=== PATIENT | female | born 1945 | race Caucasian/White ===

== ENCOUNTER 2018-05-03 15:05 | Emergency (ER) | payer OTHER, MEDICARE ==
--- OUTSIDE RECORDS SUMMARY | 2018-05-03 15:10 | XMS REPORT | Continuity of Care Document ---
:1945 Author Organization Interface Problems Problem Status Onset Classification Date Comments Source Date Reported ACUTE STROKE Active [address] SARAH Active [facility] BILLING [address] [place] [address] ACUTE STROKE Active [address] CVA Active [address] DVT (<span Resolved Problem 07/10/2014 [facility] ID="[id number] Medical 97">Confirmed Center </span>) CVA Active [facility] Medications Medication Details Route Status Patient Ordering Order Source Instructions Provider Date Warfarin 7.5 mg, 1 tab, Inactive [facility] Route: PO, Drug 2013 Medical form: TAB, Q5PM, Center Dosing Weight 83, kg, Start date: 07/07/14 17:00:00, Duration: 1 doses or times, Stop date: 07/07/14 17:00:00Notes: Nurse to ensure documentation of patient education per anticoagulation policy. Avoid large intake of vitamin-K containing foods diet. (Same As: Coumadin) atorvastatin 20 20 mg=1 tab, PO, Active 07/07[facility] mg oral tablet Bedtime, # 30 2014 Medical tab, 3 Refill(s) Center aspirin 325 mg 325 mg=1 tab, PO, Active 07/07[facility] tablet Daily, # 100 tab, 2014 Medical 3 Refill(s) Center warfarin 7.5 mg 7.5 mg, PO, Q5PM, Active 07/07[facility] oral tablet # 5 tab, 0 2013 Medical Refill(s) Center OLANZapine 2.5 2.5 mg=1 tab, PO, Active 07/07[facility] mg oral tablet Q6H, Agitation, 0 2013 Medical Refill(s) Center 0.4 mg=1 tab, PO, Active 07/07[facility] Multivitamins Daily, 0 2013 Medical with Folic Acid Refill(s) Center 0.4 mg oral tablet Folic Acid 1 MG 1 mg=1 tab, PO, Active 07/07[facility] Oral Tablet Daily, 0 2013 Medical Refill(s) [place] Docusate Sodium 100 mg=1 cap, PO, Active [place] 100 MG Oral Q12H, 0 Refill(s) 2013 Medical Capsule Center benzonatate 100 100 mg=1 cap, PO, Active [facility] mg oral capsule TID, Cough, 0 2013 Medical Refill(s) [place] Acetaminophen 650 mg=2 tab, PO, Active [place] 325 MG Oral Q4H, Pain 2013 Medical Tablet 1-3/Temp > 99.5 Center F, 0 Refill(s) Warfarin 5 mg, 1 tab, Inactive [place] Route: PO, Drug 2013 Medical form: TAB, Q5PM, Center Dosing Weight 83, kg, Start date: 07/06/14 17:00:00, Duration: 1 doses or times, Stop date: 07/06/14 17:00:00Notes: Nurse to ensure documentation of patient education per anticoagulation policy. Avoid large intake of vitamin-K containing foods diet. (Same As: Coumadin) cefpodoxime 100 mg, Route: Inactive [place] PO, Drug form: 2013 Medical TAB, [id number], Center Dosing Weight 83, kg, Priority: NOW, Start date: 07/06/14 11:17:00, Duration: 7 day, Stop date: 07/12/14 23:17:00 benzonatate 100 mg, 1 cap, No Longer [place] Route: PO, Drug Active 2013 Medical form: CAP, TID, Center Dosing Weight 83, kg, PRN Cough, Start date: 07/06/14 2:28:00, Duration: 30 day, Stop date: 08/05/14 2:27:00Notes: (Same As: Simran Red) "Do Not Crush" Mag-Ox 400 800 mg, 2 tab, Inactive [place] Route: PO, Drug 2013 Medical form: TAB, ONCE, Center Dosing Weight 83, kg, Start date: 07/05/14 15:55:00, Stop date: 07/05/14 15:55:00Notes: (Same as: Mag-Ox 400) Magnesium oxide [id number] elemental magnesium Dose=____mg magnesium oxide (___mg elemental magnesium) Lactated Ringers 1,000 mL, Rate: Inactive [facility] IV 1000 mL 100 ml/hr, Infuse 2013 Medical over: 10 hr, Center Route: IV, Dosing Weight 83 kg, Total Volume: 1,000, Start date: 07/05/14 11:26:00, Duration: 30 day, Stop date: 08/04/14 11:25:00 Lactated Ringers 1,000 mL, Rate: No Longer [facility] IV 1,000 mL 100 ml/hr, Infuse Active 2013 Medical over: 10 hr, Center Route: IV, Dosing Weight 83 kg, Total Volume: 1,000, Priority: STAT, Start date: 07/05/14 10:06:00, Duration: 30 day, Stop date: 08/04/14 10:05:00 Magnesium 2 gm, 50 mL, Inactive [facility] Sulfate Route: IVPB, Drug 2013 Medical form: INJ, ONCE, Center Dosing Weight 83, kg, Total dose=2 gm, Start date: 07/05/14 10:05:00, Duration: 1 doses or times, Stop date: 07/05/14 10:05:00 normal saline 1,000 mL, Rate: Inactive [facility] 0.9% IV 1,000 mL 125 ml/hr, Infuse 2013 Medical over: 8 hr, Center Route: IV, Dosing Weight 83 kg, Total Volume: 1,000, Start date: 07/05/14 9:24:00, Duration: 1 day, Stop date: 07/06/14 9:23:00 Rocephin 1 gm, Route: No Longer [facility] IVPB, Drug form: Active 2013 Medical PDR/INJ, [id number], Center Dosing Weight 83, kg, Start date: 07/05/14 8:00:00, Duration: 30 day, Stop date: 08/03/14 8:00:00Notes: Use with 100ml NS mini-bag PLUS and infuse over 30 min ZyPREXA 2.5 mg, 1 tab, Inactive [facility] Route: PO, Drug 2013 Medical form: TAB, Center Bedtime, Start date: 07/04/14 21:00:00, Duration: 1 doses or times, Stop date: 07/04/14 21:00:00Notes: (Same as: ZyPREXA) Geodon 5 mg, Route: IM, Inactive [facility] Q4H, Dosing 2013 Medical Weight 83, kg, Center Start date: 07/04/14 21:00:00, Duration: 30 day, Stop date: 08/03/14 20:00:00 ZyPREXA 2.5 mg, 1 tab, No Longer [facility] Route: PO, Drug Active 2013 Medical form: TAB, Q6H, Center PRN Agitation, Start date: 07/04/14 17:08:00, Duration: 30 day, Stop date: 08/03/14 17:07:00Notes: (Same as: ZyPREXA) folic acid 1 mg 1 mg, 1 tab, No Longer [facility] oral tablet Route: PO, Drug Active 2013 Medical form: TAB, Daily, Center Start date: 07/04/14 17:00:00, Duration: 30 day, Stop date: 08/03/14 9:00:00Notes: (Same as: Folvite) Sodium Chloride 250 mL, Rate: 999 Inactive [facility] 0.9% IV 250 mL ml/hr, Infuse 2013 Medical over: 0.3 hr, Center Route: IV, Dosing Weight 83 kg, Total Volume: 250, Start date: 07/04/14 14:45:00, Duration: 1 doses or times, Stop date: 07/04/14 15:02:00 Sodium Chloride 500 mL, Rate: 999 Inactive [facility] 0.9% IV 500 mL ml/hr, Infuse 2013 Medical over: 0.5 hr, Center Route: IV, Dosing Weight 83 kg, Total Volume: 500, Start date: 07/04/14 14:44:00, Duration: 1 doses or times, Stop date: 07/04/14 15:13:00 Benadryl 25 mg, 1 cap, Inactive [facility] Route: PO, Drug 2013 Medical form: CAP, ONCE, Center Dosing Weight 83, kg, PRN Itching, Start date: 07/04/14 12:20:00, Stop date: 08/03/14 13:19:00Notes: (Same as: Benadryl) Ativan 1 mg, 0.5 mL, Inactive [place] Route: IV, Drug 2013 Medical form: INJ, Center ONCALL, Dosing Weight 83, kg, Start date: 07/04/14 4:00:00, Duration: 1 doses or times, Stop date: 07/05/14 0:00:00Notes: (Same as: Ativan) heparin, porcine 5,000 unit, 1 mL, No Longer [facility] Route: SUB-Q, Active 2013 Medical Drug form: INJ, Center Q8H, Dosing Weight 83, kg, Start date: 07/04/14 0:00:00, Duration: 30 day, Stop date: 08/02/14 16:00:00Notes: porcine heparin aspirin 325 mg 325 mg, 1 tab, No Longer [facility] tablet Route: PO, Drug Active 2013 Medical form: ECTAB, Center Daily, Dosing Weight 83, kg, Start date: 07/03/14 22:00:00, Duration: 30 day, Stop date: 08/01/14 22:00:00Notes: (Do Not Crush) Do not crush or chew. atorvastatin 20 mg, 1 tab, No Longer [facility] Route: PO, Drug Active 2013 Medical form: TAB, Center Bedtime, Dosing Weight 83, kg, Start date: 07/03/14 21:00:00, Stop date: 08/01/14 21:00:00Notes: (Same As: Lipitor) sennosides, HALF-WAY 8.6 mg, 1 tab, No Longer [facility] Route: PO, Drug Active 2013 Medical Form: TAB, Dosing Center Weight 83, kg, BID, Start date: 07/03/14 17:00:00, Duration: 30 day, Stop date: 08/02/14 9:00:00Notes: (Same as: Senokot) pantoprazole 40 mg, Route: Inactive [place] IVP, Drug form: 2013 Medical INJ, Before Center Dinner, Dosing Weight 79.545, kg, Start date: 07/03/14 16:30:00, Duration: 30 day, Stop date: 08/01/14 16:30:00Notes: For IV push reconstitute with 10 ml 0.9% sodium chloride and push over 2 minutes. (Same as: Protonix) Sodium Chloride 1,000 mL, Rate: No Longer [place] 0.154 MEQ/ML 75 ml/hr, Infuse Active 2013 Medical Injectable over: 13.3 hr, [place] Solution Route: IV, Dosing Weight 83 kg, Total Volume: 1,000, Start date: 07/03/14 16:25:00, Duration: 12 hr, Stop date: 07/04/14 4:24:00 Thiamine 100 mg, 1 tab, No Longer [facility] Route: PO, Drug Active 2013 Medical form: TAB, Daily, Center Dosing Weight 83, kg, Start date: 07/03/14 12:00:00, Duration: 30 day, Stop date: 08/02/14 9:00:00Notes: (Same As: Vitamin B1) 1 tab, Route: PO, No Longer [place] Multivitamins Drug Form: TAB, Active 2013 Medical with Folic Acid Dosing Weight 83, Center 0.8 mg oral kg, Daily, Start tablet date: 07/03/14 12:00:00, Duration: 30 day, Stop date: 08/02/14 9:00:00 Saline Flush 10 ml, Route: No Longer [place] 0.9% IVP, Drug Form: Active 2013 Medical INJ, Dosing Center Weight 79.545, kg, Q12H, Start date: 07/03/14 9:00:00, Duration: 30 day, Stop date: 08/01/14 21:00:00Notes: (Same as: BD Posiflush) pneumococcal 0.5 ml, Route: Inactive [facility] capsular IM, Drug Form: 2013 Medical polysaccharide INJ, Daily, Start Center type 1 vaccine / date: 07/03/14 pneumococcal 9:00:00, capsular Duration: 1 doses polysaccharide or times, Stop type 10A vaccine date: 07/03/14 / pneumococcal 9:00:00Notes: capsular (Same as: polysaccharide Pneumovax 23) type 11A vaccine Refrigerate / pneumococcal capsular polysaccharide type 12F vaccine / pneumococcal capsular polysacchar Influenza Virus 0.5 mL, Route: Inactive [facility] Vaccine, IM, Drug Form: 2013 Medical Inactivated SUSP, Daily, [place] [id number] Start date: 07 (H3N2)-like 07/03/14 9:00:00, virus Duration: 1 doses ([id number] or times, Stop 007 [facility] X-175C) date: 07/03/14 strain / 9:00:00Notes: Influenza Virus (Same as: Fluzone Vaccine, Quadrivalent) Inactivated [id number] 07, IVR-148 (H1N1) strain / Influenza Virus Vaccine, Inactivated, I-Bkhdcwt-4 -lik Docusate 100 mg, 1 cap, No Longer [place] Route: PO, Drug Active 2013 Medical form: CAP, Q12H, Center Dosing Weight 83, kg, Start date: 07/03/14 9:00:00, Duration: 30 day, Stop date: 08/01/14 21:00:00Notes: (Same as: Colace) (Do Not Crush) Diltiazem 20 mg, 4 mL, Inactive [place] Route: IVP, Drug 2013 Medical form: INJ, ONCE, Center Dosing Weight 83, kg, PRN Other -See Comment, Start date: 07/03/14 8:58:00Notes: (Same as: Cardizem) magnesium 2 gm, 50 mL, Inactive [facility] sulfate Route: IVPB, Drug 2013 Medical form: INJ, Q2H, Center Start date: 07/03/14 6:00:00, Duration: 2 doses or times, Stop date: 07/03/14 8:00:00 calcium 3,000 mg, 30 mL, Inactive [facility] gluconate + Route: IV, ONCE, 2013 Medical Sodium Chloride Start date: [place] 0.9% IV 100 mL 07/03/14 6:00:00, Stop date: 07/03/14 6:00:00 Sodium Chloride 500 mL, 500 Inactive [facility] 0.154 MEQ/ML ml/hr, Infuse 2013 Medical Injectable Over: 1 hr, [place] Solution Route: IV, 500, Drug form: INJ, ONCE, Priority: STAT, Dosing Weight 83 kg, Start date: 07/03/14 3:50:00, Duration: 1 doses or times, Stop date: 07/03/14 3:50:00 Omnipaque 300 50 ml, Route: Inactive 07/03[facility] [place] INTRAARTERIAL, 2013 Medical Dosing Weight Center 79.545, kg, ONCE, Start date: 07/03/14 0:20:00, Stop date: 07/03/14 0:20:00 Saline Flush 10 ml, Route: No Longer [place] 0.9% IVP, Drug Form: Active 2013 Medical INJ, Dosing Center Weight 79.545, kg, PRN, PRN [place] Flush, Start date: 07/02/14 22:10:00, Duration: 30 day, Stop date: 08/01/14 21:09:00Notes: (Same as: BD Posiflush) Acetaminophen 650 mg, 2 tab, No Longer [place] Route: PO, Drug Active 2013 Medical form: TAB, Q4H, Center Dosing Weight 79.545, kg, PRN Pain 1-3/Temp > 99.5 F, Start date: 07/02/14 22:10:00, Duration: 30 day, Stop date: 08/01/14 22:09:00Notes: Do not exceed 4 gm/day. (Same as: Tylenol) Bisacodyl 10 mg, 1 supp, No Longer [place] Route: [place], Drug Active 2013 Medical form: SUPP, Center Daily, Dosing Weight 79.545, kg, PRN Constipation, Start date: 07/02/14 22:10:00, Duration: 30 day, Stop date: 08/01/14 22:09:00Notes: (Same As: Dulcolax, Bisco-Lax) Nicardipine 40 mg, 200 mL, No Longer [place] Rate: Start at 5 Active 2013 Medical mg/hr., Dosing Center Weight 79.545, kg, Route: IV, Total Volume: 200, Titrate to maintain SBP 140-180mmHg., Start Date: 07/02/14 22:10:00, Duration: 30 day, Stop date: 08/01/14 22:09:00, Replace Every: 24 hrNotes: Same as: Cardene Concentration: (0.2 mg /1 ml ) Enalapril 0.625 mg, 0.5 mL, No Longer [place] Route: IVP, Drug Active 2013 Medical form: INJ, Q6H, Center Dosing Weight 79.545, kg, PRN Hypertension, Start date: 07/02/14 22:10:00, Duration: 30 day, Stop date: 08/01/14 22:09:00, For SBP > 180mmHg and/or DBP > 105mmHgNotes: (Same as: Vasotec-IV) Labetalol 10 mg, 2 mL, No Longer [place] Route: IVP, Drug Active 2013 Medical form: INJ, Center Q10Min, Dosing Weight 79.545, kg, PRN Hypertension, Start date: 07/02/14 22:10:00, Duration: 30 day, Stop date: 08/01/14 21:09:00, For SBP > 180mmHg and/or DBP > 105mmHg Sodium Chloride 1,000 mL, Rate: No Longer [place] 0.154 MEQ/ML 75 ml/hr, Infuse Active 2013 Medical Injectable over: 13.3 hr, Center Solution Route: IV, Dosing Weight 79.545 kg, Total Volume: 1,000, Start date: 07/02/14 22:10:00, Duration: 30 day, Stop date: 08/01/14 22:09:00 Alteplase 64.4 mg, Route: Inactive [place] IV, ONCE, Dosing 2013 Medical Weight 79.545, Center kg, For Stroke Infusion, Start date: 07/02/14 21:58:00, Stop date: 07/02/14 21:58:00 Zofran 4 mg, 2 mL, No Longer [place] Route: IVP, Drug Active 2013 Medical form: INJ, Q8H, Center Dosing Weight 79.545, kg, PRN as needed for nausea/vomiting, Priority: STAT, Start date: 07/02/14 21:57:00, Duration: 30 day, Stop date: 08/01/14 21:56:00Notes: (Same as: Zofran) Zofran 4 mg, Route: IVP, Inactive [place] Drug form: INJ, 2013 Medical ONCE, Dosing Center Weight 79.545, kg, Priority: STAT, Start date: 07/02/14 21:54:00, Stop date: 07/02/14 21:54:00 iodixanol 125 mL, Route: Inactive [facility] IVP, Drug Form: 2013 Medical SOLN, Dosing Center Weight 79.545, kg, ONCALL, STAT, Start date: 07/02/14 21:53:00, Duration: 1 doses or times, Dose=2.2ml/kg, Max [id number]=[id number] -- "To be infused by Radiology Staff ONLY"Special Instructions: Dose=2.2ml/kg, Max mqur=[id number] -- "To be infused by Radiology Staff ONLY" aspirin 0 Refill(s) No Longer [facility] Active 2013 [facility] Saline Flush 10 mL, Route: No Longer [facility] 0.9% IVP, Drug Form: Active 2013 [facility] INJ, kg, PRN, PRN [place] Flush, Start date: 07/02/14 21:34:00, Duration: 30 day, Stop date: 08/01/14 20:33:00Notes: (Same as: BD Posiflush) Allergies, Adverse Reactions, Alerts Substance Category Reaction Severity Reaction Status Date Comments Source type Reported sulfa drugs Assertion Drug Active [facility] Immunizations Immunization Date Given Site Status Last Comments Source Updated pneumococcal 07/04/2014 Left completed [facility] 23-valent vaccine [facility] influenza virus 07/04/2014 Right completed [facility] vaccine, [facility] Results Order Name Results Value Reference Date Interpretation Comments Source Range URINE AND Occult Bld Negative Negative 07/07 [facility] STOOL [facility] (07/07/14 3:42 PM) Center ELECTROLYTE AGAP 14.5 meq/L 10.0 - 07/07 [facility] S 20.0 [facility] ELECTROLYTE Potassium Lvl 4.5 meq/L 3.5 - 5.1 07/07 [facility] S [facility] ELECTROLYTE Sodium Lvl 142 meq/L 135 - 145 07/07 [facility] S [facility] ELECTROLYTE Calcium Lvl 8.6 mg/dL 8.5 - 10.5 07/07 [facility] S [facility] ELECTROLYTE CO2 22 meq/L 24 - 32 07/07 [facility] S [facility] ELECTROLYTE Chloride Lvl 110 meq/L 95 - 109 07/07 [facility] S [facility] ELECTROLYTE eGFR 58 07/07 1Result Comment: The eGFR is calculated using the CKD-EPI formula. In most young, healthy individuals the eGFR will be > 90 mL/min/1.73m2. The eGFR declines with age. An eGFR of 60-89 may be normal in [facility] mL/min/1. some populations, particularly the elderly, for whom the CKD-EPI formula has not been extensively validated. Use of the eGFR is not recommended in the following populations: [address] Individuals with unstable creatinine concentrations, including patients and those with serious co-morbid conditions. Patients with extremes in muscle mass or diet. The data above are obtained from the National Kidney Disease Education Program (NKDEP) which additionally recommends that when the eGFR is used in patients with extremes of body mass index for purposes of drug dosing, the eGFR should be multiplied by the estimated BMI. ELECTROLYTE Creatinine 1.0 mg/dL 0.5 - 1.4 07/07 [facility] Lvl [facility] ELECTROLYTE BUN 23 mg/dL 7 - 07/07 [facility] S [facility] ELECTROLYTE Glucose Lvl 97 mg/dL 70 - 99 07/07 4Interpretive Data: Adult reference range values reflect the clinical guidelines [facility] of the [employer]. [facility] HEMATOLOGY PT 12.7 s 12.0 - 07/07 [facility] . [facility] HEMATOLOGY INR 0.95 0.85 - 07/07 10Interpretive Data: RECOMMENDED RANGES FOR PROTIME INR: [facility] 1.17 2.0-3.0 for most medical and surgical thromboembolic states. Medical 2.5-3.5 for artificial heart valves and recurrent embolism. Center INR SHOULD BE USED ONLY FOR PATIENTS ON STABLE ANTICOAGULANT THERAPY. HEMATOLOGY RDW 13.8 % 11.5 - 07/07 [place] 14.5 [facility] HEMATOLOGY RBC 3.59 M/CMM 4.20 - 07/07 [place] 5.40 [facility] HEMATOLOGY WBC 12.1 K/CMM 3.7 - 10.4 07/07 [facility] HEMATOLOGY Hgb 11.5 g/dL 12.0 - 07/07 [place] 16.0 [facility] HEMATOLOGY Hct 36.0 % 36.0 - 07/07 [place] 48.0 [facility] HEMATOLOGY MCV 100.3 fL 80.0 - 07/07 [place] 98.0 /2013 [facility] HEMATOLOGY MCH 32.0 pg 27.0 - 07/07 [place] 31.0 [facility] HEMATOLOGY MCHC 31.9 g/dL 32.0 - 07/07 36.0 [facility] HEMATOLOGY MPV 11.4 fL 7.4 - 10.4 07/07 [facility] HEMATOLOGY Platelet 175 K/CMM 133 - 450 07/07 [facility] HEMATOLOGY Monocytes 14.9 % 2.0 - 12.0 07/07 [facility] HEMATOLOGY Eosinophils 3.5 % 0.0 - 4.0 07/07 [facility] HEMATOLOGY Basophils 0.4 % 0.0 - 1.0 07/07 [facility] HEMATOLOGY Lymphocytes # 3.9 K/CMM 1.0 - 5.5 07/07 [facility] HEMATOLOGY Monocytes # 1.8 K/CMM 0.0 - 0.8 07/07 [facility] HEMATOLOGY Segs-Bands # 5.9 K/CMM 1.5 - 8.1 07/07 [facility] HEMATOLOGY Eosinophils # 0.4 K/CMM 0.0 - 0.5 07/07 [facility] HEMATOLOGY Macrocyte 1+ None Seen 07/07 Medical *ABN* Center (07/07/14 1:00 AM) HEMATOLOGY Lymphocytes 32.6 % 20.0 - 07/07 [facility] 40.0 /2013 [facility] HEMATOLOGY Segs 48.6 % 45.0 - 07/07 [facility] 75.0 /2013 [facility] HEMATOLOGY PT 13.9 s 12.0 - 07/07 [facility] 14.7 [facility] HEMATOLOGY INR 1.07 0.85 - 07/07 11Interpretive Data: RECOMMENDED RANGES FOR PROTIME INR: [facility] 1. 2.0-3.0 for most medical and surgical thromboembolic states. Medical 2.5-3.5 for artificial heart valves and recurrent embolism. Center INR SHOULD BE USED ONLY FOR PATIENTS ON STABLE ANTICOAGULANT THERAPY. HEMATOLOGY PTT 35.0 s 22.9 - 07/07 13Interpretiv [facility] 35.8 e Data: [facility] Center Therapeutic Range: 57 - 92 Seconds ANEMIA Folate Lvl 14.3 ng/mL >=3.0 07/06 [facility] STUDY ng/mL [facility] ANEMIA Vitamin B12 908 pg/mL 254 - 1320 07/06 [facility] STUDY Lvl [facility] ANEMIA UIBC 245 ug/dl 110 - 370 07/06 [facility] ANEMIA % [place] 18 % 12 - 57 07/06 [facility] ANEMIA Iron 52 ug/dl 30 - 160 07/06 [facility] ANEMIA TIBC 297 ug/dl 228 - 428 07/06 [facility] ANEMIA Transferrin 227 mg/dL 212 - 360 07/06 [facility] HEMATOLOGY Monocytes 15.2 % 2.0 - 12.0 07/06 [facility] HEMATOLOGY Eosinophils # 0.3 K/CMM 0.0 - 0.5 07/06 [facility] HEMATOLOGY Monocytes # 1.6 K/CMM 0.0 - 0.8 07/06 [facility] HEMATOLOGY Basophils 0.4 % 0.0 - 1.0 07/06 [facility] HEMATOLOGY Eosinophils 3.2 % 0.0 - 4.0 07/06 [facility] HEMATOLOGY Lymphocytes # 3.4 K/CMM 1.0 - 5.5 07/06 [facility] HEMATOLOGY Segs-Bands # 5.3 K/CMM 1.5 - 8.1 07/06 [facility] HEMATOLOGY Segs 49.6 % 45.0 - 07/06 75.0 [facility] HEMATOLOGY Plt Morph Normal 07/06 [facility] (07/06/14 2:30 AM) [place] HEMATOLOGY Lymphocytes 31.6 % 20.0 - 07/06 40. [facility] HEMATOLOGY RBC Morph Normal 07/06 [facility] (07/06/14 2:30 AM) Center HEMATOLOGY WBC 10.6 K/CMM 3.7 - 10.4 07/06 [facility] HEMATOLOGY MCV 97.8 fL 80.0 - 07/06 98.0 [facility] HEMATOLOGY Hct 37.0 % 36.0 - 07/06 48. [facility] HEMATOLOGY Hgb 12.1 g/dL 12.0 - 07/06 16. [facility] HEMATOLOGY RBC 3.78 M/CMM 4.20 - 07/06 [place] 5. [facility] HEMATOLOGY MCHC 32.8 g/dL 32.0 - 07/06 [place] 36.0 [facility] HEMATOLOGY MCH 32.1 pg 27.0 - 07/06 [place] 31.0 [facility] HEMATOLOGY RDW 13.9 % 11.5 - 07/06 14. [facility] HEMATOLOGY MPV 12.2 fL 7.4 - 10.4 07/06 [facility] HEMATOLOGY Platelet 167 K/CMM 133 - 450 07/06 [facility] CARDIAC Troponin-T null 0.000 - 07/05 [place] ENZYMES 0.100 [facility] CARDIAC Total CK 123 unit/L 12 - 191 07/05 ENZYMES [facility] CARDIAC Troponin-I 0.02 ng/mL 0.00 - 07/05 [facility] ENZYMES 0.40 [facility] CARDIAC CK MB Index 1.0 0.0 - 2.5 07/05 ENZYMES [facility] CARDIAC CK MB 1.2 ng/mL 0.5 - 3.6 07/05 [facility] HEMATOLOGY Basophils 0.7 % 0.0 - 1.0 07/05 [facility] HEMATOLOGY Eosinophils 2.4 % 0.0 - 4.0 07/05 [facility] HEMATOLOGY Segs-Bands # 5.3 K/CMM 1.5 - 8.1 07/05 [facility] HEMATOLOGY Lymphocytes # 2.1 K/CMM 1.0 - 5.5 07/05 [facility] HEMATOLOGY Monocytes # 1.4 K/CMM 0.0 - 0.8 07/05 [facility] HEMATOLOGY Eosinophils # 0.2 K/CMM 0.0 - 0.5 07/05 [facility] HEMATOLOGY Basophils # 0.1 K/CMM 0.0 - 0.2 07/05 [facility] HEMATOLOGY Segs 58.2 % 45.0 - 07/05 [place] 75.0 [facility] HEMATOLOGY Monocytes 15.5 % 2.0 - 12.0 07/05 [facility] HEMATOLOGY Lymphocytes 23.2 % 20.0 - 07/05 [place] 40.0 [facility] HEMATOLOGY MCHC 33.0 g/dL 32.0 - 07/05 36.0 [facility] HEMATOLOGY RDW 14.0 % 11.5 - 07/05 [facility] [place] 14. [facility] HEMATOLOGY WBC 9.1 K/CMM 3.7 - 10.4 07/05 [facility] HEMATOLOGY RBC 3.13 M/CMM 4.20 - 07/05 5.40 [facility] HEMATOLOGY Hgb 10.1 g/dL 12.0 - 07/05 16.0 [facility] HEMATOLOGY Platelet 142 K/CMM 133 - 450 07/05 [facility] HEMATOLOGY MPV 12.1 fL 7.4 - 10.4 07/05 [facility] HEMATOLOGY Hct 30.7 % 36.0 - 07/05 48.0 [facility] HEMATOLOGY MCH 32.3 pg 27.0 - 07/05 31.0 [facility] HEMATOLOGY MCV 98.0 fL 80.0 - 07/05 [facility] 98.0 [facility] HEMATOLOGY Basophils # 0.1 K/CMM 0.0 - 0.2 07/05 [facility] CHEM PANEL Magnesium Lvl 1.6 mg/dL 1.8 - 2.4 07/05 [facility] CHEM PANEL Phosphorus 3.7 mg/dL 2.5 - 4.5 07/05 [facility] CHEM PANEL eGFR 76 07/05 2Result Comment: The eGFR is calculated using the CKD-EPI formula. In most young, healthy individuals the eGFR will be >90 mL/ min/1.73m2. The eGFR declines with age. An eGFR of 60-89 may be normal in [facility] mL/min/1.7 some populations, particularly the elderly, for whom the CKD-EPI formula has not been extensively validated. Use of the eGFR is not recommended in the following populations: [address] Individuals with unstable creatinine concentrations, including patients and those with serious co-morbid conditions. Patients with extremes in muscle mass or diet. The data above are obtained from the National Kidney Disease Education Program (NKDEP) which additionally recommends that when the eGFR is used in patients with extremes of body mass index for purposes of drug dosing, the eGFR should be multiplied by the estimated BMI. CHEM PANEL CO2 25 meq/L 24 - 32 07/05 [facility] CHEM PANEL Calcium Lvl 8.3 mg/dL 8.5 - 10.5 07/05 [facility] CHEM PANEL Sodium Lvl 145 meq/L 135 - 145 07/05 [facility] CHEM PANEL BUN 15 mg/dL 7 - 22 07/05 [facility] CHEM PANEL Creatinine 0.8 mg/dL 0.5 - 1.4 07/05 [facility] CHEM PANEL Chloride Lvl 112 meq/L 95 - 109 07/05 [facility] CHEM PANEL Potassium Lvl 4.5 meq/L 3.5 - 5.1 07/05 [facility] CHEM PANEL Glucose Lvl 89 mg/dL 70 - 99 07/05 5Interpretive Data: Adult reference range values reflect the clinical guidelines of the [employer]. [facility] CHEM PANEL AGAP 12.5 meq/L 10.0 - 07/05 . [facility] DRUG SCREEN U Phencyc Scr Negative Negative 07/05 Medical *NA* [place] (07/04/14 7:50 PM) DRUG SCREEN UDS Note See Note 8 07/05 8Interpretive Data: Drugs reported as positive have not been confirmed by a second method and should be used for medical purposes only. To order Medical (07/04/14 7:50 PM) confirmation, contact laboratory. Center note: Below are cut-off concentrations for all urine drugs of abuse performed in the laboratory. Some drugs listed in the table may not be included in this panel. Description Cut-off concentration Amphetamine 1000 ng/mL Barbiturates 200 ng/mL Benzodiazepines 300 ng/mL Cocaine metabolites 300 ng/mL Opiates 300 ng/mL Phencyclidine 25 ng/mL Propoxyphene 300 ng/mL Marijuana metabolites 50 ng/mL Methadone 300 ng/mL Urine alcohol 20 mg/dL DRUG SCREEN U Shauna Scr Negative Negative 07/05 Medical *NA* Center (07/04/14 7:50 PM) DRUG SCREEN U Benzodia Positive Negative 07/05 Medical *ABN* Center (07/04/14 7:50 PM) DRUG SCREEN U Cannab Scr Negative Negative 07/05 Medical *NA* Center (07/04/14 7:50 PM) DRUG SCREEN U Cocaine Scr Negative Negative 07/05 [facility] *NA* Center (07/04/14 7:50 PM) DRUG SCREEN U Opiate Scr Negative Negative 07/05 [facility] *NA* Center (07/04/14 7:50 PM) DRUG SCREEN U Amph Scr Negative Negative 07/05 [facility] *NA* Center (07/04/14 7:50 PM) URINE AND UA <=1.0 0.1 - 1.0 07/05 [facility] Urobilinogen mg/dL [facility] URINE AND UA RBC 1 /HPF 0 - 2 07/05 [facility] URINE AND UA Mucus Few /LPF None Seen 07/05 [place] STOOL /LPF [facility] URINE AND UA Hyal Cast 1 /LPF 0 - 2 07/05 [facility] URINE AND UA WBC 9 /HPF 0 - 5 07/05 [facility] URINE AND UA Glucose Negative Negative 07/05 [facility] mg/dL mg/dL [facility] URINE AND UA Ketones Negative Negative 07/05 [facility] mg/dL mg/dL [facility] URINE AND UA pH 5.0 5.0 - 8.0 07/05 [facility] URINE AND UA Protein Negative Negative 07/05 [facility] mg/dL mg/dL [facility] URINE AND UA Spec Grav 1.010 <=1.030 07/05 [facility] URINE AND UA Leuk Est Moderate Negative 07/05 [facility] *ABN* Center (07/04/14 7:50 PM) URINE AND UA Sq Epi Few /LPF Few /LPF 07/05 [facility] URINE AND UA Bili Negative Negative 07/05 [facility] Medical *NA* [place] (07/04/14 7:50 PM) URINE AND UA Blood Negative Negative 07/05 [facility] (07/04/14 7:50 PM) Center URINE AND UA Nitrite Negative Negative 07/05 [facility] (07/04/14 7:50 PM) Center URINE AND UA Color Yellow Yellow 07/05 [facility] Medical *NA* Center (07/04/14 7:50 PM) URINE AND UA Turbidity Clear Clear 07/05 [facility] (07/04/14 7:50 PM) [place] CHEM PANEL Lactic Acid 1.0 mMol/L 0.5 - 2.2 07/04 [facility] CHEM PANEL Globulin 2.5 g/dL 2.0 - 4.0 07/04 [facility] CHEM PANEL A/G Ratio 1.3 0.7 - 1.6 07/04 [facility] CHEM PANEL Bili Indirect 0.3 mg/dL 0.0 - 1.0 07/04 [facility] CHEM PANEL Total Protein 5.7 g/dL 6.4 - 8.4 07/04 [facility] CHEM PANEL Alk Phos 61 unit/L 39 - 136 07/04 [facility] CHEM PANEL Albumin Lvl 3.2 g/dL 3.5 - 5.0 07/04 [facility] CHEM PANEL ALT 21 unit/L 0 - 65 07/04 [facility] CHEM PANEL AST 16 unit/L 0 - 37 07/04 [facility] CHEM PANEL Bili Direct 0.1 mg/dL 0.0 - 0.3 07/04 [facility] CHEM PANEL Bili Total 0.4 mg/dL 0.2 - 1.3 07/04 [facility] CHEM PANEL Phosphorus 3.3 mg/dL 2.5 - 4.5 07/04 [facility] CHEM PANEL Magnesium Lvl 1.8 mg/dL 1.8 - 2.4 07/04 [facility] CHEM PANEL eGFR 66 07/04 3Result Comment: The eGFR is calculated using the CKD-EPI formula. In most young, healthy individuals the eGFR will be >90 mL/ min/1.73m2. The eGFR declines with age. An eGFR of 60-89 may be normal in [facility] mL/min/1. some populations, particularly the elderly, for whom the CKD-EPI formula has not been extensively validated. Use of the eGFR is not recommended in the following populations: [place] [address] [facility] Individuals with unstable creatinine concentrations, including patients and those with serious co-morbid conditions. Patients with extremes in muscle mass or diet. The data above are obtained from the National Kidney Disease Education Program (NKDEP) which additionally recommends that when the eGFR is used in patients with extremes of body mass index for purposes of drug dosing, the eGFR should be multiplied by the estimated BMI. CHEM PANEL AGAP 11.5 meq/L 10.0 - 07/04 20.0 [facility] CHEM PANEL Calcium Lvl 8.3 mg/dL 8.5 - 10.5 07/04 [facility] CHEM PANEL Sodium Lvl 144 meq/L 135 - 145 07/04 [facility] CHEM PANEL Potassium Lvl 4.5 meq/L 3.5 - 5.1 07/04 [facility] CHEM PANEL Chloride Lvl 113 meq/L 95 - 109 07/04 [facility] CHEM PANEL CO2 24 meq/L 24 - 32 07/04 [facility] CHEM PANEL Glucose Lvl 107 mg/dL 70 - 99 07/04 6Interpretive Data: Adult reference range values reflect the clinical guidelines of the [employer]. [facility] CHEM PANEL BUN 12 mg/dL 7 - 22 07/04 [facility] CHEM PANEL Creatinine 0.9 mg/dL 0.5 - 1.4 07/04 [facility] HEMATOLOGY INR 1.14 0.85 - 07/04 12Interpretive Data: RECOMMENDED RANGES FOR PROTIME INR: [facility] . 2.0-3.0 for most medical and surgical thromboembolic states. Medical 2.5-3.5 for artificial heart valves and recurrent embolism. Center INR SHOULD BE USED ONLY FOR PATIENTS ON STABLE ANTICOAGULANT THERAPY. HEMATOLOGY PTT 26.0 s 22.9 - 07/04 14Interpretiv [facility] 35.8 2014 e Data: [facility] Therapeutic Range: 57 - 92 Seconds HEMATOLOGY PT 14.7 s 12.0 - 07/04 [facility] 14.7 [facility] PARATHYROID Ca Norm WB 1.06 1.05 - 07/04 [facility] PROFILE mMol/L . [facility] PARATHYROID Ca Ion WB 1.06 1.05 - 07/04 [facility] PROFILE mMol/L . [facility] DRUG SCREEN UDS Note See Note 9 07/03 9Interpretive Data: Drugs reported as positive have not been confirmed by a second method and should be used for medical purposes only. To order Medical *NA* confirmation, contact laboratory. [place] (07/03/14 10:50 AM) note: Below are cut-off concentrations for all urine drugs of abuse performed in the laboratory. Some drugs listed in the table may not be included in this panel. Description Cut-off concentration Amphetamine 1000 ng/mL Barbiturates 200 ng/mL Benzodiazepines 300 ng/mL Cocaine metabolites 300 ng/mL Opiates 300 ng/mL Phencyclidine 25 ng/mL Propoxyphene 300 ng/mL Marijuana metabolites 50 ng/mL Methadone 300 ng/mL Urine alcohol 20 mg/dL DRUG SCREEN U Opiate Scr Negative Negative 07/03 [facility] [place] (07/03/14 10:50 AM) DRUG SCREEN U Phencyc Scr Negative Negative 07/03 [facility] *NA* [place] (07/03/14 10:50 AM) DRUG SCREEN U Cocaine Scr Negative Negative 07/03 [facility] [place] (07/03/14 10:50 AM) DRUG SCREEN U Benzodia Negative Negative 07/03 [facility] *NA* [place] (07/03/14 10:50 AM) DRUG SCREEN U Cannab Scr Negative Negative 07/03 [facility] [place] (07/03/14 10:50 AM) DRUG SCREEN U Amph Scr Negative Negative 07/03 [facility] *NA* [place] (07/03/14 10:50 AM) DRUG SCREEN U Shauna Scr Negative Negative 07/03 [facility] *NA* [place] (07/03/14 10:50 AM) LIPIDS CHD Risk 1.95 3.90 - 07/03 [place] 5.80 /2013 [facility] LIPIDS VLDL 8 07/03 [facility] LIPIDS LDL 72 mg/dL <=99 mg/dL 07/03 [place] (Calculated) [facility] LIPIDS Trig 42 mg/dL <=149 07/03 [place] mg/dL [facility] LIPIDS Chol 164 mg/dL <=199 07/03 [place] mg/dL [facility] LIPIDS HDL 84 mg/dL >=61 mg/dL 07/03 7Result Comment: Medical Specimen Center Slightly Hemolyzed. SPECIAL Hgb A1C 4.9 % <=5.6 % 07/03 [facility] CHEMISTRY [facility] URINE AND UA <=1.0 0.1 - 1.0 07/03 [facility] Urobilinogen mg/dL [facility] URINE AND UA Bacteria Occasional None Seen 07/03 [facility] STOOL /HPF /HPF /2013 [facility] URINE AND UA Mucus Few /LPF None Seen 07/03 [facility] STOOL /LPF [facility] URINE AND UA Amorph Occasional None Seen 07/03 [facility] STOOL Christin /HPF /HPF [facility] URINE AND UA Sq Epi Occasional Few /LPF 07/03 [facility] /LPF [facility] URINE AND UA WBC 4 /HPF 0 - 5 07/03 [facility] URINE AND UA Nitrite Negative Negative 07/03 [facility] (07/03/14 10:50 AM) [place] URINE AND UA Blood Negative Negative 07/03 [facility] (07/03/14 10:50 AM) [place] URINE AND UA Ketones Negative Negative 07/03 [facility] mg/dL mg/dL [facility] URINE AND UA RBC 2 /HPF 0 - 2 07/03 [facility] URINE AND UA Leuk Est Negative Negative 07/03 [facility] (07/03/14 10:50 AM) [place] URINE AND UA Color Light Yellow Yellow 07/03 [facility] *NA* [place] (07/03/14 10:50 AM) URINE AND UA pH 5.0 5.0 - 8.0 07/03 [facility] URINE AND UA Bili Negative Negative 07/03 [facility] Medical *NA* [place] (07/03/14 10:50 AM) URINE AND UA Glucose Negative Negative 07/03 [facility] mg/dL mg/dL [facility] URINE AND UA Turbidity Slight Clear 07/03 [facility] *ABN* [place] (07/03/14 10:50 AM) URINE AND UA Spec Grav 1.007 <=1.030 07/03 [facility] URINE AND UA Protein Negative Negative 07/03 [facility] mg/dL mg/dL [facility] BACTERIAL - MRSA by PCR Negative 16 07/03 16Interpretive Data: Interpretive Data: The [employer] Light[employer] MRSA assay is a qualitative test for the direct detection of nasal colonization with methicillin-resistant Staphylococcus aureus (MRSA) to aid [facility] in the prevention and control of MRSA infections in healthcare settings. A positive result does not indicate an infection or require treatment. A negative result does not exclude colonization or infection. [facility] (07/03/14 3:11 AM) Center The polymerase chain reaction (PCR) assay detects a proprietary sequence indicative of the integration of the SCCmec cassette into the Staphylococcus aureus chromosome, indicating the presence of MRSA D NA. The assay utilizes FDA cleared IVD reagents. Performance characteristics have been verified by the Molecular Diagnostic Laboratory within the [facility]. The Molecular Diagnostic Labor atory is authorized under the Clinical Laboratory Improvement Amendment of 1988 (CLIA-88) to perform high complexity testing. CARDIAC Troponin-I null 0.00 - 07/03 [facility] ENZYMES 0.40 [facility] CARDIAC Total CK 51 unit/L 12 - 191 07/03 [facility] CHEM PANEL Phosphorus 2.8 mg/dL 2.5 - 4.5 07/03 [facility] CHEM PANEL Magnesium Lvl 1.7 mg/dL 1.8 - 2.4 07/03 [facility] CHEM PANEL Total Protein 5.6 g/dL 6.4 - 8.4 07/03 [facility] CHEM PANEL Albumin Lvl 3.0 g/dL 3.5 - 5.0 07/03 [facility] CHEM PANEL Globulin 2.6 g/dL 2.0 - 4.0 07/03 [facility] CHEM PANEL A/G Ratio 1.2 0.7 - 1.6 07/03 [facility] CHEM PANEL ALT 26 unit/L 0 - 65 07/03 [facility] CHEM PANEL Alk Phos 66 unit/L 39 - 136 07/03 [facility] CHEM PANEL AST 18 unit/L 0 - 37 07/03 [facility] CHEM PANEL Bili Indirect 0.1 mg/dL 0.0 - 1.0 07/03 [facility] CHEM PANEL Bili Total 0.2 mg/dL 0.2 - 1.3 07/03 [facility] CHEM PANEL Bili Direct 0.1 mg/dL 0.0 - 0.3 07/03 [facility] HEMATOLOGY PTT 28.0 s 22.9 - 07/03 15Interpretiv [place] 35.8 e Data: [facility] Therapeutic Range: 57 - 92 Seconds PARATHYROID Ca Norm WB 1.01 1.05 - 07/03 [facility] PROFILE mMol/L 1. [facility] PARATHYROID Ca Ion WB 1.04 1.05 - 07/03 [facility] PROFILE mMol/L 1.25 [facility] CARDIAC Troponin-T 0.031 0.000 - 07/03 [facility] ENZYMES ng/mL 0.100 [facility] BLOOD BANK Antibody Scrn Negative 07/03 [facility] RESULTS [facility] (07/02/14 11:20 PM) [place] BLOOD BANK ABO/Rh O POS 07/03 [facility] RESULTS [facility] CARDIAC Troponin-I null 0.00 - 07/03 [facility] ENZYMES 0.40 [facility] CARDIAC Total CK 59 unit/L 12 - 191 07/03 [facility] ENZYMES [facility] CARDIAC CK MB 0.7 ng/mL 0.5 - 3.6 07/03 [facility] ENZYMES [facility] CARDIAC CK MB Index 1.2 0.0 - 2.5 07/03 [facility] ENZYMES [facility] HEMATOLOGY Basophils # 0.0 K/CMM 0.0 - 0.2 07/03 [facility] HEMATOLOGY RBC Morph Normal 07/03 [facility] (07/02/14 10:15 PM) [place] HEMATOLOGY Plt Morph Normal 07/03 [facility] (07/02/14 10:15 PM) [place] CHEM PANEL POC 1.2 mg/dL 0.5 - 1.4 07/03 [facility] Creatinine [facility] Vital Signs Vital Sign Value Date Comments Source Systolic (mm Hg) 147 07/08/2014 [facility] Respitory Rate 35 07/08/2014 [facility] Diastolic (mm Hg) 74 07/08/2014 [facility] Respitory Rate 22 07/07/2014 [facility] Diastolic (mm Hg) 68 07/07/2014 [facility] Respitory Rate 20 07/07/2014 [facility] Systolic (mm Hg) 126 07/07/2014 [facility] Diastolic (mm Hg) 75 07/07/2014 [facility] Systolic (mm Hg) 118 07/07/2014 [facility] Heart Rate 69 07/04/2014 [facility] Heart Rate 72 07/04/2014 [facility] Heart Rate 67 07/04/2014 [facility] Height 162.56 cm 07/03/2014 [facility] Weight 83 07/03/2014 [facility] BMI Calculated 31.41 07/03/2014 [facility] Height 162.56 cm 07/03/2014 [facility] Weight 83 07/03/2014 [facility] BMI Calculated 31.41 07/03/2014 [facility] Temperature Oral (F) 97.0 F 07/03/2014 [facility] Temperature Oral (F) 97.9 F 07/03/2014 [facility] BMI Calculated 30.1 07/03/2014 [facility] Weight 79.545 07/03/2014 [facility] Height 162.56 cm 07/03/2014 [facility] Encounters Location Location Encounter Encounter Reason Attending ADM DC Status Source Details Type Number For Provider Date Date Visit [facility] [id number] [place] 07/03 07/08 [facility] [place] /2013 [facility] Outpatient [id number] SONIA 12/15 Active [facility] [place] [facility] [id number] SONIA 03/16 Active [facility] [place] [facility] [id number] SONIA 07/20 Active [facility] [place] Procedures Procedure Code Date Perfomer Comments Source Splenectomy [id number] [facility]
--- OUTSIDE RECORDS SUMMARY | 2018-05-03 15:10 | XMS REPORT | Summary of Care ---
:1945 Author Encounter LUCILLE Holman(TATY) [id number] Date(s): 07/02/14 - 07/07/[address] Discharge Disposition: Home Physician Attending: Korin Rivero MD Physician Admitting: Korin Rivero MD Reason for Visit ACUTE STROKE Vital Signs Most recent to oldest 1 2 3 [Reference Range]: Height 162.56 cm 162.56 cm 162.56 cm (07/03/14 2:11 AM) (07/03/14 2:10 AM) (07/02/14 9:34 PM) Temperature Oral 97.0 DegF 97.9 DegF [96.4-99.1 DegF] (07/02/14 10:45 PM) (07/02/14 10:00 PM) Systolic Blood Pressure 147 mmHg 126 mmHg 118 mmHg [90-140 mmHg] *HI* (07/07/14 5:00 PM) (07/07/14 3:00 PM) (07/07/14 7:00 PM) Diastolic Blood Pressure 74 mmHg 68 mmHg 75 mmHg [60-90 mmHg] (07/07/14 7:00 PM) (07/07/14 5:00 PM) (07/07/14 3:00 PM) Respiratory Rate [14-20 35 BRMIN 22 BRMIN 20 BRMIN BRMIN] *HI* *HI* (07/07/14 5:00 PM) (07/07/14 7:00 PM) (07/07/14 6:00 PM) Peripheral Pulse Rate 69 bpm 72 bpm 67 bpm [60-100 bpm] (07/04/14 5:50 AM) (07/04/14 5:47 AM) (07/04/14 5:33 AM) Weight 83 kg 83 kg 79.545 kg (07/03/14 2:11 AM) (07/03/14 2:10 AM) (07/02/14 9:34 PM) Body Mass Index 31.41 m2 31.41 m2 30.1 m2 (07/03/14 2:11 AM) (07/03/14 2:10 AM) (07/02/14 9:34 PM) Problem List Condition Effective Dates Status Health Status Informant DVT (deep venous Resolved thrombosis)(Confirmed) Allergies, Adverse Reactions, Alerts Substance Reaction Severity Status sulfa drugs Active Medications acetaminophen 650 mg, 2 tab, Route: PO, Drug form: TAB, Q4H, Dosing Weight 79.545, kg, PRN Pain 1-3/Temp > 99.5 F, Start date: 07/02/14 22:10:00, Duration: 30 day, Stop date: 08/01/14 22:09:00 Notes: Do not exceed 4 gm/day. (Same as: Tylenol) Start Date: 07/02/14 Stop Date: 07/07/14 Status: Discontinuedacetaminophen 325 mg oral tablet 650 mg=2 tab, PO, Q4H, Pain 1-3/Temp > 99.5 F, 0 Refill(s) Start Date: 07/07/14 Status: Orderedalteplase 64.4 mg, Route: IV, ONCE, Dosing Weight 79.545, kg, For Stroke Infusion, Start date: 07/02/14 21:58:00, Stop date: 07/02/14 21:58:00 Start Date: 07/02/14 Stop Date: 07/02/14 Status: Completedalteplase 7.2 mg, Route: IV, ONCE, Dosing Weight 79.545, kg, For Stroke Bolus, Start date : 07/02/14 21:58:00, Stop date: 07/02/14 21:58:00 Start Date: 07/02/14 Stop Date: 07/02/14 Status: Completedaspirin 0 Refill(s) Start Date: 07/02/14 Stop Date: 07/07/14 Status: Discontinuedaspirin 325 mg tablet 325 mg=1 tab, PO, Daily, # 100 tab, 3 Refill(s) Start Date: 07/07/14 Status: Orderedaspirin 325 mg tablet 325 mg, 1 tab, Route: PO, Drug form: ECTAB, Daily, Dosing Weight 83, kg, Start date: 07/03/14 22:00:00, Duration: 30 day, Stop date: 08/01/14 22:00:00 Notes: (Do Not Crush) Do not crush or chew. Start Date: 07/03/14 Stop Date: 07/07/14 Status: DiscontinuedAtivan 1 mg, 0.5 mL, Route: IV, Drug form: INJ, ONCALL, Dosing Weight 83, kg, Start date: 07/04/14 4:00:00,Duration: 1 doses or times, Stop date: 07/05/14 0:00:00 Notes: (Same as: Ativan) Start Date: 07/04/14 Stop Date: 07/04/14 Status: Completedatorvastatin 20 mg, 1 tab, Route: PO, Drug form: TAB, Bedtime, Dosing Weight 83, kg, Start date: 07/03/14 21:00:00, Stop date: 08/01/14 21:00:00 Notes: (Same As: Lipitor) Start Date: 07/03/14 Stop Date: 07/07/14 Status: Discontinuedatorvastatin 20 mg oral tablet 20 mg=1 tab, PO, Bedtime, # 30 tab, 3 Refill(s) Start Date: 07/07/14 Status: OrderedBenadryl 25 mg, 1 cap, Route: PO, Drug form: CAP, ONCE, Dosing Weight 83, kg, PRN Itching , Start date: 07/04/14 12:20:00, Stop date: 08/03/14 13:19:00 Notes: (Same as: Benadryl) Start Date: 07/04/14 Stop Date: 07/04/14 Status: Completedbenzonatate 100 mg, 1 cap, Route: PO, Drug form: CAP, TID, Dosing Weight 83, kg, PRN Cough, Start date: 142:28:00, Duration: 30 day, Stop date: 08/05/14 2:27:00 Notes: (Same As: Simran Red)"Do Not Crush" Start Date: 07/06/14 Stop Date: 07/07/14 Status: Discontinuedbenzonatate 100 mg oral capsule 100 mg=1 cap, PO, TID, Cough, 0 Refill(s) Start Date: 07/07/14 Status: Orderedbisacodyl 10 mg, 1 supp, Route: IN, Drug form: SUPP, Daily, Dosing Weight 79.545, kg, PRN Constipation, Start date: 07/02/14 22:10:00, Duration: 30 day, Stop date: 22:09:00 Notes: (Same As: Dulcolax, Bisco-Lax) Start Date: 07/02/14 Stop Date: 07/07/14 Status: Discontinuedcalcium gluconate + Sodium Chloride 0.9% IV 100 mL 3,000 mg, 30 mL, Route: IV, ONCE, Start date: 07/03/14 6:00:00, Stop date: 07/03 6:00:00 Start Date: 07/03/14 Stop Date: 07/03/14 Status: Completedcefpodoxime 100 mg, Route: PO, Drug form: TAB, [id number], Dosing Weight 83, kg, Priority: NOW , Start date: 07/06/14 11:17:00, Duration: 7 day, Stop date: 07/12/14 23:17:00 Start Date: 07/06/14 Stop Date: 07/06/14 Status: Deleteddiltiazem 20 mg, 4 mL, Route: IVP, Drug form: INJ, ONCE, Dosing Weight 83, kg, PRN Other - See Comment, Start date: 07/03/14 8:58:00 Notes: (Same as: Cardizem) Start Date: 07/03/14 Stop Date: 07/03/14 Status: Completeddocusate 100 mg, 1 cap, Route: PO, Drug form: CAP, Q12H, Dosing Weight 83, kg, Start date : 07/03/14 9:00:00, Duration: 30 day, Stop date: 08/01/14 21:00:00 Notes: (Same as: Colace) (Do Not Crush) Start Date: 07/03/14 Stop Date: 07/07/14 Status: Discontinueddocusate sodium 100 mg oral capsule 100 mg=1 cap, PO, Q12H, 0 Refill(s) Start Date: 07/07/14 Status: Orderedenalapril 0.625 mg, 0.5 mL, Route: IVP, Drug form: INJ, Q6H, Dosing Weight 79.545, kg, PRN Hypertension, Startdate: 07/02/14 22:10:00, Duration: 30 day, Stop date: 22:09:00, For SBP > 180mmHg and/or DBP > 105mmHg Notes: (Same as: Vasotec-IV) Start Date: 07/02/14 Stop Date: 07/07/14 Status: Discontinuedfolic acid 1 mg oral tablet 1 mg, 1 tab, Route: PO, Drug form: TAB, Daily, Start date: 07/04/14 17:00:00, Duration: 30 day, Stopdate: 08/03/14 9:00:00 Notes: (Same as: Folvite) Start Date: 07/04/14 Stop Date: 07/07/14 Status: Discontinuedfolic acid 1 mg oral tablet 1 mg=1 tab, PO, Daily, 0 Refill(s) Start Date: 07/07/14 Status: OrderedGeodon 5 mg, Route: IM, Q4H, Dosing Weight 83, kg, Start date: 07/04/14 21:00:00, Duration: 30 day, Stop date: 08/03/14 20:00:00 Start Date: 07/04/14 Stop Date: 07/04/14 Status: Deletedheparin 5,000 unit, 1 mL, Route: SUB-Q, Drug form: INJ, Q8H, Dosing Weight 83, kg, Start date: 07/04/14 0:00:00, Duration: 30 day, Stop date: 08/02/14 16:00:00 Notes: porcine heparin Start Date: 07/04/14 Stop Date: 07/07/14 Status: Discontinuedinfluenza virus vaccine, inactivated 0.5 mL, Route: IM, Drug Form: SUSP, Daily, Start date: 07/03/14 9:00:00, Duration: 1 doses or times,Stop date: 07/03/14 9:00:00 Notes: (Same as: Fluzone Quadrivalent) Start Date: 07/03/14 Stop Date: 07/03/14 Status: Completedlabetalol 10 mg, 2 mL, Route: IVP, Drug form: INJ, Q10Min, Dosing Weight 79.545, kg, PRN Hypertension, Start date: 07/02/14 22:10:00, Duration: 30 day, Stop date: 21:09:00, For SBP > 180mmHg and/or DBP > 105mmHg Start Date: 07/02/14 Stop Date: 07/07/14 Status: DiscontinuedLactated Ringers IV 1,000 mL 1,000 mL, Rate: 100 ml/hr, Infuse over: 10 hr, Route: IV, Dosing Weight 83 kg, Total Volume: 1,000, Priority: STAT, Start date: 07/05/14 10:06:00, Duration: 30 day, Stop date: 08/04/14 10:05:00 Start Date: 07/05/14 Stop Date: 07/06/14 Status: DiscontinuedLactated Ringers IV 1000 mL 1,000 mL, Rate: 100 ml/hr, Infuse over: 10 hr, Route: IV, Dosing Weight 83 kg, Total Volume: 1,000, Start date: 07/05/14 11:26:00, Duration: 30 day, Stop date : 08/04/14 11:25:00 Start Date: 07/05/14 Stop Date: 07/05/14 Status: DeletedMag-Ox 400 800 mg, 2 tab, Route: PO, Drug form: TAB, ONCE, Dosing Weight 83, kg, Start date : 07/05/14 15:55:00,Stop date: 07/05/14 15:55:00 Notes: (Same as: Mag-Ox 400)Magnesium oxide [id number] elemental magnesiumDose= ____mg magnesium oxide (___mg elemental magnesium) Start Date: 07/05/14 Stop Date: 07/05/14 Status: Completedmagnesium sulfate 2 gm, 50 mL, Route: IVPB, Drug form: INJ, Q2H, Start date: 07/03/14 6:00:00, Duration: 2 doses or times, Stop date: 07/03/14 8:00:00 Start Date: 07/03/14 Stop Date: 07/03/14 Status: Completedmagnesium sulfate 2 gm, 50 mL, Route: IVPB, Drug form: INJ, ONCE, Dosing Weight 83, kg, Total dose =2 gm, Start date: 07/05/14 10:05:00, Duration: 1 doses or times, Stop date: 10:05:00 Start Date: 07/05/14 Stop Date: 07/05/14 Status: CompletedniCARdipine 40 mg in NS 200 ml IV 40 mg 40 mg, 200 mL, Rate: Start at 5 mg/hr., Dosing Weight 79.545, kg, Route: IV, Total Volume: 200, Titrate to maintain SBP 140-180mmHg., Start Date: 07/02/14 22 :10:00, Duration: 30 day, Stop date: 08/01/14 22:09:00, Replace Every: 24 hr Notes: Same as: CardeneConcentration: (0.2 mg /1 ml ) Start Date: 07/02/14 Stop Date: 07/03/14 Status: Discontinuednormal saline 0.9% IV 1,000 mL 1,000 mL, Rate: 125 ml/hr, Infuse over: 8 hr, Route: IV, Dosing Weight 83 kg, Total Volume: 1,000, Start date: 07/05/14 9:24:00, Duration: 1 day, Stop date: 07/06/14 9:23:00 Start Date: 07/05/14 Stop Date: 07/05/14 Status: DiscontinuedNS (Bolus) IV 500 mL, 500 ml/hr, Infuse Over: 1 hr, Route: IV, 500, Drug form: INJ, ONCE, Priority: STAT, Dosing Weight 83 kg, Start date: 07/03/14 3:50:00, Duration: 1 doses or times, Stop date: 07/03/14 3:50:00 Start Date: 07/03/14 Stop Date: 07/03/14 Status: CompletedOLANZapine 2.5 mg oral tablet 2.5 mg=1 tab, PO, Q6H, Agitation, 0 Refill(s) Start Date: 07/07/14 Status: OrderedOmnipaque 300 50 ml, Route: INTRAARTERIAL, Dosing Weight 79.545, kg, ONCE, Start date: 0:20:00, Stop date: 07/03/14 0:20:00 Start Date: 07/03/14 Stop Date: 07/03/14 Status: Completedpantoprazole 40 mg, Route: IVP, Drug form: INJ, Before Dinner, Dosing Weight 79.545, kg, Start date: 07/03/14 16:30:00, Duration: 30 day, Stop date: 08/01/14 16:30:00 Notes: For IV push reconstitute with 10 ml 0.9% sodium chloride and push over 2 minutes. (Same as: Protonix) Start Date: 07/03/14 Stop Date: 07/03/14 Status: Canceledpneumococcal 23-valent vaccine 0.5 ml, Route: IM, Drug Form: INJ, Daily, Start date: 07/03/14 9:00:00, Duration : 1 doses or times, Stop date: 07/03/14 9:00:00 Notes: (Same as: Pneumovax 23) Refrigerate Start Date: 07/03/14 Stop Date: 07/03/14 Status: CompletedPrenatal Multivitamins with Folic Acid 0.4 mg oral tablet 0.4 mg=1 tab, PO, Daily, 0 Refill(s) Start Date: 07/07/14 Status: OrderedPrenatal Multivitamins with Folic Acid 0.8 mg oral tablet 1 tab, Route: PO, Drug Form: TAB, Dosing Weight 83, kg, Daily, Start date: 07/03 12:00:00, Duration: 30 day, Stop date: 08/02/14 9:00:00 Start Date: 07/03/14 Stop Date: 07/07/14 Status: DiscontinuedRocephin 1 gm, Route: IVPB, Drug form: PDR/INJ, [id number], Dosing Weight 83, kg, Start date : 07/05/14 8:00:00, Duration: 30 day, Stop date: 08/03/14 8:00:00 Notes: Use with 100ml NS mini-bag PLUS and infuse over 30 min Start Date: 07/05/14 Stop Date: 07/06/14 Status: DiscontinuedSaline Flush 0.9% 10 mL, Route: IVP, Drug Form: INJ, kg, PRN, PRN Line Flush, Start date: 21:34:00, Duration:30 day, Stop date: 08/01/14 20:33:00 Notes: (Same as: BD Posiflush) Start Date: 07/02/14 Stop Date: 07/03/14 Status: DiscontinuedSaline Flush 0.9% 10 ml, Route: IVP, Drug Form: INJ, Dosing Weight 79.545, kg, Q12H, Start date: 07/03/14 9:00:00, Duration: 30 day, Stop date: 08/01/14 21:00:00 Notes: (Same as: BD Posiflush) Start Date: 07/03/14 Stop Date: 07/07/14 Status: DiscontinuedSaline Flush 0.9% 10 ml, Route: IVP, Drug Form: INJ, Dosing Weight 79.545, kg, PRN, PRN Line Flush , Start date: 07/02/14 22:10:00, Duration: 30 day, Stop date: 08/01/14 21:09:00 Notes: (Same as: BD Posiflush) Start Date: 07/02/14 Stop Date: 07/07/14 Status: Discontinuedsenna 8.6 mg, 1 tab, Route: PO, Drug Form: TAB, Dosing Weight 83, kg, BID, Start date : 07/03/14 17:00:00, Duration: 30 day, Stop date: 08/02/14 9:00:00 Notes: (Same as: Senokot) Start Date: 07/03/14 Stop Date: 07/07/14 Status: DiscontinuedSodium Chloride 0.9% IV 1,000 mL 1,000 mL, Rate: 75 ml/hr, Infuse over: 13.3 hr, Route: IV, Dosing Weight 79.545 kg, Total Volume: 1,000, Start date: 07/02/14 22:10:00, Duration: 30 day, Stop date: 08/01/14 22:09:00 Start Date: 07/02/14 Stop Date: 07/03/14 Status: DiscontinuedSodium Chloride 0.9% IV 1,000 mL 1,000 mL, Rate: 75 ml/hr, Infuse over: 13.3 hr, Route: IV, Dosing Weight 83 kg, Total Volume: 1,000,Start date: 07/03/14 16:25:00, Duration: 12 hr, Stop date: 07/04/14 4:24:00 Start Date: 07/03/14 Stop Date: 07/04/14 Status: CompletedSodium Chloride 0.9% IV 250 mL 250 mL, Rate: 999 ml/hr, Infuse over: 0.3 hr, Route: IV, Dosing Weight 83 kg, Total Volume: 250, Start date: 07/04/14 14:45:00, Duration: 1 doses or times, Stop date: 07/04/14 15:02:00 Start Date: 07/04/14 Stop Date: 07/04/14 Status: CompletedSodium Chloride 0.9% IV 500 mL 500 mL, Rate: 999 ml/hr, Infuse over: 0.5 hr, Route: IV, Dosing Weight 83 kg, Total Volume: 500, Start date: 07/04/14 14:44:00, Duration: 1 doses or times, Stop date: 07/04/14 15:13:00 Start Date: 07/04/14 Stop Date: 07/04/14 Status: Completedthiamine 100 mg, 1 tab, Route: PO, Drug form: TAB, Daily, Dosing Weight 83, kg, Start date: 07/03/14 12:00:00, Duration: 30 day, Stop date: 08/02/14 9:00:00 Notes: (Same As: Vitamin B1) Start Date: 07/03/14 Stop Date: 07/07/14 Status: DiscontinuedVisipaque 320mg/ml 125 mL, Route: IVP, Drug Form: SOLN, Dosing Weight 79.545, kg, ONCALL, STAT, Start date: 07/02/14 21:53:00, Duration: 1 doses or times, Dose=2.2ml/kg, Max [id number] -- "To be infused by Radiology Staff ONLY" Special Instructions: Dose=2.2ml/kg, Max jisw=[id number] -- "To be infused by Radiology Staff ONLY" Start Date: 07/02/14 Stop Date: 07/02/14 Status: Completedwarfarin 5 mg, 1 tab, Route: PO, Drug form: TAB, Q5PM, Dosing Weight 83, kg, Start date: 07/06/14 17:00:00, Duration: 1 doses or times, Stop date: 07/06/14 17:00:00 Notes: Nurse to ensure documentation of patient education per anticoagulation policy.Avoid large intake of vitamin-K containing foods diet.(Same As: Coumadin) Start Date: 07/06/14 Stop Date: 07/06/14 Status: Completedwarfarin 7.5 mg, 1 tab, Route: PO, Drug form: TAB, Q5PM, Dosing Weight 83, kg, Start date : 07/07/14 17:00:00,Duration: 1 doses or times, Stop date: 07/07/14 17:00:00 Notes: Nurse to ensure documentation of patient education per anticoagulation policy.Avoid large intake of vitamin-K containing foods diet.(Same As: Coumadin) Start Date: 07/07/14 Stop Date: 07/07/14 Status: Completedwarfarin 7.5 mg oral tablet 7.5 mg, PO, Q5PM, # 5 tab, 0 Refill(s) Start Date: 07/07/14 Status: OrderedZofran 4 mg, Route: IVP, Drug form: INJ, ONCE, Dosing Weight 79.545, kg, Priority: STAT , Start date: 07/02/14 21:54:00, Stop date: 07/02/14 21:54:00 Start Date: 07/02/14 Stop Date: 07/02/14 Status: CompletedZofran 4 mg, 2 mL, Route: IVP, Drug form: INJ, Q8H, Dosing Weight 79.545, kg, PRN as needed for nausea/vomiting, Priority: STAT, Start date: 07/02/14 21:57:00, Duration: 30 day, Stop date: 08/01/14 21:56:00 Notes: (Same as: Zofran) Start Date: 07/02/14 Stop Date: 07/07/14 Status: DiscontinuedZyPREXA 2.5 mg, 1 tab, Route: PO, Drug form: TAB, Bedtime, Start date: 07/04/14 21:00:00 , Duration: 1 doses or times, Stop date: 07/04/14 21:00:00 Notes: (Same as: ZyPREXA) Start Date: 07/04/14 Stop Date: 07/04/14 Status: CompletedZyPREXA 2.5 mg, 1 tab, Route: PO, Drug form: TAB, Q6H, PRN Agitation, Start date: 17:08:00, Duration: 30 day, Stop date: 08/03/14 17:07:00 Notes: (Same as: ZyPREXA) Start Date: 07/04/14 Stop Date: 07/07/14 Status: Discontinued Results BLOOD BANK RESULTS Most recent to oldest [Reference Range]: 1 2 3 ABO/Rh O POS *Unknown* (07/02/14 11:20 PM) Antibody Scrn Negative (07/02/14 11:20 PM) ELECTROLYTES Most recent to oldest 1 2 3 [Reference Range]: Sodium Lvl [135-145 mEq/L] 142 mEq/L 145 mEq/L 144 mEq/L (07/07/14 1:00 AM) (07/05/14 1:00 AM) (07/04/14 2:45 AM) Potassium Lvl [3.5-5.1 4.5 mEq/L 4.5 mEq/L 4.5 mEq/L mEq/L] (07/07/14 1:00 AM) (07/05/14 1:00 AM) (07/04/14 2:45 AM) Chloride Lvl [95-109 mEq/L] 110 mEq/L 112 mEq/L 113 mEq/L *HI* *HI* *HI* (07/07/14 1:00 AM) (07/05/14 1:00 AM) (07/04/14 2:45 AM) CO2 [24-32 mEq/L] 22 mEq/L 25 mEq/L 24 mEq/L *LOW* (07/05/14 1:00 AM) (07/04/14 2:45 AM) (07/07/14 1:00 AM) AGAP [10.0-20.0 mEq/L] 14.5 mEq/L 12.5 mEq/L 11.5 mEq/L (07/07/14 1:00 AM) (07/05/14 1:00 AM) (07/04/14 2:45 AM) CHEM PANEL Most recent to oldest 1 2 3 [Reference Range]: Creatinine Lvl [0.5-1.4 1.0 mg/dL 0.8 mg/dL 0.9 mg/dL mg/dL] (07/07/14 1:00 AM) (07/05/14 1:00 AM) (07/04/14 2:45 AM) eGFR 58 mL/min/1.73m2 1 76 mL/min/1.73m2 2 66 mL/min/1.73m2 3 *NA* *NA* *NA* (07/07/14 1:00 AM) (07/05/14 1:00 AM) (07/04/14 2:45 AM) BUN [7-22 mg/dL] 23 mg/dL 15 mg/dL 12 mg/dL *HI* (07/05/14 1:00 AM) (07/04/14 2:45 AM) (07/07/14 1:00 AM) Glucose Lvl [70-99 mg/dL] 97 mg/dL 4 89 mg/dL 5 107 mg/dL 6 (07/07/14 1:00 AM) (07/05/14 1:00 AM) *HI* (07/04/14 2:45 AM) POC Creatinine [0.5-1.4 1.2 mg/dL mg/dL] (07/02/14 9:34 PM) Total Protein [6.4-8.4 5.7 g/dL 5.6 g/dL g/dL] *LOW* *LOW* (07/04/14 5:40 PM) (07/03/14 3:11 AM) Albumin Lvl [3.5-5.0 g/dL] 3.2 g/dL 3.0 g/dL *LOW* *LOW* (07/04/14 5:40 PM) (07/03/14 3:11 AM) Globulin [2.0-4.0 g/dL] 2.5 g/dL 2.6 g/dL (07/04/14 5:40 PM) (07/03/14 3:11 AM) A/G Ratio [0.7-1.6] 1.3 1.2 (07/04/14 5:40 PM) (07/03/14 3:11 AM) Calcium Lvl [8.5-10.5 8.6 mg/dL 8.3 mg/dL 8.3 mg/dL mg/dL] (07/07/14 1:00 AM) *LOW* *LOW* (07/05/14 1:00 AM) (07/04/14 2:45 AM) Phosphorus [2.5-4.5 mg/dL] 3.7 mg/dL 3.3 mg/dL 2.8 mg/dL (07/05/14 1:00 AM) (07/04/14 2:45 AM) (07/03/14 3:11 AM) Magnesium Lvl [1.8-2.4 1.6 mg/dL 1.8 mg/dL 1.7 mg/dL mg/dL] *LOW* (07/04/14 2:45 AM) *LOW* (07/05/14 1:00 AM) (07/03/14 3:11 AM) ALT [0-65 unit/L] 21 unit/L 26 unit/L (07/04/14 5:40 PM) (07/03/14 3:11 AM) AST [0-37 unit/L] 16 unit/L 18 unit/L (07/04/14 5:40 PM) (07/03/14 3:11 AM) Alk Phos [39-136 unit/L] 61 unit/L 66 unit/L (07/04/14 5:40 PM) (07/03/14 3:11 AM) Bili Total [0.2-1.3 mg/dL] 0.4 mg/dL 0.2 mg/dL (07/04/14 5:40 PM) (07/03/14 3:11 AM) Bili Direct [0.0-0.3 mg/dL] 0.1 mg/dL 0.1 mg/dL (07/04/14 5:40 PM) (07/03/14 3:11 AM) Bili Indirect [0.0-1.0 0.3 mg/dL 0.1 mg/dL mg/dL] (07/04/14 5:40 PM) (07/03/14 3:11 AM) Lactic Acid Lvl [0.5-2.2 1.0 mMol/L mMol/L] (07/04/14 5:40 PM) 1Result Comment: The eGFR is calculated using the CKD-EPI formula. In most young , healthy individualsthe eGFR will be >90 mL/min/1.73m2. The eGFR declines with age. An eGFR of 60-89 may be normal in some populations, particularly the elderly, for whom the CKD-EPI formula has not been extensively validated. Use of the eGFR is not recommended in the following populations: Individuals with unstable creatinine concentrations, including patients and those with serious co-morbid conditions. Patients with extremes in muscle mass or diet. The data above are obtained from the National Kid[employer] Disease Education Program ( [employer]) which additionally recommends that when the eGFR is used in patients with extremes of body mass index for purposesof drug dosing, the eGFR should be multiplied by the estimated BMI.2Result Comment: The eGFR is calculated using the CKD-EPI formula. In most young, healthy individualsthe eGFR will be >90 mL/ min/1.73m2. The eGFR declines with age. An eGFR of 60-89 may be normal in some populations, particularly the elderly, for whom the CKD-EPI formula has not been extensively validated. Use of the eGFR is not recommended in the following populations: Individuals with unstable creatinine concentrations, including patients and those with serious co-morbid conditions. Patients with extremes in muscle mass or diet. The data above are obtained from the National Kid[employer] Education Program ( [employer]) which additionally recommends that when the eGFR is used in patients with extremes of body mass index for purposesof drug dosing, the eGFR should be multiplied by the estimated BMI.3Result Comment: The eGFR is calculated using the CKD-EPI formula. In most young, healthy individualsthe eGFR will be >90 mL/ min/1.73m2. The eGFR declines with age. An eGFR of 60-89 may be normal in some populations, particularly the elderly, for whom the CKD-EPI formula has not been extensively validated. Use of the eGFR is not recommended in the following populations: Individuals with unstable creatinine concentrations, including patients and those with serious co-morbid conditions. Patients with extremes in muscle mass or diet. The data above are obtained from the National Kid[employer] Disease Education Program ( [employer]) which additionally recommends that when the eGFR is used in patients with extremes of body mass index for purposesof drug dosing, the eGFR should be multiplied by the estimated BMI.4Interpretive Data: Adult reference range values reflect the clinical guidelines of the [place] [employer].5Interpretive Data: Adult reference range values reflect the clinical guidelines of the [place] [employer].6Interpretive Data: Adult reference range values reflect the clinical guidelines of the [place] [employer].CARDIAC ENZYMES Most recent to oldest 1 2 3 [Reference Range]: Total CK [12-191 unit/L] 123 unit/L 51 unit/L 59 unit/L (07/05/14 4:20 PM) (07/03/14 3:11 AM) (07/02/14 10:15 PM) CK MB [0.5-3.6 ng/mL] 1.2 ng/mL 0.7 ng/mL (07/05/14 4:20 PM) (07/02/14 10:15 PM) CK MB Index [0.0-2.5] 1.0 1.2 (07/05/14 4:20 PM) (07/02/14 10:15 PM) Troponin-T [0.000-0.100 <0.010 ng/mL 0.031 ng/mL ng/mL] (07/05/14 4:20 PM) (07/03/14 1:10 AM) Troponin-I [0.00-0.40 0.02 ng/mL <0.02 ng/mL <0.02 ng/mL ng/mL] (07/05/14 4:20 PM) (07/03/14 3:11 AM) (07/02/14 10:15 PM) LIPIDS Most recent to oldest [Reference Range]: 1 2 3 CHD Risk [3.90-5.80] 1.95 *LOW* (07/03/14 10:50 AM) Chol [<=199 mg/dL] 164 mg/dL (07/03/14 10:50 AM) Trig [<=149 mg/dL] 42 mg/dL (07/03/14 10:50 AM) HDL [>=61 mg/dL] 84 mg/dL 7 (07/03/14 10:50 AM) LDL (Calculated) [<=99 mg/dL] 72 mg/dL (07/03/14 10:50 AM) VLDL 8 *NA* (07/03/14 10:50 AM) 7Result Comment: Specimen Slightly Hemolyzed.SPECIAL CHEMISTRY Most recent to oldest [Reference Range]: 1 2 3 Hgb A1C [<=5.6 %] 4.9 % (07/03/14 10:50 AM) ANEMIA STUDY Most recent to oldest [Reference Range]: 1 2 3 Iron [30-160 ug/dl] 52 ug/dl (07/06/14 2:30 AM) % Satur Fe [12-57 %] 18 % (07/06/14 2:30 AM) UIBC [110-370 ug/dl] 245 ug/dl (07/06/14 2:30 AM) Vitamin B12 Lvl [254-1320 pg/mL] 908 pg/mL (07/06/14 2:30 AM) Folate Lvl [>=3.0 ng/mL] 14.3 ng/mL (07/06/14 2:30 AM) TIBC [228-428 ug/dl] 297 ug/dl (07/06/14 2:30 AM) Transferrin [212-360 mg/dL] 227 mg/dL (07/06/14 2:30 AM) PARATHYROID PROFILE Most recent to oldest [Reference Range]: 1 2 3 Ca Ion WB [1.05-1.25 mMol/L] 1.06 mMol/L 1.04 mMol/L (07/04/14 2:45 AM) *LOW* (07/03/14 3:11 AM) Ca Norm WB [1.05-1.25 mMol/L] 1.06 mMol/L 1.01 mMol/L (07/04/14 2:45 AM) *LOW* (07/03/14 3:11 AM) DRUG SCREEN Most recent to oldest [Reference Range]: 1 2 3 U Amph Scr [Negative] Negative Negative *NA* *NA* (07/04/14 7:50 PM) (07/03/14 10:50 AM) U Shauna Scr [Negative] Negative Negative *NA* *NA* (07/04/14 7:50 PM) (07/03/14 10:50 AM) U Benzodia Scr [Negative] Positive Negative *ABN* *NA* (07/04/14 7:50 PM) (07/03/14 10:50 AM) U Cocaine Scr [Negative] Negative Negative *NA* *NA* (07/04/14 7:50 PM) (07/03/14 10:50 AM) U Opiate Scr [Negative] Negative Negative *NA* *NA* (07/04/14 7:50 PM) (07/03/14 10:50 AM) U Phencyc Scr [Negative] Negative Negative *NA* *NA* (07/04/14 7:50 PM) (07/03/14 10:50 AM) U Cannab Scr [Negative] Negative Negative *NA* *NA* (07/04/14 7:50 PM) (07/03/14 10:50 AM) UDS Note See Note 8 See Note 9 (07/04/14 7:50 PM) *NA* (07/03/14 10:50 AM) 8Interpretive Data: Drugs reported as positive have not been confirmed by a second method and should be used for medical purposes only. To order confirmation, contact laboratory. note: Below are cut-off concentrations for all urine drugs of abuse performed in the laboratory. Some drugs listed in the table may not be included in this panel. Description Cut-off concentration Amphetamine 1000 ng/mL Barbiturates 200 ng/mL Benzodiazepines 300 ng/mL Cocaine metabolites 300 ng/mL Opiates 300 ng/mL Phencyclidine 25 ng/mL Propoxyphene 300 ng/mL Marijuana metabolites 50 ng/mL Methadone 300 ng/mL Urine alcohol 20 mg/[id number] Data: Drugs reported as positive have not been confirmed by a second method and should be used for medical purposes only. To order confirmation, contact laboratory. note: Below are cut-off concentrations for all urine drugs of abuse performed in the laboratory. Some drugs listed in the table may not be included in this panel. Description Cut-off concentration Amphetamine 1000 ng/mL Barbiturates 200 ng/mL Benzodiazepines 300 ng/mL Cocaine metabolites 300 ng/mL Opiates 300 ng/mL Phencyclidine 25 ng/mL Propoxyphene 300 ng/mL Marijuana metabolites 50 ng/mL Methadone 300 ng/mL Urine alcohol 20 mg/dLURINE AND STOOL Most recent to oldest [Reference Range]: 1 2 3 UA Turbidity [Clear] Clear Slight (07/04/14 7:50 PM) *ABN* (07/03/14 10:50 AM) UA Color [Yellow] Yellow Light Yellow *NA* *NA* (07/04/14 7:50 PM) (07/03/14 10:50 AM) UA pH [5.0-8.0] 5.0 5.0 (07/04/14 7:50 PM) (07/03/14 10:50 AM) UA Spec Grav [<=1.030] 1.010 1.007 (07/04/14 7:50 PM) (07/03/14 10:50 AM) UA Glucose [Negative mg/dL] Negative mg/dL Negative mg/dL *NA* *NA* (07/04/14 7:50 PM) (07/03/14 10:50 AM) UA Blood [Negative] Negative Negative (07/04/14 7:50 PM) (07/03/14 10:50 AM) UA Ketones [Negative mg/dL] Negative mg/dL Negative mg/dL *NA* *NA* (07/04/14 7:50 PM) (07/03/14 10:50 AM) UA Protein [Negative mg/dL] Negative mg/dL Negative mg/dL (07/04/14 7:50 PM) (07/03/14 10:50 AM) UA Urobilinogen [0.1-1.0 mg/dL] <=1.0 mg/dL <=1.0 mg/dL *NA* *NA* (07/04/14 7:50 PM) (07/03/14 10:50 AM) UA Bili [Negative] Negative Negative *NA* *NA* (07/04/14 7:50 PM) (07/03/14 10:50 AM) UA Leuk Est [Negative] Moderate Negative *ABN* (07/03/14 10:50 AM) (07/04/14 7:50 PM) UA Nitrite [Negative] Negative Negative (07/04/14 7:50 PM) (07/03/14 10:50 AM) UA WBC [0-5 /HPF] 9 /HPF 4 /HPF *HI* (07/03/14 10:50 AM) (07/04/14 7:50 PM) UA RBC [0-2 /HPF] 1 /HPF 2 /HPF (07/04/14 7:50 PM) (07/03/14 10:50 AM) UA Bacteria [None Seen /HPF] Occasional /HPF *NA* (07/03/14 10:50 AM) UA Sq Epi [Few /LPF] Few /LPF Occasional /LPF *NA* *NA* (07/04/14 7:50 PM) (07/03/14 10:50 AM) UA Hyal Cast [0-2 /LPF] 1 /LPF (07/04/14 7:50 PM) UA Amorph Christin [None Seen /HPF] Occasional /HPF *NA* (07/03/14 10:50 AM) UA Mucus [None Seen /LPF] Few /LPF Few /LPF *NA* *NA* (07/04/14 7:50 PM) (07/03/14 10:50 AM) Occult Bld Stl [Negative] Negative (07/07/14 3:42 PM) HEMATOLOGY Most recent to oldest 1 2 3 [Reference Range]: WBC [3.7-10.4 K/CMM] 12.1 K/CMM 10.6 K/CMM 9.1 K/CMM *HI* *HI* (07/05/14 4:20 PM) (07/07/14 1:00 AM) (07/06/14 2:30 AM) RBC [4.20-5.40 M/CMM] 3.59 M/CMM 3.78 M/CMM 3.13 M/CMM *LOW* *LOW* *LOW* (07/07/14 1:00 AM) (07/06/14 2:30 AM) (07/05/14 4:20 PM) Hgb [12.0-16.0 g/dL] 11.5 g/dL 12.1 g/dL 10.1 g/dL *LOW* (07/06/14 2:30 AM) *LOW* (07/07/14 1:00 AM) (07/05/14 4:20 PM) Hct [36.0-48.0 %] 36.0 % 37.0 % 30.7 % (07/07/14 1:00 AM) (07/06/14 2:30 AM) *LOW* (07/05/14 4:20 PM) MCV [80.0-98.0 fL] 100.3 fL 97.8 fL 98.0 fL *HI* (07/06/14 2:30 AM) (07/05/14 4:20 PM) (07/07/14 1:00 AM) MCH [27.0-31.0 pg] 32.0 pg 32.1 pg 32.3 pg *HI* *HI* *HI* (07/07/14 1:00 AM) (07/06/14 2:30 AM) (07/05/14 4:20 PM) MCHC [32.0-36.0 g/dL] 31.9 g/dL 32.8 g/dL 33.0 g/dL *LOW* (07/06/14 2:30 AM) (07/05/14 4:20 PM) (07/07/14 1:00 AM) RDW [11.5-14.5 %] 13.8 % 13.9 % 14.0 % (07/07/14 1:00 AM) (07/06/14 2:30 AM) (07/05/14 4:20 PM) Platelet [133-450 K/CMM] 175 K/CMM 167 K/CMM 142 K/CMM (07/07/14 1:00 AM) (07/06/14 2:30 AM) (07/05/14 4:20 PM) MPV [7.4-10.4 fL] 11.4 fL 12.2 fL 12.1 fL *HI* *HI* *HI* (07/07/14 1:00 AM) (07/06/14 2:30 AM) (07/05/14 4:20 PM) Segs [45.0-75.0 %] 48.6 % 49.6 % 58.2 % (07/07/14 1:00 AM) (07/06/14 2:30 AM) (07/05/14 4:20 PM) Lymphocytes [20.0-40.0 %] 32.6 % 31.6 % 23.2 % (07/07/14 1:00 AM) (07/06/14 2:30 AM) (07/05/14 4:20 PM) Monocytes [2.0-12.0 %] 14.9 % 15.2 % 15.5 % *HI* *HI* *HI* (07/07/14 1:00 AM) (07/06/14 2:30 AM) (07/05/14 4:20 PM) Eosinophils [0.0-4.0 %] 3.5 % 3.2 % 2.4 % (07/07/14 1:00 AM) (07/06/14 2:30 AM) (07/05/14 4:20 PM) Basophils [0.0-1.0 %] 0.4 % 0.4 % 0.7 % (07/07/14 1:00 AM) (07/06/14 2:30 AM) (07/05/14 4:20 PM) Segs-Bands # [1.5-8.1 5.9 K/CMM 5.3 K/CMM 5.3 K/CMM K/CMM] (07/07/14 1:00 AM) (07/06/14 2:30 AM) (07/05/14 4:20 PM) Lymphocytes # [1.0-5.5 3.9 K/CMM 3.4 K/CMM 2.1 K/CMM K/CMM] (07/07/14 1:00 AM) (07/06/14 2:30 AM) (07/05/14 4:20 PM) Monocytes # [0.0-0.8 1.8 K/CMM 1.6 K/CMM 1.4 K/CMM K/CMM] *HI* *HI* *HI* (07/07/14 1:00 AM) (07/06/14 2:30 AM) (07/05/14 4:20 PM) Eosinophils # [0.0-0.5 0.4 K/CMM 0.3 K/CMM 0.2 K/CMM K/CMM] (07/07/14 1:00 AM) (07/06/14 2:30 AM) (07/05/14 4:20 PM) Basophils # [0.0-0.2 0.1 K/CMM 0.1 K/CMM 0.0 K/CMM K/CMM] (07/05/14 4:20 PM) (07/05/14 10:35 AM) (07/02/14 10:15 PM) RBC Morph Normal Normal (07/06/14 2:30 AM) (07/02/14 10:15 PM) Macrocyte [None Seen] 1+ *ABN* (07/07/14 1:00 AM) Plt Morph Normal Normal (07/06/14 2:30 AM) (07/02/14 10:15 PM) PT [12.0-14.7 seconds] 12.7 seconds 13.9 seconds 14.7 seconds (07/07/14 1:00 AM) (07/06/14 7:14 PM) (07/04/14 2:45 AM) INR [0.85-1.17] 0.95 10 1.07 11 1.14 12 (07/07/14 1:00 AM) (07/06/14 7:14 PM) (07/04/14 2:45 AM) PTT [22.9-35.8 seconds] 35.0 seconds 13 26.0 seconds 14 28.0 seconds 15 (07/06/14 7:14 PM) (07/04/14 2:45 AM) (07/03/14 3:11 AM) 10Interpretive Data: RECOMMENDED RANGES FOR PROTIME INR: 2.0-3.0 for most medical and surgical thromboembolic states. 2.5-3.5 for artificial heart valves and recurrent embolism. INR SHOULD BE USED ONLY FOR PATIENTS ON STABLE ANTICOAGULANT THERAPY.11Interpretive Data: RECOMMENDED RANGES FOR PROTIME INR: 2.0-3.0 for most medical and surgical thromboembolic states. 2.5-3.5 for artificial heart valves and recurrent embolism. INR SHOULD BE USED ONLY FOR PATIENTS ON STABLE ANTICOAGULANT THERAPY.12Interpretive Data: RECOMMENDED RANGES FOR PROTIME INR: 2.0-3.0 for most medical and surgical thromboembolic states. 2.5-3.5 for artificial heart valves and recurrent embolism. INR SHOULD BE USED ONLY FOR PATIENTS ON STABLE ANTICOAGULANT THERAPY.13Interpretive Data: Heparin Therapeutic Range: 57 - 92 [id number] Data: Heparin Therapeutic Range: 57 - 92 [id number] Data: Heparin Therapeutic Range: 57 - 92 SecondsBACTERIAL - SEROLOGY Most recent to oldest [Reference Range]: 1 2 3 MRSA by PCR Negative 16 (07/03/14 3:11 AM) 16Interpretive Data: Interpretive Data: The Kerri LightCycler MRSA assay is a qualitative test for thedirect detection of nasal colonization with methicillin- resistant Staphylococcus aureus (MRSA) to aid in the prevention and control of MRSA infections in healthcare settings. A positive result does notindicate an infection or require treatment. A negative result does not exclude colonization or infection. The polymerase chain reaction (PCR) assay detects a proprietary sequence indicative of the integration of the SCCmec cassette into the Staphylococcus aureus chromosome, indicating the presence of MRSA DNA. The assay utilizes FDA cleared IVD reagents. Performance characteristics have been verified by the [facility] within the [facility] [place]. The [facility] Laboratory is authorized under the Clinical Laboratory Improvement Amendment of 1988 (CLIA-88) to performhigh complexity testing. Medications Administered During Your Visit No data available for this section Immunizations Vaccine Date Refusal Reason influenza virus vaccine, inactivated 07/04/14 pneumococcal 23-valent vaccine 07/04/14 Procedures Procedure Type Body Site Date of Procedure Related Diagnosis Splenectomy Social History Social History Type Response Substance Abuse Use: None Alcohol Use: Current, Type: Wine, Frequency: Daily Smoking Status Former smoker, Type: Cigarettes, Exposure to Tobacco Smoke None , Cigarette Smoking Last 365 Days No, Reg Smoking Cessation Counseling No Assessment and Plan Extracted from: Title: Progress Note * Author: Yousif Arrieta MD Date: 07/07/14 Impression and Plan Hypotension: - resolved UTI: - Cultures growing enterococcus, but not in signifcant range - pt does not have any symptoms, no fever, WBC slightly elevated but no left shift and hence no antibiotics for now Acute stroke: - on ASA to coumadin bridge & statin multifocal bruising: - s/p fall and tPA - stable Anemia: - acute, frm bruising - Hb stable Alcohol abuse: - counselled - on thiamine Atrial fibrillation: - paroxysmal - Rate controlled without meds - ASA to coumadin bridge DVT prophylaxis, on heparin sub q. DISPO: [place] in patient rehab [facility] hospitalist is consult. Pager [phone] Extracted from: Title: Clinical Document Author: Nidhi Muñiz DO Date: 07/05/14 Neurorehabilitation Consult Requesting Physician: Dr. Guzmán Consulting Physician: Dr. Muñiz Reason: Evaluate for acute inpatient rehab program Chief Complaint: fall, headache, word salad 68 yo LH F grocery shopping, fell backwards, caught by bystanders, did not hit head or lose consciousness, brought her home. Developed migraine headache, l visual disturbance, and near fall again, called 911, admit [facility] 07/02/14 L humerus/forearm x-rays negative for fracture, EKG A -fib, diagnosed R MCA/cement [address] /cerebellar infarct s/p iv tpa, cta showed R M1 occlusion and R distal [address] occlusion s/p thrombectomy with recanalization o f RM1. Course c/b change in mental status -?UTI, ucx, negative, treated with ceftriaxone and hypotension for which medicine service is evaluating patient. Pt reports improving left sided strength. Pt is nervous, but not agitated. evaluated by psychiatry, recommended for zyprexa prn ROS: denies fever/chills/suggs/cp/sob/n/v/d/new numbness or new weakness. states her vision in left eye is not as clear as right eye - started during headache prior to admit PMHX: migraine PSHX: splenectomy ALLERGIES: sulfa CURRENT MEDS: Scheduled Meds (10): 07/03/14 aspirin (aspirin 325 mg tablet) 325 mg PO Daily 07/03/14 atorvastatin 20 mg PO Bedtime 07/05/14 cefTRIAXone (Rocephin) 1 gm IVPB [id number] 07/03/14 docusate 100 mg PO Q12H 07/04/14 folic acid (folic acid 1 mg oral tablet) 1 mg PO Daily 07/04/14 heparin 5,000 unit SUB-Q Q8H 07/03/14 multivitamin, ( Multivitamins with Folic Acid 0.8 mg oral tablet) 1 tab PO Daily 07/03/14 senna 8.6 mg PO BID 07/03/14 sodium chloride (Saline Flush 0.9%) 10 ml IVP Q12H 07/03/14 thiamine 100 mg PO Daily Unscheduled Meds: None PRN Meds (7): 07/04/14 OLANZapine (ZyPREXA) 2.5 mg PO Q6H 07/02/14 acetaminophen 650 mg PO Q4H 07/02/14 bisacodyl 10 mg IN Daily 07/02/14 enalapril 0.625 mg IVP Q6H 07/02/14 labetalol 10 mg IVP Q10Min 07/02/14 ondansetron (Zofran) 4 mg IVP Q8H 07/02/14 sodium chloride (Saline Flush 0.9%) 10 ml IVP PRN One Time Meds (1): 07/05/14 (Completed) magnesium sulfate 2 gm IVPB ONCE 25 ml/hr Continuous Infusions (1): 07/05/14 Lactated Ringers Injection IV 1,000 mL (Lactated Ringers IV 1,000 mL) 1,000 mL 100 ml/hr FAMILY HX: no history of stroke SOCIAL HX: lives with , 1st floor set up, + 24 hour supervision. no tob /etoh/ivda FUNCTIONAL HX: independent with adls/ambulation, no AD VS Vitals Tmp(F) Tmp(C) Ttype BP MAP Pulse RR SpO2 FIO2 ETCO2 07/05 13:00 ---- ---- ---- 115/64 87 74 25 --- --- --- 07/05 12:57 ---- ---- ---- ----- --- 72 16 --- --- --- 07/05 12:28 98.7 37.06 axil ----- --- --- -- --- --- --- 07/05 12:00 ---- ---- ---- 155/70 100 --- -- 98 --- --- 07/05 11:00 ---- ---- ---- 146/80 103 80 -- 84 --- --- GEN: awake, alert, nad HEENT: ncat, no carotid bruits, no lymphadenopathy LUNGS: cta b/l, no rales, no ronchi CV: rrr +S1 +s2, no murmurs ABD: +bs, nt/nd, no organomegaly EXT: no edema,negative qamar's sign : no ahuja NEURO: eomi, visual field intact, no facial weakness Right: 5/5 delt/biceps/triceps/we/ff/hf/ke/f/pf Left: 4+/5 delt/biceps/triceps/we/ff 3/5 hf/ke/df/pf L>R dysmetria sensation intact bilaterally 07/03 LAMAR:normal LVEF, LA mildly dilated, no thrombus, no shunt 07/03 CTA: 1. Segmental occlusion of the right middle cerebral artery, M1 segment with collateralization to the right M2 and M3 segments distally. 2. Occlusion of the distal right posterior cerebral artery, P3 branches. 3. Acute ischemia of the right middle cerebral artery territory, and right occipital lobe, posterior cerebral artery territory. 4. 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 07/02 HCT: 2. Acute right middle cerebral artery territory infarct involving the anterior insula. 3. Acute right SEARCH MARKETING SPECIALIST territory infarct. 4. Infarct of the inferior right cerebellar hemisphere possibly acute as well. MR with diffusion weighting may be helpful for determination of the age of all the infarcts. 07/05 wbc 9 hgb 11 hct 34 platelet 168 07/05 na 145 k 4.5 bun 15 creat 0.8 glucose 89 ca 8 mag 1.6 phos 3.7 07/04 UA: mod le (-) nitrite, few squamous 07/04 ast 16 alt 21 bili T 0.4 ap 61 ASSESSMENT:68 yo LH F admit [facility] 07/02/14 diagnosed R MCA/ce[address]/cerebellar infarct with functional deficits of subjectively decreased vision L eye, L leg> L arm weakness, L>R dysmetria. RECOMMEND: Neurorehabilitation PT/OT/ST. cleared for regular diet with thin liquids. Medical R MCA/SEARCH MARKETING SPECIALIST/R cerebellar hemisphere infarct s/p iv tpa and thrombectomy: etiology likely cardioembolic per stroke team, asa/statin for secondary stroke prevention for now A fib: rate controlled ? UTI: ucx negative, consider dc ceftriaxone s/p fall: no pain, x-rays forearm/humerus negative for fracture agitation: zyprexa prn : check pvrs every 4 hours, straight cath if >250cc Prophylaxis DVT Proph: SQH GI Proph: docusate Skin: frequent position changes every 4-6 hours to prevent ulcers Disposition Based on current functional status, pt will benefit from acute inpatient rehabilitation program when medically ready - prefers rehab near home. Appreciate Consult. Extracted from: Title: Clinical Document Author: Klaus Holly MD Date: 07/02/14 STROKE TEAM / NEUROLOGY - HISTORY AND PHYSICAL Attending of Record: Dr. 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 Per EMS, BP 130/76, HR 76 irregular and EKG showed new atrial fibrillation (no history). POC glucose was 74 en route. She has a history of recent aspirin use (which she takes PRN) but no blood thinners. No recent surgeries, bleeding, or trauma. She received IV TPA at 21:48, 7.2mg bolus followed by 64.4mg infusion over 1 hour. She was taken to [place] for Solitaire thrombectomy, recanalized solitaire x1 at 12:15am. REVIEW OF SYSTEMS: GEN: no fever, chills, weight loss, fatigue EYES: no blurred vision, double vision CARDIO: no chest pain, palpitations PULM: no shortness of breath, cough GI: no nausea, vomiting, diarrhea, no abd pain : no frequency, dysuria, hematuria NEURO: see HPI SKIN: no rash or lesion MSK: no pain, swelling, redness, heat in muscles, no limited ROM, weakness, or atrophy, no cramps LYMPH/IMMUNO: No lymph node enlargement/tenderness, no heat/cold intolerance PAST MEDICAL HISTORY: as above PAST SURGICAL HISTORY: splenectomy FAMILY MEDICAL HISTORY: noncontributory SOCIAL HISTORY: Lives with MEDICATIONS: occasionally takes aspirin ALLERGIES: sulfa drugs PHYSICAL EXAM: Physical Exam: HEAD - Normocephalic and atraumatic LUNGS - Clear to auscultation, no rales or rhonchi CVS - Rate rhythm regular, no murmur, no carotid bruit, equal pulses bilaterally ABDOMEN - Soft, non tender, with normal bowel sounds. No hepatosplenomegaly NEUROLOGY: AAO*3, neglects left side Speech: dysarthric, comprehension intact, repetition and naming intact certified medical dosimetrist: pupils 3mm equal and briskly reactive, left field cut, mild left facial droop, grossly intact hearing bilaterally, equal palatal elevation, full SCM strength bilaterally, tongue midline Motor: RUE and RLE 5/5 2/5 on LUE, 2/5 on LLE Sensory: grossly intact to pain Cerebellar signs: Intact FNT, heel to hernadez on right side Gait: deferred NIH Stroke Scale (NIHSS) 0 1a. Level of Consciousness; 0-alert 1-drowsy 2-stupor 3-comatose 0 1b. LOC Questions month and age; 0-both 1-one 2-neither 0 1c. LOC Commands open/close eyes, cook fruit/release non-paretic hand; 0-both 1- one 2-neither 1 2. Best Gaze; 0-nl 1-partial 2-forced gaze 1 3. Visual Emery; 0-No visual loss. 1-Partial hemianopia 2-Complete 3- Bilateral 2 4. Facial Palsy; 0-none 1-minor 2-partial 3-complete 0 5. Motor - R arm; 0-No drift 1-Drift 2-Some antigravity 3-No antigravity 4-No movement 0 6. Motor - R leg; 0-No drift 1-Drift 2-Some antigravity 3-No antigravity 4-No movement 3 7. Motor - L arm; 0-No drift 1-Drift 2-Some antigravity 3-No antigravity 4-No movement 3 8. Motor - L leg; 0-No drift 1-Drift 2-Some antigravity 3-No antigravity 4-No movement 0 9. Limb Ataxia; 0 absent 1 - 1limb 2 - 2 limbs 0 10. Sensory; 0-nl 1-partial loss 2-dense loss 0 11. Best Language; 0-nl 1-mild/mod 2-severe 3-mute 1 12. Dysarthria; 0-nl 1-mild/mod 2-severe x-untestable 2 13. Extinction and Inattention (formerly Neglect); 0-none 1-partial 2- complete TOTAL SCORE 13 SIGNIFICANT LABS: 24hr Labs 07/020 ABO/Rh O POS Antibody Scrn Negative 07/02 2215 Total CK 59 Troponin-I <0.02 CK MB 0.7 CK MB Index 1.2 WBC 9.7 RBC 4.30 Hgb 13.2 Hct 40.7 MCV 94.6 MCH 30.8 MCHC 32.5 RDW 13.4 Platelet 211 MPV 10.8 H PT 12.8 INR 0.96 Segs 49.4 Monocytes 16.1 H Lymphocytes 31.9 Eosinophils 2.3 Basophils 0.3 Segs-Bands # 4.8 Lymphocytes # 3.1 Monocytes # 1.6 H Eosinophils # 0.2 Basophils # 0.0 RBC Morph Normal Plt Morph Normal PTT 20.0 L 07/02 2134 POC Creatinine 1.2 eGFR 47 07/02 2130 Temp Tr 37.0 pH Tr 7.40 pCO2 Tr 39 pO2 Tr 37 HCO3 Tr 24 BE Tr 0 O2 Sat Tr 70.6 H 07/02 2130 Glucose Lvl 95 BUN 18 Creatinine Lvl 1.0 Sodium Lvl 144 Potassium Lvl 4.5 Chloride Lvl 107 CO2 26 AGAP 15.5 Calcium Lvl 9.0 eGFR 42 DIAGNOSTIC TESTS: CT Head (prelim read): no acute hemorrhage CTA (prelim read): left M1 occlusion ASSESSMENT: 48F with a history of DVT in the right leg 4 years ago, presenting with dysarthria, left sided weakness, left facial droop, last seen normal at 8:15pm, concerning for an acute stroke. CTH showed no hemo rrhage and CTA showed a left M1 occlusion. She received IV TPA at 21:48, 7.2mg bolus followed by 64.4mg infusion over 1 hour. She was taken to [place] for Solitaire thrombectomy, recanalized solitaire x1 at 12:15am. PLAN Admit to ICU. Post IV t-PA care per protocol. Goal BP post-tPA < 180/105. IV NS 75 cc/h Telemetry CXR EKG HOB flat No aspirin or heparin products for 24 hours post-t-PA, per protocol. Atorvastatin 80mg daily has been ordered. MRI brain to evaluate for infarct. TTE to evaluate for cardiac source of embolus. Check fasting lipid panel and HbA1c. Treat fevers and blood sugars aggressively. PT/OT/SAUSAGE MEAT TRIMMER consults - rehab assessments have been ordered. NPO prior to bedside swallow assessment; and escalation of care as determined by nurse DVT prophylaxis with SCDs. THE FOLLOWING WERE PRESENT ON ADMISSION: SILK WEAVER -Hemiparesis or Hemiplegia ACUTE STROKE BENCHMARKS: TIME PATIENT LAST SEEN NORMAL 20:15 CODE STROKE ACTIVATION (CARE4 COMPUTER TIME) approximately 21:25 NEUROLOGY RESIDENT ARRIVAL AT THE BEDSIDE (CARE4 COMPUTER TIME) 21:30 IV TPA BOLUS (TIME AND DOSE) 21:48 7.2mg IV TPA INFUSION (TIME AND DOSE) 21:49 64.4mg DELAYS IN THE CODE STROKE PROCESS none The patient was discussed with Dr. Dominguez, the fellow semiconductor assembler. Klaus Holly MD PGY2 Neurology Resident MSO [phone] Pager [phone] Addendum by Brissa Dominguez MD on 07/03/2014 02:05 Stroke Fellow Addendum Please refer to the resident physician's note above for full details. I have discussed the case with the semiconductor assembler resident and agree with their assessment with the following additions/exceptions: She is a 68yo left handed woman with h/o splenectomy and possible DVT 4 years ago, who presents today with acute onset of a R MCA syndrome, onset 20: 15pm, witnessed by . She had dysarthria, and l eft sided weakness, en route she was noted to be in afib (new dx). On arrival , she was slightly drowsy but oriented and communicative, signifcant left sided spatial, visual, sensory neglect, R gaze pref erence, L facial droop, dysarthria, and a left hemiparesis, NIHSS=14. She was complaining of a headache that started a week ago but now worse. She described it as a "sinus" headache. Head CT showed old R SEARCH MARKETING SPECIALIST territory and R cerebellar infarcts though she denies a h/o strokes. She was oriented, not aphasic, and denied any recent major trauma, though she had some cuts/abrasions from a fall, denied being on any blood thinners but has been taking aspirin for "sinus" headache for the past week. I reviewed the other absolute tPA exclusions with her and explained to her the risks of tPA, specifically hemor rhage which can include intracranial hemorrhage. Given severity of stroke, we would recommend treating and she provided verbal consent. tPA was given at 21 :48. Her CTA showed a right M1 cut off with lar ge perfusional mismatch. Thus, the neuroIR team was also consulted to evaluate for IAT and we were in agreement that she would be a good IAT candidate. tPA infusion was interrupted for worsened/severe h eadache with new nausea but head CT was negative for hemorrhage. During this , her arrived and I was able to consent him for the procedure at around 22:35. She was taken to IR, procedure started 23:38 and angio demonstarted R M1 occlusion and also incidental Acomn aneurysm; recanalization acheived at 00:15 with solitare x 1. She had a transient hypotension with anesthesia induction, and requir ed intermittent pressors during the procedure. Shortely after the procedure, she was awake, talking, following commands, resolved gaze preference, improving neglect. She was also able to lift her left a rm antigravity across her chest. Her leg was not antigravity but she began to have more movement in her toes and now had some withdraw there. I spoke to her and her more to gather a more detaile d history and she has a h/o migraines with visual auras which began only 1 year ago where she sees flashing lights followed by an intense headache. Upon asking specifically about her vision, she describ es a left sided visual field defect since around 4 days ago. This was followed by a headache. Around that time, she also sustained a fall from dizziness at a grocery store, fallng into a shelf with glas s, thus sustaining some of the cuts in her forearm but no fractures. STROKE TEAM / NEUROLOGY - NIHSS NIH Stroke Scale (NIHSS) 1a. Level of Consciousness; ___0-alert __X_1-drowsy ___2-stupor ___3-comatose 1b. LOC Questions month and age; __X_0-both ___1-one ___2-neither 1c. LOC Commands open/close eyes, cook fruit/release non-paretic hand; __X_0-both _ __1-one ___2-neither 2. Best Gaze; ___0-nl __X_1-partial ___2-forced gaze 3. Visual Emery; ___0-No visual loss. ___1-Partial hemianopia __X_2- Complete ___3-Bilateral 4. Facial Palsy; ___0-none ___1-minor _X__2-partial ___3-complete 5. Motor - R arm; _X__0-No drift ___1-Drift ___2-Some antigravity ___3-No antigravity ___4-No movement 6. Motor - R leg; _X__0-No drift ___1-Drift ___2-Some antigravity ___3-No antigravity ___4-No movement 7. Motor - L arm; ___0-No drift ___1-Drift ___2-Some antigravity __X_3-No antigravity ___4-No movement 8. Motor - L leg; ___0-No drift ___1-Drift ___2-Some antigravity _X__3-No antigravity ___4-No movement 9. Limb Ataxia; __X_0 absent ___1 - 1limb ___2 - 2 limbs 10. Sensory; __X_0-nl ___1-partial loss ___2-dense loss 11. Best Language; _X__0-nl ___1-mild/mod ___2-severe ___3-mute 12. Dysarthria; ___0-nl _X__1-mild/mod ___2-severe ____x-untestable 13. Extinction and Inattention (formerly Neglect); ___0-none ___1-partial _X_ _2-complete TOTAL SCORE=14 A/P: 68yo woman w/ dx of ocular migraines, new onset afib, with R MCA stroke , R M1 occlusion s/p tPA and IAT. Etiology is likely cardioemoblic. She has a prior R SEARCH MARKETING SPECIALIST and R cerebellar infarct however the y radiographically appear older than just 4 days ago but if this event 4 days ago does represent a recent stroke, she would be at increased risk for hemorragic conversion. [] repeat head CT @ 6am to look monitor for hemorrhagic conversion - Post tPA vital signs and neurochecks per protocol - Goal [id number] - HOB flat, NS 125cc/hr, aggressive blood glucose control, normothermia - MRI Brain - TTE - A1c, lipid panel - No sqh/aspirin x 24 hours - monitor RLE pulses post IAT - Dysphagia screen - Lipitor 80mg - PT/OT/Speech eval - GI ppx -Follow up with [facility] () as outpt for aneurysm ACUTE STROKE BENCHMARKS: TIME PT LAST SEEN NORMAL :20:15 EMS PRE-NOTIFICATION: 21:04 CODE STROKE ACTIVATION: 21:09 ARRIVAL TIME: 21: 22 TIME OF STROKE TEAM EVALUATION: Pt evaluated by ER first CT HEAD READ TIME: 21:40 IV tPA bolus (time and dose): 7.2mg, 21:48 IV tPA infusion (time and dose): 64.4mg, 21:51 If not a candidate for IV tPA, why? Delays in this process: (None)
--- NOTE | 2018-05-03 15:47 | ER ---
Nurse's Notes [facility] Name: Ning Coffey Age: 72 yrs Sex: Female : 1945 Arrival Date: 05/03/2018 Time: 15:09 Bed 12 Private MD: Reddy Francois Diagnosis: Chronic pharyngitis Presentation: 05/03 15:18 Presenting complaint: Patient states: "I've had a sore throat for about a month and Dr. carola Francois has given me a Z-angelica twice already but it came back last week". Pt denies cough. Transition of care: patient was not received from another setting of care. Onset of symptoms was April 2018. Risk Assessment: Do you want to hurt yourself or someone else? Patient reports no desire to harm self or others. Initial Sepsis Screen: Does the patient meet any 2 criteria? No. Patient's initial sepsis screen is negative. Does the patient have a suspected source of infection? No. Patient's initial sepsis screen is negative. Care prior to arrival: None. 15:18 Method Of Arrival: Ambulatory aa5 15:18 Acuity: DANIELLE 4 aa5 Historical: - Allergies: 15:20 Sulfa (Sulfonamide Antibiotics); aa5 - Home Meds: 15:20 Xarelto 15 mg Oral tab daily [Active]; Carbidopa-Levodopa Oral [Active]; aa5 - PMHx: 15:20 CVA; Parkinsons; aa5 - PSHx: 15:20 Hysterectomy; aa5 - Immunization history:: Adult Immunizations up to date. - Social history:: Smoking status: Patient/guardian denies using tobacco. - Ebola Screening: : No symptoms or risks identified at this time. Screenin:50 Abuse screen: Denies threats or abuse. Denies injuries from another. Nutritional sg screening: No deficits noted. Tuberculosis screening: No symptoms or risk factors identified. Never had TB. Fall Risk None identified. Assessment: 15:40 General: Appears in no apparent distress. comfortable, well groomed, well developed, sg well nourished, Behavior is calm, cooperative, appropriate for age. Pain: Denies pain. Neuro: No deficits noted. Cardiovascular: Heart tones S1 S2 present Capillary refill is brisk in bilateral fingers Patient's skin is warm and dry. Chest pain is denied. Respiratory: Airway is patent Respiratory effort is even, unlabored, Respiratory pattern is regular, symmetrical, Breath sounds are clear. GI: No signs and/or symptoms were reported involving the gastrointestinal system. : No signs and/or symptoms were reported regarding the genitourinary system. EENT: Oral mucosa is moist. Throat is reddened. Derm: Skin is pink, warm \\T\\ dry. Musculoskeletal: No signs and/or symptoms reported regarding the musculoskeletal system. Vital Signs: 15:20 BP 149 / 69; Pulse 57; Resp 16 S; Temp 98.6(TE); Pulse Ox 99% on R/A; Weight 68.04 kg aa5 (R); Height 5 ft. 4 in. (162.56 cm) (R); Pain 10/10; 15:20 Body Mass Index 25.75 (68.04 kg, 162.56 cm) aa5 ED Course: 15:09 Patient arrived in ED. mr 15:09 Alessandro Reddy is Private Physician. mr 15:19 Triage completed. aa5 15:19 Arm band placed on. aa5 15:29 Ej Chambers PA is PHCP. jr8 15:29 Raz Freire MD is Attending Physician. jr8 15:40 Patient has correct armband on for positive identification. Call light in reach. Pulse sg ox on. NIBP on. 15:45 No provider procedures requiring assistance completed. Patient did not have IV access sg during this emergency room visit. 15:46 Lyla Martin MD is Referral Physician. [facility] Administered Medications: No medications were administered Outcome: 15:47 Discharge ordered by . jr 15:50 Discharged to home ambulatory, with family. sg 15:50 Condition: good 15:50 Discharge instructions given to patient, Instructed on discharge instructions, follow up and referral plans. medication usage, safety practices, Demonstrated understanding of instructions, follow-up care, medications, Prescriptions given X 1. 15:59 Patient left the ED. 3 Signatures: Edy Mckeon RN RN Mimi Toribio Audri, RN RN [facility] Ej Chambers PA PA [facility] Yareli Martin [facility]
--- NOTE | 2018-05-03 15:47 | EDPHYS ---
Physician Documentation [facility] Name: Ning Coffey Age: 72 yrs Sex: Female : 1945 Arrival Date: 05/03/2018 Time: 15:09 Bed 12 Private MD: Reddy Francois ED Physician Raz Freire HPI: 05/03 15:54 This 72 yrs old Female presents to ER via Ambulatory with complaints of Sore jr8 Throat. 15:54 The patient presents with sore throat, raw feeling. Onset: The symptoms/episode jr8 began/occurred gradually, 4 week(s) ago. Severity of symptoms: At their worst the symptoms were mild, in the emergency department the symptoms are unchanged. Modifying factors: The symptoms are alleviated by nothing, the symptoms are aggravated by nothing. Associated signs and symptoms: The patient has no apparent associated signs or symptoms. The patient has not experienced similar symptoms in the past. The patient has been recently seen by a physician:. Patient stated that she has had raw feeling in throat, tongue, and bottom of mouth for four weeks now. Has been on antibiotics and two rounds of steroids with mild relief but then would come back. Has appointment with Dr. Martin in two weeks but wanted to know if there is anything else we can do for her . Historical: - Allergies: 15:20 Sulfa (Sulfonamide Antibiotics); aa5 - Home Meds: 15:20 Xarelto 15 mg Oral tab daily [Active]; Carbidopa-Levodopa Oral [Active]; aa5 - PMHx: 15:20 CVA; Parkinsons; aa5 - PSHx: 15:20 Hysterectomy; aa5 - Immunization history:: Adult Immunizations up to date. - Social history:: Smoking status: Patient/guardian denies using tobacco. - Ebola Screening: : No symptoms or risks identified at this time. ROS: 15:54 Constitutional: Negative for fever, chills, and weight loss, Eyes: Negative for injury, jr8 pain, redness, and discharge, Neck: Negative for injury, pain, and swelling, Cardiovascular: Negative for chest pain, palpitations, and edema, Respiratory: Negative for shortness of breath, cough, wheezing, and pleuritic chest pain, Abdomen/GI: Negative for abdominal pain, nausea, vomiting, diarrhea, and constipation, Back: Negative for injury and pain, MS/Extremity: Negative for injury and deformity, Skin: Negative for injury, rash, and discoloration, Neuro: Negative for headache, weakness, numbness, tingling, and seizure. 15:54 ENT: Positive for sore throat, Negative for drainage from ear(s), ear pain, nasal discharge, rhinorrhea, sinus congestion, difficulty swallowing, difficulty handling secretions, hoarseness. Exam: 15:54 Head/Face: Normocephalic, atraumatic. Eyes: Pupils equal round and reactive to light, jr8 extra-ocular motions intact. Lids and lashes normal. Conjunctiva and sclera are non-icteric and not injected. Cornea within normal limits. Periorbital areas with no swelling, redness, or edema. ENT: Nares patent. No nasal discharge, no septal abnormalities noted. Tympanic membranes are normal and external auditory canals are clear. Oropharynx with no redness, swelling, or masses, exudates, or evidence of obstruction, uvula midline. Mucous membranes moist. Neck: Trachea midline, no thyromegaly or masses palpated, and no cervical lymphadenopathy. Supple, full range of motion without nuchal rigidity, or vertebral point tenderness. No Meningismus. Cardiovascular: Regular rate and rhythm with a normal S1 and S2. No gallops, murmurs, or rubs. Normal PMI, no JVD. No pulse deficits. Respiratory: Lungs have equal breath sounds bilaterally, clear to auscultation and percussion. No rales, rhonchi or wheezes noted. No increased work of breathing, no retractions or nasal flaring. Abdomen/GI: Soft, non-tender, with normal bowel sounds. No distension or tympany. No guarding or rebound. No evidence of tenderness throughout. Back: No spinal tenderness. No costovertebral tenderness. Full range of motion. Skin: Warm, dry with normal turgor. Normal color with no rashes, no lesions, and no evidence of cellulitis. MS/ Extremity: Pulses equal, no cyanosis. Neurovascular intact. Full, normal range of motion. Neuro: Awake and alert, GCS 15, oriented to person, place, time, and situation. Cranial nerves II-XII grossly intact. Motor strength 5/5 in all extremities. Sensory grossly intact. Cerebellar exam normal. Normal gait. Vital Signs: 15:20 BP 149 / 69; Pulse 57; Resp 16 S; Temp 98.6(TE); Pulse Ox 99% on R/A; Weight 68.04 kg aa5 (R); Height 5 ft. 4 in. (162.56 cm) (R); Pain 10/10; 15:20 Body Mass Index 25.75 (68.04 kg, 162.56 cm) aa5 MDM: 15:29 Patient medically screened. jr8 15:54 Differential diagnosis: Allergic rhinitis, apthous stomatitis, gastroesophageal reflux jr8 disease, gingivostomatitis, group A strep tonsillitis, human immuneo deficiency virus, herpes simplex virus, jens's angina, lymphoma, pharyngitis, retropharyngeal abcess tonsillitis, uvulitis, viral syndrome leukoplakia, oral thrush. Data reviewed: vital signs, nurses notes, and as a result, I will discharge patient. Data interpreted: Pulse oximetry: on room air is 99 %. Interpretation: normal. Counseling: I had a detailed discussion with the patient and/or guardian regarding: the historical points, exam findings, and any diagnostic results supporting the discharge/admit diagnosis, the need for outpatient follow up, an ENT specialist, to return to the emergency department if symptoms worsen or persist or if there are any questions or concerns that arise at home. ED course: Discussed with patient that on physical exam there are no acute findings. How she is describing the pain is as if she has oral thrush. No antibiotics or steroids indicated at this time. Will try nystatin and see if that may help. Otherwise needs to see Dr. Martin. Patient is good with this plan and will follow up . Administered Medications: No medications were administered Disposition: 05/04 12:09 Co-signature as Attending Physician, aRz Freire MD I agree with the assessment and dyan plan of care. Disposition: 05/03/18 15:47 Discharged to Home. Impression: Chronic pharyngitis. - Condition is Stable. - Discharge Instructions: Sore Throat. - Prescriptions for Nystatin 100,000 unit/mL Oral Suspension - take 5 milliliter by ORAL route every 6 hours; 120 milliliter. - Medication Reconciliation Form, Thank You Letter, Antibiotic Education, Prescription Opioid Use form. - Follow up: Lyla Martin MD; When: 7 - 10 days; Reason: Recheck today's complaints, Continuance of care, Re-evaluation by your physician. - Problem is new. - Symptoms have improved. Signatures: Raz Freire MD MD cha Calderon, Audri RN RN aa5 Ej Chambers PA PA jr8 Yareli Martin 3 Corrections: (The following items were deleted from the chart) 05/03 15:59 15:47 05/03/2018 15:47 Discharged to Home. Impression: Chronic pharyngitis. Condition dh3 is Stable. Forms are Medication Reconciliation Form, Thank You Letter, Antibiotic Education, Prescription Opioid Use. Follow up: Lyla Martin; When: 7 - 10 days; Reason: Recheck today's complaints, Continuance of care, Re-evaluation by your physician. Problem is new. Symptoms have improved. jr8
[2018-05-03 16:03] VITALS: BP 149/69; TEMP 98.6; O2SAT 99
== END 2018-05-03 15:59 | disposition home or self-care (01) ==
LOC: ER 15:05
DX: J31.2 Chronic pharyngitis (principal); G20 Parkinson's disease; Z86.73 Personal history of transient ischemic attack (TIA), and cerebral infarction without residual deficits; Z79.01 Long term (current) use of anticoagulants; Z88.2 Allergy status to sulfonamides
CPT/HCPCS: 99283

== ENCOUNTER 2018-05-16 10:18 | Emergency (ER) | payer OTHER, MEDICARE ==
--- OUTSIDE RECORDS SUMMARY | 2018-05-16 10:21 | XMS REPORT | Continuity of Care Document ---
:1945 Author Organization Interface Problems Problem Status Onset Classification Date Comments Source Date Reported ACUTE STROKE Active [address] SARAH Active [facility] BILLING [address] [place] [address] ACUTE STROKE Active [address] CVA Active [address] DVT (<span Resolved Problem 07/10/2014 [facility] ID="[id number] Medical 97">Confirmed Center </span>) CVA Active [facility] Medications Medication Details Route Status Patient Ordering Order Source Instructions Provider Date Warfarin 7.5 mg, 1 tab, Inactive [facility] Route: PO, Drug 2013 Medical form: TAB, Q5PM, Center Dosing Weight 83, kg, Start date: 07/07/14 17:00:00, Duration: 1 doses or times, Stop date: 07/07/14 17:00:00Notes: Nurse to ensure documentation of patient education per anticoagulation policy. Avoid large intake of vitamin-K containing foods diet. (Same As: Coumadin) atorvastatin 20 20 mg=1 tab, PO, Active 07/07[facility] mg oral tablet Bedtime, # 30 2014 Medical tab, 3 Refill(s) Center aspirin 325 mg 325 mg=1 tab, PO, Active 07/07[facility] tablet Daily, # 100 tab, 2014 Medical 3 Refill(s) Center warfarin 7.5 mg 7.5 mg, PO, Q5PM, Active 07/07[facility] oral tablet # 5 tab, 0 2013 Medical Refill(s) Center OLANZapine 2.5 2.5 mg=1 tab, PO, Active 07/07[facility] mg oral tablet Q6H, Agitation, 0 2013 Medical Refill(s) Center 0.4 mg=1 tab, PO, Active 07/07[facility] Multivitamins Daily, 0 2013 Medical with Folic Acid Refill(s) Center 0.4 mg oral tablet Folic Acid 1 MG 1 mg=1 tab, PO, Active 07/07[facility] Oral Tablet Daily, 0 2013 Medical Refill(s) [place] Docusate Sodium 100 mg=1 cap, PO, Active [place] 100 MG Oral Q12H, 0 Refill(s) 2013 Medical Capsule Center benzonatate 100 100 mg=1 cap, PO, Active [facility] mg oral capsule TID, Cough, 0 2013 Medical Refill(s) [place] Acetaminophen 650 mg=2 tab, PO, Active [place] 325 MG Oral Q4H, Pain 2013 Medical Tablet 1-3/Temp > 99.5 Center F, 0 Refill(s) Warfarin 5 mg, 1 tab, Inactive [place] Route: PO, Drug 2013 Medical form: TAB, Q5PM, Center Dosing Weight 83, kg, Start date: 07/06/14 17:00:00, Duration: 1 doses or times, Stop date: 07/06/14 17:00:00Notes: Nurse to ensure documentation of patient education per anticoagulation policy. Avoid large intake of vitamin-K containing foods diet. (Same As: Coumadin) cefpodoxime 100 mg, Route: Inactive [place] PO, Drug form: 2013 Medical TAB, [id number], Center Dosing Weight 83, kg, Priority: NOW, Start date: 07/06/14 11:17:00, Duration: 7 day, Stop date: 07/12/14 23:17:00 benzonatate 100 mg, 1 cap, No Longer [place] Route: PO, Drug Active 2013 Medical form: CAP, TID, Center Dosing Weight 83, kg, PRN Cough, Start date: 07/06/14 2:28:00, Duration: 30 day, Stop date: 08/05/14 2:27:00Notes: (Same As: Simran Red) "Do Not Crush" Mag-Ox 400 800 mg, 2 tab, Inactive [place] Route: PO, Drug 2013 Medical form: TAB, ONCE, Center Dosing Weight 83, kg, Start date: 07/05/14 15:55:00, Stop date: 07/05/14 15:55:00Notes: (Same as: Mag-Ox 400) Magnesium oxide [id number] elemental magnesium Dose=____mg magnesium oxide (___mg elemental magnesium) Lactated Ringers 1,000 mL, Rate: Inactive [facility] IV 1000 mL 100 ml/hr, Infuse 2013 Medical over: 10 hr, Center Route: IV, Dosing Weight 83 kg, Total Volume: 1,000, Start date: 07/05/14 11:26:00, Duration: 30 day, Stop date: 08/04/14 11:25:00 Lactated Ringers 1,000 mL, Rate: No Longer [facility] IV 1,000 mL 100 ml/hr, Infuse Active 2013 Medical over: 10 hr, Center Route: IV, Dosing Weight 83 kg, Total Volume: 1,000, Priority: STAT, Start date: 07/05/14 10:06:00, Duration: 30 day, Stop date: 08/04/14 10:05:00 Magnesium 2 gm, 50 mL, Inactive [facility] Sulfate Route: IVPB, Drug 2013 Medical form: INJ, ONCE, Center Dosing Weight 83, kg, Total dose=2 gm, Start date: 07/05/14 10:05:00, Duration: 1 doses or times, Stop date: 07/05/14 10:05:00 normal saline 1,000 mL, Rate: Inactive [facility] 0.9% IV 1,000 mL 125 ml/hr, Infuse 2013 Medical over: 8 hr, Center Route: IV, Dosing Weight 83 kg, Total Volume: 1,000, Start date: 07/05/14 9:24:00, Duration: 1 day, Stop date: 07/06/14 9:23:00 Rocephin 1 gm, Route: No Longer [facility] IVPB, Drug form: Active 2013 Medical PDR/INJ, [id number], Center Dosing Weight 83, kg, Start date: 07/05/14 8:00:00, Duration: 30 day, Stop date: 08/03/14 8:00:00Notes: Use with 100ml NS mini-bag PLUS and infuse over 30 min ZyPREXA 2.5 mg, 1 tab, Inactive [facility] Route: PO, Drug 2013 Medical form: TAB, Center Bedtime, Start date: 07/04/14 21:00:00, Duration: 1 doses or times, Stop date: 07/04/14 21:00:00Notes: (Same as: ZyPREXA) Geodon 5 mg, Route: IM, Inactive [facility] Q4H, Dosing 2013 Medical Weight 83, kg, Center Start date: 07/04/14 21:00:00, Duration: 30 day, Stop date: 08/03/14 20:00:00 ZyPREXA 2.5 mg, 1 tab, No Longer [facility] Route: PO, Drug Active 2013 Medical form: TAB, Q6H, Center PRN Agitation, Start date: 07/04/14 17:08:00, Duration: 30 day, Stop date: 08/03/14 17:07:00Notes: (Same as: ZyPREXA) folic acid 1 mg 1 mg, 1 tab, No Longer [facility] oral tablet Route: PO, Drug Active 2013 Medical form: TAB, Daily, Center Start date: 07/04/14 17:00:00, Duration: 30 day, Stop date: 08/03/14 9:00:00Notes: (Same as: Folvite) Sodium Chloride 250 mL, Rate: 999 Inactive [facility] 0.9% IV 250 mL ml/hr, Infuse 2013 Medical over: 0.3 hr, Center Route: IV, Dosing Weight 83 kg, Total Volume: 250, Start date: 07/04/14 14:45:00, Duration: 1 doses or times, Stop date: 07/04/14 15:02:00 Sodium Chloride 500 mL, Rate: 999 Inactive [facility] 0.9% IV 500 mL ml/hr, Infuse 2013 Medical over: 0.5 hr, Center Route: IV, Dosing Weight 83 kg, Total Volume: 500, Start date: 07/04/14 14:44:00, Duration: 1 doses or times, Stop date: 07/04/14 15:13:00 Benadryl 25 mg, 1 cap, Inactive [facility] Route: PO, Drug 2013 Medical form: CAP, ONCE, Center Dosing Weight 83, kg, PRN Itching, Start date: 07/04/14 12:20:00, Stop date: 08/03/14 13:19:00Notes: (Same as: Benadryl) Ativan 1 mg, 0.5 mL, Inactive [place] Route: IV, Drug 2013 Medical form: INJ, Center ONCALL, Dosing Weight 83, kg, Start date: 07/04/14 4:00:00, Duration: 1 doses or times, Stop date: 07/05/14 0:00:00Notes: (Same as: Ativan) heparin, porcine 5,000 unit, 1 mL, No Longer [facility] Route: SUB-Q, Active 2013 Medical Drug form: INJ, Center Q8H, Dosing Weight 83, kg, Start date: 07/04/14 0:00:00, Duration: 30 day, Stop date: 08/02/14 16:00:00Notes: porcine heparin aspirin 325 mg 325 mg, 1 tab, No Longer [facility] tablet Route: PO, Drug Active 2013 Medical form: ECTAB, Center Daily, Dosing Weight 83, kg, Start date: 07/03/14 22:00:00, Duration: 30 day, Stop date: 08/01/14 22:00:00Notes: (Do Not Crush) Do not crush or chew. atorvastatin 20 mg, 1 tab, No Longer [facility] Route: PO, Drug Active 2013 Medical form: TAB, Center Bedtime, Dosing Weight 83, kg, Start date: 07/03/14 21:00:00, Stop date: 08/01/14 21:00:00Notes: (Same As: Lipitor) sennosides, ASSISTED 8.6 mg, 1 tab, No Longer [facility] Route: PO, Drug Active 2013 Medical Form: TAB, Dosing Center Weight 83, kg, BID, Start date: 07/03/14 17:00:00, Duration: 30 day, Stop date: 08/02/14 9:00:00Notes: (Same as: Senokot) pantoprazole 40 mg, Route: Inactive [place] IVP, Drug form: 2013 Medical INJ, Before Center Dinner, Dosing Weight 79.545, kg, Start date: 07/03/14 16:30:00, Duration: 30 day, Stop date: 08/01/14 16:30:00Notes: For IV push reconstitute with 10 ml 0.9% sodium chloride and push over 2 minutes. (Same as: Protonix) Sodium Chloride 1,000 mL, Rate: No Longer [place] 0.154 MEQ/ML 75 ml/hr, Infuse Active 2013 Medical Injectable over: 13.3 hr, [place] Solution Route: IV, Dosing Weight 83 kg, Total Volume: 1,000, Start date: 07/03/14 16:25:00, Duration: 12 hr, Stop date: 07/04/14 4:24:00 Thiamine 100 mg, 1 tab, No Longer [facility] Route: PO, Drug Active 2013 Medical form: TAB, Daily, Center Dosing Weight 83, kg, Start date: 07/03/14 12:00:00, Duration: 30 day, Stop date: 08/02/14 9:00:00Notes: (Same As: Vitamin B1) 1 tab, Route: PO, No Longer [place] Multivitamins Drug Form: TAB, Active 2013 Medical with Folic Acid Dosing Weight 83, Center 0.8 mg oral kg, Daily, Start tablet date: 07/03/14 12:00:00, Duration: 30 day, Stop date: 08/02/14 9:00:00 Saline Flush 10 ml, Route: No Longer [place] 0.9% IVP, Drug Form: Active 2013 Medical INJ, Dosing Center Weight 79.545, kg, Q12H, Start date: 07/03/14 9:00:00, Duration: 30 day, Stop date: 08/01/14 21:00:00Notes: (Same as: BD Posiflush) pneumococcal 0.5 ml, Route: Inactive [facility] capsular IM, Drug Form: 2013 Medical polysaccharide INJ, Daily, Start Center type 1 vaccine / date: 07/03/14 pneumococcal 9:00:00, capsular Duration: 1 doses polysaccharide or times, Stop type 10A vaccine date: 07/03/14 / pneumococcal 9:00:00Notes: capsular (Same as: polysaccharide Pneumovax 23) type 11A vaccine Refrigerate / pneumococcal capsular polysaccharide type 12F vaccine / pneumococcal capsular polysacchar Influenza Virus 0.5 mL, Route: Inactive [facility] Vaccine, IM, Drug Form: 2013 Medical Inactivated SUSP, Daily, [place] [id number]-06 Start date: 07 (H3N2)-like 07/03/14 9:00:00, virus Duration: 1 doses (I-Lyumuhl-321-2 or times, Stop 007 [facility] X-175C) date: 07/03/14 strain / 9:00:00Notes: Influenza Virus (Same as: Fluzone Vaccine, Quadrivalent) Inactivated D-Axarpayz-14-20 07, IVR-148 (H1N1) strain / Influenza Virus Vaccine, Inactivated, K-Kfxjqlt-4 -lik Docusate 100 mg, 1 cap, No [...] Cardizem) magnesium 2 gm, 50 mL, Inactive [facility] sulfate Route: IVPB, Drug 2013 Medical form: INJ, Q2H, Center Start date: 07/03/14 6:00:00, Duration: 2 doses or times, Stop date: 07/03/14 8:00:00 calcium 3,000 mg, 30 mL, Inactive [facility] gluconate + Route: IV, ONCE, 2013 Medical Sodium Chloride Start date: [place] 0.9% IV 100 mL 07/03/14 6:00:00, Stop date: 07/03/14 6:00:00 Sodium Chloride 500 mL, 500 Inactive [facility] 0.154 MEQ/ML ml/hr, Infuse 2013 Medical Injectable Over: 1 hr, [place] Solution Route: IV, 500, Drug form: INJ, ONCE, Priority: STAT, Dosing Weight 83 kg, Start date: 07/03/14 3:50:00, Duration: 1 doses or times, Stop date: 07/03/14 3:50:00 Omnipaque 300 50 ml, Route: Inactive 07/03[facility] [place] INTRAARTERIAL, 2013 Medical Dosing Weight Center [...] Acetaminophen 650 mg, 2 tab, No Longer [place] Route: PO, Drug Active 2013 Medical form: TAB, Q4H, Center Dosing Weight 79.545, kg, PRN Pain 1-3/Temp > 99.5 F, Start date: 07/02/14 22:10:00, Duration: 30 day, Stop date: 08/01/14 22:09:00Notes: Do not exceed 4 gm/day. (Same as: Tylenol) Bisacodyl 10 mg, 1 supp, No Longer [place] Route: UT, Drug Active 2013 Medical form: SUPP, Center Daily, Dosing Weight 79.545, kg, PRN Constipation, Start date: 07/02/14 22:10:00, Duration: 30 day, Stop date: 08/01/14 22:09:00Notes: (Same As: Dulcolax, Bisco-Lax) Nicardipine 40 mg, 200 mL, No Longer [place] Rate: Start at 5 Active 2013 Medical mg/hr., Dosing Center Weight 79.545, kg, Route: IV, Total Volume: 200, Titrate to maintain SBP 140-180mmHg., Start Date: 07/02/14 22:10:00, Duration: 30 day, Stop date: 08/01/14 22:09:00, Replace Every: 24 hrNotes: Same as: Cardene Concentration: (0.2 mg /1 ml ) Enalapril 0.625 mg, 0.5 mL, No Longer [place] Route: IVP, Drug Active 2013 Medical form: [...] 07/02/14 21:54:00 iodixanol 125 mL, Route: Inactive [facility] IVP, Drug Form: 2013 Medical SOLN, Dosing Center Weight 79.545, kg, ONCALL, STAT, Start date: 07/02/14 21:53:00, Duration: 1 doses or times, Dose=2.2ml/kg, Max sxzp=[id number] -- "To be infused by Radiology Staff ONLY"Special Instructions: Dose=2.2ml/kg, Max [id number] -- "To be infused by Radiology Staff ONLY" aspirin 0 Refill(s) No Longer [facility] Active 2013 [facility] Saline Flush 10 mL, Route: No Longer [facility] 0.9% IVP, Drug Form: Active 2013 [facility] INJ, kg, PRN, PRN [place] Flush, Start date: 07/02/14 21:34:00, Duration: 30 day, Stop date: 08/01/14 20:33:00Notes: (Same as: BD Posiflush) Allergies, Adverse Reactions, Alerts Substance Category Reaction Severity Reaction Status Date Comments Source type Reported sulfa drugs Assertion Drug Active [facility] Immunizations Immunization Date Given Site Status Last Comments Source Updated pneumococcal 07/04/2014 Left completed [facility] 23-valent vaccine [facility] influenza virus 07/04/2014 Right completed [facility] vaccine, [facility] Results Order Name Results Value Reference Date Interpretation Comments Source Range URINE AND Occult Bld Negative Negative 07/07 [facility] STOOL [facility] (07/07/14 3:42 PM) Center ELECTROLYTE AGAP 14.5 meq/L 10.0 - 07/07 [facility] S 20.0 [facility] ELECTROLYTE Potassium Lvl 4.5 meq/L 3.5 - 5.1 07/07 [facility] S [facility] ELECTROLYTE Sodium Lvl 142 meq/L 135 - 145 07/07 [facility] S [facility] ELECTROLYTE Calcium Lvl 8.6 mg/dL 8.5 - 10.5 07/07 [facility] S [facility] ELECTROLYTE CO2 22 meq/L 24 - 32 07/07 [facility] S [facility] ELECTROLYTE Chloride Lvl 110 meq/L 95 - 109 07/07 [facility] S [facility] ELECTROLYTE eGFR 58 07/07 1Result Comment: The eGFR is calculated using the CKD-EPI formula. In most young, healthy individuals the eGFR will be > 90 mL/min/1.73m2. The eGFR declines with age. An eGFR of 60-89 may be normal in [facility] mL/min/1. some populations, particularly the elderly, for whom the CKD-EPI formula has not been extensively validated. Use of the eGFR is not recommended in the following populations: [address] Individuals with unstable creatinine concentrations, including [...] Creatinine 1.0 mg/dL 0.5 - 1.4 07/07 [facility] Lvl [facility] ELECTROLYTE BUN 23 mg/dL 7 - 07/07 [facility] S [facility] ELECTROLYTE Glucose Lvl 97 mg/dL 70 - 99 07/07 4Interpretive Data: Adult reference range values reflect the clinical guidelines [facility] of the [place] [employer]. [facility] HEMATOLOGY PT 12.7 s 12.0 - 07/07 [facility] . [facility] HEMATOLOGY INR 0.95 0.85 - 07/07 10Interpretive Data: RECOMMENDED RANGES FOR PROTIME INR: [facility] 1.17 2.0-3.0 for most medical and surgical thromboembolic states. Medical 2.5-3.5 for artificial heart valves and recurrent embolism. Center INR SHOULD BE USED ONLY FOR PATIENTS ON STABLE ANTICOAGULANT THERAPY. HEMATOLOGY RDW 13.8 % 11.5 - 07/07 [place] 14.5 [facility] HEMATOLOGY RBC 3.59 M/CMM 4.20 - 07/07 [place] 5.40 [facility] HEMATOLOGY WBC 12.1 K/CMM 3.7 - 10.4 07/07 [facility] HEMATOLOGY Hgb 11.5 g/dL 12.0 - 07/07 [place] 16.0 [facility] HEMATOLOGY Hct 36.0 % 36.0 - 07/07 [place] 48.0 [facility] HEMATOLOGY MCV 100.3 fL 80.0 - 07/07 [place] 98.0 /2013 [facility] HEMATOLOGY MCH 32.0 pg 27.0 - 07/07 [place] 31.0 [facility] HEMATOLOGY MCHC 31.9 g/dL 32.0 - 07/07 36.0 [facility] HEMATOLOGY MPV 11.4 fL 7.4 - 10.4 07/07 [facility] HEMATOLOGY Platelet 175 K/CMM 133 - 450 07/07 [facility] HEMATOLOGY Monocytes 14.9 % 2.0 - 12.0 07/07 [facility] HEMATOLOGY Eosinophils 3.5 % 0.0 - 4.0 07/07 [facility] HEMATOLOGY Basophils 0.4 % 0.0 - 1.0 07/07 [facility] HEMATOLOGY Lymphocytes # 3.9 K/CMM 1.0 - 5.5 07/07 [facility] HEMATOLOGY Monocytes # 1.8 K/CMM 0.0 - 0.8 07/07 [facility] HEMATOLOGY Segs-Bands # 5.9 K/CMM 1.5 - 8.1 07/07 [facility] HEMATOLOGY Eosinophils # 0.4 K/CMM 0.0 - 0.5 07/07 [facility] HEMATOLOGY Macrocyte 1+ None Seen 07/07 Medical *ABN* Center (07/07/14 1:00 AM) HEMATOLOGY Lymphocytes 32.6 % 20.0 - 07/07 [facility] 40.0 /2013 [facility] HEMATOLOGY Segs 48.6 % 45.0 - 07/07 [facility] 75.0 /2013 [facility] HEMATOLOGY PT 13.9 s 12.0 - 07/07 [facility] 14.7 [facility] HEMATOLOGY INR 1.07 0.85 - 07/07 11Interpretive Data: RECOMMENDED RANGES FOR PROTIME INR: [facility] 1. 2.0-3.0 for most medical and surgical thromboembolic states. Medical 2.5-3.5 for artificial heart valves and recurrent embolism. Center INR SHOULD BE USED ONLY FOR PATIENTS ON STABLE ANTICOAGULANT THERAPY. HEMATOLOGY PTT 35.0 s 22.9 - 07/07 13Interpretiv [facility] 35.8 e Data: Medical Center Clinic Center Therapeutic Range: 57 - 92 Seconds ANEMIA Folate Lvl 14.3 ng/mL >=3.0 07/06 [facility] STUDY ng/mL [facility] ANEMIA Vitamin B12 908 pg/mL 254 - 1320 07/06 [facility] STUDY Lvl [facility] ANEMIA UIBC 245 ug/dl 110 - 370 07/06 [facility] ANEMIA % Satur Fe 18 % 12 - 57 07/06 [facility] ANEMIA Iron 52 ug/dl 30 - 160 07/06 [facility] ANEMIA TIBC 297 ug/dl 228 - 428 07/06 [facility] ANEMIA Transferrin 227 mg/dL 212 - 360 07/06 [facility] HEMATOLOGY Monocytes 15.2 % 2.0 - 12.0 07/06 [facility] HEMATOLOGY Eosinophils # 0.3 K/CMM 0.0 - 0.5 07/06 [facility] HEMATOLOGY Monocytes # 1.6 K/CMM 0.0 - 0.8 07/06 [facility] HEMATOLOGY Basophils 0.4 % 0.0 - 1.0 07/06 [facility] HEMATOLOGY Eosinophils 3.2 % 0.0 - 4.0 07/06 [facility] HEMATOLOGY Lymphocytes # 3.4 K/CMM 1.0 - 5.5 07/06 [facility] HEMATOLOGY Segs-Bands # 5.3 K/CMM 1.5 - 8.1 07/06 [facility] HEMATOLOGY Segs 49.6 % 45.0 - 07/06 75.0 [facility] HEMATOLOGY Plt Morph Normal 07/06 [facility] (07/06/14 2:30 AM) [place] HEMATOLOGY Lymphocytes 31.6 % 20.0 - 07/06 40. [facility] HEMATOLOGY RBC Morph Normal 07/06 [facility] (07/06/14 2:30 AM) Center HEMATOLOGY WBC 10.6 K/CMM 3.7 - 10.4 07/06 [facility] HEMATOLOGY MCV 97.8 fL 80.0 - 07/06 98.0 [facility] HEMATOLOGY Hct 37.0 % 36.0 - 07/06 48. [facility] HEMATOLOGY Hgb 12.1 g/dL 12.0 - 07/06 16. [facility] HEMATOLOGY RBC 3.78 M/CMM 4.20 - 07/06 [place] 5. [facility] HEMATOLOGY MCHC 32.8 g/dL 32.0 - 07/06 [place] 36.0 [facility] HEMATOLOGY MCH 32.1 pg 27.0 - 07/06 [place] 31.0 [facility] HEMATOLOGY RDW 13.9 % 11.5 - 07/06 14. [facility] HEMATOLOGY MPV 12.2 fL 7.4 - 10.4 07/06 [facility] HEMATOLOGY Platelet 167 K/CMM 133 - 450 07/06 [facility] CARDIAC Troponin-T null 0.000 - 07/05 [place] ENZYMES 0.100 [facility] CARDIAC Total CK 123 unit/L 12 - 191 07/05 ENZYMES [facility] CARDIAC Troponin-I 0.02 ng/mL 0.00 - 07/05 [facility] ENZYMES 0.40 [facility] CARDIAC CK MB Index 1.0 0.0 - 2.5 07/05 ENZYMES [facility] CARDIAC CK MB 1.2 ng/mL 0.5 - 3.6 07/05 [facility] HEMATOLOGY Basophils 0.7 % 0.0 - 1.0 07/05 [facility] HEMATOLOGY Eosinophils 2.4 % 0.0 - 4.0 07/05 [facility] HEMATOLOGY Segs-Bands # 5.3 K/CMM 1.5 - 8.1 07/05 [facility] HEMATOLOGY Lymphocytes # 2.1 K/CMM 1.0 - 5.5 07/05 [facility] HEMATOLOGY Monocytes # 1.4 K/CMM 0.0 - 0.8 07/05 [facility] HEMATOLOGY Eosinophils # 0.2 K/CMM 0.0 - 0.5 07/05 [facility] HEMATOLOGY Basophils # 0.1 K/CMM 0.0 - 0.2 07/05 [facility] HEMATOLOGY Segs 58.2 % 45.0 - 07/05 [place] 75.0 [facility] HEMATOLOGY Monocytes 15.5 % 2.0 - 12.0 07/05 [facility] HEMATOLOGY Lymphocytes 23.2 % 20.0 - 07/05 [place] 40.0 [facility] HEMATOLOGY MCHC 33.0 g/dL 32.0 - 07/05 36.0 [facility] HEMATOLOGY RDW 14.0 % 11.5 - 07/05 [facility] [place] 14. [facility] HEMATOLOGY WBC 9.1 K/CMM 3.7 - 10.4 07/05 [facility] HEMATOLOGY RBC 3.13 M/CMM 4.20 - 07/05 5.40 [facility] HEMATOLOGY Hgb 10.1 g/dL 12.0 - 07/05 16.0 [facility] HEMATOLOGY Platelet 142 K/CMM 133 - 450 07/05 [facility] HEMATOLOGY MPV 12.1 fL 7.4 - 10.4 07/05 [facility] HEMATOLOGY Hct 30.7 % 36.0 - 07/05 48.0 [facility] HEMATOLOGY MCH 32.3 pg 27.0 - 07/05 31.0 [facility] [facility] HEMATOLOGY MCV 98.0 fL 80.0 - 07/05 [facility] 98.0 [facility] HEMATOLOGY Basophils # 0.1 K/CMM 0.0 - 0.2 07/05 [facility] CHEM PANEL Magnesium Lvl 1.6 mg/dL 1.8 - 2.4 07/05 [facility] CHEM PANEL Phosphorus 3.7 mg/dL 2.5 - 4.5 07/05 [facility] CHEM PANEL eGFR 76 07/05 2Result Comment: The eGFR is calculated using the CKD-EPI formula. In most young, healthy individuals the eGFR will be >90 mL/ min/1.73m2. The eGFR declines with age. An eGFR of 60-89 may be normal in [facility] mL/min/1.7 some populations, particularly the elderly, for whom the CKD-EPI formula has not been extensively validated. Use of the eGFR is not recommended in the following populations: [address] Individuals with unstable creatinine concentrations, including [...] CO2 25 meq/L 24 - 32 07/05 [facility] CHEM PANEL Calcium Lvl 8.3 mg/dL 8.5 - 10.5 07/05 [facility] CHEM PANEL Sodium Lvl 145 meq/L 135 - 145 07/05 [facility] CHEM PANEL BUN 15 mg/dL 7 - 22 07/05 [facility] CHEM PANEL Creatinine 0.8 mg/dL 0.5 - 1.4 07/05 [facility] CHEM PANEL Chloride Lvl 112 meq/L 95 - 109 07/05 [facility] CHEM PANEL Potassium Lvl 4.5 meq/L 3.5 - 5.1 07/05 [facility] CHEM PANEL Glucose Lvl 89 mg/dL 70 - 99 07/05 5Interpretive Data: Adult reference range values reflect the clinical guidelines of the [place] [employer]. [facility] CHEM PANEL AGAP 12.5 meq/L 10.0 - 07/05 . [facility] DRUG SCREEN U Phencyc Scr Negative Negative 07/05 Medical *NA* [place] (07/04/14 7:50 PM) DRUG SCREEN UDS Note [...] SCREEN U Cocaine Scr Negative Negative 07/05 [facility] *NA* Center (07/04/14 7:50 PM) DRUG SCREEN U Opiate Scr Negative Negative 07/05 [facility] *NA* Center (07/04/14 7:50 PM) DRUG SCREEN U Amph Scr Negative Negative 07/05 [facility] *NA* Center (07/04/14 7:50 PM) URINE AND UA <=1.0 0.1 - 1.0 07/05 [facility] Urobilinogen mg/dL [facility] URINE AND UA RBC 1 /HPF 0 - 2 07/05 [facility] URINE AND UA Mucus Few /LPF None Seen 07/05 [place] STOOL /LPF [facility] URINE AND UA Hyal Cast 1 /LPF 0 - 2 07/05 [facility] URINE AND UA WBC 9 /HPF 0 - 5 07/05 [facility] URINE AND UA Glucose Negative Negative 07/05 [facility] mg/dL mg/dL [facility] URINE AND UA Ketones Negative Negative 07/05 [facility] mg/dL mg/dL [facility] URINE AND UA pH 5.0 5.0 - 8.0 07/05 [facility] URINE AND UA Protein Negative Negative 07/05 [facility] mg/dL mg/dL [facility] URINE AND UA Spec Grav 1.010 <=1.030 07/05 [facility] URINE AND UA Leuk Est Moderate Negative 07/05 [facility] *ABN* Center (07/04/14 7:50 PM) URINE AND UA Sq Epi Few /LPF Few /LPF 07/05 [facility] URINE AND UA Bili Negative Negative 07/05 [facility] *NA* [place] (07/04/14 7:50 PM) URINE AND UA Blood Negative Negative 07/05 [facility] (07/04/14 7:50 PM) Center URINE AND UA Nitrite Negative Negative 07/05 [facility] (07/04/14 7:50 PM) Center URINE AND UA Color Yellow Yellow 07/05 [facility] Medical *NA* Center (07/04/14 7:50 PM) URINE AND UA Turbidity Clear Clear 07/05 [facility] (07/04/14 7:50 PM) [place] CHEM PANEL Lactic Acid 1.0 mMol/L 0.5 - 2.2 07/04 [facility] CHEM PANEL Globulin 2.5 g/dL 2.0 - 4.0 07/04 [facility] CHEM PANEL A/G Ratio 1.3 0.7 - 1.6 07/04 [facility] CHEM PANEL Bili Indirect 0.3 mg/dL 0.0 - 1.0 07/04 [facility] CHEM PANEL Total Protein 5.7 g/dL 6.4 - 8.4 07/04 [facility] CHEM PANEL Alk Phos 61 unit/L 39 - 136 07/04 [facility] CHEM PANEL Albumin Lvl 3.2 g/dL 3.5 - 5.0 07/04 [facility] CHEM PANEL ALT 21 unit/L 0 - 65 07/04 [facility] CHEM PANEL AST 16 unit/L 0 - 37 07/04 [facility] CHEM PANEL Bili Direct 0.1 mg/dL 0.0 - 0.3 07/04 [facility] CHEM PANEL Bili Total 0.4 mg/dL 0.2 - 1.3 07/04 [facility] CHEM PANEL Phosphorus 3.3 mg/dL 2.5 - 4.5 07/04 [facility] CHEM PANEL Magnesium Lvl 1.8 mg/dL 1.8 - 2.4 07/04 [facility] CHEM PANEL eGFR 66 07/04 3Result Comment: The eGFR is calculated using the CKD-EPI formula. In most young, healthy individuals the eGFR will be >90 mL/ min/1.73m2. The eGFR declines with age. An eGFR of 60-89 may be normal in [facility] mL/min/1. some populations, particularly the elderly, for whom the CKD-EPI formula has not been extensively validated. Use of the eGFR is not recommended in the following populations: [place] [id number] Center Individuals with unstable creatinine concentrations, including [...] AGAP 11.5 meq/L 10.0 - 07/04 20.0 [facility] CHEM PANEL Calcium Lvl 8.3 mg/dL 8.5 - 10.5 07/04 [facility] CHEM PANEL Sodium Lvl 144 meq/L 135 - 145 07/04 [facility] CHEM PANEL Potassium Lvl 4.5 meq/L 3.5 - 5.1 07/04 [facility] CHEM PANEL Chloride Lvl 113 meq/L 95 - 109 07/04 [facility] CHEM PANEL CO2 24 meq/L 24 - 32 07/04 [facility] CHEM PANEL Glucose Lvl 107 mg/dL 70 - 99 07/04 6Interpretive Data: Adult reference range values reflect the clinical guidelines of the [place] [employer]. [facility] CHEM PANEL BUN 12 mg/dL 7 - 22 07/04 [facility] CHEM PANEL Creatinine 0.9 mg/dL 0.5 - 1.4 07/04 [facility] HEMATOLOGY INR 1.14 0.85 - 07/04 12Interpretive Data: RECOMMENDED RANGES FOR PROTIME INR: [facility] . 2.0-3.0 for most medical and surgical thromboembolic states. Medical 2.5-3.5 for artificial heart valves and recurrent embolism. Center INR SHOULD BE USED ONLY FOR PATIENTS ON STABLE ANTICOAGULANT THERAPY. HEMATOLOGY PTT 26.0 s 22.9 - 07/04 14Interpretiv [facility] 35.8 2014 e Data: [facility] Therapeutic Range: 57 - 92 Seconds HEMATOLOGY PT 14.7 s 12.0 - 07/04 [facility] 14.7 [facility] PARATHYROID Ca Norm WB 1.06 1.05 - 07/04 [facility] PROFILE mMol/L . [facility] PARATHYROID Ca Ion WB 1.06 1.05 - 07/04 [facility] PROFILE mMol/L . [facility] DRUG SCREEN UDS Note See Note 9 07/03 9Interpretive Data: Drugs reported as positive have not been confirmed by a second method and should be used for medical purposes only. To order Medical *NA* confirmation, contact laboratory. [place] (07/03/14 10:50 AM) note: Below are cut-off [...] SCREEN U Opiate Scr Negative Negative 07/03 [facility] [place] (07/03/14 10:50 AM) DRUG SCREEN U Phencyc Scr Negative Negative 07/03 [facility] *NA* [place] (07/03/14 10:50 AM) DRUG SCREEN U Cocaine Scr Negative Negative 07/03 [facility] [place] (07/03/14 10:50 AM) DRUG SCREEN U Benzodia Negative Negative 07/03 [facility] *NA* [place] (07/03/14 10:50 AM) DRUG SCREEN U Cannab Scr Negative Negative 07/03 [facility] [place] (07/03/14 10:50 AM) DRUG SCREEN U Amph Scr Negative Negative 07/03 [facility] *NA* [place] (07/03/14 10:50 AM) DRUG SCREEN U Shauna Scr Negative Negative 07/03 [facility] *NA* [place] (07/03/14 10:50 AM) LIPIDS CHD Risk 1.95 3.90 - 07/03 [place] 5.80 /2013 [facility] LIPIDS VLDL 8 07/03 [facility] LIPIDS LDL 72 mg/dL <=99 mg/dL 07/03 [place] (Calculated) [facility] LIPIDS Trig 42 mg/dL <=149 07/03 [place] mg/dL [facility] LIPIDS Chol 164 mg/dL <=199 07/03 [place] mg/dL [facility] LIPIDS HDL 84 mg/dL >=61 mg/dL 07/03 7Result Comment: Medical Specimen Center Slightly Hemolyzed. SPECIAL Hgb A1C 4.9 % <=5.6 % 07/03 [facility] CHEMISTRY [facility] URINE AND UA <=1.0 0.1 - 1.0 07/03 [facility] Urobilinogen mg/dL [facility] URINE AND UA Bacteria Occasional None Seen 07/03 [facility] STOOL /HPF /HPF /2013 [facility] URINE AND UA Mucus Few /LPF None Seen 07/03 [facility] STOOL /LPF [facility] URINE AND UA Amorph Occasional None Seen 07/03 [facility] STOOL Christin /HPF /HPF [facility] URINE AND UA Sq Epi Occasional Few /LPF 07/03 [facility] /LPF [facility] URINE AND UA WBC 4 /HPF 0 - 5 07/03 [facility] URINE AND UA Nitrite Negative Negative 07/03 [facility] (07/03/14 10:50 AM) [place] URINE AND UA Blood Negative Negative 07/03 [facility] (07/03/14 10:50 AM) [place] URINE AND UA Ketones Negative Negative 07/03 [facility] mg/dL mg/dL [facility] URINE AND UA RBC 2 /HPF 0 - 2 07/03 [facility] URINE AND UA Leuk Est Negative Negative 07/03 [facility] (07/03/14 10:50 AM) [place] URINE AND UA Color Light Yellow Yellow 07/03 [facility] *NA* [place] (07/03/14 10:50 AM) URINE AND UA pH 5.0 5.0 - 8.0 07/03 [facility] URINE AND UA Bili Negative Negative 07/03 [facility] Medical *NA* [place] (07/03/14 10:50 AM) URINE AND UA Glucose Negative Negative 07/03 [facility] mg/dL mg/dL [facility] URINE AND UA Turbidity Slight Clear 07/03 [facility] *ABN* [place] (07/03/14 10:50 AM) URINE AND UA Spec Grav 1.007 <=1.030 07/03 [facility] URINE AND UA Protein Negative Negative 07/03 [facility] mg/dL mg/dL [facility] BACTERIAL - MRSA by PCR Negative 16 07/03 16Interpretive Data: Interpretive Data: The Kerri LightCycler MRSA assay is a qualitative test for the direct detection of nasal colonization with methicillin-resistant Staphylococcus aureus (MRSA) to aid [facility] in the prevention and control of MRSA infections in healthcare settings. A positive result does not indicate an infection or require treatment. A negative result does not exclude colonization or infection. [facility] (07/03/14 3:11 AM) Center The polymerase chain reaction (PCR) assay detects a proprietary sequence indicative of the integration of the SCCmec cassette into the Staphylococcus aureus chromosome, indicating the presence of MRSA D NA. The assay utilizes FDA cleared IVD reagents. Performance characteristics have been verified by the [facility] within the [facility]. The [facility] Labor atory is authorized under the Clinical Laboratory Improvement Amendment of 1988 (CLIA-88) to perform high complexity testing. CARDIAC Troponin-I null 0.00 - 07/03 [facility] ENZYMES 0.40 [facility] CARDIAC Total CK 51 unit/L 12 - 191 07/03 [facility] CHEM PANEL Phosphorus 2.8 mg/dL 2.5 - 4.5 07/03 [facility] CHEM PANEL Magnesium Lvl 1.7 mg/dL 1.8 - 2.4 07/03 [facility] CHEM PANEL Total Protein 5.6 g/dL 6.4 - 8.4 07/03 [facility] CHEM PANEL Albumin Lvl 3.0 g/dL 3.5 - 5.0 07/03 [facility] CHEM PANEL Globulin 2.6 g/dL 2.0 - 4.0 07/03 [facility] CHEM PANEL A/G Ratio 1.2 0.7 - 1.6 07/03 [facility] CHEM PANEL ALT 26 unit/L 0 - 65 07/03 [facility] CHEM PANEL Alk Phos 66 unit/L 39 - 136 07/03 [facility] CHEM PANEL AST 18 unit/L 0 - 37 07/03 [facility] CHEM PANEL Bili Indirect 0.1 mg/dL 0.0 - 1.0 07/03 [facility] CHEM PANEL Bili Total 0.2 mg/dL 0.2 - 1.3 07/03 [facility] CHEM PANEL Bili Direct 0.1 mg/dL 0.0 - 0.3 07/03 [facility] HEMATOLOGY PTT 28.0 s 22.9 - 07/03 15Interpretiv [place] 35.8 e Data: [facility] Therapeutic Range: 57 - 92 Seconds PARATHYROID Ca Norm WB 1.01 1.05 - 07/03 [facility] PROFILE mMol/L 1. [facility] PARATHYROID Ca Ion WB 1.04 1.05 - 07/03 [facility] PROFILE mMol/L 1.25 [facility] CARDIAC Troponin-T 0.031 0.000 - 07/03 [facility] ENZYMES ng/mL 0.100 [facility] BLOOD BANK Antibody Scrn Negative 07/03 [facility] RESULTS [facility] (07/02/14 11:20 PM) [place] BLOOD BANK ABO/Rh O POS 07/03 [facility] RESULTS [facility] CARDIAC Troponin-I null 0.00 - 07/03 [facility] ENZYMES 0.40 [facility] CARDIAC Total CK 59 unit/L 12 - 191 07/03 [facility] ENZYMES [facility] CARDIAC CK MB 0.7 ng/mL 0.5 - 3.6 07/03 [facility] ENZYMES [facility] CARDIAC CK MB Index 1.2 0.0 - 2.5 07/03 [facility] ENZYMES [facility] HEMATOLOGY Basophils # 0.0 K/CMM 0.0 - 0.2 07/03 [facility] HEMATOLOGY RBC Morph Normal 07/03 [facility] (07/02/14 10:15 PM) [place] HEMATOLOGY Plt Morph Normal 07/03 [facility] (07/02/14 10:15 PM) [place] CHEM PANEL POC 1.2 mg/dL 0.5 - 1.4 07/03 [facility] Creatinine [facility] Vital Signs Vital Sign Value Date Comments Source Systolic (mm Hg) 147 07/08/2014 [facility] Respitory Rate 35 07/08/2014 [facility] Diastolic (mm Hg) 74 07/08/2014 [facility] Respitory Rate 22 07/07/2014 [facility] Diastolic (mm Hg) 68 07/07/2014 [facility] Respitory Rate 20 07/07/2014 [facility] Systolic (mm Hg) 126 07/07/2014 [facility] Diastolic (mm Hg) 75 07/07/2014 [facility] Systolic (mm Hg) 118 07/07/2014 [facility] Heart Rate 69 07/04/2014 [facility] Heart Rate 72 07/04/2014 [facility] Heart Rate 67 07/04/2014 [facility] Height 162.56 cm 07/03/2014 [facility] Weight 83 07/03/2014 [facility] BMI Calculated 31.41 07/03/2014 [facility] Height 162.56 cm 07/03/2014 [facility] Weight 83 07/03/2014 [facility] BMI Calculated 31.41 07/03/2014 [facility] Temperature Oral (F) 97.0 F 07/03/2014 [facility] Temperature Oral (F) 97.9 F 07/03/2014 [facility] BMI Calculated 30.1 07/03/2014 [facility] Weight 79.545 07/03/2014 [facility] Height 162.56 cm 07/03/2014 [facility] Encounters Location Location Encounter Encounter Reason Attending ADM DC Status Source Details Type Number For Provider Date Date Visit [facility] [id number] [facility] 07/03 07/08 [facility] [place] /2013 [facility] Outpatient [id number] SONIA 12/15 Active [facility] [place] [facility] [id number] SONIA 03/16 Active [facility] [place] Outpatient [id number] SONIA 07/20 Active [facility] Formerly named [facility] [place] Procedures Procedure Code Date Perfomer Comments Source Splenectomy [id number] [facility]
--- NOTE | 2018-05-16 10:49 | ER ---
Nurse's Notes [facility] Unit Name: Ning Coffey Age: 72 yrs Sex: Female : 1945 Arrival Date: 05/16/2018 Time: 10:21 Bed 19 Private MD: Reddy Francois Diagnosis: Cellilitis of the right hand Presentation: 05/16 10:26 Presenting complaint: Patient states: She got a skin tear on her right hand on aj1 Thursday. Yesterday she noticed redness and swelling to the area, and it was draining clear fluid. Denies fever. Transition of care: patient was not received from another setting of care. Onset of symptoms was May 12, 2018. Risk Assessment: Do you want to hurt yourself or someone else? Patient reports no desire to harm self or others. Initial Sepsis Screen: Does the patient meet any 2 criteria? No. Patient's initial sepsis screen is negative. Does the patient have a suspected source of infection? Yes: Skin breakdown/wound. Care prior to arrival: None. 10:26 Method Of Arrival: Ambulatory aj1 10:26 Acuity: DANIELLE 4 aj1 Triage Assessment: 10:28 General: Appears Behavior is calm, cooperative, appropriate for age. Pain: Denies pain. aj1 Neuro: Level of Consciousness is awake, alert, obeys commands. Cardiovascular: Patient's skin is warm and dry. Respiratory: Airway is patent Respiratory effort is even, unlabored, Respiratory pattern is regular, symmetrical. Historical: - Allergies: 10:28 Sulfa (Sulfonamide Antibiotics); aj1 - Home Meds: 10:28 Carbidopa-Levodopa Oral [Active]; hydrocodone-acetaminophen 10-325 mg Oral tab 1 tab aj1 every 4 hours for Pain [Active]; Xarelto 15 mg Oral tab daily [Active]; - PMHx: 10:28 CVA; Parkinsons; aj1 - Immunization history:: Flu vaccine is up to date. - Social history:: Smoking status: Patient/guardian denies using tobacco. - Ebola Screening: : Patient denies travel to an Ebola-affected area in the 21 days before illness onset. Screenin:01 Abuse screen: Denies threats or abuse. Nutritional screening: No deficits noted. em Tuberculosis screening: No symptoms or risk factors identified. Fall Risk None identified. Assessment: 10:50 General: Appears in no apparent distress. comfortable, Behavior is calm, cooperative, em Denies fever, small skin tear and redness noted to the right hand. Pain: Complains of pain in dorsum of right hand. Neuro: Level of Consciousness is awake, alert, obeys commands, Oriented to person, place, time, situation. Cardiovascular: Capillary refill < 3 seconds Patient's skin is warm and dry. Respiratory: Airway is patent Respiratory effort is even, unlabored, Respiratory pattern is regular, symmetrical. GI: Abdomen is flat. : No signs and/or symptoms were reported regarding the genitourinary system. EENT: No signs and/or symptoms were reported regarding the EENT system. Derm: Skin Skin is dry, Skin temperature is warm Wound noted dorsum of right hand. Musculoskeletal: Capillary refill < 3 seconds, Range of motion: intact in all extremities. Vital Signs: 10:28 BP 156 / 83; Pulse 54; Resp 18; Temp 97.3; Pulse Ox 97% on R/A; Weight 68.04 kg (R); aj1 Height 5 ft. 4 in. (162.56 cm) (R); Pain 0/10; 10:28 Body Mass Index 25.75 (68.04 kg, 162.56 cm) aj1 ED Course: 10:21 Patient arrived in ED. sb2 10:21 Reddy Francois is Private Physician. sb2 10:28 Triage completed. aj1 10:28 Arm band placed on Patient placed in an exam room. aj1 10:32 Marlon Watson PA is PHCP. jmm 10:32 Shlomo Harvey MD is Attending Physician. jmm 10:36 Deandre Morin LVN is Primary Nurse. em 10:48 Terrell Ritchie MD is Referral Physician. jmm 10:50 Patient has correct armband on for positive identification. Placed in gown. Bed in low em position. 10:50 No provider procedures requiring assistance completed. Patient did not have IV access em during this emergency room visit. Administered Medications: No medications were administered Outcome: 10:48 Discharge ordered by . jmm 10:50 Discharged to home ambulatory. em 10:50 Condition: good 10:50 Discharge instructions given to patient, Instructed on discharge instructions, follow up and referral plans. medication usage, Demonstrated understanding of instructions, follow-up care, medications. 11:05 Patient left the ED. em Signatures: Marry Garza RN RN aj1 Marlon Watson PA PA jmm Munoz, Edgar, CONE MACHINE OPERATOR CONE MACHINE OPERATOR em Khushi Villa sb2
--- NOTE | 2018-05-16 10:49 | EDPHYS ---
Physician Documentation [facility] Name: Ning Coffey Age: 72 yrs Sex: Female : 1945 Arrival Date: 05/16/2018 Time: 10:21 Bed 19 Private MD: Reddy Francois ED Physician Shlomo Harvey HPI: 05/16 10:46 This 72 yrs old Female presents to ER via Ambulatory with complaints of Right jmm hand redness. 10:46 The patient or guardian reports pain, swelling, tenderness. jmm 10:46 The complaints affect the dorsum of right hand. Onset: The symptoms/episode jmm began/occurred gradually, 4 day(s) ago. Modifying factors: The symptoms are alleviated by nothing, the symptoms are aggravated by nothing. Associated signs and symptoms: Pertinent negatives: fever. This is a 72 year old female with a history of CVA, that presents to the ED with right hand redness developing yesterday. Patient states she was scratched this past Thursday. Denies fever or chills. . Historical: - Allergies: 10:28 Sulfa (Sulfonamide Antibiotics); aj1 - Home Meds: 10:28 Carbidopa-Levodopa Oral [Active]; hydrocodone-acetaminophen 10-325 mg Oral tab 1 tab aj1 every 4 hours for Pain [Active]; Xarelto 15 mg Oral tab daily [Active]; - PMHx: 10:28 CVA; Parkinsons; aj1 - Immunization history:: Flu vaccine is up to date. - Social history:: Smoking status: Patient/guardian denies using tobacco. - Ebola Screening: : Patient denies travel to an Ebola-affected area in the 21 days before illness onset. ROS: 10:46 Constitutional: Negative for fever, chills, and weight loss, Cardiovascular: Negative jmm for chest pain, palpitations, and edema, Respiratory: Negative for shortness of breath, cough, wheezing, and pleuritic chest pain, Abdomen/GI: Negative for abdominal pain, nausea, vomiting, diarrhea, and constipation. 10:46 MS/extremity: Positive for erythema. 10:46 Skin: Positive for erythema. 10:46 All other systems are negative. Exam: 10:46 Head/Face: atraumatic. Chest/axilla: Normal chest wall appearance and motion. jmm Cardiovascular: Regular rate and rhythm. No edema appreciated Respiratory: Normal respirations, no respiratory distress appreciated 10:46 Constitutional: The patient appears in no acute distress, alert, awake. 10:46 Musculoskeletal/extremity: FROM appreciated to the right hand, compartments soft, < 2 sec dist cap refill, NVI. 10:46 Skin: erythema noted to the dorsum of the right hand, no purulent drainage is appreciated, the area is mildly tender to palpation. . 10:46 Neuro: Orientation: is normal, Mentation: is normal, Memory: is normal, Gait: is steady. 10:46 Psych: Behavior/mood is pleasant, cooperative. Vital Signs: 10:28 BP 156 / 83; Pulse 54; Resp 18; Temp 97.3; Pulse Ox 97% on R/A; Weight 68.04 kg (R); aj1 Height 5 ft. 4 in. (162.56 cm) (R); Pain 0/10; 10:28 Body Mass Index 25.75 (68.04 kg, 162.56 cm) aj1 MDM: 10:34 Patient medically screened. [facility] 10:46 Data reviewed: vital signs, nurses notes. Counseling: I had a detailed discussion with alisia the patient and/or guardian regarding: the historical points, exam findings, and any diagnostic results supporting the discharge/admit diagnosis, the need for outpatient follow up, to return to the emergency department if symptoms worsen or persist or if there are any questions or concerns that arise at home. ED course: Patient advised to follow up with hand surgery in 1 to 2 days for reevaluation. Given strict return precautions. Patient understood and agree with the plan of care. . Administered Medications: No medications were administered Disposition: 12:16 Co-signature as Attending Physician, Shlomo Harvey MD. rn Disposition: 05/16/18 10:48 Discharged to Home. Impression: Cellilitis of the right hand. - Condition is Stable. - Discharge Instructions: Cellulitis, Adult. - Prescriptions for Doxycycline Hyclate 100 mg Oral Tablet - take 1 tablet by ORAL route every 12 hours; 20 tablet. - Medication Reconciliation Form, Thank You Letter, Antibiotic Education, Prescription Opioid Use form. - Follow up: Terrell Ritchie MD; When: 1 - 2 days; Reason: Recheck today's complaints, Continuance of care, Re-evaluation by your physician. - Notes: Please follow up with hand surgery in 1 to 2 days. Return to the ED if you develop - Fever - increased swelling - increased pain - any other concerning symptoms Signatures: Marry Garza RN RN aj1 Marlon Watson PA PA jmm Munoz, Edgar, COMMISSIONER [employer] COMMISSIONER [employer] em Shlomo Harvey MD MD pharmacy grad intern: (The following items were deleted from the chart) 11:05 10:48 05/16/2018 10:48 Discharged to Home. Impression: Cellilitis of the right hand. em Condition is Stable. Forms are Medication Reconciliation Form, Thank You Letter, Antibiotic Education, Prescription Opioid Use. Follow up: Terrell Ritchie; When: 1 - 2 days; Reason: Recheck today's complaints, Continuance of care, Re-evaluation by your physician. alisia
[2018-05-16 11:10] VITALS: BP 156/83; TEMP 97.3; O2SAT 97
== END 2018-05-16 11:05 | disposition home or self-care (01) ==
LOC: ER 10:18
DX: L03.113 Cellulitis of right upper limb (principal); G20 Parkinson's disease; Z86.73 Personal history of transient ischemic attack (TIA), and cerebral infarction without residual deficits; Z88.2 Allergy status to sulfonamides
CPT/HCPCS: 99281

== ENCOUNTER 2018-05-17 10:14 | Inpatient (IN) | payer OTHER, MEDICARE ==
--- OUTSIDE RECORDS SUMMARY | 2018-05-17 10:18 | XMS REPORT | Continuity of Care Document ---
:1945 Author Organization Interface Problems Problem Status Onset Classification Date Comments Source Date Reported ACUTE STROKE Active [address] SARAH Active [facility] BILLING [address] [place] [address] ACUTE STROKE Active [address] CVA Active [address] DVT (<span Resolved Problem 07/10/2014 [facility] ID="[id number] Medical 97">Confirmed Center </span>) CVA Active [facility] Medications Medication Details Route Status Patient Ordering Order Source Instructions Provider Date Warfarin 7.5 mg, 1 tab, Inactive [facility] Route: PO, Drug 2013 Medical form: TAB, Q5PM, Center Dosing Weight 83, kg, Start date: 07/07/14 17:00:00, Duration: 1 doses or times, Stop date: 07/07/14 17:00:00Notes: Nurse to ensure documentation of patient education per anticoagulation policy. Avoid large intake of vitamin-K containing foods diet. (Same As: Coumadin) atorvastatin 20 20 mg=1 tab, PO, Active 07/07[facility] mg oral tablet Bedtime, # 30 2014 Medical tab, 3 Refill(s) Center aspirin 325 mg 325 mg=1 tab, PO, Active 07/07[facility] tablet Daily, # 100 tab, 2014 Medical 3 Refill(s) Center warfarin 7.5 mg 7.5 mg, PO, Q5PM, Active 07/07[facility] oral tablet # 5 tab, 0 2013 Medical Refill(s) Center OLANZapine 2.5 2.5 mg=1 tab, PO, Active 07/07[facility] mg oral tablet Q6H, Agitation, 0 2013 Medical Refill(s) Center 0.4 mg=1 tab, PO, Active 07/07[facility] Multivitamins Daily, 0 2013 Medical with Folic Acid Refill(s) Center 0.4 mg oral tablet Folic Acid 1 MG 1 mg=1 tab, PO, Active 07/07[facility] Oral Tablet Daily, 0 2013 Medical Refill(s) [facility] Docusate Sodium 100 mg=1 cap, PO, Active [place] 100 MG Oral Q12H, 0 Refill(s) 2013 Medical Capsule Center benzonatate 100 100 mg=1 cap, PO, Active [facility] mg oral capsule TID, Cough, 0 2013 Medical Refill(s) [facility] Acetaminophen 650 mg=2 tab, PO, Active [place] 325 MG Oral Q4H, Pain 2013 Medical Tablet 1-3/Temp > 99.5 Center F, 0 Refill(s) Warfarin 5 mg, 1 tab, Inactive [place] Route: PO, Drug 2013 Medical form: TAB, Q5PM, Center Dosing Weight 83, kg, Start date: 07/06/14 17:00:00, Duration: 1 doses or times, Stop date: 07/06/14 17:00:00Notes: Nurse to ensure documentation of patient education per anticoagulation policy. Avoid large intake of vitamin-K containing foods diet. (Same As: Coumadin) cefpodoxime 100 mg, Route: Inactive [place] PO, Drug form: 2013 Medical TAB, [id number], Center Dosing Weight 83, kg, Priority: NOW, Start date: 07/06/14 11:17:00, Duration: 7 day, Stop date: 07/12/14 23:17:00 benzonatate 100 mg, 1 cap, No Longer [place] Route: PO, Drug Active 2013 Medical form: CAP, TID, Center Dosing Weight 83, kg, PRN Cough, Start date: 07/06/14 2:28:00, Duration: 30 day, Stop date: 08/05/14 2:27:00Notes: (Same As: Simran Red) "Do Not Crush" Mag-Ox 400 800 mg, 2 tab, Inactive [place] Route: PO, Drug 2013 Medical form: TAB, ONCE, Center Dosing Weight 83, kg, Start date: 07/05/14 15:55:00, Stop date: 07/05/14 15:55:00Notes: (Same as: Mag-Ox 400) Magnesium oxide 869oz=414ek elemental magnesium Dose=____mg magnesium oxide (___mg elemental magnesium) Lactated Ringers 1,000 mL, Rate: Inactive [facility] IV 1000 mL 100 ml/hr, Infuse 2013 Medical over: 10 hr, Center Route: IV, Dosing Weight 83 kg, Total Volume: 1,000, Start date: 07/05/14 11:26:00, Duration: 30 day, Stop date: 08/04/14 11:25:00 Lactated Ringers 1,000 mL, Rate: No Longer [facility] IV 1,000 mL 100 ml/hr, Infuse Active 2013 Medical over: 10 hr, Center Route: IV, Dosing Weight 83 kg, Total Volume: 1,000, Priority: STAT, Start date: 07/05/14 10:06:00, Duration: 30 day, Stop date: 08/04/14 10:05:00 Magnesium 2 gm, 50 mL, Inactive [facility] Sulfate Route: IVPB, Drug 2013 Medical form: INJ, ONCE, Center Dosing Weight 83, kg, Total dose=2 gm, Start date: 07/05/14 10:05:00, Duration: 1 doses or times, Stop date: 07/05/14 10:05:00 normal saline 1,000 mL, Rate: Inactive [facility] 0.9% IV 1,000 mL 125 ml/hr, Infuse 2013 Medical over: 8 hr, Center Route: IV, Dosing Weight 83 kg, Total Volume: 1,000, Start date: 07/05/14 9:24:00, Duration: 1 day, Stop date: 07/06/14 9:23:00 Rocephin 1 gm, Route: No Longer [facility] IVPB, Drug form: Active 2013 Medical PDR/INJ, [id number], Center Dosing Weight 83, kg, Start date: 07/05/14 8:00:00, Duration: 30 day, Stop date: 08/03/14 8:00:00Notes: Use with 100ml NS mini-bag PLUS and infuse over 30 min ZyPREXA 2.5 mg, 1 tab, Inactive [facility] Route: PO, Drug 2013 Medical form: TAB, Center Bedtime, Start date: 07/04/14 21:00:00, Duration: 1 doses or times, Stop date: 07/04/14 21:00:00Notes: (Same as: ZyPREXA) Geodon 5 mg, Route: IM, Inactive [facility] Q4H, Dosing 2013 Medical Weight 83, kg, Center Start date: 07/04/14 21:00:00, Duration: 30 day, Stop date: 08/03/14 20:00:00 ZyPREXA 2.5 mg, 1 tab, No Longer [facility] Route: PO, Drug Active 2013 Medical form: TAB, Q6H, Center PRN Agitation, Start date: 07/04/14 17:08:00, Duration: 30 day, Stop date: 08/03/14 17:07:00Notes: (Same as: ZyPREXA) folic acid 1 mg 1 mg, 1 tab, No Longer [facility] oral tablet Route: PO, Drug Active 2013 Medical form: TAB, Daily, Center Start date: 07/04/14 17:00:00, Duration: 30 day, Stop date: 08/03/14 9:00:00Notes: (Same as: Folvite) Sodium Chloride 250 mL, Rate: 999 Inactive [facility] 0.9% IV 250 mL ml/hr, Infuse 2013 Medical over: 0.3 hr, Center Route: IV, Dosing Weight 83 kg, Total Volume: 250, Start date: 07/04/14 14:45:00, Duration: 1 doses or times, Stop date: 07/04/14 15:02:00 Sodium Chloride 500 mL, Rate: 999 Inactive [facility] 0.9% IV 500 mL ml/hr, Infuse 2013 Medical over: 0.5 hr, Center Route: IV, Dosing Weight 83 kg, Total Volume: 500, Start date: 07/04/14 14:44:00, Duration: 1 doses or times, Stop date: 07/04/14 15:13:00 Benadryl 25 mg, 1 cap, Inactive [facility] Route: PO, Drug 2013 Medical form: CAP, ONCE, Center Dosing Weight 83, kg, PRN Itching, Start date: 07/04/14 12:20:00, Stop date: 08/03/14 13:19:00Notes: (Same as: Benadryl) Ativan 1 mg, 0.5 mL, Inactive [place] Route: IV, Drug 2013 Medical form: INJ, Center ONCALL, Dosing Weight 83, kg, Start date: 07/04/14 4:00:00, Duration: 1 doses or times, Stop date: 07/05/14 0:00:00Notes: (Same as: Ativan) heparin, porcine 5,000 unit, 1 mL, No Longer [facility] Route: SUB-Q, Active 2013 Medical Drug form: INJ, Center Q8H, Dosing Weight 83, kg, Start date: 07/04/14 0:00:00, Duration: 30 day, Stop date: 08/02/14 16:00:00Notes: porcine heparin aspirin 325 mg 325 mg, 1 tab, No Longer [facility] tablet Route: PO, Drug Active 2013 Medical form: ECTAB, Center Daily, Dosing Weight 83, kg, Start date: 07/03/14 22:00:00, Duration: 30 day, Stop date: 08/01/14 22:00:00Notes: (Do Not Crush) Do not crush or chew. atorvastatin 20 mg, 1 tab, No Longer [facility] Route: PO, Drug Active 2013 Medical form: TAB, Center Bedtime, Dosing Weight 83, kg, Start date: 07/03/14 21:00:00, Stop date: 08/01/14 21:00:00Notes: (Same As: Lipitor) sennosides, [facility] 8.6 mg, 1 tab, No Longer [facility] Route: PO, Drug Active 2013 Medical Form: TAB, Dosing Center Weight 83, kg, BID, Start date: 07/03/14 17:00:00, Duration: 30 day, Stop date: 08/02/14 9:00:00Notes: (Same as: Senokot) pantoprazole 40 mg, Route: Inactive [place] IVP, Drug form: 2013 Medical INJ, Before Center Dinner, Dosing Weight 79.545, kg, Start date: 07/03/14 16:30:00, Duration: 30 day, Stop date: 08/01/14 16:30:00Notes: For IV push reconstitute with 10 ml 0.9% sodium chloride and push over 2 minutes. (Same as: Protonix) Sodium Chloride 1,000 mL, Rate: No Longer [place] 0.154 MEQ/ML 75 ml/hr, Infuse Active 2013 Medical Injectable over: 13.3 hr, [facility] Solution Route: IV, Dosing Weight 83 kg, Total Volume: 1,000, Start date: 07/03/14 16:25:00, Duration: 12 hr, Stop date: 07/04/14 4:24:00 Thiamine 100 mg, 1 tab, No Longer [facility] Route: PO, Drug Active 2013 Medical form: TAB, Daily, Center Dosing Weight 83, kg, Start date: 07/03/14 12:00:00, Duration: 30 day, Stop date: 08/02/14 9:00:00Notes: (Same As: Vitamin B1) 1 tab, Route: PO, No Longer [place] Multivitamins Drug Form: TAB, Active 2013 Medical with Folic Acid Dosing Weight 83, Center 0.8 mg oral kg, Daily, Start tablet date: 07/03/14 12:00:00, Duration: 30 day, Stop date: 08/02/14 9:00:00 Saline Flush 10 ml, Route: No Longer [place] 0.9% IVP, Drug Form: Active 2013 Medical INJ, Dosing Center Weight 79.545, kg, Q12H, Start date: 07/03/14 9:00:00, Duration: 30 day, Stop date: 08/01/14 21:00:00Notes: (Same as: BD Posiflush) pneumococcal 0.5 ml, Route: Inactive [facility] capsular IM, Drug Form: 2013 Medical polysaccharide INJ, Daily, Start Center type 1 vaccine / date: 07/03/14 pneumococcal 9:00:00, capsular Duration: 1 doses polysaccharide or times, Stop type 10A vaccine date: 07/03/14 / pneumococcal 9:00:00Notes: capsular (Same as: polysaccharide Pneumovax 23) type 11A vaccine Refrigerate / pneumococcal capsular polysaccharide type 12F vaccine / pneumococcal capsular polysacchar Influenza Virus 0.5 mL, Route: Inactive [facility] Vaccine, IM, Drug Form: 2013 Medical Inactivated SUSP, Daily, [facility] [id number]-90 Start date: 07 (H3N2)-like 07/03/14 9:00:00, virus Duration: 1 doses ([id number] or times, Stop 007 [facility] [place] [id number]) date: 07/03/14 strain / 9:00:00Notes: Influenza Virus (Same as: Fluzone Vaccine, Quadrivalent) Inactivated [id number] 07, IVR-148 (H1N1) strain / Influenza Virus Vaccine, Inactivated, I-Ncwdxfv-0 -lik Docusate 100 mg, 1 cap, No [...] Cardizem) magnesium 2 gm, 50 mL, Inactive [facility] sulfate Route: IVPB, Drug 2013 Medical form: INJ, Q2H, Center Start date: 07/03/14 6:00:00, Duration: 2 doses or times, Stop date: 07/03/14 8:00:00 calcium 3,000 mg, 30 mL, Inactive [facility] gluconate + Route: IV, ONCE, 2013 Medical Sodium Chloride Start date: [facility] 0.9% IV 100 mL 07/03/14 6:00:00, Stop date: 07/03/14 6:00:00 Sodium Chloride 500 mL, 500 Inactive [facility] 0.154 MEQ/ML ml/hr, Infuse 2013 Medical Injectable Over: 1 hr, [facility] Solution Route: IV, 500, Drug form: INJ, ONCE, Priority: STAT, Dosing Weight 83 kg, Start date: 07/03/14 3:50:00, Duration: 1 doses or times, Stop date: 07/03/14 3:50:00 Omnipaque 300 50 ml, Route: Inactive 07/03[facility] Joycelyn INTRAARTERIAL, 2013 Medical Dosing Weight [...] Acetaminophen 650 mg, 2 tab, No Longer [place] Route: PO, Drug Active 2013 Medical form: TAB, Q4H, Center Dosing Weight 79.545, kg, PRN Pain 1-3/Temp > 99.5 F, Start date: 07/02/14 22:10:00, Duration: 30 day, Stop date: 08/01/14 22:09:00Notes: Do not exceed 4 gm/day. (Same as: Tylenol) Bisacodyl 10 mg, 1 supp, No Longer [place] Route: PA, Drug Active 2013 Medical form: SUPP, Center Daily, Dosing Weight 79.545, kg, PRN Constipation, Start date: 07/02/14 22:10:00, Duration: 30 day, Stop date: 08/01/14 22:09:00Notes: (Same As: Dulcolax, Bisco-Lax) Nicardipine 40 mg, 200 mL, No Longer [place] Rate: Start at 5 Active 2013 Medical mg/hr., Dosing Center Weight 79.545, kg, Route: IV, Total Volume: 200, Titrate to maintain SBP 140-180mmHg., Start Date: 07/02/14 22:10:00, Duration: 30 day, Stop date: 08/01/14 22:09:00, Replace Every: 24 hrNotes: Same as: Cardene Concentration: (0.2 mg /1 ml ) Enalapril 0.625 mg, 0.5 mL, No Longer [place] Route: IVP, Drug Active 2013 Medical form: [...] 07/02/14 21:54:00 iodixanol 125 mL, Route: Inactive [facility] IVP, Drug Form: 2013 Medical SOLN, Dosing Center Weight 79.545, kg, ONCALL, STAT, Start date: 07/02/14 21:53:00, Duration: 1 doses or times, Dose=2.2ml/kg, Max yeiz=088ix -- "To be infused by Radiology Staff ONLY"Special Instructions: Dose=2.2ml/kg, Max ggmw=[id number] -- "To be infused by Radiology Staff ONLY" aspirin 0 Refill(s) No Longer [facility] Active 2013 [facility] Saline Flush 10 mL, Route: No Longer [facility] 0.9% IVP, Drug Form: Active 2013 [facility] INJ, kg, PRN, PRN [place] Flush, Start date: 07/02/14 21:34:00, Duration: 30 day, Stop date: 08/01/14 20:33:00Notes: (Same as: BD Posiflush) Allergies, Adverse Reactions, Alerts Substance Category Reaction Severity Reaction Status Date Comments Source type Reported sulfa drugs Assertion Drug Active [facility] Immunizations Immunization Date Given Site Status Last Comments Source Updated pneumococcal 07/04/2014 Left completed [facility] 23-valent vaccine [facility] influenza virus 07/04/2014 Right completed [facility] vaccine, [facility] Center Results Order Name Results Value Reference Date Interpretation Comments Source Range URINE AND Occult Bld Negative Negative 07/07 [facility] STOOL St[facility] (07/07/14 3:42 PM) Center ELECTROLYTE AGAP 14.5 meq/L 10.0 - 07/07 [facility] S 20.0 [facility] ELECTROLYTE Potassium Lvl 4.5 meq/L 3.5 - 5.1 07/07 [facility] S [facility] ELECTROLYTE Sodium Lvl 142 meq/L 135 - 145 07/07 [facility] S [facility] ELECTROLYTE Calcium Lvl 8.6 mg/dL 8.5 - 10.5 07/07 [facility] S [facility] ELECTROLYTE CO2 22 meq/L 24 - 32 07/07 [facility] S [facility] ELECTROLYTE Chloride Lvl 110 meq/L 95 - 109 07/07 [facility] S [facility] ELECTROLYTE eGFR 58 07/07 1Result Comment: The eGFR is calculated using the CKD-EPI formula. In most young, healthy individuals the eGFR will be > 90 mL/min/1.73m2. The eGFR declines with age. An eGFR of 60-89 may be normal in [facility] mL/min/1. some populations, particularly the elderly, for whom the CKD-EPI formula has not been extensively validated. Use of the eGFR is not recommended in the following populations: [address] Individuals with unstable creatinine concentrations, including [...] Creatinine 1.0 mg/dL 0.5 - 1.4 07/07 [facility] Lvl [facility] ELECTROLYTE BUN 23 mg/dL 7 - 07/07 [facility] S [facility] ELECTROLYTE Glucose Lvl 97 mg/dL 70 - 99 07/07 4Interpretive Data: Adult reference range values reflect the clinical guidelines [facility] of the [employer]. [facility] HEMATOLOGY PT 12.7 s 12.0 - 07/07 [facility] . [facility] HEMATOLOGY INR 0.95 0.85 - 07/07 10Interpretive Data: RECOMMENDED RANGES FOR PROTIME INR: [facility] 1.17 2.0-3.0 for most medical and surgical thromboembolic states. Medical 2.5-3.5 for artificial heart valves and recurrent embolism. Center INR SHOULD BE USED ONLY FOR PATIENTS ON STABLE ANTICOAGULANT THERAPY. HEMATOLOGY RDW 13.8 % 11.5 - 07/07 [place] 14.5 [facility] HEMATOLOGY RBC 3.59 M/CMM 4.20 - 07/07 [place] 5.40 [facility] HEMATOLOGY WBC 12.1 K/CMM 3.7 - 10.4 07/07 [facility] HEMATOLOGY Hgb 11.5 g/dL 12.0 - 07/07 [place] 16.0 [facility] HEMATOLOGY Hct 36.0 % 36.0 - 07/07 [place] 48.0 [facility] HEMATOLOGY MCV 100.3 fL 80.0 - 07/07 [place] 98.0 /2013 [facility] HEMATOLOGY MCH 32.0 pg 27.0 - 07/07 [place] 31.0 [facility] HEMATOLOGY MCHC 31.9 g/dL 32.0 - 07/07 36.0 [facility] HEMATOLOGY MPV 11.4 fL 7.4 - 10.4 07/07 [facility] HEMATOLOGY Platelet 175 K/CMM 133 - 450 07/07 [facility] HEMATOLOGY Monocytes 14.9 % 2.0 - 12.0 07/07 [facility] HEMATOLOGY Eosinophils 3.5 % 0.0 - 4.0 07/07 [facility] HEMATOLOGY Basophils 0.4 % 0.0 - 1.0 07/07 [facility] HEMATOLOGY Lymphocytes # 3.9 K/CMM 1.0 - 5.5 07/07 [facility] HEMATOLOGY Monocytes # 1.8 K/CMM 0.0 - 0.8 07/07 [facility] HEMATOLOGY Segs-Bands # 5.9 K/CMM 1.5 - 8.1 07/07 [facility] HEMATOLOGY Eosinophils # 0.4 K/CMM 0.0 - 0.5 07/07 [facility] HEMATOLOGY Macrocyte 1+ None Seen 07/07 Medical *ABN* Center (07/07/14 1:00 AM) HEMATOLOGY Lymphocytes 32.6 % 20.0 - 07/07 [facility] 40.0 /2013 [facility] HEMATOLOGY Segs 48.6 % 45.0 - 07/07 [facility] 75.0 /2013 [facility] HEMATOLOGY PT 13.9 s 12.0 - 07/07 [facility] 14.7 [facility] HEMATOLOGY INR 1.07 0.85 - 07/07 11Interpretive Data: RECOMMENDED RANGES FOR PROTIME INR: [facility] 1. 2.0-3.0 for most medical and surgical thromboembolic states. Medical 2.5-3.5 for artificial heart valves and recurrent embolism. Center INR SHOULD BE USED ONLY FOR PATIENTS ON STABLE ANTICOAGULANT THERAPY. HEMATOLOGY PTT 35.0 s 22.9 - 07/07 13Interpretiv [facility] 35.8 e Data: [facility] Therapeutic Range: 57 - 92 Seconds ANEMIA Folate Lvl 14.3 ng/mL >=3.0 07/06 [facility] STUDY ng/mL [facility] ANEMIA Vitamin B12 908 pg/mL 254 - 1320 07/06 [facility] STUDY Lvl [facility] ANEMIA UIBC 245 ug/dl 110 - 370 07/06 [facility] ANEMIA % Satur Fe 18 % 12 - 57 07/06 [facility] ANEMIA Iron 52 ug/dl 30 - 160 07/06 [facility] ANEMIA TIBC 297 ug/dl 228 - 428 07/06 [facility] ANEMIA Transferrin 227 mg/dL 212 - 360 07/06 [facility] HEMATOLOGY Monocytes 15.2 % 2.0 - 12.0 07/06 [facility] HEMATOLOGY Eosinophils # 0.3 K/CMM 0.0 - 0.5 07/06 [facility] HEMATOLOGY Monocytes # 1.6 K/CMM 0.0 - 0.8 07/06 [facility] HEMATOLOGY Basophils 0.4 % 0.0 - 1.0 07/06 [facility] HEMATOLOGY Eosinophils 3.2 % 0.0 - 4.0 07/06 [facility] HEMATOLOGY Lymphocytes # 3.4 K/CMM 1.0 - 5.5 07/06 [facility] HEMATOLOGY Segs-Bands # 5.3 K/CMM 1.5 - 8.1 07/06 [facility] HEMATOLOGY Segs 49.6 % 45.0 - 07/06 75.0 [facility] HEMATOLOGY Plt Morph Normal 07/06 [facility] (07/06/14 2:30 AM) [facility] HEMATOLOGY Lymphocytes 31.6 % 20.0 - 07/06 40. [facility] HEMATOLOGY RBC Morph Normal 07/06 [facility] (07/06/14 2:30 AM) Center HEMATOLOGY WBC 10.6 K/CMM 3.7 - 10.4 07/06 [facility] HEMATOLOGY MCV 97.8 fL 80.0 - 07/06 98.0 [facility] HEMATOLOGY Hct 37.0 % 36.0 - 07/06 48. [facility] HEMATOLOGY Hgb 12.1 g/dL 12.0 - 07/06 16. [facility] HEMATOLOGY RBC 3.78 M/CMM 4.20 - 07/06 [place] 5. [facility] HEMATOLOGY MCHC 32.8 g/dL 32.0 - 07/06 [place] 36.0 [facility] HEMATOLOGY MCH 32.1 pg 27.0 - 07/06 [place] 31.0 [facility] HEMATOLOGY RDW 13.9 % 11.5 - 07/06 14. [facility] HEMATOLOGY MPV 12.2 fL 7.4 - 10.4 07/06 [facility] HEMATOLOGY Platelet 167 K/CMM 133 - 450 07/06 [facility] CARDIAC Troponin-T null 0.000 - 07/05 [place] ENZYMES 0.100 [facility] CARDIAC Total CK 123 unit/L 12 - 191 07/05 ENZYMES [facility] CARDIAC Troponin-I 0.02 ng/mL 0.00 - 07/05 [facility] ENZYMES 0.40 [facility] CARDIAC CK MB Index 1.0 0.0 - 2.5 07/05 ENZYMES [facility] CARDIAC CK MB 1.2 ng/mL 0.5 - 3.6 07/05 [facility] HEMATOLOGY Basophils 0.7 % 0.0 - 1.0 07/05 [facility] HEMATOLOGY Eosinophils 2.4 % 0.0 - 4.0 07/05 [facility] HEMATOLOGY Segs-Bands # 5.3 K/CMM 1.5 - 8.1 07/05 [facility] HEMATOLOGY Lymphocytes # 2.1 K/CMM 1.0 - 5.5 07/05 [facility] HEMATOLOGY Monocytes # 1.4 K/CMM 0.0 - 0.8 07/05 [facility] HEMATOLOGY Eosinophils # 0.2 K/CMM 0.0 - 0.5 07/05 [facility] HEMATOLOGY Basophils # 0.1 K/CMM 0.0 - 0.2 07/05 [facility] HEMATOLOGY Segs 58.2 % 45.0 - 07/05 [place] 75.0 [facility] HEMATOLOGY Monocytes 15.5 % 2.0 - 12.0 07/05 [facility] HEMATOLOGY Lymphocytes 23.2 % 20.0 - 07/05 [place] 40.0 [facility] HEMATOLOGY MCHC 33.0 g/dL 32.0 - 07/05 36.0 [facility] HEMATOLOGY RDW 14.0 % 11.5 - 07/05 [facility] [place] 14. [facility] HEMATOLOGY WBC 9.1 K/CMM 3.7 - 10.4 07/05 [facility] HEMATOLOGY RBC 3.13 M/CMM 4.20 - 07/05 5.40 [facility] HEMATOLOGY Hgb 10.1 g/dL 12.0 - 07/05 16.0 [facility] HEMATOLOGY Platelet 142 K/CMM 133 - 450 07/05 [facility] HEMATOLOGY MPV 12.1 fL 7.4 - 10.4 07/05 [facility] HEMATOLOGY Hct 30.7 % 36.0 - 07/05 48.0 [facility] HEMATOLOGY MCH 32.3 pg 27.0 - 07/05 31.0 [facility] HEMATOLOGY MCV 98.0 fL 80.0 - 07/05 [facility] 98.0 [facility] HEMATOLOGY Basophils # 0.1 K/CMM 0.0 - 0.2 07/05 [facility] CHEM PANEL Magnesium Lvl 1.6 mg/dL 1.8 - 2.4 07/05 [facility] CHEM PANEL Phosphorus 3.7 mg/dL 2.5 - 4.5 07/05 [facility] CHEM PANEL eGFR 76 07/05 2Result Comment: The eGFR is calculated using the CKD-EPI formula. In most young, healthy individuals the eGFR will be >90 mL/ min/1.73m2. The eGFR declines with age. An eGFR of 60-89 may be normal in [facility] mL/min/1.7 some populations, particularly the elderly, for whom the CKD-EPI formula has not been extensively validated. Use of the eGFR is not recommended in the following populations: [address] Individuals with unstable creatinine concentrations, including [...] CO2 25 meq/L 24 - 32 07/05 [facility] CHEM PANEL Calcium Lvl 8.3 mg/dL 8.5 - 10.5 07/05 [facility] Center CHEM PANEL Sodium Lvl 145 meq/L 135 - 145 07/05 [facility] CHEM PANEL BUN 15 mg/dL 7 - 22 07/05 [facility] CHEM PANEL Creatinine 0.8 mg/dL 0.5 - 1.4 07/05 [facility] CHEM PANEL Chloride Lvl 112 meq/L 95 - 109 07/05 [facility] CHEM PANEL Potassium Lvl 4.5 meq/L 3.5 - 5.1 07/05 [facility] CHEM PANEL Glucose Lvl 89 mg/dL 70 - 99 07/05 5Interpretive Data: Adult reference range values reflect the clinical guidelines of the [employer] [employer]. [facility] Center CHEM PANEL AGAP 12.5 meq/L 10.0 - 07/05 . [facility] DRUG SCREEN U Phencyc Scr Negative Negative 07/05 Medical *NA* [facility] (07/04/14 7:50 PM) DRUG SCREEN UDS Note [...] SCREEN U Cocaine Scr Negative Negative 07/05 [facility] *NA* Center (07/04/14 7:50 PM) DRUG SCREEN U Opiate Scr Negative Negative 07/05 [facility] *NA* Center (07/04/14 7:50 PM) DRUG SCREEN U Amph Scr Negative Negative 07/05 [facility] *NA* Center (07/04/14 7:50 PM) URINE AND UA <=1.0 0.1 - 1.0 07/05 [facility] Urobilinogen mg/dL [facility] [facility] URINE AND UA RBC 1 /HPF 0 - 2 07/05 [facility] URINE AND UA Mucus Few /LPF None Seen 07/05 [place] STOOL /LPF [facility] URINE AND UA Hyal Cast 1 /LPF 0 - 2 07/05 [facility] URINE AND UA WBC 9 /HPF 0 - 5 07/05 [facility] URINE AND UA Glucose Negative Negative 07/05 [facility] mg/dL mg/dL [facility] URINE AND UA Ketones Negative Negative 07/05 [facility] mg/dL mg/dL [facility] URINE AND UA pH 5.0 5.0 - 8.0 07/05 [facility] URINE AND UA Protein Negative Negative 07/05 [facility] mg/dL mg/dL [facility] URINE AND UA Spec Grav 1.010 <=1.030 07/05 [facility] URINE AND UA Leuk Est Moderate Negative 07/05 [facility] *ABN* Center (07/04/14 7:50 PM) URINE AND UA Sq Epi Few /LPF Few /LPF 07/05 [facility] URINE AND UA Bili Negative Negative 07/05 [facility] Medical *NA* [facility] (07/04/14 7:50 PM) URINE AND UA Blood Negative Negative 07/05 [facility] (07/04/14 7:50 PM) Center URINE AND UA Nitrite Negative Negative 07/05 [facility] (07/04/14 7:50 PM) Center URINE AND UA Color Yellow Yellow 07/05 [facility] Medical *NA* Center (07/04/14 7:50 PM) URINE AND UA Turbidity Clear Clear 07/05 [facility] (07/04/14 7:50 PM) [facility] CHEM PANEL Lactic Acid 1.0 mMol/L 0.5 - 2.2 07/04 [facility] CHEM PANEL Globulin 2.5 g/dL 2.0 - 4.0 07/04 [facility] CHEM PANEL A/G Ratio 1.3 0.7 - 1.6 07/04 [facility] CHEM PANEL Bili Indirect 0.3 mg/dL 0.0 - 1.0 07/04 [facility] CHEM PANEL Total Protein 5.7 g/dL 6.4 - 8.4 07/04 [facility] CHEM PANEL Alk Phos 61 unit/L 39 - 136 07/04 [facility] CHEM PANEL Albumin Lvl 3.2 g/dL 3.5 - 5.0 07/04 [facility] CHEM PANEL ALT 21 unit/L 0 - 65 07/04 [facility] CHEM PANEL AST 16 unit/L 0 - 37 07/04 [facility] CHEM PANEL Bili Direct 0.1 mg/dL 0.0 - 0.3 07/04 [facility] CHEM PANEL Bili Total 0.4 mg/dL 0.2 - 1.3 07/04 [facility] CHEM PANEL Phosphorus 3.3 mg/dL 2.5 - 4.5 07/04 [facility] CHEM PANEL Magnesium Lvl 1.8 mg/dL 1.8 - 2.4 07/04 [facility] CHEM PANEL eGFR 66 07/04 3Result Comment: The eGFR is calculated using the CKD-EPI formula. In most young, healthy individuals the eGFR will be >90 mL/ min/1.73m2. The eGFR declines with age. An eGFR of 60-89 may be normal in [facility] mL/min/1. some populations, particularly the elderly, for whom the CKD-EPI formula has not been extensively validated. Use of the eGFR is not recommended in the following populations: [place] [id number] Center Individuals with unstable creatinine concentrations, including [...] AGAP 11.5 meq/L 10.0 - 07/04 20.0 [facility] CHEM PANEL Calcium Lvl 8.3 mg/dL 8.5 - 10.5 07/04 [facility] CHEM PANEL Sodium Lvl 144 meq/L 135 - 145 07/04 [facility] CHEM PANEL Potassium Lvl 4.5 meq/L 3.5 - 5.1 07/04 [facility] CHEM PANEL Chloride Lvl 113 meq/L 95 - 109 07/04 [facility] CHEM PANEL CO2 24 meq/L 24 - 32 07/04 [facility] CHEM PANEL Glucose Lvl 107 mg/dL 70 - 99 07/04 6Interpretive Data: Adult reference range values reflect the clinical guidelines of the [place] [employer]. [facility] CHEM PANEL BUN 12 mg/dL 7 - 22 07/04 [facility] CHEM PANEL Creatinine 0.9 mg/dL 0.5 - 1.4 07/04 [facility] HEMATOLOGY INR 1.14 0.85 - 07/04 12Interpretive Data: RECOMMENDED RANGES FOR PROTIME INR: [facility] . 2.0-3.0 for most medical and surgical thromboembolic states. Medical 2.5-3.5 for artificial heart valves and recurrent embolism. Center INR SHOULD BE USED ONLY FOR PATIENTS ON STABLE ANTICOAGULANT THERAPY. HEMATOLOGY PTT 26.0 s 22.9 - 07/04 14Interpretiv [facility] 35.8 2014 e Data: [facility] Therapeutic Range: 57 - 92 Seconds HEMATOLOGY PT 14.7 s 12.0 - 07/04 [facility] 14.7 [facility] PARATHYROID Ca Norm WB 1.06 1.05 - 07/04 [facility] PROFILE mMol/L . [facility] PARATHYROID Ca Ion WB 1.06 1.05 - 07/04 [facility] PROFILE mMol/L . [facility] DRUG SCREEN UDS Note See Note 9 07/03 9Interpretive Data: Drugs reported as positive have not been confirmed by a second method and should be used for medical purposes only. To order Medical *NA* confirmation, contact laboratory. [facility] (07/03/14 10:50 AM) note: Below are cut-off [...] SCREEN U Opiate Scr Negative Negative 07/03 [facility] (07/03/14 10:50 AM) DRUG SCREEN U Phencyc Scr Negative Negative 07/03 [facility] *NA* [facility] (07/03/14 10:50 AM) DRUG SCREEN U Cocaine Scr Negative Negative 07/03 [facility] (07/03/14 10:50 AM) DRUG SCREEN U Benzodia Negative Negative 07/03 [facility] *NA* [facility] (07/03/14 10:50 AM) DRUG SCREEN U Cannab Scr Negative Negative 07/03 [facility] (07/03/14 10:50 AM) DRUG SCREEN U Amph Scr Negative Negative 07/03 [facility] *NA* [facility] (07/03/14 10:50 AM) DRUG SCREEN U Shauna Scr Negative Negative 07/03 [facility] *NA* [facility] (07/03/14 10:50 AM) LIPIDS CHD Risk 1.95 3.90 - 07/03 [place] 5.80 /2013 [facility] LIPIDS VLDL 8 07/03 [facility] LIPIDS LDL 72 mg/dL <=99 mg/dL 07/03 [place] (Calculated) [facility] LIPIDS Trig 42 mg/dL <=149 07/03 [place] mg/dL [facility] LIPIDS Chol 164 mg/dL <=199 07/03 [place] mg/dL [facility] LIPIDS HDL 84 mg/dL >=61 mg/dL 07/03 7Result Comment: Medical Specimen Center Slightly Hemolyzed. SPECIAL Hgb A1C 4.9 % <=5.6 % 07/03 [facility] CHEMISTRY [facility] URINE AND UA <=1.0 0.1 - 1.0 07/03 [facility] Urobilinogen mg/dL [facility] URINE AND UA Bacteria Occasional None Seen 07/03 [facility] STOOL /HPF /HPF /2013 [facility] URINE AND UA Mucus Few /LPF None Seen 07/03 [facility] STOOL /LPF [facility] URINE AND UA Amorph Occasional None Seen 07/03 [facility] STOOL Christin /HPF /HPF [facility] URINE AND UA Sq Epi Occasional Few /LPF 07/03 [facility] /LPF [facility] URINE AND UA WBC 4 /HPF 0 - 5 07/03 [facility] URINE AND UA Nitrite Negative Negative 07/03 [facility] (07/03/14 10:50 AM) [facility] URINE AND UA Blood Negative Negative 07/03 [facility] (07/03/14 10:50 AM) [facility] URINE AND UA Ketones Negative Negative 07/03 [facility] mg/dL mg/dL [facility] URINE AND UA RBC 2 /HPF 0 - 2 07/03 [facility] URINE AND UA Leuk Est Negative Negative 07/03 [facility] (07/03/14 10:50 AM) [facility] URINE AND UA Color Light Yellow Yellow 07/03 [facility] *NA* [facility] (07/03/14 10:50 AM) URINE AND UA pH 5.0 5.0 - 8.0 07/03 [facility] URINE AND UA Bili Negative Negative 07/03 [facility] Medical *NA* [facility] (07/03/14 10:50 AM) URINE AND UA Glucose Negative Negative 07/03 [facility] mg/dL mg/dL [facility] URINE AND UA Turbidity Slight Clear 07/03 [facility] *ABN* [facility] (07/03/14 10:50 AM) URINE AND UA Spec Grav 1.007 <=1.030 07/03 [facility] URINE AND UA Protein Negative Negative 07/03 [facility] mg/dL mg/dL [facility] BACTERIAL - MRSA by PCR Negative 16 07/03 16Interpretive Data: Interpretive Data: The Kerri LightCycler MRSA assay is a qualitative test for the direct detection of nasal colonization with methicillin-resistant Staphylococcus aureus (MRSA) to aid [facility] in the prevention and control of MRSA infections in healthcare settings. A positive result does not indicate an infection or require treatment. A negative result does not exclude colonization or infection. [facility] (07/03/14 3:11 AM) Center The polymerase chain reaction (PCR) assay detects a proprietary sequence indicative of the integration of the SCCmec cassette into the Staphylococcus aureus chromosome, indicating the presence of MRSA D NA. The assay utilizes FDA cleared IVD reagents. Performance characteristics have been verified by the Molecular Diagnostic Laboratory within the [facility]. The Molecular Diagnostic Labor atory is authorized under the Clinical Laboratory Improvement Amendment of 1988 (CLIA-88) to perform high complexity testing. CARDIAC Troponin-I null 0.00 - 07/03 [facility] ENZYMES 0.40 [facility] CARDIAC Total CK 51 unit/L 12 - 191 07/03 [facility] CHEM PANEL Phosphorus 2.8 mg/dL 2.5 - 4.5 07/03 [facility] CHEM PANEL Magnesium Lvl 1.7 mg/dL 1.8 - 2.4 07/03 [facility] CHEM PANEL Total Protein 5.6 g/dL 6.4 - 8.4 07/03 [facility] CHEM PANEL Albumin Lvl 3.0 g/dL 3.5 - 5.0 07/03 [facility] CHEM PANEL Globulin 2.6 g/dL 2.0 - 4.0 07/03 [facility] CHEM PANEL A/G Ratio 1.2 0.7 - 1.6 07/03 [facility] CHEM PANEL ALT 26 unit/L 0 - 65 07/03 [facility] CHEM PANEL Alk Phos 66 unit/L 39 - 136 07/03 [facility] CHEM PANEL AST 18 unit/L 0 - 37 07/03 [facility] CHEM PANEL Bili Indirect 0.1 mg/dL 0.0 - 1.0 07/03 [facility] CHEM PANEL Bili Total 0.2 mg/dL 0.2 - 1.3 07/03 [facility] CHEM PANEL Bili Direct 0.1 mg/dL 0.0 - 0.3 07/03 [facility] HEMATOLOGY PTT 28.0 s 22.9 - 07/03 15Interpretiv [place] 35.8 e Data: [facility] Therapeutic Range: 57 - 92 Seconds PARATHYROID Ca Norm WB 1.01 1.05 - 07/03 [facility] PROFILE mMol/L 1. [facility] PARATHYROID Ca Ion WB 1.04 1.05 - 07/03 [facility] PROFILE mMol/L 1.25 [facility] CARDIAC Troponin-T 0.031 0.000 - 07/03 [facility] ENZYMES ng/mL 0.100 [facility] BLOOD BANK Antibody Scrn Negative 07/03 [facility] RESULTS [facility] (07/02/14 11:20 PM) [facility] BLOOD BANK ABO/Rh O POS 07/03 [facility] RESULTS [facility] CARDIAC Troponin-I null 0.00 - 07/03 [facility] ENZYMES 0.40 [facility] CARDIAC Total CK 59 unit/L 12 - 191 07/03 [facility] ENZYMES [facility] CARDIAC CK MB 0.7 ng/mL 0.5 - 3.6 07/03 [facility] ENZYMES [facility] CARDIAC CK MB Index 1.2 0.0 - 2.5 07/03 [facility] ENZYMES [facility] HEMATOLOGY Basophils # 0.0 K/CMM 0.0 - 0.2 07/03 [facility] HEMATOLOGY RBC Morph Normal 07/03 [facility] (07/02/14 10:15 PM) [facility] HEMATOLOGY Plt Morph Normal 07/03 [facility] (07/02/14 10:15 PM) [facility] CHEM PANEL POC 1.2 mg/dL 0.5 - 1.4 07/03 [facility] Creatinine [facility] Vital Signs Vital Sign Value Date Comments Source Systolic (mm Hg) 147 07/08/2014 [facility] Respitory Rate 35 07/08/2014 [facility] Diastolic (mm Hg) 74 07/08/2014 [facility] Respitory Rate 22 07/07/2014 [facility] Diastolic (mm Hg) 68 07/07/2014 [facility] Respitory Rate 20 07/07/2014 [facility] Systolic (mm Hg) 126 07/07/2014 [facility] Diastolic (mm Hg) 75 07/07/2014 [facility] Systolic (mm Hg) 118 07/07/2014 [facility] Heart Rate 69 07/04/2014 [facility] Heart Rate 72 07/04/2014 [facility] Heart Rate 67 07/04/2014 [facility] Height 162.56 cm 07/03/2014 [facility] Weight 83 07/03/2014 [facility] BMI Calculated 31.41 07/03/2014 [facility] Height 162.56 cm 07/03/2014 [facility] Weight 83 07/03/2014 [facility] BMI Calculated 31.41 07/03/2014 [facility] Temperature Oral (F) 97.0 F 07/03/2014 [facility] Temperature Oral (F) 97.9 F 07/03/2014 [facility] BMI Calculated 30.1 07/03/2014 [facility] Weight 79.545 07/03/2014 [facility] Height 162.56 cm 07/03/2014 [facility] Encounters Location Location Encounter Encounter Reason Attending ADM DC Status Source Details Type Number For Provider Date Date Visit [facility] [id number] [facility] 07/03 07/08 [facility] [place] /2013 [facility] Outpatient [id number] SONIA 12/15 Active [facility] [place] Outpatient [id number] SONIA 03/16 Active [facility] [place] Out[facility] [id number] SONIA 07/20 Active [facility] [place] Procedures Procedure Code Date Perfomer Comments Source Splenectomy [id number] [facility]
[2018-05-17] MEDS ORDERED: VANCOMYCIN 1 GM/250 ML BAG ONE (11:20)
[2018-05-17 11:26] LABS: MCH 32.1 pg (27.0-35.0); MCV 95.9 fL (80-100); MPV 10.8 fL (7.6-11.3)
--- NOTE | 2018-05-17 11:40 | RAD REPORT ---
EXAM DESCRIPTION: RAD - Hand Right 3 View - 05/17/2018 11:34 am CLINICAL HISTORY: SWELLING COMPARISON: No comparisons FINDINGS: Soft tissue swelling is seen along the dorsal aspect of the hand with a small soft tissue wound seen. No fracture identified. No radiopaque foreign body. No finding suspicious for osteomyelit is at this time. No subcutaneous gas.
[2018-05-17 11:41] LABS: Albumin 4.2 g/dL (3.4-5.0); Bilirubin Total 0.6 mg/dL (0.2-1.0); Potassium 4.3 mmol/L (3.5-5.1)
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
--- NOTE | 2018-05-17 11:50 | ER ---
Nurse's Notes [facility] Name: Ning Coffey Age: 72 yrs Sex: Female : 1945 Arrival Date: 05/17/2018 Time: 10:17 Bed 19 Private MD: Reddy Francois Diagnosis: Cellulitis and acute lymphangitis of other parts of limb Presentation: 05/17 10:22 Presenting complaint: Patient states: "I was seen here yesterday and they told me to go aa5 see the hand doctor but this morning my hand is way more swollen". pt c/o redness and swelling to right hand. Transition of care: patient was not received from another setting of care. Onset of symptoms was May 17, 2018. Risk Assessment: Do you want to hurt yourself or someone else? Patient reports no desire to harm self or others. Initial Sepsis Screen: Does the patient meet any 2 criteria? No. Patient's initial sepsis screen is negative. Does the patient have a suspected source of infection? No. Patient's initial sepsis screen is negative. Care prior to arrival: None. 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 - Social history:: Smoking status: Patient/guardian denies using tobacco, Patient/guardian denies using alcohol, street drugs, The patient lives with family. - Ebola Screening: : No symptoms or risks identified at this time. - Family history:: not pertinent. Screenin:20 Abuse screen: Denies threats or abuse. Denies injuries from another. Nutritional jl7 screening: No deficits noted. Tuberculosis screening: No symptoms or risk factors identified. Fall Risk IV access (20 points). Assessment: 10:23 General: Appears in no apparent distress. uncomfortable, Behavior is calm, cooperative, jl7 appropriate for age. Pain: Complains of pain in right hand Pain currently is 2 out of 10 on a pain scale. Neuro: Level of Consciousness is awake, alert, obeys commands, Oriented to person, place, time, situation. Cardiovascular: Patient's skin is warm and dry. Respiratory: Airway is patent Respiratory effort is even, unlabored, Respiratory pattern is regular, symmetrical. GI: No signs and/or symptoms were reported involving the gastrointestinal system. : No signs and/or symptoms were reported regarding the genitourinary system. EENT: No signs and/or symptoms were reported regarding the EENT system. Derm: Skin is pink, warm \\T\\ dry. abrasion, swelling and redness noted to right hand. Musculoskeletal: Swelling present in right hand. 11:30 Reassessment: No changes from previously documented assessment. Patient and/or family jl7 updated on plan of care and expected duration. Pain level reassessed. Patient is alert, oriented x 3, equal unlabored respirations, skin warm/dry/pink. 13:30 Reassessment: No changes from previously documented assessment. Patient and/or family jl7 updated on plan of care and expected duration. Pain level reassessed. Patient is alert, oriented x 3, equal unlabored respirations, skin warm/dry/pink. Vital Signs: 10:24 BP 133 / 95; Pulse 79; Resp 16 S; Temp 97.2(TE); Pulse Ox 100% on R/A; Weight 70.31 kg aa5 (R); Height 5 ft. 4 in. (162.56 cm) (R); Pain 0/10; 11:43 BP 151 / 86; Pulse 90; Resp 16 S; Pulse Ox 97% on R/A; jl7 13:25 BP 131 / 70; Pulse 81; Resp 16; Pulse Ox 96% ; jl7 10:24 Body Mass Index 26.61 (70.31 kg, 162.56 cm) aa5 ED Course: 10:17 Patient arrived in ED. rg4 10:17 Reddy Francois is Private Physician. rg4 10:23 Triage completed. aa5 10:23 Arm band placed on. aa5 10:23 Patient has correct armband on for positive identification. Placed in gown. Bed in low jl7 position. Call light in reach. Side rails up X 1. Pulse ox on. NIBP on. Warm blanket given. 10:28 Hermelindo De Luna MD is Attending Physician. ma2 10:30 Wendy Renteria, RN is Primary Nurse. jl7 10:45 Initial lab(s) drawn, by me, sent to lab. Urine collected: clean catch specimen, clear. jl7 Inserted saline lock: 20 gauge in left forearm, using aseptic technique. Blood collected. 11:09 Levon Azul DO is Hospitalizing Provider. ma2 11:34 Hand Right 3 View XRAY In Process Unspecified. EDMS 11:43 X-ray completed. Portable x-ray completed in exam room. Patient tolerated procedure mh1 well. 11:49 Hospitalizing Provider role handed off by Levon Azul DO [facility] 11:49 Reddy Carnes MD is Hospitalizing Provider. ma2 13:43 No provider procedures requiring assistance completed. Patient admitted, IV remains in jl7 place. intact, No redness/swelling at site. Administered Medications: 11:11 Drug: elevate hand 1 application Route: Topical; Site: affected area; 7 13:30 Follow up: Response: No adverse reaction jl7 11:32 Drug: vancoMYCIN 1 grams Route: IVPB; Infused Over: 2 hrs; Site: left forearm; jl7 13:30 Follow up: Response: No adverse reaction; IV Status: Completed infusion jl Outcome: 11:49 Decision to Hospitalize by Provider. ma2 13:43 Admitted to Med/surg accompanied by tech, family with patient, via wheelchair, room jl7 202, with chart, Report called to CHIDI Harrison 13:43 Condition: stable 13:43 Discharge instructions given to patient, family, Instructed on the need for admit, Demonstrated understanding of instructions. 13:54 Patient left the ED. jl7 Signatures: Dispatcher [employer] EDMS Lyric Patel 1 Lisa Howard, CHIDI RN claudine5 Cindi Hernandez 4 Wendy Renteria, CHIDI MURILLO jl7 Hermelindo De Luna MD MD tx2
[2018-05-17] MEDS ORDERED: ACETAMINOPHEN 325 MG TABLET PO PRN (14:07)
[2018-05-17 14:35] VITALS: BMI 25.7
--- NOTE | 2018-05-17 15:01 | P.HP ---
Certification for Inpatient Patient admitted to: Inpatient With expected LOS: >2 Midnights Patient will require the following post-hospital care: None Practitioner: I am a practitioner with admitting privileges, knowledge of patient current condition, hospital course, and medical plan of care. Services: Services provided to patient in accordance with Admission requirements found in Title 42 Section 412.3 of the Code of Federal Regulations Patient History Date of Service: 05/17/18 Reason for admission: right hand infected History of Present Illness: 72 y/o female who has right hand redness and pain for one week. Put some bacitracin without improvement, then she went to ER yesterday, and was given doxycyline. She took it one day, woke up this morning and her hand was worse. She has no ferver chills. She is not diabetic. Allergies Sulfa (Sulfonamide Antibiotics) Allergy (Verified 07/07/14 21:29) Shortness of breath Home Medications: Carbidopa/Levodopa [Carbidopa-Levodopa 25-100 Tab] 1 tab PO BID 05/17/18 Pantoprazole Sodium 1 tab PO DAILY 05/17/18 Rivaroxaban [Xarelto*] 1 tab PO DAILY AFTER SUPPER 05/17/18 - Past Medical/Surgical History Has patient received pneumonia vaccine in the past: Yes Diabetic: No -: HTN -: Parkinson's -: Stroke -: SPLENECTOMY -: Hysterectomy - Family History Brother -: Diabetes - Social History Smoking Status: Never smoker Alcohol use: Yes CD- Drugs: No Caffeine use: Yes Place of Residence: Home Review of Systems 10-point ROS is otherwise unremarkable Physical Examination - Vital Signs Temperature: 97.2 F Blood Pressure: 131/70 Pulse: 81 Respirations: 16 - Physical Exam General: Alert, In no apparent distress HEENT: Atraumatic, PERRLA, Mucous membr. moist/pink, EOMI, Sclerae nonicteric Neck: Supple, 2+ carotid pulse no bruit, No LAD, Without JVD or thyroid abnormality Respiratory: Clear to auscultation bilaterally, Normal air movement Cardiovascular: Regular rate/rhythm, Normal S1 S2 Gastrointestinal: Normal bowel sounds, No tenderness Musculoskeletal: No tenderness Integumentary: Other (erythema righ dorsal side hand) Neurological: Normal gait, Normal speech, Normal strength at 5/5 x4 extr, Normal tone, Normal affect Lymphatics: No axilla or inguinal lymphadenopathy - Studies Laboratory Data (last 24 hrs) 05/17/18 11:06: Sodium 144, Potassium 4.3, BUN 18, Creatinine 1.00, Glucose 97, Total Bilirubin 0.6, AST 22, ALT 24, Alkaline Phosphatase 77 05/17/18 11:06: WBC 7.6, Hgb 15.4 H, Hct 46.0 H, Plt Count 283 Assessment and Plan - Problems (Diagnosis) (1) Cellulitis and abscess of hand, except fingers and thumb Current Visit: Yes Status: Acute (2) Cerebral infarction involving right middle cerebral artery Onset Date: 07/10/14 Current Visit: No Status: Acute (3) Dyslipidemia Onset Date: 07/10/14 Current Visit: No Status: Acute - Plan --Vanc and Zosyn --Cons Hand surgery --On Xarelto - Advance Directives Does patient have a Living Will: No Does patient have a Durable POA for Healthcare: Yes
[2018-05-17] MEDS ORDERED: VANCOMYCIN 250 MG in NA CHLORIDE 0.9% 100 ML IVPB ONE (16:00)
[2018-05-17] MEDS: DIPHENHYDRAMINE 25 MG TAB/CAP PO PRN (16:49)
[2018-05-17] MEDS: RIVAROXABAN 15 MG TABLET PO SCH (16:49)
[2018-05-17] MEDS: PIPER/TAZO/NS 3.375gm 3.375 GM/100 ML BAG IV SCH (16:49)
[2018-05-17 17:01] LABS: Urine Appearance CLEAR; Urine Bilirubin NEGATIVE (NEG); Urine Blood TRACE (NEG); Urine Color YELLOW; Urine Glucose NEGATIVE (NEG); Urine Protein NEGATIVE (NEG); Urine Specific Gravity 1.015 (1.005-1.030); Urine Urobilinogen 0.2 mg/dL (0.2-1.0); Urine pH 5.5 (5.0-7.0)
[2018-05-17 17:03] LABS: Urine Microscopic Reflex ORDER UMIC
[2018-05-17 17:14] LABS: Urine Bacteria <20 /HPF (<20); Urine Culture Reflex Order NOT NEEDED
[2018-05-17] MEDS ORDERED: PIPER/TAZO/NS 3.375gm 100 ML IV SCH (18:00)
[2018-05-17] MEDS: ATORVASTATIN 20 MG TAB PO SCH (20:50)
[2018-05-17] MEDS: CARBIDOPA/LEVODOPA 25/100 TAB PO SCH (20:50)
[2018-05-17] MEDS ORDERED: HYDROCORTISONE SUC 100 MG INJ IV ONE (20:53)
[2018-05-17] MEDS ORDERED: DIPHENHYDRAMINE 50 MG/ML VIAL IV ONE (20:53)
[2018-05-17] MEDS ORDERED: VANCOMYCIN 1GM/D5W 200 ML IV SCH (21:00)
[2018-05-18] MEDS: PIPER/TAZO/NS 3.375gm 3.375 GM/100 ML BAG IV SCH ×3 (00:58→18:43)
[2018-05-18] MEDS: DIPHENHYDRAMINE 25 MG TAB/CAP PO PRN (04:58)
[2018-05-18] MEDS: CARBIDOPA/LEVODOPA 25/100 TAB PO SCH ×3 (09:03→21:27)
[2018-05-18] MEDS: PANTOPRAZOLE 40MG TABLET PO SCH (09:03)
[2018-05-18] MEDS ORDERED: HYDROCORTISONE 1 % CREAM 30GM TOP PRN (10:10)
--- NOTE | 2018-05-18 14:29 | P.PN ---
Subjective Date of Service: 05/18/18 Chief Complaint: right hand infected Patient seen and examined at bedside with RN. Chart reviewed. Currently patient is doing much better than before. Patient was seen by ortho this morning who recommended wound dressing and no surgical procedure at this time. Continue IV antibiotics for next 24 hr. Review of Systems 10-point ROS is otherwise unremarkable Physical Examination - Vital Signs Temperature: 97.2 F Blood Pressure: 157/75 Pulse: 61 Respirations: 18 Pulse Ox (%): 93 - Physical Exam General: Alert, In no apparent distress HEENT: Atraumatic, PERRLA, EOMI Neck: Supple, JVD not distended Respiratory: Clear to auscultation bilaterally, Normal air movement Cardiovascular: Regular rate/rhythm, Normal S1 S2 Gastrointestinal: Normal bowel sounds, No tenderness Musculoskeletal: Erythema, Tenderness, Warmth, Other (A right and erythema and tenderness noted. Improved from before. Mild purulent discharge also noted as well.) Integumentary: No rashes Neurological: Normal speech, Normal tone, Normal affect Lymphatics: No axilla or inguinal lymphadenopathy - Studies Medications List Reviewed: Yes Assessment And Plan - Current Problems (Diagnosis) (1) Cellulitis and abscess of hand, except fingers and thumb Current Visit: Yes Status: Acute Plan: Cellulitis of the hand. Improving now -Ortho consulted. Reccs appreciated -IV vanc and zosyn -Wound culture pending -Wound care for now (2) Dyslipidemia Onset Date: 07/10/14 Current Visit: No Status: Chronic Discharge Plan: Home Plan to discharge in: 24 Hours - Code Status/Comfort Care Code Status Assessed: Yes Critical Care: No
--- NOTE | 2018-05-18 15:47 | CON ---
History Of Present Illness: The patient is a 72-year-old, white female, who is ambidexterous, using her left hand predominantly. She was walking 6 days ago, turned suddenly and actually hit her hand a nd lacerated the skin over the dorsum of the third metacarpal area, about 2 inch laceration. Over e ensuing days it became red and inflamed. She presented to the emergency room, was admitted. I am seeing her in consultation for open wound hand with cellulitis. Tetanus toxin about 5 years ago. Past Medical History: Previous medical problems, stroke. Past Surgical History: Previous surgery, splenectomy for unknown reason. Social History: Does not smoke. Drinks alcohol occasionally. Allergies: SHE IS ALLERGIC TO SULFA. Medications: See list. Physical Examination: General: She is 5 feet, 150 pounds. Examination of the dorsum hand has a v-shaped laceration approx imately 2 cm in length. Surrounding erythema. No abscess. Assessment: Laceration with surrounding cellulitis. Plan: Xeroform dressing change IV antibiotics and observation. CELI/INEZ Voice ID: [id number] Report ID: [id number]
[2018-05-18] MEDS: VANCOMYCIN 1.25 GM in NA CHLORIDE 0.9% 250 ML IVPB SCH (16:55)
[2018-05-18] MEDS: RIVAROXABAN 15 MG TABLET PO SCH (18:43)
[2018-05-18] MEDS: ATORVASTATIN 20 MG TAB PO SCH (21:00)
[2018-05-19] MEDS: DIPHENHYDRAMINE 25 MG TAB/CAP PO PRN (00:12)
[2018-05-19] MEDS: PIPER/TAZO/NS 3.375gm 3.375 GM/100 ML BAG IV SCH ×3 (01:00→17:17)
[2018-05-19] MEDS ORDERED: PIPER/TAZO/NS 3.375gm 3.375 GM/100 ML BAG IV SCH (04:00)
[2018-05-19] MEDS: PANTOPRAZOLE 40MG TABLET PO SCH (08:32)
[2018-05-19] MEDS: CARBIDOPA/LEVODOPA 25/100 TAB PO SCH ×2 (08:32→21:21)
--- NOTE | 2018-05-19 13:32 | P.PN ---
Subjective Date of Service: 05/19/18 Chief Complaint: right hand infected Patient seen and examined at bedside with RN. Chart reviewed. Currently patient is doing much better than before. hand swelling with minimal improvement today. Review of Systems 10-point ROS is otherwise unremarkable Physical Examination - Vital Signs Temperature: 97.0 F Blood Pressure: 151/67 Pulse: 51 Respirations: 18 Pulse Ox (%): 98 - Physical Exam General: Alert, In no apparent distress HEENT: Atraumatic, PERRLA, EOMI Neck: Supple, JVD not distended Respiratory: Clear to auscultation bilaterally, Normal air movement Cardiovascular: Regular rate/rhythm, Normal S1 S2 Gastrointestinal: Normal bowel sounds, No tenderness Musculoskeletal: Erythema, Tenderness, Warmth, Other (Right hand with minimal improvement since yesterday. Still having erythema and tenderness to the area. Nursing witnessed discharge noted this morning.) Neurological: Normal speech, Normal tone, Normal affect Lymphatics: No axilla or inguinal lymphadenopathy - Studies Microbiology Data (last 24 hrs): 05/18/18 01:30 Wound - Right Hand Gram Stain - Final Medications List Reviewed: Yes Assessment And Plan - Current Problems (Diagnosis) (1) Cellulitis and abscess of hand, except fingers and thumb Onset Date: 05/18/18 Current Visit: Yes Status: Acute Plan: Cellulitis of the hand. Improving now -Ortho consulted. Reccs appreciated -IV vanc and zosyn -Wound culture pending -Wound care for now (2) Dyslipidemia Onset Date: 07/10/14 Current Visit: No Status: Chronic - Plan Still awaiting clinical improvement at this time. Patient had minimal improvement today. Will continue IV antibiotics. Wound cultures are negative thus far however final results are still pending. Discharge Plan: Home Plan to discharge in: 24 Hours - Code Status/Comfort Care Code Status Assessed: Yes Critical Care: No
[2018-05-19] MEDS: DIPHENHYDRAMINE 25 MG TAB/CAP PO SCH ×2 (15:03→21:22)
[2018-05-19] MEDS: VANCOMYCIN 1.25 GM in NA CHLORIDE 0.9% 250 ML IVPB SCH (16:51)
[2018-05-19] MEDS: RIVAROXABAN 15 MG TABLET PO SCH (17:17)
--- NOTE | 2018-05-19 18:39 | PN ---
Subjective: The patient is afebrile. The hand has some discoloration. The elbow is nontender. Onl y area is near the dorsal thumb index finger web space. The laceration is over the middle and ring f gracie area dorsally near the metacarpal head. There, she has a dried blood on it with surrounding er ythema, and swelling is mild. She does have a blister between the middle and ring finger, approximately 0.5 cm in size. Assessment: . Plan: We will continue . We may need an MRI scan. CELI/INEZ Voice ID: [id number] Report ID: [id number]
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
[2018-05-19] MEDS ORDERED: VANCOMYCIN 250 MG in NA CHLORIDE 0.9% 100 ML IVPB SCH (21:00)
[2018-05-19] MEDS: ATORVASTATIN 20 MG TAB PO SCH ×2 (21:00→21:21)
[2018-05-19] MEDS ORDERED: NA CHLORIDE 0.9% 250 ML ONE (21:25)
[2018-05-20] MEDS: PIPER/TAZO/NS 3.375gm 3.375 GM/100 ML BAG IV SCH ×3 (02:50→16:16)
[2018-05-20] MEDS: DIPHENHYDRAMINE 25 MG TAB/CAP PO SCH ×4 (02:51→21:06)
[2018-05-20] MEDS: PANTOPRAZOLE 40MG TABLET PO SCH (08:29)
[2018-05-20] MEDS: CARBIDOPA/LEVODOPA 25/100 TAB PO SCH ×2 (08:29→21:06)
--- NOTE | 2018-05-20 12:20 | RAD REPORT ---
EXAM DESCRIPTION: MRI - Hand Right W/Cont - 05/20/2018 10:46 am CLINICAL HISTORY: right hand cellulitis COMPARISON: Hand Right 3 View dated 05/17/2018 FINDINGS: Skin thickening and subcutaneous edema is seen along the dorsum of the hand. The edema and fluid extends along the fingers extending along the base of the third, fourth and fifth fingers. The webspace of the fourth- fifth digit is involved. There is no evidence of osteomyelitis. No fracture is seen. No drainable abscess is seen. No significant extensor or flexor tenosynovitis. IMPRESSION: Skin thickening, subcutaneous edema and postcontrast enhancement is noted along the ulna r aspect of the dorsum of the hand extending to the base of the fingers. There is no evidence of unde rlying osteomyelitis or abscess seen.
--- NOTE | 2018-05-20 13:38 | P.PN ---
Subjective Date of Service: 05/20/18 Chief Complaint: right hand infected Patient seen and examined at bedside with RN. Chart reviewed. Showed improvement but minimal. Scheduled for MRI today to r.o Osteomyelitis Review of Systems 10-point ROS is otherwise unremarkable Physical Examination - Vital Signs Temperature: 97.6 F Blood Pressure: 137/65 Pulse: 71 Respirations: 18 Pulse Ox (%): 99 - Physical Exam General: Alert, In no apparent distress HEENT: Atraumatic, PERRLA, EOMI Neck: Supple, JVD not distended Respiratory: Clear to auscultation bilaterally, Normal air movement Cardiovascular: Regular rate/rhythm, Normal S1 S2 Gastrointestinal: Normal bowel sounds, No tenderness Musculoskeletal: Erythema, Tenderness, Warmth (Still With Swelling and Erythema. Serasanginous Discharge. ) Integumentary: No rashes Neurological: Normal speech, Normal tone, Normal affect Lymphatics: No axilla or inguinal lymphadenopathy - Studies Microbiology Data (last 24 hrs): 05/18/18 01:30 Wound - Right Hand Gram Stain - Final Medications List Reviewed: Yes Assessment And Plan - Current Problems (Diagnosis) (1) Cellulitis and abscess of hand, except fingers and thumb Onset Date: 05/18/18 Current Visit: Yes Status: Acute Plan: Cellulitis of the hand. Improving but Minimal -Ortho consulted. Reccs appreciated -ID consulted. Reccs Appreciated -MRI hand pending today -IV vanc and zosyn -Wound culture negative thus far -Awaiting Improvement for discharge (2) Dyslipidemia Onset Date: 07/10/14 Current Visit: No Status: Chronic - Plan Still awaiting clinical improvement at this time. Patient had minimal improvement today. Will continue IV antibiotics. Wound cultures are negative thus far however final results are still pending. MRI pending as well. Discharge Plan: Home Plan to discharge in: 48 Hours - Code Status/Comfort Care Code Status Assessed: Yes Critical Care: No
--- NOTE | 2018-05-20 14:06 | PN ---
Subjective: The patient's hand is unchanged. She says it is feeling better. The redness is still t here. The blistering between the fingers has ruptured spontaneously. The wound is unchanged. She h as no pain on palpation. I am going to order MRI scan of her hand today. She had a similar episode o f this in the past when bite by a dog. She also had fractured arm at time. Has had a breast reducti on. Concerned about perhaps some fat compromise. The hand is not healing as expected. ECLI/INEZ Voice ID: [id number] Report ID: [id number]
[2018-05-20] MEDS: RIVAROXABAN 15 MG TABLET PO SCH (16:17)
[2018-05-20] MEDS: ATORVASTATIN 20 MG TAB PO SCH (20:53)
[2018-05-20] MEDS ORDERED: VANCOMYCIN 1.5 GM in NA CHLORIDE 0.9% 500 ML IVPB SCH (21:00)
[2018-05-20] MEDS ORDERED: VANCOMYCIN 1.25 GM in NA CHLORIDE 0.9% 250 ML IVPB SCH (21:00)
[2018-05-21 00:43] VITALS: O2SAT 96
[2018-05-21] MEDS: DIPHENHYDRAMINE 25 MG TAB/CAP PO SCH ×2 (01:36→10:13)
[2018-05-21] MEDS: PIPER/TAZO/NS 3.375gm 3.375 GM/100 ML BAG IV SCH ×2 (01:36→10:13)
[2018-05-21] MEDS: CARBIDOPA/LEVODOPA 25/100 TAB PO SCH (10:13)
[2018-05-21] MEDS: PANTOPRAZOLE 40MG TABLET PO SCH (10:13)
[2018-05-21 12:50] VITALS: BP 145/85; TEMP 97
--- NOTE | 2018-05-21 14:48 | P.DS ---
Admission Date: 05/19/18 Discharge Date: 05/21/18 Disposition: ROUTINE DISCHARGE Discharge Condition: GOOD Reason for Admission: right hand infected Consultations: ortho - Problems (1) Cellulitis and abscess of hand, except fingers and thumb Onset Date: 05/18/18 Current Visit: Yes Status: Acute (2) Dyslipidemia Onset Date: 07/10/14 Current Visit: No Status: Chronic Brief History of Present Illness: 72 y/o female who has right hand redness and pain for one week. Put some bacitracin without improvement, then she went to ER yesterday, and was given doxycyline. She took it one day, woke up this morning and her hand was worse. She has no ferver chills. She is not diabetic. Hospital Course: Overall during the hospital stay patient remained stable The patient was initially admitted to the hospital for hand cellulitis was thought to have infection of the bone in that hand. MRI of the hand was done which was negative for any osteomyelitis. Orthopedic surgeon was consulted. Medical management was opted for the patient as patient is having active drainage and no purulent discharge was noted. Patient had marked improvement in her symptoms after 48-72 hr while here in the hospital with IV antibiotics. Patient then was switched over to oral antibiotics and discharged home under stable condition. Patient was asked to keep her arm in the sling. ID was also consulted here in the hospital for choice of antibiotics. ID recommended the patient be given p.o. doxycycline and thus patient is discharged home on p.o. doxycycline 100 mg b.i.d Vital Signs/Physical Exam: Temp Pulse Resp BP Pulse Ox 97.0 F 91 H 18 145/85 H 91 05/21/18 12:00 05/21/18 12:00 05/21/18 12:00 05/21/18 12:05/21/18 12:00 General: Alert, In no apparent distress HEENT: Atraumatic, PERRLA, EOMI Neck: Supple, JVD not distended Respiratory: Clear to auscultation bilaterally, Normal air movement Cardiovascular: Regular rate/rhythm, Normal S1 S2 Gastrointestinal: Normal bowel sounds, No tenderness Musculoskeletal: Erythema, Tenderness, Warmth Integumentary: No rashes Neurological: Normal speech, Normal tone, Normal affect Lymphatics: No axilla or inguinal lymphadenopathy Laboratory Data at Discharge: WBC 7.6 K/uL (4.3-10.9) 05/17/18 11:06 Hgb 15.4 g/dL (12.0-15.0) H 05/17/18 11:06 Hct 46.0 % (36.0-45.0) H 05/17/18 11:06 Plt Count 283 K/uL (152-406) 05/17/18 11:06 Sodium 144 mmol/L (136-145) 05/17/18 11:06 Potassium 4.3 mmol/L (3.5-5.1) 05/17/18 11:06 BUN 18 mg/dL (7-18) 05/17/18 11:06 Creatinine 1.00 mg/dL (0.55-1.3) 05/17/18 11:06 Glucose 97 mg/dL (74-106) 05/17/18 11:06 Total Bilirubin 0.6 mg/dL (0.2-1.0) 05/17/18 11:06 AST 22 U/L (15-37) 05/17/18 11:06 ALT 24 U/L (12-78) 05/17/18 11:06 Alkaline Phosphatase 77 U/L (45-117) 05/17/18 11:06 Home Medications: Carbidopa/Levodopa [Carbidopa-Levodopa 25-100 Tab] 1 tab PO BID 05/17/18 Pantoprazole Sodium 1 tab PO DAILY 05/17/18 Rivaroxaban [Xarelto*] 1 tab PO DAILY AFTER SUPPER 05/17/18 Doxycycline Monohydrate 100 mg PO BID #28 capsule 05/21/18 New Medications: Doxycycline Monohydrate 100 mg PO BID #28 capsule Patient Discharge Instructions: Please F.u with Orthopedics in 1 to 2 weeks post discharge. New medication. Doxycycline 100mg BID for 14 days Diet: Regular Activity: Ad annel Followup: Terrell Ritchie MD [ACTIVE - CAN ADMIT] - 1 Week (Call for appointment)
== END 2018-05-21 15:02 | disposition home or self-care (01) | DRG 603 ==
LOC: ER 10:14 → ERHOLD 11:54 → INTOOBSV 11:54 → 2ND 13:42 → OBSVTOIN 05-19 12:45
PROVIDERS: ADMIT Internal Medicine Hematology & Oncology; ATTEND Internal Medicine Hematology & Oncology
DX: L03.113 Cellulitis of right upper limb (principal); S61.411A Laceration without foreign body of right hand, initial encounter; E78.5 Hyperlipidemia, unspecified; I10 Essential (primary) hypertension; G20 Parkinson's disease; W22.8XXA Striking against or struck by other objects, initial encounter; Y92.009 Unspecified place in unspecified non-institutional (private) residence as the place of occurrence of the external cause; Z86.73 Personal history of transient ischemic attack (TIA), and cerebral infarction without residual deficits; Z88.2 Allergy status to sulfonamides
CPT/HCPCS: 36415; 80053; 80202; 81003; 81015; 85027; 87070; 87205; 96365; 96366; 99285; A9577; G0378; J1720; J2543; J3370

== ENCOUNTER 2018-10-28 14:45 | Emergency (ER) | payer OTHER, MEDICARE ==
--- OUTSIDE RECORDS SUMMARY | 2018-10-28 14:52 | XMS REPORT | Continuity of Care Document ---
:1945 Author Organization Interface Problems Problem Status Onset Classification Date Comments Source Date Reported ACUTE STROKE Active [address] ACUTE STROKE Active [address] SARAH Active [facility] BILLING [address] [place] [address] CVA Active [address] DVT (<span Resolved Problem 07/10/2014 [facility] ID="[id number] Medical 97">Confirmed Center </span>) CVA Active [facility] Medications Medication Details Route Status Patient Ordering Order Source Instructions Provider Date Warfarin 7.5 mg, 1 tab, Inactive [facility] Route: PO, Drug 2013 Medical form: TAB, Q5PM, Center Dosing Weight 83, kg, Start date: 07/07/14 17:00:00, Duration: 1 doses or times, Stop date: 07/07/14 17:00:00Notes: Nurse to ensure documentation of patient education per anticoagulation policy. Avoid large intake of vitamin-K containing foods diet. (Same As: Coumadin) atorvastatin 20 20 mg=1 tab, PO, Active 07/07[facility] mg oral tablet Bedtime, # 30 2014 Medical tab, 3 Refill(s) Center aspirin 325 mg 325 mg=1 tab, PO, Active 07/07[facility] tablet Daily, # 100 tab, 2014 Medical 3 Refill(s) Center warfarin 7.5 mg 7.5 mg, PO, Q5PM, Active 07/07[facility] oral tablet # 5 tab, 0 2013 Medical Refill(s) Center OLANZapine 2.5 2.5 mg=1 tab, PO, Active 07/07[facility] mg oral tablet Q6H, Agitation, 0 2013 Medical Refill(s) Center 0.4 mg=1 tab, PO, Active 07/07[facility] Multivitamins Daily, 0 2013 Medical with Folic Acid Refill(s) Center 0.4 mg oral tablet Folic Acid 1 MG 1 mg=1 tab, PO, Active 07/07[facility] Oral Tablet Daily, 0 2013 Medical Refill(s) [place] Docusate Sodium 100 mg=1 cap, PO, Active [place] 100 MG Oral Q12H, 0 Refill(s) 2013 Medical Capsule Center benzonatate 100 100 mg=1 cap, PO, Active [facility] mg oral capsule TID, Cough, 0 2013 Medical Refill(s) [place] Acetaminophen 650 mg=2 tab, PO, Active [place] 325 MG Oral Q4H, Pain 2013 Medical Tablet 1-3/Temp > 99.5 Center F, 0 Refill(s) Warfarin 5 mg, 1 tab, Inactive [place] Route: PO, Drug 2013 Medical form: TAB, Q5PM, Center Dosing Weight 83, kg, Start date: 07/06/14 17:00:00, Duration: 1 doses or times, Stop date: 07/06/14 17:00:00Notes: Nurse to ensure documentation of patient education per anticoagulation policy. Avoid large intake of vitamin-K containing foods diet. (Same As: Coumadin) cefpodoxime 100 mg, Route: Inactive [place] PO, Drug form: 2013 Medical TAB, [id number], Center Dosing Weight 83, kg, Priority: NOW, Start date: 07/06/14 11:17:00, Duration: 7 day, Stop date: 07/12/14 23:17:00 benzonatate 100 mg, 1 cap, No Longer [place] Route: PO, Drug Active 2013 Medical form: CAP, TID, Center Dosing Weight 83, kg, PRN Cough, Start date: 07/06/14 2:28:00, Duration: 30 day, Stop date: 08/05/14 2:27:00Notes: (Same As: Simran Red) "Do Not Crush" Mag-Ox 400 800 mg, 2 tab, Inactive [place] Route: PO, Drug 2013 Medical form: TAB, ONCE, Center Dosing Weight 83, kg, Start date: 07/05/14 15:55:00, Stop date: 07/05/14 15:55:00Notes: (Same as: Mag-Ox 400) Magnesium oxide [id number] elemental magnesium Dose=____mg magnesium oxide (___mg elemental magnesium) Lactated Ringers 1,000 mL, Rate: Inactive [facility] IV 1000 mL 100 ml/hr, Infuse 2013 Medical over: 10 hr, Center Route: IV, Dosing Weight 83 kg, Total Volume: 1,000, Start date: 07/05/14 11:26:00, Duration: 30 day, Stop date: 08/04/14 11:25:00 Lactated Ringers 1,000 mL, Rate: No Longer [facility] IV 1,000 mL 100 ml/hr, Infuse Active 2013 Medical over: 10 hr, Center Route: IV, Dosing Weight 83 kg, Total Volume: 1,000, Priority: STAT, Start date: 07/05/14 10:06:00, Duration: 30 day, Stop date: 08/04/14 10:05:00 Magnesium 2 gm, 50 mL, Inactive [facility] Sulfate Route: IVPB, Drug 2013 Medical form: INJ, ONCE, Center Dosing Weight 83, kg, Total dose=2 gm, Start date: 07/05/14 10:05:00, Duration: 1 doses or times, Stop date: 07/05/14 10:05:00 normal saline 1,000 mL, Rate: Inactive [facility] 0.9% IV 1,000 mL 125 ml/hr, Infuse 2013 Medical over: 8 hr, Center Route: IV, Dosing Weight 83 kg, Total Volume: 1,000, Start date: 07/05/14 9:24:00, Duration: 1 day, Stop date: 07/06/14 9:23:00 Rocephin 1 gm, Route: No Longer [facility] IVPB, Drug form: Active 2013 Medical PDR/INJ, [id number], Center Dosing Weight 83, kg, Start date: 07/05/14 8:00:00, Duration: 30 day, Stop date: 08/03/14 8:00:00Notes: Use with 100ml NS mini-bag PLUS and infuse over 30 min ZyPREXA 2.5 mg, 1 tab, Inactive [facility] Route: PO, Drug 2013 Medical form: TAB, Center Bedtime, Start date: 07/04/14 21:00:00, Duration: 1 doses or times, Stop date: 07/04/14 21:00:00Notes: (Same as: ZyPREXA) Geodon 5 mg, Route: IM, Inactive [facility] Q4H, Dosing 2013 Medical Weight 83, kg, Center Start date: 07/04/14 21:00:00, Duration: 30 day, Stop date: 08/03/14 20:00:00 ZyPREXA 2.5 mg, 1 tab, No Longer [facility] Route: PO, Drug Active 2013 Medical form: TAB, Q6H, Center PRN Agitation, Start date: 07/04/14 17:08:00, Duration: 30 day, Stop date: 08/03/14 17:07:00Notes: (Same as: ZyPREXA) folic acid 1 mg 1 mg, 1 tab, No Longer [facility] oral tablet Route: PO, Drug Active 2013 Medical form: TAB, Daily, Center Start date: 07/04/14 17:00:00, Duration: 30 day, Stop date: 08/03/14 9:00:00Notes: (Same as: Folvite) Sodium Chloride 250 mL, Rate: 999 Inactive [facility] 0.9% IV 250 mL ml/hr, Infuse 2013 Medical over: 0.3 hr, Center Route: IV, Dosing Weight 83 kg, Total Volume: 250, Start date: 07/04/14 14:45:00, Duration: 1 doses or times, Stop date: 07/04/14 15:02:00 Sodium Chloride 500 mL, Rate: 999 Inactive [facility] 0.9% IV 500 mL ml/hr, Infuse 2013 Medical over: 0.5 hr, Center Route: IV, Dosing Weight 83 kg, Total Volume: 500, Start date: 07/04/14 14:44:00, Duration: 1 doses or times, Stop date: 07/04/14 15:13:00 Benadryl 25 mg, 1 cap, Inactive [facility] Route: PO, Drug 2013 Medical form: CAP, ONCE, Center Dosing Weight 83, kg, PRN Itching, Start date: 07/04/14 12:20:00, Stop date: 08/03/14 13:19:00Notes: (Same as: Benadryl) Ativan 1 mg, 0.5 mL, Inactive [place] Route: IV, Drug 2013 Medical form: INJ, Center ONCALL, Dosing Weight 83, kg, Start date: 07/04/14 4:00:00, Duration: 1 doses or times, Stop date: 07/05/14 0:00:00Notes: (Same as: Ativan) heparin, porcine 5,000 unit, 1 mL, No Longer [facility] Route: SUB-Q, Active 2013 Medical Drug form: INJ, Center Q8H, Dosing Weight 83, kg, Start date: 07/04/14 0:00:00, Duration: 30 day, Stop date: 08/02/14 16:00:00Notes: porcine heparin aspirin 325 mg 325 mg, 1 tab, No Longer [facility] tablet Route: PO, Drug Active 2013 Medical form: ECTAB, Center Daily, Dosing Weight 83, kg, Start date: 07/03/14 22:00:00, Duration: 30 day, Stop date: 08/01/14 22:00:00Notes: (Do Not Crush) Do not crush or chew. atorvastatin 20 mg, 1 tab, No Longer [facility] Route: PO, Drug Active 2013 Medical form: TAB, Center Bedtime, Dosing Weight 83, kg, Start date: 07/03/14 21:00:00, Stop date: 08/01/14 21:00:00Notes: (Same As: Lipitor) sennosides, [facility] 8.6 mg, 1 tab, No Longer [facility] Route: PO, Drug Active 2013 Medical Form: TAB, Dosing Center Weight 83, kg, BID, Start date: 07/03/14 17:00:00, Duration: 30 day, Stop date: 08/02/14 9:00:00Notes: (Same as: Senokot) pantoprazole 40 mg, Route: Inactive [place] IVP, Drug form: 2013 Medical INJ, Before Center Dinner, Dosing Weight 79.545, kg, Start date: 07/03/14 16:30:00, Duration: 30 day, Stop date: 08/01/14 16:30:00Notes: For IV push reconstitute with 10 ml 0.9% sodium chloride and push over 2 minutes. (Same as: Protonix) Sodium Chloride 1,000 mL, Rate: No Longer [place] 0.154 MEQ/ML 75 ml/hr, Infuse Active 2013 Medical Injectable over: 13.3 hr, [place] Solution Route: IV, Dosing Weight 83 kg, Total Volume: 1,000, Start date: 07/03/14 16:25:00, Duration: 12 hr, Stop date: 07/04/14 4:24:00 Thiamine 100 mg, 1 tab, No Longer [facility] Route: PO, Drug Active 2013 Medical form: TAB, Daily, Center Dosing Weight 83, kg, Start date: 07/03/14 12:00:00, Duration: 30 day, Stop date: 08/02/14 9:00:00Notes: (Same As: Vitamin B1) 1 tab, Route: PO, No Longer [place] Multivitamins Drug Form: TAB, Active 2013 Medical with Folic Acid Dosing Weight 83, Center 0.8 mg oral kg, Daily, Start tablet date: 07/03/14 12:00:00, Duration: 30 day, Stop date: 08/02/14 9:00:00 Saline Flush 10 ml, Route: No Longer [place] 0.9% IVP, Drug Form: Active 2013 Medical INJ, Dosing Center Weight 79.545, kg, Q12H, Start date: 07/03/14 9:00:00, Duration: 30 day, Stop date: 08/01/14 21:00:00Notes: (Same as: BD Posiflush) pneumococcal 0.5 ml, Route: Inactive [facility] capsular IM, Drug Form: 2013 Medical polysaccharide INJ, Daily, Start Center type 1 vaccine / date: 07/03/14 pneumococcal 9:00:00, capsular Duration: 1 doses polysaccharide or times, Stop type 10A vaccine date: 07/03/14 / pneumococcal 9:00:00Notes: capsular (Same as: polysaccharide Pneumovax 23) type 11A vaccine Refrigerate / pneumococcal capsular polysaccharide type 12F vaccine / pneumococcal capsular polysacchar Influenza Virus 0.5 mL, Route: Inactive [facility] Vaccine, IM, Drug Form: 2013 Medical Inactivated SUSP, Daily, [place] L-Thnpowup-69 Start date: 07 (H3N2)-like 07/03/14 9:00:00, virus Duration: 1 doses (G-[id number]-[id number] or times, Stop 007 [facility] X-175C) date: 07/03/14 strain / 9:00:00Notes: Influenza Virus (Same as: Fluzone Vaccine, Quadrivalent) Inactivated R-Cyrpfodp-27-20 07, IVR-148 (H1N1) strain / Influenza Virus Vaccine, Inactivated, N-Ohddtly-3 -lik Docusate 100 mg, 1 cap, No [...] Cardizem) magnesium 2 gm, 50 mL, Inactive [facility] sulfate Route: IVPB, Drug 2013 Medical form: INJ, Q2H, Center Start date: 07/03/14 6:00:00, Duration: 2 doses or times, Stop date: 07/03/14 8:00:00 calcium 3,000 mg, 30 mL, Inactive [facility] gluconate + Route: IV, ONCE, 2013 Medical Sodium Chloride Start date: [place] 0.9% IV 100 mL 07/03/14 6:00:00, Stop date: 07/03/14 6:00:00 Sodium Chloride 500 mL, 500 Inactive [facility] 0.154 MEQ/ML ml/hr, Infuse 2013 Medical Injectable Over: 1 hr, [place] Solution Route: IV, 500, Drug form: INJ, ONCE, Priority: STAT, Dosing Weight 83 kg, Start date: 07/03/14 3:50:00, Duration: 1 doses or times, Stop date: 07/03/14 3:50:00 Omnipaque 300 50 ml, Route: Inactive [facility] [place] INTRAARTERIAL, 2013 Medical Dosing [...] Acetaminophen 650 mg, 2 tab, No Longer [place] Route: PO, Drug Active 2013 Medical form: TAB, Q4H, Center Dosing Weight 79.545, kg, PRN Pain 1-3/Temp > 99.5 F, Start date: 07/02/14 22:10:00, Duration: 30 day, Stop date: 08/01/14 22:09:00Notes: Do not exceed 4 gm/day. (Same as: Tylenol) Bisacodyl 10 mg, 1 supp, No Longer [place] Route: LA, Drug Active 2013 Medical form: SUPP, Center Daily, Dosing Weight 79.545, kg, PRN Constipation, Start date: 07/02/14 22:10:00, Duration: 30 day, Stop date: 08/01/14 22:09:00Notes: (Same As: Dulcolax, Bisco-Lax) Nicardipine 40 mg, 200 mL, No Longer [place] Rate: Start at 5 Active 2013 Medical mg/hr., Dosing Center Weight 79.545, kg, Route: IV, Total Volume: 200, Titrate to maintain SBP 140-180mmHg., Start Date: 07/02/14 22:10:00, Duration: 30 day, Stop date: 08/01/14 22:09:00, Replace Every: 24 hrNotes: Same as: Cardene Concentration: (0.2 mg /1 ml ) Enalapril 0.625 mg, 0.5 mL, No Longer [place] Route: IVP, Drug Active 2013 Medical form: [...] 07/02/14 21:54:00 iodixanol 125 mL, Route: Inactive [facility] IVP, Drug Form: 2013 Medical SOLN, Dosing Center Weight 79.545, kg, ONCALL, STAT, Start date: 07/02/14 21:53:00, Duration: 1 doses or times, Dose=2.2ml/kg, Max antz=[id number] -- "To be infused by Radiology Staff ONLY"Special Instructions: Dose=2.2ml/kg, Max [id number] -- "To be infused by Radiology Staff ONLY" aspirin 0 Refill(s) No Longer [facility] Active 2013 [facility] Saline Flush 10 mL, Route: No Longer [facility] 0.9% IVP, Drug Form: Active 2013 [facility] INJ, kg, PRN, PRN [place] Flush, Start date: 07/02/14 21:34:00, Duration: 30 day, Stop date: 08/01/14 20:33:00Notes: (Same as: BD Posiflush) Allergies, Adverse Reactions, Alerts Substance Category Reaction Severity Reaction Status Date Comments Source type Reported sulfa drugs Assertion Drug Active [facility] Immunizations Immunization Date Given Site Status Last Comments Source Updated pneumococcal 07/04/2014 Left completed [facility] 23-valent vaccine [facility] influenza virus 07/04/2014 Right completed [facility] vaccine, [facility] [place] Results Order Name Results Value Reference Date Interpretation Comments Source Range URINE AND Occult Bld Negative Negative 07/07 [facility] STOOL Stl [facility] (07/07/14 3:42 PM) Center ELECTROLYTE AGAP 14.5 meq/L 10.0 - 07/07 [facility] S 20.0 [facility] ELECTROLYTE Potassium Lvl 4.5 meq/L 3.5 - 5.1 07/07 [facility] S [facility] ELECTROLYTE Sodium Lvl 142 meq/L 135 - 145 07/07 [facility] S [facility] ELECTROLYTE Calcium Lvl 8.6 mg/dL 8.5 - 10.5 07/07 [facility] S [facility] ELECTROLYTE CO2 22 meq/L 24 - 32 07/07 [facility] S [facility] ELECTROLYTE Chloride Lvl 110 meq/L 95 - 109 07/07 [facility] S [facility] ELECTROLYTE eGFR 58 07/07 1Result Comment: The eGFR is calculated using the CKD-EPI formula. In most young, healthy individuals the eGFR will be > 90 mL/min/1.73m2. The eGFR declines with age. An eGFR of 60-89 may be normal in [facility] mL/min/1. some populations, particularly the elderly, for whom the CKD-EPI formula has not been extensively validated. Use of the eGFR is not recommended in the following populations: [address] Individuals with unstable creatinine concentrations, including [...] Creatinine 1.0 mg/dL 0.5 - 1.4 07/07 [facility] Lvl [facility] ELECTROLYTE BUN 23 mg/dL 7 - 07/07 [facility] S [facility] ELECTROLYTE Glucose Lvl 97 mg/dL 70 - 99 07/07 4Interpretive Data: Adult reference range values reflect the clinical guidelines [facility] of the [place] [employer]. [facility] HEMATOLOGY PT 12.7 s 12.0 - 07/07 [facility] . [facility] HEMATOLOGY INR 0.95 0.85 - 07/07 10Interpretive Data: RECOMMENDED RANGES FOR PROTIME INR: [facility] 1.17 2.0-3.0 for most medical and surgical thromboembolic states. Medical 2.5-3.5 for artificial heart valves and recurrent embolism. Center INR SHOULD BE USED ONLY FOR PATIENTS ON STABLE ANTICOAGULANT THERAPY. HEMATOLOGY RDW 13.8 % 11.5 - 07/07 [place] 14.5 [facility] HEMATOLOGY RBC 3.59 M/CMM 4.20 - 07/07 [place] 5.40 [facility] HEMATOLOGY WBC 12.1 K/CMM 3.7 - 10.4 07/07 [facility] HEMATOLOGY Hgb 11.5 g/dL 12.0 - 07/07 [place] 16.0 [facility] HEMATOLOGY Hct 36.0 % 36.0 - 07/07 [place] 48.0 [facility] HEMATOLOGY MCV 100.3 fL 80.0 - 07/07 [place] 98.0 /2013 [facility] HEMATOLOGY MCH 32.0 pg 27.0 - 07/07 [place] 31.0 [facility] HEMATOLOGY MCHC 31.9 g/dL 32.0 - 07/07 36.0 [facility] HEMATOLOGY MPV 11.4 fL 7.4 - 10.4 07/07 [facility] HEMATOLOGY Platelet 175 K/CMM 133 - 450 07/07 [facility] HEMATOLOGY Monocytes 14.9 % 2.0 - 12.0 07/07 [facility] HEMATOLOGY Eosinophils 3.5 % 0.0 - 4.0 07/07 [facility] HEMATOLOGY Basophils 0.4 % 0.0 - 1.0 07/07 [facility] HEMATOLOGY Lymphocytes # 3.9 K/CMM 1.0 - 5.5 07/07 [facility] HEMATOLOGY Monocytes # 1.8 K/CMM 0.0 - 0.8 07/07 [facility] HEMATOLOGY Segs-Bands # 5.9 K/CMM 1.5 - 8.1 07/07 [facility] HEMATOLOGY Eosinophils # 0.4 K/CMM 0.0 - 0.5 07/07 [facility] HEMATOLOGY Macrocyte 1+ None Seen 07/07 Medical *ABN* Center (07/07/14 1:00 AM) HEMATOLOGY Lymphocytes 32.6 % 20.0 - 07/07 [facility] 40.0 /2013 [facility] HEMATOLOGY Segs 48.6 % 45.0 - 07/07 [facility] 75.0 /2013 [facility] HEMATOLOGY PT 13.9 s 12.0 - 07/07 [facility] 14.7 [facility] HEMATOLOGY INR 1.07 0.85 - 07/07 11Interpretive Data: RECOMMENDED RANGES FOR PROTIME INR: [facility] 1. 2.0-3.0 for most medical and surgical thromboembolic states. Medical 2.5-3.5 for artificial heart valves and recurrent embolism. Center INR SHOULD BE USED ONLY FOR PATIENTS ON STABLE ANTICOAGULANT THERAPY. HEMATOLOGY PTT 35.0 s 22.9 - 07/07 13Interpretiv [facility] 35.8 e Data: [facility] Therapeutic Range: 57 - 92 Seconds ANEMIA Folate Lvl 14.3 ng/mL >=3.0 07/06 [facility] STUDY ng/mL [facility] ANEMIA Vitamin B12 908 pg/mL 254 - 1320 07/06 [facility] STUDY Lvl [facility] ANEMIA UIBC 245 ug/dl 110 - 370 07/06 [facility] ANEMIA % [place] 18 % 12 - 57 07/06 [facility] ANEMIA Iron 52 ug/dl 30 - 160 07/06 [facility] ANEMIA TIBC 297 ug/dl 228 - 428 07/06 [facility] ANEMIA Transferrin 227 mg/dL 212 - 360 07/06 [facility] HEMATOLOGY Monocytes 15.2 % 2.0 - 12.0 07/06 [facility] HEMATOLOGY Eosinophils # 0.3 K/CMM 0.0 - 0.5 07/06 [facility] HEMATOLOGY Monocytes # 1.6 K/CMM 0.0 - 0.8 07/06 [facility] HEMATOLOGY Basophils 0.4 % 0.0 - 1.0 07/06 [facility] HEMATOLOGY Eosinophils 3.2 % 0.0 - 4.0 07/06 [facility] HEMATOLOGY Lymphocytes # 3.4 K/CMM 1.0 - 5.5 07/06 [facility] HEMATOLOGY Segs-Bands # 5.3 K/CMM 1.5 - 8.1 07/06 [facility] HEMATOLOGY Segs 49.6 % 45.0 - 07/06 75.0 [facility] HEMATOLOGY Plt Morph Normal 07/06 [facility] (07/06/14 2:30 AM) [place] HEMATOLOGY Lymphocytes 31.6 % 20.0 - 07/06 40. [facility] HEMATOLOGY RBC Morph Normal 07/06 [facility] (07/06/14 2:30 AM) Center HEMATOLOGY WBC 10.6 K/CMM 3.7 - 10.4 07/06 [facility] HEMATOLOGY MCV 97.8 fL 80.0 - 07/06 98.0 [facility] HEMATOLOGY Hct 37.0 % 36.0 - 07/06 48. [facility] HEMATOLOGY Hgb 12.1 g/dL 12.0 - 07/06 16. [facility] HEMATOLOGY RBC 3.78 M/CMM 4.20 - 07/06 [place] 5. [facility] HEMATOLOGY MCHC 32.8 g/dL 32.0 - 07/06 [place] 36.0 [facility] HEMATOLOGY MCH 32.1 pg 27.0 - 07/06 [place] 31.0 [facility] HEMATOLOGY RDW 13.9 % 11.5 - 07/06 14. [facility] HEMATOLOGY MPV 12.2 fL 7.4 - 10.4 07/06 [facility] HEMATOLOGY Platelet 167 K/CMM 133 - 450 07/06 [facility] CARDIAC Troponin-T null 0.000 - 07/05 [place] ENZYMES 0.100 [facility] CARDIAC Total CK 123 unit/L 12 - 191 07/05 ENZYMES [facility] CARDIAC Troponin-I 0.02 ng/mL 0.00 - 07/05 [facility] ENZYMES 0.40 [facility] CARDIAC CK MB Index 1.0 0.0 - 2.5 07/05 ENZYMES [facility] CARDIAC CK MB 1.2 ng/mL 0.5 - 3.6 07/05 [facility] HEMATOLOGY Basophils 0.7 % 0.0 - 1.0 07/05 [facility] HEMATOLOGY Eosinophils 2.4 % 0.0 - 4.0 07/05 [facility] HEMATOLOGY Segs-Bands # 5.3 K/CMM 1.5 - 8.1 07/05 [facility] HEMATOLOGY Lymphocytes # 2.1 K/CMM 1.0 - 5.5 07/05 [facility] HEMATOLOGY Monocytes # 1.4 K/CMM 0.0 - 0.8 07/05 [facility] HEMATOLOGY Eosinophils # 0.2 K/CMM 0.0 - 0.5 07/05 [facility] HEMATOLOGY Basophils # 0.1 K/CMM 0.0 - 0.2 07/05 [facility] HEMATOLOGY Segs 58.2 % 45.0 - 07/05 [place] 75.0 [facility] HEMATOLOGY Monocytes 15.5 % 2.0 - 12.0 07/05 [facility] HEMATOLOGY Lymphocytes 23.2 % 20.0 - 07/05 [place] 40.0 [facility] HEMATOLOGY MCHC 33.0 g/dL 32.0 - 07/05 36.0 [facility] HEMATOLOGY RDW 14.0 % 11.5 - 07/05 [facility] [place] 14. [facility] HEMATOLOGY WBC 9.1 K/CMM 3.7 - 10.4 07/05 [facility] HEMATOLOGY RBC 3.13 M/CMM 4.20 - 07/05 5.40 [facility] HEMATOLOGY Hgb 10.1 g/dL 12.0 - 07/05 16.0 [facility] HEMATOLOGY Platelet 142 K/CMM 133 - 450 07/05 [facility] HEMATOLOGY MPV 12.1 fL 7.4 - 10.4 07/05 [facility] HEMATOLOGY Hct 30.7 % 36.0 - 07/05 48.0 [facility] HEMATOLOGY MCH 32.3 pg 27.0 - 07/05 31.0 [facility] HEMATOLOGY MCV 98.0 fL 80.0 - 07/05 [facility] 98.0 [facility] HEMATOLOGY Basophils # 0.1 K/CMM 0.0 - 0.2 07/05 [facility] CHEM PANEL Magnesium Lvl 1.6 mg/dL 1.8 - 2.4 07/05 [facility] CHEM PANEL Phosphorus 3.7 mg/dL 2.5 - 4.5 07/05 [facility] CHEM PANEL eGFR 76 07/05 2Result Comment: The eGFR is calculated using the CKD-EPI formula. In most young, healthy individuals the eGFR will be >90 mL/ min/1.73m2. The eGFR declines with age. An eGFR of 60-89 may be normal in [facility] mL/min/1.7 some populations, particularly the elderly, for whom the CKD-EPI formula has not been extensively validated. Use of the eGFR is not recommended in the following populations: [address] Individuals with unstable creatinine concentrations, including [...] CO2 25 meq/L 24 - 32 07/05 [facility] CHEM PANEL Calcium Lvl 8.3 mg/dL 8.5 - 10.5 07/05 [facility] Center CHEM PANEL Sodium Lvl 145 meq/L 135 - 145 07/05 [facility] CHEM PANEL BUN 15 mg/dL 7 - 22 07/05 [facility] CHEM PANEL Creatinine 0.8 mg/dL 0.5 - 1.4 07/05 [facility] CHEM PANEL Chloride Lvl 112 meq/L 95 - 109 07/05 [facility] CHEM PANEL Potassium Lvl 4.5 meq/L 3.5 - 5.1 07/05 [facility] CHEM PANEL Glucose Lvl 89 mg/dL 70 - 99 07/05 5Interpretive Data: Adult reference range values reflect the clinical guidelines of the [place] [employer]. [facility] Center CHEM PANEL AGAP 12.5 meq/L 10.0 - 07/05 . [facility] DRUG SCREEN U Phencyc Scr Negative Negative 07/05 Medical *NA* [place] (07/04/14 7:50 PM) DRUG SCREEN UDS Note [...] SCREEN U Cocaine Scr Negative Negative 07/05 [facility] *NA* Center (07/04/14 7:50 PM) DRUG SCREEN U Opiate Scr Negative Negative 07/05 [facility] *NA* Center (07/04/14 7:50 PM) DRUG SCREEN U Amph Scr Negative Negative 07/05 [facility] *NA* Center (07/04/14 7:50 PM) URINE AND UA <=1.0 0.1 - 1.0 07/05 [facility] Urobilinogen mg/dL [facility] URINE AND UA RBC 1 /HPF 0 - 2 07/05 [facility] URINE AND UA Mucus Few /LPF None Seen 07/05 [place] STOOL /LPF [facility] URINE AND UA Hyal Cast 1 /LPF 0 - 2 07/05 [facility] URINE AND UA WBC 9 /HPF 0 - 5 07/05 [facility] URINE AND UA Glucose Negative Negative 07/05 [facility] mg/dL mg/dL [facility] URINE AND UA Ketones Negative Negative 07/05 [facility] mg/dL mg/dL [facility] URINE AND UA pH 5.0 5.0 - 8.0 07/05 [facility] URINE AND UA Protein Negative Negative 07/05 [facility] mg/dL mg/dL [facility] URINE AND UA Spec Grav 1.010 <=1.030 07/05 [facility] URINE AND UA Leuk Est Moderate Negative 07/05 [facility] *ABN* Center (07/04/14 7:50 PM) URINE AND UA Sq Epi Few /LPF Few /LPF 07/05 [facility] URINE AND UA Bili Negative Negative 07/05 [facility] Medical *NA* [place] (07/04/14 7:50 PM) URINE AND UA Blood Negative Negative 07/05 [facility] (07/04/14 7:50 PM) Center URINE AND UA Nitrite Negative Negative 07/05 [facility] (07/04/14 7:50 PM) Center URINE AND UA Color Yellow Yellow 07/05 [facility] *NA* Center (07/04/14 7:50 PM) URINE AND UA Turbidity Clear Clear 07/05 [facility] (07/04/14 7:50 PM) [place] CHEM PANEL Lactic Acid 1.0 mMol/L 0.5 - 2.2 07/04 [facility] CHEM PANEL Globulin 2.5 g/dL 2.0 - 4.0 07/04 [facility] CHEM PANEL A/G Ratio 1.3 0.7 - 1.6 07/04 [facility] CHEM PANEL Bili Indirect 0.3 mg/dL 0.0 - 1.0 07/04 [facility] CHEM PANEL Total Protein 5.7 g/dL 6.4 - 8.4 07/04 [facility] CHEM PANEL Alk Phos 61 unit/L 39 - 136 07/04 [facility] CHEM PANEL Albumin Lvl 3.2 g/dL 3.5 - 5.0 07/04 [facility] CHEM PANEL ALT 21 unit/L 0 - 65 07/04 [facility] CHEM PANEL AST 16 unit/L 0 - 37 07/04 [facility] CHEM PANEL Bili Direct 0.1 mg/dL 0.0 - 0.3 07/04 [facility] CHEM PANEL Bili Total 0.4 mg/dL 0.2 - 1.3 07/04 [facility] CHEM PANEL Phosphorus 3.3 mg/dL 2.5 - 4.5 07/04 [facility] CHEM PANEL Magnesium Lvl 1.8 mg/dL 1.8 - 2.4 07/04 [facility] CHEM PANEL eGFR 66 07/04 3Result Comment: The eGFR is calculated using the CKD-EPI formula. In most young, healthy individuals the eGFR will be >90 mL/ min/1.73m2. The eGFR declines with age. An eGFR of 60-89 may be normal in [facility] mL/min/1. some populations, particularly the elderly, for whom the CKD-EPI formula has not been extensively validated. Use of the eGFR is not recommended in the following populations: [place] [id number] Center Individuals with unstable creatinine concentrations, including [...] AGAP 11.5 meq/L 10.0 - 07/04 20.0 [facility] CHEM PANEL Calcium Lvl 8.3 mg/dL 8.5 - 10.5 07/04 [facility] CHEM PANEL Sodium Lvl 144 meq/L 135 - 145 07/04 [facility] CHEM PANEL Potassium Lvl 4.5 meq/L 3.5 - 5.1 07/04 [facility] CHEM PANEL Chloride Lvl 113 meq/L 95 - 109 07/04 [facility] CHEM PANEL CO2 24 meq/L 24 - 32 07/04 [facility] CHEM PANEL Glucose Lvl 107 mg/dL 70 - 99 07/04 6Interpretive Data: Adult reference range values reflect the clinical guidelines of the [place] [employer]. [facility] CHEM PANEL BUN 12 mg/dL 7 - 22 07/04 [facility] CHEM PANEL Creatinine 0.9 mg/dL 0.5 - 1.4 07/04 [facility] HEMATOLOGY INR 1.14 0.85 - 07/04 12Interpretive Data: RECOMMENDED RANGES FOR PROTIME INR: [facility] . 2.0-3.0 for most medical and surgical thromboembolic states. Medical 2.5-3.5 for artificial heart valves and recurrent embolism. Center INR SHOULD BE USED ONLY FOR PATIENTS ON STABLE ANTICOAGULANT THERAPY. HEMATOLOGY PTT 26.0 s 22.9 - 07/04 14Interpretiv [facility] 35.8 2014 e Data: [facility] Therapeutic Range: 57 - 92 Seconds HEMATOLOGY PT 14.7 s 12.0 - 07/04 [facility] 14.7 [facility] PARATHYROID Ca Norm WB 1.06 1.05 - 07/04 [facility] PROFILE mMol/L . [facility] PARATHYROID Ca Ion WB 1.06 1.05 - 07/04 [facility] PROFILE mMol/L . [facility] DRUG SCREEN UDS Note See Note 9 07/03 9Interpretive Data: Drugs reported as positive have not been confirmed by a second method and should be used for medical purposes only. To order Medical *NA* confirmation, contact laboratory. [place] (07/03/14 10:50 AM) note: Below are cut-off [...] SCREEN U Opiate Scr Negative Negative 07/03 [facility] [place] (07/03/14 10:50 AM) DRUG SCREEN U Phencyc Scr Negative Negative 07/03 [facility] *NA* [place] (07/03/14 10:50 AM) DRUG SCREEN U Cocaine Scr Negative Negative 07/03 [facility] [place] (07/03/14 10:50 AM) DRUG SCREEN U Benzodia Negative Negative 07/03 [facility] *NA* [place] (07/03/14 10:50 AM) DRUG SCREEN U Cannab Scr Negative Negative 07/03 [facility] [place] (07/03/14 10:50 AM) DRUG SCREEN U Amph Scr Negative Negative 07/03 [facility] *NA* [place] (07/03/14 10:50 AM) DRUG SCREEN U Shauna Scr Negative Negative 07/03 [facility] *NA* [place] (07/03/14 10:50 AM) LIPIDS CHD Risk 1.95 3.90 - 07/03 [place] 5.80 /2013 [facility] LIPIDS VLDL 8 07/03 [facility] LIPIDS LDL 72 mg/dL <=99 mg/dL 07/03 [place] (Calculated) [facility] LIPIDS Trig 42 mg/dL <=149 07/03 [place] mg/dL [facility] LIPIDS Chol 164 mg/dL <=199 07/03 [place] mg/dL [facility] LIPIDS HDL 84 mg/dL >=61 mg/dL 07/03 7Result Comment: Medical Specimen Center Slightly Hemolyzed. SPECIAL Hgb A1C 4.9 % <=5.6 % 07/03 [facility] CHEMISTRY [facility] URINE AND UA <=1.0 0.1 - 1.0 07/03 [facility] Urobilinogen mg/dL [facility] URINE AND UA Bacteria Occasional None Seen 07/03 [facility] STOOL /HPF /HPF /2013 [facility] URINE AND UA Mucus Few /LPF None Seen 07/03 [facility] STOOL /LPF [facility] URINE AND UA Amorph Occasional None Seen 07/03 [facility] STOOL Christin /HPF /HPF [facility] URINE AND UA Sq Epi Occasional Few /LPF 07/03 [facility] /LPF [facility] URINE AND UA WBC 4 /HPF 0 - 5 07/03 [facility] URINE AND UA Nitrite Negative Negative 07/03 [facility] (07/03/14 10:50 AM) [place] URINE AND UA Blood Negative Negative 07/03 [facility] (07/03/14 10:50 AM) [place] URINE AND UA Ketones Negative Negative 07/03 [facility] mg/dL mg/dL [facility] URINE AND UA RBC 2 /HPF 0 - 2 07/03 [facility] URINE AND UA Leuk Est Negative Negative 07/03 [facility] (07/03/14 10:50 AM) [place] URINE AND UA Color Light Yellow Yellow 07/03 [facility] *NA* [place] (07/03/14 10:50 AM) URINE AND UA pH 5.0 5.0 - 8.0 07/03 [facility] URINE AND UA Bili Negative Negative 07/03 [facility] Medical *NA* [place] (07/03/14 10:50 AM) URINE AND UA Glucose Negative Negative 07/03 [facility] mg/dL mg/dL [facility] URINE AND UA Turbidity Slight Clear 07/03 [facility] *ABN* [place] (07/03/14 10:50 AM) URINE AND UA Spec Grav 1.007 <=1.030 07/03 [facility] URINE AND UA Protein Negative Negative 07/03 [facility] mg/dL mg/dL [facility] BACTERIAL - MRSA by PCR Negative 16 07/03 16Interpretive Data: Interpretive Data: The Kerri LightCycler MRSA assay is a qualitative test for the direct detection of nasal colonization with methicillin-resistant Staphylococcus aureus (MRSA) to aid [facility] in the prevention and control of MRSA infections in healthcare settings. A positive result does not indicate an infection or require treatment. A negative result does not exclude colonization or infection. [facility] (07/03/14 3:11 AM) Center The polymerase chain reaction (PCR) assay detects a proprietary sequence indicative of the integration of the SCCmec cassette into the Staphylococcus aureus chromosome, indicating the presence of MRSA D NA. The assay utilizes FDA cleared IVD reagents. Performance characteristics have been verified by the [facility] within the [facility]. The [facility] Labor atory is authorized under the Clinical Laboratory Improvement Amendment of 1988 (CLIA-88) to perform high complexity testing. CARDIAC Troponin-I null 0.00 - 07/03 [facility] ENZYMES 0.40 [facility] CARDIAC Total CK 51 unit/L 12 - 191 07/03 [facility] CHEM PANEL Phosphorus 2.8 mg/dL 2.5 - 4.5 07/03 [facility] CHEM PANEL Magnesium Lvl 1.7 mg/dL 1.8 - 2.4 07/03 [facility] CHEM PANEL Total Protein 5.6 g/dL 6.4 - 8.4 07/03 [facility] CHEM PANEL Albumin Lvl 3.0 g/dL 3.5 - 5.0 07/03 [facility] CHEM PANEL Globulin 2.6 g/dL 2.0 - 4.0 07/03 [facility] CHEM PANEL A/G Ratio 1.2 0.7 - 1.6 07/03 [facility] CHEM PANEL ALT 26 unit/L 0 - 65 07/03 [facility] CHEM PANEL Alk Phos 66 unit/L 39 - 136 07/03 [facility] CHEM PANEL AST 18 unit/L 0 - 37 07/03 [facility] CHEM PANEL Bili Indirect 0.1 mg/dL 0.0 - 1.0 07/03 [facility] CHEM PANEL Bili Total 0.2 mg/dL 0.2 - 1.3 07/03 [facility] CHEM PANEL Bili Direct 0.1 mg/dL 0.0 - 0.3 07/03 [facility] HEMATOLOGY PTT 28.0 s 22.9 - 07/03 15Interpretiv [place] 35.8 e Data: [facility] Therapeutic Range: 57 - 92 Seconds PARATHYROID Ca Norm WB 1.01 1.05 - 07/03 [facility] PROFILE mMol/L 1. [facility] PARATHYROID Ca Ion WB 1.04 1.05 - 07/03 [facility] PROFILE mMol/L 1.25 [facility] CARDIAC Troponin-T 0.031 0.000 - 07/03 [facility] ENZYMES ng/mL 0.100 [facility] BLOOD BANK Antibody Scrn Negative 07/03 [facility] RESULTS [facility] (07/02/14 11:20 PM) [place] BLOOD BANK ABO/Rh O POS 07/03 [facility] RESULTS [facility] CARDIAC Troponin-I null 0.00 - 07/03 [facility] ENZYMES 0.40 [facility] CARDIAC Total CK 59 unit/L 12 - 191 07/03 [facility] ENZYMES [facility] CARDIAC CK MB 0.7 ng/mL 0.5 - 3.6 07/03 [facility] ENZYMES [facility] CARDIAC CK MB Index 1.2 0.0 - 2.5 07/03 [facility] ENZYMES [facility] HEMATOLOGY Basophils # 0.0 K/CMM 0.0 - 0.2 07/03 [facility] HEMATOLOGY RBC Morph Normal 07/03 [facility] (07/02/14 10:15 PM) [place] HEMATOLOGY Plt Morph Normal 07/03 [facility] (07/02/14 10:15 PM) [place] CHEM PANEL POC 1.2 mg/dL 0.5 - 1.4 07/03 [facility] Creatinine [facility] Vital Signs Vital Sign Value Date Comments Source Systolic (mm Hg) 147 07/08/2014 [facility] Respitory Rate 35 07/08/2014 [facility] Diastolic (mm Hg) 74 07/08/2014 [facility] Respitory Rate 22 07/07/2014 [facility] Diastolic (mm Hg) 68 07/07/2014 [facility] Respitory Rate 20 07/07/2014 [facility] Systolic (mm Hg) 126 07/07/2014 [facility] Diastolic (mm Hg) 75 07/07/2014 [facility] Systolic (mm Hg) 118 07/07/2014 [facility] Heart Rate 69 07/04/2014 [facility] Heart Rate 72 07/04/2014 [facility] Heart Rate 67 07/04/2014 [facility] Height 162.56 cm 07/03/2014 [facility] Weight 83 07/03/2014 [facility] BMI Calculated 31.41 07/03/2014 [facility] Height 162.56 cm 07/03/2014 [facility] Weight 83 07/03/2014 [facility] BMI Calculated 31.41 07/03/2014 [facility] Temperature Oral (F) 97.0 F 07/03/2014 [facility] Temperature Oral (F) 97.9 F 07/03/2014 [facility] BMI Calculated 30.1 07/03/2014 [facility] Weight 79.545 07/03/2014 [facility] Height 162.56 cm 07/03/2014 [facility] Encounters Location Location Encounter Encounter Reason Attending ADM DC Status Source Details Type Number For Provider Date Date Visit [facility] [id number] Korin 07/03 07/08 [facility] [place] [facility] Outpatient [id number] SONIA 12/15 Active [facility] [place] Outpatient [id number] SONIA 03/16 [facility] [place] Outpatient [id number] SONIA 07/20 Active [facility] [place] Outpatient [id number] SONIA 11/09 [facility] [place] Procedures Procedure Code Date Perfomer Comments Source Splenectomy [id number] [facility]
[2018-10-28] MEDS ORDERED: HYDROCODONE/APAP 7.5/325 MG TAB ONE (16:13)
--- NOTE | 2018-10-28 16:54 | EDPHYS ---
Physician Documentation [facility] Name: Ning Coffey Age: 72 yrs Sex: Female : 1945 Arrival Date: 10/28/2018 Time: 14:47 Bed 18 Private MD: Reddy Francois ED Physician Venkat Mitchell HPI: 10/28 16:01 This 72 yrs old Female presents to ER via Wheelchair with complaints of Fall cp Injury. 16:01 Details of fall: The patient fell from an upright position, while walking. cp 16:01 Onset: The symptoms/episode began/occurred just prior to arrival. Associated injuries: cp The patient sustained right wrist and right elbow. Historical: - Allergies: 15:08 Sulfa (Sulfonamide Antibiotics); iw - Home Meds: 15:08 Carbidopa-Levodopa Oral [Active]; Xarelto 15 mg Oral tab daily [Active]; iw hydrocodone-acetaminophen 10-325 mg Oral tab 1 tab every 4 hours for Pain [Active]; - PMHx: 15:08 CVA; Parkinsons; iw - PSHx: 15:08 splenectomy; Hysterectomy; Tonsillectomy; iw - Immunization history:: Adult Immunizations up to date. - Social history:: Smoking status: Patient/guardian denies using tobacco. - Ebola Screening: : Patient negative for fever greater than or equal to 101.5 degrees Fahrenheit, and additional compatible Ebola Virus Disease symptoms Patient denies exposure to infectious person Patient denies travel to an Ebola-affected area in the 21 days before illness onset No symptoms or risks identified at this time. ROS: 16:01 Eyes: Negative for injury, pain, redness, and discharge. cp 16:01 Constitutional: Negative for body aches, chills, fever, poor PO intake. 16:01 Neck: Negative for pain with movement, pain at rest, stiffness. 16:01 Cardiovascular: Negative for chest pain, palpitations. 16:01 Respiratory: Negative for cough, shortness of breath, wheezing. 16:01 Abdomen/GI: Negative for abdominal pain, nausea, vomiting, and diarrhea. 16:01 MS/extremity: Positive for decreased range of motion, pain, tenderness, of the right elbow and right wrist, Negative for deformity. 16:01 Skin: Positive for abrasion(s), of the right elbow. 16:01 Neuro: Negative for altered mental status, headache, weakness. 16:01 All other systems are negative. Exam: 16:10 Constitutional: The patient appears in no acute distress, alert, awake, cp non-diaphoretic, non-toxic, well developed, well nourished. 16:10 Head/Face: Normocephalic, atraumatic. cp 16:10 Eyes: Periorbital structures: appear normal, Conjunctiva: normal, no exudate, no injection, Lids and lashes: appear normal, bilaterally. 16:10 ENT: External ear(s): are unremarkable, Nose: is normal, Mouth: is normal, Posterior pharynx: Airway: no evidence of obstruction, patent, Voice: is normal. 16:10 Neck: C-spine: vertebral tenderness, is not appreciated, crepitus, is not appreciated, ROM/movement: is normal, is supple, without pain, no range of motions limitations, no nuchal rigidity. 16:10 Chest/axilla: Inspection: normal, Palpation: is normal, no crepitus, no tenderness. 16:10 Cardiovascular: Rate: normal, Rhythm: regular, Pulses: Pulses are 2+ in right radial artery. 16:10 Respiratory: the patient does not display signs of respiratory distress, Respirations: normal, no use of accessory muscles, no retractions, no splinting, no tachypnea, labored breathing, is not present. 16:10 Abdomen/GI: Exam negative for discomfort, distension, guarding, Inspection: abdomen appears normal. 16:10 Back: pain, is absent, ROM is normal. 16:10 Musculoskeletal/extremity: Extremities: grossly normal except: noted in the right wrist and right elbow: pain, tenderness, ROM: limited passive range of motion due to pain, in the right wrist, Perfusion: the extremity is normally perfused throughout, Sensation intact. 16:10 Skin: injury, abrasion(s), small abrasion noted, of the right elbow. 16:10 Neuro: Sensation: is normal. Vital Signs: 15:08 BP 182 / 80; Pulse 69; Resp 16 S; Temp 98.3; Pulse Ox 97% on R/A; Weight 69.4 kg; iw Height 5 ft. 3 in. (160.02 cm); Pain 10/10; 15:08 Body Mass Index 27.10 (69.40 kg, 160.02 cm) iw Procedures: 18:15 Splinting: Splint applied to right wrist and right elbow using Orthoglass splint, sugar nelly tong type. applied by nurse. Examined by me, post splint application: neurovascular intact, Patient tolerated well. MDM: 15:53 Patient medically screened. cp 16:52 Data reviewed: vital signs, nurses notes, radiologic studies, plain films. cp 16:52 Differential diagnosis: contusion, fracture, laceration. Test interpretation: by ED cp physician or midlevel provider: plain radiologic studies. Counseling: I had a detailed discussion with the patient and/or guardian regarding: the historical points, exam findings, and any diagnostic results supporting the discharge/admit diagnosis, radiology results, the need for outpatient follow up, for definitive care, a orthopedic surgeon, to return to the emergency department if symptoms worsen or persist or if there are any questions or concerns that arise at home. Response to treatment: the patient's symptoms have markedly improved after treatment, and as a result, I will discharge patient. 16:52 Counseling: I had a detailed discussion with the patient and/or guardian regarding: the cp presence of at least one elevated blood pressure reading (>120/80) during this emergency department visit. 10/28 15:59 Order name: XRAY Elbow RIGHT 3 view; Complete Time: 05:41 cp 10/28 15:59 Order name: XRAY Wrist RIGHT 3 view; Complete Time: 05:41 cp 10/28 15:59 Order name: Wound dressing: clean and dress wound; Complete Time: 18:11 cp 10/28 16:49 Order name: Splint: sugar tong right wrist; Complete Time: 18:11 cp Administered Medications: 15:59 Drug: Hydrocodone-Acetaminophen (7.5 mg-325 mg) 1 tabs Route: PO; 16:04 Follow up: Response: No adverse reaction; Pain is decreased hj Disposition: 10/28/18 16:54 Discharged to Home. Impression: Right distal radius fracture, Other slipping, tripping and stumbling and falls. - Condition is Stable. - Discharge Instructions: Wrist Fracture Treated With Immobilization. - Prescriptions for Tylenol- Codeine #3 300-30 mg Oral Tablet - take 2 tablets by ORAL route every 6 hours As needed; 20 tablet. - Medication Reconciliation Form, Thank You Letter, Antibiotic Education, Prescription Opioid Use form. - Follow up: Edy Carrillo MD; When: 2 - 3 days; Reason: right distal radius fracture. - Problem is new. - Symptoms have improved. Signatures: Dispatcher [employer] Denisse Acosta, RN RN iw Perez Bloom RN RN Raz Rose, PHILLIP FISHER cp Corrections: (The following items were deleted from the chart) 18:11 16:49 Sling ordered. cp jp3 18:27 16:54 10/28/2018 16:54 Discharged to Home. Impression: Right distal radius fracture; iw Other slipping, tripping and stumbling and falls. Condition is Stable. Forms are Medication Reconciliation Form, Thank You Letter, Antibiotic Education, Prescription Opioid Use. Follow up: Edy Carrillo; When: 2 - 3 days; Reason: right distal radius fracture. Problem is new. Symptoms have improved. cp 10/29 05:42 10/28 18:15 Splinting: Splint applied to right wrist and right elbow using Orthoglass cp splint, sling, sugar tong type. applied by nurse. Examined by me, post splint application: neurovascular intact, Patient tolerated well, cp
--- NOTE | 2018-10-28 16:54 | ER ---
Nurse's Notes [facility] Name: Ning Coffey Age: 72 yrs Sex: Female : 1945 Arrival Date: 10/28/2018 Time: 14:47 Bed 18 Private MD: Reddy Francois Diagnosis: Right distal radius fracture;Other slipping, tripping and stumbling and falls Presentation: 10/28 15:04 Presenting complaint: Patient states: pt lost her balance and fell to right side while iw walking, pain to right wrist and elbow. Transition of care: patient was not received from another setting of care. Onset of symptoms was October 28, 2018. Risk Assessment: Do you want to hurt yourself or someone else? Patient reports no desire to harm self or others. Initial Sepsis Screen: Does the patient meet any 2 criteria? No. Patient's initial sepsis screen is negative. Does the patient have a suspected source of infection? No. Patient's initial sepsis screen is negative. Care prior to arrival: None. 15:04 Method Of Arrival: Wheelchair iw 15:04 Acuity: DANIELLE 4 iw Triage Assessment: 15:11 General: Appears in no apparent distress. uncomfortable, Behavior is calm, cooperative, hj appropriate for age. Pain: Complains of pain in R wrist. Historical: - Allergies: 15:08 Sulfa (Sulfonamide Antibiotics); iw - Home Meds: 15:08 Carbidopa-Levodopa Oral [Active]; Xarelto 15 mg Oral tab daily [Active]; iw hydrocodone-acetaminophen 10-325 mg Oral tab 1 tab every 4 hours for Pain [Active]; - PMHx: 15:08 CVA; Parkinsons; iw - PSHx: 15:08 splenectomy; Hysterectomy; Tonsillectomy; iw - Immunization history:: Adult Immunizations up to date. - Social history:: Smoking status: Patient/guardian denies using tobacco. - Ebola Screening: : Patient negative for fever greater than or equal to 101.5 degrees Fahrenheit, and additional compatible Ebola Virus Disease symptoms Patient denies exposure to infectious person Patient denies travel to an Ebola-affected area in the 21 days before illness onset No symptoms or risks identified at this time. Screenin:10 Abuse screen: Denies threats or abuse. Denies injuries from another. Nutritional hj screening: No deficits noted. Tuberculosis screening: No symptoms or risk factors identified. Fall Risk None identified. Assessment: 15:11 General: Appears in no apparent distress. uncomfortable, Behavior is calm, cooperative, hj appropriate for age. Pain: Complains of pain in R wrist. Neuro: Level of Consciousness is awake, alert, obeys commands, Oriented to person, place, time, situation, Appropriate for age. Cardiovascular: Capillary refill < 3 seconds Patient's skin is warm and dry. Respiratory: Airway is patent Respiratory effort is even, unlabored, Respiratory pattern is regular, symmetrical. GI: No signs and/or symptoms were reported involving the gastrointestinal system. : No signs and/or symptoms were reported regarding the genitourinary system. EENT: No signs and/or symptoms were reported regarding the EENT system. Derm: No signs and/or symptoms reported regarding the dermatologic system. Musculoskeletal: Swelling Reports pain in R wrist. Vital Signs: 15:08 BP 182 / 80; Pulse 69; Resp 16 S; Temp 98.3; Pulse Ox 97% on R/A; Weight 69.4 kg; iw Height 5 ft. 3 in. (160.02 cm); Pain 10/10; 15:08 Body Mass Index 27.10 (69.40 kg, 160.02 cm) iw ED Course: 14:47 Patient arrived in ED. rg4 14:47 Reddy Francois is Private Physician. rg4 15:00 Perez Bloom, RN is Primary Nurse. hj 15:05 Triage completed. iw 15:08 Arm band placed on. iw 15:11 Patient has correct armband on for positive identification. Bed in low position. Call hj light in reach. Side rails up X 1. Adult w/ patient. 15:42 Raz Arredondo PA is PHCP. cp 15:43 Venkat Mitchell MD is Attending Physician. cp 16:53 Edy Carrillo MD is Referral Physician. cp 17:46 XRAY Elbow RIGHT 3 view In Process Unspecified. EDMS 17:46 XRAY Wrist RIGHT 3 view In Process Unspecified. EDMS 17:50 Wound care: to abrasion, located on right elbow and palmar aspect of right forearm was jp3 cleaned with Hibiclens, dressed with Neosporin, 4X4s. 18:00 Manny wrap to right elbow and right wrist Orthoglass splint: Sugar tong splint applied on jp3 right arm. 18:15 No provider procedures requiring assistance completed. Patient did not have IV access hj during this emergency room visit. Administered Medications: 15:59 Drug: Hydrocodone-Acetaminophen (7.5 mg-325 mg) 1 tabs Route: PO; hj 16:04 Follow up: Response: No adverse reaction; Pain is decreased hj Outcome: 16:54 Discharge ordered by MD. nelly 18:15 Discharged to home ambulatory, with family. 18:15 Condition: stable 18:15 Discharge instructions given to patient, family, Instructed on discharge instructions, follow up and referral plans. splint care Demonstrated understanding of splint care, Prescriptions given X 1. 18:27 Patient left the ED. iw Signatures: Dispatcher [employer] EDDenisse Beyer RN RN Perez Nolasco RN RN Raz Rose, Cindi Lamb cp rg4 Shawn Bolivar jp3
--- NOTE | 2018-10-28 18:17 | RAD REPORT ---
EXAM DESCRIPTION: RAD - Wrist Right 3 View - 10/28/2018 5:44 pm CLINICAL HISTORY: fall;Pain Pain COMPARISON: No comparisons FINDINGS: Diffuse osteopenia is seen. Mildly impacted distal radius fracture is identified. No dis location is evident.
--- NOTE | 2018-10-28 18:18 | RAD REPORT ---
EXAM DESCRIPTION: RAD - Elbow Right 3 View - 10/28/2018 5:44 pm CLINICAL HISTORY: fall;Pain COMPARISON: No comparisons FINDINGS: Diffuse osteopenia is seen. No acute fracture or dislocation is evident.
[2018-10-28 18:45] VITALS: BP 182/80; TEMP 98.3; O2SAT 97
== END 2018-10-28 18:27 | disposition home or self-care (01) ==
LOC: ER 14:45
PROC: 2W38X1Z Immobilization of Right Upper Extremity using Splint (ICD-10-PCS; principal; 2018-10-28)
DX: S52.501A Unspecified fracture of the lower end of right radius, initial encounter for closed fracture (principal); W01.0XXA Fall on same level from slipping, tripping and stumbling without subsequent striking against object, initial encounter; Y93.01 Activity, walking, marching and hiking; Y92.9 Unspecified place or not applicable; Z79.01 Long term (current) use of anticoagulants; Z88.2 Allergy status to sulfonamides; Z86.73 Personal history of transient ischemic attack (TIA), and cerebral infarction without residual deficits; G20 Parkinson's disease
CPT/HCPCS: 99284

== ENCOUNTER 2018-12-08 14:48 | Emergency (ER) | payer OTHER, MEDICARE ==
--- NOTE | 2018-12-08 16:44 | RAD REPORT ---
EXAM DESCRIPTION: RAD - Elbow Right 3 View - 12/08/2018 4:14 pm CLINICAL HISTORY: Right elbow pain FINDINGS: No fracture or dislocation is seen. The bones are osteoporotic
--- OUTSIDE RECORDS SUMMARY | 2018-12-08 17:02 | XMS REPORT | Continuity of Care Document ---
:1945 Author Organization Interface Problems Problem Status Onset Classification Date Comments Source Date Reported ACUTE STROKE Active [address] ACUTE STROKE Active [address] SARAH Active [facility] BILLING [address] [place] [address] CVA Active [address] DVT (<span Resolved Problem 07/10/2014 [facility] ID="[id number] Medical 97">Confirmed Center </span>) CVA Active [facility] Medications Medication Details Route Status Patient Ordering Order Source Instructions Provider Date Warfarin 7.5 mg, 1 tab, Inactive [facility] Route: PO, Drug 2013 Medical form: TAB, Q5PM, Center Dosing Weight 83, kg, Start date: 07/07/14 17:00:00, Duration: 1 doses or times, Stop date: 07/07/14 17:00:00Notes: Nurse to ensure documentation of patient education per anticoagulation policy. Avoid large intake of vitamin-K containing foods diet. (Same As: Coumadin) atorvastatin 20 20 mg=1 tab, PO, Active 07/07[facility] mg oral tablet Bedtime, # 30 2014 Medical tab, 3 Refill(s) Center aspirin 325 mg 325 mg=1 tab, PO, Active 07/07[facility] tablet Daily, # 100 tab, 2014 Medical 3 Refill(s) Center warfarin 7.5 mg 7.5 mg, PO, Q5PM, Active 07/07[facility] oral tablet # 5 tab, 0 2013 Medical Refill(s) Center OLANZapine 2.5 2.5 mg=1 tab, PO, Active 07/07[facility] mg oral tablet Q6H, Agitation, 0 2013 Medical Refill(s) Center 0.4 mg=1 tab, PO, Active 07/07[facility] Multivitamins Daily, 0 2013 Medical with Folic Acid Refill(s) Center 0.4 mg oral tablet Folic Acid 1 MG 1 mg=1 tab, PO, Active 07/07[facility] Oral Tablet Daily, 0 2013 Medical Refill(s) [place] Docusate Sodium 100 mg=1 cap, PO, Active [place] 100 MG Oral Q12H, 0 Refill(s) 2013 Medical Capsule Center benzonatate 100 100 mg=1 cap, PO, Active [facility] mg oral capsule TID, Cough, 0 2013 Medical Refill(s) [place] Acetaminophen 650 mg=2 tab, PO, Active [place] 325 MG Oral Q4H, Pain 2013 Medical Tablet 1-3/Temp > 99.5 Center F, 0 Refill(s) Warfarin 5 mg, 1 tab, Inactive [place] Route: PO, Drug 2013 Medical form: TAB, Q5PM, Center Dosing Weight 83, kg, Start date: 07/06/14 17:00:00, Duration: 1 doses or times, Stop date: 07/06/14 17:00:00Notes: Nurse to ensure documentation of patient education per anticoagulation policy. Avoid large intake of vitamin-K containing foods diet. (Same As: Coumadin) cefpodoxime 100 mg, Route: Inactive [place] PO, Drug form: 2013 Medical TAB, [id number], Center Dosing Weight 83, kg, Priority: NOW, Start date: 07/06/14 11:17:00, Duration: 7 day, Stop date: 07/12/14 23:17:00 benzonatate 100 mg, 1 cap, No Longer [place] Route: PO, Drug Active 2013 Medical form: CAP, TID, Center Dosing Weight 83, kg, PRN Cough, Start date: 07/06/14 2:28:00, Duration: 30 day, Stop date: 08/05/14 2:27:00Notes: (Same As: Simran Red) "Do Not Crush" Mag-Ox 400 800 mg, 2 tab, Inactive [place] Route: PO, Drug 2013 Medical form: TAB, ONCE, Center Dosing Weight 83, kg, Start date: 07/05/14 15:55:00, Stop date: 07/05/14 15:55:00Notes: (Same as: Mag-Ox 400) Magnesium oxide [id number] elemental magnesium Dose=____mg magnesium oxide (___mg elemental magnesium) Lactated Ringers 1,000 mL, Rate: Inactive [facility] IV 1000 mL 100 ml/hr, Infuse 2013 Medical over: 10 hr, Center Route: IV, Dosing Weight 83 kg, Total Volume: 1,000, Start date: 07/05/14 11:26:00, Duration: 30 day, Stop date: 08/04/14 11:25:00 Lactated Ringers 1,000 mL, Rate: No Longer [facility] IV 1,000 mL 100 ml/hr, Infuse Active 2013 Medical over: 10 hr, Center Route: IV, Dosing Weight 83 kg, Total Volume: 1,000, Priority: STAT, Start date: 07/05/14 10:06:00, Duration: 30 day, Stop date: 08/04/14 10:05:00 Magnesium 2 gm, 50 mL, Inactive [facility] Sulfate Route: IVPB, Drug 2013 Medical form: INJ, ONCE, Center Dosing Weight 83, kg, Total dose=2 gm, Start date: 07/05/14 10:05:00, Duration: 1 doses or times, Stop date: 07/05/14 10:05:00 normal saline 1,000 mL, Rate: Inactive [facility] 0.9% IV 1,000 mL 125 ml/hr, Infuse 2013 Medical over: 8 hr, Center Route: IV, Dosing Weight 83 kg, Total Volume: 1,000, Start date: 07/05/14 9:24:00, Duration: 1 day, Stop date: 07/06/14 9:23:00 Rocephin 1 gm, Route: No Longer [facility] IVPB, Drug form: Active 2013 Medical PDR/INJ, [id number], Center Dosing Weight 83, kg, Start date: 07/05/14 8:00:00, Duration: 30 day, Stop date: 08/03/14 8:00:00Notes: Use with 100ml NS mini-bag PLUS and infuse over 30 min ZyPREXA 2.5 mg, 1 tab, Inactive [facility] Route: PO, Drug 2013 Medical form: TAB, Center Bedtime, Start date: 07/04/14 21:00:00, Duration: 1 doses or times, Stop date: 07/04/14 21:00:00Notes: (Same as: ZyPREXA) Geodon 5 mg, Route: IM, Inactive [facility] Q4H, Dosing 2013 Medical Weight 83, kg, Center Start date: 07/04/14 21:00:00, Duration: 30 day, Stop date: 08/03/14 20:00:00 ZyPREXA 2.5 mg, 1 tab, No Longer [facility] Route: PO, Drug Active 2013 Medical form: TAB, Q6H, Center PRN Agitation, Start date: 07/04/14 17:08:00, Duration: 30 day, Stop date: 08/03/14 17:07:00Notes: (Same as: ZyPREXA) folic acid 1 mg 1 mg, 1 tab, No Longer [facility] oral tablet Route: PO, Drug Active 2013 Medical form: TAB, Daily, Center Start date: 07/04/14 17:00:00, Duration: 30 day, Stop date: 08/03/14 9:00:00Notes: (Same as: Folvite) Sodium Chloride 250 mL, Rate: 999 Inactive [facility] 0.9% IV 250 mL ml/hr, Infuse 2013 Medical over: 0.3 hr, Center Route: IV, Dosing Weight 83 kg, Total Volume: 250, Start date: 07/04/14 14:45:00, Duration: 1 doses or times, Stop date: 07/04/14 15:02:00 Sodium Chloride 500 mL, Rate: 999 Inactive [facility] 0.9% IV 500 mL ml/hr, Infuse 2013 Medical over: 0.5 hr, Center Route: IV, Dosing Weight 83 kg, Total Volume: 500, Start date: 07/04/14 14:44:00, Duration: 1 doses or times, Stop date: 07/04/14 15:13:00 Benadryl 25 mg, 1 cap, Inactive [facility] Route: PO, Drug 2013 Medical form: CAP, ONCE, Center Dosing Weight 83, kg, PRN Itching, Start date: 07/04/14 12:20:00, Stop date: 08/03/14 13:19:00Notes: (Same as: Benadryl) Ativan 1 mg, 0.5 mL, Inactive [place] Route: IV, Drug 2013 Medical form: INJ, Center ONCALL, Dosing Weight 83, kg, Start date: 07/04/14 4:00:00, Duration: 1 doses or times, Stop date: 07/05/14 0:00:00Notes: (Same as: Ativan) heparin, porcine 5,000 unit, 1 mL, No Longer [facility] Route: SUB-Q, Active 2013 Medical Drug form: INJ, Center Q8H, Dosing Weight 83, kg, Start date: 07/04/14 0:00:00, Duration: 30 day, Stop date: 08/02/14 16:00:00Notes: porcine heparin aspirin 325 mg 325 mg, 1 tab, No Longer [facility] tablet Route: PO, Drug Active 2013 Medical form: ECTAB, Center Daily, Dosing Weight 83, kg, Start date: 07/03/14 22:00:00, Duration: 30 day, Stop date: 08/01/14 22:00:00Notes: (Do Not Crush) Do not crush or chew. atorvastatin 20 mg, 1 tab, No Longer [facility] Route: PO, Drug Active 2013 Medical form: TAB, Center Bedtime, Dosing Weight 83, kg, Start date: 07/03/14 21:00:00, Stop date: 08/01/14 21:00:00Notes: (Same As: Lipitor) sennosides, [facility]UR[facility] 8.6 mg, 1 tab, No Longer [facility] Route: PO, Drug Active 2013 Medical Form: TAB, Dosing Center Weight 83, kg, BID, Start date: 07/03/14 17:00:00, Duration: 30 day, Stop date: 08/02/14 9:00:00Notes: (Same as: Senokot) pantoprazole 40 mg, Route: Inactive [place] IVP, Drug form: 2013 Medical INJ, Before Center Dinner, Dosing Weight 79.545, kg, Start date: 07/03/14 16:30:00, Duration: 30 day, Stop date: 08/01/14 16:30:00Notes: For IV push reconstitute with 10 ml 0.9% sodium chloride and push over 2 minutes. (Same as: Protonix) Sodium Chloride 1,000 mL, Rate: No Longer [place] 0.154 MEQ/ML 75 ml/hr, Infuse Active 2013 Medical Injectable over: 13.3 hr, [place] Solution Route: IV, Dosing Weight 83 kg, Total Volume: 1,000, Start date: 07/03/14 16:25:00, Duration: 12 hr, Stop date: 07/04/14 4:24:00 Thiamine 100 mg, 1 tab, No Longer [facility] Route: PO, Drug Active 2013 Medical form: TAB, Daily, Center Dosing Weight 83, kg, Start date: 07/03/14 12:00:00, Duration: 30 day, Stop date: 08/02/14 9:00:00Notes: (Same As: Vitamin B1) 1 tab, Route: PO, No Longer [place] Multivitamins Drug Form: TAB, Active 2013 Medical with Folic Acid Dosing Weight 83, Center 0.8 mg oral kg, Daily, Start tablet date: 07/03/14 12:00:00, Duration: 30 day, Stop date: 08/02/14 9:00:00 Saline Flush 10 ml, Route: No Longer [place] 0.9% IVP, Drug Form: Active 2013 Medical INJ, Dosing Center Weight 79.545, kg, Q12H, Start date: 07/03/14 9:00:00, Duration: 30 day, Stop date: 08/01/14 21:00:00Notes: (Same as: BD Posiflush) pneumococcal 0.5 ml, Route: Inactive [facility] capsular IM, Drug Form: 2013 Medical polysaccharide INJ, Daily, Start Center type 1 vaccine / date: 07/03/14 pneumococcal 9:00:00, capsular Duration: 1 doses polysaccharide or times, Stop type 10A vaccine date: 07/03/14 / pneumococcal 9:00:00Notes: capsular (Same as: polysaccharide Pneumovax 23) type 11A vaccine Refrigerate / pneumococcal capsular polysaccharide type 12F vaccine / pneumococcal capsular polysacchar Influenza Virus 0.5 mL, Route: Inactive [facility] Vaccine, IM, Drug Form: 2013 Medical Inactivated SUSP, Daily, [place] [id number]-71 Start date: 07 (H3N2)-like 07/03/14 9:00:00, virus Duration: 1 doses (L-Pricqbr-270-2 or times, Stop 007 [facility] X-175C) date: 07/03/14 strain / 9:00:00Notes: Influenza Virus (Same as: Fluzone Vaccine, Quadrivalent) Inactivated J-[id number]-74-20 07, IVR-148 (H1N1) strain / Influenza Virus Vaccine, Inactivated, B-Dgqxacp-2 -lik Docusate 100 mg, 1 cap, No [...] Cardizem) magnesium 2 gm, 50 mL, Inactive [facility] sulfate Route: IVPB, Drug 2013 Medical form: INJ, Q2H, Center Start date: 07/03/14 6:00:00, Duration: 2 doses or times, Stop date: 07/03/14 8:00:00 calcium 3,000 mg, 30 mL, Inactive [facility] gluconate + Route: IV, ONCE, 2013 Medical Sodium Chloride Start date: [place] 0.9% IV 100 mL 07/03/14 6:00:00, Stop date: 07/03/14 6:00:00 Sodium Chloride 500 mL, 500 Inactive [facility] 0.154 MEQ/ML ml/hr, Infuse 2013 Medical Injectable Over: 1 hr, [place] Solution Route: IV, 500, Drug form: INJ, ONCE, Priority: STAT, Dosing Weight 83 kg, Start date: 07/03/14 3:50:00, Duration: 1 doses or times, Stop date: 07/03/14 3:50:00 Omnipaque 300 50 ml, Route: Inactive 07/03[facility] INTRAARTERIAL, 2013 Medical Dosing Weight [...] Acetaminophen 650 mg, 2 tab, No Longer [place] Route: PO, Drug Active 2013 Medical form: TAB, Q4H, Center Dosing Weight 79.545, kg, PRN Pain 1-3/Temp > 99.5 F, Start date: 07/02/14 22:10:00, Duration: 30 day, Stop date: 08/01/14 22:09:00Notes: Do not exceed 4 gm/day. (Same as: Tylenol) Bisacodyl 10 mg, 1 supp, No Longer [place] Route: [place], Drug Active 2013 Medical form: SUPP, Center Daily, Dosing Weight 79.545, kg, PRN Constipation, Start date: 07/02/14 22:10:00, Duration: 30 day, Stop date: 08/01/14 22:09:00Notes: (Same As: Dulcolax, Bisco-Lax) Nicardipine 40 mg, 200 mL, No Longer [place] Rate: Start at 5 Active 2013 Medical mg/hr., Dosing Center Weight 79.545, kg, Route: IV, Total Volume: 200, Titrate to maintain SBP 140-180mmHg., Start Date: 07/02/14 22:10:00, Duration: 30 day, Stop date: 08/01/14 22:09:00, Replace Every: 24 hrNotes: Same as: Cardene Concentration: (0.2 mg /1 ml ) Enalapril 0.625 mg, 0.5 mL, No Longer [place] Route: IVP, Drug Active 2013 Medical form: [...] 07/02/14 21:54:00 iodixanol 125 mL, Route: Inactive [facility] IVP, Drug Form: 2013 Medical SOLN, Dosing Center Weight 79.545, kg, ONCALL, STAT, Start date: 07/02/14 21:53:00, Duration: 1 doses or times, Dose=2.2ml/kg, Max ujsr=[id number] -- "To be infused by Radiology Staff ONLY"Special Instructions: Dose=2.2ml/kg, Max feos=238hh -- "To be infused by Radiology Staff ONLY" aspirin 0 Refill(s) No Longer [facility] Active 2013 [facility] Saline Flush 10 mL, Route: No Longer [facility] 0.9% IVP, Drug Form: Active 2013 [facility] INJ, kg, PRN, PRN [place] Flush, Start date: 07/02/14 21:34:00, Duration: 30 day, Stop date: 08/01/14 20:33:00Notes: (Same as: BD Posiflush) Allergies, Adverse Reactions, Alerts Substance Category Reaction Severity Reaction Status Date Comments Source type Reported sulfa drugs Assertion Drug Active [facility] Immunizations Immunization Date Given Site Status Last Comments Source Updated pneumococcal 07/04/2014 Left completed [facility] 23-valent vaccine [facility] influenza virus 07/04/2014 Right completed [facility] vaccine, [facility] Results Order Name Results Value Reference Date Interpretation Comments Source Range URINE AND Occult Bld Negative Negative 07/07 [facility] STOOL [facility] (07/07/14 3:42 PM) Center ELECTROLYTE AGAP 14.5 meq/L 10.0 - 07/07 [facility] S 20.0 [facility] ELECTROLYTE Potassium Lvl 4.5 meq/L 3.5 - 5.1 07/07 [facility] S [facility] ELECTROLYTE Sodium Lvl 142 meq/L 135 - 145 07/07 [facility] S [facility] ELECTROLYTE Calcium Lvl 8.6 mg/dL 8.5 - 10.5 07/07 [facility] S [facility] ELECTROLYTE CO2 22 meq/L 24 - 32 07/07 [facility] S [facility] ELECTROLYTE Chloride Lvl 110 meq/L 95 - 109 07/07 [facility] S [facility] ELECTROLYTE eGFR 58 07/07 1Result Comment: The eGFR is calculated using the CKD-EPI formula. In most young, healthy individuals the eGFR will be > 90 mL/min/1.73m2. The eGFR declines with age. An eGFR of 60-89 may be normal in [facility] mL/min/1. some populations, particularly the elderly, for whom the CKD-EPI formula has not been extensively validated. Use of the eGFR is not recommended in the following populations: [address] Individuals with unstable creatinine concentrations, including [...] Creatinine 1.0 mg/dL 0.5 - 1.4 07/07 [facility] Lvl [facility] ELECTROLYTE BUN 23 mg/dL 7 - 07/07 [facility] S [facility] ELECTROLYTE Glucose Lvl 97 mg/dL 70 - 99 07/07 4Interpretive Data: Adult reference range values reflect the clinical guidelines [facility] of the [place] [employer]. [facility] HEMATOLOGY PT 12.7 s 12.0 - 07/07 [facility] . [facility] HEMATOLOGY INR 0.95 0.85 - 07/07 10Interpretive Data: RECOMMENDED RANGES FOR PROTIME INR: [facility] 1.17 2.0-3.0 for most medical and [...] HEMATOLOGY Lymphocytes 32.6 % 20.0 - 07/07 [facility] 40.0 /2013 [facility] HEMATOLOGY Segs 48.6 % 45.0 - 07/07 [facility] 75.0 /2013 [facility] HEMATOLOGY PT 13.9 s 12.0 - 07/07 [facility] 14.7 [facility] HEMATOLOGY INR 1.07 0.85 - 07/07 11Interpretive Data: RECOMMENDED RANGES FOR PROTIME INR: [facility] 1. 2.0-3.0 for most medical and surgical thromboembolic states. Medical 2.5-3.5 for artificial heart valves and recurrent embolism. Center INR SHOULD BE USED ONLY FOR PATIENTS ON STABLE ANTICOAGULANT THERAPY. HEMATOLOGY PTT 35.0 s 22.9 - 07/07 13Interpretiv [facility] 35.8 e Data: [facility] Therapeutic Range: 57 - 92 Seconds ANEMIA Folate Lvl 14.3 ng/mL >=3.0 07/06 [facility] STUDY ng/mL [facility] ANEMIA Vitamin B12 908 pg/mL 254 - 1320 07/06 [facility] STUDY Lvl [facility] [...] [facility] Plt Morph Normal 07/06 [facility] (07/06/14 2:30 AM) [place] HEMATOLOGY Lymphocytes 31.6 % 20.0 - 07/06 40. [facility] HEMATOLOGY RBC Morph Normal 07/06 [facility] (07/06/14 2:30 AM) Center HEMATOLOGY [...] CARDIAC Troponin-I 0.02 ng/mL 0.00 - 07/05 [facility] ENZYMES 0.40 [facility] [...] HEMATOLOGY MCV 98.0 fL 80.0 - 07/05 [facility] 98.0 [facility] HEMATOLOGY [...] eGFR of 60-89 may be normal in [facility] mL/min/1.7 some populations, particularly the elderly, for whom the CKD-EPI formula has not been extensively validated. Use of the eGFR is not recommended in the following populations: [address] Individuals with unstable creatinine concentrations, including [...] values reflect the clinical guidelines of the [place] [employer]. [facility] Center CHEM PANEL AGAP 12.5 meq/L 10.0 - 07/05 . [facility] DRUG SCREEN U Phencyc Scr Negative Negative 07/05 Medical *NA* [place] (07/04/14 7:50 PM) DRUG SCREEN UDS Note [...] SCREEN U Cocaine Scr Negative Negative 07/05 [facility] *NA* Center (07/04/14 7:50 PM) DRUG SCREEN U Opiate Scr Negative Negative 07/05 [facility] *NA* Center (07/04/14 7:50 PM) DRUG SCREEN U Amph Scr Negative Negative 07/05 [facility] *NA* Center (07/04/14 7:50 PM) URINE AND UA <=1.0 0.1 - 1.0 07/05 [facility] Urobilinogen mg/dL [facility] URINE AND UA RBC 1 /HPF 0 - 2 07/05 [facility] URINE AND UA Mucus Few /LPF None Seen 07/05 [place] STOOL /LPF [facility] URINE AND UA Hyal Cast 1 /LPF 0 - 2 07/05 [facility] URINE AND UA WBC 9 /HPF 0 - 5 07/05 [facility] URINE AND UA Glucose Negative Negative 07/05 [facility] mg/dL mg/dL [facility] URINE AND UA Ketones Negative Negative 07/05 [facility] mg/dL mg/dL [facility] URINE AND UA pH 5.0 5.0 - 8.0 07/05 [facility] URINE AND UA Protein Negative Negative 07/05 [facility] mg/dL mg/dL [facility] URINE AND UA Spec Grav 1.010 <=1.030 07/05 [facility] URINE AND UA Leuk Est Moderate Negative 07/05 [facility] *ABN* Center (07/04/14 7:50 PM) URINE AND UA Sq Epi Few /LPF Few /LPF 07/05 [facility] URINE AND UA Bili Negative Negative 07/05 [facility] Medical *NA* [place] (07/04/14 7:50 PM) URINE AND UA Blood Negative Negative 07/05 [facility] (07/04/14 7:50 PM) Center URINE AND UA Nitrite Negative Negative 07/05 [facility] (07/04/14 7:50 PM) Center URINE AND UA Color Yellow Yellow 07/05 [facility] Medical *NA* Center (07/04/14 7:50 PM) URINE AND UA Turbidity Clear Clear 07/05 [facility] (07/04/14 7:50 PM) [place] CHEM PANEL Lactic Acid 1.0 mMol/L 0.5 - 2.2 07/04 [facility] CHEM PANEL [...] eGFR of 60-89 may be normal in [facility] mL/min/1. some populations, particularly the elderly, for whom the CKD-EPI formula has not been extensively validated. Use of the eGFR is not recommended in the following populations: [place] [address] Center Individuals with unstable creatinine concentrations, including [...] values reflect the clinical guidelines of the [place] [employer]. [facility] CHEM PANEL BUN 12 mg/dL 7 - 22 07/04 [facility] CHEM PANEL Creatinine 0.9 mg/dL 0.5 - 1.4 07/04 [facility] HEMATOLOGY INR 1.14 0.85 - 07/04 12Interpretive Data: RECOMMENDED RANGES FOR PROTIME INR: [facility] . 2.0-3.0 for most medical and surgical thromboembolic states. Medical 2.5-3.5 for artificial heart valves and recurrent embolism. Center INR SHOULD BE USED ONLY FOR PATIENTS ON STABLE ANTICOAGULANT THERAPY. HEMATOLOGY PTT 26.0 s 22.9 - 07/04 14Interpretiv [facility] 35.8 2014 e Data: [facility] Therapeutic Range: 57 - 92 Seconds HEMATOLOGY PT 14.7 s 12.0 - 07/04 [facility] 14.7 [facility] PARATHYROID Ca Norm WB 1.06 1.05 - 07/04 [facility] PROFILE mMol/L . [facility] PARATHYROID Ca Ion WB 1.06 1.05 - 07/04 [facility] PROFILE mMol/L . [facility] DRUG SCREEN UDS Note See Note 9 07/03 9Interpretive Data: Drugs reported as positive have not been confirmed by a second method and should be used for medical purposes only. To order Medical *NA* confirmation, contact laboratory. [place] (07/03/14 10:50 AM) note: Below are cut-off [...] SCREEN U Opiate Scr Negative Negative 07/03 [facility] [place] (07/03/14 10:50 AM) DRUG SCREEN U Phencyc Scr Negative Negative 07/03 [facility] *NA* [place] (07/03/14 10:50 AM) DRUG SCREEN U Cocaine Scr Negative Negative 07/03 [facility] [place] (07/03/14 10:50 AM) DRUG SCREEN U Benzodia Negative Negative 07/03 [facility] *NA* [place] (07/03/14 10:50 AM) DRUG SCREEN U Cannab Scr Negative Negative 07/03 [facility] [place] (07/03/14 10:50 AM) DRUG SCREEN U Amph Scr Negative Negative 07/03 [facility] *NA* [place] (07/03/14 10:50 AM) DRUG SCREEN U Shauna Scr Negative Negative 07/03 [facility] *NA* [place] (07/03/14 10:50 AM) LIPIDS CHD Risk 1.95 [...] Hgb A1C 4.9 % <=5.6 % 07/03 [facility] CHEMISTRY [facility] URINE AND UA <=1.0 0.1 - 1.0 07/03 [facility] Urobilinogen mg/dL [facility] URINE AND UA Bacteria Occasional None Seen 07/03 [facility] STOOL /HPF /HPF /2013 [facility] URINE AND UA Mucus Few /LPF None Seen 07/03 [facility] STOOL /LPF [facility] URINE AND UA Amorph Occasional None Seen 07/03 [facility] STOOL Christin /HPF /HPF [facility] URINE AND UA Sq Epi Occasional Few /LPF 07/03 [facility] /LPF [facility] URINE AND UA WBC 4 /HPF 0 - 5 07/03 [facility] URINE AND UA Nitrite Negative Negative 07/03 [facility] (07/03/14 10:50 AM) [place] URINE AND UA Blood Negative Negative 07/03 [facility] (07/03/14 10:50 AM) [place] URINE AND UA Ketones Negative Negative 07/03 [facility] mg/dL mg/dL [facility] URINE AND UA RBC 2 /HPF 0 - 2 07/03 [facility] URINE AND UA Leuk Est Negative Negative 07/03 [facility] (07/03/14 10:50 AM) [place] URINE AND UA Color Light Yellow Yellow 07/03 [facility] *NA* [place] (07/03/14 10:50 AM) URINE AND UA pH 5.0 5.0 - 8.0 07/03 [facility] URINE AND UA Bili Negative Negative 07/03 [facility] Medical *NA* [place] (07/03/14 10:50 AM) URINE AND UA Glucose Negative Negative 07/03 [facility] mg/dL mg/dL [facility] URINE AND UA Turbidity Slight Clear 07/03 [facility] *ABN* [place] (07/03/14 10:50 AM) URINE AND UA Spec Grav 1.007 <=1.030 07/03 [facility] URINE AND UA Protein Negative Negative 07/03 [facility] mg/dL mg/dL [facility] BACTERIAL - MRSA by PCR Negative 16 07/03 16Interpretive Data: Interpretive Data: The Ker[employer] LightCycler MRSA assay is a qualitative test for the direct detection of nasal colonization with methicillin-resistant Staphylococcus aureus (MRSA) to aid [facility] in the prevention and control of MRSA infections in healthcare settings. A positive result does not indicate an infection or require treatment. A negative result does not exclude colonization or infection. [facility] (07/03/14 3:11 AM) Center The polymerase chain reaction (PCR) assay detects a proprietary sequence indicative of the integration of the SCCmec cassette into the Staphylococcus aureus chromosome, indicating the presence of MRSA D NA. The assay utilizes FDA cleared IVD reagents. Performance characteristics have been verified by the Molecular Diagnostic Laboratory within the [facility]. The Molecular Diagnostic Labor atory is authorized under the Clinical Laboratory Improvement Amendment of 1988 (CLIA-88) to perform high complexity testing. CARDIAC Troponin-I null 0.00 - 07/03 [facility] ENZYMES 0.40 [facility] CARDIAC Total CK 51 unit/L 12 - 191 07/03 [facility] CHEM PANEL [...] - 07/03 15Interpretiv [place] 35.8 e Data: [facility] Heparin Center Therapeutic Range: 57 - 92 Seconds PARATHYROID Ca Norm WB 1.01 1.05 - 07/03 [facility] PROFILE mMol/L 1. [facility] PARATHYROID Ca Ion WB 1.04 1.05 - 07/03 [facility] PROFILE mMol/L 1.25 [facility] CARDIAC Troponin-T 0.031 0.000 - 07/03 [facility] ENZYMES ng/mL 0.100 [facility] BLOOD BANK Antibody Scrn Negative 07/03 [facility] RESULTS [facility] (07/02/14 11:20 PM) [place] BLOOD BANK ABO/Rh O POS 07/03 [facility] RESULTS [facility] CARDIAC Troponin-I null 0.00 - 07/03 [facility] ENZYMES 0.40 [facility] CARDIAC Total CK 59 unit/L 12 - 191 07/03 [facility] ENZYMES [facility] CARDIAC CK MB 0.7 ng/mL 0.5 - 3.6 07/03 [facility] ENZYMES [facility] CARDIAC CK MB Index 1.2 0.0 - 2.5 07/03 [facility] ENZYMES [facility] HEMATOLOGY Basophils # 0.0 K/CMM 0.0 - 0.2 07/03 [facility] HEMATOLOGY RBC Morph Normal 07/03 [facility] (07/02/14 10:15 PM) [place] HEMATOLOGY Plt Morph Normal 07/03 [facility] (07/02/14 10:15 PM) [place] CHEM PANEL POC 1.2 mg/dL 0.5 - 1.4 07/03 [facility] Creatinine [facility] Vital [...] For Provider Date Date Visit [facility] [id number] Korin 07/03 07/08 [facility] [place] [facility] Outpatient [id number] SONIA 12/15 Active [facility] [place] Outpatient [id number] SONIA 03/16 [facility] Outpatient [id number] SONIA 07/20 Active [facility] Outpatient [id number] SONIA 11/09 [facility] Outpatient [id number] SONIA 03/08 [facility] [place] Procedures Procedure Code Date Perfomer Comments Source Splenectomy [id number] [facility]
--- OUTSIDE RECORDS SUMMARY | 2018-12-08 17:03 | XMS REPORT ---
:1945 Author Organization eClinicalWorks Care Team Providers Name Role Phone [place] Do Provider Role Unavailable Allergies, Adverse Reactions, Alerts Substance Reaction Event Type Sulfa Info Not Available Drug Allergy Problems Problem Type Condition Code Onset Dates Condition Status Problem Closed Colles'' fracture of right S52.531A Active radius, initial encounter Problem Pain in joint of right wrist M25.531 Active Problem Closed Colles'' fracture of right S52.531D Active radius with routine healing, subsequent encounter Assessment Closed Colles'' fracture of right S52.531D Active radius with routine healing, subsequent encounter Assessment Pain in joint of right wrist M25.531 Active Medications Medication Code System Code Instructions Start End Date Status Dosage Date Carbidopa-Levod [facility] 13343-75 Active not defined opa 12-07 Xarelto [facility] 22931-09 Active not defined 77-10 [place] [address]-55 Active not defined 81-02 Tylenol # 3 NDC 0 300/30mg PO Q Nov 03, Active one tab 4-6 HRS PRN PAIN 2018 Tylenol # 3 NDC 0 Active not defined Results No Known Results Summary Purpose eClinicalWorks Submission
--- OUTSIDE RECORDS SUMMARY | 2018-12-08 17:03 | XMS REPORT ---
[...] encounter Assessment Closed Colles'' fracture of right S52.531A Active radius, initial encounter Assessment Pain in joint of right wrist M25.531 Active Medications Medication Code System Code Instructions Start End Date Status Dosage Date Omeprazole [facility] 83806-31 Active not defined 81-02 Tylenol # 3 NDC 0 Active not defined Xarelto [facility] 47667-98 Active not defined 77-10 Carbidopa-Levod [facility] 07790-22 Active not defined opa 12-07 Tylenol # 3 NDC 0 300/30mg PO Q Nov 03, Active one tab 4-6 HRS PRN PAIN 2019 Results No Known Results Summary Purpose eClinicalWorks Submission
--- OUTSIDE RECORDS SUMMARY | 2018-12-08 17:03 | XMS REPORT ---
[...] in joint of right wrist M25.531 Active Assessment Closed Colles'' fracture of right S52.531D Active radius with routine healing, subsequent encounter Medications Medication Code Code Instructions Start End Status Dosage System Date Date Carbidopa-Levo [facility] [address]-95 Active not dopa defined Xarelto [facility] [address]-03 Active not defined Tylenol # 3 NDC 0 Active not defined Omeprazole [facility] [id number] Active not defined Tylenol # 3 NDC 0 300/30mg PO Q Nov 03, Active one tab 4-6 HRS PRN 2019 PAIN Results No Known Results Summary Purpose eClinicalWorks Submission
--- NOTE | 2018-12-08 17:08 | EDPHYS ---
Physician Documentation [facility] Name: Ning Coffey Age: 73 yrs Sex: Female : 1945 Arrival Date: 12/08/2018 Time: 14:50 Bed 12 Private MD: Reddy Francois ED Physician Shlomo Harvey HPI: 12/08 17:05 This 73 yrs old Female presents to ER via Ambulatory with complaints of Fall snw Injury. 17:05 Details of fall: The patient fell from an upright position, while walking. Onset: The snw symptoms/episode began/occurred suddenly, just prior to arrival. Associated injuries: The patient sustained palmar aspect of right forearm, abrasion, contusion, skin tear. Severity of symptoms: At their worst the symptoms were mild, moderate. The patient has experienced a previous episode, approximately [address] Do. 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 - Social history:: Smoking status: Patient/guardian denies using tobacco. - Ebola Screening: : No symptoms or risks identified at this time. ROS: 17:03 Constitutional: Negative for fever, chills, and weight loss, Eyes: Negative for injury, snw pain, redness, and discharge, ENT: Negative for injury, pain, and discharge, Neck: Negative for injury, pain, and swelling, Cardiovascular: Negative for chest pain, palpitations, and edema, Respiratory: Negative for shortness of breath, cough, wheezing, and pleuritic chest pain, Abdomen/GI: Negative for abdominal pain, nausea, vomiting, diarrhea, and constipation, Back: Negative for injury and pain, MS/Extremity: 6 week ago pt fell and scraped right elbow, + wrist fx. Pt have been in sugartong cast x 4 weeks. Last week she was placed in a short arm cast and area superior to the cast was mildly erythematous. Pt pivoted and fell onto elbow today and sustained a skin tear to area. 17:03 Neuro: Negative for headache, weakness, numbness, tingling, and seizure, Psych: Negative for depression, anxiety, suicide ideation, homicidal ideation, and hallucinations. 17:03 Skin: Positive for skin tear. Exam: 17:01 Constitutional: This is a well developed, well nourished patient who is awake, alert, snw and in no acute distress. Head/Face: Normocephalic, atraumatic. Eyes: Pupils equal round and reactive to light, extra-ocular motions intact. Lids and lashes normal. Conjunctiva and sclera are non-icteric and not injected. Cornea within normal limits. Periorbital areas with no swelling, redness, or edema. ENT: Nares patent. No nasal discharge, no septal abnormalities noted. Tympanic membranes are normal and external auditory canals are clear. Oropharynx with no redness, swelling, or masses, exudates, or evidence of obstruction, uvula midline. Mucous membranes moist. Neck: Trachea midline, no thyromegaly or masses palpated, and no cervical lymphadenopathy. Supple, full range of motion without nuchal rigidity, or vertebral point tenderness. No Meningismus. Chest/axilla: Normal chest wall appearance and motion. Nontender with no deformity. No lesions are appreciated. Cardiovascular: Regular rate and rhythm with a normal S1 and S2. No gallops, murmurs, or rubs. Normal PMI, no JVD. No pulse deficits. Respiratory: Lungs have equal breath sounds bilaterally, clear to auscultation and percussion. No rales, rhonchi or wheezes noted. No increased work of breathing, no retractions or nasal flaring. Abdomen/GI: Soft, non-tender, with normal bowel sounds. No distension or tympany. No guarding or rebound. No evidence of tenderness throughout. Back: No spinal tenderness. No costovertebral tenderness. Full range of motion. MS/ Extremity: Pulses equal, no cyanosis. Neurovascular intact. Full, normal range of motion. Neuro: Awake and alert, GCS 15, oriented to person, place, time, and situation. Cranial nerves II-XII grossly intact. Motor strength 5/5 in all extremities. Sensory grossly intact. Cerebellar exam normal. Normal gait. Psych: Awake, alert, with orientation to person, place and time. Behavior, mood, and affect are within normal limits. 17:01 Skin: Appearance: Color: normal in color, Temperature: normal temperature, Moisture: normal moisture, injury, contusion(s), that are deep, of the palmar aspect of right forearm, skin tear - area had been under cast until last week, today pt fell onto area s/p "pivoting" and sustained a new skin tear. The area is mildly erythematous.. Vital Signs: 15:16 BP 114 / 74; Pulse 86; Resp 16 S; Temp 97.0(TE); Pulse Ox 98% on R/A; Weight 68.04 kg aa5 (R); Height 5 ft. 3 in. (160.02 cm) (R); Pain 7/10; 15:16 Body Mass Index 26.57 (68.04 kg, 160.02 cm) aa5 MDM: 16:53 Patient medically screened. snw 17:08 Data reviewed: vital signs, nurses notes. Data interpreted: Pulse oximetry: on room air snw is 98 %. Interpretation: normal. Counseling: I had a detailed discussion with the patient and/or guardian regarding: the historical points, exam findings, and any diagnostic results supporting the discharge/admit diagnosis, radiology results, the need for outpatient follow up, to return to the emergency department if symptoms worsen or persist or if there are any questions or concerns that arise at home. Special discussion: I discussed in detail with the patient the higher chance of wound infection based on his presenting history. Based on the history and exam findings, there is no indication for further emergent testing or inpatient evaluation. I discussed with the patient/guardian the need to see the primary care provider for further evaluation of the symptoms. 12/08 15:18 Order name: Elbow Right 3 View XRAY; Complete Time: 16:53 aa5 12/08 17:01 Order name: Wound Care; Complete Time: 17:33 snw 12/08 17:01 Order name: Wound dressing: nonstick and then coban; Complete Time: 17:33 snw Administered Medications: 17:25 Drug: KeFLEX 500 mg Route: PO; iw 17:25 Drug: [place] 5 mg-325 mg 1 tabs Route: PO; iw 17:33 Drug: Hibiclens 4 % 1 application Route: Topical; Site: affected area; iw Disposition: 17:46 Co-signature as Attending Physician, Shlomo Harvey MD. rn Disposition: 12/08/18 17:07 Discharged to Home. Impression: Fall on same level, unspecified, Abrasion of right elbow - skin tear. - Condition is Stable. - Discharge Instructions: Fall Prevention in the Home, Skin Tear Care, Deep Skin Avulsion. - Prescriptions for Keflex 500 mg Oral Capsule - take 1 capsule by ORAL route every 8 hours for 10 days; 30 capsule. - Medication Reconciliation Form, Thank You Letter, Antibiotic Education, Prescription Opioid Use form. - Follow up: Private Physician; When: 2 - 3 days; Reason: Recheck today's complaints, Continuance of care, Re-evaluation by your physician. Follow up: Emergency Department; When: As needed; Reason: Worsening of condition. Signatures: Dispatcher [employer] EDMS Marylu Saab, INFORMATICS COORDINATOR-C INFORMATICS COORDINATOR-Csnw Denisse Cason, RN RN Shlomo Shook MD MD rn Calderon, Audri, RN RN aa5 Corrections: (The following items were deleted from the chart) 15:19 15:17 Immunization history: Last tetanus immunization: unknown, aa5 aa5 17:33 17:07 12/08/2018 17:07 Discharged to Home. Impression: Fall on same level, unspecified; iw Abrasion of right elbow - skin tear. Condition is Stable. Forms are Medication Reconciliation Form, Thank You Letter, Antibiotic Education, Prescription Opioid Use. Follow up: Private Physician; When: 2 - 3 days; Reason: Recheck today's complaints, Continuance of care, Re-evaluation by your physician. Follow up: Emergency Department; When: As needed; Reason: Worsening of condition. snw
--- NOTE | 2018-12-08 17:08 | ER ---
Nurse's Notes [facility] Name: Ning Coffey Age: 73 yrs Sex: Female : 1945 Arrival Date: 12/08/2018 Time: 14:50 Bed 12 Private MD: Reddy Francois Diagnosis: Fall on same level, unspecified;Abrasion of right elbow-skin tear Presentation: 12/08 15:15 Presenting complaint: Patient states: "I fell on to my elbow today". Skin tear noted to aa5 right elbow, dressing applied. Pt c/o right elbow pain. Cast noted to right wrist and forearm. Care prior to arrival: None. Mechanism of Injury: Fall from standing position. 15:15 Acuity: DANIELLE 4 aa5 15:15 Method Of Arrival: Ambulatory aa5 15:16 Transition of care: patient was not received from another setting of care. Onset of iw symptoms was December 08, 2018. Risk Assessment: Do you want to hurt yourself or someone else? Patient reports no desire to harm self or others. Initial Sepsis Screen: Does the patient meet any 2 criteria? No. Patient's initial sepsis screen is negative. Does the patient have a suspected source of infection? No. Patient's initial sepsis screen is negative. 16:00 Onset of symptoms was December 08, 2018 at 15:00. iw Triage Assessment: 17:30 General: Appears in no apparent distress. Behavior is calm, cooperative. 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 - Social history:: Smoking status: Patient/guardian denies using tobacco. - Ebola Screening: : No symptoms or risks identified at this time. Screenin:30 Abuse screen: Denies threats or abuse. Denies injuries from another. Nutritional iw screening: No deficits noted. Tuberculosis screening: No symptoms or risk factors identified. Fall Risk None identified. Assessment: 17:00 General: Appears in no apparent distress. comfortable, Behavior is calm, cooperative. iw Pain: Complains of pain in right elbow and palmar aspect of right forearm. Neuro: Level of Consciousness is awake, alert, obeys commands, Moves all extremities. Cardiovascular: Patient's skin is warm and dry. Respiratory: Respiratory effort is even, unlabored. Derm: Skin is fragile, is thin, has skin tears on right elbow area. Musculoskeletal: Range of motion: intact in all extremities. Vital Signs: 15:16 BP 114 / 74; Pulse 86; Resp 16 S; Temp 97.0(TE); Pulse Ox 98% on R/A; Weight 68.04 kg aa5 (R); Height 5 ft. 3 in. (160.02 cm) (R); Pain 7/10; 15:16 Body Mass Index 26.57 (68.04 kg, 160.02 cm) aa5 ED Course: 14:50 Patient arrived in ED. mr 14:50 Reddy Francois is Private Physician. mr 15:15 Arm band placed on. aa5 15:16 Triage completed. aa5 16:11 X-ray completed. Portable x-ray completed in exam room. Patient tolerated procedure ls3 well. 16:12 Elbow Right 3 View XRAY In Process Unspecified. EDMS 16:49 Denisse Cason, CHIDI is Primary Nurse. iw 16:53 Marylu Saab F[facility]-C [facility]. snw 16:53 Shlomo Harvey MD is Attending Physician. snw 17:30 Patient has correct armband on for positive identification. iw 17:32 No provider procedures requiring assistance completed. Patient did not have IV access iw during this emergency room visit. Administered Medications: 17:25 Drug: KeFLEX 500 mg Route: PO; iw 17:25 Drug: [place] 5 mg-325 mg 1 tabs Route: PO; iw 17:33 Drug: Hibiclens 4 % 1 application Route: Topical; Site: affected area; iw Outcome: 17:07 Discharge ordered by . snw 17:32 Discharged to home ambulatory, with family. iw 17:32 Condition: good 17:32 Discharge instructions given to patient, family, Instructed on discharge instructions, follow up and referral plans. medication usage, Demonstrated understanding of instructions, follow-up care, medications, Prescriptions given X 1. 17:33 Patient left the ED. iw Signatures: Dispatcher [employer] EDMS Marylu Saab FNP-C STRUCTURAL ENGINEERING TECHNICIAN-Sofia Vee mr Denisse Cason RN RN iw Lisa Howard RN RN aa5 Sai Cole ls3 Corrections: (The following items were deleted from the chart) 15:17 15:16 BP 114 / 74; Pulse 86bpm; Resp 16bpm; Spontaneous; Pulse Ox 98% RA; Temp 97.0F aa5 Temporal; aa5 15:17 15:16 BP 114 / 74; Pulse 86bpm; Resp 16bpm; Spontaneous; Pulse Ox 98% RA; Temp 97.0F aa5 Temporal; 68.04 kg Reported; Height 5 ft. 3 in. Reported; BMI: 26.5; Pain 5/10; aa5 15:19 15:17 Immunization history: Last tetanus immunization: unknown, aa5 aa5
[2018-12-08] MEDS ORDERED: HYDROCODONE/APAP 5/325 MG TAB ONE (17:31)
[2018-12-08] MEDS ORDERED: CEPHALEXIN 250 MG CAP ONE (17:32)
[2018-12-08 17:38] VITALS: BP 114/74; TEMP 97; O2SAT 98
== END 2018-12-08 17:33 | disposition home or self-care (01) ==
LOC: ER 14:48
DX: S50.311A Abrasion of right elbow, initial encounter (principal); W01.0XXA Fall on same level from slipping, tripping and stumbling without subsequent striking against object, initial encounter; Y93.01 Activity, walking, marching and hiking; G20 Parkinson's disease; Z88.2 Allergy status to sulfonamides; Z86.73 Personal history of transient ischemic attack (TIA), and cerebral infarction without residual deficits
CPT/HCPCS: 99283

== ENCOUNTER 2018-12-18 14:23 | Emergency (ER) | payer OTHER, MEDICARE ==
--- OUTSIDE RECORDS SUMMARY | 2018-12-18 14:28 | XMS REPORT | Continuity of Care Document ---
:1945 Author Organization Interface Problems Problem Status Onset Classification Date Comments Source Date Reported ACUTE STROKE Active [address] ACUTE STROKE Active [address] SARAH Active [facility] BILLING [address] [place] [address] CVA Active [address] DVT (<span Resolved Problem 07/10/2014 [facility] ID="[id number] Medical 97">Confirmed Center </span>) CVA Active [facility] Medications Medication Details Route Status Patient Ordering Order Source Instructions Provider Date Warfarin 7.5 mg, 1 tab, Inactive [facility] Route: PO, Drug 2013 Medical form: TAB, Q5PM, Center Dosing Weight 83, kg, Start date: 07/07/14 17:00:00, Duration: 1 doses or times, Stop date: 07/07/14 17:00:00Notes: Nurse to ensure documentation of patient education per anticoagulation policy. Avoid large intake of vitamin-K containing foods diet. (Same As: Coumadin) atorvastatin 20 20 mg=1 tab, PO, Active 07/07[facility] mg oral tablet Bedtime, # 30 2014 Medical tab, 3 Refill(s) Center aspirin 325 mg 325 mg=1 tab, PO, Active 07/07[facility] tablet Daily, # 100 tab, 2014 Medical 3 Refill(s) Center warfarin 7.5 mg 7.5 mg, PO, Q5PM, Active 07/07[facility] oral tablet # 5 tab, 0 2013 Medical Refill(s) Center OLANZapine 2.5 2.5 mg=1 tab, PO, Active 07/07[facility] mg oral tablet Q6H, Agitation, 0 2013 Medical Refill(s) Center 0.4 mg=1 tab, PO, Active 07/07[facility] Multivitamins Daily, 0 2013 Medical with Folic Acid Refill(s) Center 0.4 mg oral tablet Folic Acid 1 MG 1 mg=1 tab, PO, Active 07/07[facility] Oral Tablet Daily, 0 2013 Medical Refill(s) [place] Docusate Sodium 100 mg=1 cap, PO, Active [place] 100 MG Oral Q12H, 0 Refill(s) 2013 Medical Capsule Center benzonatate 100 100 mg=1 cap, PO, Active [facility] mg oral capsule TID, Cough, 0 2013 Medical Refill(s) [place] Acetaminophen 650 mg=2 tab, PO, Active [place] 325 MG Oral Q4H, Pain 2013 Medical Tablet 1-3/Temp > 99.5 Center F, 0 Refill(s) Warfarin 5 mg, 1 tab, Inactive [place] Route: PO, Drug 2013 Medical form: TAB, Q5PM, Center Dosing Weight 83, kg, Start date: 07/06/14 17:00:00, Duration: 1 doses or times, Stop date: 07/06/14 17:00:00Notes: Nurse to ensure documentation of patient education per anticoagulation policy. Avoid large intake of vitamin-K containing foods diet. (Same As: Coumadin) cefpodoxime 100 mg, Route: Inactive [place] PO, Drug form: 2013 Medical TAB, [id number], Center Dosing Weight 83, kg, Priority: NOW, Start date: 07/06/14 11:17:00, Duration: 7 day, Stop date: 07/12/14 23:17:00 benzonatate 100 mg, 1 cap, No Longer [place] Route: PO, Drug Active 2013 Medical form: CAP, TID, Center Dosing Weight 83, kg, PRN Cough, Start date: 07/06/14 2:28:00, Duration: 30 day, Stop date: 08/05/14 2:27:00Notes: (Same As: Simran Red) "Do Not Crush" Mag-Ox 400 800 mg, 2 tab, Inactive [place] Route: PO, Drug 2013 Medical form: TAB, ONCE, Center Dosing Weight 83, kg, Start date: 07/05/14 15:55:00, Stop date: 07/05/14 15:55:00Notes: (Same as: Mag-Ox 400) Magnesium oxide [id number] elemental magnesium Dose=____mg magnesium oxide (___mg elemental magnesium) Lactated Ringers 1,000 mL, Rate: Inactive [facility] IV 1000 mL 100 ml/hr, Infuse 2013 Medical over: 10 hr, Center Route: IV, Dosing Weight 83 kg, Total Volume: 1,000, Start date: 07/05/14 11:26:00, Duration: 30 day, Stop date: 08/04/14 11:25:00 Lactated Ringers 1,000 mL, Rate: No Longer [facility] IV 1,000 mL 100 ml/hr, Infuse Active 2013 Medical over: 10 hr, Center Route: IV, Dosing Weight 83 kg, Total Volume: 1,000, Priority: STAT, Start date: 07/05/14 10:06:00, Duration: 30 day, Stop date: 08/04/14 10:05:00 Magnesium 2 gm, 50 mL, Inactive [facility] Sulfate Route: IVPB, Drug 2013 Medical form: INJ, ONCE, Center Dosing Weight 83, kg, Total dose=2 gm, Start date: 07/05/14 10:05:00, Duration: 1 doses or times, Stop date: 07/05/14 10:05:00 normal saline 1,000 mL, Rate: Inactive [facility] 0.9% IV 1,000 mL 125 ml/hr, Infuse 2013 Medical over: 8 hr, Center Route: IV, Dosing Weight 83 kg, Total Volume: 1,000, Start date: 07/05/14 9:24:00, Duration: 1 day, Stop date: 07/06/14 9:23:00 Rocephin 1 gm, Route: No Longer [facility] IVPB, Drug form: Active 2013 Medical PDR/INJ, [id number], Center Dosing Weight 83, kg, Start date: 07/05/14 8:00:00, Duration: 30 day, Stop date: 08/03/14 8:00:00Notes: Use with 100ml NS mini-bag PLUS and infuse over 30 min ZyPREXA 2.5 mg, 1 tab, Inactive [facility] Route: PO, Drug 2013 Medical form: TAB, Center Bedtime, Start date: 07/04/14 21:00:00, Duration: 1 doses or times, Stop date: 07/04/14 21:00:00Notes: (Same as: ZyPREXA) Geodon 5 mg, Route: IM, Inactive [facility] Q4H, Dosing 2013 Medical Weight 83, kg, Center Start date: 07/04/14 21:00:00, Duration: 30 day, Stop date: 08/03/14 20:00:00 ZyPREXA 2.5 mg, 1 tab, No Longer [facility] Route: PO, Drug Active 2013 Medical form: TAB, Q6H, Center PRN Agitation, Start date: 07/04/14 17:08:00, Duration: 30 day, Stop date: 08/03/14 17:07:00Notes: (Same as: ZyPREXA) folic acid 1 mg 1 mg, 1 tab, No Longer [facility] oral tablet Route: PO, Drug Active 2013 Medical form: TAB, Daily, Center Start date: 07/04/14 17:00:00, Duration: 30 day, Stop date: 08/03/14 9:00:00Notes: (Same as: Folvite) Sodium Chloride 250 mL, Rate: 999 Inactive [facility] 0.9% IV 250 mL ml/hr, Infuse 2013 Medical over: 0.3 hr, Center Route: IV, Dosing Weight 83 kg, Total Volume: 250, Start date: 07/04/14 14:45:00, Duration: 1 doses or times, Stop date: 07/04/14 15:02:00 Sodium Chloride 500 mL, Rate: 999 Inactive [facility] 0.9% IV 500 mL ml/hr, Infuse 2013 Medical over: 0.5 hr, Center Route: IV, Dosing Weight 83 kg, Total Volume: 500, Start date: 07/04/14 14:44:00, Duration: 1 doses or times, Stop date: 07/04/14 15:13:00 Benadryl 25 mg, 1 cap, Inactive [facility] Route: PO, Drug 2013 Medical form: CAP, ONCE, Center Dosing Weight 83, kg, PRN Itching, Start date: 07/04/14 12:20:00, Stop date: 08/03/14 13:19:00Notes: (Same as: Benadryl) Ativan 1 mg, 0.5 mL, Inactive [place] Route: IV, Drug 2013 Medical form: INJ, Center ONCALL, Dosing Weight 83, kg, Start date: 07/04/14 4:00:00, Duration: 1 doses or times, Stop date: 07/05/14 0:00:00Notes: (Same as: Ativan) heparin, porcine 5,000 unit, 1 mL, No Longer [facility] Route: SUB-Q, Active 2013 Medical Drug form: INJ, Center Q8H, Dosing Weight 83, kg, Start date: 07/04/14 0:00:00, Duration: 30 day, Stop date: 08/02/14 16:00:00Notes: porcine heparin aspirin 325 mg 325 mg, 1 tab, No Longer [facility] tablet Route: PO, Drug Active 2013 Medical form: ECTAB, Center Daily, Dosing Weight 83, kg, Start date: 07/03/14 22:00:00, Duration: 30 day, Stop date: 08/01/14 22:00:00Notes: (Do Not Crush) Do not crush or chew. atorvastatin 20 mg, 1 tab, No Longer [facility] Route: PO, Drug Active 2013 Medical form: TAB, Center Bedtime, Dosing Weight 83, kg, Start date: 07/03/14 21:00:00, Stop date: 08/01/14 21:00:00Notes: (Same As: Lipitor) sennosides, LONGTERM 8.6 mg, 1 tab, No Longer [facility] Route: PO, Drug Active 2013 Medical Form: TAB, Dosing Center Weight 83, kg, BID, Start date: 07/03/14 17:00:00, Duration: 30 day, Stop date: 08/02/14 9:00:00Notes: (Same as: Senokot) pantoprazole 40 mg, Route: Inactive [place] IVP, Drug form: 2013 Medical INJ, Before Center Dinner, Dosing Weight 79.545, kg, Start date: 07/03/14 16:30:00, Duration: 30 day, Stop date: 08/01/14 16:30:00Notes: For IV push reconstitute with 10 ml 0.9% sodium chloride and push over 2 minutes. (Same as: Protonix) Sodium Chloride 1,000 mL, Rate: No Longer [place] 0.154 MEQ/ML 75 ml/hr, Infuse Active 2013 Medical Injectable over: 13.3 hr, [place] Solution Route: IV, Dosing Weight 83 kg, Total Volume: 1,000, Start date: 07/03/14 16:25:00, Duration: 12 hr, Stop date: 07/04/14 4:24:00 Thiamine 100 mg, 1 tab, No Longer [facility] Route: PO, Drug Active 2013 Medical form: TAB, Daily, Center Dosing Weight 83, kg, Start date: 07/03/14 12:00:00, Duration: 30 day, Stop date: 08/02/14 9:00:00Notes: (Same As: Vitamin B1) 1 tab, Route: PO, No Longer [place] Multivitamins Drug Form: TAB, Active 2013 Medical with Folic Acid Dosing Weight 83, Center 0.8 mg oral kg, Daily, Start tablet date: 07/03/14 12:00:00, Duration: 30 day, Stop date: 08/02/14 9:00:00 Saline Flush 10 ml, Route: No Longer [place] 0.9% IVP, Drug Form: Active 2013 Medical INJ, Dosing Center Weight 79.545, kg, Q12H, Start date: 07/03/14 9:00:00, Duration: 30 day, Stop date: 08/01/14 21:00:00Notes: (Same as: BD Posiflush) pneumococcal 0.5 ml, Route: Inactive [facility] capsular IM, Drug Form: 2013 Medical polysaccharide INJ, Daily, Start Center type 1 vaccine / date: 07/03/14 pneumococcal 9:00:00, capsular Duration: 1 doses polysaccharide or times, Stop type 10A vaccine date: 07/03/14 / pneumococcal 9:00:00Notes: capsular (Same as: polysaccharide Pneumovax 23) type 11A vaccine Refrigerate / pneumococcal capsular polysaccharide type 12F vaccine / pneumococcal capsular polysacchar Influenza Virus 0.5 mL, Route: Inactive [facility] Vaccine, IM, Drug Form: 2013 Medical Inactivated SUSP, Daily, [place] T-Ylesqrid-10 Start date: 07 (H3N2)-like 07/03/14 9:00:00, virus Duration: 1 doses (S-Rzpdfhf-266-2 or times, Stop 007 [facility] X-175C) date: 07/03/14 strain / 9:00:00Notes: Influenza Virus (Same as: Fluzone Vaccine, Quadrivalent) Inactivated Z-Vhtyidrq-07-20 07, IVR-148 (H1N1) strain / Influenza Virus Vaccine, Inactivated, K-Gfnhewm-2 -lik Docusate 100 mg, 1 cap, No [...] Cardizem) magnesium 2 gm, 50 mL, Inactive [facility] sulfate Route: IVPB, Drug 2013 Medical form: INJ, Q2H, Center Start date: 07/03/14 6:00:00, Duration: 2 doses or times, Stop date: 07/03/14 8:00:00 calcium 3,000 mg, 30 mL, Inactive [facility] gluconate + Route: IV, ONCE, 2013 Medical Sodium Chloride Start date: [place] 0.9% IV 100 mL 07/03/14 6:00:00, Stop date: 07/03/14 6:00:00 Sodium Chloride 500 mL, 500 Inactive [facility] 0.154 MEQ/ML ml/hr, Infuse 2013 Medical Injectable Over: 1 hr, [place] Solution Route: IV, 500, Drug form: INJ, ONCE, Priority: STAT, Dosing Weight 83 kg, Start date: 07/03/14 3:50:00, Duration: 1 doses or times, Stop date: 07/03/14 3:50:00 Omnipaque 300 50 ml, Route: Inactive 07/03[facility] Joycelyn INTRAARTERIAL, 2013 Medical Dosing Weight Center [...] Acetaminophen 650 mg, 2 tab, No Longer [place] Route: PO, Drug Active 2013 Medical form: TAB, Q4H, Center Dosing Weight 79.545, kg, PRN Pain 1-3/Temp > 99.5 F, Start date: 07/02/14 22:10:00, Duration: 30 day, Stop date: 08/01/14 22:09:00Notes: Do not exceed 4 gm/day. (Same as: Tylenol) Bisacodyl 10 mg, 1 supp, No Longer [place] Route: WA, Drug Active 2013 Medical form: SUPP, Center Daily, Dosing Weight 79.545, kg, PRN Constipation, Start date: 07/02/14 22:10:00, Duration: 30 day, Stop date: 08/01/14 22:09:00Notes: (Same As: Dulcolax, Bisco-Lax) Nicardipine 40 mg, 200 mL, No Longer [place] Rate: Start at 5 Active 2013 Medical mg/hr., Dosing Center Weight 79.545, kg, Route: IV, Total Volume: 200, Titrate to maintain SBP 140-180mmHg., Start Date: 07/02/14 22:10:00, Duration: 30 day, Stop date: 08/01/14 22:09:00, Replace Every: 24 hrNotes: Same as: Cardene Concentration: (0.2 mg /1 ml ) Enalapril 0.625 mg, 0.5 mL, No Longer [place] Route: IVP, Drug Active 2013 Medical form: [...] 07/02/14 21:54:00 iodixanol 125 mL, Route: Inactive [facility] IVP, Drug Form: 2013 Medical SOLN, Dosing Center Weight 79.545, kg, ONCALL, STAT, Start date: 07/02/14 21:53:00, Duration: 1 doses or times, Dose=2.2ml/kg, Max zzse=[id number] -- "To be infused by Radiology Staff ONLY"Special Instructions: Dose=2.2ml/kg, Max rura=[id number] -- "To be infused by Radiology Staff ONLY" aspirin 0 Refill(s) No Longer [facility] Active 2013 [facility] Saline Flush 10 mL, Route: No Longer [facility] 0.9% IVP, Drug Form: Active 2013 [facility] INJ, kg, PRN, PRN [place] Flush, Start date: 07/02/14 21:34:00, Duration: 30 day, Stop date: 08/01/14 20:33:00Notes: (Same as: BD Posiflush) Allergies, Adverse Reactions, Alerts Substance Category Reaction Severity Reaction Status Date Comments Source type Reported sulfa drugs Assertion Drug Active [facility] Immunizations Immunization Date Given Site Status Last Comments Source Updated pneumococcal 07/04/2014 Left completed [facility] 23-valent vaccine [facility] influenza virus 07/04/2014 Right completed [facility] vaccine, [facility] Results Order Name Results Value Reference Date Interpretation Comments Source Range URINE AND Occult Bld Negative Negative 07/07 [facility] STOOL Stl [facility] (07/07/14 3:42 PM) Center ELECTROLYTE AGAP 14.5 meq/L 10.0 - 07/07 [facility] S 20.0 [facility] ELECTROLYTE Potassium Lvl 4.5 meq/L 3.5 - 5.1 07/07 [facility] S [facility] ELECTROLYTE Sodium Lvl 142 meq/L 135 - 145 07/07 [facility] S [facility] ELECTROLYTE Calcium Lvl 8.6 mg/dL 8.5 - 10.5 07/07 [facility] S [facility] ELECTROLYTE CO2 22 meq/L 24 - 32 07/07 [facility] S [facility] ELECTROLYTE Chloride Lvl 110 meq/L 95 - 109 07/07 [facility] S [facility] ELECTROLYTE eGFR 58 07/07 1Result Comment: The eGFR is calculated using the CKD-EPI formula. In most young, healthy individuals the eGFR will be > 90 mL/min/1.73m2. The eGFR declines with age. An eGFR of 60-89 may be normal in [facility] mL/min/1. some populations, particularly the elderly, for whom the CKD-EPI formula has not been extensively validated. Use of the eGFR is not recommended in the following populations: [address] Individuals with unstable creatinine concentrations, including [...] Creatinine 1.0 mg/dL 0.5 - 1.4 07/07 [facility] Lvl [facility] ELECTROLYTE BUN 23 mg/dL 7 - 07/07 [facility] S [facility] ELECTROLYTE Glucose Lvl 97 mg/dL 70 - 99 07/07 4Interpretive Data: Adult reference range values reflect the clinical guidelines [facility] of the [place] [employer]. [facility] HEMATOLOGY PT 12.7 s 12.0 - 07/07 [facility] . [facility] HEMATOLOGY INR 0.95 0.85 - 07/07 10Interpretive Data: RECOMMENDED RANGES FOR PROTIME INR: [facility] 1.17 2.0-3.0 for most medical and surgical thromboembolic states. Medical 2.5-3.5 for artificial heart valves and recurrent embolism. Center INR SHOULD BE USED ONLY FOR PATIENTS ON STABLE ANTICOAGULANT THERAPY. HEMATOLOGY RDW 13.8 % 11.5 - 07/07 [place] 14.5 [facility] HEMATOLOGY RBC 3.59 M/CMM 4.20 - 07/07 [place] 5.40 [facility] HEMATOLOGY WBC 12.1 K/CMM 3.7 - 10.4 07/07 [facility] HEMATOLOGY Hgb 11.5 g/dL 12.0 - 07/07 [place] 16.0 [facility] HEMATOLOGY Hct 36.0 % 36.0 - 07/07 [place] 48.0 [facility] HEMATOLOGY MCV 100.3 fL 80.0 - 07/07 [place] 98.0 /2013 [facility] HEMATOLOGY MCH 32.0 pg 27.0 - 07/07 [place] 31.0 [facility] HEMATOLOGY MCHC 31.9 g/dL 32.0 - 07/07 36.0 [facility] HEMATOLOGY MPV 11.4 fL 7.4 - 10.4 07/07 [facility] HEMATOLOGY Platelet 175 K/CMM 133 - 450 07/07 [facility] HEMATOLOGY Monocytes 14.9 % 2.0 - 12.0 07/07 [facility] HEMATOLOGY Eosinophils 3.5 % 0.0 - 4.0 07/07 [facility] HEMATOLOGY Basophils 0.4 % 0.0 - 1.0 07/07 [facility] HEMATOLOGY Lymphocytes # 3.9 K/CMM 1.0 - 5.5 07/07 [facility] HEMATOLOGY Monocytes # 1.8 K/CMM 0.0 - 0.8 07/07 [facility] HEMATOLOGY Segs-Bands # 5.9 K/CMM 1.5 - 8.1 07/07 [facility] HEMATOLOGY Eosinophils # 0.4 K/CMM 0.0 - 0.5 07/07 [facility] HEMATOLOGY Macrocyte 1+ None Seen 07/07 Medical *ABN* Center (07/07/14 1:00 AM) HEMATOLOGY Lymphocytes 32.6 % 20.0 - 07/07 [facility] 40.0 /2013 [facility] HEMATOLOGY Segs 48.6 % 45.0 - 07/07 [facility] 75.0 /2013 [facility] HEMATOLOGY PT 13.9 s 12.0 - 07/07 [facility] 14.7 [facility] HEMATOLOGY INR 1.07 0.85 - 07/07 11Interpretive Data: RECOMMENDED RANGES FOR PROTIME INR: [facility] 1. 2.0-3.0 for most medical and surgical thromboembolic states. Medical 2.5-3.5 for artificial heart valves and recurrent embolism. Center INR SHOULD BE USED ONLY FOR PATIENTS ON STABLE ANTICOAGULANT THERAPY. HEMATOLOGY PTT 35.0 s 22.9 - 07/07 13Interpretiv [facility] 35.8 e Data: [facility] Center Therapeutic Range: 57 - 92 Seconds ANEMIA Folate Lvl 14.3 ng/mL >=3.0 07/06 [facility] STUDY ng/mL [facility] ANEMIA Vitamin B12 908 pg/mL 254 - 1320 07/06 [facility] STUDY Lvl [facility] ANEMIA UIBC 245 ug/dl 110 - 370 07/06 [facility] ANEMIA % Satur Fe 18 % 12 - 57 07/06 [facility] ANEMIA Iron 52 ug/dl 30 - 160 07/06 [facility] ANEMIA TIBC 297 ug/dl 228 - 428 07/06 [facility] ANEMIA Transferrin 227 mg/dL 212 - 360 07/06 [facility] HEMATOLOGY Monocytes 15.2 % 2.0 - 12.0 07/06 [facility] HEMATOLOGY Eosinophils # 0.3 K/CMM 0.0 - 0.5 07/06 [facility] HEMATOLOGY Monocytes # 1.6 K/CMM 0.0 - 0.8 07/06 [facility] HEMATOLOGY Basophils 0.4 % 0.0 - 1.0 07/06 [facility] HEMATOLOGY Eosinophils 3.2 % 0.0 - 4.0 07/06 [facility] HEMATOLOGY Lymphocytes # 3.4 K/CMM 1.0 - 5.5 07/06 [facility] HEMATOLOGY Segs-Bands # 5.3 K/CMM 1.5 - 8.1 07/06 [facility] HEMATOLOGY Segs 49.6 % 45.0 - 07/06 75.0 [facility] HEMATOLOGY Plt Morph Normal 07/06 [facility] (07/06/14 2:30 AM) [place] HEMATOLOGY Lymphocytes 31.6 % 20.0 - 07/06 40. [facility] HEMATOLOGY RBC Morph Normal 07/06 [facility] (07/06/14 2:30 AM) Center HEMATOLOGY WBC 10.6 K/CMM 3.7 - 10.4 07/06 [facility] HEMATOLOGY MCV 97.8 fL 80.0 - 07/06 98.0 [facility] HEMATOLOGY Hct 37.0 % 36.0 - 07/06 48. [facility] HEMATOLOGY Hgb 12.1 g/dL 12.0 - 07/06 16. [facility] HEMATOLOGY RBC 3.78 M/CMM 4.20 - 07/06 [place] 5. [facility] HEMATOLOGY MCHC 32.8 g/dL 32.0 - 07/06 [place] 36.0 [facility] HEMATOLOGY MCH 32.1 pg 27.0 - 07/06 [place] 31.0 [facility] HEMATOLOGY RDW 13.9 % 11.5 - 07/06 14. [facility] HEMATOLOGY MPV 12.2 fL 7.4 - 10.4 07/06 [facility] HEMATOLOGY Platelet 167 K/CMM 133 - 450 07/06 [facility] CARDIAC Troponin-T null 0.000 - 07/05 [place] ENZYMES 0.100 [facility] CARDIAC Total CK 123 unit/L 12 - 191 07/05 ENZYMES [facility] CARDIAC Troponin-I 0.02 ng/mL 0.00 - 07/05 [facility] ENZYMES 0.40 [facility] CARDIAC CK MB Index 1.0 0.0 - 2.5 07/05 ENZYMES [facility] CARDIAC CK MB 1.2 ng/mL 0.5 - 3.6 07/05 [facility] HEMATOLOGY Basophils 0.7 % 0.0 - 1.0 07/05 [facility] HEMATOLOGY Eosinophils 2.4 % 0.0 - 4.0 07/05 [facility] HEMATOLOGY Segs-Bands # 5.3 K/CMM 1.5 - 8.1 07/05 [facility] HEMATOLOGY Lymphocytes # 2.1 K/CMM 1.0 - 5.5 07/05 [facility] HEMATOLOGY Monocytes # 1.4 K/CMM 0.0 - 0.8 07/05 [facility] HEMATOLOGY Eosinophils # 0.2 K/CMM 0.0 - 0.5 07/05 [facility] HEMATOLOGY Basophils # 0.1 K/CMM 0.0 - 0.2 07/05 [facility] HEMATOLOGY Segs 58.2 % 45.0 - 07/05 [place] 75.0 [facility] HEMATOLOGY Monocytes 15.5 % 2.0 - 12.0 07/05 [facility] HEMATOLOGY Lymphocytes 23.2 % 20.0 - 07/05 [place] 40.0 [facility] HEMATOLOGY MCHC 33.0 g/dL 32.0 - 07/05 36.0 [facility] HEMATOLOGY RDW 14.0 % 11.5 - 07/05 [facility] [place] 14. [facility] HEMATOLOGY WBC 9.1 K/CMM 3.7 - 10.4 07/05 [facility] HEMATOLOGY RBC 3.13 M/CMM 4.20 - 07/05 5.40 [facility] HEMATOLOGY Hgb 10.1 g/dL 12.0 - 07/05 16.0 [facility] HEMATOLOGY Platelet 142 K/CMM 133 - 450 07/05 [facility] HEMATOLOGY MPV 12.1 fL 7.4 - 10.4 07/05 [facility] HEMATOLOGY Hct 30.7 % 36.0 - 07/05 48.0 [facility] HEMATOLOGY MCH 32.3 pg 27.0 - 07/05 31.0 [facility] HEMATOLOGY MCV 98.0 fL 80.0 - 07/05 [facility] 98.0 [facility] HEMATOLOGY Basophils # 0.1 K/CMM 0.0 - 0.2 07/05 [facility] CHEM PANEL Magnesium Lvl 1.6 mg/dL 1.8 - 2.4 07/05 [facility] CHEM PANEL Phosphorus 3.7 mg/dL 2.5 - 4.5 07/05 [facility] CHEM PANEL eGFR 76 07/05 2Result Comment: The eGFR is calculated using the CKD-EPI formula. In most young, healthy individuals the eGFR will be >90 mL/ min/1.73m2. The eGFR declines with age. An eGFR of 60-89 may be normal in [facility] mL/min/1.7 some populations, particularly the elderly, for whom the CKD-EPI formula has not been extensively validated. Use of the eGFR is not recommended in the following populations: [address] Individuals with unstable creatinine concentrations, including [...] CO2 25 meq/L 24 - 32 07/05 [facility] CHEM PANEL Calcium Lvl 8.3 mg/dL 8.5 - 10.5 07/05 [facility] CHEM PANEL Sodium Lvl 145 meq/L 135 - 145 07/05 [facility] CHEM PANEL BUN 15 mg/dL 7 - 22 07/05 [facility] CHEM PANEL Creatinine 0.8 mg/dL 0.5 - 1.4 07/05 [facility] CHEM PANEL Chloride Lvl 112 meq/L 95 - 109 07/05 [facility] CHEM PANEL Potassium Lvl 4.5 meq/L 3.5 - 5.1 07/05 [facility] CHEM PANEL Glucose Lvl 89 mg/dL 70 - 99 07/05 5Interpretive Data: Adult reference range values reflect the clinical guidelines of the [place] [employer]. [facility] CHEM PANEL AGAP 12.5 meq/L 10.0 - 07/05 . [facility] DRUG SCREEN U Phencyc Scr Negative Negative 07/05 Medical *NA* [place] (07/04/14 7:50 PM) DRUG SCREEN UDS Note [...] SCREEN U Cocaine Scr Negative Negative 07/05 [facility] *NA* Center (07/04/14 7:50 PM) DRUG SCREEN U Opiate Scr Negative Negative 07/05 [facility] *NA* Center (07/04/14 7:50 PM) DRUG SCREEN U Amph Scr Negative Negative 07/05 [facility] *NA* Center (07/04/14 7:50 PM) URINE AND UA <=1.0 0.1 - 1.0 07/05 [facility] Urobilinogen mg/dL [facility] URINE AND UA RBC 1 /HPF 0 - 2 07/05 [facility] URINE AND UA Mucus Few /LPF None Seen 07/05 [place] STOOL /LPF [facility] URINE AND UA Hyal Cast 1 /LPF 0 - 2 07/05 [facility] URINE AND UA WBC 9 /HPF 0 - 5 07/05 [facility] URINE AND UA Glucose Negative Negative 07/05 [facility] mg/dL mg/dL [facility] URINE AND UA Ketones Negative Negative 07/05 [facility] mg/dL mg/dL [facility] URINE AND UA pH 5.0 5.0 - 8.0 07/05 [facility] URINE AND UA Protein Negative Negative 07/05 [facility] mg/dL mg/dL [facility] URINE AND UA Spec Grav 1.010 <=1.030 07/05 [facility] URINE AND UA Leuk Est Moderate Negative 07/05 [facility] *ABN* Center (07/04/14 7:50 PM) URINE AND UA Sq Epi Few /LPF Few /LPF 07/05 [facility] URINE AND UA Bili Negative Negative 07/05 [facility] *NA* [place] (07/04/14 7:50 PM) URINE AND UA Blood Negative Negative 07/05 [facility] (07/04/14 7:50 PM) Center URINE AND UA Nitrite Negative Negative 07/05 [facility] (07/04/14 7:50 PM) Center URINE AND UA Color Yellow Yellow 07/05 [facility] Medical *NA* Center (07/04/14 7:50 PM) URINE AND UA Turbidity Clear Clear 07/05 [facility] (07/04/14 7:50 PM) [place] CHEM PANEL Lactic Acid 1.0 mMol/L 0.5 - 2.2 07/04 [facility] CHEM PANEL Globulin 2.5 g/dL 2.0 - 4.0 07/04 [facility] CHEM PANEL A/G Ratio 1.3 0.7 - 1.6 07/04 [facility] CHEM PANEL Bili Indirect 0.3 mg/dL 0.0 - 1.0 07/04 [facility] CHEM PANEL Total Protein 5.7 g/dL 6.4 - 8.4 07/04 [facility] CHEM PANEL Alk Phos 61 unit/L 39 - 136 07/04 [facility] CHEM PANEL Albumin Lvl 3.2 g/dL 3.5 - 5.0 07/04 [facility] CHEM PANEL ALT 21 unit/L 0 - 65 07/04 [facility] CHEM PANEL AST 16 unit/L 0 - 37 07/04 [facility] CHEM PANEL Bili Direct 0.1 mg/dL 0.0 - 0.3 07/04 [facility] CHEM PANEL Bili Total 0.4 mg/dL 0.2 - 1.3 07/04 [facility] CHEM PANEL Phosphorus 3.3 mg/dL 2.5 - 4.5 07/04 [facility] CHEM PANEL Magnesium Lvl 1.8 mg/dL 1.8 - 2.4 07/04 [facility] CHEM PANEL eGFR 66 07/04 3Result Comment: The eGFR is calculated using the CKD-EPI formula. In most young, healthy individuals the eGFR will be >90 mL/ min/1.73m2. The eGFR declines with age. An eGFR of 60-89 may be normal in [facility] mL/min/1. some populations, particularly the elderly, for whom the CKD-EPI formula has not been extensively validated. Use of the eGFR is not recommended in the following populations: [place] [id number] Center Individuals with unstable creatinine concentrations, including [...] AGAP 11.5 meq/L 10.0 - 07/04 20.0 [facility] CHEM PANEL Calcium Lvl 8.3 mg/dL 8.5 - 10.5 07/04 [facility] CHEM PANEL Sodium Lvl 144 meq/L 135 - 145 07/04 [facility] CHEM PANEL Potassium Lvl 4.5 meq/L 3.5 - 5.1 07/04 [facility] CHEM PANEL Chloride Lvl 113 meq/L 95 - 109 07/04 [facility] CHEM PANEL CO2 24 meq/L 24 - 32 07/04 [facility] CHEM PANEL Glucose Lvl 107 mg/dL 70 - 99 07/04 6Interpretive Data: Adult reference range values reflect the clinical guidelines of the [place] [employer]. [facility] CHEM PANEL BUN 12 mg/dL 7 - 22 07/04 [facility] CHEM PANEL Creatinine 0.9 mg/dL 0.5 - 1.4 07/04 [facility] HEMATOLOGY INR 1.14 0.85 - 07/04 12Interpretive Data: RECOMMENDED RANGES FOR PROTIME INR: [facility] . 2.0-3.0 for most medical and surgical thromboembolic states. Medical 2.5-3.5 for artificial heart valves and recurrent embolism. Center INR SHOULD BE USED ONLY FOR PATIENTS ON STABLE ANTICOAGULANT THERAPY. HEMATOLOGY PTT 26.0 s 22.9 - 07/04 14Interpretiv [facility] 35.8 2014 e Data: [facility] Therapeutic Range: 57 - 92 Seconds HEMATOLOGY PT 14.7 s 12.0 - 07/04 [facility] 14.7 [facility] PARATHYROID Ca Norm WB 1.06 1.05 - 07/04 [facility] PROFILE mMol/L . [facility] PARATHYROID Ca Ion WB 1.06 1.05 - 07/04 [facility] PROFILE mMol/L . [facility] DRUG SCREEN UDS Note See Note 9 07/03 9Interpretive Data: Drugs reported as positive have not been confirmed by a second method and should be used for medical purposes only. To order Medical *NA* confirmation, contact laboratory. [place] (07/03/14 10:50 AM) note: Below are cut-off [...] SCREEN U Opiate Scr Negative Negative 07/03 [facility] [place] (07/03/14 10:50 AM) DRUG SCREEN U Phencyc Scr Negative Negative 07/03 [facility] *NA* [place] (07/03/14 10:50 AM) DRUG SCREEN U Cocaine Scr Negative Negative 07/03 [facility] [place] (07/03/14 10:50 AM) DRUG SCREEN U Benzodia Negative Negative 07/03 [facility] *NA* [place] (07/03/14 10:50 AM) DRUG SCREEN U Cannab Scr Negative Negative 07/03 [facility] [place] (07/03/14 10:50 AM) DRUG SCREEN U Amph Scr Negative Negative 07/03 [facility] *NA* [place] (07/03/14 10:50 AM) DRUG SCREEN U Shauna Scr Negative Negative 07/03 [facility] *NA* [place] (07/03/14 10:50 AM) LIPIDS CHD Risk 1.95 3.90 - 07/03 [place] 5.80 /2013 [facility] LIPIDS VLDL 8 07/03 [facility] LIPIDS LDL 72 mg/dL <=99 mg/dL 07/03 [place] (Calculated) [facility] LIPIDS Trig 42 mg/dL <=149 07/03 [place] mg/dL [facility] LIPIDS Chol 164 mg/dL <=199 07/03 [place] mg/dL [facility] LIPIDS HDL 84 mg/dL >=61 mg/dL 07/03 7Result Comment: Medical Specimen Center Slightly Hemolyzed. SPECIAL Hgb A1C 4.9 % <=5.6 % 07/03 [facility] CHEMISTRY [facility] URINE AND UA <=1.0 0.1 - 1.0 07/03 [facility] Urobilinogen mg/dL [facility] URINE AND UA Bacteria Occasional None Seen 07/03 [facility] STOOL /HPF /HPF /2013 [facility] URINE AND UA Mucus Few /LPF None Seen 07/03 [facility] STOOL /LPF [facility] URINE AND UA Amorph Occasional None Seen 07/03 [facility] STOOL Christin /HPF /HPF [facility] URINE AND UA Sq Epi Occasional Few /LPF 07/03 [facility] /LPF [facility] URINE AND UA WBC 4 /HPF 0 - 5 07/03 [facility] URINE AND UA Nitrite Negative Negative 07/03 [facility] (07/03/14 10:50 AM) [place] URINE AND UA Blood Negative Negative 07/03 [facility] (07/03/14 10:50 AM) [place] URINE AND UA Ketones Negative Negative 07/03 [facility] mg/dL mg/dL [facility] URINE AND UA RBC 2 /HPF 0 - 2 07/03 [facility] URINE AND UA Leuk Est Negative Negative 07/03 [facility] (07/03/14 10:50 AM) [place] URINE AND UA Color Light Yellow Yellow 07/03 [facility] *NA* [place] (07/03/14 10:50 AM) URINE AND UA pH 5.0 5.0 - 8.0 07/03 [facility] URINE AND UA Bili Negative Negative 07/03 [facility] Medical *NA* [place] (07/03/14 10:50 AM) URINE AND UA Glucose Negative Negative 07/03 [facility] mg/dL mg/dL [facility] URINE AND UA Turbidity Slight Clear 07/03 [facility] *ABN* [place] (07/03/14 10:50 AM) URINE AND UA Spec Grav 1.007 <=1.030 07/03 [facility] URINE AND UA Protein Negative Negative 07/03 [facility] mg/dL mg/dL [facility] BACTERIAL - MRSA by PCR Negative 16 07/03 16Interpretive Data: Interpretive Data: The Kerri LightCycler MRSA assay is a qualitative test for the direct detection of nasal colonization with methicillin-resistant Staphylococcus aureus (MRSA) to aid [facility] in the prevention and control of MRSA infections in healthcare settings. A positive result does not indicate an infection or require treatment. A negative result does not exclude colonization or infection. [facility] (07/03/14 3:11 AM) Center The polymerase chain reaction (PCR) assay detects a proprietary sequence indicative of the integration of the SCCmec cassette into the Staphylococcus aureus chromosome, indicating the presence of MRSA D NA. The assay utilizes FDA cleared IVD reagents. Performance characteristics have been verified by the [facility] within the [facility]. The [facility] Labor atory is authorized under the Clinical Laboratory Improvement Amendment of 1988 (CLIA-88) to perform high complexity testing. CARDIAC Troponin-I null 0.00 - 07/03 [facility] ENZYMES 0.40 [facility] CARDIAC Total CK 51 unit/L 12 - 191 07/03 [facility] CHEM PANEL Phosphorus 2.8 mg/dL 2.5 - 4.5 07/03 [facility] CHEM PANEL Magnesium Lvl 1.7 mg/dL 1.8 - 2.4 07/03 [facility] CHEM PANEL Total Protein 5.6 g/dL 6.4 - 8.4 07/03 [facility] CHEM PANEL Albumin Lvl 3.0 g/dL 3.5 - 5.0 07/03 [facility] CHEM PANEL Globulin 2.6 g/dL 2.0 - 4.0 07/03 [facility] CHEM PANEL A/G Ratio 1.2 0.7 - 1.6 07/03 [facility] CHEM PANEL ALT 26 unit/L 0 - 65 07/03 [facility] CHEM PANEL Alk Phos 66 unit/L 39 - 136 07/03 [facility] CHEM PANEL AST 18 unit/L 0 - 37 07/03 [facility] CHEM PANEL Bili Indirect 0.1 mg/dL 0.0 - 1.0 07/03 [facility] CHEM PANEL Bili Total 0.2 mg/dL 0.2 - 1.3 07/03 [facility] CHEM PANEL Bili Direct 0.1 mg/dL 0.0 - 0.3 07/03 [facility] HEMATOLOGY PTT 28.0 s 22.9 - 07/03 15Interpretiv [place] 35.8 e Data: [facility] Therapeutic Range: 57 - 92 Seconds PARATHYROID Ca Norm WB 1.01 1.05 - 07/03 [facility] PROFILE mMol/L 1. [facility] PARATHYROID Ca Ion WB 1.04 1.05 - 07/03 [facility] PROFILE mMol/L 1.25 [facility] CARDIAC Troponin-T 0.031 0.000 - 07/03 [facility] ENZYMES ng/mL 0.100 [facility] BLOOD BANK Antibody Scrn Negative 07/03 [facility] RESULTS [facility] (07/02/14 11:20 PM) [place] BLOOD BANK ABO/Rh O POS 07/03 [facility] RESULTS [facility] CARDIAC Troponin-I null 0.00 - 07/03 [facility] ENZYMES 0.40 [facility] CARDIAC Total CK 59 unit/L 12 - 191 07/03 [facility] ENZYMES [facility] CARDIAC CK MB 0.7 ng/mL 0.5 - 3.6 07/03 [facility] ENZYMES [facility] CARDIAC CK MB Index 1.2 0.0 - 2.5 07/03 [facility] ENZYMES [facility] HEMATOLOGY Basophils # 0.0 K/CMM 0.0 - 0.2 07/03 [facility] HEMATOLOGY RBC Morph Normal 07/03 [facility] (07/02/14 10:15 PM) [place] HEMATOLOGY Plt Morph Normal 07/03 [facility] (07/02/14 10:15 PM) [place] CHEM PANEL POC 1.2 mg/dL 0.5 - 1.4 07/03 [facility] Creatinine [facility] Vital Signs Vital Sign Value Date Comments Source Systolic (mm Hg) 147 07/08/2014 [facility] Respitory Rate 35 07/08/2014 [facility] Diastolic (mm Hg) 74 07/08/2014 [facility] Respitory Rate 22 07/07/2014 [facility] Diastolic (mm Hg) 68 07/07/2014 [facility] Respitory Rate 20 07/07/2014 [facility] Systolic (mm Hg) 126 07/07/2014 [facility] Diastolic (mm Hg) 75 07/07/2014 [facility] Systolic (mm Hg) 118 07/07/2014 [facility] Heart Rate 69 07/04/2014 [facility] Heart Rate 72 07/04/2014 [facility] Heart Rate 67 07/04/2014 [facility] Height 162.56 cm 07/03/2014 [facility] Weight 83 07/03/2014 [facility] BMI Calculated 31.41 07/03/2014 [facility] Height 162.56 cm 07/03/2014 [facility] Weight 83 07/03/2014 [facility] BMI Calculated 31.41 07/03/2014 [facility] Temperature Oral (F) 97.0 F 07/03/2014 [facility] Temperature Oral (F) 97.9 F 07/03/2014 [facility] BMI Calculated 30.1 07/03/2014 [facility] Weight 79.545 07/03/2014 [facility] Height 162.56 cm 07/03/2014 [facility] Encounters Location Location Encounter Encounter Reason Attending ADM DC Status Source Details Type Number For Provider Date Date Visit [facility] [id number] [facility] 07/03 07/08 [facility] [place] [facility] Outpatient [id number] SONIA 12/15 Active [facility] [place] Outpatient [id number] SONIA 03/16 [facility] [place] Out[facility] [id number] SONIA 07/20 Active [facility] [place] Outpatient [id number] SONIA 11/09 [facility] [place] Outpatient [id number] SONIA 03/08 [facility] [place] Procedures Procedure Code Date Perfomer Comments Source Splenectomy [id number] [facility]
--- OUTSIDE RECORDS SUMMARY | 2018-12-18 14:29 | XMS REPORT ---
[...] Status Dosage System Date Date Carbidopa-Levo [facility] [address]-59 Active not dopa defined Xarelto [facility] [address]-02 Active not defined Tylenol # 3 NDC 0 Active not defined Omeprazole [facility] [id number] Active not defined Tylenol # 3 NDC 0 300/30mg PO Q Nov 03, Active one tab 4-6 HRS PRN 2019 PAIN Results No Known Results Summary Purpose eClinicalWorks Submission
--- OUTSIDE RECORDS SUMMARY | 2018-12-18 14:29 | XMS REPORT ---
[...] Start End Date Status Dosage Date Omeprazole [facility] 29827-74 Active not defined 81-02 Tylenol # 3 NDC 0 Active not defined Xarelto [facility] [address]-42 Active not defined 77-10 Carbidopa-Levod [facility] [address]53-59 Active not defined opa 12-07 Tylenol # 3 NDC 0 300/30mg PO Q Nov 03, Active one tab 4-6 HRS PRN PAIN 2019 Results No Known Results Summary Purpose eClinicalWorks Submission
--- OUTSIDE RECORDS SUMMARY | 2018-12-18 14:29 | XMS REPORT ---
[...] Dosage Date Carbidopa-Levod [facility] 11128-26 Active not defined opa 12-07 Xarelto [facility] 62567-01 Active not defined 77-10 [place] [address]-09 Active not defined 81-02 Tylenol # 3 NDC 0 300/30mg PO Q Nov 03, Active one tab 4-6 HRS PRN PAIN 2018 Tylenol # 3 NDC 0 Active not defined Results No Known Results Summary Purpose eClinicalWorks Submission
--- OUTSIDE RECORDS SUMMARY | 2018-12-18 14:29 | XMS REPORT ---
:1945 Author Organization eClinicalWorks Care Team Providers Name Role Phone [place] Do Provider Role Unavailable Allergies, Adverse Reactions, Alerts Substance Reaction Event Type Sulfa Info Not Available Drug Allergy Problems Problem Type Condition Code Onset Dates Condition Status Assessment Abrasion of right elbow, initial S50.311A Active encounter Problem Closed Colles'' fracture of right S52.531D Active radius with routine healing, subsequent encounter Problem Closed Colles'' fracture of right S52.531A Active radius, initial encounter Problem Abrasion of right elbow, initial S50.311A Active encounter Assessment Pain in joint of right wrist M25.531 Active Assessment Closed Colles'' fracture of right S52.531D Active radius with routine healing, subsequent encounter Problem Pain in joint of right wrist M25.531 Active Medications Medication Code Code Instructions Start End Status Dosage System Date Date Carbidopa-Levo [facility] [address]-74 Active not dopa defined Tylenol # 3 NDC 0 Active not defined Omeprazole [facility] [id number] Active not defined Xarelto [facility] [address]-52 Active not defined Tylenol # 3 NDC 0 300/30mg PO Q Nov 03, Active one tab 4-6 HRS PRN 2019 PAIN Results No Known Results Summary Purpose eClinicalWorks Submission
[2018-12-18 15:14] LABS: Absolute Lymphocytes (CBC) 2.2 K/uL (0.7-4.9); Absolute Monocytes 1.7 K/uL (0.1-1.3); Absolute Neutrophil 7.6 K/uL (1.8-8.0); Basophils % 0.8 % (0-1.3); Eosinophils % 4.9 % (0-4.4); Hematocrit 40.6 % (36.0-45.0); Lymphocytes % 18.3 % (15.3-44.8); MPV 10.2 fL (7.6-11.3); RBC Red Blood Cell Count 4.26 M/uL (3.86-4.86)
[2018-12-18 15:32] LABS: Albumin 3.5 g/dL (3.4-5.0); Bilirubin Total 0.4 mg/dL (0.2-1.0); C-Reactive Protein 15.4 mg/L (<3.00); Potassium 4.1 mmol/L (3.5-5.1); Protein, Total 7.1 g/dL (6.4-8.2)
--- NOTE | 2018-12-18 15:46 | ER ---
Nurse's Notes [facility] Name: Ning Coffey Age: 73 yrs Sex: Female : 1945 Arrival Date: 12/18/2018 Time: 14:25 Bed 25 Private MD: Reddy Francois Diagnosis: Hypersensitivity reaction Presentation: 12/18 14:29 Presenting complaint: Patient states: I was here for a fall and had a laceration to my la1 right elbow area, I was put on keflex and and have almost completed the course but I am having increased redness and swelling to that area. Transition of care: patient was not received from another setting of care. Onset of symptoms was December 18, 2018. Risk Assessment: Do you want to hurt yourself or someone else? Patient reports no desire to harm self or others. Initial Sepsis Screen: Does the patient meet any 2 criteria? No. Patient's initial sepsis screen is negative. Does the patient have a suspected source of infection? No. Patient's initial sepsis screen is negative. Care prior to arrival: None. 14:29 Method Of Arrival: Ambulatory la1 14:29 Acuity: DANIELLE 3 la1 Historical: - Allergies: 14:31 Sulfa (Sulfonamide Antibiotics); la1 - PMHx: 14:31 CVA; Parkinsons; la1 - Immunization history:: Adult Immunizations up to date. - Social history:: Smoking status: Patient/guardian denies using tobacco. - Ebola Screening: : No symptoms or risks identified at this time. Screenin:35 Abuse screen: Denies threats or abuse. Denies injuries from another. Nutritional ca1 screening: No deficits noted. Tuberculosis screening: No symptoms or risk factors identified. Fall Risk None identified. Assessment: 14:35 General: Appears in no apparent distress. comfortable, Behavior is calm, cooperative, ca1 appropriate for age. Pain: Denies pain. Neuro: Level of Consciousness is awake, alert, obeys commands, Oriented to person, place, time, situation. Cardiovascular: Heart tones S1 S2 present Capillary refill < 3 seconds Patient's skin is warm and dry. Respiratory: Airway is patent Respiratory effort is even, unlabored, Respiratory pattern is regular, symmetrical, Breath sounds are clear bilaterally. GI: No deficits noted. No signs and/or symptoms were reported involving the gastrointestinal system. : No deficits noted. No signs and/or symptoms were reported regarding the genitourinary system. EENT: No deficits noted. No signs and/or symptoms were reported regarding the EENT system. Derm: Skin is healthy with good turgor, Skin is pink, warm \T\ dry. Wound noted palmar aspect of right forearm Wound is red, non tender with incrusted edges of a brownish green in color. Musculoskeletal: Circulation, motion, and sensation intact. Capillary refill < 3 seconds, Range of motion: limited in right wrist. 15:30 Reassessment: Patient appears in no apparent distress at this time. Patient and/or ca1 family updated on plan of care and expected duration. Pain level reassessed. Patient is alert, oriented x 3, equal unlabored respirations, skin warm/dry/pink. Vital Signs: 14:31 BP 131 / 82; Pulse 85; Resp 16; Temp 98.0; Pulse Ox 98% on R/A; Weight 68.04 kg; Height la1 5 ft. 7 in. (170.18 cm); Pain 0/10; 15:30 BP 127 / 75; Pulse 79; Resp 17 S; Pulse Ox 100% on R/A; ca1 14:31 Body Mass Index 23.49 (68.04 kg, 170.18 cm) la1 ED Course: 14:25 Patient arrived in ED. rg4 14:26 Reddy Francois is Private Physician. rg4 14:31 Triage completed. la1 14:31 Arm band placed on right wrist. la1 14:33 Venkat Mitchell MD is Attending Physician. ps1 14:45 Ida [place] RN is Primary Nurse. ca1 15:00 Placed in gown. Bed in low position. Call light in reach. Side rails up X 1. Noise jp3 minimized. 15:00 Pulse ox on. NIBP on. jp3 15:04 Initial lab(s) drawn, by me, sent to lab. jp3 15:09 Procalcitonin Sent. jp3 15:09 CRP Sent. jp3 15:09 ESR Sent. jp3 15:09 CMP Sent. jp3 15:10 CBC with Diff Sent. jp3 15:33 Forearm Right XRAY In Process Unspecified. EDMS 15:44 Reddy Francois is Referral Physician. ps1 15:50 No provider procedures requiring assistance completed. Patient did not have IV access ca1 during this emergency room visit. Administered Medications: No medications were administered Outcome: 15:45 Discharge ordered by . ps1 15:50 Discharged to home ambulatory. ca1 15:50 Condition: stable 15:50 Discharge instructions given to patient, Instructed on discharge instructions, follow up and referral plans. medication usage, Demonstrated understanding of instructions, follow-up care, medications, Prescriptions given X 1. 16:03 Patient left the ED. ca1 Signatures: Dispatcher [employer] EDMS Sameer Sorto, RN RN Cindi Fitzgerald4 Venkat Mitchell MD MD ps1 Shawn Bolivar jp3 Ida [place] RN RN ca1
--- NOTE | 2018-12-18 15:46 | EDPHYS ---
Physician Documentation [facility] Name: Ning Coffey Age: 73 yrs Sex: Female : 1945 Arrival Date: 12/18/2018 Time: 14:25 Bed 25 Private MD: Reddy Francois ED Physician Venkat Mitchell HPI: 12/18 15:47 This 73 yrs old Female presents to ER via Ambulatory with complaints of ps1 Redness/Swelling Of Arm. 15:47 patient presenting with erythematous changes of the right dorsal aspect of forearm. ps1 patient as fallen several times and on the last episode she came to the emergency department with a skin tear and sent home with skin care instructions to use Neosporin. Patient states that over the last couple of days the condition has worsened with swelling and redness. No fever. Patient has wrapped the site with Kerlix and large amount of salve. There is persistent skin tear. . Historical: - Allergies: 14:31 Sulfa (Sulfonamide Antibiotics); la1 - PMHx: 14:31 CVA; Parkinsons; la1 - Immunization history:: Adult Immunizations up to date. - Social history:: Smoking status: Patient/guardian denies using tobacco. - Ebola Screening: : No symptoms or risks identified at this time. ROS: 15:47 Constitutional: Negative for fever, chills, and weight loss, Eyes: Negative for injury, ps1 pain, redness, and discharge, Cardiovascular: Negative for chest pain, palpitations, and edema, Respiratory: Negative for shortness of breath, cough, wheezing, and pleuritic chest pain, Abdomen/GI: Negative for abdominal pain, nausea, vomiting, diarrhea, and constipation, MS/Extremity: Negative for injury and deformity, Neuro: Negative for headache, weakness, numbness, tingling, and seizure, Psych: Negative for depression, anxiety, suicide ideation, homicidal ideation, and hallucinations. 15:47 Skin: Positive for erythema, swelling. Exam: 15:47 Constitutional: This is a well developed, well nourished patient who is awake, alert, ps1 and in no acute distress. Head/Face: Normocephalic, atraumatic. Eyes: Pupils equal round and reactive to light, extra-ocular motions intact. Lids and lashes normal. Conjunctiva and sclera are non-icteric and not injected. ENT: Nares patent. No nasal discharge, no septal abnormalities noted. Tympanic membranes are normal and external auditory canals are clear. Oropharynx with no redness, swelling, or masses, exudates, or evidence of obstruction, uvula midline. Mucous membranes moist. Chest/axilla: Normal chest wall appearance and motion. Nontender with no deformity. No lesions are appreciated. Cardiovascular: Regular rate and rhythm. No gallops, murmurs, or rubs. Normal PMI, no JVD. No pulse deficits. Respiratory: Lungs have equal breath sounds bilaterally, clear to auscultation and percussion. No rales, rhonchi or wheezes noted. No increased work of breathing, no retractions or nasal flaring. Abdomen/GI: Soft, non-tender, with normal bowel sounds. No distension or tympany. No guarding or rebound. No evidence of tenderness throughout. MS/ Extremity: Pulses equal, no cyanosis. Neurovascular intact. Full, normal range of motion. Neuro: Awake and alert, GCS 15, oriented to person, place, time, and situation. Cranial nerves II-XII grossly intact. Sensory grossly intact. 15:47 Skin: circumfrential redness extending distally from the elbow down the forearm. Persistent skin tear with open margins. Erythematous changes which appear more contact dermatitis than cellulitis. . Vital Signs: 14:31 BP 131 / 82; Pulse 85; Resp 16; Temp 98.0; Pulse Ox 98% on R/A; Weight 68.04 kg; Height la1 5 ft. 7 in. (170.18 cm); Pain 0/10; 15:30 BP 127 / 75; Pulse 79; Resp 17 S; Pulse Ox 100% on R/A; ca1 14:31 Body Mass Index 23.49 (68.04 kg, 170.18 cm) la1 MDM: 14:45 Patient medically screened. ps1 15:47 Data reviewed: vital signs, nurses notes, lab test result(s), radiologic studies, and ps1 as a result, I will discharge patient, administer antibiotics. Counseling: I had a detailed discussion with the patient and/or guardian regarding: the historical points, exam findings, and any diagnostic results supporting the discharge/admit diagnosis, lab results, radiology results, the need for outpatient follow up, to return to the emergency department if symptoms worsen or persist or if there are any questions or concerns that arise at home. ED course: labs reviewed and consistent with elevated WBC and CRP with eosinophilia. I believe that this is hypersensitivity reaction as patient does not have a fever and low procalcitonin. May be early cellulitis. No changes of osteo on xray. Will have patient air dry wound with small amount of neosporin applied. Will treat with a week of levaquin. 12/18 14:45 Order name: CBC with Diff; Complete Time: 15:43 ps1 12/18 14:45 Order name: CMP; Complete Time: 15:35 ps1 12/18 14:45 Order name: ESR; Complete Time: 15:43 ps1 12/18 14:45 Order name: CRP; Complete Time: 15:35 ps1 12/18 14:45 Order name: Procalcitonin; Complete Time: 15:43 ps1 12/18 14:45 Order name: Forearm Right XRAY; Complete Time: 15:55 ps1 Administered Medications: No medications were administered Disposition: 12/18/18 15:45 Discharged to Home. Impression: Hypersensitivity reaction. - Condition is Stable. - Discharge Instructions: Contact Dermatitis, [id number]. - Prescriptions for Levaquin 500 mg Oral Tablet - take 1 tablet by ORAL route once daily for 7 days; 7 tablet. - Medication Reconciliation Form, Thank You Letter, Antibiotic Education, Prescription Opioid Use form. - Follow up: Reddy Francois; When: 48 Hours; Reason: Recheck today's complaints. Follow up: Emergency Department; When: As needed; Reason: Fever > 102 F, Worsening of condition. - Problem is an ongoing problem. - Symptoms are unchanged. Signatures: Dispatcher [employer] EDMS Sameer Sorto RN RN la1 Venkat Mitchell MD MD ps1 Ida Hills RN RN ca1 Corrections: (The following items were deleted from the chart) 16:03 15:45 12/18/2018 15:45 Discharged to Home. Impression: Hypersensitivity reaction. ca1 Condition is Stable. Forms are Medication Reconciliation Form, Thank You Letter, Antibiotic Education, Prescription Opioid Use. Follow up: Reddy Francois; When: 48 Hours; Reason: Recheck today's complaints. Follow up: Emergency Department; When: As needed; Reason: Fever > 102 F, Worsening of condition. Problem is an ongoing problem. Symptoms are unchanged. ps1
--- NOTE | 2018-12-18 15:54 | RAD REPORT ---
EXAM DESCRIPTION: RAD - Forearm Right - 12/18/2018 3:36 pm CLINICAL HISTORY: Right arm pain status post injury FINDINGS: No acute fracture seen. Subacute distal right radial fracture noted.
[2018-12-18 16:58] VITALS: TEMP 98
[2018-12-18 17:01] VITALS: BP 127/75; O2SAT 100
== END 2018-12-18 16:03 | disposition home or self-care (01) ==
LOC: ER 14:23
DX: T78.40XA Allergy, unspecified, initial encounter (principal)
CPT/HCPCS: 36415; 80053; 84145; 85025; 85652; 86140; 99284

== ENCOUNTER 2018-12-19 23:48 | Emergency (ER) | payer OTHER, MEDICARE ==
--- OUTSIDE RECORDS SUMMARY | 2018-12-19 23:54 | XMS REPORT | Continuity of Care Document ---
:1945 Author Organization Interface Problems Problem Status Onset Classification Date Comments Source Date Reported ACUTE STROKE Active [address] ACUTE STROKE Active [address] SARAH Active [facility] BILLING [address] [place] [address] CVA Active [address] DVT (<span Resolved Problem 07/10/2014 [facility] ID="[id number] Medical 97">Confirmed Center </span>) CVA Active [facility] Medications Medication Details Route Status Patient [...] atorvastatin 20 20 mg=1 tab, PO, Active 07/07[facility] mg oral tablet Bedtime, # 30 2014 Medical tab, 3 Refill(s) Center aspirin 325 mg 325 mg=1 tab, PO, Active 07/07[facility] tablet Daily, # 100 tab, 2014 Medical 3 Refill(s) Center warfarin 7.5 mg 7.5 mg, PO, Q5PM, Active 07/07[facility] oral tablet # 5 tab, 0 2013 Medical Refill(s) Center OLANZapine 2.5 2.5 mg=1 tab, PO, Active 07/07[facility] mg oral tablet Q6H, Agitation, 0 2013 Medical Refill(s) Center 0.4 mg=1 tab, PO, Active 07/07[facility] Multivitamins Daily, 0 2013 Medical with Folic Acid Refill(s) Center 0.4 mg oral tablet Folic Acid 1 MG 1 mg=1 tab, PO, Active 07/07[facility] Oral Tablet Daily, 0 2013 Medical Refill(s) [place] Docusate Sodium 100 mg=1 cap, PO, Active [place] 100 MG Oral Q12H, 0 Refill(s) 2013 Medical Capsule Center benzonatate 100 100 mg=1 cap, PO, Active [facility] mg oral capsule TID, Cough, 0 2013 Medical Refill(s) [place] Acetaminophen 650 mg=2 tab, PO, Active [place] 325 MG Oral Q4H, Pain 2013 Medical Tablet 1-3/Temp > 99.5 Center F, 0 Refill(s) Warfarin 5 mg, 1 tab, Inactive [place] Route: PO, Drug 2013 Medical form: TAB, Q5PM, Center Dosing Weight 83, kg, Start date: 07/06/14 17:00:00, Duration: 1 doses or times, Stop date: 07/06/14 17:00:00Notes: Nurse to ensure documentation of patient education per anticoagulation policy. Avoid large intake of vitamin-K containing foods diet. (Same As: Coumadin) cefpodoxime 100 mg, Route: Inactive [place] PO, Drug form: 2013 Medical TAB, [id number], Center Dosing Weight 83, kg, Priority: NOW, Start date: 07/06/14 11:17:00, Duration: 7 day, Stop date: 07/12/14 23:17:00 benzonatate 100 mg, 1 cap, No Longer [place] Route: PO, Drug Active 2013 Medical form: CAP, TID, Center Dosing Weight 83, kg, PRN Cough, Start date: 07/06/14 2:28:00, Duration: 30 day, Stop date: 08/05/14 2:27:00Notes: (Same As: Simran Red) "Do Not Crush" Mag-Ox 400 800 mg, 2 tab, Inactive [place] Route: PO, Drug 2013 Medical form: TAB, ONCE, Center Dosing Weight 83, kg, Start date: 07/05/14 15:55:00, Stop date: 07/05/14 15:55:00Notes: (Same as: Mag-Ox 400) Magnesium oxide [id number] elemental magnesium Dose=____mg magnesium oxide (___mg elemental [...] IVPB, Drug form: Active 2013 Medical PDR/INJ, [id number], Center Dosing Weight 83, kg, Start date: [...] Benadryl) Ativan 1 mg, 0.5 mL, Inactive [place] Route: IV, Drug 2013 Medical form: INJ, [...] date: 08/01/14 21:00:00Notes: (Same As: Lipitor) sennosides, PENITENTIARY 8.6 mg, 1 tab, No Longer [facility] Route: PO, Drug Active 2013 Medical Form: TAB, Dosing Center Weight 83, kg, BID, Start date: 07/03/14 17:00:00, Duration: 30 day, Stop date: 08/02/14 9:00:00Notes: (Same as: Senokot) pantoprazole 40 mg, Route: Inactive [place] IVP, Drug form: 2013 Medical INJ, Before Center Dinner, Dosing Weight 79.545, kg, Start date: 07/03/14 16:30:00, Duration: 30 day, Stop date: 08/01/14 16:30:00Notes: For IV push reconstitute with 10 ml 0.9% sodium chloride and push over 2 minutes. (Same as: Protonix) Sodium Chloride 1,000 mL, Rate: No Longer [place] 0.154 MEQ/ML 75 ml/hr, Infuse Active 2013 Medical Injectable over: 13.3 hr, [place] Solution Route: IV, Dosing Weight 83 kg, [...] B1) 1 tab, Route: PO, No Longer [place] Multivitamins Drug Form: TAB, Active 2013 Medical with Folic Acid Dosing Weight 83, Center 0.8 mg oral kg, Daily, Start tablet date: 07/03/14 12:00:00, Duration: 30 day, Stop date: 08/02/14 9:00:00 Saline Flush 10 ml, Route: No Longer [place] 0.9% IVP, Drug Form: Active 2013 Medical [...] Drug Form: 2013 Medical Inactivated SUSP, Daily, [place] [id number] Start date: 07 (H3N2)-like 07/03/14 9:00:00, virus Duration: 1 doses ([id number] or times, Stop 007 [facility] [id number]) date: 07/03/14 strain / 9:00:00Notes: Influenza Virus (Same as: Fluzone Vaccine, Quadrivalent) Inactivated [id number] 07, IVR-148 (H1N1) strain / Influenza Virus Vaccine, Inactivated, D-Jpvcoaa-2 -lik Docusate 100 mg, 1 cap, No [...] ONCE, 2013 Medical Sodium Chloride Start date: [place] 0.9% IV 100 mL 07/03/14 6:00:00, Stop date: 07/03/14 6:00:00 Sodium Chloride 500 mL, 500 Inactive [facility] 0.154 MEQ/ML ml/hr, Infuse 2013 Medical Injectable Over: 1 hr, [place] Solution Route: IV, 500, Drug form: INJ, ONCE, Priority: STAT, Dosing Weight 83 kg, Start date: 07/03/14 3:50:00, Duration: 1 doses or times, Stop date: 07/03/14 3:50:00 Omnipaque 300 50 ml, Route: Inactive [facility] Joycelyn INTRAARTERIAL, 2013 Medical Dosing Weight [...] Acetaminophen 650 mg, 2 tab, No Longer [place] Route: PO, Drug Active 2013 Medical form: TAB, Q4H, Center Dosing Weight 79.545, kg, PRN Pain 1-3/Temp > 99.5 F, Start date: 07/02/14 22:10:00, Duration: 30 day, Stop date: 08/01/14 22:09:00Notes: Do not exceed 4 gm/day. (Same as: Tylenol) Bisacodyl 10 mg, 1 supp, No Longer [place] Route: MT, Drug Active 2013 Medical form: SUPP, Center Daily, Dosing Weight 79.545, kg, PRN Constipation, Start date: 07/02/14 22:10:00, Duration: 30 day, Stop date: 08/01/14 22:09:00Notes: (Same As: Dulcolax, Bisco-Lax) Nicardipine 40 mg, 200 mL, No Longer [place] Rate: Start at 5 Active 2013 Medical mg/hr., Dosing Center Weight 79.545, kg, Route: IV, Total Volume: 200, Titrate to maintain SBP 140-180mmHg., Start Date: 07/02/14 22:10:00, Duration: 30 day, Stop date: 08/01/14 22:09:00, Replace Every: 24 hrNotes: Same as: Cardene Concentration: (0.2 mg /1 ml ) Enalapril 0.625 mg, 0.5 mL, No Longer [place] Route: IVP, Drug Active 2013 Medical form: [...] Duration: 1 doses or times, Dose=2.2ml/kg, Max auat=275gy -- "To be infused by Radiology Staff ONLY"Special Instructions: Dose=2.2ml/kg, Max mfnr=389cy -- "To be infused by Radiology Staff ONLY" aspirin 0 Refill(s) No Longer [facility] Active 2013 [facility] Saline Flush 10 mL, Route: No Longer [facility] 0.9% IVP, Drug Form: Active 2013 [facility] INJ, kg, PRN, PRN [place] Flush, Start date: 07/02/14 21:34:00, Duration: 30 day, Stop date: 08/01/14 20:33:00Notes: (Same as: BD Posiflush) Allergies, Adverse Reactions, Alerts Substance Category Reaction Severity Reaction Status Date Comments Source type Reported sulfa drugs Assertion Drug Active [facility] Immunizations Immunization Date Given Site Status Last Comments Source Updated pneumococcal 07/04/2014 Left completed [facility] 23-valent vaccine [facility] influenza virus 07/04/2014 Right completed [facility] vaccine, [facility] Results Order Name Results Value Reference Date Interpretation Comments Source Range URINE AND Occult Bld Negative Negative 07/07 [facility] STOOL [facility] (07/07/14 3:42 PM) Center ELECTROLYTE AGAP 14.5 meq/L 10.0 - 07/07 [facility] S 20.0 [facility] ELECTROLYTE Potassium Lvl 4.5 meq/L 3.5 - 5.1 07/07 [facility] S [facility] ELECTROLYTE Sodium Lvl 142 meq/L 135 - 145 07/07 [facility] S [facility] ELECTROLYTE Calcium Lvl 8.6 mg/dL 8.5 - 10.5 07/07 [facility] S [facility] ELECTROLYTE CO2 22 meq/L 24 - 32 07/07 [facility] S [facility] ELECTROLYTE Chloride Lvl 110 meq/L 95 - 109 07/07 [facility] S [facility] ELECTROLYTE eGFR 58 07/07 1Result Comment: The eGFR is calculated using the CKD-EPI formula. In most young, healthy individuals the eGFR will be > 90 mL/min/1.73m2. The eGFR declines with age. An eGFR of 60-89 may be normal in [facility] mL/min/1. some populations, particularly the elderly, for whom the CKD-EPI formula has not been extensively validated. Use of the eGFR is not recommended in the following populations: [address] Individuals with unstable creatinine concentrations, including [...] Creatinine 1.0 mg/dL 0.5 - 1.4 07/[address] [facility] Lvl [facility] ELECTROLYTE BUN 23 mg/dL 7 - 07/07 [facility] S [facility] ELECTROLYTE Glucose Lvl 97 mg/dL 70 - 99 07/07 4Interpretive Data: Adult reference range values reflect the clinical guidelines [facility] of the [place] [employer]. [facility] HEMATOLOGY PT 12.7 s 12.0 - 07/07 [facility] . [facility] HEMATOLOGY INR 0.95 0.85 - 07/07 10Interpretive Data: RECOMMENDED RANGES FOR PROTIME INR: [facility] 1.17 2.0-3.0 for most medical and surgical thromboembolic states. Medical 2.5-3.5 for artificial heart valves and recurrent embolism. Center INR SHOULD BE USED ONLY FOR PATIENTS ON STABLE ANTICOAGULANT THERAPY. HEMATOLOGY RDW 13.8 % 11.5 - 07/07 [place] 14.5 [facility] HEMATOLOGY RBC 3.59 M/CMM 4.20 - 07/07 [place] 5.40 [facility] HEMATOLOGY WBC 12.1 K/CMM 3.7 - 10.4 07/07 [facility] HEMATOLOGY Hgb 11.5 g/dL 12.0 - 07/07 [place] 16.0 [facility] HEMATOLOGY Hct 36.0 % 36.0 - 07/07 [place] 48.0 [facility] HEMATOLOGY MCV 100.3 fL 80.0 - 07/07 [place] 98.0 /2013 [facility] HEMATOLOGY MCH 32.0 pg 27.0 - 07/07 [place] 31.0 [facility] HEMATOLOGY MCHC 31.9 g/dL 32.0 - 07/07 36.0 [facility] HEMATOLOGY MPV 11.4 fL 7.4 - 10.4 07/07 [facility] HEMATOLOGY Platelet 175 K/CMM 133 - 450 07/07 [facility] HEMATOLOGY Monocytes 14.9 % 2.0 - 12.0 07/07 [facility] HEMATOLOGY Eosinophils 3.5 % 0.0 - 4.0 07/07 [facility] HEMATOLOGY Basophils 0.4 % 0.0 - 1.0 07/07 [facility] HEMATOLOGY Lymphocytes # 3.9 K/CMM 1.0 - 5.5 07/07 [facility] HEMATOLOGY Monocytes # 1.8 K/CMM 0.0 - 0.8 07/07 [facility] HEMATOLOGY Segs-Bands # 5.9 K/CMM 1.5 - 8.1 07/07 [facility] HEMATOLOGY Eosinophils # 0.4 K/CMM 0.0 - 0.5 07/07 [facility] HEMATOLOGY Macrocyte 1+ None Seen 07/07 Medical *ABN* Center (07/07/14 1:00 AM) HEMATOLOGY Lymphocytes 32.6 % 20.0 - 07/07 [facility] 40.0 /2013 [facility] HEMATOLOGY Segs 48.6 % 45.0 - 07/07 [facility] 75.0 /2013 [facility] HEMATOLOGY PT 13.9 s 12.0 - 07/07 [facility] 14.7 [facility] HEMATOLOGY INR 1.07 0.85 - 07/07 11Interpretive Data: RECOMMENDED RANGES FOR PROTIME INR: [facility] 1. 2.0-3.0 for most medical and surgical thromboembolic states. Medical 2.5-3.5 for artificial heart valves and recurrent embolism. Center INR SHOULD BE USED ONLY FOR PATIENTS ON STABLE ANTICOAGULANT THERAPY. HEMATOLOGY PTT 35.0 s 22.9 - 07/07 13Interpretiv [facility] 35.8 e Data: [facility] Center Therapeutic Range: 57 - 92 Seconds ANEMIA Folate Lvl 14.3 ng/mL >=3.0 07/06 [facility] STUDY ng/mL [facility] ANEMIA Vitamin B12 908 pg/mL 254 - 1320 07/06 [facility] STUDY Lvl [facility] ANEMIA UIBC 245 ug/dl 110 - 370 07/06 [facility] ANEMIA % [place] Fe 18 % 12 - 57 07/06 [facility] ANEMIA Iron 52 ug/dl 30 - 160 07/06 [facility] ANEMIA TIBC 297 ug/dl 228 - 428 07/06 [facility] ANEMIA Transferrin 227 mg/dL 212 - 360 07/06 [facility] HEMATOLOGY Monocytes 15.2 % 2.0 - 12.0 07/06 [facility] HEMATOLOGY Eosinophils # 0.3 K/CMM 0.0 - 0.5 07/06 [facility] HEMATOLOGY Monocytes # 1.6 K/CMM 0.0 - 0.8 07/06 [facility] HEMATOLOGY Basophils 0.4 % 0.0 - 1.0 07/06 [facility] HEMATOLOGY Eosinophils 3.2 % 0.0 - 4.0 07/06 [facility] HEMATOLOGY Lymphocytes # 3.4 K/CMM 1.0 - 5.5 07/06 [facility] HEMATOLOGY Segs-Bands # 5.3 K/CMM 1.5 - 8.1 07/06 [facility] HEMATOLOGY Segs 49.6 % 45.0 - 07/06 75.0 [facility] HEMATOLOGY Plt Morph Normal 07/06 [facility] (07/06/14 2:30 AM) [place] HEMATOLOGY Lymphocytes 31.6 % 20.0 - 07/06 40. [facility] HEMATOLOGY RBC Morph Normal 07/06 [facility] (07/06/14 2:30 AM) Center HEMATOLOGY WBC 10.6 K/CMM 3.7 - 10.4 07/06 [facility] HEMATOLOGY MCV 97.8 fL 80.0 - 07/06 98.0 [facility] HEMATOLOGY Hct 37.0 % 36.0 - 07/06 48. [facility] HEMATOLOGY Hgb 12.1 g/dL 12.0 - 07/06 16. [facility] HEMATOLOGY RBC 3.78 M/CMM 4.20 - 07/06 [place] 5. [facility] HEMATOLOGY MCHC 32.8 g/dL 32.0 - 07/06 [place] 36.0 [facility] HEMATOLOGY MCH 32.1 pg 27.0 - 07/06 [place] 31.0 [facility] HEMATOLOGY RDW 13.9 % 11.5 - 07/06 14. [facility] HEMATOLOGY MPV 12.2 fL 7.4 - 10.4 07/06 [facility] HEMATOLOGY Platelet 167 K/CMM 133 - 450 07/06 [facility] CARDIAC Troponin-T null 0.000 - 07/05 [place] ENZYMES 0.100 [facility] CARDIAC Total CK 123 unit/L 12 - 191 07/05 ENZYMES [facility] CARDIAC Troponin-I 0.02 ng/mL 0.00 - 07/05 [facility] ENZYMES 0.40 [facility] CARDIAC CK MB Index 1.0 0.0 - 2.5 07/05 ENZYMES [facility] CARDIAC CK MB 1.2 ng/mL 0.5 - 3.6 07/05 [facility] HEMATOLOGY Basophils 0.7 % 0.0 - 1.0 07/05 [facility] HEMATOLOGY Eosinophils 2.4 % 0.0 - 4.0 07/05 [facility] HEMATOLOGY Segs-Bands # 5.3 K/CMM 1.5 - 8.1 07/05 [facility] HEMATOLOGY Lymphocytes # 2.1 K/CMM 1.0 - 5.5 07/05 [facility] HEMATOLOGY Monocytes # 1.4 K/CMM 0.0 - 0.8 07/05 [facility] HEMATOLOGY Eosinophils # 0.2 K/CMM 0.0 - 0.5 07/05 [facility] HEMATOLOGY Basophils # 0.1 K/CMM 0.0 - 0.2 07/05 [facility] HEMATOLOGY Segs 58.2 % 45.0 - 07/05 [place] 75.0 [facility] HEMATOLOGY Monocytes 15.5 % 2.0 - 12.0 07/05 [facility] HEMATOLOGY Lymphocytes 23.2 % 20.0 - 07/05 [place] 40.0 [facility] HEMATOLOGY MCHC 33.0 g/dL 32.0 - 07/05 36.0 [facility] HEMATOLOGY RDW 14.0 % 11.5 - 07/05 [facility] [place] 14. [facility] HEMATOLOGY WBC 9.1 K/CMM 3.7 - 10.4 07/05 [facility] HEMATOLOGY RBC 3.13 M/CMM 4.20 - 07/05 5.40 [facility] HEMATOLOGY Hgb 10.1 g/dL 12.0 - 07/05 16.0 [facility] HEMATOLOGY Platelet 142 K/CMM 133 - 450 07/05 [facility] HEMATOLOGY MPV 12.1 fL 7.4 - 10.4 07/05 [facility] HEMATOLOGY Hct 30.7 % 36.0 - 07/05 48.0 [facility] HEMATOLOGY MCH 32.3 pg 27.0 - 07/05 31.0 [facility] HEMATOLOGY MCV 98.0 fL 80.0 - 07/05 [facility] 98.0 [facility] HEMATOLOGY Basophils # 0.1 K/CMM 0.0 - 0.2 07/05 [facility] CHEM PANEL Magnesium Lvl 1.6 mg/dL 1.8 - 2.4 07/05 [facility] CHEM PANEL Phosphorus 3.7 mg/dL 2.5 - 4.5 07/05 [facility] CHEM PANEL eGFR 76 07/05 2Result [...] is not recommended in the following populations: [address] Individuals with unstable creatinine concentrations, including [...] CO2 25 meq/L 24 - 32 07/05 [facility] CHEM PANEL Calcium Lvl 8.3 mg/dL 8.5 - 10.5 07/05 [facility] Center CHEM PANEL Sodium Lvl 145 meq/L 135 - 145 07/05 [facility] CHEM PANEL BUN 15 mg/dL 7 - 22 07/05 [facility] CHEM PANEL Creatinine 0.8 mg/dL 0.5 - 1.4 07/05 [facility] CHEM PANEL Chloride Lvl 112 meq/L 95 - 109 07/05 [facility] CHEM PANEL Potassium Lvl 4.5 meq/L 3.5 - 5.1 07/05 [facility] CHEM PANEL Glucose Lvl 89 mg/dL 70 - 99 07/05 5Interpretive Data: Adult reference range values reflect the clinical guidelines of the [place] [employer]. [facility] Center CHEM PANEL AGAP 12.5 meq/L 10.0 - 07/05 . [facility] DRUG SCREEN U Phencyc Scr Negative Negative 07/05 Medical *NA* [place] (07/04/14 7:50 PM) DRUG SCREEN UDS Note [...] SCREEN U Cocaine Scr Negative Negative 07/05 [facility] *NA* Center (07/04/14 7:50 PM) DRUG SCREEN U Opiate Scr Negative Negative 07/05 [facility] *NA* Center (07/04/14 7:50 PM) DRUG SCREEN U Amph Scr Negative Negative 07/05 [facility] *NA* Center (07/04/14 7:50 PM) URINE AND UA <=1.0 0.1 - 1.0 07/05 [facility] Urobilinogen mg/dL [facility] URINE AND UA RBC 1 /HPF 0 - 2 07/05 [facility] URINE AND UA Mucus Few /LPF None Seen 07/05 [place] STOOL /LPF [facility] URINE AND UA Hyal Cast 1 /LPF 0 - 2 07/05 [facility] URINE AND UA WBC 9 /HPF 0 - 5 07/05 [facility] URINE AND UA Glucose Negative Negative 07/05 [facility] mg/dL mg/dL [facility] URINE AND UA Ketones Negative Negative 07/05 [facility] mg/dL mg/dL [facility] URINE AND UA pH 5.0 5.0 - 8.0 07/05 [facility] URINE AND UA Protein Negative Negative 07/05 [facility] mg/dL mg/dL [facility] URINE AND UA Spec Grav 1.010 <=1.030 07/05 [facility] URINE AND UA Leuk Est Moderate Negative 07/05 [facility] *ABN* Center (07/04/14 7:50 PM) URINE AND UA Sq Epi Few /LPF Few /LPF 07/05 [facility] URINE AND UA Bili Negative Negative 07/05 [facility] Medical *NA* [place] (07/04/14 7:50 PM) URINE AND UA Blood Negative Negative 07/05 [facility] (07/04/14 7:50 PM) Center URINE AND UA Nitrite Negative Negative 07/05 [facility] (07/04/14 7:50 PM) Center URINE AND UA Color Yellow Yellow 07/05 [facility] Medical *NA* Center (07/04/14 7:50 PM) URINE AND UA Turbidity Clear Clear 07/05 [facility] (07/04/14 7:50 PM) [place] CHEM PANEL Lactic Acid 1.0 mMol/L 0.5 - 2.2 07/04 [facility] CHEM PANEL Globulin 2.5 g/dL 2.0 - 4.0 07/04 [facility] CHEM PANEL A/G Ratio 1.3 0.7 - 1.6 07/04 [facility] CHEM PANEL Bili Indirect 0.3 mg/dL 0.0 - 1.0 07/04 [facility] CHEM PANEL Total Protein 5.7 g/dL 6.4 - 8.4 07/04 [facility] CHEM PANEL Alk Phos 61 unit/L 39 - 136 07/04 [facility] CHEM PANEL Albumin Lvl 3.2 g/dL 3.5 - 5.0 07/04 [facility] CHEM PANEL ALT 21 unit/L 0 - 65 07/04 [facility] CHEM PANEL AST 16 unit/L 0 - 37 07/04 [facility] CHEM PANEL Bili Direct 0.1 mg/dL 0.0 - 0.3 07/04 [facility] CHEM PANEL Bili Total 0.4 mg/dL 0.2 - 1.3 07/04 [facility] CHEM PANEL Phosphorus 3.3 mg/dL 2.5 - 4.5 07/04 [facility] CHEM PANEL Magnesium Lvl 1.8 mg/dL 1.8 - 2.4 07/04 [facility] CHEM PANEL eGFR 66 07/04 3Result [...] is not recommended in the following populations: [place] [address] Center Individuals with unstable creatinine concentrations, including [...] AGAP 11.5 meq/L 10.0 - 07/04 20.0 [facility] CHEM PANEL Calcium Lvl 8.3 mg/dL 8.5 - 10.5 07/04 [facility] CHEM PANEL Sodium Lvl 144 meq/L 135 - 145 07/04 [facility] CHEM PANEL Potassium Lvl 4.5 meq/L 3.5 - 5.1 07/04 [facility] CHEM PANEL Chloride Lvl 113 meq/L 95 - 109 07/04 [facility] CHEM PANEL CO2 24 meq/L 24 - 32 07/04 [facility] CHEM PANEL Glucose Lvl 107 mg/dL 70 - 99 07/04 6Interpretive Data: Adult reference range values reflect the clinical guidelines of the [place] [employer]. [facility] CHEM PANEL BUN 12 mg/dL 7 - 22 07/04 [facility] CHEM PANEL Creatinine 0.9 mg/dL 0.5 - 1.4 07/04 [facility] HEMATOLOGY INR 1.14 0.85 - 07/04 12Interpretive Data: RECOMMENDED RANGES FOR PROTIME INR: [facility] . 2.0-3.0 for most medical and surgical thromboembolic states. Medical 2.5-3.5 for artificial heart valves and recurrent embolism. Center INR SHOULD BE USED ONLY FOR PATIENTS ON STABLE ANTICOAGULANT THERAPY. HEMATOLOGY PTT 26.0 s 22.9 - 07/04 14Interpretiv [facility] 35.8 2014 e Data: [facility] Therapeutic Range: 57 - 92 Seconds HEMATOLOGY PT 14.7 s 12.0 - 07/04 [facility] 14.7 [facility] PARATHYROID Ca Norm WB 1.06 1.05 - 07/04 [facility] PROFILE mMol/L . [facility] PARATHYROID Ca Ion WB 1.06 1.05 - 07/04 [facility] PROFILE mMol/L . [facility] DRUG SCREEN UDS Note See Note 9 07/03 9Interpretive Data: Drugs reported as positive have not been confirmed by a second method and should be used for medical purposes only. To order Medical *NA* confirmation, contact laboratory. [place] (07/03/14 10:50 AM) note: Below are cut-off [...] SCREEN U Opiate Scr Negative Negative 07/03 [facility] [place] (07/03/14 10:50 AM) DRUG SCREEN U Phencyc Scr Negative Negative 07/03 [facility] *NA* [place] (07/03/14 10:50 AM) DRUG SCREEN U Cocaine Scr Negative Negative 07/03 [facility] [place] (07/03/14 10:50 AM) DRUG SCREEN U Benzodia Negative Negative 07/03 [facility] *NA* [place] (07/03/14 10:50 AM) DRUG SCREEN U Cannab Scr Negative Negative 07/03 [facility] [place] (07/03/14 10:50 AM) DRUG SCREEN U Amph Scr Negative Negative 07/03 [facility] *NA* [place] (07/03/14 10:50 AM) DRUG SCREEN U Shauna Scr Negative Negative 07/03 [facility] *NA* [place] (07/03/14 10:50 AM) LIPIDS CHD Risk 1.95 3.90 - 07/03 [place] 5.80 /2013 [facility] LIPIDS VLDL 8 07/03 [facility] LIPIDS LDL 72 mg/dL <=99 mg/dL 07/03 [place] (Calculated) [facility] LIPIDS Trig 42 mg/dL <=149 07/03 [place] mg/dL [facility] LIPIDS Chol 164 mg/dL <=199 07/03 [place] mg/dL [facility] LIPIDS HDL 84 mg/dL >=61 mg/dL 07/03 7Result Comment: Medical Specimen Center Slightly Hemolyzed. SPECIAL Hgb A1C 4.9 % <=5.6 % 07/03 [facility] CHEMISTRY [facility] URINE AND UA <=1.0 0.1 - 1.0 07/03 [facility] Urobilinogen mg/dL [facility] URINE AND UA Bacteria Occasional None Seen 07/03 [facility] STOOL /HPF /HPF /2013 [facility] URINE AND UA Mucus Few /LPF None Seen 07/03 [facility] STOOL /LPF [facility] URINE AND UA Amorph Occasional None Seen 07/03 [facility] STOOL Christin /HPF /HPF [facility] URINE AND UA Sq Epi Occasional Few /LPF 07/03 [facility] /LPF [facility] URINE AND UA WBC 4 /HPF 0 - 5 07/03 [facility] URINE AND UA Nitrite Negative Negative 07/03 [facility] (07/03/14 10:50 AM) [place] URINE AND UA Blood Negative Negative 07/03 [facility] (07/03/14 10:50 AM) [place] URINE AND UA Ketones Negative Negative 07/03 [facility] mg/dL mg/dL [facility] URINE AND UA RBC 2 /HPF 0 - 2 07/03 [facility] URINE AND UA Leuk Est Negative Negative 07/03 [facility] (07/03/14 10:50 AM) [place] URINE AND UA Color Light Yellow Yellow 07/03 [facility] *NA* [place] (07/03/14 10:50 AM) URINE AND UA pH 5.0 5.0 - 8.0 07/03 [facility] URINE AND UA Bili Negative Negative 07/03 [facility] *NA* [place] (07/03/14 10:50 AM) URINE AND UA Glucose Negative Negative 07/03 [facility] mg/dL mg/dL [facility] URINE AND UA Turbidity Slight Clear 07/03 [facility] *ABN* [place] (07/03/14 10:50 AM) URINE AND UA Spec Grav 1.007 <=1.030 07/03 [facility] URINE AND UA Protein Negative Negative 07/03 [facility] mg/dL mg/dL [facility] BACTERIAL - MRSA by PCR Negative [...] result does not exclude colonization or infection. [facility] (07/03/14 3:11 AM) Center The polymerase chain reaction (PCR) assay detects a proprietary sequence indicative of the integration of the SCCmec cassette into the Staphylococcus aureus chromosome, indicating the presence of MRSA D NA. The assay utilizes FDA cleared IVD reagents. Performance characteristics have been verified by the Molecular Diagnostic Laboratory within the [facility]. The Molecular Diagnostic Labor atory is authorized under the Clinical Laboratory Improvement Amendment of 1988 (CLIA-88) to perform high complexity testing. CARDIAC Troponin-I null 0.00 - 07/03 [facility] ENZYMES 0.40 [facility] CARDIAC Total CK 51 unit/L 12 - 191 07/03 [facility] CHEM PANEL Phosphorus 2.8 mg/dL 2.5 - 4.5 07/03 [facility] CHEM PANEL Magnesium Lvl 1.7 mg/dL 1.8 - 2.4 07/03 [facility] CHEM PANEL Total Protein 5.6 g/dL 6.4 - 8.4 07/03 [facility] CHEM PANEL Albumin Lvl 3.0 g/dL 3.5 - 5.0 07/03 [facility] CHEM PANEL Globulin 2.6 g/dL 2.0 - 4.0 07/03 [facility] CHEM PANEL A/G Ratio 1.2 0.7 - 1.6 07/03 [facility] CHEM PANEL ALT 26 unit/L 0 - 65 07/03 [facility] CHEM PANEL Alk Phos 66 unit/L 39 - 136 07/03 [facility] CHEM PANEL AST 18 unit/L 0 - 37 07/03 [facility] CHEM PANEL Bili Indirect 0.1 mg/dL 0.0 - 1.0 07/03 [facility] CHEM PANEL Bili Total 0.2 mg/dL 0.2 - 1.3 07/03 [facility] CHEM PANEL Bili Direct 0.1 mg/dL 0.0 - 0.3 07/03 [facility] HEMATOLOGY PTT 28.0 s 22.9 - 07/03 15[employer] [place] 35.8 e Data: [facility] Therapeutic Range: 57 - 92 Seconds PARATHYROID Ca Norm WB 1.01 1.05 - 07/03 [facility] PROFILE mMol/L 1. [facility] PARATHYROID Ca Ion WB 1.04 1.05 - 07/03 [facility] PROFILE mMol/L 1.25 [facility] CARDIAC Troponin-T 0.031 0.000 - 07/03 [facility] ENZYMES ng/mL 0.100 [facility] BLOOD BANK Antibody Scrn Negative 07/03 [facility] RESULTS [facility] (07/02/14 11:20 PM) [place] BLOOD BANK ABO/Rh O POS 07/03 [facility] RESULTS [facility] CARDIAC Troponin-I null 0.00 - 07/03 [facility] ENZYMES 0.40 [facility] CARDIAC Total CK 59 unit/L 12 - 191 07/03 [facility] ENZYMES [facility] CARDIAC CK MB 0.7 ng/mL 0.5 - 3.6 07/03 [facility] ENZYMES [facility] CARDIAC CK MB Index 1.2 0.0 - 2.5 07/03 [facility] ENZYMES [facility] HEMATOLOGY Basophils # 0.0 K/CMM 0.0 - 0.2 07/03 [facility] HEMATOLOGY RBC Morph Normal 07/03 [facility] (07/02/14 10:15 PM) [place] HEMATOLOGY Plt Morph Normal 07/03 [facility] (07/02/14 10:15 PM) [place] CHEM PANEL POC 1.2 mg/dL 0.5 - 1.4 07/03 [facility] Creatinine [facility] Vital Signs Vital Sign Value Date Comments Source Systolic (mm Hg) 147 07/08/[address] [facility] Respitory Rate 35 07/08/[address] [facility] Diastolic (mm Hg) 74 07/08/[address] [facility] Respitory Rate 22 07/07/[address] [facility] Diastolic (mm Hg) 68 07/07/[address] [facility] Respitory Rate 20 07/07/[address] [facility] Systolic (mm Hg) 126 07/07/[address] [facility] Diastolic (mm Hg) 75 07/07/[address] [facility] Systolic (mm Hg) 118 07/07/[address] [facility] Heart Rate 69 07/04/[address] [facility] Heart Rate 72 07/04/[address] [facility] Heart Rate 67 07/04/[address] [facility] Height 162.56 cm 07/03/[address] [facility] Weight 83 07/03/[address] [facility] BMI Calculated 31.41 07/03/[address] [facility] Height 162.56 cm 07/03/[address] [facility] Weight 83 07/03/[address] [facility] BMI Calculated 31.41 07/03/[address] [facility] Temperature Oral (F) 97.0 F 07/03/[address] [facility] Temperature Oral (F) 97.9 F 07/03/[address] [facility] BMI Calculated 30.1 07/03/[address] [facility] Weight 79.545 07/03/[address] [facility] Height 162.56 cm 07/03/[address] [facility] Encounters Location Location Encounter Encounter Reason Attending ADM DC Status Source Details Type Number For Provider Date Date Visit [facility] [id number] [facility] 07/03 07/08 [facility] [place] [facility] [id number] SONIA 12/15 Active [facility] [place] Outpatient [id number] SONIA 03/16 [facility] [place] [facility] [id number] SONIA 07/20 Active [facility] [place] Outpatient [id number] SONIA 11/09 [facility] [place] Outpatient [id number] SONIA 03/08 [facility] [place] Procedures Procedure Code Date Perfomer Comments Source Splenectomy [id number] [facility]
--- OUTSIDE RECORDS SUMMARY | 2018-12-19 23:55 | XMS REPORT ---
[...] Start End Date Status Dosage Date Omeprazole [facility] 60973-10 Active not defined 81-02 Tylenol # 3 NDC 0 Active not defined Xarelto [facility] 96383-08 Active not defined 77-10 Carbidopa-Levod [facility] 34513-78 Active not defined opa 12-07 Tylenol # 3 NDC 0 300/30mg PO Q Nov 03, Active one tab 4-6 HRS PRN PAIN 2019 Results No Known Results Summary Purpose eClinicalWorks Submission
--- OUTSIDE RECORDS SUMMARY | 2018-12-19 23:55 | XMS REPORT ---
[...] End Status Dosage System Date Date Carbidopa-Levo [facility] [address]-03 Active not dopa defined Tylenol # 3 NDC 0 Active not defined Omeprazole [facility] [id number] Active not defined Xarelto [facility] [address]-38 Active not defined Tylenol # 3 NDC 0 300/30mg PO Q Nov 03, Active one tab 4-6 HRS PRN 2019 PAIN Results No Known Results Summary Purpose eClinicalWorks Submission
--- OUTSIDE RECORDS SUMMARY | 2018-12-19 23:55 | XMS REPORT ---
[...] End Status Dosage System Date Date Carbidopa-Levo [facility] [address]-51 Active not dopa defined Xarelto [facility] [address]-14 Active not defined Tylenol # 3 NDC 0 Active not defined Omeprazole [facility] [id number] Active not defined Tylenol # 3 NDC 0 300/30mg PO Q Nov 03, Active one tab 4-6 HRS PRN 2019 PAIN Results No Known Results Summary Purpose eClinicalWorks Submission
--- OUTSIDE RECORDS SUMMARY | 2018-12-19 23:55 | XMS REPORT ---
[...] Start End Date Status Dosage Date Carbidopa-Levod [facility] 65443-46 Active not defined opa 12-07 Xarelto [facility] 21691-21 Active not defined 77-10 [place] [address]-24 Active not defined 81-02 Tylenol # 3 NDC 0 300/30mg PO Q Nov 03, Active one tab 4-6 HRS PRN PAIN 2018 Tylenol # 3 NDC 0 Active not defined Results No Known Results Summary Purpose eClinicalWorks Submission
[2018-12-20] MEDS ORDERED: METHYLPREDNISOLONE 125 MG INJ ONE (00:41)
--- NOTE | 2018-12-20 01:10 | ER ---
Nurse's Notes [facility] Name: Ning Coffey Age: 73 yrs Sex: Female : 1945 Arrival Date: 12/19/2018 Time: 23:50 Bed 4 Private MD: Reddy Francois Diagnosis: Urticaria, unspecified Presentation: 12/20 00:05 Presenting complaint: Patient states: Took second dose of Levaquin 500 mg Daily lp1 prescription and rash to general body, itching; Denies any shortness of breath, throat swelling; Took Benadryl at 2100. Transition of care: patient was not received from another setting of care. Onset: The symptoms/episode began/occurred gradually. Anaphylaxis evaluation, no signs or symptoms of anaphylaxis were noted. Onset of symptoms was December 20, 2018. Risk Assessment: Do you want to hurt yourself or someone else? Patient reports no desire to harm self or others. Initial Sepsis Screen: Does the patient meet any 2 criteria? No. Patient's initial sepsis screen is negative. Does the patient have a suspected source of infection? No. Patient's initial sepsis screen is negative. Care prior to arrival: None. 00:05 Method Of Arrival: Ambulatory lp1 00:05 Acuity: DANIELLE 4 lp1 Historical: - Allergies: 00:09 Sulfa (Sulfonamide Antibiotics); lp1 - Home Meds: 00:09 Carbidopa-Levodopa Oral [Active]; Carbidopa-Levodopa Oral [Active]; lp1 hydrocodone-acetaminophen 10-325 mg Oral tab 1 tab every 4 hours for Pain [Active]; Xarelto 15 mg Oral tab daily [Active]; Omeprazole Oral [Active]; - PMHx: 00:09 CVA; Parkinsons; lp1 - PSHx: 00:09 Hysterectomy; spleenectomy; Tonsillectomy; lp1 - Immunization history:: Adult Immunizations up to date. - Social history:: Smoking status: Patient/guardian denies using tobacco. - Ebola Screening: : No symptoms or risks identified at this time. - Family history:: not pertinent. - Hospitalizations: : No recent hospitalization is reported. Screenin:10 Abuse screen: Denies threats or abuse. Denies injuries from another. Nutritional lp1 screening: No deficits noted. Tuberculosis screening: No symptoms or risk factors identified. Fall Risk None identified. Assessment: 00:09 General: Appears in no apparent distress. uncomfortable, Behavior is calm, cooperative, lp1 appropriate for age. Pain: Denies pain. Neuro: Level of Consciousness is awake, alert, obeys commands, Oriented to person, place, time, situation. Cardiovascular: Patient's skin is warm and dry. Respiratory: Airway is patent Respiratory effort is even, unlabored, Respiratory pattern is regular, Breath sounds are clear bilaterally. Denies shortness of breath. GI: No deficits noted. : No deficits noted. EENT: No deficits noted. Derm: Rash noted that is urticaria. Musculoskeletal: No deficits noted. 01:19 Reassessment: Patient appears in no apparent distress at this time. Patient and/or tl2 family updated on plan of care and expected duration. Pain level reassessed. Patient is alert, oriented x 3, equal unlabored respirations, skin warm/dry/pink. pt verbalized understanding of discharge instructions, need for follow up and prescription usage. Vital Signs: 00:07 BP 123 / 78; Pulse 60; Resp 18; Temp 97.6(O); Pulse Ox 100% on R/A; Weight 68.04 kg; lp1 Height 5 ft. 4 in. (162.56 cm); Pain 0/10; 01:00 BP 117 / 73; Pulse 90; Resp 18; Pulse Ox 100% on R/A; lp1 00:07 Body Mass Index 25.75 (68.04 kg, 162.56 cm) lp1 ED Course: 12/19 23:50 Patient arrived in ED. do 23:50 Reddy Francois is Private Physician. do 23:55 Shlomo Harvey MD is Attending Physician. rn 12/20 00:05 Laura Dorado RN is Primary Nurse. lp1 00:07 Triage completed. lp1 00:07 Arm band placed on left wrist. lp1 00:10 No provider procedures requiring assistance completed. lp1 00:11 Patient has correct armband on for positive identification. lp1 00:35 Patient did not have IV access during this emergency room visit. lp1 Administered Medications: 00:35 Drug: SOLU-Medrol 125 mg Route: IM; Site: right gluteus; lp1 01:20 Follow up: Response: No adverse reaction tl2 Outcome: 01:09 Discharge ordered by . rn 01:19 Discharged to home ambulatory, with family. tl2 01:19 Condition: stable 01:19 Discharge instructions given to patient, Instructed on discharge instructions, follow up and referral plans. medication usage, Demonstrated understanding of instructions, follow-up care, medications, Prescriptions given X 2. 01:20 Patient left the ED. tl2 Signatures: Shlomo Harvey MD MD rn Pena, Laura RN RN lp1 Marlene Fontanez Taylor RN RN tl2
--- NOTE | 2018-12-20 01:10 | EDPHYS ---
Physician Documentation [facility] Name: Ning Coffey Age: 73 yrs Sex: Female : 1945 Arrival Date: 12/19/2018 Time: 23:50 Bed 4 Private MD: Reddy Francois ED Physician Shlomo Harvey HPI: 12/20 00:31 This 73 yrs old Female presents to ER via Ambulatory with complaints of rn Allergic Reaction. 00:31 The patient presents with rash. Onset: The symptoms/episode began/occurred today. rn Associated signs and symptoms: Pertinent positives: hives, rash, Pertinent negatives: abdominal pain, chest pain, dysphagia, fever, shortness of breath, swelling, Syncope vomiting. Possible causes: antibiotics, Levaquin. At home the patient or guardian has treated the symptoms with Benadryl. Severity of symptoms: At their worst the symptoms were mild in the emergency department the symptoms are unchanged. The patient has not experienced similar symptoms in the past. The patient has not recently seen a physician. Historical: - Allergies: 00:09 Sulfa (Sulfonamide Antibiotics); lp1 - Home Meds: 00:09 Carbidopa-Levodopa Oral [Active]; Carbidopa-Levodopa Oral [Active]; lp1 hydrocodone-acetaminophen 10-325 mg Oral tab 1 tab every 4 hours for Pain [Active]; Xarelto 15 mg Oral tab daily [Active]; Omeprazole Oral [Active]; - PMHx: 00:09 CVA; Parkinsons; lp1 - PSHx: 00:09 Hysterectomy; spleenectomy; Tonsillectomy; lp1 - Immunization history:: Adult Immunizations up to date. - Social history:: Smoking status: Patient/guardian denies using tobacco. - Ebola Screening: : No symptoms or risks identified at this time. - Family history:: not pertinent. - Hospitalizations: : No recent hospitalization is reported. ROS: 00:31 Constitutional: Negative for fever, chills, and weight loss, Eyes: Negative for injury, rn pain, redness, and discharge, Neck: Negative for injury, pain, and swelling, Cardiovascular: Negative for chest pain, palpitations, and edema, Respiratory: Negative for shortness of breath, cough, wheezing, and pleuritic chest pain, Abdomen/GI: Negative for abdominal pain, nausea, vomiting, diarrhea, and constipation, MS/Extremity: Negative for injury and deformity, Skin: +rash and itching Neuro: Negative for headache, weakness, numbness, tingling, and seizure. Exam: 00:31 Constitutional: This is a well developed, well nourished patient who is awake, alert, rn and in no acute distress. Head/Face: Normocephalic, atraumatic. Eyes: Pupils equal round and reactive to light, extra-ocular motions intact. Lids and lashes normal. Conjunctiva and sclera are non-icteric and not injected. Cornea within normal limits. Periorbital areas with no swelling, redness, or edema. ENT: no oral swelling or stridor Respiratory: No increased work of breathing, no retractions or nasal flaring. Abdomen/GI: soft, non-tender Skin: War,. + diffuse urticaria, no skin sloughing, no bullae MS/ Extremity: Pulses equal, no cyanosis. Neurovascular intact. Full, normal range of motion. Equal circumference. Neuro: Awake and alert, GCS 15, oriented to person, place, time, and situation. Cranial nerves II-XII grossly intact. Motor strength 5/5 in all extremities. Sensory grossly intact. Cerebellar exam normal. Normal gait. Vital Signs: 00:07 BP 123 / 78; Pulse 60; Resp 18; Temp 97.6(O); Pulse Ox 100% on R/A; Weight 68.04 kg; lp1 Height 5 ft. 4 in. (162.56 cm); Pain 0/10; 01:00 BP 117 / 73; Pulse 90; Resp 18; Pulse Ox 100% on R/A; lp1 00:07 Body Mass Index 25.75 (68.04 kg, 162.56 cm) lp1 MDM: 12/19 23:55 Patient medically screened. rn 12/20 01:09 Differential diagnosis: urticaria. Data reviewed: vital signs, nurses notes, and as a rn result, I will discharge patient. Counseling: I had a detailed discussion with the patient and/or guardian regarding: the historical points, exam findings, and any diagnostic results supporting the discharge/admit diagnosis, the need for outpatient follow up, to return to the emergency department if symptoms worsen or persist or if there are any questions or concerns that arise at home. Response to treatment: the patient's symptoms have mildly improved after treatment, and as a result, I will discharge patient. Special discussion: I discussed with the patient/guardian in detail that at this point there is no indication for admission to the hospital. It is understood, however, that if the symptoms persist or worsen the patient needs to return immediately for re-evaluation. ED course: Will dc levaquin and prescribe doxycycline due to simpler dosing than clindamycin and allergy to bactrim.. Administered Medications: 00:35 Drug: SOLU-Medrol 125 mg Route: IM; Site: right gluteus; lp1 01:20 Follow up: Response: No adverse reaction tl2 Disposition: 12/20/18 01:09 Discharged to Home. Impression: Urticaria, unspecified. - Condition is Stable. - Discharge Instructions: Hives. - Prescriptions for Prednisone 20 mg Oral Tablet - take 3 tablet by ORAL route once daily for 5 days; 15 tablet. Doxycycline Monohydrate 100 mg Oral Tablet - take 1 tablet by ORAL route every 12 hours for 10 days; 20 tablet. - Medication Reconciliation Form, Thank You Letter, Antibiotic Education, Prescription Opioid Use form. - Follow up: Private Physician; When: As needed; Reason: Recheck today's complaints, Re-evaluation by your physician. - Problem is new. - Symptoms have improved. Signatures: Shlomo Harvey MD MD rn Pena, Laura RN RN lp1 Berenice Fonseca RN RN tl2 Corrections: (The following items were deleted from the chart) 01:20 01:09 12/20/2018 01:09 Discharged to Home. Impression: Urticaria, unspecified. tl2 Condition is Stable. Forms are Medication Reconciliation Form, Thank You Letter, Antibiotic Education, Prescription Opioid Use. Follow up: Private Physician; When: As needed; Reason: Recheck today's complaints, Re-evaluation by your physician. Problem is new. Symptoms have improved. rn
[2018-12-20 03:07] VITALS: BP 123/78; TEMP 97.6; O2SAT 100
== END 2018-12-20 01:20 | disposition home or self-care (01) ==
LOC: ER 23:48
DX: L50.9 Urticaria, unspecified (principal); G20 Parkinson's disease; Z88.2 Allergy status to sulfonamides; Z79.01 Long term (current) use of anticoagulants; Z86.73 Personal history of transient ischemic attack (TIA), and cerebral infarction without residual deficits
CPT/HCPCS: 96372; 99283; J2930

== ENCOUNTER 2019-03-10 11:33 | Emergency (ER) | payer OTHER, MEDICARE ==
--- OUTSIDE RECORDS SUMMARY | 2019-03-10 11:39 | XMS REPORT | Summary of Care ---
:1945 Author Organization [facility] Neu[facility] [place] Address [address] [place] [address]- Encounter HQ Manda(FIN) [id number] Date(s): 07/20/18 - 07/20/18 [facility] [address] [place] [address]- [phone] Discharge Disposition: Home or Self Care Attending Physician: Tad Velasquez MD Referring Physician: Tad Velasquez MD Vital Signs Most recent to oldest [Reference Range]: 1 Height 162.56 cm (07/20/18 2:29 PM) Blood Pressure [90-140/60-90 mmHg] 124/82 mmHg (07/20/18 2:29 PM) Respiratory Rate [14-20 BRMIN] 16 BRMIN (07/20/18 2:29 PM) Peripheral Pulse Rate [60-100 bpm] 71 bpm (07/20/18 2:29 PM) Weight 68.182 kg (07/20/18 2:29 PM) Body Mass Index 25.8 m2 (07/20/18 2:29 PM) Problem List Condition Effective Dates Status Health Status Informant Atrial fibrillation(Confirmed) Active DVT (deep venous Resolved thrombosis)(Confirmed) Parkinson disease(Confirmed) Active Allergies, Adverse Reactions, Alerts Substance Reaction Severity Status sulfa drugs Active Medications carbidopa-levodopa 25 mg-100 mg oral tablet 1 tab, PO, TID, # 90 tab, 4 Refill(s), Pharmacy: [id number] Start Date: 07/20/18 Stop Date: 12/17/18 Status: Orderedesomeprazole 40 mg oral delayed release capsule 40 mg=1 cap, PO, Daily, 0 Refill(s) Start Date: 07/20/18 Status: Ordered Results No data available for this section Immunizations Given and Recorded Vaccine Date Status Refusal Reason pneumococcal 23-valent vaccine 07/04/14 Given influenza virus vaccine, inactivated 07/04/14 Given Procedures Procedure Date Related Diagnosis Body Site Status Splenectomy Completed Social History Social History Type Response Substance Abuse Use: None. Alcohol Current, Type Wine. Frequency: Daily. Smoking Status Former smoker; Type: Cigarettes; Exposure to Tobacco Smoke None ; Cigarette Smoking Last 365 Days No; Reg Smoking Cessation Counseling No entered on: 11/09/18 Assessment and Plan No data available for this section
--- OUTSIDE RECORDS SUMMARY | 2019-03-10 11:39 | XMS REPORT | Continuity of Care Document ---
:1945 Author Organization [employer] Care Team Providers Name Role Phone [employer] Information [employer] Unavailable Unavailable Problems Problem Status Onset Classification Date Comments Source Date Reported CVA Active 07/02/[address] SARAH Active 07/02/20 [facility] BILLING [address] [place] [address] ACUTE STROKE Active 07/02/[address] Atrial Active Problem 02/07/[place] [facility] [place] DVT (Confirmed) Resolved Problem 02/07/[place] [facility] Parkinson Active Problem 02/07/2019 [facility] [place] Neuro CVA Active [facility] Medications Medication Details Route Status Patient Ordering Order Source Instructions Provider Date Esomeprazole 40 40 mg=1 cap, PO, [facility], 0 2017 Neuro Coated Capsule Refill(s) Carbidopa 25 MG 1 tab, PO, TID, # Active [facility] Levod[facility] 100 90 tab, 4 2017 Neuro MG Oral Tablet Refill(s), Pharmacy: [id number] Warfarin 7.5 mg, 1 tab, Inactive [facility] Route: PO, Drug 2013 Medical form: TAB, Q5PM, Center Dosing Weight 83, kg, Start date: 07/07/14 17:00:00, Duration: 1 doses or times, Stop date: 07/07/14 17:00:00Notes: Nurse to ensure documentation of patient education per anticoagulation policy. Avoid large intake of vitamin-K containing foods diet. (Same As: Coumadin) atorvastatin 20 20 mg=1 tab, PO, Active 07/07[facility] mg oral tablet Bedtime, # 30 2013 Medical tab, 3 Refill(s) Center aspirin 325 mg 325 mg=1 tab, PO, Active 07/07[facility] tablet Daily, # 100 tab, 2014 Medical 3 Refill(s) Center warfarin 7.5 mg 7.5 mg, PO, Q5PM, Active 07/07[facility] oral tablet # 5 tab, 0 2013 Medical Refill(s) Center OLANZapine 2.5 2.5 mg=1 tab, PO, Active [facility] mg oral tablet Q6H, Agitation, 0 2013 Medical Refill(s) Center 0.4 mg=1 tab, PO, Active [facility] Multivitamins Daily, 0 2013 Medical with Folic Acid Refill(s) Center 0.4 mg oral tablet Folic Acid 1 MG 1 mg=1 tab, PO, Active [facility] Oral Tablet Daily, 0 2013 Medical Refill(s) Center Docusate Sodium 100 mg=1 cap, PO, Active [place] 100 MG Oral Q12H, 0 Refill(s) 2013 Medical Capsule Center benzonatate 100 100 mg=1 cap, PO, Active [facility] mg oral capsule TID, Cough, 0 2013 Medical Refill(s) Center Acetaminophen 650 mg=2 tab, PO, Active [facility] 325 MG Oral Q4H, Pain 2013 Medical Tablet 1-3/Temp > 99.5 Center F, 0 Refill(s) Warfarin 5 mg, 1 tab, Inactive [facility] Route: PO, Drug 2013 Medical form: TAB, Q5PM, Center Dosing Weight 83, kg, Start date: 07/06/14 17:00:00, Duration: 1 doses or times, Stop date: 07/06/14 17:00:00Notes: Nurse to ensure documentation of patient education per anticoagulation policy. Avoid large intake of vitamin-K containing foods diet. (Same As: Coumadin) cefpodoxime 100 mg, Route: Inactive [facility] PO, Drug form: 2013 Medical TAB, [id number], Center Dosing Weight 83, kg, Priority: NOW, Start date: 07/06/14 11:17:00, Duration: 7 day, Stop date: 07/12/14 23:17:00 benzonatate 100 mg, 1 cap, No Longer [facility] Route: PO, Drug Active 2013 Medical form: CAP, TID, Center Dosing Weight 83, kg, PRN Cough, Start date: 07/06/14 2:28:00, Duration: 30 day, Stop date: 08/05/14 2:27:00Notes: (Same As: Simran Red) "Do Not Crush" Mag-Ox 400 800 mg, 2 tab, Inactive [facility] Route: PO, Drug 2013 Medical form: TAB, ONCE, Center Dosing Weight 83, kg, Start date: 07/05/14 15:55:00, Stop date: 07/05/14 15:55:00Notes: (Same as: Mag-Ox 400) Magnesium oxide [id number] elemental magnesium Dose=____mg magnesium oxide (___mg elemental magnesium) Lactated Ringers 1,000 mL, Rate: Inactive [facility] IV 1000 mL 100 ml/hr, Infuse 2013 Medical over: 10 hr, Center Route: IV, Dosing Weight 83 kg, Total Volume: 1,000, Start date: 07/05/14 11:26:00, Duration: 30 day, Stop date: 08/04/14 11:25:00 Lactated Ringers 1,000 mL, Rate: No Longer [facility] IV 1,000 mL 100 ml/hr, Infuse Active 2013 Medical over: 10 hr, Center Route: IV, Dosing Weight 83 kg, Total Volume: 1,000, Priority: STAT, Start date: 07/05/14 10:06:00, Duration: 30 day, Stop date: 08/04/14 10:05:00 Magnesium 2 gm, 50 mL, Inactive [facility] Sulfate Route: IVPB, Drug 2013 Medical form: INJ, ONCE, Center Dosing Weight 83, kg, Total dose=2 gm, Start date: 07/05/14 10:05:00, Duration: 1 doses or times, Stop date: 07/05/14 10:05:00 normal saline 1,000 mL, Rate: Inactive [facility] 0.9% IV 1,000 mL 125 ml/hr, Infuse 2013 Medical over: 8 hr, Center Route: IV, Dosing Weight 83 kg, Total Volume: 1,000, Start date: 07/05/14 9:24:00, Duration: 1 day, Stop date: 07/06/14 9:23:00 Rocephin 1 gm, Route: No Longer [facility] IVPB, Drug form: Active 2013 Medical PDR/INJ, [id number], Center Dosing Weight 83, kg, Start date: 07/05/14 8:00:00, Duration: 30 day, Stop date: 08/03/14 8:00:00Notes: Use with 100ml NS mini-bag PLUS and infuse over 30 min ZyPREXA 2.5 mg, 1 tab, Inactive [facility] Route: PO, Drug 2013 Medical form: TAB, Center Bedtime, Start date: 07/04/14 21:00:00, Duration: 1 doses or times, Stop date: 07/04/14 21:00:00Notes: (Same as: ZyPREXA) Geodon 5 mg, Route: IM, Inactive [facility] Q4H, Dosing 2013 Medical Weight 83, kg, Center Start date: 07/04/14 21:00:00, Duration: 30 day, Stop date: 08/03/14 20:00:00 ZyPREXA 2.5 mg, 1 tab, No Longer [facility] Route: PO, Drug Active 2013 Medical form: TAB, Q6H, Center PRN Agitation, Start date: 07/04/14 17:08:00, Duration: 30 day, Stop date: 08/03/14 17:07:00Notes: (Same as: ZyPREXA) folic acid 1 mg 1 mg, 1 tab, No Longer [facility] oral tablet Route: PO, Drug Active 2013 Medical form: TAB, Daily, Center Start date: 07/04/14 17:00:00, Duration: 30 day, Stop date: 08/03/14 9:00:00Notes: (Same as: Folvite) Sodium Chloride 250 mL, Rate: 999 Inactive [facility] 0.9% IV 250 mL ml/hr, Infuse 2013 Medical over: 0.3 hr, Center Route: IV, Dosing Weight 83 kg, Total Volume: 250, Start date: 07/04/14 14:45:00, Duration: 1 doses or times, Stop date: 07/04/14 15:02:00 Sodium Chloride 500 mL, Rate: 999 Inactive [facility] 0.9% IV 500 mL ml/hr, Infuse 2013 Medical over: 0.5 hr, Center Route: IV, Dosing Weight 83 kg, Total Volume: 500, Start date: 07/04/14 14:44:00, Duration: 1 doses or times, Stop date: 10/28/14 15:13:00 Benadryl 25 mg, 1 cap, Inactive [place] Route: PO, Drug 2013 Medical form: CAP, ONCE, Center Dosing Weight 83, kg, PRN Itching, Start date: 07/04/14 12:20:00, Stop date: 08/03/14 13:19:00Notes: (Same as: Benadryl) Ativan 1 mg, 0.5 mL, Inactive [place] Route: IV, Drug 2013 Medical form: INJ, Center ONCALL, Dosing Weight 83, kg, Start date: 07/04/14 4:00:00, Duration: 1 doses or times, Stop date: 07/05/14 0:00:00Notes: (Same as: Ativan) heparin, porcine 5,000 unit, 1 mL, No Longer [place] Route: SUB-Q, Active 2013 Medical Drug form: INJ, Center Q8H, Dosing Weight 83, kg, Start date: 07/04/14 0:00:00, Duration: 30 day, Stop date: 08/02/14 16:00:00Notes: porcine heparin aspirin 325 mg 325 mg, 1 tab, No Longer [place] tablet Route: PO, Drug Active 2013 Medical form: ECTAB, Center Daily, Dosing Weight 83, kg, Start date: 07/03/14 22:00:00, Duration: 30 day, Stop date: 08/01/14 22:00:00Notes: (Do Not Crush) Do not crush or chew. atorvastatin 20 mg, 1 tab, No Longer [place] Route: PO, Drug Active 2013 Medical form: TAB, Center Bedtime, Dosing Weight 83, kg, Start date: 07/03/14 21:00:00, Stop date: 08/01/14 21:00:00Notes: (Same As: Lipitor) sennosides, CORRECTION 8.6 mg, 1 tab, No Longer [place] Route: PO, Drug Active 2013 Medical Form: TAB, Dosing Center Weight 83, kg, BID, Start date: 07/03/14 17:00:00, Duration: 30 day, Stop date: 08/02/14 9:00:00Notes: (Same as: Senokot) pantoprazole 40 mg, Route: Inactive [facility] IVP, Drug form: 2013 Medical INJ, Before [...] hr, Center Solution Route: IV, Dosing Weight 83 kg, Total Volume: 1,000, Start date: 07/03/14 16:25:00, Duration: 12 hr, Stop date: 07/04/14 4:24:00 Thiamine 100 mg, 1 tab, No Longer [facility] Route: PO, Drug Active 2013 Medical form: TAB, Daily, Center Dosing Weight 83, kg, Start date: 07/03/14 12:00:00, Duration: 30 day, Stop date: 08/02/14 9:00:00Notes: (Same As: Vitamin B1) 1 tab, Route: PO, No Longer [facility] Multivitamins Drug Form: TAB, Active 2013 Medical [...] BD Posiflush) pneumococcal 0.5 ml, Route: Inactive [facility] capsular IM, Drug Form: 2013 Medical polysaccharide INJ, Daily, Start Center type 1 vaccine / date: 07/03/14 pneumococcal 9:00:00, capsular Duration: 1 doses polysaccharide or times, Stop type 10A vaccine date: 07/03/14 / pneumococcal 9:00:00Notes: capsular (Same as: polysaccharide Pneumovax 23) type 11A vaccine Refrigerate / pneumococcal capsular polysaccharide type 12F vaccine / pneumococcal capsular polysacchar Influenza Virus 0.5 mL, Route: Inactive [facility] Vaccine, IM, Drug Form: 2013 Medical Inactivated SUSP, Daily, Center [id number]-60 Start date: 07 (H3N2)-like 07/03/14 9:00:00, virus Duration: 1 doses (H-[id number] or times, Stop 007 [facility] X-175C) date: 07/03/14 strain / 9:00:00Notes: Influenza Virus (Same as: Fluzone Vaccine, Quadrivalent) Inactivated F-Emtqzfmw-36- 07, IVR-148 (H1N1) strain / Influenza Virus Vaccine, Inactivated, L-Rteoytk-9 -lik Docusate 100 mg, 1 cap, No [...] Cardizem) magnesium 2 gm, 50 mL, Inactive [facility] sulfate Route: IVPB, Drug 2013 Medical form: INJ, Q2H, Center Start date: 07/03/14 6:00:00, Duration: 2 doses or times, Stop date: 07/03/14 8:00:00 calcium 3,000 mg, 30 mL, Inactive [facility] gluconate + Route: IV, ONCE, 2013 Medical Sodium Chloride Start date: [place] 0.9% IV 100 mL 07/03/14 6:00:00, Stop date: 07/03/14 6:00:00 Sodium Chloride 500 mL, 500 Inactive [facility] 0.154 MEQ/ML ml/hr, Infuse 2013 Medical Injectable Over: 1 hr, Center Solution Route: IV, 500, Drug form: INJ, ONCE, Priority: STAT, Dosing Weight 83 kg, Start date: 07/03/14 3:50:00, Duration: 1 doses or times, Stop date: 07/03/14 3:50:00 Omnipaque 300 50 ml, Route: Inactive [place] INTRAARTERIAL, 2013 Medical Dosing Weight Center 79.545, [...] Acetaminophen 650 mg, 2 tab, No Longer [place] Route: PO, Drug Active 2013 Medical form: TAB, Q4H, Center Dosing Weight 79.545, kg, PRN Pain 1-3/Temp > 99.5 F, Start date: 07/02/14 22:10:00, Duration: 30 day, Stop date: 08/01/14 22:09:00Notes: Do not exceed 4 gm/day. (Same as: Tylenol) Bisacodyl 10 mg, 1 supp, No Longer [place] Route: [place], Drug Active 2013 Medical form: SUPP, Center Daily, Dosing Weight 79.545, kg, PRN Constipation, Start date: 07/02/14 22:10:00, Duration: 30 day, Stop date: 08/01/14 22:09:00Notes: (Same As: Dulcolax, Bisco-Lax) Nicardipine 40 mg, 200 mL, No Longer [place] Rate: Start at 5 Active 2013 Medical mg/hr., Dosing Center Weight 79.545, kg, Route: IV, Total Volume: 200, Titrate to maintain SBP 140-180mmHg., Start Date: 07/02/14 22:10:00, Duration: 30 day, Stop date: 08/01/14 22:09:00, Replace Every: 24 hrNotes: Same as: Cardene Concentration: (0.2 mg /1 ml ) Enalapril 0.625 mg, 0.5 mL, No Longer [facility] Route: IVP, Drug [...] Zofran) Zofran 4 mg, Route: IVP, Inactive [facility] Drug form: INJ, 2013 Medical ONCE, Dosing Center Weight 79.545, kg, Priority: STAT, Start date: 07/02/14 21:54:00, Stop date: 07/02/14 21:54:00 iodixanol 125 mL, Route: Inactive [facility] IVP, Drug Form: 2013 Medical SOLN, Dosing Center Weight 79.545, kg, ONCALL, STAT, Start date: 07/02/14 21:53:00, Duration: 1 doses or times, Dose=2.2ml/kg, Max [id number]=[id number] -- "To be infused by Radiology Staff ONLY"Special Instructions: Dose=2.2ml/kg, Max [id number]=[id number] -- "To be infused by Radiology Staff ONLY" aspirin 0 Refill(s) No Longer [facility] Active 2013 [facility] Center Saline Flush 10 mL, Route: No Longer [facility] 0.9% IVP, Drug Form: Active 2013 Medical INJ, kg, PRN, PRN [place] Flush, Start date: 07/02/14 21:34:00, Duration: 30 day, Stop date: 08/01/14 20:33:00Notes: (Same as: BD Posiflush) Allergies, Adverse Reactions, Alerts Substance Category Reaction Severity Reaction Status Date Comments Source type Reported sulfa drugs Assertion Drug Active Mischer allergy Neuro Immunizations Immunization Date Given Site Status Last Comments Source Updated pneumococcal 07/04/2014 Left completed Carter Mischer 23-valent vaccine deltoid Neuro,[facility] influenza virus 07/04/2014 Right completed Carter Mischer vaccine, deltoid Neuro, inactivated [facility] Results Order Name Results Value Reference Date Interpretation Comments Source Range URINE AND Occult Bld Negative Negative 07/07 [facility] STOOL Stl (07/07/14 3:42 PM) [facility] ELECTROLYTE AGAP 14.5 10.0 - 07/07 [facility] S 20.0 [facility] ELECTROLYTE Potassium Lvl 4.5 3.5 - 5.1 07/07 [facility] S [facility] ELECTROLYTE Sodium Lvl 142 135 - 145 07/07 [facility] ELECTROLYTE Calcium Lvl 8.6 8.5 - 10.5 07/07 [facility] ELECTROLYTE CO2 22 24 - 32 07/07 [facility] ELECTROLYTE Chloride Lvl 110 95 - 109 07/07 [facility] ELECTROLYTE eGFR 58 07/07 <sup>1</sup>R esult Medical Comment: The Center eGFR is calculated using the CKD-EPI formula. In most young, healthy individuals the eGFR will be >90 mL/min/1.73m2 . The eGFR declines with age. An eGFR of 60-89 may be normal in some populations, particularly the elderly, for whom the CKD-EPI formula has not been extensively validated. Use of the eGFR is not recommended in the following populations:& lt;br/>
I ndividuals with unstable creatinine concentration s, including patients and those with serious co-morbid conditions.<b r/>
Patie nts with extremes in muscle mass or diet.

The data above are obtained from the National Kidney Disease Education Program (NKDEP) which additionally recommends that when the eGFR is used in patients with extremes of body mass index for purposes of drug dosing, the eGFR should be multiplied by the estimated BMI. ELECTROLYTE Creatinine 1.0 0.5 - 1.4 07/07 [facility] ELECTROLYTE BUN 23 7 - 22 07/07 [facility] ELECTROLYTE Glucose Lvl 97 70 - 99 07/07 <sup>4</sup>I [facility] nterpretive Medical Data: Adult Center reference range values reflect the clinical guidelines
of the [employer] [employer]. HEMATOLOGY PT 12.7 12.0 - 07/07 [facility] 14.7 [facility] HEMATOLOGY INR 0.95 0.85 - 07/07 <sup>10</sup> [facility] 1.17 Interpretive Medical Data: Center RECOMMENDED RANGES FOR PROTIME INR:
2.0-3.0 for most medical and surgical thromboemboli c states.
2.5-3.5 for artificial heart valves and recurrent embolism.<br/ >
INR SHOULD BE USED ONLY FOR PATIENTS ON STABLE ANTICOAGULANT THERAPY. HEMATOLOGY RDW 13.8 11.5 - 07/07 [facility] 14.5 [facility] HEMATOLOGY RBC 3.59 4.20 - 07/07 [place] 5.40 /2013 [facility] HEMATOLOGY WBC 12.1 3.7 - 10.4 07/07 [facility] HEMATOLOGY Hgb 11.5 12.0 - 07/07 [place] 16.0 /2013 [facility] HEMATOLOGY Hct 36.0 36.0 - 07/07 [place] 48.0 /2013 [facility] HEMATOLOGY MCV 100.3 80.0 - 07/07 [place] 98.0 /2013 [facility] HEMATOLOGY MCH 32.0 27.0 - 07/07 [place] 31.0 [facility] HEMATOLOGY MCHC 31.9 32.0 - 07/07 [place] 36.0 [facility] HEMATOLOGY MPV 11.4 7.4 - 10.4 07/07 [facility] HEMATOLOGY Platelet 175 133 - 450 07/07 [facility] HEMATOLOGY Monocytes 14.9 2.0 - 12.0 07/07 [facility] HEMATOLOGY Eosinophils 3.5 0.0 - 4.0 07/07 [facility] HEMATOLOGY Basophils 0.4 0.0 - 1.0 07/07 [facility] HEMATOLOGY Lymphocytes # 3.9 1.0 - 5.5 07/07 [facility] HEMATOLOGY Monocytes # 1.8 0.0 - 0.8 07/07 [facility] HEMATOLOGY Segs-Bands # 5.9 1.5 - 8.1 07/07 [facility] HEMATOLOGY Eosinophils # 0.4 0.0 - 0.5 07/07 [facility] HEMATOLOGY Macrocyte 1+ None Seen 07/07 [facility] *ABN* /2013 Medical (07/07/14 1:00 AM) Center HEMATOLOGY Lymphocytes 32.6 20.0 - 07/07 [place] 40.0 [facility] HEMATOLOGY Segs 48.6 45.0 - 07/07 [place] 75.0 [facility] HEMATOLOGY PT 13.9 12.0 - 07/07 [place] 14.7 [facility] HEMATOLOGY INR 1.07 0.85 - 07/07 <sup>11</sup> [facility] 1.17 Interpretive Medical Data: Center RECOMMENDED RANGES FOR PROTIME INR:
2.0-3.0 for most medical and surgical thromboemboli c states.
2.5-3.5 for artificial heart valves and recurrent embolism.<br/ >
INR SHOULD BE USED ONLY FOR PATIENTS ON STABLE ANTICOAGULANT THERAPY. HEMATOLOGY PTT 35.0 22.9 - 07/07 <sup>13</sup> [facility] 35.8 /2013 Interpretive Medical Data: Heparin Center Therapeutic Range: 57 - 92 Seconds ANEMIA Folate Lvl 14.3 >=3.0 07/06 [facility] ng/mL [facility] ANEMIA Vitamin B12 908 254 - 1320 07/06 [facility] STUDY Lvl [facility] ANEMIA UIBC 245 110 - 370 07/06 [facility] ANEMIA % Satur Fe 18 12 - 57 07/06 [facility] ANEMIA Iron 52 30 - 160 07/06 [facility] ANEMIA TIBC 297 228 - 428 07/06 [facility] ANEMIA Transferrin 227 212 - 360 07/06 [facility] HEMATOLOGY Monocytes 15.2 2.0 - 12.0 07/06 [facility] HEMATOLOGY Eosinophils # 0.3 0.0 - 0.5 07/06 [facility] HEMATOLOGY Monocytes # 1.6 0.0 - 0.8 07/06 [facility] HEMATOLOGY Basophils 0.4 0.0 - 1.0 07/06 [facility] HEMATOLOGY Eosinophils 3.2 0.0 - 4.0 07/06 [facility] HEMATOLOGY Lymphocytes # 3.4 1.0 - 5.5 07/06 [facility] HEMATOLOGY Segs-Bands # 5.3 1.5 - 8.1 07/06 [facility] HEMATOLOGY Segs 49.6 45.0 - 07/06 [facility] 75.0 [facility] HEMATOLOGY Plt Morph Normal 07/06 [facility] (07/06/14 2:30 AM) [facility] HEMATOLOGY Lymphocytes 31.6 20.0 - 07/06 [facility] 40.0 [facility] HEMATOLOGY RBC Morph Normal 07/06 [facility] (07/06/14 2:30 AM) [facility] HEMATOLOGY WBC 10.6 3.7 - 10.4 07/06 [facility] HEMATOLOGY MCV 97.8 80.0 - 07/06 [facility] 98.0 [facility] HEMATOLOGY Hct 37.0 36.0 - 07/06 [place] 48.0 /2013 [facility] HEMATOLOGY Hgb 12.1 12.0 - 07/06 [place] 16.0 /2013 [facility] HEMATOLOGY RBC 3.78 4.20 - 07/06 [place] 5.40 [facility] HEMATOLOGY MCHC 32.8 32.0 - 07/06 [place] 36.0 /2013 [facility] HEMATOLOGY MCH 32.1 27.0 - 07/06 [place] 31.0 [facility] HEMATOLOGY RDW 13.9 11.5 - 07/06 [place] 14.5 [facility] HEMATOLOGY MPV 12.2 7.4 - 10.4 07/06 [facility] HEMATOLOGY Platelet 167 133 - 450 07/06 [facility] CARDIAC Troponin-T <0.010 0.000 - 07/05 [facility] ENZYMES 0.100 [facility] CARDIAC Total CK 123 12 - 191 07/05 [facility] CARDIAC Troponin-I 0.02 0.00 - 07/05 [place] ENZYMES 0.40 [facility] CARDIAC CK MB Index 1.0 0.0 - 2.5 07/05 [facility] CARDIAC CK MB 1.2 0.5 - 3.6 07/05 [facility] HEMATOLOGY Basophils 0.7 0.0 - 1.0 07/05 [facility] HEMATOLOGY Eosinophils 2.4 0.0 - 4.0 07/05 [facility] HEMATOLOGY Segs-Bands # 5.3 1.5 - 8.1 07/05 [facility] HEMATOLOGY Lymphocytes # 2.1 1.0 - 5.5 07/05 [facility] HEMATOLOGY Monocytes # 1.4 0.0 - 0.8 07/05 [facility] HEMATOLOGY Eosinophils # 0.2 0.0 - 0.5 07/05 [facility] HEMATOLOGY Basophils # 0.1 0.0 - 0.2 07/05 [facility] HEMATOLOGY Segs 58.2 45.0 - 07/05 [place] 75.0 /2013 [facility] HEMATOLOGY Monocytes 15.5 2.0 - 12.0 07/05 [facility] HEMATOLOGY Lymphocytes 23.2 20.0 - 07/05 [place] 40.0 [facility] HEMATOLOGY MCHC 33.0 32.0 - 07/05 [place] 36.0 [facility] HEMATOLOGY RDW 14.0 11.5 - 07/05 14.5 [facility] HEMATOLOGY WBC 9.1 3.7 - 10.4 07/05 [facility] HEMATOLOGY RBC 3.13 4.20 - 07/05 [place] 5.40 /2013 [facility] HEMATOLOGY Hgb 10.1 12.0 - 07/05 [place] 16.0 [facility] HEMATOLOGY Platelet 142 133 - 450 07/05 [facility] HEMATOLOGY MPV 12.1 7.4 - 10.4 07/05 [facility] HEMATOLOGY Hct 30.7 36.0 - 07/05 [place] 48.0 [facility] HEMATOLOGY MCH 32.3 27.0 - 07/05 31.0 [facility] HEMATOLOGY MCV 98.0 80.0 - 07/05 98.0 [facility] HEMATOLOGY Basophils # 0.1 0.0 - 0.2 07/05 [facility] CHEM PANEL Magnesium Lvl 1.6 1.8 - 2.4 07/05 [facility] CHEM PANEL Phosphorus 3.7 2.5 - 4.5 07/05 [facility] CHEM PANEL eGFR 76 07/05 <sup>2</sup>R esult Medical Comment: The Center eGFR is calculated using the CKD-EPI formula. In most young, healthy individuals the eGFR will be >90 mL/min/1.73m2 . The eGFR declines with age. An eGFR of 60-89 may be normal in some populations, particularly the elderly, for whom the CKD-EPI formula has not been extensively validated. Use of the eGFR is not recommended in the following populations:& lt;br/>
I ndividuals with unstable creatinine concentration s, including patients and those with serious co-morbid conditions.<b r/>
Patie nts with extremes in muscle mass or diet.

The data above are obtained from the National Kidney Disease Education Program (NKDEP) which additionally recommends that when the eGFR is used in patients with extremes of body mass index for purposes of drug dosing, the eGFR should be multiplied by the estimated BMI. CHEM PANEL CO2 25 24 - 32 07/05 [facility] CHEM PANEL Calcium Lvl 8.3 8.5 - 10.5 07/05 [facility] Center CHEM PANEL Sodium Lvl 145 135 - 145 07/05 [facility] Center CHEM PANEL BUN 15 7 - 22 07/05 [facility] Center CHEM PANEL Creatinine 0.8 0.5 - 1.4 07/05 [facility] Center CHEM PANEL Chloride Lvl 112 95 - 109 07/05 [facility] Center CHEM PANEL Potassium Lvl 4.5 3.5 - 5.1 07/05 [facility] CHEM PANEL Glucose Lvl 89 70 - 99 07/05 <sup>5</sup>I nterpretive Medical Data: Adult Center reference range values reflect the clinical guidelines
of the [employer] [employer]. CHEM PANEL AGAP 12.5 10.0 - 07/05 [facility] 20. [facility] DRUG SCREEN U Phencyc Scr Negative Negative 07/05 [facility] *NA* [facility] (07/04/14 7:50 PM) Center DRUG SCREEN UDS Note See Note 8 07/05 <sup>8</sup>I [facility] (07/04/14 7:50 PM) nterpretive Medical Data: Drugs Center reported as positive have not been confirmed by a second
ut thod and should be used for medical purposes only. To order
con firmation, contact laboratory.<b r/>
not e: Below are cut-off concentration s for all urine drugs of
abuse performed in the laboratory. Some drugs listed in the table
may not be included in this panel.
<b r/>Descriptio n Cut-off concentration
----- ------
Am phetamine 1000 ng/mL
Bar biturates 200 ng/mL
Diogo zodiazepines 300 ng/mL
Alexis maria fernanda metabolites 300 ng/mL
Opi ates 300 ng/mL
Phencyclidine 25 ng/mL
Pro poxyphene 300 ng/mL
Marijuana metabolites 50 ng/mL
Met hadone 300 ng/mL
Urine alcohol 20 mg/dL DRUG SCREEN U Shauna Scr Negative Negative 07/05 [place] *NA* Medical (07/04/14 7:50 PM) Center DRUG SCREEN U Benzodia Positive Negative 07/05 [place] [facility] *ABN* Medical (07/04/14 7:50 PM) Center DRUG SCREEN U Cannab Scr Negative Negative 07/05 [place] *NA* Medical (07/04/14 7:50 PM) Center DRUG SCREEN U Cocaine Scr Negative Negative 07/05 [facility] *NA* Medical (07/04/14 7:50 PM) Center DRUG SCREEN U Opiate Scr Negative Negative 07/05 [place] *NA* Medical (07/04/14 7:50 PM) Center DRUG SCREEN U Amph Scr Negative Negative 07/05 [facility] *NA* Medical (07/04/14 7:50 PM) Center URINE AND UA <=1.0 0.1 - 1.0 07/05 [facility] Urobilinogen mg/dL [facility] URINE AND UA RBC 1 0 - 2 07/05 [facility] URINE AND UA Mucus Few /LPF None Seen 07/05 [facility] STOOL /LPF [facility] URINE AND UA Hyal Cast 1 0 - 2 07/05 [facility] URINE AND UA WBC 9 0 - 5 07/05 [facility] URINE AND UA Glucose Negative Negative 07/05 [facility] mg/dL mg/dL [facility] URINE AND UA Ketones Negative Negative 07/05 [facility] mg/dL mg/dL [facility] URINE AND UA pH 5.0 5.0 - 8.0 07/05 [facility] URINE AND UA Protein Negative Negative 07/05 [facility] mg/dL mg/dL [facility] URINE AND UA Spec Grav 1.010 <=1.030 07/05 [facility] URINE AND UA Leuk Est Moderate Negative 07/05 [facility] STOOL *ABN* Medical (07/04/14 7:50 PM) Center URINE AND UA Sq Epi Few /LPF Few /LPF 07/05 [facility] STOOL [facility] URINE AND UA Bili Negative Negative 07/05 [facility] STOOL *NA* [facility] (07/04/14 7:50 PM) [place] URINE AND UA Blood Negative Negative 07/05 [facility] STOOL (07/04/14 7:50 PM) [facility] URINE AND UA Nitrite Negative Negative 07/05 [facility] STOOL (07/04/14 7:50 PM) [facility] URINE AND UA Color Yellow Yellow 07/05 [facility] STOOL *NA* Medical (07/04/14 7:50 PM) [place] URINE AND UA Turbidity Clear Clear 07/05 [facility] STOOL (07/04/14 7:50 PM) [facility] CHEM PANEL Lactic Acid 1.0 0.5 - 2.2 07/04 [facility] CHEM PANEL Globulin 2.5 2.0 - 4.0 07/04 [facility] CHEM PANEL A/G Ratio 1.3 0.7 - 1.6 07/04 [facility] CHEM PANEL Bili Indirect 0.3 0.0 - 1.0 07/04 [facility] CHEM PANEL Total Protein 5.7 6.4 - 8.4 07/04 [facility] CHEM PANEL Alk Phos 61 39 - 136 07/04 [facility] CHEM PANEL Albumin Lvl 3.2 3.5 - 5.0 07/04 [facility] CHEM PANEL ALT 21 0 - 65 07/04 [facility] CHEM PANEL AST 16 0 - 37 07/04 [facility] CHEM PANEL Bili Direct 0.1 0.0 - 0.3 07/04 [facility] CHEM PANEL Bili Total 0.4 0.2 - 1.3 07/04 [facility] CHEM PANEL Phosphorus 3.3 2.5 - 4.5 07/04 [facility] CHEM PANEL Magnesium Lvl 1.8 1.8 - 2.4 07/04 [facility] CHEM PANEL eGFR 66 07/04 <sup>3</sup>R esult Medical Comment: The [place] eGFR is calculated using the CKD-EPI formula. In most young, healthy individuals the eGFR will be >90 mL/min/1.73m2 . The eGFR declines with age. An eGFR of 60-89 may be normal in some populations, particularly the elderly, for whom the CKD-EPI formula has not been extensively validated. Use of the eGFR is not recommended in the following populations:& lt;br/>
I ndividuals with unstable creatinine concentration s, including patients and those with serious co-morbid conditions.<b r/>
Patie nts with extremes in muscle mass or diet.

The data above are obtained from the National Kidney Disease Education Program (NKDEP) which additionally recommends that when the eGFR is used in patients with extremes of body mass index for purposes of drug dosing, the eGFR should be multiplied by the estimated BMI. CHEM PANEL AGAP 11.5 10.0 - 07/04 [facility] 20.0 [facility] CHEM PANEL Calcium Lvl 8.3 8.5 - 10.5 07/04 [facility] CHEM PANEL Sodium Lvl 144 135 - 145 07/04 [facility] CHEM PANEL Potassium Lvl 4.5 3.5 - 5.1 07/04 [facility] CHEM PANEL Chloride Lvl 113 95 - 109 07/04 [facility] CHEM PANEL CO2 24 24 - 32 07/04 [facility] CHEM PANEL Glucose Lvl 107 70 - 99 07/04 <sup>6</sup>I nterpretive Medical Data: Adult Center reference range values reflect the clinical guidelines
of the [employer] [employer]. CHEM PANEL BUN 12 7 - 22 07/04 [facility] CHEM PANEL Creatinine 0.9 0.5 - 1.4 07/04 [facility] HEMATOLOGY INR 1.14 0.85 - 07/04 <sup>12</sup> [facility] 1.17 Interpretive Medical Data: Center RECOMMENDED RANGES FOR PROTIME INR:
2.0-3.0 for most medical and surgical thromboemboli c states.
2.5-3.5 for artificial heart valves and recurrent embolism.<br/ >
INR SHOULD BE USED ONLY FOR PATIENTS ON STABLE ANTICOAGULANT THERAPY. HEMATOLOGY PTT 26.0 22.9 - 07/04 <sup>14</sup> [facility] 35.8 Interpretive Medical Data: Heparin Center Therapeutic Range: 57 - 92 Seconds HEMATOLOGY PT 14.7 12.0 - 07/04 [place] 14. Medical Center PARATHYROID Ca Norm WB 1.06 1.05 - 07/04 [facility] PROFILE 1. [facility] Center PARATHYROID Ca Ion WB 1.06 1.05 - 07/04 [facility] PROFILE 10.01 Medical Center DRUG SCREEN UDS Note See Note 9 07/03 <sup>9</sup>I [facility] *NA nterpretive Medical (07/03/14 10:50 AM) Data: Drugs Center reported as positive have not been confirmed by a second
ut thod and should be used for medical purposes only. To order
con firmation, contact laboratory.<b r/>
not e: Below are cut-off concentration s for all urine drugs of
abuse performed in the laboratory. Some drugs listed in the table
may not be included in this panel.
<b r/>Descriptio n Cut-off concentration
----- ------
Am phetamine 1000 ng/mL
Bar biturates 200 ng/mL
Diogo zodiazepines 300 ng/mL
Alexis maria fernanda metabolites 300 ng/mL
Opi ates 300 ng/mL
Phencyclidine 25 ng/mL
Pro poxyphene 300 ng/mL
Marijuana metabolites 50 ng/mL
Met hadone 300 ng/mL
Urine alcohol 20 mg/dL DRUG SCREEN U Opiate Scr Negative Negative 07/03 [facility] *NA* Medical (07/03/14 10:50 AM) Center DRUG SCREEN U Phencyc Scr Negative Negative 07/03 [facility] *NA* Medical (07/03/14 10:50 AM) Center DRUG SCREEN U Cocaine Scr Negative Negative 07/03 [facility] [place] *NA* Medical (07/03/14 10:50 AM) Center DRUG SCREEN U Benzodia Negative Negative 07/03 [place] [facility] *NA* Medical (07/03/14 10:50 AM) Center DRUG SCREEN U Cannab Scr Negative Negative 07/03 [place] *NA* Medical (07/03/14 10:50 AM) Center DRUG SCREEN U Amph Scr Negative Negative 07/03 [place] *NA* Medical (07/03/14 10:50 AM) Center DRUG SCREEN U Shauna Scr Negative Negative 07/03 [place] *NA* Medical (07/03/14 10:50 AM) Center LIPIDS CHD Risk 1.95 3.90 - 07/03 [facility] 5.80 [facility] LIPIDS VLDL 8 07/03 [facility] LIPIDS LDL 72 <=99 mg/dL 07/03 [facility] (Calculated) [facility] LIPIDS Trig 42 <=149 07/03 [facility] mg/dL [facility] LIPIDS Chol 164 <=199 07/03 [facility] mg/dL [facility] LIPIDS HDL 84 >=61 mg/dL 07/03 <sup>7</sup>R esult Medical Comment: Center Specimen Slightly Hemolyzed. SPECIAL Hgb A1C 4.9 <=5.6 % 07/03 [facility] CHEMISTRY [facility] URINE AND UA <=1.0 0.1 - 1.0 07/03 [facility] STOOL Urobilinogen mg/dL [facility] URINE AND UA Bacteria Occasional None Seen 07/03 [facility] STOOL /HPF /HPF [facility] URINE AND UA Mucus Few /LPF None Seen 07/03 [facility] STOOL /LPF [facility] URINE AND UA Amorph Occasional None Seen 07/03 [facility] STOOL Christin /HPF /HPF [facility] URINE AND UA Sq Epi Occasional Few /LPF 07/03 [facility] STOOL /LPF [facility] URINE AND UA WBC 4 0 - 5 07/03 [facility] STOOL [facility] URINE AND UA Nitrite Negative Negative 07/03 [facility] STOOL (07/03/14 10:50 AM) [facility] URINE AND UA Blood Negative Negative 07/03 [facility] STOOL (07/03/14 10:50 AM) [facility] URINE AND UA Ketones Negative Negative 07/03 [facility] STOOL mg/dL mg/dL [facility] URINE AND UA RBC 2 0 - 2 07/03 [facility] STOOL [facility] URINE AND UA Leuk Est Negative Negative 07/03 [facility] STOOL (07/03/14 10:50 AM) [facility] URINE AND UA Color Light Yellow Yellow 07/03 [facility] STOOL *NA* [facility] (07/03/14 10:50 AM) [place] URINE AND UA pH 5.0 5.0 - 8.0 07/03 [facility] STOOL [facility] URINE AND UA Bili Negative Negative 07/03 [facility] STOOL *NA* [facility] (07/03/14 10:50 AM) [place] URINE AND UA Glucose Negative Negative 07/03 [facility] STOOL mg/dL mg/dL [facility] URINE AND UA Turbidity Slight Clear 07/03 [facility] *ABN* [facility] (07/03/14 10:50 AM) [place] URINE AND UA Spec Grav 1.007 <=1.030 07/03 [facility] URINE AND UA Protein Negative Negative 07/03 [facility] STOOL mg/dL mg/dL [facility] BACTERIAL - MRSA by PCR Negative 16 07/03 <sup>16</sup> [facility] SEROLOGY (07/03/14 3:11 AM) Interpretive Medical Data: Center Interpretive Data: The Kerri LightCycler MRSA assay is a qualitative test for the direct detection of nasal colonization with methicillin-r esistant Staphylococcu s aureus (MRSA) to aid in the prevention and control of MRSA infections in healthcare settings. A positive result does not indicate an infection or require treatment. A negative result does not exclude colonization or infection.

The polymerase chain reaction (PCR) assay detects a proprietary sequence indicative of the integration of the SCCmec cassette into the Staphylococcu s aureus chromosome, indicating the presence of MRSA DNA. The assay utilizes FDA cleared IVD reagents. Performance characteristi cs have been verified by the [facility] within the [facility]. The [facility] is authorized under the Clinical Laboratory Improvement Amendment of 1988 (CLIA-88) to perform high complexity testing. CARDIAC Troponin-I <0.02 0.00 - 07/03 [facility] ENZYMES 0.40 [facility] CARDIAC Total CK 51 12 - 191 07/03 [facility] ENZYMES [facility] CHEM PANEL Phosphorus 2.8 2.5 - 4.5 07/03 [facility] CHEM PANEL Magnesium Lvl 1.7 1.8 - 2.4 07/03 [facility] CHEM PANEL Total Protein 5.6 6.4 - 8.4 07/03 [facility] CHEM PANEL Albumin Lvl 3.0 3.5 - 5.0 07/03 [facility] CHEM PANEL Globulin 2.6 2.0 - 4.0 07/03 [facility] CHEM PANEL A/G Ratio 1.2 0.7 - 1.6 07/03 [facility] CHEM PANEL ALT 26 0 - 65 07/03 [facility] CHEM PANEL Alk Phos 66 39 - 136 07/03 [facility] CHEM PANEL AST 18 0 - 37 07/03 [facility] CHEM PANEL Bili Indirect 0.1 0.0 - 1.0 07/03 [facility] CHEM PANEL Bili Total 0.2 0.2 - 1.3 07/03 [facility] CHEM PANEL Bili Direct 0.1 0.0 - 0.3 07/03 [facility] HEMATOLOGY PTT 28.0 22.9 - 07/03 <sup>15</sup> [place] 35.8 /2013 Interpretive Medical Data: Heparin Center Therapeutic Range: 57 - 92 Seconds PARATHYROID Ca Norm WB 1.01 1.05 - 07/03 [place] PROFILE 1. [facility] PARATHYROID Ca Ion WB 1.04 1.05 - 07/03 [place] PROFILE 1. [facility] CARDIAC Troponin-T 0.031 0.000 - 07/03 [place] ENZYMES 0.100 [facility] BLOOD BANK Antibody Scrn Negative 07/03 [facility] RESULTS (07/02/14 11:20 PM) [facility] BLOOD BANK ABO/Rh O POS 07/03 [place] RESULTS /2013 [facility] CARDIAC Troponin-I <0.02 0.00 - 07/03 [place] ENZYMES 0.40 [facility] CARDIAC Total CK 59 12 - 191 07/03 [place] ENZYMES /2013 [facility] CARDIAC CK MB 0.7 0.5 - 3.6 07/03 [place] ENZYMES /2013 [facility] CARDIAC CK MB Index 1.2 0.0 - 2.5 07/03 [facility] HEMATOLOGY Basophils # 0.0 0.0 - 0.2 07/03 [facility] HEMATOLOGY RBC Morph Normal 07/03 [facility] (07/02/14 10:15 PM) [facility] HEMATOLOGY Plt Morph Normal 07/03 [facility] (07/02/14 10:15 PM) [facility] CHEM PANEL POC 1.2 0.5 - 1.4 07/03 [facility] Center Pathology Reports No Data Provided for This Section Diagnostic Reports No Data Provided for This Section Consultation Notes No Data Provided for This Section Discharge Summaries No Data Provided for This Section History and Physicals No Data Provided for This Section Vital Signs Vital Sign Value Date Comments Source Height 162.56 cm 07/20/2018 [facility] BMI Calculated 25.8 07/20/2018 [facility] Weight 68.182 07/20/2018 [facility] Heart Rate 71 07/20/2018 [facility] Respitory Rate 16 07/20/2018 [facility] Systolic (mm Hg) 124 07/20/2018 [facility] Diastolic (mm Hg) 82 07/20/2018 [facility] Systolic (mm Hg) 147 07/08/[address] [facility] Respitory Rate 35 07/08/[address] [facility] Diastolic (mm Hg) 74 07/08/[address] [facility] Respitory Rate 22 07/07/[address] [facility] Diastolic (mm Hg) 68 07/07/[address] [facility] Respitory Rate 20 07/07/[address] [facility] Systolic (mm Hg) 126 07/07/[address] [facility] Diastolic (mm Hg) 75 07/07/[address] [facility] Systolic (mm Hg) 118 07/07/[address] [facility] Heart Rate 69 07/04/[address] [facility] Heart Rate 72 07/04/[address] [facility] Heart Rate 67 07/04/[address] [facility] Height 162.56 cm 07/03/[address] [facility] Weight 83 07/03/[address] [facility] BMI Calculated 31.41 07/03/[address] [facility] Height 162.56 cm 07/03/[address] [facility] Weight 83 07/03/[address] [facility] BMI Calculated 31.41 07/03/[address] [facility] Temperature Oral (F) 97.0 F 07/03/[address] [facility] Temperature Oral (F) 97.9 F 07/03/[address] [facility] BMI Calculated 30.1 07/03/[address] [facility] Weight 79.545 07/03/[address] [facility] Height 162.56 cm 07/03/[address] [facility] Encounters Location Location Encounter Encounter Reason Attending ADM DC Status Source Details Type Number For Provider Date Date Visit [facility] [id number] TzRenetta 07/03 07/08 [facility] /2013 [facility] Outpatient [id number] SONIA 12/15 [facility] [id number] SONIA 03/16 [facility] [id number] SONIA 07/20 [facility] [id number] Sonia 07/20 07/21 [facility] [id number] SONIA 11/09 [facility] [id number] Sonia 03/08 [facility] [id number] Sonia 09/13 [facility] Procedures Procedure Code Date Perfomer Comments Source Splenectomy [id number] [facility] Splenectomy [id number] [facility] Assessment and Plan Assessment and Plan Date Source Extracted from:Title: Progress Note * 07/08/[address] [facility] Author: Yousif Arrieta MD Date: 07/07/14 Impression and Plan Hypotension: - resolved UTI: - Cultures growing enterococcus, but not in signifcant range - pt does not have any symptoms, no fever, WBC slightly elevated but no left shift and hence no antibiotics for now Acute stroke: - on ASA to coumadin bridge and statin multifocal bruising: - s/p fall and tPA - stable Anemia: - acute, frm bruising - Hb stable Alcohol abuse: - counselled - on thiamine Atrial fibrillation: - paroxysmal - Rate controlled without meds - ASA to coumadin bridge DVT prophylaxis, on heparin sub q. DISPO: [facility] [place] [facility] [place]. Pager [phone] Extracted from:Title: Clinical Document Author: Nidhi Muñiz DO Date: [...] and near fall again, called 911, admit [facility] 07/02/14 L humerus/forearm x-rays negative for fracture, EKG A -fib, diagnosed R MCA/neon installer /cerebellar infarct s/p iv tpa, cta showed R M1 occlusion and R distal neon installer occlusion s/p thrombectomy with recanalization o f [...] Bedtime 07/05/14 cefTRIAXone (Rocephin) 1 gm IVPB [id number] 07/03/14 docusate 100 mg PO Q12H 07/04/14 [...] mg PO Q4H 07/02/14 bisacodyl 10 mg [place] Daily 07/02/14 enalapril 0.625 mg IVP Q6H [...] 37.06 axil ----- --- --- -- --- -- - --- 07/05 12:00 ---- ---- ---- 155/70 [...] weakness Right: 5/5 delt/biceps/triceps/we/ff/hf/ke/f/pf Left: 4+/5 delt/biceps/triceps/we/ff 3/ hf/ke/df/pf L>R dysmetria sensation intact bilaterally 07/03 [...] involving the anterior insula. 3. 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 4. Infarct of the inferior [...] ap 61 ASSESSMENT:68 yo LH F admit [facility] 07/02/14 diagnosed R MCA/neon installer/cerebellar infarct with functional deficits of subjectively decreased vision L eye, L leg> L arm weakness, L>R dysmetria. RECOMMEND: Neurorehabilitation PT/OT/ST. cleared for regular diet with thin liquids. 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 Appreciate Consult. Extracted from:Title: Clinical Document Author: Klaus Holly MD Date: 07/02/14 STROKE TEAM / NEUROLOGY - HISTORY AND PHYSICAL Attending of Record: Dr. 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 Treat fevers and blood sugars aggressively. PT/OT/MANAGER REHAB consults - rehab assessments have been ordered. NPO prior to bedside swallow assessment; and escalation of care as determined by nurse DVT prophylaxis with SCDs. THE FOLLOWING WERE PRESENT ON ADMISSION: CHIEF SCIENCE OFFICER -Hemiparesis or Hemiplegia ACUTE STROKE BENCHMARKS: TIME PATIENT LAST SEEN NORMAL 20:15 CODE STROKE ACTIVATION (CARE4 COMPUTER TIME) approximately 21:25 NEUROLOGY RESIDENT ARRIVAL AT THE BEDSIDE (CARE4 COMPUTER TIME) 21:30 IV TPA BOLUS (TIME AND DOSE) 21:48 7.2mg IV TPA INFUSION (TIME AND DOSE) 21:49 64.4mg DELAYS IN THE CODE STROKE PROCESS none The patient was discussed with Dr. Dominguez, the fellow utilization review nurse. Klaus Holly MD PGY2 Neurology Resident MSO [phone] Pager [phone] Addendum by Brissa Dominguez MD on 07/03/2014 02:05 Stroke Fellow Addendum Please refer to the resident physician's note above for full details. I have discussed the case with the utilization review nurse resident and agree with their assessment with the following additions/exceptions: She is a 68yo left handed woman with h/o splenectomy and possible DVT 4 years ago, who presents today with acute onset of a R MCA syndrome, onset 20:15pm, witnessed by . She had dysarthria, and l eft sided weakness, en route she was noted to be in afib (new dx). On arrival, she was slightly drowsy but oriented and communicative, signifcant left sided spatial, visual, sensory neglect, R gaze pref erence, L facial droop, dysarthria, and a left hemiparesis, NIHSS=14. She was complaining of a headache that started a week ago but now worse. She described it as a "sinus" headache. Head CT s howed old R DATA ENTRY MACHINE OPERATOR territory and R cerebellar infarcts though she denies a h/o strokes. She was oriented, not aphasic, and denied any recent major trauma, though she had some cuts/abrasions from a fall, de nied being on any blood thinners but has been taking aspirin for "sinus" headache for the past week. I reviewed the other absolute tPA exclusions with her and explained to her the risks of tPA , specifically hemorrhage which can include intracranial hemorrhage. Given severity of stroke, we would recommend treating and she provided verbal consent. tPA was given at 21:48. Her CTA showed a right M1 cut off with large perfusional mismatch. Thus, the neuroIR team was also consulted to evaluate for IAT and we were in agreement that she would be a good IAT candidate. tPA infusion was interrupted f or worsened/severe headache with new nausea but head CT was negative for hemorrhage. During this, her arrived and I was able to consent him for the procedure at around 22:35. She was taken to I R, procedure started 23:38 and angio demonstarted R M1 occlusion and also incidental Acomn aneurysm; recanalization acheived at 00:15 with solitare x 1. She had a transient hypotension with anesthesia i nduction, and required intermittent pressors during the procedure. Shortely after the procedure, she was awake, talking, following commands, resolved gaze preference, improving neglect. She was also abl e to lift her left arm antigravity across her chest. Her leg was not antigravity but she began to have more movement in her toes and now had some withdraw there. I spoke to her and her more to g ather a more detailed history and she has a h/o migraines with visual auras which began only 1 year ago where she sees flashing lights followed by an intense headache. Upon asking specifically about her vision, she describes a left sided visual field defect since around 4 days ago. This was followed by a headache. Around that time, she also sustained a fall from dizziness at a grocery store, fallng in to a shelf with glass, thus sustaining some of the cuts in her forearm but no fractures. STROKE TEAM / NEUROLOGY - NIHSS NIH Stroke Scale (NIHSS) 1a. Level of Consciousness; ___0-alert __X_1-drowsy ___2-stupor ___3-comatose 1b. LOC Questions month and age; __X_0-both ___1-one ___2-neither 1c. LOC Commands open/close eyes, waiter/waitress formal/release non-paretic hand; __X_0-both ___ 1-one ___2-neither 2. Best Gaze; ___0-nl __X_1-partial ___2-forced gaze 3. Visual Emery; ___0-No visual loss. ___1-Partial hemianopia __X_2-Complete _ __3-Bilateral 4. 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 Etiology is likely cardioemoblic. 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 [] repeat head CT @ 6am to look monitor for hemorrhagic conversion - Post tPA vital signs and neurochecks per protocol - Goal [id number] - HOB flat, NS 125cc/hr, aggressive blood [...] tPA, why? Delays in this process: (None) Plan of Care No Data Provided for This Section Social History Social History Date Source Social History TypeResponse 07/03/2014 [facility] Substance Abuse Use: None. Alcohol Current, Type Wine. Frequency: Daily. Smoking Status Former smoker; Type: Cigarettes; Exposure to Tobacco Smoke None; Cigarette Smoking Last 365 Days No; Reg Smoking Cessation Counseling No entered on: 11/09/18 Social History TypeResponse 07/03/[address] [facility] Substance Abuse Use: None Alcohol Use: Current, Type: Wine, Frequency: Daily Smoking Status Former smoker, Type: Cigarettes, Exposure to Tobacco Smoke None, Cigarette Smoking Last 365 Days No, Reg Smoking Cessation Counseling No Family History No Data Provided for This Section Advance Directives No Data Provided for This Section Functional Status No Data Provided for This Section
--- OUTSIDE RECORDS SUMMARY | 2019-03-10 11:40 | XMS REPORT ---
[...] System Date Date Carbidopa-Levo [facility] [address]-52 Active not dopa defined Xarelto [facility] [address]-70 Active not defined Tylenol # 3 NDC 0 Active not defined Omeprazole [facility] [id number] Active not defined Tylenol # 3 NDC 0 300/30mg PO Q Nov 03, Active one tab 4-6 HRS PRN 2019 PAIN Results No Known Results Summary Purpose eClinicalWorks Submission
--- OUTSIDE RECORDS SUMMARY | 2019-03-10 11:40 | XMS REPORT ---
[...] End Status Dosage System Date Date Carbidopa-Levo [facility] [address]-38 Active not dopa defined Tylenol # 3 NDC 0 Active not defined Omeprazole [facility] 20482329898 Active not defined Xarelto [facility] [address]-24 Active not defined Tylenol # 3 NDC 0 300/30mg PO Q Nov 03, Active one tab 4-6 HRS PRN 2019 PAIN Results No Known Results Summary Purpose eClinicalWorks Submission
--- OUTSIDE RECORDS SUMMARY | 2019-03-10 11:40 | XMS REPORT ---
[...] End Date Status Dosage Date Omeprazole [facility] 34916-08 Active not defined 81-02 Tylenol # 3 NDC 0 Active not defined Xarelto [facility] 59291-88 Active not defined 77-10 Carbidopa-Levod [facility] 58389-57 Active not defined opa 12-07 Tylenol # 3 NDC 0 300/30mg PO Q Nov 03, Active one tab 4-6 HRS PRN PAIN 2019 Results No Known Results Summary Purpose eClinicalWorks Submission
--- OUTSIDE RECORDS SUMMARY | 2019-03-10 11:40 | XMS REPORT ---
:1945 Author Organization eClinicalWorks Care Team Providers Name Role Phone Trenton Do Provider Role Unavailable Allergies No Known Allergies Problems Problem Type Condition Code Onset Dates Condition Status Problem Cellulitis of right forearm L03.113 Active Problem Abrasion of right elbow, initial S50.311A Active encounter Problem Abrasion of right elbow, S50.311D Active subsequent encounter Problem Pain in joint of right wrist M25.531 Active Problem Closed Colles'' fracture of right S52.531D Active radius with routine healing, subsequent encounter Problem Closed Colles'' fracture of right S52.531A Active radius, initial encounter Medications No Known Medications Results No Known Results Summary Purpose eClinicalVigilix Submission
--- OUTSIDE RECORDS SUMMARY | 2019-03-10 11:40 | XMS REPORT ---
[...] Start End Date Status Dosage Date Carbidopa-Levod [facility] [address]7466-74 Active not defined opa 12-07 Xarelto [facility] 45629-38 Active not defined 77-10 [place] [address]-59 Active not defined 81-02 Tylenol # 3 NDC 0 300/30mg PO Q Nov 03, Active one tab 4-6 HRS PRN PAIN 2018 Tylenol # 3 NDC 0 Active not defined Results No Known Results Summary Purpose eClinicalWorks Submission
--- OUTSIDE RECORDS SUMMARY | 2019-03-10 11:41 | XMS REPORT ---
[...] Medications Results No Known Results Summary Purpose eClinicalStroodle Submission
--- OUTSIDE RECORDS SUMMARY | 2019-03-10 11:41 | XMS REPORT ---
:1945 Author Organization eClinicalWorks Care Team Providers Name Role Phone Trenton Do Provider Role Unavailable Allergies, Adverse Reactions, Alerts Substance Reaction Event Type Keflex rash Drug Allergy Problems Problem Type Condition Code Onset Dates Condition Status Assessment Abrasion of right elbow, S50.311D Active subsequent encounter Assessment Pain in joint of right wrist M25.531 Active Assessment Closed Colles'' fracture of right S52.531D Active radius with routine healing, subsequent encounter Assessment Cellulitis of right forearm L03.113 Active Problem Cellulitis of right forearm L03.113 Active Problem Abrasion of right elbow, initial S50.311A Active encounter Problem Abrasion of right elbow, S50.311D Active subsequent encounter Problem Pain in joint of right wrist M25.531 Active Problem Closed Colles'' fracture of right S52.531D Active radius with routine healing, subsequent encounter Problem Closed Colles'' fracture of right S52.531A Active radius, initial encounter Medications Medication Code Code Instructions Start End Date Status Dosage System Date Carbidopa-Levo [facility] [address]-35 Active not dopa defined Amoxicillin [facility] 58849136911 875 MG Orally December Active 1 tablet TID 2018 Xarelto [facility] [address]-34 Active not defined Omeprazole [facility] [id number] Active not defined Tylenol # 3 NDC 0 300/30mg PO Q Nov 03, Active one tab 4-6 HRS PRN 2018 PAIN Results No Known Results Summary Purpose eClinicalWorks Submission
--- OUTSIDE RECORDS SUMMARY | 2019-03-10 11:41 | XMS REPORT ---
[...] Start End Date Status Dosage System Date Omeprazole [facility] 16371565654 Active not defined Xarelto [facility] [address]-37 Active not defined Tylenol # 3 NDC 0 300/30mg PO Q Nov 03, Active one tab 4-6 HRS PRN 2018 PAIN Tylenol # 3 NDC 0 Active not defined Carbidopa-Levo [facility] [address]-32 Active not dopa defined Amoxicillin [facility] 46102720268 875 MG Orally December Active 1 tablet every 12 hrs 2018 Amoxicillin [facility] 81505377456 875 MG Orally December Active 1 tablet TID 2018 Results No Known Results Summary Purpose eClinicalWorks Submission
--- OUTSIDE RECORDS SUMMARY | 2019-03-10 11:41 | XMS REPORT ---
:1945 Author Organization eClinicalWorks Care Team Providers Name Role Phone Trenton Do Provider Role Unavailable Allergies, Adverse Reactions, Alerts Substance Reaction Event Type Keflex rash Drug Allergy Problems Problem Type Condition Code Onset Dates Condition Status Assessment Abrasion of right elbow, S50.311D Active subsequent encounter Problem Pain in joint of right wrist M25.531 Active Assessment Impetigo any site L01.00 Active Assessment Streptococcal infection A49.1 Active Assessment Cellulitis of right forearm L03.113 Active Problem Streptococcal infection A49.1 Active Problem Abrasion of right elbow, S50.311D Active subsequent encounter Problem Impetigo any site L01.00 Active Problem Closed Colles'' fracture of right S52.531D Active radius with routine healing, subsequent encounter Problem Closed Colles'' fracture of right S52.531A Active radius, initial encounter Problem Cellulitis of right forearm L03.113 Active Problem Abrasion of right elbow, initial S50.311A Active encounter Medications Medication Code Code Instructions Start End Status Dosage System Date Date Tylenol # 3 NDC 0 300/30mg PO Q Nov 03, Active one tab 4-6 HRS PRN 2018 PAIN Xarelto [facility] [address]-32 Active not defined Amoxicillin [facility] 36785569555 875 MG Orally 1 DecemberJanuary 10, Active 1 tablet po BID 2018 Carbidopa-Levod [facility] [address]-71 Active not opa defined Omeprazole [facility] 20254653373 Active not defined Results No Known Results Summary Purpose eClinicalWorks Submission
--- OUTSIDE RECORDS SUMMARY | 2019-03-10 11:41 | XMS REPORT ---
:1945 Author Organization eClinicalWorks Care Team Providers Name Role Phone Sweeney Ryland Provider Role Unavailable Allergies, Adverse Reactions, Alerts Substance Reaction Event Type Keflex rash Drug Allergy Problems Problem Type Condition Code Onset Dates Condition Status Assessment Abrasion of right elbow, S50.311D Active subsequent encounter Problem Pain in joint of right wrist M25.531 Active Assessment Right elbow pain M25.521 Active Assessment Impetigo any site L01.00 Active [...] Start End Status Dosage System Date Date Xarelto [facility] [address]-57 Active not defined Omeprazole [facility] 26181324231 Active not defined Tylenol # 3 NDC 0 300/30mg PO Q Nov 03, Active one tab 4-6 HRS PRN 2019 PAIN Carbidopa-Levo [facility] [address]-37 Active not dopa defined Results No Known Results Summary Purpose eClinicalWorks Submission
[2019-03-10 12:55] LABS: Urine Blood TRACE (NEG); Urine Glucose NEGATIVE (NEG); Urine Protein NEGATIVE (NEG); Urine pH 5.5 (5.0-7.0)
[2019-03-10 14:16] LABS: Absolute Lymphocytes (CBC) 2.5 K/uL (0.7-4.9); Basophils % 0.8 % (0-1.3); Eosinophils % 4.8 % (0-4.4); Hematocrit 46.3 % (36.0-45.0); Lymphocytes % 30.8 % (15.3-44.8); MPV 10.6 fL (7.6-11.3); Monocytes % 10.4 % (3.3-12.3); RBC Red Blood Cell Count 4.92 M/uL (3.86-4.86)
[2019-03-10 14:34] LABS: Albumin 3.9 g/dL (3.4-5.0); Bilirubin Total 0.6 mg/dL (0.2-1.0); Potassium 4.1 mmol/L (3.5-5.1); Protein, Total 7.4 g/dL (6.4-8.2)
--- NOTE | 2019-03-10 15:01 | ER ---
Nurse's Notes [facility] Name: Ning Coffey Age: 73 yrs Sex: Female : 1945 Arrival Date: 03/10/2019 Time: 11:35 Bed 8 Private MD: Diagnosis: Impetigo Presentation: 03/10 11:51 Presenting complaint: Patient states: was diagnosed with impetigo on left forearm and iw started on antibiotics (amox-clav) was switched to Levaquin 3 days ago, not getting better, is oozing more and itching, denies fever. Transition of care: patient was not received from another setting of care. Onset of symptoms was March 07, 2019. Risk Assessment: Do you want to hurt yourself or someone else? Patient reports no desire to harm self or others. Initial Sepsis Screen: Does the patient meet any 2 criteria? No. Patient's initial sepsis screen is negative. Does the patient have a suspected source of infection? No. Patient's initial sepsis screen is negative. Care prior to arrival: None. 11:51 Method Of Arrival: Ambulatory iw 11:51 Acuity: DANIELLE 3 iw Historical: - Allergies: 11:56 Sulfa (Sulfonamide Antibiotics); iw - Home Meds: 11:56 carbidopa-levodopa 25-100 mg oral tab [Active]; Omeprazole Oral as needed [Active]; iw Xarelto 15 mg Oral tab daily [Active]; - PMHx: 11:56 CVA; Parkinsons; iw - PSHx: 11:56 Hysterectomy; splenectomy; Tonsillectomy; iw - Immunization history:: Adult Immunizations not up to date. - Social history:: Smoking status: Patient/guardian denies using tobacco. - Ebola Screening: : Patient negative for fever greater than or equal to 101.5 degrees Fahrenheit, and additional compatible Ebola Virus Disease symptoms Patient denies exposure to infectious person Patient denies travel to an Ebola-affected area in the 21 days before illness onset No symptoms or risks identified at this time. Screenin:15 Abuse screen: Denies threats or abuse. Denies injuries from another. Nutritional sv screening: No deficits noted. Tuberculosis screening: No symptoms or risk factors identified. Fall Risk None identified. Assessment: 12:15 General: Appears in no apparent distress. uncomfortable, well developed, Behavior is sv calm, cooperative, appropriate for age. Pain: Denies pain. Neuro: Level of Consciousness is awake, alert, obeys commands, Oriented to person, place, time, situation, Moves all extremities. Full function Gait is steady. Respiratory: Respiratory effort is even, unlabored, Respiratory pattern is regular, symmetrical. Derm: Skin is normal, Wound noted dorsal aspect of left forearm Wound is open and drainage noted. Musculoskeletal: Range of motion: intact in all extremities. 12:50 Reassessment: Harmony from inside lab at bedside to obtain lab recollects. sv 14:24 Reassessment: Patient appears in no apparent distress at this time. No changes from sv previously documented assessment. Patient and/or family updated on plan of care and expected duration. Pain level reassessed. Patient is alert, oriented x 3, equal unlabored respirations, skin warm/dry/pink. 15:25 Reassessment: Patient appears in no apparent distress at this time. No changes from sv previously documented assessment. Patient and/or family updated on plan of care and expected duration. Pain level reassessed. Patient is alert, oriented x 3, equal unlabored respirations, skin warm/dry/pink. Vital Signs: 11:56 BP 156 / 110; Pulse 78; Resp 16; Temp 98.0(TE); Pulse Ox 99% on R/A; Weight 70.31 kg; iw Height 5 ft. 3 in. (160.02 cm); Pain 0/10; 14:24 BP 123 / 77; Pulse 79; Resp 16; Pulse Ox 99% ; sv 11:56 Body Mass Index 27.46 (70.31 kg, 160.02 cm) ED Course: 11:35 Patient arrived in ED. as 11:44 Marlon Watson PA is PHCP. jmm 11:44 Raz Freire MD is Attending Physician. jm 11:55 Triage completed. iw 11:56 Arm band placed on. iw 12:08 Lyla Patel, CHIDI is Primary Nurse. sv 12:15 Patient has correct armband on for positive identification. Bed in low position. Call sv light in reach. Adult w/ patient. Pulse ox on. NIBP on. Door closed. Head of bed elevated. 12:15 Missed attempt(s): 22 gauge in right antecubital area. Bleeding controlled, band aid sv applied, catheter tip intact. 12:20 Initial lab(s) drawn, by me, sent to lab. Inserted saline lock: 24 gauge in left hand, sv using aseptic technique. Blood collected. Flushed right hand with 5 ml normal saline. 14:09 Lab(s) recollected, by labor custodian, sent to lab. sv 15:30 No provider procedures requiring assistance completed. Patient did not have IV access iw during this emergency room visit. Administered Medications: 15:20 Drug: Doxycycline 200 mg Route: PO; iw 15:30 Follow up: Response: No adverse reaction iw Outcome: 14:54 Discharge ordered by . alisia 15:30 Discharged to home ambulatory, with family. iw 15:30 Condition: good 15:30 Discharge instructions given to patient, family, Instructed on discharge instructions, follow up and referral plans. medication usage, Demonstrated understanding of instructions, follow-up care, medications, Prescriptions given X 2. 15:30 Patient left the ED. iw Signatures: Lyla Patel, CHIDI RN Marlon Ascencio PA PA jmm Martinez, Amelia as Williams, Irene, CHIDI MURILLO iw
--- NOTE | 2019-03-10 15:01 | EDPHYS ---
Physician Documentation [facility] Name: Ning Coffey Age: 73 yrs Sex: Female : 1945 Arrival Date: 03/10/2019 Time: 11:35 Bed 8 Private MD: ED Physician Raz Freire HPI: 03/10 11:45 This 73 yrs old Female presents to ER via Ambulatory with complaints of jmm Infection not healing. 11:45 The patient's rash thought to be caused by Contact allergy. The rash is located on the jmm right arm and left arm. Onset: The symptoms/episode began/occurred 1 week(s) ago. Associated signs and symptoms: Pertinent positives: itching, Pertinent negatives: fever, swelling of lips, swelling of throat, swelling of tongue, vomiting, wheezing. This is a 73 year old female with a history of parkinsons disease that presents to the ED with complaints of infection to her left and right forearm. Patient states she was initially diagnosed with impetigo and treated with augmentin with no relief. Patient was switched to levaquin 3 days ago with no relief. Patient denies fever. . Historical: - Allergies: 11:56 Sulfa (Sulfonamide Antibiotics); iw - Home Meds: 11:56 carbidopa-levodopa 25-100 mg oral tab [Active]; Omeprazole Oral as needed [Active]; iw Xarelto 15 mg Oral tab daily [Active]; - PMHx: 11:56 CVA; Parkinsons; iw - PSHx: 11:56 Hysterectomy; splenectomy; Tonsillectomy; iw - Immunization history:: Adult Immunizations not up to date. - Social history:: Smoking status: Patient/guardian denies using tobacco. - Ebola Screening: : Patient negative for fever greater than or equal to 101.5 degrees Fahrenheit, and additional compatible Ebola Virus Disease symptoms Patient denies exposure to infectious person Patient denies travel to an Ebola-affected area in the 21 days before illness onset No symptoms or risks identified at this time. ROS: 11:56 Constitutional: Negative for fever, chills, and weight loss, Cardiovascular: Negative jm for chest pain, palpitations, and edema, Respiratory: Negative for shortness of breath, cough, wheezing, and pleuritic chest pain. 11:56 MS/extremity: Positive for erythema, rash. 11:56 Skin: Positive for rash. 11:56 All other systems are negative. Exam: 11:56 Constitutional: This is a well developed, well nourished patient who is awake, alert, jmm and in no acute distress. Head/Face: atraumatic. Eyes: EOMI, no conjunctival erythema appreciated ENT: Moist Mucus Membranes Neck: Trachea midline, Supple Chest/axilla: Normal chest wall appearance and motion. Cardiovascular: Regular rate and rhythm. No edema appreciated Respiratory: Normal respirations, no respiratory distress appreciated Abdomen/GI: Non distended, soft Back: Normal ROM 11:56 Skin: impetiginous rash noted to the left forearm, non tender to palpation, crusting lesions noted. 11:56 Neuro: Orientation: is normal, Mentation: is normal, Memory: is normal, Gait: is steady. 11:56 Psych: Behavior/mood is pleasant, cooperative. Vital Signs: 11:56 BP 156 / 110; Pulse 78; Resp 16; Temp 98.0(TE); Pulse Ox 99% on R/A; Weight 70.31 kg; iw Height 5 ft. 3 in. (160.02 cm); Pain 0/10; 14:24 BP 123 / 77; Pulse 79; Resp 16; Pulse Ox 99% ; sv 11:56 Body Mass Index 27.46 (70.31 kg, 160.02 cm) iw MDM: 11:45 Patient medically screened. dyan 14:52 Data reviewed: vital signs, nurses notes. Counseling: I had a detailed discussion with [facility] the patient and/or guardian regarding: the historical points, exam findings, and any diagnostic results supporting the discharge/admit diagnosis, lab results, the need for outpatient follow up, to return to the emergency department if symptoms worsen or persist or if there are any questions or concerns that arise at home. ED course: Patient is alert and non toxic in appearance in the ED. Patient advised to follow up with pcp. Symptoms appear consistent with impetigo. Patient is given strict return precautions. patient understood and agrees with the plan of care. . 03/10 11:58 Order name: CBC with Diff; Complete Time: 14:31 [facility] 03/10 11:58 Order name: CMP; Complete Time: 14:37 [facility] 03/10 11:58 Order name: Saline Lock; Complete Time: 12:25 [facility] 03/10 12:47 Order name: Urine Dipstick--Ancillary (enter results); Complete Time: 13:07 ag 03/10 12:48 Order name: Labs - recollect needed; Complete Time: 14:09 ag Administered Medications: 15:20 Drug: Doxycycline 200 mg Route: PO; iw 15:30 Follow up: Response: No adverse reaction iw Disposition: 03/10/19 14:54 Discharged to Home. Impression: Impetigo. - Condition is Stable. - Discharge Instructions: Impetigo, Adult. - Prescriptions for Bactroban 2 % Topical Ointment - Apply to affected area 1 application by TOPICAL route every 12 hours; 30 gram. Doxycycline Hyclate 100 mg Oral Tablet - take 1 tablet by ORAL route every 12 hours; 20 tablet. - Medication Reconciliation Form, Thank You Letter, Antibiotic Education, Prescription Opioid Use form. - Follow up: Private Physician; When: 2 - 3 days; Reason: Recheck today's complaints, Continuance of care, Re-evaluation by your physician. Addendum: 03/16/2019 16:44 Co-signature as Attending Physician, Raz Freire MD I agree with the assessment and c suggs plan of care. Signatures: Dispatcher [employer] EDRaz Cottrell MD MD cha Mickail, Joel, PA PA jmm Williams, Irene, RN RN Ana Maria Riggs Corrections: (The following items were deleted from the chart) 03/10 15:30 14:54 03/10/2019 14:54 Discharged to Home. Impression: Impetigo. Condition is Stable. iw Forms are Medication Reconciliation Form, Thank You Letter, Antibiotic Education, Prescription Opioid Use. Follow up: Private Physician; When: 2 - 3 days; Reason: Recheck today's complaints, Continuance of care, Re-evaluation by your physician. alisia
[2019-03-10] MEDS ORDERED: DOXYCYCLINE 100 MG CAP PO ONE (15:33)
[2019-03-10 15:44] VITALS: TEMP 98; O2SAT 99
[2019-03-10 15:45] VITALS: BP 123/77
== END 2019-03-10 15:30 | disposition home or self-care (01) ==
LOC: ER 11:33
DX: L01.00 Impetigo, unspecified (principal); G20 Parkinson's disease; Z79.01 Long term (current) use of anticoagulants; Z88.2 Allergy status to sulfonamides; Z86.73 Personal history of transient ischemic attack (TIA), and cerebral infarction without residual deficits
CPT/HCPCS: 36415; 80053; 81003; 85025; 99284

== ENCOUNTER 2019-04-23 07:57 | Emergency (ER) | payer OTHER, MEDICARE ==
--- OUTSIDE RECORDS SUMMARY | 2019-04-23 08:02 | XMS REPORT | Continuity of Care Document ---
:1945 Author Organization [facility] Care Team Providers Name Role Phone [facility] [employer] Unavailable Unavailable Problems Problem Status Onset Classification Date Comments Source Date Reported CVA Active 07/02/[address] SARAH Active 07/02/20 [facility] [address] ACUTE STROKE Active 07/02/[address] Atrial Active Problem 02/07/2019 [facility] fibrillation Neuro DVT (Confirmed) Resolved Problem 02/07/2019 [facility] Neuro,[facility] Parkinson Active Problem 02/07/2019 [facility] Atrial Active Problem 03/11/2019 [facility] fibrillation Neuro (disorder) Deep venous Resolved Problem 03/11/2019 [facility] thrombosis Neuro (disorder) Parkinson's Active Problem 03/11/2019 [facility] disease Neuro (disorder) CVA Active [facility] Medications Medication Details Route Status Patient Ordering Order Source Instructions Provider Date Carbidopa 25 MG 1 tab, PO, TID, # Active 03/08/ [facility] / Levodopa 100 90 tab, 4 2018 Neuro MG Oral Tablet Refill(s), Pharmacy: [facility] [id number] Esomeprazole 40 40 mg=1 cap, PO, Active 07/20/ [facility] MG Enteric Daily, 0 2017 Neuro Coated Capsule Refill(s) Carbidopa 25 MG 1 tab, PO, TID, # Active 07/20/ [facility] / Levodopa 100 90 tab, 4 2017 Neuro MG Oral Tablet Refill(s), Pharmacy: [facility] [id number] Warfarin 7.5 mg, 1 tab, Inactive 07/07/ [facility] Route: PO, Drug 2013 Medical form: TAB, Q5PM, Center Dosing Weight 83, kg, Start date: 07/07/14 17:00:00, Duration: 1 doses or times, Stop date: 07/07/14 17:00:00Notes: Nurse to ensure documentation of patient education per anticoagulation policy. Avoid large intake of vitamin-K containing foods diet. (Same As: Coumadin) atorvastatin 20 20 mg=1 tab, PO, Active [facility] [place] mg oral tablet Bedtime, # 30 2013 Medical tab, 3 Refill(s) Center aspirin 325 mg 325 mg=1 tab, PO, Active [facility] tablet Daily, # 100 tab, 2014 Medical 3 Refill(s) Center warfarin 7.5 mg 7.5 mg, PO, Q5PM, Active [facility] oral tablet # 5 tab, 0 2013 Medical Refill(s) Center OLANZapine 2.5 2.5 mg=1 tab, PO, Active [facility] mg oral tablet Q6H, Agitation, 0 2013 Medical Refill(s) Center 0.4 mg=1 tab, PO, Active [facility] Multivitamins Daily, 0 2013 Medical with Folic Acid Refill(s) Center 0.4 mg oral tablet Folic Acid 1 MG 1 mg=1 tab, PO, Active [facility] Oral Tablet Daily, 0 2013 Medical Refill(s) Center Docusate Sodium 100 mg=1 cap, PO, Active [facility] 100 MG Oral Q12H, 0 Refill(s) 2013 Medical Capsule Center benzonatate 100 100 mg=1 cap, PO, Active [facility] mg oral capsule TID, Cough, 0 2013 Medical Refill(s) Center Acetaminophen 650 mg=2 tab, PO, Active [facility] 325 MG Oral Q4H, Pain 2013 Medical Tablet 1-3/Temp > 99.5 Center F, 0 Refill(s) Warfarin 5 mg, 1 tab, Inactive [facility] Route: PO, Drug 2013 Medical form: TAB, Q5PM, Center Dosing Weight 83, kg, Start date: 07/06/14 17:00:00, Duration: 1 doses or times, Stop date: 07/06/14 17:00:00Notes: Nurse to ensure documentation of patient education per anticoagulation policy. Avoid large intake of vitamin-K containing foods diet. (Same As: Coumadin) cefpodoxime 100 mg, Route: Inactive [facility] PO, Drug form: 2013 Medical TAB, [id number], Center Dosing Weight 83, kg, Priority: NOW, Start date: 07/06/14 11:17:00, Duration: 7 day, Stop date: 07/12/14 23:17:00 benzonatate 100 mg, 1 cap, No Longer [facility] Route: PO, Drug Active 2013 Medical form: CAP, TID, Center Dosing Weight 83, kg, PRN Cough, Start date: 07/06/14 2:28:00, Duration: 30 day, Stop date: 08/05/14 2:27:00Notes: (Same As: Simran Red) "Do Not Crush" Mag-Ox 400 800 mg, 2 tab, Inactive [facility] Route: PO, Drug 2013 Medical form: TAB, ONCE, Center Dosing Weight 83, kg, Start date: 07/05/14 15:55:00, Stop date: 07/05/14 15:55:00Notes: (Same as: Mag-Ox 400) Magnesium oxide [id number] elemental magnesium Dose=____mg magnesium oxide (___mg elemental magnesium) Lactated Ringers 1,000 mL, Rate: Inactive [facility] IV 1000 mL 100 ml/hr, Infuse 2013 Medical over: 10 hr, Center Route: IV, Dosing Weight 83 kg, Total Volume: 1,000, Start date: 07/05/14 11:26:00, Duration: 30 day, Stop date: 08/04/14 11:25:00 Lactated Ringers 1,000 mL, Rate: No Longer [facility] IV 1,000 mL 100 ml/hr, Infuse Active 2013 Medical over: 10 hr, Center Route: IV, Dosing Weight 83 kg, Total Volume: 1,000, Priority: STAT, Start date: 07/05/14 10:06:00, Duration: 30 day, Stop date: 08/04/14 10:05:00 Magnesium 2 gm, 50 mL, Inactive [facility] Sulfate Route: IVPB, Drug 2013 Medical form: INJ, ONCE, Center Dosing Weight 83, kg, Total dose=2 gm, Start date: 07/05/14 10:05:00, Duration: 1 doses or times, Stop date: 07/05/14 10:05:00 normal saline 1,000 mL, Rate: Inactive [facility] 0.9% IV 1,000 mL 125 ml/hr, Infuse 2013 Medical over: 8 hr, Center Route: IV, Dosing Weight 83 kg, Total Volume: 1,000, Start date: 07/05/14 9:24:00, Duration: 1 day, Stop date: 07/06/14 9:23:00 Rocephin 1 gm, Route: No Longer [place] IVPB, Drug form: Active 2013 Medical PDR/INJ, [id number], Center Dosing Weight 83, kg, Start date: 07/05/14 8:00:00, Duration: 30 day, Stop date: 08/03/14 8:00:00Notes: Use with 100ml NS mini-bag PLUS and infuse over 30 min ZyPREXA 2.5 mg, 1 tab, Inactive [place] Route: PO, Drug 2013 Medical form: TAB, Center Bedtime, Start date: 07/04/14 21:00:00, Duration: 1 doses or times, Stop date: 07/04/14 21:00:00Notes: (Same as: ZyPREXA) Geodon 5 mg, Route: IM, Inactive [place] Q4H, Dosing 2013 Medical Weight 83, kg, Center Start date: 07/04/14 21:00:00, Duration: 30 day, Stop date: 08/03/14 20:00:00 ZyPREXA 2.5 mg, 1 tab, No Longer [facility] Route: PO, Drug Active 2013 Medical form: TAB, Q6H, Center PRN Agitation, Start date: 07/04/14 17:08:00, Duration: 30 day, Stop date: 08/03/14 17:07:00Notes: (Same as: ZyPREXA) folic acid 1 mg 1 mg, 1 tab, No Longer [facility] oral tablet Route: PO, Drug Active 2013 Medical form: TAB, Daily, Center Start date: 07/04/14 17:00:00, Duration: 30 day, Stop date: 08/03/14 9:00:00Notes: (Same as: Folvite) Sodium Chloride 250 mL, Rate: 999 Inactive [place] 0.9% IV 250 mL ml/hr, Infuse 2013 Medical over: 0.3 hr, Center Route: IV, Dosing Weight 83 kg, Total Volume: 250, Start date: 07/04/14 14:45:00, Duration: 1 doses or times, Stop date: 07/04/14 15:02:00 Sodium Chloride 500 mL, Rate: 999 Inactive [place] 0.9% IV 500 mL ml/hr, Infuse 2013 Medical over: 0.5 hr, Center Route: IV, Dosing Weight 83 kg, Total Volume: 500, Start date: 07/04/14 14:44:00, Duration: 1 doses or times, Stop date: 07/04/14 15:13:00 Benadryl 25 mg, 1 cap, Inactive [place] Route: PO, Drug 2013 Medical form: CAP, ONCE, Center Dosing Weight 83, kg, PRN Itching, Start date: 07/04/14 12:20:00, Stop date: 08/03/14 13:19:00Notes: (Same as: Benadryl) Ativan 1 mg, 0.5 mL, Inactive [place] Route: IV, Drug 2013 Medical form: INJ, Center ONCALL, Dosing Weight 83, kg, Start date: 07/04/14 4:00:00, Duration: 1 doses or times, Stop date: 07/05/14 0:00:00Notes: (Same as: Ativan) heparin, porcine 5,000 unit, 1 mL, No Longer [facility] Route: SUB-Q, Active 2013 Medical Drug form: INJ, Center Q8H, Dosing Weight 83, kg, Start date: 07/04/14 0:00:00, Duration: 30 day, Stop date: 08/02/14 16:00:00Notes: porcine heparin aspirin 325 mg 325 mg, 1 tab, No Longer [facility] tablet Route: PO, Drug Active 2013 Medical form: ECTAB, Center Daily, Dosing Weight 83, kg, Start date: 07/03/14 22:00:00, Duration: 30 day, Stop date: 08/01/14 22:00:00Notes: (Do Not Crush) Do not crush or chew. atorvastatin 20 mg, 1 tab, No Longer [facility] Route: PO, Drug Active 2013 Medical form: TAB, Center Bedtime, Dosing Weight 83, kg, Start date: 07/03/14 21:00:00, Stop date: 08/01/14 21:00:00Notes: (Same As: Lipitor) sennosides, ASSISTED 8.6 mg, 1 tab, No Longer [facility] Route: PO, Drug Active 2013 Medical Form: [...] Thiamine 100 mg, 1 tab, No Longer [facility] Route: PO, Drug Active 2013 Medical form: TAB, Daily, Center Dosing Weight 83, kg, Start date: 07/03/14 12:00:00, Duration: 30 day, Stop date: 08/02/14 9:00:00Notes: (Same As: Vitamin B1) 1 tab, Route: PO, No Longer [facility] Multivitamins Drug Form: TAB, Active 2013 Medical [...] BD Posiflush) pneumococcal 0.5 ml, Route: Inactive [facility] capsular IM, Drug Form: 2013 Medical polysaccharide INJ, Daily, Start Center type 1 vaccine / date: 07/03/14 pneumococcal 9:00:00, capsular Duration: 1 doses polysaccharide or times, Stop type 10A vaccine date: 07/03/14 / pneumococcal 9:00:00Notes: capsular (Same as: polysaccharide Pneumovax 23) type 11A vaccine Refrigerate / pneumococcal capsular polysaccharide type 12F vaccine / pneumococcal capsular polysacchar Influenza Virus 0.5 mL, Route: Inactive [facility] Vaccine, IM, Drug Form: 2013 Medical Inactivated SUSP, Daily, [place] [id number] Start date: 07 (H3N2)-like 07/03/14 9:00:00, virus Duration: 1 doses ([id number] or times, Stop 007 [facility] [id number]) date: 07/03/14 strain / 9:00:00Notes: Influenza Virus (Same as: Fluzone Vaccine, Quadrivalent) Inactivated [id number] 07, IVR-148 (H1N1) strain / Influenza Virus Vaccine, Inactivated, T-Pslitnn-7 -lik Docusate 100 mg, 1 cap, No Longer [facility] Route: PO, Drug Active 2013 Medical form: CAP, Q12H, Center Dosing Weight 83, kg, Start date: 07/03/14 9:00:00, Duration: 30 day, Stop date: 08/01/14 21:00:00Notes: (Same as: Colace) (Do Not Crush) Diltiazem 20 mg, 4 mL, Inactive [facility] Route: IVP, Drug 2013 Medical form: INJ, ONCE, Center Dosing Weight 83, kg, PRN Other -See Comment, Start date: 07/03/14 8:58:00Notes: (Same as: Cardizem) magnesium 2 gm, 50 mL, Inactive [facility] sulfate Route: IVPB, Drug 2013 Medical form: INJ, Q2H, Center Start date: 07/03/14 6:00:00, Duration: 2 doses or times, Stop date: 07/03/14 8:00:00 calcium 3,000 mg, 30 mL, Inactive [facility] gluconate + Route: IV, ONCE, 2013 Medical Sodium Chloride Start date: Center 0.9% IV 100 mL 07/03/14 6:00:00, Stop date: 07/03/14 6:00:00 Sodium Chloride 500 mL, 500 Inactive [facility] 0.154 MEQ/ML ml/hr, Infuse 2013 Medical Injectable Over: 1 hr, Center Solution Route: IV, 500, Drug form: INJ, ONCE, Priority: STAT, Dosing Weight 83 kg, Start date: 07/03/14 3:50:00, Duration: 1 doses or times, Stop date: 07/03/14 3:50:00 Omnipaque 300 50 ml, Route: Inactive [place] INTRAARTERIAL, 2013 Medical Dosing Weight Center [...] Acetaminophen 650 mg, 2 tab, No Longer [facility] Route: PO, Drug Active 2013 Medical form: TAB, Q4H, Center Dosing Weight 79.545, kg, PRN Pain 1-3/Temp > 99.5 F, Start date: 07/02/14 22:10:00, Duration: 30 day, Stop date: 08/01/14 22:09:00Notes: Do not exceed 4 gm/day. (Same as: Tylenol) Bisacodyl 10 mg, 1 supp, No Longer [facility] Route: IA, Drug Active 2013 Medical form: SUPP, Center [...] Labetalol 10 mg, 2 mL, No Longer [place] Route: IVP, Drug [...] Zofran 4 mg, 2 mL, No Longer [facility] Route: IVP, Drug Active 2013 Medical form: INJ, Q8H, Center Dosing Weight 79.545, kg, PRN as needed for nausea/vomiting, Priority: STAT, Start date: 07/02/14 21:57:00, Duration: 30 day, Stop date: 08/01/14 21:56:00Notes: (Same as: Zofran) Zofran 4 mg, Route: IVP, Inactive [facility] Drug form: INJ, 2013 Medical ONCE, Dosing Center Weight 79.545, kg, Priority: STAT, Start date: 07/02/14 21:54:00, Stop date: 07/02/14 21:54:00 iodixanol 125 mL, Route: Inactive [facility] IVP, Drug Form: 2013 Medical SOLN, Dosing Center Weight 79.545, kg, ONCALL, STAT, Start date: 07/02/14 21:53:00, Duration: 1 doses or times, Dose=2.2ml/kg, Max [id number] -- "To be infused by Radiology Staff ONLY"Special Instructions: Dose=2.2ml/kg, Max hasu=116qm -- "To be infused by Radiology Staff ONLY" aspirin 0 Refill(s) No Longer [facility] Active 2013 Medical Center Saline Flush 10 mL, Route: No Longer [facility] 0.9% IVP, Drug Form: Active 2013 Medical INJ, kg, PRN, PRN [place] Flush, Start date: 07/02/14 21:34:00, Duration: 30 day, Stop date: 08/01/14 20:33:00Notes: (Same as: BD Posiflush) Allergies, Adverse Reactions, Alerts Substance Category Reaction Severity Reaction Status Date Comments Source type Reported sulfa drugs Assertion Drug Active [facility] allergy Neuro Immunizations Immunization Date Given Site Status Last Comments Source Updated pneumococcal 07/04/2014 Left completed [facility] 23-valent vaccine deltoid Neuro,[facility] influenza virus 07/04/2014 Right completed [facility] vaccine, deltoid Neuro, inactivated [facility] Results Order Name Results Value Reference Date Interpretation Comments Source Range URINE AND Occult Bld Negative Negative 07/07 [facility] STOOL Stl (07/07/14 3:42 PM) [facility] ELECTROLYTE AGAP 14.5 10.0 - 07/07 [facility] S 20.0 [facility] ELECTROLYTE Potassium Lvl 4.5 3.5 - 5.1 07/07 [facility] ELECTROLYTE Sodium Lvl 142 135 - 145 07/07 [facility] ELECTROLYTE Calcium Lvl 8.6 8.5 - 10.5 07/07 [facility] ELECTROLYTE CO2 22 24 - 32 07/07 [facility] ELECTROLYTE Chloride Lvl 110 95 - 109 07/07 [facility] ELECTROLYTE eGFR 58 07/07 <sup>1</sup>R esult Medical [...] ELECTROLYTE Creatinine 1.0 0.5 - 1.4 07/07 [facility] S Lvl [facility] ELECTROLYTE BUN 23 7 - 22 07/07 [facility] ELECTROLYTE Glucose Lvl 97 70 - 99 07/07 <sup>4</sup>I nterpretive Medical Data: Adult Center reference range values reflect the clinical guidelines
of the [place] [employer]. HEMATOLOGY PT 12.7 12.0 - 07/07 [place] 14.7 [facility] HEMATOLOGY INR 0.95 0.85 - 07/07 <sup>10</sup> [facility] 1.17 Interpretive Medical Data: Center RECOMMENDED RANGES FOR PROTIME INR:
2.0-3.0 for most medical and surgical thromboemboli c states.
2.5-3.5 for artificial heart valves and recurrent embolism.<br/ >
INR SHOULD BE USED ONLY FOR PATIENTS ON STABLE ANTICOAGULANT THERAPY. HEMATOLOGY RDW 13.8 11.5 - 07/07 14.5 [facility] HEMATOLOGY RBC 3.59 4.20 - 07/07 [place] 5.40 /2013 [facility] HEMATOLOGY WBC 12.1 3.7 - 10.4 07/07 [facility] HEMATOLOGY Hgb 11.5 12.0 - 07/07 16.0 [facility] HEMATOLOGY Hct 36.0 36.0 - 07/07 48.0 [facility] HEMATOLOGY MCV 100.3 80.0 - 07/07 [facility] 98.0 /2013 [facility] HEMATOLOGY MCH 32.0 27.0 - 07/07 31.0 [facility] HEMATOLOGY MCHC 31.9 32.0 - 07/07 [place] 36.0 /2013 [facility] HEMATOLOGY MPV 11.4 7.4 - 10.4 07/07 [facility] HEMATOLOGY Platelet 175 133 - 450 07/07 [facility] HEMATOLOGY Monocytes 14.9 2.0 - 12.0 07/07 [facility] HEMATOLOGY Eosinophils 3.5 0.0 - 4.0 07/07 [facility] HEMATOLOGY Basophils 0.4 0.0 - 1.0 07/07 [facility] HEMATOLOGY Lymphocytes # 3.9 1.0 - 5.5 07/07 [facility] HEMATOLOGY Monocytes # 1.8 0.0 - 0.8 07/07 [facility] HEMATOLOGY Segs-Bands # 5.9 1.5 - 8.1 07/07 [facility] HEMATOLOGY Eosinophils # 0.4 0.0 - 0.5 07/07 [facility] HEMATOLOGY Macrocyte 1+ None Seen 07/07 [facility] *ABN* /2013 Medical (07/07/14 1:00 AM) [place] HEMATOLOGY Lymphocytes 32.6 20.0 - 07/07 [place] 40.0 /2013 [facility] HEMATOLOGY Segs 48.6 45.0 - 07/07 [facility] 75.0 [facility] HEMATOLOGY PT 13.9 12.0 - 07/07 [facility] 14.7 [facility] HEMATOLOGY INR 1.07 0.85 - 07/07 <sup>11</sup> [facility] 1.17 Interpretive Medical Data: Center RECOMMENDED RANGES FOR PROTIME INR:
2.0-3.0 for most medical and surgical thromboemboli c states.
2.5-3.5 for artificial heart valves and recurrent embolism.<br/ >
INR SHOULD BE USED ONLY FOR PATIENTS ON STABLE ANTICOAGULANT THERAPY. HEMATOLOGY PTT 35.0 22.9 - 07/07 <sup>13</sup> [facility] 35.8 Interpretive Medical Data: [facility] Therapeutic Range: 57 - 92 Seconds ANEMIA Folate Lvl 14.3 >=3.0 07/06 [facility] ng/mL [facility] ANEMIA Vitamin B12 908 254 - 1320 07/06 [facility] Lvl [facility] ANEMIA UIBC 245 110 - 370 07/06 [facility] ANEMIA % [place] 18 12 - 57 07/06 [facility] ANEMIA Iron 52 30 - 160 07/06 [facility] ANEMIA TIBC 297 228 - 428 07/06 [facility] ANEMIA Transferrin 227 212 - 360 07/06 [facility] HEMATOLOGY Monocytes 15.2 2.0 - 12.0 07/06 [facility] HEMATOLOGY Eosinophils # 0.3 0.0 - 0.5 07/06 [facility] HEMATOLOGY Monocytes # 1.6 0.0 - 0.8 07/06 [facility] HEMATOLOGY Basophils 0.4 0.0 - 1.0 07/06 [facility] HEMATOLOGY Eosinophils 3.2 0.0 - 4.0 07/06 [facility] HEMATOLOGY Lymphocytes # 3.4 1.0 - 5.5 07/06 [facility] HEMATOLOGY Segs-Bands # 5.3 1.5 - 8.1 07/06 [facility] HEMATOLOGY Segs 49.6 45.0 - 07/06 [facility] 75.0 [facility] HEMATOLOGY Plt Morph Normal 07/06 [facility] (07/06/14 2:30 AM) [facility] HEMATOLOGY Lymphocytes 31.6 20.0 - 07/06 [place] 40.0 [facility] HEMATOLOGY RBC Morph Normal 07/06 [facility] (07/06/14 2:30 AM) [facility] HEMATOLOGY WBC 10.6 3.7 - 10.4 07/06 [facility] HEMATOLOGY MCV 97.8 80.0 - 07/06 [place] 98.0 /2013 [facility] HEMATOLOGY Hct 37.0 36.0 - 07/06 [place] 48.0 [facility] HEMATOLOGY Hgb 12.1 12.0 - 07/06 [place] 16.0 [facility] HEMATOLOGY RBC 3.78 4.20 - 07/06 [place] 5. [facility] HEMATOLOGY MCHC 32.8 32.0 - 07/06 [place] 36.0 [facility] HEMATOLOGY MCH 32.1 27.0 - 07/06 [place] 31.0 [facility] HEMATOLOGY RDW 13.9 11.5 - 07/06 [place] 14. [facility] HEMATOLOGY MPV 12.2 7.4 - 10.4 07/06 [facility] HEMATOLOGY Platelet 167 133 - 450 07/06 [facility] CARDIAC Troponin-T <0.010 0.000 - 07/05 [facility] ENZYMES 0.100 [facility] CARDIAC Total CK 123 12 - 191 07/05 [facility] CARDIAC Troponin-I 0.02 0.00 - 07/05 [place] ENZYMES 0. [facility] CARDIAC CK MB Index 1.0 0.0 - 2.5 07/05 [place] ENZYMES [facility] CARDIAC CK MB 1.2 0.5 - 3.6 07/05 [facility] HEMATOLOGY Basophils 0.7 0.0 - 1.0 07/05 [facility] HEMATOLOGY Eosinophils 2.4 0.0 - 4.0 07/05 [facility] HEMATOLOGY Segs-Bands # 5.3 1.5 - 8.1 07/05 [facility] HEMATOLOGY Lymphocytes # 2.1 1.0 - 5.5 07/05 [facility] HEMATOLOGY Monocytes # 1.4 0.0 - 0.8 07/05 [facility] HEMATOLOGY Eosinophils # 0.2 0.0 - 0.5 07/05 [facility] HEMATOLOGY Basophils # 0.1 0.0 - 0.2 07/05 [facility] HEMATOLOGY Segs 58.2 45.0 - 07/05 [place] 75.0 [facility] HEMATOLOGY Monocytes 15.5 2.0 - 12.0 07/05 [facility] HEMATOLOGY Lymphocytes 23.2 20.0 - 07/05 [place] 40.0 [facility] HEMATOLOGY MCHC 33.0 32.0 - 07/05 [place] 36.0 [facility] HEMATOLOGY RDW 14.0 11.5 - 07/05 [place] 14. [facility] HEMATOLOGY WBC 9.1 3.7 - 10.4 07/05 [facility] HEMATOLOGY RBC 3.13 4.20 - 07/05 [place] 5.40 [facility] HEMATOLOGY Hgb 10.1 12.0 - 07/05 [place] 16.0 [facility] HEMATOLOGY Platelet 142 133 - 450 07/05 [facility] HEMATOLOGY MPV 12.1 7.4 - 10.4 07/05 [facility] HEMATOLOGY Hct 30.7 36.0 - 07/05 [place] 48.0 [facility] HEMATOLOGY MCH 32.3 27.0 - 07/05 [place] 31.0 [facility] HEMATOLOGY MCV 98.0 80.0 - 07/05 [place] 98.0 [facility] HEMATOLOGY Basophils # 0.1 0.0 - 0.2 07/05 [facility] CHEM PANEL Magnesium Lvl 1.6 1.8 - 2.4 07/05 [facility] CHEM PANEL Phosphorus 3.7 2.5 - 4.5 07/05 [facility] CHEM PANEL eGFR 76 07/05 <sup>2</sup>R esult [...] PANEL CO2 25 24 - 32 07/05 [facility] CHEM PANEL Calcium Lvl 8.3 8.5 - 10.5 07/05 [facility] CHEM PANEL Sodium Lvl 145 135 - 145 07/05 [facility] CHEM PANEL BUN 15 7 - 22 07/05 [facility] CHEM PANEL Creatinine 0.8 0.5 - 1.4 07/05 [facility] CHEM PANEL Chloride Lvl 112 95 - 109 07/05 [facility] CHEM PANEL Potassium Lvl 4.5 3.5 - 5.1 07/05 [facility] CHEM PANEL Glucose Lvl 89 70 - 99 07/05 <sup>5</sup>I nterpretive Medical Data: Adult Center reference range values reflect the clinical guidelines
of the [employer]. CHEM PANEL AGAP 12.5 10.0 - 07/05 [facility] 20.0 [facility] DRUG SCREEN U Phencyc Scr Negative Negative 07/05 [facility] *NA* [facility] (07/04/14 7:50 PM) Center DRUG SCREEN UDS Note See Note 8 07/05 <sup>8</sup>I [facility] (07/04/14 7:50 PM) nterpretive Medical Data: Drugs Center reported as positive have not been confirmed by a second
ky thod and should be used for medical [...] DRUG SCREEN U Benzodia Positive Negative 07/05 [facility] *ABN* Medical (07/04/14 7:50 PM) Center DRUG SCREEN U Cannab Scr Negative Negative 07/05 [facility] *NA* Medical (07/04/14 7:50 PM) Center DRUG SCREEN U Cocaine Scr Negative Negative 07/05 [facility] *NA* Medical (07/04/14 7:50 PM) Center DRUG SCREEN U Opiate Scr Negative Negative 07/05 [place] *NA* Medical (07/04/14 7:50 PM) Center DRUG SCREEN U Amph Scr Negative Negative 07/05 [facility] *NA* [facility] (07/04/14 7:50 PM) Center URINE AND UA <=1.0 0.1 - 1.0 07/05 [facility] STOOL Urobilinogen mg/dL [facility] URINE AND UA RBC 1 0 - 2 07/05 [facility] [place] [facility] URINE AND UA Mucus Few /LPF None Seen 07/05 [facility] STOOL /LPF [facility] URINE AND UA Hyal Cast 1 0 - 2 07/05 [facility] URINE AND UA WBC 9 0 - 5 07/05 [facility] URINE AND UA Glucose Negative Negative 07/05 [facility] STOOL mg/dL mg/dL [facility] URINE AND UA Ketones Negative Negative 07/05 [facility] STOOL mg/dL mg/dL [facility] URINE AND UA pH 5.0 5.0 - 8.0 07/05 [facility] STOOL Medical [place] URINE AND UA Protein Negative Negative 07/05 [facility] mg/dL mg/dL [facility] URINE AND UA Spec Grav 1.010 <=1.030 07/05 [facility] URINE AND UA Leuk Est Moderate Negative 07/05 [facility] *ABN* [facility] (07/04/14 7:50 PM) [place] URINE AND UA Sq Epi Few /LPF Few /LPF 07/05 [facility] URINE AND UA Bili Negative Negative 07/05 [facility] *NA* [facility] (07/04/14 7:50 PM) [place] URINE AND UA Blood Negative Negative 07/05 [facility] (07/04/14 7:50 PM) [facility] URINE AND UA Nitrite Negative Negative 07/05 [facility] (07/04/14 7:50 PM) [facility] URINE AND UA Color Yellow Yellow 07/05 [facility] *NA* [facility] (07/04/14 7:50 PM) [place] URINE AND UA Turbidity Clear Clear 07/05 [facility] (07/04/14 7:50 PM) [facility] CHEM PANEL Lactic Acid 1.0 0.5 - 2.2 07/04 [facility] CHEM PANEL Globulin 2.5 2.0 - 4.0 07/04 [facility] CHEM PANEL A/G Ratio 1.3 0.7 - 1.6 07/04 [facility] CHEM PANEL Bili Indirect 0.3 0.0 - 1.0 07/04 [facility] CHEM PANEL Total Protein 5.7 6.4 - 8.4 07/04 [facility] CHEM PANEL Alk Phos 61 39 - 136 07/04 [facility] CHEM PANEL Albumin Lvl 3.2 3.5 - 5.0 07/04 [facility] CHEM PANEL ALT 21 0 - 65 07/04 [facility] CHEM PANEL AST 16 0 - 37 07/04 [facility] CHEM PANEL Bili Direct 0.1 0.0 - 0.3 07/04 [facility] CHEM PANEL Bili Total 0.4 0.2 - 1.3 07/04 [facility] CHEM PANEL Phosphorus 3.3 2.5 - 4.5 07/04 [facility] CHEM PANEL Magnesium Lvl 1.8 1.8 - 2.4 07/04 [facility] CHEM PANEL eGFR 66 07/04 <sup>3</sup>R esult Medical Comment: The Center eGFR is [...] CHEM PANEL AGAP 11.5 10.0 - 07/04 . [facility] CHEM PANEL Calcium Lvl 8.3 8.5 - 10.5 07/04 [facility] CHEM PANEL Sodium Lvl 144 135 - 145 07/04 [facility] CHEM PANEL Potassium Lvl 4.5 3.5 - 5.1 07/04 [facility] CHEM PANEL Chloride Lvl 113 95 - 109 07/04 [facility] CHEM PANEL CO2 24 24 - 32 07/04 [facility] CHEM PANEL Glucose Lvl 107 70 - 99 07/04 <sup>6</sup>I nterpretive Medical Data: Adult Center reference range values reflect the clinical guidelines
of the [employer]. CHEM PANEL BUN 12 7 - 22 07/04 [facility] CHEM PANEL Creatinine 0.9 0.5 - 1.4 07/04 [facility] HEMATOLOGY INR 1.14 0.85 - 07/04 <sup>12</sup> [facility] 09.23 Interpretive Medical Data: Center RECOMMENDED RANGES FOR PROTIME INR:
2.0-3.0 for most medical and surgical thromboemboli c states.
2.5-3.5 for artificial heart valves and recurrent embolism.<br/ >
INR SHOULD BE USED ONLY FOR PATIENTS ON STABLE ANTICOAGULANT THERAPY. HEMATOLOGY PTT 26.0 22.9 - 07/04 <sup>14</sup> [facility] 35.8 /2013 Interpretive Medical Data: Heparin Center Therapeutic Range: 57 - 92 Seconds HEMATOLOGY PT 14.7 12.0 - 07/04 [facility] 14. [facility] PARATHYROID Ca Norm WB 1.06 1.05 - 07/04 [facility] PROFILE 10.01 [facility] PARATHYROID Ca Ion WB 1.06 1.05 - 07/04 [facility] 10.01 [facility] DRUG SCREEN UDS Note See Note 9 07/03 <sup>9</sup>I [facility] *NA* /2013 nterpretive Medical (07/03/14 10:50 AM) Data: Drugs Center reported as positive have not been confirmed by a second
ky thod and should be used for medical [...] SCREEN U Opiate Scr Negative Negative 07/03 [place] *NA* Medical (07/03/14 10:50 AM) Center DRUG SCREEN U Phencyc Scr Negative Negative 07/03 [place] *NA* Medical (07/03/14 10:50 AM) Center DRUG SCREEN U Cocaine Scr Negative Negative 07/03 [place] *NA* Medical [...] LIPIDS CHD Risk 1.95 3.90 - 07/03 [facility] 5.80 [facility] LIPIDS VLDL 8 07/03 [facility] LIPIDS LDL 72 <=99 mg/dL 07/03 [facility] (Calculated) [facility] LIPIDS Trig 42 <=149 07/03 [facility] mg/dL [facility] LIPIDS Chol 164 <=199 07/03 [facility] mg/dL [facility] LIPIDS HDL 84 >=61 mg/dL 07/03 <sup>7</sup>R esult Medical Comment: Center Specimen Slightly Hemolyzed. SPECIAL Hgb A1C 4.9 <=5.6 % 07/03 [facility] CHEMISTRY [facility] URINE AND UA <=1.0 0.1 - 1.0 07/03 [facility] STOOL Urobilinogen mg/dL [facility] URINE AND UA Bacteria Occasional None Seen 07/03 [facility] STOOL /HPF /HPF /2013 [facility] URINE AND UA Mucus Few /LPF None Seen 07/03 [facility] STOOL /LPF [facility] URINE AND UA Amorph Occasional None Seen 07/03 [facility] STOOL Christin /HPF /HPF [facility] URINE AND UA Sq Epi Occasional Few /LPF 07/03 [facility] STOOL /LPF /2013 [facility] URINE AND UA WBC 4 0 - 5 07/03 [facility] URINE AND UA Nitrite Negative Negative 07/03 [facility] STOOL (07/03/14 10:50 AM) [facility] URINE AND UA Blood Negative Negative 07/03 [facility] STOOL (07/03/14 10:50 AM) [facility] URINE AND UA Ketones Negative Negative 07/03 [facility] mg/dL mg/dL [facility] URINE AND UA RBC 2 0 - 2 07/03 [facility] URINE AND UA Leuk Est Negative Negative 07/03 [facility] STOOL (07/03/14 10:50 AM) [facility] URINE AND UA Color Light Yellow Yellow 07/03 [facility] STOOL *NA* /2013 [facility] (07/03/14 10:50 AM) [place] URINE AND UA pH 5.0 5.0 - 8.0 07/03 [facility] URINE AND UA Bili Negative Negative 07/03 [facility] *NA* /2013 [facility] (07/03/14 10:50 AM) [place] URINE AND UA Glucose Negative Negative 07/03 [facility] mg/dL mg/dL [facility] URINE AND UA Turbidity Slight Clear 07/03 [facility] *ABN* [facility] (07/03/14 10:50 AM) [place] URINE AND UA Spec Grav 1.007 <=1.030 07/03 [facility] URINE AND UA Protein Negative Negative 07/03 [facility] mg/dL mg/dL [facility] BACTERIAL - MRSA by PCR Negative 16 07/03 <sup>16</sup> [facility] (07/03/14 3:11 AM) Interpretive Medical Data: Center [...] Molecular Diagnostic Laboratory within the [facility]. The Molecular Diagnostic Laboratory is authorized under the Clinical Laboratory Improvement Amendment of 1988 (CLIA-88) to perform high complexity testing. CARDIAC Troponin-I <0.02 0.00 - 07/03 [facility] ENZYMES 0.40 [facility] CARDIAC Total CK 51 12 - 191 07/03 ENZYMES [facility] CHEM PANEL Phosphorus 2.8 2.5 - 4.5 07/03 [facility] CHEM PANEL Magnesium Lvl 1.7 1.8 - 2.4 07/03 [facility] CHEM PANEL Total Protein 5.6 6.4 - 8.4 07/03 [facility] CHEM PANEL Albumin Lvl 3.0 3.5 - 5.0 07/03 [facility] CHEM PANEL Globulin 2.6 2.0 - 4.0 07/03 [facility] CHEM PANEL A/G Ratio 1.2 0.7 - 1.6 07/03 [facility] CHEM PANEL ALT 26 0 - 65 07/03 [facility] CHEM PANEL Alk Phos 66 39 - 136 07/03 [facility] CHEM PANEL AST 18 0 - 37 07/03 [facility] CHEM PANEL Bili Indirect 0.1 0.0 - 1.0 07/03 [facility] CHEM PANEL Bili Total 0.2 0.2 - 1.3 07/03 [facility] CHEM PANEL Bili Direct 0.1 0.0 - 0.3 07/03 [facility] HEMATOLOGY PTT 28.0 22.9 - 07/03 <sup>15</sup> [place] 35.8 /2014 Interpretive Medical Data: Heparin Center Therapeutic Range: 57 - 92 Seconds PARATHYROID Ca Norm WB 1.01 1.05 - 07/03 [facility] PROFILE 1.25 [facility] PARATHYROID Ca Ion WB 1.04 1.05 - 07/03 [place] PROFILE 1. [facility] CARDIAC Troponin-T 0.031 0.000 - 07/03 [facility] ENZYMES 0.100 /2013 [facility] BLOOD BANK Antibody Scrn Negative 07/03 [facility] RESULTS (07/02/14 11:20 PM) [facility] BLOOD BANK ABO/Rh O POS 07/03 [facility] RESULTS [facility] CARDIAC Troponin-I <0.02 0.00 - 07/03 [facility] ENZYMES 0.40 [facility] CARDIAC Total CK 59 12 - 191 07/03 [facility] ENZYMES [facility] CARDIAC CK MB 0.7 0.5 - 3.6 07/03 [facility] ENZYMES [facility] CARDIAC CK MB Index 1.2 0.0 - 2.5 07/03 [facility] ENZYMES [facility] HEMATOLOGY Basophils # 0.0 0.0 - 0.2 07/03 [facility] HEMATOLOGY RBC Morph Normal 07/03 [facility] (07/02/14 10:15 PM) [facility] HEMATOLOGY Plt Morph Normal 07/03 [facility] (07/02/14 10:15 PM) [facility] CHEM PANEL POC 1.2 0.5 - 1.4 07/03 [facility] Creatinine [facility] Pathology Reports No Data Provided for This Section Diagnostic Reports No Data Provided for This Section Consultation Notes No Data Provided for This Section Discharge Summaries No Data Provided for This Section History and Physicals No Data Provided for This Section Vital Signs Vital Sign Value Date Comments Source Heart Rate 87 03/08/2019 [facility] Neuro Respitory Rate 16 03/08/2019 [facility] Neuro Systolic (mm Hg) 119 03/08/2019 [facility] Neuro Diastolic (mm Hg) 77 03/08/2019 [facility] Height 162.56 cm 07/20/2018 [facility] Neuro BMI Calculated 25.8 07/20/2018 [facility] Neuro Weight 68.182 07/20/2018 [facility] Neuro Heart Rate 71 07/20/2018 [facility] Neuro Respitory Rate 16 07/20/2018 [facility] Neuro Systolic (mm Hg) 124 07/20/2018 [facility] Neuro Diastolic (mm Hg) 82 07/20/2018 [facility] Neuro Systolic (mm Hg) 147 07/08/2014 [facility] Respitory Rate 35 07/08/2014 [facility] Diastolic (mm Hg) 74 07/08/2014 [facility] Respitory Rate 22 07/07/2014 [facility] Diastolic (mm Hg) 68 07/07/2014 [facility] Respitory Rate 20 07/07/2014 [facility] Systolic (mm Hg) 126 07/07/2014 [facility] Diastolic (mm Hg) 75 07/07/2014 [facility] Systolic (mm Hg) 118 07/07/2014 [facility] Heart Rate 69 07/04/2014 [facility] Heart Rate 72 07/04/2014 [facility] Heart Rate 67 07/04/2014 [facility] Height 162.56 cm 07/03/2014 [facility] Weight 83 07/03/2014 [facility] BMI Calculated 31.41 07/03/2014 [facility] Height 162.56 cm 07/03/2014 [facility] Weight 83 07/03/2014 [facility] BMI Calculated 31.41 07/03/2014 [facility] Temperature Oral (F) 97.0 F 07/03/2014 [facility] Temperature Oral (F) 97.9 F 07/03/2014 [facility] BMI Calculated 30.1 07/03/2014 [facility] Weight 79.545 07/03/2014 [facility] Height 162.56 cm 07/03/2014 [facility] Encounters Location Location Encounter Encounter Reason Attending ADM DC Status Source Details Type Number For Provider Date Date Visit [facility] [id number] Korin 07/03 07/08 [facility] Outpatient [id number] SONIA 12/15 [facility] [place] Outpatient [id number] SONIA 03/16 [facility] [place] Outpatient [id number] SONIA 07/20 [facility] [place] [facility] Outpatient [id number] Sonia 07/20 07/21 [facility] Neurology [facility] [place] Outpatient [id number] SONIA 11/09 [facility] [place] Outpatient [id number] Sonia 03/08 [facility] [place] [facility] Outpatient [id number] Sonia 03/08 03/09 [facility] Neurology [facility] [place] Outpatient [id number] Sonia 09/13 [facility] [place] Procedures Procedure Code Date Perfomer Comments Source Splenectomy [id number] [facility] Assessment and Plan Assessment and Plan Date Source Extracted from:Title: Progress Note * 07/08/2014 [facility] Author: Yousif Arrieta MD Date: 07/07/14 Impression [...] sub q. DISPO: [place] in patient rehab [facility] hospitalist is consult. Pager [phone] Extracted from:Title: Clinical Document Author: Nidhi Muñiz Andrew DO Date: 07/05/14 Neurorehabilitation Consult Requesting Physician: Dr. Guzmán Consulting Physician: Dr. Muñiz Reason: Evaluate for acute inpatient rehab program Chief Complaint: fall, headache, word salad 68 yo LH F grocery shopping, fell backwards, caught by bystanders, did not hit head or lose consciousness, brought her home. 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 3. Acute right POLE PEELER territory infarct. 4. 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 RECOMMEND: Neurorehabilitation PT/OT/ST. cleared for regular diet with thin liquids. Medical R MCA/POLE PEELER/R cerebellar hemisphere infarct s/p iv tpa and [...] Admission: 07/02/14 Requesting Physician/Service: Life flight CC: MANAGER SHIP LFD dysarthria HISTORY OF PRESENT ILLNESS: 48F [...] dysarthric, comprehension intact, repetition and naming intact scientific informatics leader: pupils 3mm equal and briskly reactive, left [...] 2-neither 0 1c. LOC Commands open/close eyes, associate professor of psychology/release non-paretic hand; 0-both 1- one 2-neither 1 [...] HbA1c. Treat fevers and blood sugars aggressively. PT/OT/FLOOR ASSOCIATE consults - rehab assessments have been ordered. NPO prior to bedside swallow assessment; and escalation of care as determined by nurse DVT prophylaxis with SCDs. 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 Dominguez, the fellow educational therapist. Klaus Holly MD PGY2 Neurology Resident MSO [phone] Pager [phone] Addendum by Brissa Dominguez MD on 07/03/2014 02:05 Stroke Fellow Addendum Please refer to the resident physician's note above for full details. I have discussed the case with the educational therapist resident and agree with their assessment with [...] headache. Head CT s howed old R POLE PEELER territory and R cerebellar infarcts though she [...] ___1-one ___2-neither 1c. LOC Commands open/close eyes, associate professor of psychology/release non-paretic hand; __X_0-both ___ 1-one ___2-neither 2. [...] likely cardioemoblic. She has a prior R POLE PEELER and R cerebellar infarct however the y radiographically appear older than just 4 days ago but if this event 4 days ago does represent a recent stroke, she would be at increased risk for hemorragic conversion. [] repeat head CT @ 6am to look monitor for hemorrhagic conversion - Post tPA vital signs and neurochecks per protocol - Goal [id number] - HOB flat, NS 125cc/hr, aggressive blood [...] Reg Smoking Cessation Counseling No entered on: 03/08/19 Social History TypeResponse 07/03/2014 [facility] Substance Abuse Use: None Alcohol Use: Current, [...]
--- OUTSIDE RECORDS SUMMARY | 2019-04-23 08:03 | XMS REPORT | Summary of Care ---
:1945 Author Organization [facility] Neurology [place] Address [address] [place] [address]- Encounter HQ Manda(TATY) [id number] Date(s): 03/08/19 - 03/08/19 [facility] [address] [place] [address]- [phone] Discharge Disposition: Home or Self Care Attending Physician: Tad Velasquez MD Referring Physician: Tad Velasquez MD Vital Signs Most recent to oldest [Reference Range]: 1 Blood Pressure [90-140/60-90 mmHg] 119/77 mmHg (03/08/19 2:24 PM) Respiratory Rate [14-20 BRMIN] 16 BRMIN (03/08/19 2:24 PM) Peripheral Pulse Rate [60-100 bpm] 87 bpm (03/08/19 2:24 PM) Problem List Condition Effective Dates Status Health Status Informant Atrial fibrillation(Confirmed) Active DVT (deep venous Resolved thrombosis)(Confirmed) Parkinson disease(Confirmed) Active Allergies, Adverse Reactions, Alerts Substance Reaction Severity Status sulfa drugs Active Medications carbidopa-levodopa 25 mg-100 mg oral tablet 1 tab, PO, TID, # 90 tab, 4 Refill(s), Pharmacy: [facility] [address] [id number] Start Date: 03/08/19 Stop Date: 08/05/19 Status: Ordered Results No data available for [...] Smoking Cessation Counseling No entered on: 03/08/19 Assessment and Plan No data available for this section
--- OUTSIDE RECORDS SUMMARY | 2019-04-23 08:03 | XMS REPORT ---
[...] Start End Date Status Dosage Date Carbidopa-Levod [facility] 47037-06 Active not defined opa 12-07 Xarelto [facility] 64096-71 Active not defined 77-10 [place] [address]-73 Active not defined 81-02 Tylenol # 3 NDC 0 300/30mg PO Q Nov 03, Active one tab 4-6 HRS PRN PAIN 2018 Tylenol # 3 NDC 0 Active not defined Results No Known Results Summary Purpose eClinicalWorks Submission
--- OUTSIDE RECORDS SUMMARY | 2019-04-23 08:03 | XMS REPORT ---
[...] End Status Dosage System Date Date Xarelto [facility] [address]-64 Active not defined Omeprazole [facility] [id number] Active not defined Tylenol # 3 NDC 0 300/30mg PO Q Nov 03, Active one tab 4-6 HRS PRN 2019 PAIN Carbidopa-Levo [facility] [address]-41 Active not dopa defined Results No Known Results Summary Purpose eClinicalWorks Submission
--- OUTSIDE RECORDS SUMMARY | 2019-04-23 08:03 | XMS REPORT ---
[...] End Status Dosage System Date Date Carbidopa-Levo [facility] [address]-92 Active not dopa defined Xarelto [facility] [address]-32 Active not defined Tylenol # 3 NDC 0 Active not defined Omeprazole [facility] [id number] Active not defined Tylenol # 3 NDC 0 300/30mg PO Q Nov 03, Active one tab 4-6 HRS PRN 2019 PAIN Results No Known Results Summary Purpose eClinicalWorks Submission
--- OUTSIDE RECORDS SUMMARY | 2019-04-23 08:03 | XMS REPORT ---
[...] Start End Date Status Dosage Date Omeprazole [facility] 64508-56 Active not defined 81-02 Tylenol # 3 NDC 0 Active not defined Xarelto [facility] 37794-21 Active not defined 77-10 Carbidopa-Levod [facility] 69207-65 Active not defined opa 12-07 Tylenol # 3 NDC 0 300/30mg PO Q Nov 03, Active one tab 4-6 HRS PRN PAIN 2019 Results No Known Results Summary Purpose eClinicalWorks Submission
--- OUTSIDE RECORDS SUMMARY | 2019-04-23 08:03 | XMS REPORT ---
:1945 Author Organization eClinicalWorks Care Team Providers Name Role Phone [place] oD Provider Role Unavailable Allergies, Adverse Reactions, Alerts [...] End Status Dosage System Date Date Carbidopa-Levo [facility] [address]-37 Active not dopa defined Tylenol # 3 NDC 0 Active not defined Omeprazole [facility] [id number] Active not defined Xarelto [facility] [address]-51 Active not defined Tylenol # 3 NDC 0 300/30mg PO Q Nov 03, Active one tab 4-6 HRS PRN 2019 PAIN Results No Known Results Summary Purpose eClinicalWorks Submission
--- OUTSIDE RECORDS SUMMARY | 2019-04-23 08:03 | XMS REPORT ---
[...] End Date Status Dosage System Date Omeprazole [facility] [id number] Active not defined Xarelto [facility] [address]-33 Active not defined Tylenol # 3 NDC 0 300/30mg PO Q Nov 03, Active one tab 4-6 HRS PRN 2018 PAIN Tylenol # 3 NDC 0 Active not defined Carbidopa-Levo [facility] [address]-45 Active not dopa defined Amoxicillin [facility] 50562082422 875 MG Orally December Active 1 tablet every 12 hrs 2018 Amoxicillin [facility] 95731067465 875 MG Orally December Active 1 tablet TID 2018 Results No Known Results Summary Purpose eClinicalWorks Submission
--- OUTSIDE RECORDS SUMMARY | 2019-04-23 08:03 | XMS REPORT ---
[...] End Date Status Dosage System Date Carbidopa-Levo [facility] [address]-14 Active not dopa defined Amoxicillin [facility] 72377164819 875 MG Orally December Active 1 tablet TID 2018 Xarelto [facility] [address]-77 Active not defined Omeprazole [facility] 99835568545 Active not defined Tylenol # 3 NDC 0 300/30mg PO Q Nov 03, Active one tab 4-6 HRS PRN 2018 PAIN Results No Known Results Summary Purpose [employer] Submission
--- OUTSIDE RECORDS SUMMARY | 2019-04-23 08:03 | XMS REPORT ---
[...] Medications Results No Known Results Summary Purpose [employer] Submission
--- OUTSIDE RECORDS SUMMARY | 2019-04-23 08:03 | XMS REPORT ---
[...] Medications Results No Known Results Summary Purpose [employer] Submission
--- OUTSIDE RECORDS SUMMARY | 2019-04-23 08:03 | XMS REPORT ---
[...] tab 4-6 HRS PRN 2018 PAIN Xarelto [facility] [address]-16 Active not defined Amoxicillin [facility] 09686679829 875 MG Orally 1 DecemberJanuary 10, Active 1 tablet po BID 2018 Carbidopa-Levod [facility] [address]-96 Active not opa defined Omeprazole [facility] 98871311500 Active not defined Results No Known Results Summary Purpose eClinicalWorks Submission
[2019-04-23] MEDS ORDERED: FAMOTIDINE 20 MG TAB ONE (08:40)
[2019-04-23] MEDS ORDERED: DOXYCYCLINE 100 MG CAP PO ONE (08:40)
--- NOTE | 2019-04-23 08:56 | EDPHYS ---
Physician Documentation [facility] Name: Ning Coffey Age: 73 yrs Sex: Female : 1945 Arrival Date: 04/23/2019 Time: 08:00 Bed 14 Private MD: Alannah Pimentel H ED Physician Tio Tello HPI: 04/23 10:22 This 73 yrs old Female presents to ER via Ambulatory with complaints of Skin snw Sore(s). 10:22 The patient or guardian complains of a rash, draining, erythematous, vesicular. The snw complaints affect the dorsal aspect of left forearm. Context: The problem was sustained at home, resulted from unknown cause. Onset: The symptoms/episode began/occurred suddenly, 4 day(s) ago, and became persistent. Treatment prior to arrival includes: Bactroban cream. Associated signs and symptoms: Pertinent positives: erythema, warmth, itching/burning tenderness. Severity of symptoms: At their worst the symptoms were moderate, severe. The patient has experienced similar episodes in the past, several times. It is unknown whether or not the patient has recently seen a physician. Historical: - Allergies: 08:07 Sulfa (Sulfonamide Antibiotics); hb 09:11 Levaquin; hb - PMHx: 08:07 CVA; Parkinsons; hb - PSHx: 08:07 Hysterectomy; splenectomy; Tonsillectomy; hb - Immunization history:: Adult Immunizations up to date. - Social history:: Smoking status: Patient/guardian denies using tobacco. - Ebola Screening: : Patient denies exposure to infectious person Patient denies travel to an Ebola-affected area in the 21 days before illness onset. ROS: 10:21 Constitutional: Negative for fever, chills, and weight loss, Eyes: Negative for injury, snw pain, redness, and discharge, ENT: Negative for injury, pain, and discharge, Neck: Negative for injury, pain, and swelling, Cardiovascular: Negative for chest pain, palpitations, and edema, Respiratory: Negative for shortness of breath, cough, wheezing, and pleuritic chest pain, Abdomen/GI: Negative for abdominal pain, nausea, vomiting, diarrhea, and constipation, Back: Negative for injury and pain, : Negative for injury, bleeding, discharge, and swelling, MS/Extremity: Negative for injury and deformity, Neuro: Negative for headache, weakness, numbness, tingling, and seizure. 10:21 Skin: Positive for rash, of the dorsal aspect of left forearm. Exam: 10:20 Constitutional: This is a well developed, well nourished patient who is awake, alert, snw and in no acute distress. Head/Face: Normocephalic, atraumatic. Eyes: Pupils equal round and reactive to light, extra-ocular motions intact. Lids and lashes normal. Conjunctiva and sclera are non-icteric and not injected. Cornea within normal limits. Periorbital areas with no swelling, redness, or edema. ENT: Nares patent. No nasal discharge, no septal abnormalities noted. Tympanic membranes are normal and external auditory canals are clear. Oropharynx with no redness, swelling, or masses, exudates, or evidence of obstruction, uvula midline. Mucous membranes moist. Neck: Trachea midline, no thyromegaly or masses palpated, and no cervical lymphadenopathy. Supple, full range of motion without nuchal rigidity, or vertebral point tenderness. No Meningismus. Chest/axilla: Normal chest wall appearance and motion. Nontender with no deformity. No lesions are appreciated. Cardiovascular: Regular rate and rhythm with a normal S1 and S2. No gallops, murmurs, or rubs. Normal PMI, no JVD. No pulse deficits. Respiratory: Lungs have equal breath sounds bilaterally, clear to auscultation and percussion. No rales, rhonchi or wheezes noted. No increased work of breathing, no retractions or nasal flaring. Abdomen/GI: Soft, non-tender, with normal bowel sounds. No distension or tympany. No guarding or rebound. No evidence of tenderness throughout. Back: No spinal tenderness. No costovertebral tenderness. Full range of motion. MS/ Extremity: Pulses equal, no cyanosis. Neurovascular intact. Full, normal range of motion. Neuro: Awake and alert, GCS 15, oriented to person, place, time, and situation. Cranial nerves II-XII grossly intact. Motor strength 5/5 in all extremities. Sensory grossly intact. Cerebellar exam normal. Normal gait. Psych: Awake, alert, with orientation to person, place and time. Behavior, mood, and affect are within normal limits. 10:20 Skin: Appearance: normal except for affected area, lesion(s), noted, and can be described as erythematous, pustular, weeping, located on the dorsal aspect of left forearm. Vital Signs: 08:11 BP 142 / 100; Pulse 86; Resp 17; Temp 98.0(TE); Pulse Ox 97% on R/A; Weight 70.31 kg; ss Height 5 ft. 3 in. (160.02 cm); Pain 0/10; 08:11 Body Mass Index 27.46 (70.31 kg, 160.02 cm) ss MDM: 08:11 Patient medically screened. snw 10:19 Data reviewed: vital signs, nurses notes. Data interpreted: Pulse oximetry: on room air snw is 97 %. Interpretation: acceptable. Counseling: I had a detailed discussion with the patient and/or guardian regarding: the historical points, exam findings, and any diagnostic results supporting the discharge/admit diagnosis, the presence of at least one elevated blood pressure reading (>120/80) during this emergency department visit, the need for outpatient follow up, to return to the emergency department if symptoms worsen or persist or if there are any questions or concerns that arise at home. Special discussion: I have referred the patient to see his PCP for further evaluation of high blood pressure. Based on the history and exam findings, there is no indication for further emergent testing or inpatient evaluation. I discussed with the patient/guardian the need to see the waste and batting waste chopper for further evaluation of the symptoms. I discussed with the patient/guardian the need to see the primary care provider for further evaluation of the symptoms. Administered Medications: 08:47 Drug: Hibiclens 4 % 1 application Route: Topical; Site: affected area; hb 09:06 Follow up: Response: Medication administered at discharge. hb 08:48 Drug: Doxycycline 100 mg Route: PO; hb 09:10 Follow up: Response: Medication administered at discharge. hb 08:48 Drug: Pepcid 20 mg Route: PO; hb 09:10 Follow up: Response: Medication administered at discharge. hb Disposition: 04/23/19 08:55 Discharged to Home. Impression: Allergic contact dermatitis, Cellulitis of left upper limb. - Condition is Stable. - Discharge Instructions: Allergies, Adult, Cellulitis, Adult, Contact Dermatitis, Wound Infection, Wound Care. - Prescriptions for Doxycycline Hyclate 100 mg Oral Tablet - take 1 tablet by ORAL route every 12 hours; 20 tablet. Pepcid 20 mg Oral Tablet - take 1 tablet by ORAL route once daily; 20 tablet. - Medication Reconciliation Form, Thank You Letter, Antibiotic Education, Prescription Opioid Use form. - Follow up: Alannah Pimentel DO; When: 2 - 3 days; Reason: Recheck today's complaints, Continuance of care, Re-evaluation by your physician. Follow up: Emergency Department; When: As needed; Reason: Worsening of condition. Signatures: Marylu Saab, PARLOR CHAPERONE-C PAR[employer]OR CHAPERONE-Csnw Isamar Hilario RN RN Brandi Castillo RN RN hb Corrections: (The following items were deleted from the chart) 09:11 08:55 04/23/2019 08:55 Discharged to Home. Impression: Allergic contact dermatitis; hb Cellulitis of left upper limb. Condition is Stable. Forms are Medication Reconciliation Form, Thank You Letter, Antibiotic Education, Prescription Opioid Use. Follow up: Alannah Pimentel; When: 2 - 3 days; Reason: Recheck today's complaints, Continuance of care, Re-evaluation by your physician. Follow up: Emergency Department; When: As needed; Reason: Worsening of condition. snw
--- NOTE | 2019-04-23 08:56 | ER ---
Nurse's Notes [facility] Name: Ning Coffey Age: 73 yrs Sex: Female : 1945 Arrival Date: 04/23/2019 Time: 08:00 Bed 14 Private MD: Alannah Pimentel H Diagnosis: Allergic contact dermatitis;Cellulitis of left upper limb Presentation: 04/23 08:11 Presenting complaint: Patient states: "I was here in February or March with Impetigo and ss it's back." Rash with oozing to L forearm noted. Patient reports symptoms began 5 days ago. Transition of care: patient was not received from another setting of care. Onset of symptoms was April 18, 2019. Risk Assessment: Do you want to hurt yourself or someone else? Patient reports no desire to harm self or others. Initial Sepsis Screen: Does the patient meet any 2 criteria? No. Patient's initial sepsis screen is negative. Does the patient have a suspected source of infection? No. Patient's initial sepsis screen is negative. Care prior to arrival: None. 08:11 Acuity: DANIELLE 5 ss 08:11 Method Of Arrival: Ambulatory ss Historical: - Allergies: 08:07 Sulfa (Sulfonamide Antibiotics); hb 09:11 Levaquin; hb - PMHx: 08:07 CVA; Parkinsons; hb - PSHx: 08:07 Hysterectomy; splenectomy; Tonsillectomy; hb - Immunization history:: Adult Immunizations up to date. - Social history:: Smoking status: Patient/guardian denies using tobacco. - Ebola Screening: : Patient denies exposure to infectious person Patient denies travel to an Ebola-affected area in the 21 days before illness onset. Screenin:15 Abuse screen: Denies threats or abuse. Denies injuries from another. Nutritional hb screening: No deficits noted. Tuberculosis screening: No symptoms or risk factors identified. Fall Risk None identified. Assessment: 08:35 General: Appears in no apparent distress. Behavior is calm, cooperative. Pain: Denies hb pain. Neuro: Level of Consciousness is awake, alert, obeys commands, Oriented to person, place, time, situation. Cardiovascular: Capillary refill < 3 seconds Patient's skin is warm and dry. Respiratory: Airway is patent Respiratory effort is even, unlabored, Respiratory pattern is regular, symmetrical. GI: No signs and/or symptoms were reported involving the gastrointestinal system. : No signs and/or symptoms were reported regarding the genitourinary system. EENT: No signs and/or symptoms were reported regarding the EENT system. Derm: Rash noted that is draining clear fluid, macular, itchy, papular, red, on left arm. Musculoskeletal: No signs and/or symptoms reported regarding the musculoskeletal system. Vital Signs: 08:11 BP 142 / 100; Pulse 86; Resp 17; Temp 98.0(TE); Pulse Ox 97% on R/A; Weight 70.31 kg; ss Height 5 ft. 3 in. (160.02 cm); Pain 0/10; 08:11 Body Mass Index 27.46 (70.31 kg, 160.02 cm) ss ED Course: 08:00 Patient arrived in ED. mr 08:01 Alannah Pimentel DO is Private Physician. mr 08:01 Marylu Saab [facility]-C [facility]. snw 08:01 Tio Tello MD is Attending Physician. snw 08:06 Brandi Castillo, CHIDI is Primary Nurse. hb 08:06 Arm band placed on. hb 08:12 Triage completed. ss 08:35 Patient has correct armband on for positive identification. Bed in low position. Call hb light in reach. Side rails up X 1. 08:54 Alannah Pimentel DO is Referral Physician. snw 09:01 No provider procedures requiring assistance completed. Patient did not have IV access hb during this emergency room visit. Administered Medications: 08:47 Drug: Hibiclens 4 % 1 application Route: Topical; Site: affected area; hb 09:06 Follow up: Response: Medication administered at discharge. hb 08:48 Drug: Doxycycline 100 mg Route: PO; hb 09:10 Follow up: Response: Medication administered at discharge. hb 08:48 Drug: Pepcid 20 mg Route: PO; hb 09:10 Follow up: Response: Medication administered at discharge. hb Outcome: 08:55 Discharge ordered by . snw 09:01 Discharged to home ambulatory, with significant other. hb 09:01 Condition: stable 09:01 Discharge instructions given to patient, Instructed on discharge instructions, follow up and referral plans. medication usage, wound care, Demonstrated understanding of instructions, follow-up care, medications, wound care, Prescriptions given X 2. 09:11 Patient left the ED. hb Signatures: Marylu Saab, [employer]-Sofia Vee Shelby, RN RN Brandi Castillo RN RN hb
[2019-04-23 09:52] VITALS: BP 142/100; TEMP 98; O2SAT 97
== END 2019-04-23 09:11 | disposition home or self-care (01) ==
LOC: ER 07:57
DX: L23.9 Allergic contact dermatitis, unspecified cause (principal); L03.114 Cellulitis of left upper limb; Z88.2 Allergy status to sulfonamides; Z88.1 Allergy status to other antibiotic agents
CPT/HCPCS: 99283

== ENCOUNTER 2019-05-03 12:44 | Emergency (ER) | payer OTHER, MEDICARE ==
--- OUTSIDE RECORDS SUMMARY | 2019-05-03 12:48 | XMS REPORT | Continuity of Care Document ---
:1945 Author Organization [facility] ? Care Team Providers Name Role Phone [facility] [place] [employer] Unavailable Unavailable Problems Problem Status Onset Classification Date Comments Source Date Reported CVA Active 07/02/[address] SARAH Active 07/02/20 [facility] [address] ACUTE STROKE Active 07/02/[address] Atrial Active Problem 02/07/2019 [facility] [place] Neuro D[place] (Confirmed) Resolved Problem 02/07/2019 [facility] Parkinson Active Problem 02/07/2019 [facility] Atrial Active Problem 03/11/2019 [facility] fibrillation Neuro (disorder) Deep venous Resolved Problem 03/11/2019 [facility] thrombosis Neuro (disorder) Parkinson's Active Problem 03/11/2019 [facility] disease Neuro (disorder) CVA Active [facility] Medications Medication Details Route Status Patient Ordering Order Source Instructions Provider Date Carbidopa 25 MG 1 tab, PO, TID, # Active 03/08/ [facility] / Levodopa 100 90 tab, 4 2018 Neuro MG Oral Tablet Refill(s), Pharmacy: [facility] [id number] Esomeprazole 40 40 mg=1 cap, PO, Active 07/20/ [facility] MG Enteric Daily, 0 2017 Neuro Coated Capsule Refill(s) Carbidopa 25 MG 1 tab, PO, TID, # Active 07/20/ [facility] / Levodopa 100 90 tab, 4 2017 Neuro MG Oral Tablet Refill(s), Pharmacy: [facility] [id number] Warfarin 7.5 mg, 1 tab, Inactive 07/07/ [facility] Route: PO, Drug 2013 Medical [...] 325 mg 325 mg=1 tab, PO, Active [facility] tablet Daily, # 100 tab, 2014 Medical 3 Refill(s) Center warfarin 7.5 mg 7.5 mg, PO, Q5PM, Active [facility] oral tablet # 5 tab, 0 2013 Medical Refill(s) Center OLANZapine 2.5 2.5 mg=1 tab, PO, Active [facility] mg oral tablet Q6H, Agitation, 0 2013 Medical Refill(s) Center 0.4 mg=1 tab, PO, Active [facility] Multivitamins Daily, 0 2013 Medical with Folic Acid Refill(s) Center 0.4 mg oral tablet Folic Acid 1 MG 1 mg=1 tab, PO, Active [facility] Oral Tablet Daily, 0 2013 Medical Refill(s) Center Docusate Sodium 100 mg=1 cap, PO, Active [facility] 100 MG Oral Q12H, 0 Refill(s) 2013 Medical Capsule Center benzonatate 100 100 mg=1 cap, PO, Active [facility] mg oral capsule TID, Cough, 0 2013 Medical Refill(s) Center Acetaminophen 650 mg=2 tab, PO, Active [facility] 325 MG Oral Q4H, Pain 2013 Medical Tablet 1-3/Temp > 99.5 Center F, 0 Refill(s) Warfarin 5 mg, 1 tab, Inactive [facility] Route: PO, Drug 2013 Medical form: TAB, Q5PM, Center Dosing Weight 83, kg, Start date: 07/06/14 17:00:00, Duration: 1 doses or times, Stop date: 07/06/14 17:00:00Notes: Nurse to ensure documentation of patient education per anticoagulation policy. Avoid large intake of vitamin-K containing foods diet. (Same As: Coumadin) cefpodoxime 100 mg, Route: Inactive [facility] PO, Drug form: 2013 Medical TAB, [id number], Center Dosing Weight 83, kg, Priority: NOW, Start date: 07/06/14 11:17:00, Duration: 7 day, Stop date: 07/12/14 23:17:00 benzonatate 100 mg, 1 cap, No Longer [facility] Route: PO, Drug Active 2013 [...] 15:55:00Notes: (Same as: Mag-Ox 400) Magnesium oxide [id number] elemental magnesium Dose=____mg magnesium oxide (___mg elemental magnesium) Lactated Ringers 1,000 mL, Rate: Inactive [place] IV 1000 mL 100 ml/hr, Infuse 2013 Medical over: 10 hr, Center Route: IV, Dosing Weight 83 kg, Total Volume: 1,000, Start date: 07/05/14 11:26:00, Duration: 30 day, Stop date: 08/04/14 11:25:00 Lactated Ringers 1,000 mL, Rate: No Longer [facility] IV 1,000 mL 100 ml/hr, Infuse Active 2013 Medical over: 10 hr, Center Route: IV, Dosing Weight 83 kg, Total Volume: 1,000, Priority: STAT, Start date: 07/05/14 10:06:00, Duration: 30 day, Stop date: 08/04/14 10:05:00 Magnesium 2 gm, 50 mL, Inactive [facility] Sulfate Route: IVPB, Drug 2013 [...] 9:23:00 Rocephin 1 gm, Route: No Longer [place] IVPB, Drug form: Active 2013 Medical PDR/INJ, [id number], Center Dosing Weight 83, kg, Start date: 07/05/14 8:00:00, Duration: 30 day, Stop date: 08/03/14 8:00:00Notes: Use with 100ml NS mini-bag PLUS and infuse over 30 min ZyPREXA 2.5 mg, 1 tab, Inactive [place] Route: PO, Drug 2013 Medical form: TAB, Center Bedtime, Start date: 07/04/14 21:00:00, Duration: 1 doses or times, Stop date: 07/04/14 21:00:00Notes: (Same as: ZyPREXA) Geodon 5 mg, Route: IM, Inactive [place] Q4H, Dosing 2013 Medical Weight 83, kg, Center Start date: 07/04/14 21:00:00, Duration: 30 day, Stop date: 08/03/14 20:00:00 ZyPREXA 2.5 mg, 1 tab, No Longer [facility] Route: PO, Drug Active 2013 Medical form: TAB, Q6H, Center PRN Agitation, Start date: 07/04/14 17:08:00, Duration: 30 day, Stop date: 08/03/14 17:07:00Notes: (Same as: ZyPREXA) folic acid 1 mg 1 mg, 1 tab, No Longer [facility] oral tablet Route: PO, Drug Active 2013 Medical form: TAB, Daily, Center Start date: 07/04/14 17:00:00, Duration: 30 day, Stop date: 08/03/14 9:00:00Notes: (Same as: Folvite) Sodium Chloride 250 mL, Rate: 999 Inactive [place] 0.9% IV 250 mL ml/hr, Infuse 2013 [...] date: 08/01/14 21:00:00Notes: (Same As: Lipitor) sennosides, RETIREMENT 8.6 mg, 1 tab, No Longer [facility] Route: PO, Drug Active 2013 [...] Thiamine 100 mg, 1 tab, No Longer [facility] Route: PO, Drug Active 2013 Medical form: TAB, Daily, Center Dosing Weight 83, kg, Start date: 07/03/14 12:00:00, Duration: 30 day, Stop date: 08/02/14 9:00:00Notes: (Same As: Vitamin B1) 1 tab, Route: PO, No Longer [facility] Multivitamins Drug Form: TAB, Active [...] BD Posiflush) pneumococcal 0.5 ml, Route: Inactive [facility] capsular IM, Drug Form: 2013 [...] polysacchar Influenza Virus 0.5 mL, Route: Inactive [facility] Vaccine, IM, Drug Form: 2013 Medical Inactivated SUSP, Daily, [place] [id number] Start date: 07 (H3N2)-like 07/03/14 9:00:00, virus Duration: 1 doses ([id number]-[id number] or times, Stop 007 [facility] X-175C) date: 07/03/14 strain / 9:00:00Notes: Influenza Virus (Same as: Fluzone Vaccine, Quadrivalent) Inactivated R-[id number] 07, IVR-148 (H1N1) strain / Influenza Virus Vaccine, Inactivated, D-Acflntw-9 -lik Docusate 100 mg, 1 cap, No Longer [facility] Route: PO, Drug Active 2013 Medical form: CAP, Q12H, Center Dosing Weight 83, kg, Start date: 07/03/14 9:00:00, Duration: 30 day, Stop date: 08/01/14 21:00:00Notes: (Same as: Colace) (Do Not Crush) Diltiazem 20 mg, 4 mL, Inactive [facility] Route: IVP, Drug 2013 Medical form: INJ, ONCE, Center Dosing Weight 83, kg, PRN Other -See Comment, Start date: 07/03/14 8:58:00Notes: (Same as: Cardizem) magnesium 2 gm, 50 mL, Inactive [facility] sulfate Route: IVPB, Drug 2013 Medical form: INJ, Q2H, Center Start date: 07/03/14 6:00:00, Duration: 2 doses or times, Stop date: 07/03/14 8:00:00 calcium 3,000 mg, 30 mL, Inactive [facility] gluconate + Route: IV, ONCE, 2013 Medical Sodium Chloride Start date: Center 0.9% IV 100 mL 07/03/14 6:00:00, Stop date: 07/03/14 6:00:00 Sodium Chloride 500 mL, 500 Inactive [facility] 0.154 MEQ/ML ml/hr, Infuse 2013 [...] Acetaminophen 650 mg, 2 tab, No Longer [facility] Route: PO, Drug Active 2013 Medical form: TAB, Q4H, Center Dosing Weight 79.545, kg, PRN Pain 1-3/Temp > 99.5 F, Start date: 07/02/14 22:10:00, Duration: 30 day, Stop date: 08/01/14 22:09:00Notes: Do not exceed 4 gm/day. (Same as: Tylenol) Bisacodyl 10 mg, 1 supp, No Longer [facility] Route: AL, Drug Active 2013 Medical form: SUPP, Center Daily, Dosing Weight 79.545, kg, PRN Constipation, Start date: 07/02/14 22:10:00, Duration: 30 day, Stop date: 08/01/14 22:09:00Notes: (Same As: Dulcolax, Bisco-Lax) Nicardipine 40 mg, 200 mL, No Longer [place] Rate: Start at 5 Active 2013 Medical mg/hr., Dosing Center Weight 79.545, kg, Route: IV, Total Volume: 200, Titrate to maintain SBP 140-180mmHg., Start Date: 07/02/14 22:10:00, Duration: 30 day, Stop date: 08/01/14 22:09:00, Replace Every: 24 hrNotes: Same as: Cardene Concentration: (0.2 mg /1 ml ) Enalapril 0.625 mg, 0.5 mL, No Longer [place] Route: IVP, Drug Active 2013 Medical form: INJ, Q6H, Center Dosing Weight 79.545, kg, PRN Hypertension, Start date: 07/02/14 22:10:00, Duration: 30 day, Stop date: 08/01/14 22:09:00, For SBP > 180mmHg and/or DBP > 105mmHgNotes: (Same as: Vasotec-IV) Labetalol 10 mg, 2 mL, No Longer [place] Route: IVP, Drug Active 2013 Medical form: [...] Zofran 4 mg, 2 mL, No Longer [facility] Route: IVP, Drug Active 2013 Medical form: INJ, Q8H, Center Dosing Weight 79.545, kg, PRN as needed for nausea/vomiting, Priority: STAT, Start date: 07/02/14 21:57:00, Duration: 30 day, Stop date: 08/01/14 21:56:00Notes: (Same as: Zofran) Zofran 4 mg, Route: IVP, Inactive [facility] Drug form: INJ, 2013 Medical ONCE, Dosing Center Weight 79.545, kg, Priority: STAT, Start date: 07/02/14 21:54:00, Stop date: 07/02/14 21:54:00 iodixanol 125 mL, Route: Inactive [facility] IVP, Drug Form: 2013 Medical SOLN, Dosing Center Weight 79.545, kg, ONCALL, STAT, Start date: 07/02/14 21:53:00, Duration: 1 doses or times, Dose=2.2ml/kg, Max [id number] -- "To be infused by Radiology Staff ONLY"Special Instructions: Dose=2.2ml/kg, Max [id number]=018zm -- "To be infused by Radiology Staff ONLY" aspirin 0 Refill(s) No Longer [facility] Active 2013 Medical Center Saline Flush 10 mL, Route: No Longer [facility] 0.9% IVP, Drug Form: Active 2013 Medical INJ, kg, PRN, PRN [place] Flush, Start date: 07/02/14 21:34:00, Duration: 30 [...] completed Carter Davis vaccine, deltoid Neuro, inactivated [facility] Results Order Name Results Value Reference Date Interpretation Comments Source Range URINE AND Occult Bld Negative Negative 07/07 [facility] STOOL Stl (07/07/14 3:42 PM) [facility] ELECTROLYTE AGAP 14.5 10.0 - 07/07 [facility] S 20.0 [facility] ELECTROLYTE Potassium Lvl 4.5 3.5 - 5.1 07/07 [facility] ELECTROLYTE Sodium Lvl 142 135 - 145 07/07 [facility] ELECTROLYTE Calcium Lvl 8.6 8.5 - 10.5 07/07 [facility] ELECTROLYTE CO2 22 24 - 32 07/07 [facility] ELECTROLYTE Chloride Lvl 110 95 - 109 07/07 [facility] ELECTROLYTE eGFR 58 07/07 <sup>1</sup>R esult Medical [...] ELECTROLYTE Creatinine 1.0 0.5 - 1.4 07/07 [facility] S Lvl [facility] ELECTROLYTE BUN 23 7 - 22 07/07 [facility] ELECTROLYTE Glucose Lvl 97 70 - 99 07/07 <sup>4</sup>I nterpretive Medical Data: Adult Center reference range values reflect the clinical guidelines
of the Citizen [place] [employer]. HEMATOLOGY PT 12.7 12.0 - 07/07 [place] 14.7 [facility] HEMATOLOGY INR 0.95 0.85 - 07/07 <sup>10</sup> [facility] 1.17 Interpretive Medical Data: Center RECOMMENDED RANGES FOR PROTIME INR:
2.0-3.0 for most medical and surgical thromboemboli c states.
2.5-3.5 for artificial heart valves and recurrent embolism.<br/ >
INR SHOULD BE USED ONLY FOR PATIENTS ON STABLE ANTICOAGULANT THERAPY. HEMATOLOGY RDW 13.8 11.5 - 07/07 14.5 [facility] HEMATOLOGY RBC 3.59 4.20 - 07/07 [place] 5.40 /2013 [facility] HEMATOLOGY WBC 12.1 3.7 - 10.4 07/07 [facility] HEMATOLOGY Hgb 11.5 12.0 - 07/07 16.0 [facility] HEMATOLOGY Hct 36.0 36.0 - 07/07 48.0 [facility] HEMATOLOGY MCV 100.3 80.0 - 07/07 [facility] 98.0 /2013 [facility] HEMATOLOGY MCH 32.0 27.0 - 07/07 31.0 [facility] HEMATOLOGY MCHC 31.9 32.0 - 07/07 [place] 36.0 /2013 [facility] HEMATOLOGY MPV 11.4 7.4 - 10.4 07/07 [facility] HEMATOLOGY Platelet 175 133 - 450 07/07 [facility] HEMATOLOGY Monocytes 14.9 2.0 - 12.0 07/07 [facility] HEMATOLOGY Eosinophils 3.5 0.0 - 4.0 07/07 [facility] HEMATOLOGY Basophils 0.4 0.0 - 1.0 07/07 [facility] HEMATOLOGY Lymphocytes # 3.9 1.0 - 5.5 07/07 [facility] HEMATOLOGY Monocytes # 1.8 0.0 - 0.8 07/07 [facility] HEMATOLOGY Segs-Bands # 5.9 1.5 - 8.1 07/07 [facility] HEMATOLOGY Eosinophils # 0.4 0.0 - 0.5 07/07 [facility] HEMATOLOGY Macrocyte 1+ None Seen 07/07 [facility] *ABN* /2013 Medical (07/07/14 1:00 AM) [place] HEMATOLOGY Lymphocytes 32.6 20.0 - 07/07 [place] 40.0 /2013 [facility] HEMATOLOGY Segs 48.6 45.0 - 07/07 [facility] 75.0 [facility] HEMATOLOGY PT 13.9 12.0 - 07/07 [facility] 14.7 [facility] HEMATOLOGY INR 1.07 0.85 - 07/07 <sup>11</sup> [facility] 1.17 Interpretive Medical Data: Center RECOMMENDED RANGES FOR PROTIME INR:
2.0-3.0 for most medical and surgical thromboemboli c states.
2.5-3.5 for artificial heart valves and recurrent embolism.<br/ >
INR SHOULD BE USED ONLY FOR PATIENTS ON STABLE ANTICOAGULANT THERAPY. HEMATOLOGY PTT 35.0 22.9 - 07/07 <sup>13</sup> [facility] 35.8 Interpretive Medical Data: [facility] Center Therapeutic Range: 57 - 92 Seconds ANEMIA Folate Lvl 14.3 >=3.0 07/06 [facility] ng/mL [facility] ANEMIA Vitamin B12 908 254 - 1320 07/06 [facility] Lvl [facility] ANEMIA UIBC 245 110 - 370 07/06 [facility] ANEMIA % [place] 18 12 - 57 07/06 [facility] ANEMIA Iron 52 30 - 160 07/06 [facility] ANEMIA TIBC 297 228 - 428 07/06 [facility] ANEMIA Transferrin 227 212 - 360 07/06 [facility] HEMATOLOGY Monocytes 15.2 2.0 - 12.0 07/06 [facility] HEMATOLOGY Eosinophils # 0.3 0.0 - 0.5 07/06 [facility] HEMATOLOGY Monocytes # 1.6 0.0 - 0.8 07/06 [facility] HEMATOLOGY Basophils 0.4 0.0 - 1.0 07/06 [facility] HEMATOLOGY Eosinophils 3.2 0.0 - 4.0 07/06 [facility] HEMATOLOGY Lymphocytes # 3.4 1.0 - 5.5 07/06 [facility] HEMATOLOGY Segs-Bands # 5.3 1.5 - 8.1 07/06 [facility] HEMATOLOGY Segs 49.6 45.0 - 07/06 [facility] 75.0 [facility] HEMATOLOGY Plt Morph Normal 07/06 [facility] (07/06/14 2:30 AM) [facility] HEMATOLOGY Lymphocytes 31.6 20.0 - 07/06 [place] 40.0 [facility] HEMATOLOGY RBC Morph Normal 07/06 [facility] (07/06/14 2:30 AM) [facility] HEMATOLOGY WBC 10.6 3.7 - 10.4 07/06 [facility] HEMATOLOGY MCV 97.8 80.0 - 07/06 [place] 98.0 /2013 [facility] HEMATOLOGY Hct 37.0 36.0 - 07/06 [place] 48.0 [facility] HEMATOLOGY Hgb 12.1 12.0 - 07/06 [place] 16.0 [facility] HEMATOLOGY RBC 3.78 4.20 - 07/06 [place] 5. [facility] HEMATOLOGY MCHC 32.8 32.0 - 07/06 [place] 36.0 [facility] HEMATOLOGY MCH 32.1 27.0 - 07/06 [place] 31.0 [facility] HEMATOLOGY RDW 13.9 11.5 - 07/06 [place] 14. [facility] HEMATOLOGY MPV 12.2 7.4 - 10.4 07/06 [facility] HEMATOLOGY Platelet 167 133 - 450 07/06 [facility] CARDIAC Troponin-T <0.010 0.000 - 07/05 [facility] ENZYMES 0.100 [facility] CARDIAC Total CK 123 12 - 191 07/05 [facility] CARDIAC Troponin-I 0.02 0.00 - 07/05 [place] ENZYMES 0. [facility] CARDIAC CK MB Index 1.0 0.0 - 2.5 07/05 [place] ENZYMES [facility] CARDIAC CK MB 1.2 0.5 - 3.6 07/05 [facility] HEMATOLOGY Basophils 0.7 0.0 - 1.0 07/05 [facility] HEMATOLOGY Eosinophils 2.4 0.0 - 4.0 07/05 [facility] HEMATOLOGY Segs-Bands # 5.3 1.5 - 8.1 07/05 [facility] HEMATOLOGY Lymphocytes # 2.1 1.0 - 5.5 07/05 [facility] HEMATOLOGY Monocytes # 1.4 0.0 - 0.8 07/05 [facility] HEMATOLOGY Eosinophils # 0.2 0.0 - 0.5 07/05 [facility] HEMATOLOGY Basophils # 0.1 0.0 - 0.2 07/05 [facility] HEMATOLOGY Segs 58.2 45.0 - 07/05 [place] 75.0 [facility] HEMATOLOGY Monocytes 15.5 2.0 - 12.0 07/05 [facility] HEMATOLOGY Lymphocytes 23.2 20.0 - 07/05 [place] 40.0 [facility] HEMATOLOGY MCHC 33.0 32.0 - 07/05 [place] 36.0 [facility] HEMATOLOGY RDW 14.0 11.5 - 07/05 [place] 14. [facility] HEMATOLOGY WBC 9.1 3.7 - 10.4 07/05 [facility] HEMATOLOGY RBC 3.13 4.20 - 07/05 [place] 5.40 [facility] HEMATOLOGY Hgb 10.1 12.0 - 07/05 [place] 16.0 [facility] HEMATOLOGY Platelet 142 133 - 450 07/05 [facility] HEMATOLOGY MPV 12.1 7.4 - 10.4 07/05 [facility] HEMATOLOGY Hct 30.7 36.0 - 07/05 [place] 48.0 [facility] HEMATOLOGY MCH 32.3 27.0 - 07/05 [place] 31.0 [facility] HEMATOLOGY MCV 98.0 80.0 - 07/05 [place] 98.0 [facility] HEMATOLOGY Basophils # 0.1 0.0 - 0.2 07/05 [facility] CHEM PANEL Magnesium Lvl 1.6 1.8 - 2.4 07/05 [facility] CHEM PANEL Phosphorus 3.7 2.5 - 4.5 07/05 [facility] CHEM PANEL eGFR 76 07/05 <sup>2</sup>R esult [...] PANEL CO2 25 24 - 32 07/05 [facility] CHEM PANEL Calcium Lvl 8.3 8.5 - 10.5 07/05 [facility] CHEM PANEL Sodium Lvl 145 135 - 145 07/05 [facility] CHEM PANEL BUN 15 7 - 22 07/05 [facility] CHEM PANEL Creatinine 0.8 0.5 - 1.4 07/05 [facility] CHEM PANEL Chloride Lvl 112 95 - 109 07/05 [facility] CHEM PANEL Potassium Lvl 4.5 3.5 - 5.1 07/05 [facility] CHEM PANEL Glucose Lvl 89 70 - 99 07/05 <sup>5</sup>I nterpretive Medical Data: Adult Center reference range values reflect the clinical guidelines
of the Citizen [place] Diabetes [employer]. CHEM PANEL AGAP 12.5 10.0 - 07/05 [facility] 20.0 [facility] DRUG SCREEN U Phencyc Scr Negative Negative 07/05 [facility] *NA* [facility] (07/04/14 7:50 PM) Center DRUG SCREEN UDS Note See Note 8 07/05 <sup>8</sup>I [facility] (07/04/14 7:50 PM) nterpretive Medical Data: Drugs Center reported as positive have not been confirmed by a second
sc thod and should be used for medical [...] DRUG SCREEN U Benzodia Positive Negative 07/05 [facility] *ABN* Medical (07/04/14 7:50 PM) Center DRUG SCREEN U Cannab Scr Negative Negative 07/05 [facility] *NA* Medical (07/04/14 7:50 PM) Center DRUG SCREEN U Cocaine Scr Negative Negative 07/05 [facility] *NA* Medical (07/04/14 7:50 PM) Center DRUG SCREEN U Opiate Scr Negative Negative 07/05 [place] *NA* Medical (07/04/14 7:50 PM) Center DRUG SCREEN U Amph Scr Negative Negative 07/05 [facility] *NA* [facility] (07/04/14 7:50 PM) Center URINE AND UA <=1.0 0.1 - 1.0 07/05 [facility] STOOL Urobilinogen mg/dL [facility] URINE AND UA RBC 1 0 - 2 07/05 [facility] URINE AND UA Mucus Few /LPF None Seen 07/05 [facility] STOOL /LPF [facility] URINE AND UA Hyal Cast 1 0 - 2 07/05 [facility] URINE AND UA WBC 9 0 - 5 07/05 [facility] URINE AND UA Glucose Negative Negative 07/05 [facility] STOOL mg/dL mg/dL [facility] URINE AND UA Ketones Negative Negative 07/05 [facility] STOOL mg/dL mg/dL [facility] URINE AND UA pH 5.0 5.0 - 8.0 07/05 [facility] STOOL Medical [place] URINE AND UA Protein Negative Negative 07/05 [facility] mg/dL mg/dL [facility] URINE AND UA Spec Grav 1.010 <=1.030 07/05 [facility] URINE AND UA Leuk Est Moderate Negative 07/05 [facility] *ABN* [facility] (07/04/14 7:50 PM) [place] URINE AND UA Sq Epi Few /LPF Few /LPF 07/05 [facility] URINE AND UA Bili Negative Negative 07/05 [facility] *NA* [facility] (07/04/14 7:50 PM) [place] URINE AND UA Blood Negative Negative 07/05 [facility] (07/04/14 7:50 PM) [facility] URINE AND UA Nitrite Negative Negative 07/05 [facility] (07/04/14 7:50 PM) [facility] URINE AND UA Color Yellow Yellow 07/05 [facility] *NA* [facility] (07/04/14 7:50 PM) [place] URINE AND UA Turbidity Clear Clear 07/05 [facility] (07/04/14 7:50 PM) [facility] CHEM PANEL Lactic Acid 1.0 0.5 - 2.2 07/04 [facility] CHEM PANEL Globulin 2.5 2.0 - 4.0 07/04 [facility] CHEM PANEL A/G Ratio 1.3 0.7 - 1.6 07/04 [facility] CHEM PANEL Bili Indirect 0.3 0.0 - 1.0 07/04 [facility] CHEM PANEL Total Protein 5.7 6.4 - 8.4 07/04 [facility] CHEM PANEL Alk Phos 61 39 - 136 07/04 [facility] CHEM PANEL Albumin Lvl 3.2 3.5 - 5.0 07/04 [facility] CHEM PANEL ALT 21 0 - 65 07/04 [facility] CHEM PANEL AST 16 0 - 37 07/04 [facility] CHEM PANEL Bili Direct 0.1 0.0 - 0.3 07/04 [facility] CHEM PANEL Bili Total 0.4 0.2 - 1.3 07/04 [facility] CHEM PANEL Phosphorus 3.3 2.5 - 4.5 07/04 [facility] CHEM PANEL Magnesium Lvl 1.8 1.8 - 2.4 07/04 [facility] CHEM PANEL eGFR 66 07/04 <sup>3</sup>R esult [...] PANEL AGAP 11.5 10.0 - 07/04 . [facility] CHEM PANEL Calcium Lvl 8.3 8.5 - 10.5 07/04 [facility] CHEM PANEL Sodium Lvl 144 135 - 145 07/04 [facility] CHEM PANEL Potassium Lvl 4.5 3.5 - 5.1 07/04 [facility] CHEM PANEL Chloride Lvl 113 95 - 109 07/04 [facility] CHEM PANEL CO2 24 24 - 32 07/04 [facility] CHEM PANEL Glucose Lvl 107 70 - 99 07/04 <sup>6</sup>I nterpretive Medical Data: Adult Center reference range values reflect the clinical guidelines
of the Citizen Of The [place] [employer]. CHEM PANEL BUN 12 7 - 22 07/04 [facility] CHEM PANEL Creatinine 0.9 0.5 - 1.4 07/04 [facility] HEMATOLOGY INR 1.14 0.85 - 07/04 <sup>12</sup> [facility] 09.23 Interpretive Medical Data: Center RECOMMENDED RANGES FOR PROTIME INR:
2.0-3.0 for most medical and surgical thromboemboli c states.
2.5-3.5 for artificial heart valves and recurrent embolism.<br/ >
INR SHOULD BE USED ONLY FOR PATIENTS ON STABLE ANTICOAGULANT THERAPY. HEMATOLOGY PTT 26.0 22.9 - 07/04 <sup>14</sup> [facility] 35.8 /2013 Interpretive Medical Data: Heparin Center Therapeutic Range: 57 - 92 Seconds HEMATOLOGY PT 14.7 12.0 - 07/04 [facility] 14. [facility] PARATHYROID Ca Norm WB 1.06 1.05 - 07/04 [facility] PROFILE 10.01 [facility] PARATHYROID Ca Ion WB 1.06 1.05 - 07/04 [facility] 10.01 [facility] DRUG SCREEN UDS Note See Note 9 07/03 <sup>9</sup>I [facility] *NA* /2013 nterpretive Medical (07/03/14 10:50 AM) Data: Drugs Center reported as positive have not been confirmed by a second
sc thod and should be used for medical [...] LIPIDS CHD Risk 1.95 3.90 - 07/03 [facility] 5.80 [facility] LIPIDS VLDL 8 07/03 [facility] LIPIDS LDL 72 <=99 mg/dL 07/03 [facility] (Calculated) [facility] LIPIDS Trig 42 <=149 07/03 [facility] mg/dL [facility] LIPIDS Chol 164 <=199 07/03 [facility] mg/dL [facility] LIPIDS HDL 84 >=61 mg/dL 07/03 <sup>7</sup>R esult Medical Comment: Center Specimen Slightly Hemolyzed. SPECIAL Hgb A1C 4.9 <=5.6 % 07/03 [facility] CHEMISTRY [facility] URINE AND UA <=1.0 0.1 - 1.0 07/03 [facility] STOOL Urobilinogen mg/dL [facility] URINE AND UA Bacteria Occasional None Seen 07/03 [facility] STOOL /HPF /HPF /2013 [facility] URINE AND UA Mucus Few /LPF None Seen 07/03 [facility] STOOL /LPF [facility] URINE AND UA Amorph Occasional None Seen 07/03 [facility] STOOL Christin /HPF /HPF [facility] URINE AND UA Sq Epi Occasional Few /LPF 07/03 [facility] STOOL /LPF /2013 [facility] URINE AND UA WBC 4 0 - 5 07/03 [facility] URINE AND UA Nitrite Negative Negative 07/03 [facility] STOOL (07/03/14 10:50 AM) [facility] URINE AND UA Blood Negative Negative 07/03 [facility] STOOL (07/03/14 10:50 AM) [facility] URINE AND UA Ketones Negative Negative 07/03 [facility] mg/dL mg/dL [facility] URINE AND UA RBC 2 0 - 2 07/03 [facility] URINE AND UA Leuk Est Negative Negative 07/03 [facility] STOOL (07/03/14 10:50 AM) [facility] URINE AND UA Color Light Yellow Yellow 07/03 [facility] STOOL *NA* /2013 [facility] (07/03/14 10:50 AM) [place] URINE AND UA pH 5.0 5.0 - 8.0 07/03 [facility] URINE AND UA Bili Negative Negative 07/03 [facility] *NA* /2013 [facility] (07/03/14 10:50 AM) [place] URINE AND UA Glucose Negative Negative 07/03 [facility] mg/dL mg/dL [facility] URINE AND UA Turbidity Slight Clear 07/03 [facility] *ABN* [facility] (07/03/14 10:50 AM) [place] URINE AND UA Spec Grav 1.007 <=1.030 07/03 [facility] URINE AND UA Protein Negative Negative 07/03 [facility] mg/dL mg/dL [facility] BACTERIAL - MRSA by PCR Negative 16 07/03 <sup>16</sup> [facility] (07/03/14 3:11 AM) Interpretive Medical Data: Center [...] by the Molecular Diagnostic Laboratory within the [facility]. The Molecular Diagnostic Laboratory is authorized under the Clinical Laboratory Improvement Amendment of 1988 (CLIA-88) to perform high complexity testing. CARDIAC Troponin-I <0.02 0.00 - 07/03 [facility] ENZYMES 0.40 [facility] CARDIAC Total CK 51 12 - 191 07/03 ENZYMES [facility] CHEM PANEL Phosphorus 2.8 2.5 - 4.5 07/03 [facility] CHEM PANEL Magnesium Lvl 1.7 1.8 - 2.4 07/03 [facility] CHEM PANEL Total Protein 5.6 6.4 - 8.4 07/03 [facility] CHEM PANEL Albumin Lvl 3.0 3.5 - 5.0 07/03 [facility] CHEM PANEL Globulin 2.6 2.0 - 4.0 07/03 [facility] CHEM PANEL A/G Ratio 1.2 0.7 - 1.6 07/03 [facility] CHEM PANEL ALT 26 0 - 65 07/03 [facility] CHEM PANEL Alk Phos 66 39 - 136 07/03 [facility] CHEM PANEL AST 18 0 - 37 07/03 [facility] CHEM PANEL Bili Indirect 0.1 0.0 - 1.0 07/03 [facility] CHEM PANEL Bili Total 0.2 0.2 - 1.3 07/03 [facility] CHEM PANEL Bili Direct 0.1 0.0 - 0.3 07/03 [facility] HEMATOLOGY PTT 28.0 22.9 - 07/03 <sup>15</sup> [place] 35.8 /2014 Interpretive Medical Data: Heparin Center Therapeutic Range: 57 - 92 Seconds PARATHYROID Ca Norm WB 1.01 1.05 - 07/03 [facility] PROFILE 1.25 [facility] PARATHYROID Ca Ion WB 1.04 1.05 - 07/03 [place] PROFILE 1. [facility] CARDIAC Troponin-T 0.031 0.000 - 07/03 [facility] ENZYMES 0.100 /2013 [facility] BLOOD BANK Antibody Scrn Negative 07/03 [facility] RESULTS (07/02/14 11:20 PM) [facility] BLOOD BANK ABO/Rh O POS 07/03 [facility] RESULTS [facility] CARDIAC Troponin-I <0.02 0.00 - 07/03 [facility] ENZYMES 0.40 [facility] CARDIAC Total CK 59 12 - 191 07/03 [facility] ENZYMES [facility] CARDIAC CK MB 0.7 0.5 - 3.6 07/03 [facility] ENZYMES [facility] CARDIAC CK MB Index 1.2 0.0 - 2.5 07/03 [facility] ENZYMES [facility] HEMATOLOGY Basophils # 0.0 0.0 - 0.2 07/03 [facility] HEMATOLOGY RBC Morph Normal 07/03 [facility] (07/02/14 10:15 PM) [facility] HEMATOLOGY Plt Morph Normal 07/03 [facility] (07/02/14 10:15 PM) [facility] CHEM PANEL POC 1.2 0.5 - 1.4 07/03 [facility] Creatinine [facility] Pathology Reports No Data Provided for This Section Diagnostic Reports No Data Provided for This Section Consultation Notes No Data Provided for This Section Discharge Summaries No Data Provided for This Section History and Physicals No Data Provided for This Section Vital Signs Vital Sign Value Date Comments Source Heart Rate 87 03/08/2019 [facility] Respitory Rate 16 03/08/2019 [facility] Systolic (mm Hg) 119 03/08/2019 [facility] Diastolic (mm Hg) 77 03/08/2019 [facility] Height 162.56 cm 07/20/2018 [facility] BMI Calculated 25.8 07/20/2018 [facility] Weight 68.182 07/20/2018 [facility] Heart Rate 71 07/20/2018 [facility] Respitory Rate 16 07/20/2018 [facility] Systolic (mm Hg) 124 07/20/2018 [facility] Diastolic (mm Hg) 82 07/20/2018 [facility] Systolic (mm Hg) 147 07/08/2014 The [...] For Provider Date Date Visit [facility] [id number] Korin 07/03 07/08 [facility] Outpatient [id number] SONIA 12/15 [facility] [place] Outpatient [id number] SONIA 03/16 [facility] Outpatient [id number] SONIA 07/20 [facility] Outpatient [id number] Sonia 07/20 07/21 [facility] Outpatient [id number] SONIA 11/09 [facility] Outpatient [id number] Sonia 03/08 [facility] Outpatient [id number] Sonia 03/08 03/09 [facility] [place] Outpatient [id number] Sonia 09/13 [facility] Procedures Procedure Code Date Perfomer Comments Source Splenectomy [id number] [facility] Assessment [...] sub q. DISPO: [place] in patient rehab [facility] hospitalist is consult. Pager [phone] Extracted from:Title: Clinical Document Author: Nidhi Muñiz [...] and near fall again, called 911, admit [facility] 07/02/14 L humerus/forearm x-rays negative for fracture, EKG A -fib, diagnosed R MCA/aircraft detail draftsperson /cerebellar infarct s/p iv tpa, cta showed R M1 occlusion and R distal aircraft detail draftsperson occlusion s/p thrombectomy with recanalization o f [...] Bedtime 07/05/14 cefTRIAXone (Rocephin) 1 gm IVPB [id number] 07/03/14 docusate 100 mg PO Q12H 07/04/14 [...] mg PO Q4H 07/02/14 bisacodyl 10 mg AL Daily 07/02/14 enalapril 0.625 mg IVP Q6H [...] involving the anterior insula. 3. Acute right COFFEE SOMMELIER territory infarct. 4. Infarct of the inferior [...] ap 61 ASSESSMENT:68 yo LH F admit [facility] 07/02/14 diagnosed R MCA/aircraft detail draftsperson/cerebellar infarct with functional deficits of subjectively decreased vision L eye, L leg> L arm weakness, L>R dysmetria. RECOMMEND: Neurorehabilitation PT/OT/ST. cleared for regular diet with thin liquids. Medical R MCA/COFFEE SOMMELIER/R cerebellar hemisphere infarct s/p iv tpa and [...] Admission: 07/02/14 Requesting Physician/Service: Life flight CC: PROP SAWYER LFD dysarthria HISTORY OF PRESENT ILLNESS: 48F [...] dysarthric, comprehension intact, repetition and naming intact fine hairer: pupils 3mm equal and briskly reactive, left [...] 2-neither 0 1c. LOC Commands open/close eyes, pack worker supervisor/release non-paretic hand; 0-both 1- one 2-neither 1 [...] HbA1c. Treat fevers and blood sugars aggressively. PT/OT/TELETYPESETTER OPERATOR consults - rehab assessments have been ordered. NPO prior to bedside swallow assessment; and escalation of care as determined by nurse DVT prophylaxis with SCDs. THE FOLLOWING WERE PRESENT ON ADMISSION: PAID SEARCH SPECIALIST -Hemiparesis or Hemiplegia ACUTE STROKE BENCHMARKS: TIME PATIENT LAST SEEN NORMAL 20:15 CODE STROKE ACTIVATION (CARE4 COMPUTER TIME) approximately 21:25 NEUROLOGY RESIDENT ARRIVAL AT THE BEDSIDE (CARE4 COMPUTER TIME) 21:30 IV TPA BOLUS (TIME AND DOSE) 21:48 7.2mg IV TPA INFUSION (TIME AND DOSE) 21:49 64.4mg DELAYS IN THE CODE STROKE PROCESS none The patient was discussed with Dr. Dominguez, the fellow director decision support. Klaus Holly MD PGY2 Neurology Resident MSO [phone] Pager [phone] Addendum by Brissa Dominguez MD on 07/03/2014 02:05 Stroke Fellow Addendum Please refer to the resident physician's note above for full details. I have discussed the case with the director decision support resident and agree with their assessment with [...] headache. Head CT s howed old R COFFEE SOMMELIER territory and R cerebellar infarcts though she [...] ___1-one ___2-neither 1c. LOC Commands open/close eyes, pack worker supervisor/release non-paretic hand; __X_0-both ___ 1-one ___2-neither 2. [...] likely cardioemoblic. She has a prior R COFFEE SOMMELIER and R cerebellar infarct however the y radiographically appear older than just 4 days ago but if this event 4 days ago does represent a recent stroke, she would be at increased risk for hemorragic conversion. [] repeat head CT @ 6am to look monitor for hemorrhagic conversion - Post tPA vital signs and neurochecks per protocol - Goal [id number] - HOB flat, NS 125cc/hr, aggressive blood [...]
--- OUTSIDE RECORDS SUMMARY | 2019-05-03 12:49 | XMS REPORT ---
[...] End Date Status Dosage Date Omeprazole [facility] 43309-46 Active not defined 81-02 Tylenol # 3 NDC 0 Active not defined Xarelto [facility] 99345-10 Active not defined 77-10 Carbidopa-Levod [facility] 12556-41 Active not defined opa 12-07 Tylenol # 3 NDC 0 300/30mg PO Q Nov 03, Active one tab 4-6 HRS PRN PAIN 2019 Results No Known Results Summary Purpose [employer]ClinicalWorks Submission
--- OUTSIDE RECORDS SUMMARY | 2019-05-03 12:49 | XMS REPORT ---
[...] Medications Results No Known Results Summary Purpose [employer] Submission
--- OUTSIDE RECORDS SUMMARY | 2019-05-03 12:49 | XMS REPORT ---
[...] End Status Dosage System Date Date Carbidopa-Levo [facility] [address]-10 Active not dopa defined Xarelto [facility] [address]-95 Active not defined Tylenol # 3 NDC 0 Active not defined Omeprazole [facility] [id number] Active not defined Tylenol # 3 NDC 0 300/30mg PO Q Nov 03, Active one tab 4-6 HRS PRN 2019 PAIN Results No Known Results Summary Purpose eClinicalWorks Submission
--- OUTSIDE RECORDS SUMMARY | 2019-05-03 12:49 | XMS REPORT ---
[...] Start End Date Status Dosage Date Carbidopa-Levod [facility] 15459-24 Active not defined opa 12-07 Xarelto [facility] 51032-04 Active not defined 77-10 [place] [address]-94 Active not defined 81-02 Tylenol # 3 NDC 0 300/30mg PO Q Nov 03, Active one tab 4-6 HRS PRN PAIN 2018 Tylenol # 3 NDC 0 Active not defined Results No Known Results Summary Purpose eClinicalWorks Submission
--- OUTSIDE RECORDS SUMMARY | 2019-05-03 12:49 | XMS REPORT ---
[...] End Date Status Dosage System Date Omeprazole [facility] [id number] Active not defined Xarelto [facility] [address]-90 Active not defined Tylenol # 3 NDC 0 300/30mg PO Q Nov 03, Active one tab 4-6 HRS PRN 2018 PAIN Tylenol # 3 NDC 0 Active not defined Carbidopa-Levo [facility] [address]-34 Active not dopa defined Amoxicillin [facility] 91145805921 875 MG Orally December Active 1 tablet every 12 hrs 2018 Amoxicillin [facility] 86920805357 875 MG Orally December Active 1 tablet TID 2018 Results No Known Results Summary Purpose eClinicalWorks Submission
--- OUTSIDE RECORDS SUMMARY | 2019-05-03 12:49 | XMS REPORT ---
[...] End Status Dosage System Date Date Carbidopa-Levo [facility] [address]-38 Active not dopa defined Tylenol # 3 NDC 0 Active not defined Omeprazole [facility] 22152814611 Active not defined Xarelto [facility] [address]-58 Active not defined Tylenol # 3 NDC 0 300/30mg PO Q Nov 03, Active one tab 4-6 HRS PRN 2019 PAIN Results No Known Results Summary Purpose eClinicalWorks Submission
--- OUTSIDE RECORDS SUMMARY | 2019-05-03 12:49 | XMS REPORT ---
[...] Medications Results No Known Results Summary Purpose [employer] Submission
--- OUTSIDE RECORDS SUMMARY | 2019-05-03 12:50 | XMS REPORT ---
[...] End Status Dosage System Date Date Xarelto [facility] [address]-81 Active not defined Omeprazole [facility] [id number] Active not defined Tylenol # 3 NDC 0 300/30mg PO Q Nov 03, Active one tab 4-6 HRS PRN 2019 PAIN Carbidopa-Levo [facility] [address]-54 Active not dopa defined Results No Known Results Summary Purpose eClinicalWorks Submission
--- OUTSIDE RECORDS SUMMARY | 2019-05-03 12:50 | XMS REPORT ---
[...] End Date Status Dosage System Date Carbidopa-Levo [facility] [address]-97 Active not dopa defined Amoxicillin [facility] 44915997771 875 MG Orally December Active 1 tablet TID 2018 Xarelto [facility] [address]-63 Active not defined Omeprazole [facility] 53631770929 Active not defined Tylenol # 3 NDC 0 300/30mg PO Q Nov 03, Active one tab 4-6 HRS PRN 2018 PAIN Results No Known Results Summary Purpose eClinicalWorks Submission
--- OUTSIDE RECORDS SUMMARY | 2019-05-03 12:50 | XMS REPORT ---
[...] tab 4-6 HRS PRN 2018 PAIN Xarelto [facility] [address]-32 Active not defined Amoxicillin [facility] 49538075785 875 MG Orally 1 DecemberJanuary 10, Active 1 tablet po BID 2018 Carbidopa-Levod [facility] [address]-43 Active not opa defined Omeprazole [facility] 89728077745 Active not defined Results No Known Results Summary Purpose eClinicalWorks Submission
--- NOTE | 2019-05-03 13:06 | EDPHYS ---
Physician Documentation [facility] Name: Ning Coffey Age: 73 yrs Sex: Female : 1945 Arrival Date: 05/03/2019 Time: 12:47 Bed 25 Private MD: Alannah Pimentel H ED Physician Shlomo Harvey HPI: 05/03 13:56 This 73 yrs old Female presents to ER via Ambulatory with complaints of Rash. snw 14:17 The patient's rash thought to be caused by allergies. The rash is located on the body snw diffusely. The rash can be described as macular. Onset: The symptoms/episode began/occurred suddenly. Associated signs and symptoms: Pertinent positives: itching. Treatment given at home: just finished doxy and prednisone for arm rash that looks much improved. The patient has experienced similar episodes in the past. The patient has been recently seen by a physician: for previous cellulitis. Historical: - Allergies: 12:50 Levaquin; la1 12:50 Sulfa (Sulfonamide Antibiotics); la1 - Home Meds: 13:23 Omeprazole Oral as needed [Active]; Xarelto 15 mg Oral tab daily [Active]; tw2 hydrocodone-acetaminophen 10-325 mg Oral tab 1 tab every 4 hours for Pain [Active]; carbidopa-levodopa 25-100 mg Oral tab [Active]; Carbidopa-Levodopa Oral [Active]; - PMHx: 12:50 CVA; Parkinsons; la1 - PSHx: 13:23 Hysterectomy; splenectomy; Tonsillectomy; tw2 - Immunization history:: Adult Immunizations up to date. - Social history:: Smoking status: Patient/guardian denies using tobacco. - Ebola Screening: : No symptoms or risks identified at this time. ROS: 13:56 Constitutional: Negative for fever, chills, and weight loss, Eyes: Negative for injury, snw pain, redness, and discharge, ENT: Negative for injury, pain, and discharge, Neck: Negative for injury, pain, and swelling, Cardiovascular: Negative for chest pain, palpitations, and edema, Respiratory: Negative for shortness of breath, cough, wheezing, and pleuritic chest pain, Abdomen/GI: Negative for abdominal pain, nausea, vomiting, diarrhea, and constipation, Back: Negative for injury and pain, : Negative for injury, bleeding, discharge, and swelling, MS/Extremity: Negative for injury and deformity, Neuro: Negative for headache, weakness, numbness, tingling, and seizure, Psych: Negative for depression, anxiety, suicide ideation, homicidal ideation, and hallucinations. 13:56 Skin: Positive for rash, diffusely. Exam: 13:55 Constitutional: This is a well developed, well nourished patient who is awake, alert, snw and in no acute distress. Head/Face: Normocephalic, atraumatic. Eyes: Pupils equal round and reactive to light, extra-ocular motions intact. Lids and lashes normal. Conjunctiva and sclera are non-icteric and not injected. Cornea within normal limits. Periorbital areas with no swelling, redness, or edema. ENT: Nares patent. No nasal discharge, no septal abnormalities noted. Tympanic membranes are normal and external auditory canals are clear. Oropharynx with no redness, swelling, or masses, exudates, or evidence of obstruction, uvula midline. Mucous membranes moist. Neck: Trachea midline, no thyromegaly or masses palpated, and no cervical lymphadenopathy. Supple, full range of motion without nuchal rigidity, or vertebral point tenderness. No Meningismus. Chest/axilla: Normal chest wall appearance and motion. Nontender with no deformity. No lesions are appreciated. Cardiovascular: Regular rate and rhythm with a normal S1 and S2. No gallops, murmurs, or rubs. Normal PMI, no JVD. No pulse deficits. Respiratory: Lungs have equal breath sounds bilaterally, clear to auscultation and percussion. No rales, rhonchi or wheezes noted. No increased work of breathing, no retractions or nasal flaring. Abdomen/GI: Soft, non-tender, with normal bowel sounds. No distension or tympany. No guarding or rebound. No evidence of tenderness throughout. Back: No spinal tenderness. No costovertebral tenderness. Full range of motion. MS/ Extremity: Pulses equal, no cyanosis. Neurovascular intact. Full, normal range of motion. Neuro: Awake and alert, GCS 15, oriented to person, place, time, and situation. Cranial nerves II-XII grossly intact. Motor strength 5/5 in all extremities. Sensory grossly intact. Cerebellar exam normal. Normal gait. Psych: Awake, alert, with orientation to person, place and time. Behavior, mood, and affect are within normal limits. 13:55 Skin: Appearance: normal except for affected area, consistent with allergic dermatitis, macular erythema with pruritis, no breaks in the skin. Vital Signs: 12:50 BP 146 / 70; Pulse 93; Resp 16; Temp 97.5; Pulse Ox 98% on R/A; Weight 70.31 kg; Height la1 5 ft. 3 in. (160.02 cm); 12:50 Body Mass Index 27.46 (70.31 kg, 160.02 cm) la1 MDM: 12:56 Patient medically screened. snw 14:16 Data reviewed: vital signs, nurses notes. Data interpreted: Pulse oximetry: on room air snw is 98 %. Interpretation: normal. Counseling: I had a detailed discussion with the patient and/or guardian regarding: the historical points, exam findings, and any diagnostic results supporting the discharge/admit diagnosis, the presence of at least one elevated blood pressure reading (>120/80) during this emergency department visit, the need for outpatient follow up, for definitive care, to return to the emergency department if symptoms worsen or persist or if there are any questions or concerns that arise at home. Special discussion: Based on the history and exam findings, there is no indication for further emergent testing or inpatient evaluation. I discussed with the patient/guardian the need to see the primary care provider for further evaluation of the symptoms. Administered Medications: 13:13 Drug: Atarax 50 mg Route: PO; tw2 13:21 Follow up: Response: No adverse reaction tw2 13:13 Drug: Pepcid 20 mg Route: PO; tw2 13:21 Follow up: Response: No adverse reaction tw2 13:13 Drug: Ativan 1 mg Route: PO; tw2 13:21 Follow up: Response: No adverse reaction tw2 Disposition: 15:16 Co-signature as Attending Physician, Shlomo Harvey MD. rn Disposition: 05/03/19 13:06 Discharged to Home. Impression: Allergic contact dermatitis. - Condition is Stable. - Discharge Instructions: Allergies, Adult. - Prescriptions for Vistaril 25 mg Oral capsule - take 1 capsule by ORAL route 3 times per day; 45 capsule. Pepcid 20 mg Oral Tablet - take 1 tablet by ORAL route once daily; 20 tablet. - Medication Reconciliation Form, Thank You Letter, Antibiotic Education, Prescription Opioid Use form. - Follow up: Alannah Pimentel DO; When: 1 - 2 days; Reason: Recheck today's complaints, Continuance of care, Re-evaluation by your physician. Follow up: Emergency Department; When: As needed; Reason: Trouble breathing, Worsening of condition. Signatures: Marylu Saab, GLOVE FORMER-C GLOVE FORMER-Csnw Shlomo Harvey MD MD rn Attema, Lee, RN RN la1 Amanda Caballero RN RN tw2 Corrections: (The following items were deleted from the chart) 13:24 13:06 05/03/2019 13:06 Discharged to Home. Impression: Allergic contact dermatitis. tw2 Condition is Stable. Forms are Medication Reconciliation Form, Thank You Letter, Antibiotic Education, Prescription Opioid Use. Follow up: Alannah Pimentel; When: 1 - 2 days; Reason: Recheck today's complaints, Continuance of care, Re-evaluation by your physician. Follow up: Emergency Department; When: As needed; Reason: Trouble breathing, Worsening of condition. snw
--- NOTE | 2019-05-03 13:06 | ER ---
Nurse's Notes [facility] Name: Ning Coffey Age: 73 yrs Sex: Female : 1945 Arrival Date: 05/03/2019 Time: 12:47 Bed 25 Private MD: Alannah Pimentel H Diagnosis: Allergic contact dermatitis Presentation: 05/03 12:50 Presenting complaint: Patient states: Itchy rash all over body since yesterday. la1 Transition of care: patient was not received from another setting of care. Onset of symptoms was May 03, 2019. Risk Assessment: Do you want to hurt yourself or someone else? Patient reports no desire to harm self or others. Initial Sepsis Screen: Does the patient meet any 2 criteria? No. Patient's initial sepsis screen is negative. Does the patient have a suspected source of infection? No. Patient's initial sepsis screen is negative. Care prior to arrival: None. 12:50 Method Of Arrival: Ambulatory la1 12:50 Acuity: DANIELLE 3 la1 Historical: - Allergies: 12:50 Levaquin; la1 12:50 Sulfa (Sulfonamide Antibiotics); la1 - Home Meds: 13:23 Omeprazole Oral as needed [Active]; Xarelto 15 mg Oral tab daily [Active]; tw2 hydrocodone-acetaminophen 10-325 mg Oral tab 1 tab every 4 hours for Pain [Active]; carbidopa-levodopa 25-100 mg Oral tab [Active]; Carbidopa-Levodopa Oral [Active]; - PMHx: 12:50 CVA; Parkinsons; la1 - PSHx: 13:23 Hysterectomy; splenectomy; Tonsillectomy; tw2 - Immunization history:: Adult Immunizations up to date. - Social history:: Smoking status: Patient/guardian denies using tobacco. - Ebola Screening: : No symptoms or risks identified at this time. Screenin:22 Abuse screen: Denies threats or abuse. Nutritional screening: No deficits noted. tw2 Tuberculosis screening: No symptoms or risk factors identified. Fall Risk None identified. Assessment: 13:21 General: Appears in no apparent distress. well groomed, Behavior is agitated, "i just tw2 keep itching". Pain: Denies pain. Neuro: Level of Consciousness is awake, alert, obeys commands, Oriented to person, place, time, situation. Cardiovascular: Patient's skin is warm and dry. Respiratory: Airway is patent Respiratory effort is even, unlabored, Respiratory pattern is regular, symmetrical. GI: No signs and/or symptoms were reported involving the gastrointestinal system. : No signs and/or symptoms were reported regarding the genitourinary system. EENT: No signs and/or symptoms were reported regarding the EENT system. Derm: Reports itching. Musculoskeletal: Range of motion: intact in all extremities. 13:24 Reassessment: Patient appears in no apparent distress at this time. Patient and/or tw2 family updated on plan of care and expected duration. Pain level reassessed. Patient is alert, oriented x 3, equal unlabored respirations, skin warm/dry/pink. Vital Signs: 12:50 BP 146 / 70; Pulse 93; Resp 16; Temp 97.5; Pulse Ox 98% on R/A; Weight 70.31 kg; Height la1 5 ft. 3 in. (160.02 cm); 12:50 Body Mass Index 27.46 (70.31 kg, 160.02 cm) la1 ED Course: 12:47 Patient arrived in ED. mr 12:47 Alannah Pimentel DO is Private Physician. mr 12:50 Triage completed. la1 12:50 Arm band placed on left wrist. la1 12:52 Bed in low position. Call light in reach. tw2 12:55 Marylu Saab FNP-C [facility]. snw 12:55 Shlomo Harvey MD is Attending Physician. snw 13:05 Alannah Pimentel DO is Referral Physician. snw 13:09 Amanda Caballero, CHIDI is Primary Nurse. tw2 13:23 No provider procedures requiring assistance completed. Patient did not have IV access tw2 during this emergency room visit. Administered Medications: 13:13 Drug: Atarax 50 mg Route: PO; tw2 13:21 Follow up: Response: No adverse reaction tw2 13:13 Drug: Pepcid 20 mg Route: PO; tw2 13:21 Follow up: Response: No adverse reaction tw2 13:13 Drug: Ativan 1 mg Route: PO; tw2 13:21 Follow up: Response: No adverse reaction tw2 Outcome: 13:06 Discharge ordered by . jsesy 13:23 Discharged to home ambulatory, with significant other. tw2 13:23 Condition: stable 13:23 Discharge instructions given to patient, significant other, Instructed on discharge instructions, follow up and referral plans. medication usage, Demonstrated understanding of instructions, follow-up care, medications, Prescriptions given X 2. 13:24 Patient left the ED. tw2 Signatures: Marylu Saab, SIEVE GRADER TENDER-C SIEVE GRADER TENDER-Csnw Sofia Toribio Lee, RN RN la1 Amanda Caballero, RN RN tw2
[2019-05-03] MEDS ORDERED: FAMOTIDINE 20 MG TAB ONE (13:10)
[2019-05-03] MEDS ORDERED: hydrOXYzine HCl 25 MG TAB ONE (13:10)
[2019-05-03] MEDS ORDERED: LORAZEPAM 1 MG TABLET ONE (13:10)
[2019-05-03 14:30] VITALS: BP 146/70; TEMP 97.5; O2SAT 98
== END 2019-05-03 13:24 | disposition home or self-care (01) ==
LOC: ER 12:44
DX: L23.9 Allergic contact dermatitis, unspecified cause (principal); Z86.73 Personal history of transient ischemic attack (TIA), and cerebral infarction without residual deficits; G20 Parkinson's disease; Z79.01 Long term (current) use of anticoagulants; Z88.1 Allergy status to other antibiotic agents; Z88.2 Allergy status to sulfonamides
CPT/HCPCS: 99283

== ENCOUNTER 2019-05-04 15:42 | Emergency (ER) | payer OTHER, MEDICARE ==
--- OUTSIDE RECORDS SUMMARY | 2019-05-04 15:46 | XMS REPORT | Continuity of Care Document ---
:1945 Author Organization [employer] Care Team Providers Name Role Phone [facility] [employer] Unavailable Unavailable Problems Problem Status Onset Classification Date Comments Source Date Reported CVA Active 07/02/[address] SARAH Active 07/02/20 [facility] [address] ACUTE STROKE Active 07/02/[address] Atrial Active Problem 02/07/2019 [facility] fibrillation Neuro DVT (Confirmed) Resolved Problem 02/07/2019 [facility] Neuro,[facility] Parkinson Active Problem 02/07/2019 [facility] Neuro Atrial Active Problem 03/11/2019 [facility] fibrillation Neuro (disorder) Deep venous Resolved Problem 03/11/2019 [facility] thrombosis Neuro (disorder) Parkinson's Active Problem 03/11/2019 [facility] disease Neuro (disorder) CVA Active [facility] [place] Medications Medication Details Route Status Patient Ordering Order Source Instructions Provider Date Carbidopa 25 MG 1 tab, PO, TID, # Active 03/08/ [facility] / Levodopa 100 90 tab, 4 2018 Neuro MG Oral Tablet Refill(s), Pharmacy: [email or web address] [id number] Esomeprazole 40 40 mg=1 cap, PO, Active 07/20/ [facility] MG Enteric Daily, 0 2017 Neuro Coated Capsule Refill(s) Carbidopa 25 MG 1 tab, PO, TID, # Active 07/20/ [facility] / Levodopa 100 90 tab, 4 2017 Neuro MG Oral Tablet Refill(s), Pharmacy: [email or web address] [id number] Warfarin 7.5 mg, 1 tab, Inactive 07/07/ [facility] Route: PO, Drug 2013 Medical form: [...] 325 mg 325 mg=1 tab, PO, Active [facility] tablet Daily, # 100 tab, 2014 Medical 3 Refill(s) Center warfarin 7.5 mg 7.5 mg, PO, Q5PM, Active [facility] oral tablet # 5 tab, 0 2013 Medical Refill(s) Center OLANZapine 2.5 2.5 mg=1 tab, PO, Active [facility] mg oral tablet Q6H, Agitation, 0 2013 Medical Refill(s) Center 0.4 mg=1 tab, PO, Active [facility] Multivitamins Daily, 0 2013 Medical with Folic Acid Refill(s) Center 0.4 mg oral tablet Folic Acid 1 MG 1 mg=1 tab, PO, Active [facility] Oral Tablet Daily, 0 2013 Medical Refill(s) Center Docusate Sodium 100 mg=1 cap, PO, Active [facility] 100 MG Oral Q12H, 0 Refill(s) 2013 Medical Capsule Center benzonatate 100 100 mg=1 cap, PO, Active [facility] mg oral capsule TID, Cough, 0 2013 Medical Refill(s) Center Acetaminophen 650 mg=2 tab, PO, Active [facility] 325 MG Oral Q4H, Pain 2013 Medical Tablet 1-3/Temp > 99.5 Center F, 0 Refill(s) Warfarin 5 mg, 1 tab, Inactive [facility] Route: PO, Drug 2013 Medical form: TAB, Q5PM, Center Dosing Weight 83, kg, Start date: 07/06/14 17:00:00, Duration: 1 doses or times, Stop date: 07/06/14 17:00:00Notes: Nurse to ensure documentation of patient education per anticoagulation policy. Avoid large intake of vitamin-K containing foods diet. (Same As: Coumadin) cefpodoxime 100 mg, Route: Inactive [facility] PO, Drug form: 2013 Medical TAB, [id number], Center Dosing Weight 83, kg, Priority: NOW, Start date: 07/06/14 11:17:00, Duration: 7 day, Stop date: 07/12/14 23:17:00 benzonatate 100 mg, 1 cap, No Longer [facility] Route: PO, Drug Active 2013 Medical form: CAP, TID, Center Dosing Weight 83, kg, PRN Cough, Start date: 07/06/14 2:28:00, Duration: 30 day, Stop date: 08/05/14 2:27:00Notes: (Same As: Simran eRd) "Do Not Crush" Mag-Ox 400 800 mg, 2 tab, Inactive [facility] Route: PO, Drug 2013 Medical form: TAB, ONCE, Center Dosing Weight 83, kg, Start date: 07/05/14 15:55:00, Stop date: 07/05/14 15:55:00Notes: (Same as: Mag-Ox 400) Magnesium oxide [id number] elemental magnesium Dose=____mg magnesium oxide (___mg elemental magnesium) Lactated Ringers 1,000 mL, Rate: Inactive [facility] IV 1000 mL 100 ml/hr, Infuse 2013 Medical over: 10 hr, Center Route: IV, Dosing Weight 83 kg, Total Volume: 1,000, Start date: 07/05/14 11:26:00, Duration: 30 day, Stop date: 08/04/14 11:25:00 Lactated Ringers 1,000 mL, Rate: No Longer [facility] IV 1,000 mL 100 ml/hr, Infuse Active 2013 Medical over: 10 hr, Center Route: IV, Dosing Weight 83 kg, Total Volume: 1,000, Priority: STAT, Start date: 07/05/14 10:06:00, Duration: 30 day, Stop date: 08/04/14 10:05:00 Magnesium 2 gm, 50 mL, Inactive [facility] Sulfate Route: IVPB, Drug 2013 Medical [...] 9:23:00 Rocephin 1 gm, Route: No Longer [place] IVPB, Drug form: Active 2013 Medical PDR/INJ, [id number], Center Dosing Weight 83, kg, Start date: 07/05/14 8:00:00, Duration: 30 day, Stop date: 08/03/14 8:00:00Notes: Use with 100ml NS mini-bag PLUS and infuse over 30 min ZyPREXA 2.5 mg, 1 tab, Inactive [place] Route: PO, Drug 2013 Medical form: TAB, Center Bedtime, Start date: 07/04/14 21:00:00, Duration: 1 doses or times, Stop date: 07/04/14 21:00:00Notes: (Same as: ZyPREXA) Geodon 5 mg, Route: IM, Inactive [place] Q4H, Dosing 2013 Medical Weight 83, kg, Center Start date: 07/04/14 21:00:00, Duration: 30 day, Stop date: 08/03/14 20:00:00 ZyPREXA 2.5 mg, 1 tab, No Longer [facility] Route: PO, Drug Active 2013 Medical form: TAB, Q6H, Center PRN Agitation, Start date: 07/04/14 17:08:00, Duration: 30 day, Stop date: 08/03/14 17:07:00Notes: (Same as: ZyPREXA) folic acid 1 mg 1 mg, 1 tab, No Longer [facility] oral tablet Route: PO, Drug Active 2013 Medical form: TAB, Daily, Center Start date: 07/04/14 17:00:00, Duration: 30 day, Stop date: 08/03/14 9:00:00Notes: (Same as: Folvite) Sodium Chloride 250 mL, Rate: 999 Inactive [place] 0.9% IV 250 mL ml/hr, Infuse 2013 [...] CORRECTION 8.6 mg, 1 tab, No Longer [facility] Route: PO, Drug Active 2013 Medical [...] 100 mg, 1 tab, No Longer [facility] Route: PO, Drug Active 2013 Medical form: TAB, Daily, Center Dosing Weight 83, kg, Start date: 07/03/14 12:00:00, Duration: 30 day, Stop date: 08/02/14 9:00:00Notes: (Same As: Vitamin B1) 1 tab, Route: PO, No Longer [facility] Multivitamins Drug Form: TAB, Active 2013 Medical [...] Posiflush) pneumococcal 0.5 ml, Route: Inactive [facility] capsular IM, Drug Form: 2013 Medical [...] Influenza Virus 0.5 mL, Route: Inactive [facility] Vaccine, IM, Drug Form: 2013 Medical Inactivated SUSP, Daily, [place] [id number] Start date: 07 (H3N2)-like 07/03/14 9:00:00, virus Duration: 1 doses ([id number] or times, Stop 007 [employer] [id number]) date: 07/03/14 strain / 9:00:00Notes: Influenza Virus (Same as: Fluzone Vaccine, Quadrivalent) Inactivated L-Nnyqnkow-05-20 07, IVR-148 (H1N1) strain / Influenza Virus Vaccine, Inactivated, N-Uqlrvkq-7 -lik Docusate 100 mg, 1 cap, No Longer [facility] Route: PO, Drug Active 2013 Medical form: CAP, Q12H, Center Dosing Weight 83, kg, Start date: 07/03/14 9:00:00, Duration: 30 day, Stop date: 08/01/14 21:00:00Notes: (Same as: Colace) (Do Not Crush) Diltiazem 20 mg, 4 mL, Inactive [facility] Route: IVP, Drug 2013 Medical form: INJ, ONCE, Center Dosing Weight 83, kg, PRN Other -See Comment, Start date: 07/03/14 8:58:00Notes: (Same as: Cardizem) magnesium 2 gm, 50 mL, Inactive [facility] sulfate Route: IVPB, Drug 2013 Medical form: INJ, Q2H, Center Start date: 07/03/14 6:00:00, Duration: 2 doses or times, Stop date: 07/03/14 8:00:00 calcium 3,000 mg, 30 mL, Inactive [facility] gluconate + Route: IV, ONCE, 2013 Medical Sodium Chloride Start date: Center 0.9% IV 100 mL 07/03/14 6:00:00, Stop date: 07/03/14 6:00:00 Sodium Chloride 500 mL, 500 Inactive [facility] 0.154 MEQ/ML ml/hr, Infuse 2013 Medical [...] Acetaminophen 650 mg, 2 tab, No Longer [facility] Route: PO, Drug Active 2013 Medical form: TAB, Q4H, Center Dosing Weight 79.545, kg, PRN Pain 1-3/Temp > 99.5 F, Start date: 07/02/14 22:10:00, Duration: 30 day, Stop date: 08/01/14 22:09:00Notes: Do not exceed 4 gm/day. (Same as: Tylenol) Bisacodyl 10 mg, 1 supp, No Longer [facility] Route: [place], Drug Active 2013 Medical form: SUPP, Center Daily, Dosing Weight 79.545, kg, PRN Constipation, Start date: 07/02/14 22:10:00, Duration: 30 day, Stop date: 08/01/14 22:09:00Notes: (Same As: Dulcolax, Bisco-Lax) Nicardipine 40 mg, 200 mL, No Longer [place] Rate: Start at 5 Active 2013 Medical mg/hr., Dosing Center Weight 79.545, kg, Route: IV, Total Volume: 200, Titrate to maintain SBP 140-180mmHg., Start Date: 07/02/14 22:10:00, Duration: 30 day, Stop date: 08/01/14 22:09:00, Replace Every: 24 hrNotes: Same as: Cardene Concentration: (0.2 mg /1 ml ) Enalapril 0.625 mg, 0.5 mL, No Longer [place] Route: IVP, Drug Active 2013 Medical form: INJ, Q6H, Center Dosing Weight 79.545, kg, PRN Hypertension, Start date: 07/02/14 22:10:00, Duration: 30 day, Stop date: 08/01/14 22:09:00, For SBP > 180mmHg and/or DBP > 105mmHgNotes: (Same as: Vasotec-IV) Labetalol 10 mg, 2 mL, No Longer [place] Route: IVP, Drug Active 2013 Medical form: [...] Zofran 4 mg, 2 mL, No Longer [facility] Route: IVP, Drug Active 2013 Medical form: INJ, Q8H, Center Dosing Weight 79.545, kg, PRN as needed for nausea/vomiting, Priority: STAT, Start date: 07/02/14 21:57:00, Duration: 30 day, Stop date: 08/01/14 21:56:00Notes: (Same as: Zofran) Zofran 4 mg, Route: IVP, Inactive [facility] Drug form: INJ, 2013 Medical ONCE, Dosing Center Weight 79.545, kg, Priority: STAT, Start date: 07/02/14 21:54:00, Stop date: 07/02/14 21:54:00 iodixanol 125 mL, Route: Inactive [facility] IVP, Drug Form: 2013 Medical SOLN, Dosing Center Weight 79.545, kg, ONCALL, STAT, Start date: 07/02/14 21:53:00, Duration: 1 doses or times, Dose=2.2ml/kg, Max wlfa=320va -- "To be infused by Radiology Staff ONLY"Special Instructions: Dose=2.2ml/kg, Max qlka=[id number] -- "To be infused by Radiology Staff ONLY" aspirin 0 Refill(s) No Longer [facility] Active 2013 Medical Center Saline Flush 10 mL, Route: No Longer [facility] 0.9% IVP, Drug Form: Active 2013 Medical INJ, kg, PRN, PRN [place] Flush, Start date: 07/02/14 21:34:00, Duration: 30 day, Stop date: 08/01/14 20:33:00Notes: (Same as: BD Posiflush) Allergies, Adverse Reactions, Alerts Substance Category Reaction Severity Reaction Status Date Comments Source type Reported sulfa drugs Assertion Drug Active [facility] allergy Neuro Immunizations Immunization Date Given Site Status Last Comments Source Updated pneumococcal 07/04/2014 Left completed [facility] 23-valent vaccine deltoid Neuro,[facility] influenza virus 07/04/2014 Right completed [facility] vaccine, deltoid Neuro, inactivated [facility] Results Order Name Results Value Reference Date Interpretation Comments Source Range URINE AND Occult Bld Negative Negative 07/07 [facility] STOOL Stl (07/07/14 3:42 PM) [facility] ELECTROLYTE AGAP 14.5 10.0 - 07/07 [facility] S 20.0 [facility] ELECTROLYTE Potassium Lvl 4.5 3.5 - 5.1 07/07 [facility] ELECTROLYTE Sodium Lvl 142 135 - 145 07/07 [facility] ELECTROLYTE Calcium Lvl 8.6 8.5 - 10.5 07/07 [facility] ELECTROLYTE CO2 22 24 - 32 07/07 [facility] ELECTROLYTE Chloride Lvl 110 95 - 109 07/07 [facility] ELECTROLYTE eGFR 58 07/07 <sup>1</sup>R [...] ELECTROLYTE Creatinine 1.0 0.5 - 1.4 07/07 [facility] S Lvl [facility] ELECTROLYTE BUN 23 7 - 22 07/07 [facility] ELECTROLYTE Glucose Lvl 97 70 - 99 07/07 <sup>4</sup>I nterpretive Medical Data: Adult Center reference range values reflect the clinical guidelines
of the [place] [employer]. HEMATOLOGY PT 12.7 12.0 - 07/07 [place] 14.7 [facility] HEMATOLOGY INR 0.95 0.85 - 07/07 <sup>10</sup> [facility] 1.17 Interpretive Medical Data: Center RECOMMENDED RANGES FOR PROTIME INR:
2.0-3.0 for most medical and surgical thromboemboli c states.
2.5-3.5 for artificial heart valves and recurrent embolism.<br/ >
INR SHOULD BE USED ONLY FOR PATIENTS ON STABLE ANTICOAGULANT THERAPY. HEMATOLOGY RDW 13.8 11.5 - 07/07 14.5 [facility] HEMATOLOGY RBC 3.59 4.20 - 07/07 [place] 5.40 /2013 [facility] HEMATOLOGY WBC 12.1 3.7 - 10.4 07/07 [facility] HEMATOLOGY Hgb 11.5 12.0 - 07/07 16.0 [facility] HEMATOLOGY Hct 36.0 36.0 - 07/07 48.0 [facility] HEMATOLOGY MCV 100.3 80.0 - 07/07 [facility] 98.0 /2013 [facility] HEMATOLOGY MCH 32.0 27.0 - 07/07 31.0 [facility] HEMATOLOGY MCHC 31.9 32.0 - 07/07 [place] 36.0 /2013 [facility] HEMATOLOGY MPV 11.4 7.4 - 10.4 07/07 [facility] HEMATOLOGY Platelet 175 133 - 450 07/07 [facility] HEMATOLOGY Monocytes 14.9 2.0 - 12.0 07/07 [facility] HEMATOLOGY Eosinophils 3.5 0.0 - 4.0 07/07 [facility] HEMATOLOGY Basophils 0.4 0.0 - 1.0 07/07 [facility] HEMATOLOGY Lymphocytes # 3.9 1.0 - 5.5 07/07 [facility] HEMATOLOGY Monocytes # 1.8 0.0 - 0.8 07/07 [facility] HEMATOLOGY Segs-Bands # 5.9 1.5 - 8.1 07/07 [facility] HEMATOLOGY Eosinophils # 0.4 0.0 - 0.5 07/07 [facility] HEMATOLOGY Macrocyte 1+ None Seen 07/07 [facility] *ABN* /2013 Medical (07/07/14 1:00 AM) [place] HEMATOLOGY Lymphocytes 32.6 20.0 - 07/07 [place] 40.0 /2013 [facility] HEMATOLOGY Segs 48.6 45.0 - 07/07 [facility] 75.0 [facility] HEMATOLOGY PT 13.9 12.0 - 07/07 [facility] 14.7 [facility] HEMATOLOGY INR 1.07 0.85 - 07/07 <sup>11</sup> [facility] 1.17 Interpretive Medical Data: Center RECOMMENDED RANGES FOR PROTIME INR:
2.0-3.0 for most medical and surgical thromboemboli c states.
2.5-3.5 for artificial heart valves and recurrent embolism.<br/ >
INR SHOULD BE USED ONLY FOR PATIENTS ON STABLE ANTICOAGULANT THERAPY. HEMATOLOGY PTT 35.0 22.9 - 07/07 <sup>13</sup> [facility] 35.8 Interpretive Medical Data: [facility] Center Therapeutic Range: 57 - 92 [facility] ANEMIA Folate Lvl 14.3 >=3.0 07/06 [facility] ng/mL [facility] ANEMIA Vitamin B12 908 254 - 1320 07/06 [facility] Lvl [facility] ANEMIA UIBC 245 110 - 370 07/06 [facility] ANEMIA % [place] 18 12 - 57 07/06 [facility] ANEMIA Iron 52 30 - 160 07/06 [facility] ANEMIA TIBC 297 228 - 428 07/06 [facility] ANEMIA Transferrin 227 212 - 360 07/06 [facility] HEMATOLOGY Monocytes 15.2 2.0 - 12.0 07/06 [facility] HEMATOLOGY Eosinophils # 0.3 0.0 - 0.5 07/06 [facility] HEMATOLOGY Monocytes # 1.6 0.0 - 0.8 07/06 [facility] HEMATOLOGY Basophils 0.4 0.0 - 1.0 07/06 [facility] HEMATOLOGY Eosinophils 3.2 0.0 - 4.0 07/06 [facility] HEMATOLOGY Lymphocytes # 3.4 1.0 - 5.5 07/06 [facility] HEMATOLOGY Segs-Bands # 5.3 1.5 - 8.1 07/06 [facility] HEMATOLOGY Segs 49.6 45.0 - 07/06 [facility] 75.0 [facility] HEMATOLOGY Plt Morph Normal 07/06 [facility] (07/06/14 2:30 AM) [facility] HEMATOLOGY Lymphocytes 31.6 20.0 - 07/06 [place] 40.0 [facility] HEMATOLOGY RBC Morph Normal 07/06 [facility] (07/06/14 2:30 AM) [facility] HEMATOLOGY WBC 10.6 3.7 - 10.4 07/06 [facility] HEMATOLOGY MCV 97.8 80.0 - 07/06 [place] 98.0 /2013 [facility] HEMATOLOGY Hct 37.0 36.0 - 07/06 [place] 48.0 [facility] HEMATOLOGY Hgb 12.1 12.0 - 07/06 [place] 16.0 [facility] HEMATOLOGY RBC 3.78 4.20 - 07/06 [place] 5. [facility] HEMATOLOGY MCHC 32.8 32.0 - 07/06 [place] 36.0 [facility] HEMATOLOGY MCH 32.1 27.0 - 07/06 [place] 31.0 [facility] HEMATOLOGY RDW 13.9 11.5 - 07/06 [place] 14. [facility] HEMATOLOGY MPV 12.2 7.4 - 10.4 07/06 [facility] HEMATOLOGY Platelet 167 133 - 450 07/06 [facility] CARDIAC Troponin-T <0.010 0.000 - 07/05 [facility] ENZYMES 0.100 [facility] CARDIAC Total CK 123 12 - 191 07/05 [facility] CARDIAC Troponin-I 0.02 0.00 - 07/05 [place] ENZYMES 0. [facility] CARDIAC CK MB Index 1.0 0.0 - 2.5 07/05 [place] ENZYMES [facility] CARDIAC CK MB 1.2 0.5 - 3.6 07/05 [facility] HEMATOLOGY Basophils 0.7 0.0 - 1.0 07/05 [facility] HEMATOLOGY Eosinophils 2.4 0.0 - 4.0 07/05 [facility] HEMATOLOGY Segs-Bands # 5.3 1.5 - 8.1 07/05 [facility] HEMATOLOGY Lymphocytes # 2.1 1.0 - 5.5 07/05 [facility] HEMATOLOGY Monocytes # 1.4 0.0 - 0.8 07/05 [facility] HEMATOLOGY Eosinophils # 0.2 0.0 - 0.5 07/05 [facility] HEMATOLOGY Basophils # 0.1 0.0 - 0.2 07/05 [facility] HEMATOLOGY Segs 58.2 45.0 - 07/05 [place] 75.0 [facility] HEMATOLOGY Monocytes 15.5 2.0 - 12.0 07/05 [facility] HEMATOLOGY Lymphocytes 23.2 20.0 - 07/05 [place] 40.0 [facility] HEMATOLOGY MCHC 33.0 32.0 - 07/05 [place] 36.0 [facility] HEMATOLOGY RDW 14.0 11.5 - 07/05 [place] 14. [facility] HEMATOLOGY WBC 9.1 3.7 - 10.4 07/05 [facility] HEMATOLOGY RBC 3.13 4.20 - 07/05 [place] 5.40 [facility] HEMATOLOGY Hgb 10.1 12.0 - 07/05 [place] 16.0 [facility] HEMATOLOGY Platelet 142 133 - 450 07/05 [facility] HEMATOLOGY MPV 12.1 7.4 - 10.4 07/05 [facility] HEMATOLOGY Hct 30.7 36.0 - 07/05 [place] 48.0 [facility] HEMATOLOGY MCH 32.3 27.0 - 07/05 [place] 31.0 [facility] HEMATOLOGY MCV 98.0 80.0 - 07/05 [place] 98.0 [facility] HEMATOLOGY Basophils # 0.1 0.0 - 0.2 07/05 [facility] CHEM PANEL Magnesium Lvl 1.6 1.8 - 2.4 07/05 [facility] CHEM PANEL Phosphorus 3.7 2.5 - 4.5 07/05 [facility] CHEM PANEL eGFR 76 07/05 [...] PANEL CO2 25 24 - 32 07/05 [facility] CHEM PANEL Calcium Lvl 8.3 8.5 - 10.5 07/05 [facility] CHEM PANEL Sodium Lvl 145 135 - 145 07/05 [facility] CHEM PANEL BUN 15 7 - 22 07/05 [facility] CHEM PANEL Creatinine 0.8 0.5 - 1.4 07/05 [facility] CHEM PANEL Chloride Lvl 112 95 - 109 07/05 [facility] CHEM PANEL Potassium Lvl 4.5 3.5 - 5.1 07/05 [facility] CHEM PANEL Glucose Lvl 89 70 - 99 07/05 <sup>5</sup>I nterpretive Medical Data: Adult Center reference range values reflect the clinical guidelines
of the [place] [employer]. CHEM PANEL AGAP 12.5 10.0 - 07/05 [facility] 20.0 [facility] DRUG SCREEN U Phencyc Scr Negative Negative 07/05 [facility] *NA* [facility] (07/04/14 7:50 PM) Center DRUG SCREEN UDS Note See Note 8 07/05 <sup>8</sup>I [facility] (07/04/14 7:50 PM) nterpretive Medical Data: Drugs Center reported as positive have not been confirmed by a second
ga thod and should be used for medical [...] DRUG SCREEN U Benzodia Positive Negative 07/05 [facility] *ABN* Medical (07/04/14 7:50 PM) Center DRUG SCREEN U Cannab Scr Negative Negative 07/05 [facility] *NA* Medical (07/04/14 7:50 PM) Center DRUG SCREEN U Cocaine Scr Negative Negative 07/05 [facility] *NA* Medical (07/04/14 7:50 PM) Center DRUG SCREEN U Opiate Scr Negative Negative 07/05 [place] *NA* Medical (07/04/14 7:50 PM) Center DRUG SCREEN U Amph Scr Negative Negative 07/05 [facility] *NA* [facility] (07/04/14 7:50 PM) Center URINE AND UA <=1.0 0.1 - 1.0 07/05 [facility] STOOL Urobilinogen mg/dL [facility] URINE AND UA RBC 1 0 - 2 07/05 [facility] URINE AND UA Mucus Few /LPF None Seen 07/05 [facility] STOOL /LPF [facility] URINE AND UA Hyal Cast 1 0 - 2 07/05 [facility] URINE AND UA WBC 9 0 - 5 07/05 [facility] URINE AND UA Glucose Negative Negative 07/05 [facility] STOOL mg/dL mg/dL [facility] URINE AND UA Ketones Negative Negative 07/05 [facility] STOOL mg/dL mg/dL [facility] URINE AND UA pH 5.0 5.0 - 8.0 07/05 [facility] STOOL Medical [facility] URINE AND UA Protein Negative Negative 07/05 [facility] mg/dL mg/dL [facility] URINE AND UA Spec Grav 1.010 <=1.030 07/05 [facility] URINE AND UA Leuk Est Moderate Negative 07/05 [facility] *ABN* [facility] (07/04/14 7:50 PM) [facility] URINE AND UA Sq Epi Few /LPF Few /LPF 07/05 [facility] URINE AND UA Bili Negative Negative 07/05 [facility] *NA* [facility] (07/04/14 7:50 PM) [facility] URINE AND UA Blood Negative Negative 07/05 [facility] (07/04/14 7:50 PM) [facility] URINE AND UA Nitrite Negative Negative 07/05 [facility] (07/04/14 7:50 PM) [facility] URINE AND UA Color Yellow Yellow 07/05 [facility] *NA* [facility] (07/04/14 7:50 PM) [facility] URINE AND UA Turbidity Clear Clear 07/05 [facility] (07/04/14 7:50 PM) [facility] CHEM PANEL Lactic Acid 1.0 0.5 - 2.2 07/04 [facility] CHEM PANEL Globulin 2.5 2.0 - 4.0 07/04 [facility] CHEM PANEL A/G Ratio 1.3 0.7 - 1.6 07/04 [facility] CHEM PANEL Bili Indirect 0.3 0.0 - 1.0 07/04 [facility] CHEM PANEL Total Protein 5.7 6.4 - 8.4 07/04 [facility] CHEM PANEL Alk Phos 61 39 - 136 07/04 [facility] CHEM PANEL Albumin Lvl 3.2 3.5 - 5.0 07/04 [facility] CHEM PANEL ALT 21 0 - 65 07/04 [facility] CHEM PANEL AST 16 0 - 37 07/04 [facility] CHEM PANEL Bili Direct 0.1 0.0 - 0.3 07/04 [facility] CHEM PANEL Bili Total 0.4 0.2 - 1.3 07/04 [facility] CHEM PANEL Phosphorus 3.3 2.5 - 4.5 07/04 [facility] CHEM PANEL Magnesium Lvl 1.8 1.8 - 2.4 07/04 [facility] CHEM PANEL eGFR 66 07/04 [...] PANEL AGAP 11.5 10.0 - 07/04 . [facility] CHEM PANEL Calcium Lvl 8.3 8.5 - 10.5 07/04 [facility] CHEM PANEL Sodium Lvl 144 135 - 145 07/04 [facility] CHEM PANEL Potassium Lvl 4.5 3.5 - 5.1 07/04 [facility] CHEM PANEL Chloride Lvl 113 95 - 109 07/04 [facility] CHEM PANEL CO2 24 24 - 32 07/04 [facility] CHEM PANEL Glucose Lvl 107 70 - 99 07/04 <sup>6</sup>I nterpretive Medical Data: Adult Center reference range values reflect the clinical guidelines
of the [place] [employer]. CHEM PANEL BUN 12 7 - 22 07/04 [facility] CHEM PANEL Creatinine 0.9 0.5 - 1.4 07/04 [facility] HEMATOLOGY INR 1.14 0.85 - 07/04 <sup>12</sup> [facility] 09.23 Interpretive Medical Data: Center RECOMMENDED RANGES FOR PROTIME INR:
2.0-3.0 for most medical and surgical thromboemboli c states.
2.5-3.5 for artificial heart valves and recurrent embolism.<br/ >
INR SHOULD BE USED ONLY FOR PATIENTS ON STABLE ANTICOAGULANT THERAPY. HEMATOLOGY PTT 26.0 22.9 - 07/04 <sup>14</sup> [facility] 35.8 /2013 Interpretive Medical Data: [facility] Therapeutic Range: 57 - 92 Seconds HEMATOLOGY PT 14.7 12.0 - 07/04 [facility] 14. [facility] PARATHYROID Ca Norm WB 1.06 1.05 - 07/04 [facility] PROFILE 10.01 [facility] PARATHYROID Ca Ion WB 1.06 1.05 - 07/[address] [facility] 10.01 [facility] DRUG SCREEN UDS Note See Note 9 07/03 <sup>9</sup>I [facility] *NA* /2013 nterpretive Medical (07/03/14 10:50 AM) Data: Drugs Center reported as positive have not been confirmed by a second
ga thod and should be used for medical [...] LIPIDS CHD Risk 1.95 3.90 - 07/03 [facility] 5.80 [facility] LIPIDS VLDL 8 07/03 [facility] LIPIDS LDL 72 <=99 mg/dL 07/03 [facility] (Calculated) [facility] LIPIDS Trig 42 <=149 07/03 [facility] mg/dL [facility] LIPIDS Chol 164 <=199 07/03 [facility] mg/dL [facility] LIPIDS HDL 84 >=61 mg/dL 07/03 <sup>7</sup>R esult Medical Comment: Center Specimen Slightly Hemolyzed. SPECIAL Hgb A1C 4.9 <=5.6 % 07/03 [facility] CHEMISTRY [facility] URINE AND UA <=1.0 0.1 - 1.0 07/03 [facility] STOOL Urobilinogen mg/dL [facility] URINE AND UA Bacteria Occasional None Seen 07/03 [facility] STOOL /HPF /HPF /2013 [facility] URINE AND UA Mucus Few /LPF None Seen 07/03 [facility] STOOL /LPF [facility] URINE AND UA Amorph Occasional None Seen 07/03 [facility] STOOL Christin /HPF /HPF [facility] URINE AND UA Sq Epi Occasional Few /LPF 07/03 [facility] STOOL /LPF /2013 [facility] URINE AND UA WBC 4 0 - 5 07/03 [facility] URINE AND UA Nitrite Negative Negative 07/03 [facility] STOOL (07/03/14 10:50 AM) [facility] URINE AND UA Blood Negative Negative 07/03 [facility] STOOL (07/03/14 10:50 AM) [facility] URINE AND UA Ketones Negative Negative 07/03 [facility] mg/dL mg/dL [facility] URINE AND UA RBC 2 0 - 2 07/03 [facility] URINE AND UA Leuk Est Negative Negative 07/03 [facility] STOOL (07/03/14 10:50 AM) [facility] URINE AND UA Color Light Yellow Yellow 07/03 [facility] STOOL *NA* /2013 [facility] (07/03/14 10:50 AM) [facility] URINE AND UA pH 5.0 5.0 - 8.0 07/03 [facility] URINE AND UA Bili Negative Negative 07/03 [facility] *NA* /2013 [facility] (07/03/14 10:50 AM) [facility] URINE AND UA Glucose Negative Negative 07/03 [facility] mg/dL mg/dL [facility] URINE AND UA Turbidity Slight Clear 07/03 [facility] *ABN* [facility] (07/03/14 10:50 AM) [facility] URINE AND UA Spec Grav 1.007 <=1.030 07/03 [facility] URINE AND UA Protein Negative Negative 07/03 [facility] mg/dL mg/dL [facility] BACTERIAL - MRSA by PCR Negative 16 07/03 <sup>16</sup> [facility] (07/03/14 3:11 AM) Interpretive Medical Data: Center [...] by the Molecular Diagnostic Laboratory within the [facility]. The Molecular Diagnostic Laboratory is authorized under the Clinical Laboratory Improvement Amendment of 1988 (CLIA-88) to perform high complexity testing. CARDIAC Troponin-I <0.02 0.00 - 07/03 [facility] ENZYMES 0.40 [facility] CARDIAC Total CK 51 12 - 191 07/03 ENZYMES [facility] CHEM PANEL Phosphorus 2.8 2.5 - 4.5 07/03 [facility] CHEM PANEL Magnesium Lvl 1.7 1.8 - 2.4 07/03 [facility] CHEM PANEL Total Protein 5.6 6.4 - 8.4 07/03 [facility] CHEM PANEL Albumin Lvl 3.0 3.5 - 5.0 07/03 [facility] CHEM PANEL Globulin 2.6 2.0 - 4.0 07/03 [facility] CHEM PANEL A/G Ratio 1.2 0.7 - 1.6 07/03 [facility] CHEM PANEL ALT 26 0 - 65 07/03 [facility] CHEM PANEL Alk Phos 66 39 - 136 07/03 [facility] CHEM PANEL AST 18 0 - 37 07/03 [facility] CHEM PANEL Bili Indirect 0.1 0.0 - 1.0 07/03 [facility] CHEM PANEL Bili Total 0.2 0.2 - 1.3 07/03 [facility] CHEM PANEL Bili Direct 0.1 0.0 - 0.3 07/03 [facility] HEMATOLOGY PTT 28.0 22.9 - 07/03 <sup>15</sup> [place] 35.8 /2014 Interpretive Medical Data: Heparin Center Therapeutic Range: 57 - 92 Seconds PARATHYROID Ca Norm WB 1.01 1.05 - 07/03 [facility] PROFILE 1.25 [facility] PARATHYROID Ca Ion WB 1.04 1.05 - 07/03 [place] PROFILE 1. [facility] CARDIAC Troponin-T 0.031 0.000 - 07/03 [facility] ENZYMES 0.100 /2013 [facility] BLOOD BANK Antibody Scrn Negative 07/03 [facility] RESULTS (07/02/14 11:20 PM) [facility] BLOOD BANK ABO/Rh O POS 07/03 [facility] RESULTS [facility] CARDIAC Troponin-I <0.02 0.00 - 07/03 [facility] ENZYMES 0.40 [facility] CARDIAC Total CK 59 12 - 191 07/03 [facility] ENZYMES [facility] CARDIAC CK MB 0.7 0.5 - 3.6 07/03 [facility] ENZYMES [facility] CARDIAC CK MB Index 1.2 0.0 - 2.5 07/03 [facility] ENZYMES [facility] HEMATOLOGY Basophils # 0.0 0.0 - 0.2 07/03 [facility] HEMATOLOGY RBC Morph Normal 07/03 [facility] (07/02/14 10:15 PM) [facility] HEMATOLOGY Plt Morph Normal 07/03 [facility] (07/02/14 10:15 PM) [facility] CHEM PANEL POC 1.2 0.5 - 1.4 07/03 [facility] Creatinine [facility] Pathology Reports No Data Provided for This Section Diagnostic Reports No Data Provided for This Section Consultation Notes No Data Provided for This Section Discharge Summaries No Data Provided for This Section History and Physicals No Data Provided for This Section Vital Signs Vital Sign Value Date Comments Source Heart Rate 87 03/08/2019 [facility] Respitory Rate 16 03/08/2019 [facility] Systolic (mm Hg) 119 03/08/2019 [facility] Diastolic (mm Hg) 77 03/08/2019 [facility] Height 162.56 cm 07/20/2018 [facility] BMI Calculated 25.8 07/20/2018 [facility] Weight 68.182 07/20/2018 [facility] Heart Rate 71 07/20/2018 [facility] Respitory Rate 16 07/20/2018 [facility] Systolic (mm Hg) 124 07/20/2018 [facility] Diastolic (mm Hg) 82 07/20/2018 [facility] Systolic (mm Hg) 147 07/08/2014 [facility] [place] Respitory Rate 35 07/08/2014 [facility] Diastolic (mm Hg) 74 07/08/2014 [facility] Respitory Rate 22 07/07/2014 [facility] Diastolic (mm Hg) 68 07/07/2014 [facility] Respitory Rate 20 07/07/2014 [facility] [place] Systolic (mm Hg) 126 07/07/2014 [facility] [place] Diastolic (mm Hg) 75 07/07/2014 [facility] [place] Systolic (mm Hg) 118 07/07/2014 [facility] [place] Heart Rate 69 07/04/2014 [facility] Heart Rate 72 07/04/2014 [facility] Heart Rate 67 07/04/2014 [facility] [place] Height 162.56 cm 07/03/2014 [facility] [place] Weight 83 07/03/2014 [facility] [place] BMI Calculated 31.41 07/03/2014 [facility] [place] Height 162.56 cm 07/03/2014 [facility] [place] Weight 83 07/03/2014 [facility] BMI Calculated 31.41 07/03/2014 [facility] [place] Temperature Oral (F) 97.0 F 07/03/2014 [facility] [place] Temperature Oral (F) 97.9 F 07/03/2014 [facility] [place] BMI Calculated 30.1 07/03/2014 [facility] [place] Weight 79.545 07/03/2014 [facility] [place] Height 162.56 cm 07/03/2014 [facility] [place] Encounters Location Location Encounter Encounter Reason Attending ADM DC Status Source Details Type Number For Provider Date Date Visit [facility] [id number] Korin 07/03 07/08 [facility] Outpatient [id number] SONIA 12/15 [facility] [place] [facility] [id number] SONIA 03/16 [facility] [place] Outpatient [id number] SONIA 07/20 [facility] [place] [facility] [id number] Sonia 07/20 07/21 [facility] [place] Outpatient [id number] SONIA 11/09 [facility] [place] Outpatient [id number] Sonia 03/08 [facility] [place] [facility] Outpatient [id number] Sonia 03/08 03/09 [facility] [place] Outpatient [id number] Sonia 09/13 [facility] [place] Procedures Procedure Code Date Perfomer Comments Source Splenectomy [id number] [facility] [place] Assessment and Plan Assessment and Plan Date Source Extracted from:Title: Progress Note * 07/08/2014 [facility] [place] Author: Yousif Arrieta MD Date: 07/07/14 Impression [...] sub q. DISPO: [place] in patient rehab [facility] hospitalist is consult. 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 3. Acute right COMMUNITY ARTS CENTRE MANAGER territory infarct. 4. Infarct of the inferior [...] ap 61 ASSESSMENT:68 yo LH F admit [facility] 07/02/14 diagnosed R MCA/art dealer/cerebellar infarct with functional deficits of subjectively decreased vision L eye, L leg> L arm weakness, L>R dysmetria. RECOMMEND: Neurorehabilitation PT/OT/ST. cleared for regular diet with thin liquids. Medical R MCA/COMMUNITY ARTS CENTRE MANAGER/R cerebellar hemisphere infarct s/p iv tpa and [...] Admission: 07/02/14 Requesting Physician/Service: Life flight CC: MEDICAL TRANSPORT SPECIALIST LFD dysarthria HISTORY OF PRESENT ILLNESS: 48F [...] dysarthric, comprehension intact, repetition and naming intact manual qa tester: pupils 3mm equal and briskly reactive, left [...] 2-neither 0 1c. 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 Treat fevers and blood sugars aggressively. PT/OT/JACKSCREW WORKER consults - rehab assessments have been ordered. NPO prior to bedside swallow assessment; and escalation of care as determined by nurse DVT prophylaxis with SCDs. 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 Dominguez, the fellow institution librarian. Klaus Holly MD PGY2 Neurology Resident MSO [phone] Pager [phone] Addendum by Brissa Dominguez MD on 07/03/2014 02:05 Stroke Fellow Addendum Please refer to the resident physician's note above for full details. I have discussed the case with the institution librarian resident and agree with their assessment with [...] headache. Head CT s howed old R COMMUNITY ARTS CENTRE MANAGER territory and R cerebellar infarcts though she [...] ___1-one ___2-neither 1c. 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 [...] likely cardioemoblic. She has a prior R COMMUNITY ARTS CENTRE MANAGER and R cerebellar infarct however the y radiographically appear older than just 4 days ago but if this event 4 days ago does represent a recent stroke, she would be at increased risk for hemorragic conversion. [] repeat head CT @ 6am to look monitor for hemorrhagic conversion - Post tPA vital signs and neurochecks per protocol - Goal [id number] - HOB flat, NS 125cc/hr, aggressive blood [...] entered on: 03/08/19 Social History TypeResponse 07/03/2014 [facility] [place] Substance Abuse Use: None Alcohol Use: Current, [...]
--- OUTSIDE RECORDS SUMMARY | 2019-05-04 15:47 | XMS REPORT ---
[...] End Status Dosage System Date Date Carbidopa-Levo [facility] [address]-06 Active not dopa defined Xarelto [facility] [address]-17 Active not defined Tylenol # 3 NDC 0 Active not defined Omeprazole [facility] [id number] Active not defined Tylenol # 3 NDC 0 300/30mg PO Q Nov 03, Active one tab 4-6 HRS PRN 2019 PAIN Results No Known Results Summary Purpose eClinicalWorks Submission
--- OUTSIDE RECORDS SUMMARY | 2019-05-04 15:47 | XMS REPORT ---
[...] Medications Results No Known Results Summary Purpose eClinicalVir-Sec Submission
--- OUTSIDE RECORDS SUMMARY | 2019-05-04 15:47 | XMS REPORT ---
[...] End Date Status Dosage Date Carbidopa-Levod [facility] 85690-87 Active not defined opa 12-07 Xarelto [facility] [address]1821-50 Active not defined 77-10 [place] [address]-98 Active not defined 81-02 Tylenol # 3 NDC 0 300/30mg PO Q Nov 03, Active one tab 4-6 HRS PRN PAIN 2018 Tylenol # 3 NDC 0 Active not defined Results No Known Results Summary Purpose eClinicalWorks Submission
--- OUTSIDE RECORDS SUMMARY | 2019-05-04 15:47 | XMS REPORT ---
[...] End Date Status Dosage System Date Carbidopa-Levo [facility] [address]-73 Active not dopa defined Amoxicillin [facility] 82610597802 875 MG Orally December Active 1 tablet TID 2018 Xarelto [facility] [address]-81 Active not defined Omeprazole [facility] 48758615367 Active not defined Tylenol # 3 NDC 0 300/30mg PO Q Nov 03, Active one tab 4-6 HRS PRN 2018 PAIN Results No Known Results Summary Purpose eClinicalWorks Submission
--- OUTSIDE RECORDS SUMMARY | 2019-05-04 15:47 | XMS REPORT ---
[...] Medications Results No Known Results Summary Purpose eClinicalContinuent Submission
--- OUTSIDE RECORDS SUMMARY | 2019-05-04 15:47 | XMS REPORT ---
[...] End Status Dosage System Date Date Carbidopa-Levo [facility] [address]-11 Active not dopa defined Tylenol # 3 NDC 0 Active not defined Omeprazole [facility] [id number] Active not defined Xarelto [facility] [address]-99 Active not defined Tylenol # 3 NDC 0 300/30mg PO Q Nov 03, Active one tab 4-6 HRS PRN 2019 PAIN Results No Known Results Summary Purpose eClinicalWorks Submission
--- OUTSIDE RECORDS SUMMARY | 2019-05-04 15:47 | XMS REPORT ---
[...] Start End Date Status Dosage Date Omeprazole [facility] 48107-73 Active not defined 81-02 Tylenol # 3 NDC 0 Active not defined Xarelto [facility] 55122-56 Active not defined 77-10 Carbidopa-Levod [facility] 82611-79 Active not defined opa 12-07 Tylenol # 3 NDC 0 300/30mg PO Q Nov 03, Active one tab 4-6 HRS PRN PAIN 2019 Results No Known Results Summary Purpose eClinicalWorks Submission
--- OUTSIDE RECORDS SUMMARY | 2019-05-04 15:47 | XMS REPORT ---
[...] System Date Omeprazole [facility] 33800848530 Active not defined Xarelto [facility] [address]-89 Active not defined Tylenol # 3 NDC 0 300/30mg PO Q Nov 03, Active one tab 4-6 HRS PRN 2018 PAIN Tylenol # 3 NDC 0 Active not defined Carbidopa-Levo [facility] [address]-25 Active not dopa defined Amoxicillin [facility] 18681537163 875 MG Orally December Active 1 tablet every 12 hrs 2018 Amoxicillin [facility] 67469207331 875 MG Orally December Active 1 tablet TID 2018 Results No Known Results Summary Purpose eClinicalWorks Submission
--- OUTSIDE RECORDS SUMMARY | 2019-05-04 15:48 | XMS REPORT ---
[...] tab 4-6 HRS PRN 2018 PAIN Xarelto [facility] [address]-99 Active not defined Amoxicillin [facility] 70910916284 875 MG Orally 1 DecemberJanuary 10, Active 1 tablet po BID 2018 Carbidopa-Levod [facility] [address]-91 Active not opa defined Omeprazole [facility] 38602819233 Active not defined Results No Known Results Summary Purpose eClinicalWorks Submission
--- OUTSIDE RECORDS SUMMARY | 2019-05-04 15:48 | XMS REPORT ---
[...] Status Dosage System Date Date Xarelto [facility] [address]-65 Active not defined Omeprazole [facility] 39949350594 Active not defined Tylenol # 3 NDC 0 300/30mg PO Q Nov 03, Active one tab 4-6 HRS PRN 2019 PAIN Carbidopa-Levo [facility] [address]-56 Active not dopa defined Results No Known Results Summary Purpose eClinicalWorks Submission
[2019-05-04] MEDS ORDERED: dexAMETHasone 10 MG/ML VIAL ONE (16:24)
[2019-05-04] MEDS ORDERED: PROMETHAZINE 25 MG TABLET ONE (16:25)
--- NOTE | 2019-05-04 17:18 | ER ---
Nurse's Notes [facility] Name: Ning Coffey Age: 73 yrs Sex: Female : 1945 Arrival Date: 05/04/2019 Time: 15:44 Bed 28 Private MD: Alannah Pimentel H Diagnosis: Urticaria, unspecified Presentation: 05/04 15:46 Presenting complaint: Patient states: seen here for rash yesterday and itching is aa5 getting worse. Transition of care: patient was not received from another setting of care. Onset of symptoms was April 2019. Risk Assessment: Do you want to hurt yourself or someone else? Patient reports no desire to harm self or others. Initial Sepsis Screen: Does the patient meet any 2 criteria? No. Patient's initial sepsis screen is negative. Does the patient have a suspected source of infection? No. Patient's initial sepsis screen is negative. Care prior to arrival: None. 15:46 Acuity: DANIELLE 5 aa5 15:46 Method Of Arrival: Ambulatory aa5 Triage Assessment: 16:17 General: Appears uncomfortable, Behavior is calm, cooperative. Pain: Denies pain. EENT: mg2 No deficits noted. Neuro: Level of Consciousness is awake, alert, obeys commands, Oriented to person, place, time, situation. Cardiovascular: Capillary refill < 3 seconds Patient's skin is warm and dry. Respiratory: Airway is patent Respiratory effort is even, unlabored, Respiratory pattern is regular, symmetrical. GI: No signs and/or symptoms were reported involving the gastrointestinal system. : No signs and/or symptoms were reported regarding the genitourinary system. Derm: Skin is intact, is healthy with good turgor, Rash noted that is red, urticaria, on whole body. Musculoskeletal: Circulation, motion, and sensation intact. Capillary refill < 3 seconds. Historical: - Allergies: 15:48 Levaquin; aa5 15:48 Sulfa (Sulfonamide Antibiotics); aa5 - Home Meds: 16:20 carbidopa-levodopa 25-100 mg Oral tab [Active]; Carbidopa-Levodopa Oral [Active]; mg2 hydrocodone-acetaminophen 10-325 mg Oral tab 1 tab every 4 hours for Pain [Active]; Omeprazole Oral as needed [Active]; Xarelto 15 mg Oral tab daily [Active]; - PMHx: 15:48 CVA; Parkinsons; aa5 - PSHx: 15:48 Hysterectomy; splenectomy; Tonsillectomy; aa5 - Immunization history:: Flu vaccine is up to date. - Social history:: Smoking status: Patient/guardian denies using tobacco. - Ebola Screening: : No symptoms or risks identified at this time. Screenin:17 Abuse screen: Denies threats or abuse. Denies injuries from another. Nutritional mg2 screening: No deficits noted. Tuberculosis screening: No symptoms or risk factors identified. Fall Risk None identified. Assessment: 16:19 Reassessment: pls see triage assesment. mg2 Vital Signs: 15:49 BP 175 / 92; Pulse 70; Resp 16 S; Temp 97.3(TE); Pulse Ox 100% on R/A; Weight 70.31 kg aa5 (R); Height 5 ft. 4 in. (162.56 cm) (R); Pain 0/10; 16:15 BP 142 / 65; Pulse 78; Resp 18; Pulse Ox 98% on R/A; mg2 15:49 Body Mass Index 26.61 (70.31 kg, 162.56 cm) aa5 ED Course: 15:44 Patient arrived in ED. mr 15:44 Alannah Pimentel DO is Private Physician. mr 15:46 Arm band placed on. aa5 15:48 Triage completed. aa5 15:51 Vito Bermudez, RN is Primary Nurse. mg2 16:15 Marylu Saab FNP-C is PHCP. snw 16:15 Hermelindo De Luna MD is Attending Physician. snw 16:16 Patient has correct armband on for positive identification. Pulse ox on. NIBP on. mg2 16:19 No provider procedures requiring assistance completed. mg2 17:16 Alannah Pimentel DO is Referral Physician. snw 17:16 Referral Physician role handed off by Alannah Pimentel DO snw 17:34 Patient did not have IV access during this emergency room visit. mg2 Administered Medications: 16:30 Drug: Decadron 10 mg Route: IM; Site: right gluteus; mg2 17:11 Follow up: Response: No adverse reaction; Marked relief of symptoms mg2 16:30 Drug: Phenergan 25 mg Route: PO; mg2 17:11 Follow up: Response: No adverse reaction; Marked relief of symptoms mg2 Outcome: 17:16 Discharge ordered by MD. jiménez 17:35 Discharged to home ambulatory, with family. mg2 17:35 Condition: stable 17:35 Discharge instructions given to patient, family, Instructed on discharge instructions, follow up and referral plans. medication usage, Demonstrated understanding of instructions, follow-up care, medications, Prescriptions given X 1. 17:36 Patient left the ED. mg2 Signatures: Marylu Saab, PROVIDER RELATIONS SPECIALIST-C PROVIDER RELATIONS SPECIALIST-Sofia Vee mr Howard, Lisa, RN RN aa5 Vito Bermudez RN RN mg2
--- NOTE | 2019-05-04 17:19 | EDPHYS ---
Physician Documentation [facility] Name: Ning Coffey Age: 73 yrs Sex: Female : 1945 Arrival Date: 05/04/2019 Time: 15:44 Bed 28 Private MD: Alannah Pimentel H ED Physician Hermelindo De Luna HPI: 05/04 16:39 This 73 yrs old Female presents to ER via Ambulatory with complaints of Rash. snw 16:39 The patient's rash thought to be caused by pt just finished a round of doxy for snw cellulitis of left forearm. Pt to see derm on Thursday. The rash is located on the body diffusely. The rash can be described as macular, papular, urticarial. Onset: The symptoms/episode began/occurred yesterday, and became worse today. Associated signs and symptoms: Pertinent positives: itching. Severity of symptoms: At their worst the symptoms were severe incapacitating. Treatment given at home: atarax, pepcid. The patient has experienced similar episodes in the past. The patient has been recently seen by a physician: The patient has been recently seen at the [facility] Emergency Department, yesterday, for similar complaints. Historical: - Allergies: 15:48 Levaquin; aa5 15:48 Sulfa (Sulfonamide Antibiotics); aa5 - Home Meds: 16:20 carbidopa-levodopa 25-100 mg Oral tab [Active]; Carbidopa-Levodopa Oral [Active]; mg2 hydrocodone-acetaminophen 10-325 mg Oral tab 1 tab every 4 hours for Pain [Active]; Omeprazole Oral as needed [Active]; Xarelto 15 mg Oral tab daily [Active]; - PMHx: 15:48 CVA; Parkinsons; aa5 - PSHx: 15:48 Hysterectomy; splenectomy; Tonsillectomy; aa5 - Immunization history:: Flu vaccine is up to date. - Social history:: Smoking status: Patient/guardian denies using tobacco. - Ebola Screening: : No symptoms or risks identified at this time. ROS: 16:38 Eyes: Negative for injury, pain, redness, and discharge, ENT: Negative for injury, snw pain, and discharge, Neck: Negative for injury, pain, and swelling, Cardiovascular: Negative for chest pain, palpitations, and edema, Respiratory: Negative for shortness of breath, cough, wheezing, and pleuritic chest pain, Abdomen/GI: Negative for abdominal pain, nausea, vomiting, diarrhea, and constipation, Back: Negative for injury and pain, : Negative for injury, bleeding, discharge, and swelling, MS/Extremity: Negative for injury and deformity, Neuro: Negative for headache, weakness, numbness, tingling, and seizure, Psych: Negative for depression, anxiety, suicide ideation, homicidal ideation, and hallucinations. 16:38 Constitutional: Positive for severe pruritis keeping pt awake. 16:38 Skin: Positive for rash, of the back, buttocks, chest and pelvis. Exam: 16:36 Constitutional: This is a well developed, well nourished patient who is awake, alert, snw and in no acute distress. Head/Face: Normocephalic, atraumatic. Eyes: Pupils equal round and reactive to light, extra-ocular motions intact. Lids and lashes normal. Conjunctiva and sclera are non-icteric and not injected. Cornea within normal limits. Periorbital areas with no swelling, redness, or edema. ENT: Nares patent. No nasal discharge, no septal abnormalities noted. Tympanic membranes are normal and external auditory canals are clear. Oropharynx with no redness, swelling, or masses, exudates, or evidence of obstruction, uvula midline. Mucous membranes moist. Neck: Trachea midline, no thyromegaly or masses palpated, and no cervical lymphadenopathy. Supple, full range of motion without nuchal rigidity, or vertebral point tenderness. No Meningismus. Chest/axilla: Normal chest wall appearance and motion. Nontender with no deformity. No lesions are appreciated. Cardiovascular: Regular rate and rhythm with a normal S1 and S2. No gallops, murmurs, or rubs. Normal PMI, no JVD. No pulse deficits. Respiratory: Lungs have equal breath sounds bilaterally, clear to auscultation and percussion. No rales, rhonchi or wheezes noted. No increased work of breathing, no retractions or nasal flaring. Abdomen/GI: Soft, non-tender, with normal bowel sounds. No distension or tympany. No guarding or rebound. No evidence of tenderness throughout. Back: No spinal tenderness. No costovertebral tenderness. Full range of motion. MS/ Extremity: Pulses equal, no cyanosis. Neurovascular intact. Full, normal range of motion. Neuro: Awake and alert, GCS 15, oriented to person, place, time, and situation. Cranial nerves II-XII grossly intact. Motor strength 5/5 in all extremities. Sensory grossly intact. Cerebellar exam normal. Normal gait. Psych: Awake, alert, with orientation to person, place and time. Behavior, mood, and affect are within normal limits. 16:36 Skin: Appearance: normal except for affected area, rash a severe rash is noted, consistent with drug rash, and is diffusely located. Vital Signs: 15:49 BP 175 / 92; Pulse 70; Resp 16 S; Temp 97.3(TE); Pulse Ox 100% on R/A; Weight 70.31 kg aa5 (R); Height 5 ft. 4 in. (162.56 cm) (R); Pain 0/10; 16:15 BP 142 / 65; Pulse 78; Resp 18; Pulse Ox 98% on R/A; mg2 15:49 Body Mass Index 26.61 (70.31 kg, 162.56 cm) aa5 MDM: 16:18 Patient medically screened. snw 17:17 Data reviewed: vital signs, nurses notes. Data interpreted: Pulse oximetry: on room air snw is 98 %. Interpretation: normal. Counseling: I had a detailed discussion with the patient and/or guardian regarding: the historical points, exam findings, and any diagnostic results supporting the discharge/admit diagnosis, the need for outpatient follow up, to return to the emergency department if symptoms worsen or persist or if there are any questions or concerns that arise at home. Special discussion: I have referred the patient to see his PCP for further evaluation of high blood pressure. Based on the history and exam findings, there is no indication for further emergent testing or inpatient evaluation. I discussed with the patient/guardian the need to see the digital advisor for further evaluation of the symptoms. Administered Medications: 16:30 Drug: Decadron 10 mg Route: IM; Site: right gluteus; mg2 17:11 Follow up: Response: No adverse reaction; Marked relief of symptoms mg2 16:30 Drug: Phenergan 25 mg Route: PO; mg2 17:11 Follow up: Response: No adverse reaction; Marked relief of symptoms mg2 Disposition: 05/04/19 17:16 Discharged to Home. Impression: Urticaria, unspecified. - Condition is Stable. - Discharge Instructions: Hives, [id number], Allergies, [id number]-vi-[id number]. - Prescriptions for promethazine 25 mg Oral Tablet - take 1 tablet by ORAL route every 6 hours As needed; 20 tablet. - Medication Reconciliation Form, Thank You Letter, Antibiotic Education, Prescription Opioid Use form. - Follow up: Alannah Pimentel DO; When: 1 - 2 days; Reason: Recheck today's complaints, Continuance of care, Re-evaluation by your physician. Follow up: Private Physician; When: 1 - 2 days; Reason: Recheck today's complaints, Continuance of care, Re-evaluation by your physician. Signatures: Marylu Saab, POWER BENDER OPERATOR-C POWER BENDER OPERATOR-Csnw Lisa Howard RN RN aa5 Vito Bermudez RN RN mg2 Corrections: (The following items were deleted from the chart) 17:36 17:16 05/04/2019 17:16 Discharged to Home. Impression: Urticaria, unspecified. mg2 Condition is Stable. Forms are Medication Reconciliation Form, Thank You Letter, Antibiotic Education, Prescription Opioid Use. Follow up: Private Physician; When: 1 - 2 days; Reason: Recheck today's complaints, Continuance of care, Re-evaluation by your physician. snw
[2019-05-04 19:28] VITALS: TEMP 97.3
[2019-05-04 19:29] VITALS: BP 142/65; O2SAT 98
== END 2019-05-04 17:36 | disposition home or self-care (01) ==
LOC: ER 15:42
DX: L50.9 Urticaria, unspecified (principal); G20 Parkinson's disease; Z79.01 Long term (current) use of anticoagulants; Z88.1 Allergy status to other antibiotic agents; Z88.2 Allergy status to sulfonamides; Z86.73 Personal history of transient ischemic attack (TIA), and cerebral infarction without residual deficits
CPT/HCPCS: 96372; 99283; J1100

== ENCOUNTER 2019-09-18 12:07 | Emergency (ER) | payer OTHER, MEDICARE ==
--- OUTSIDE RECORDS SUMMARY | 2019-09-18 12:09 | XMS REPORT ---
:1945 [facility] Address [address] [place] [address] Dr. Degroot [address] [place] [address] Care Team Providers Name Role Phone Unavailable Unavailable Unavailable Problems This patient has no known problems. Allergies, Adverse Reactions, Alerts This patient has no known allergies or adverse reactions. Medications This patient has no known medications.
--- OUTSIDE RECORDS SUMMARY | 2019-09-18 12:09 | XMS REPORT ---
[...] End Date Status Dosage Date Omeprazole [facility] 90146-41 Active not defined 81-02 Tylenol # 3 NDC 0 Active not defined Xarelto [facility] 14805-07 Active not defined 77-10 Carbidopa-Levod [facility] 15740-10 Active not defined opa 12-07 Tylenol # 3 NDC 0 300/30mg PO Q Nov 03, Active one tab 4-6 HRS PRN PAIN 2019 Results No Known Results Summary Purpose eClinicalWorks Submission
--- OUTSIDE RECORDS SUMMARY | 2019-09-18 12:09 | XMS REPORT ---
[...] Start End Date Status Dosage Date Carbidopa-Levod [facility] 72881-00 Active not defined opa 12-07 Xarelto [facility] 58564-62 Active not defined 77-10 [place] [address]-95 Active not defined 81-02 Tylenol # 3 NDC 0 300/30mg PO Q Nov 03, Active one tab 4-6 HRS PRN PAIN 2018 Tylenol # 3 NDC 0 Active not defined Results No Known Results Summary Purpose eClinicalWorks Submission
--- OUTSIDE RECORDS SUMMARY | 2019-09-18 12:10 | XMS REPORT ---
[...] tab 4-6 HRS PRN [address] [facility] [address]-83 Active not defined Amoxicillin [facility] 28557762350 875 MG Orally 1 DecemberJanuary 10, Active 1 tablet po BID 2018 Carbidopa-Levod [facility] [address]-05 Active not opa defined Omeprazole [facility] 30222332893 Active not defined Results No Known Results Summary Purpose eClinicalWorks Submission
--- OUTSIDE RECORDS SUMMARY | 2019-09-18 12:10 | XMS REPORT ---
[...] Date Carbidopa-Levo [facility] [address]-37 Active not dopa defined Xarelto [facility] [address]-44 Active not defined Tylenol # 3 NDC 0 Active not defined Omeprazole [facility] 41001292581 Active not defined Tylenol # 3 NDC 0 300/30mg PO Q Nov 03, Active one tab 4-6 HRS PRN 2019 PAIN Results No Known Results Summary Purpose eClinicalWorks Submission
--- OUTSIDE RECORDS SUMMARY | 2019-09-18 12:10 | XMS REPORT ---
[...] Date Date Carbidopa-Levo [facility] [address]-26 Active not dopa defined Tylenol # 3 NDC 0 Active not defined Omeprazole [facility] 64972696549 Active not defined Xarelto [facility] [address]-43 Active not defined Tylenol # 3 NDC 0 300/30mg PO Q Nov 03, Active one tab 4-6 HRS PRN 2019 PAIN Results No Known Results Summary Purpose eClinicalWorks Submission
--- OUTSIDE RECORDS SUMMARY | 2019-09-18 12:10 | XMS REPORT ---
[...] Medications Results No Known Results Summary Purpose eClinicalLight[employer] Energy Submission
--- OUTSIDE RECORDS SUMMARY | 2019-09-18 12:10 | XMS REPORT ---
[...] Medications Results No Known Results Summary Purpose eClinicalSmartCup Submission
--- OUTSIDE RECORDS SUMMARY | 2019-09-18 12:10 | XMS REPORT | Summary of Care ---
:1945 Author Organization [facility] Address [address] [place] [id number] Care Team Providers Name Role Phone Alannah Pimentel Primary Care Provider Reason for Visit Reason Comments LAB WORK Auth/Cert Status Reason Specialty Diagnoses / Referred By Referred To Procedures Contact Contact Clinical Medical Diagnoses Combined forms of age-related cataract, right eye H25.811 (ICD-10-CM) - Combined forms of age-related cataract, right eye [facility] Laboratory Procedures CBC WITH DIFF COMP. 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 Ryland Garza MD [address] [place] [address] [address] [place] [address] Pre-op testing Phlebotomy 1, [facility] (Primary Dx) Lab-[address] [place] [address] Allergies Active Allergy Reactions Severity Noted Date Comments Sulfa (Sulfonamide Antibiotics) Anaphylaxis 03/24/2016 documented as of this encounter (statuses as of 05/16/2019) Medications Medication Sig Dispensed Refills Start Date End Date Status XARELTO 15 mg tablet TK 1 T PO D 5 03/16/2016 Active levofloxacin (LEVAQUIN) TK 1 T PO D. 0 01/10/2016 Active 500 mg tablet acetaminophen-codeine Take 1 tablet by 0 Active (TYLENOL #3) 300-30 mg mouth every 4 tablet (four) hours as needed. pentazocine-naloxone Take 1 tablet by 40 tablet 0 03/26/2016 Active (TALWIN NX) 50-0.5 mg mouth every 4 tablet (four) hours as needed for Pain. documented as of this encounter (statuses as of 05/16/2019) Active Problems Not on filedocumented as of this encounter (statuses as of 05/16/2019) Social History Tobacco Use Types Packs/Day Years Used Date Former Smoker Alcohol Use Drinks/Week oz/Week Comments Yes 10 Glasses of wine 6.0 Sex Assigned at Date Recorded Not on file Job Start Date Occupation Industry Not on file Not on file Not on file Travel History Travel Start Travel End No recent travel history available. documented as of this encounter Last Filed Vital Signs Not on filedocumented in this encounter Plan of Treatment Date Type Specialty Care Team Description 05/25/2019 Hospital Encounter Surgery Ryland Garza MD [address] [facility] [place] [place] [address] [place] [address] 05/25/2019 Surgery Surgery Ryland Garza PHACOEMULSIFICATION OF MD Yvon CATARACT WITH INTRAOCULAR [facility] [address] [facility] [address] Name Type Priority Associated Diagnoses Date/Time CBC WITH DIFF LAB Routine Pre-op testing 05/16/2019 1:03 PM CDT COMP. METABOLIC PANEL LAB Routine Pre-op testing 05/16/2019 1:03 PM CDT (98229) CBC WITH DIFFERENTIAL LAB Routine Pre-op testing 05/16/2019 1:03 PM CDT Health Maintenance Due Date Last Done Comments HEPATITIS C (HCV) SCREEN 1945 DTaP,Tdap,and Td Vaccines (1 - Tdap) 1964 MAMMOGRAM 1985 COLONOSCOPY 11/16/1995 Zoster Recombinant Vaccine (SHINGRIX) (1 of 2) 11/16/1995 Medicare Wellness Visit 2010 Osteoporosis Screening 2010 PNEUMOCOCCAL VACCINES 65+ (1 of 2 - PCV13) 2010 INFLUENZA VACCINE (#1) 2019 documented as of this encounter Results Not on filedocumented in this encounter Visit Diagnoses Diagnosis Pre-op testing - Primary Preoperative examination, unspecified documented in this encounter Insurance Payer Benefit Plan / Subscriber ID Effective Phone Address Type Group Dates MEDICARE MEDICARE PART xxxxxxxxxx 2010-Pre [phone] [address] Medicare A & B sent [phone] [id number] [place] [address] [facility] [id number] 2016-Pre [address] Medicare HEALTHCARE HEALTHCARE sent [id number] Supplement MEDICARE [place] SUPPLEMENT [place] [id number] (Work) documented as of this encounter
--- OUTSIDE RECORDS SUMMARY | 2019-09-18 12:10 | XMS REPORT ---
[...] End Date Status Dosage System Date Carbidopa-Levo [facility] [address]-43 Active not dopa defined Amoxicillin [facility] 84124263897 875 MG Orally December Active 1 tablet TID 2018 Xarelto [facility] [address]-44 Active not defined Omeprazole [facility] 32044638280 Active not defined Tylenol # 3 NDC 0 300/30mg PO Q Nov 03, Active one tab 4-6 HRS PRN 2018 PAIN Results No Known Results Summary Purpose eClinicalWorks Submission
--- OUTSIDE RECORDS SUMMARY | 2019-09-18 12:10 | XMS REPORT ---
[...] End Status Dosage System Date Date Xarelto [facility] [address]-57 Active not defined Omeprazole [facility] 50805554481 Active not defined Tylenol # 3 NDC 0 300/30mg PO Q Nov 03, Active one tab 4-6 HRS PRN 2019 PAIN Carbidopa-Levo [facility] [address]-62 Active not dopa defined Results No Known Results Summary Purpose eClinicalWorks Submission
--- OUTSIDE RECORDS SUMMARY | 2019-09-18 12:10 | XMS REPORT ---
[...] End Date Status Dosage System Date Omeprazole [facility] 05403107830 Active not defined Xarelto [facility] [address]-80 Active not defined Tylenol # 3 NDC 0 300/30mg PO Q Nov 03, Active one tab 4-6 HRS PRN 2018 PAIN Tylenol # 3 NDC 0 Active not defined Carbidopa-Levo [facility] [address]-22 Active not dopa defined Amoxicillin [facility] 53389425476 875 MG Orally December Active 1 tablet every 12 hrs 2018 Amoxicillin [facility] 23578171505 875 MG Orally December Active 1 tablet TID 2018 Results No Known Results Summary Purpose eClinicalWorks Submission
[2019-09-18] MEDS ORDERED: TOBRAMYCIN SULF 0.3% OPTH OINT ONE (13:27)
--- NOTE | 2019-09-18 13:34 | EDPHYS ---
Physician Documentation [facility] Name: Ning Coffey Age: 73 yrs Sex: Female : 1945 Arrival Date: 09/18/2019 Time: 12:09 Bed 20 Private MD: ED Physician Shlomo Harvey HPI: 09/18 13:47 This 73 yrs old Female presents to ER via Ambulatory with complaints of Eye snw Swelling, Redness of Eye. 13:47 The patient is experiencing redness, The patient sustained None. to the left eye, snw caused by "I thought it was an allergy". Onset: The symptoms/episode began/occurred suddenly, 2 day(s) ago, and became persistent. Duration: the symptoms are continuous. Associated signs and symptoms: Pertinent positives: None. Patient pt scheduled for lens replacement on Thursday. Severity of symptoms: At their worst the symptoms were mild in the emergency department the symptoms are unchanged. The patient has not experienced similar symptoms in the past. It is unknown whether or not the patient has recently seen a physician. no visual changes, EOMI. Historical: - Allergies: 12:54 Levaquin; aj1 12:54 Sulfa (Sulfonamide Antibiotics); aj1 - Home Meds: 12:54 carbidopa-levodopa 25-100 mg Oral tab [Active]; Omeprazole Oral as needed [Active]; aj1 Xarelto 15 mg Oral tab daily [Active]; - PMHx: 12:54 CVA; Parkinsons; aj1 - Immunization history:: Flu vaccine is up to date. - Social history:: Smoking status: Patient/guardian denies using tobacco. - Ebola Screening: : Patient denies travel to an Ebola-affected area in the 21 days before illness onset. ROS: 13:47 Constitutional: Negative for fever, chills, and weight loss, ENT: Negative for injury, snw pain, and discharge, Neck: Negative for injury, pain, and swelling, Cardiovascular: Negative for chest pain, palpitations, and edema, Respiratory: Negative for shortness of breath, cough, wheezing, and pleuritic chest pain, Abdomen/GI: Negative for abdominal pain, nausea, vomiting, diarrhea, and constipation, Back: Negative for injury and pain, : Negative for injury, bleeding, discharge, and swelling, MS/Extremity: Negative for injury and deformity, Skin: Negative for injury, rash, and discoloration, Neuro: Negative for headache, weakness, numbness, tingling, and seizure. 13:47 Eyes: Positive for itching, redness, of the outer aspect of conjuctiva of left eye, inner aspect of conjunctiva of left eye and left lower eyelid. Exam: 13:37 Constitutional: This is a well developed, well nourished patient who is awake, alert, snw and in no acute distress. Head/Face: Normocephalic, atraumatic. left lower eyelid and left cheek with mild edema, erythema, almost contused appearance ENT: Nares patent. No nasal discharge, no septal abnormalities noted. Tympanic membranes are normal and external auditory canals are clear. Oropharynx with no redness, swelling, or masses, exudates, or evidence of obstruction, uvula midline. Mucous membranes moist. Neck: Trachea midline, no thyromegaly or masses palpated, and no cervical lymphadenopathy. Supple, full range of motion without nuchal rigidity, or vertebral point tenderness. No Meningismus. Chest/axilla: Normal chest wall appearance and motion. Nontender with no deformity. No lesions are appreciated. Cardiovascular: Regular rate and rhythm with a normal S1 and S2. No gallops, murmurs, or rubs. Normal PMI, no JVD. No pulse deficits. Respiratory: Lungs have equal breath sounds bilaterally, clear to auscultation and percussion. No rales, rhonchi or wheezes noted. No increased work of breathing, no retractions or nasal flaring. Abdomen/GI: Soft, non-tender, with normal bowel sounds. No distension or tympany. No guarding or rebound. No evidence of tenderness throughout. Back: No spinal tenderness. No costovertebral tenderness. Full range of motion. Skin: Warm, dry with normal turgor. Normal color with no rashes, no lesions, and no evidence of cellulitis. MS/ Extremity: Pulses equal, no cyanosis. Neurovascular intact. Full, normal range of motion. Neuro: Awake and alert, GCS 15, oriented to person, place, time, and situation. Cranial nerves II-XII grossly intact. Motor strength 5/5 in all extremities. Sensory grossly intact. Cerebellar exam normal. Normal gait. Psych: Awake, alert, with orientation to person, place and time. Behavior, mood, and affect are within normal limits. 13:37 Eyes: Periorbital structures: erythema, swelling, that is mild, on the left lower eyelid, Pupils: post cataract surgery to right, scheduled to left on Thursday, pt will notify surgeon of conjunctivitis/contusion tomorrow, Extraocular movements: intact throughout, Conjunctiva: injected, in the left eye, subconjunctival hemorrhage(s), prominent vasculature, Corneas: are normal, Sclera: no appreciated abnormality, Visual zamora: are intact, unchanged. Vital Signs: 12:54 BP 131 / 87; Pulse 58; Resp 18; Temp 97.9; Pulse Ox 96% on R/A; Weight 72.57 kg (R); aj1 Height 5 ft. 4 in. (162.56 cm) (R); Pain 3/10; 13:30 BP 130 / 86; Pulse 60; Resp 16; Pulse Ox 98% on R/A; rb1 12:54 Body Mass Index 27.46 (72.57 kg, 162.56 cm) aj1 MDM: 13:14 Patient medically screened. snw 13:46 Data reviewed: vital signs, nurses notes. Data interpreted: Pulse oximetry: on room air snw is 96 %. Interpretation: acceptable. Counseling: I had a detailed discussion with the patient and/or guardian regarding: the historical points, exam findings, and any diagnostic results supporting the discharge/admit diagnosis, the presence of at least one elevated blood pressure reading (>120/80) during this emergency department visit, the need for outpatient follow up, to return to the emergency department if symptoms worsen or persist or if there are any questions or concerns that arise at home. Response to treatment: the patient's symptoms have mildly improved after treatment. Special discussion: I have referred the patient to see his PCP for further evaluation of high blood pressure. Based on the history and exam findings, there is no indication for further emergent testing or inpatient evaluation. I discussed with the patient/guardian the need to see the opthamologist for further evaluation of the symptoms, I discussed with the patient/guardian the need to see the primary care provider for further evaluation of the symptoms. Administered Medications: 13:33 Drug: Tobrex 0.3 % 1 application Route: Ophthalmic; Site: left eye; rb1 Disposition: 13:53 Co-signature as Attending Physician, Shlomo Harvey MD. rn Disposition: 09/18/19 13:33 Discharged to Home. Impression: Conjunctivitis, Contusion of other part of head. - Condition is Stable. - Discharge Instructions: Allergic Conjunctivitis, Adult, Bacterial Conjunctivitis, Facial or Scalp Contusion. - Medication Reconciliation Form, Thank You Letter, Antibiotic Education, Prescription Opioid Use form. - Follow up: Emergency Department; When: As needed; Reason: Fever > 102 F, Worsening of condition. Follow up: Private Physician; When: 1 - 2 days; Reason: Recheck today's complaints, Continuance of care, Re-evaluation by your physician. Signatures: Marry Garza RN RN aj1 Marylu Saab, DURABLE MEDICAL EQUIPMENT REPAIRER-C DURABLE MEDICAL EQUIPMENT REPAIRER-Csnw Shlomo Harvey MD MD rn Barber, Rebecca, RN RN rb1 Amanda Caballero RN RN tw2 Corrections: (The following items were deleted from the chart) 13:51 13:33 09/18/2019 13:33 Discharged to Home. Impression: Conjunctivitis; Contusion of tw2 other part of head. Condition is Stable. Forms are Medication Reconciliation Form, Thank You Letter, Antibiotic Education, Prescription Opioid Use. Follow up: Emergency Department; When: As needed; Reason: Fever > 102 F, Worsening of condition. Follow up: Private Physician; When: 1 - 2 days; Reason: Recheck today's complaints, Continuance of care, Re-evaluation by your physician. snw
--- NOTE | 2019-09-18 13:34 | ER ---
Nurse's Notes [facility] Name: Ning Coffey Age: 73 yrs Sex: Female : 1945 Arrival Date: 09/18/2019 Time: 12:09 Bed 20 Private MD: Diagnosis: Conjunctivitis;Contusion of other part of head Presentation: 09/18 12:50 Presenting complaint: Patient states: "I thought it was an allergy on Thursday, so I've aj1 been taking Benadryl but its just getting worse." Redness, drainage noted to left eye. Redness extended down left eye into cheek. Denies fever. Transition of care: patient was not received from another setting of care. Onset of symptoms was 2019. Risk Assessment: Do you want to hurt yourself or someone else? Patient reports no desire to harm self or others. Initial Sepsis Screen: Does the patient meet any 2 criteria? No. Patient's initial sepsis screen is negative. Does the patient have a suspected source of infection? Yes: Skin breakdown/wound. Care prior to arrival: None. 12:50 Method Of Arrival: Ambulatory aj 12:50 Method Of Arrival: Ambulatory [facility] 12:50 Acuity: DANIELLE 3 aj1 Triage Assessment: 12:54 General: Appears in no apparent distress. uncomfortable, Behavior is calm, cooperative, aj1 appropriate for age. Pain: Complains of pain in left eye Pain currently is 3 out of 10 on a pain scale. Neuro: Level of Consciousness is awake, alert, obeys commands. Cardiovascular: Patient's skin is warm and dry. Respiratory: Airway is patent Respiratory effort is even, unlabored, Respiratory pattern is regular, symmetrical. Historical: - Allergies: 12:54 Levaquin; aj1 12:54 Sulfa (Sulfonamide Antibiotics); aj1 - Home Meds: 12:54 carbidopa-levodopa 25-100 mg Oral tab [Active]; Omeprazole Oral as needed [Active]; aj1 Xarelto 15 mg Oral tab daily [Active]; - PMHx: 12:54 CVA; Parkinsons; aj1 - Immunization history:: Flu vaccine is up to date. - Social history:: Smoking status: Patient/guardian denies using tobacco. - Ebola Screening: : Patient denies travel to an Ebola-affected area in the 21 days before illness onset. Screenin:08 Abuse screen: Denies threats or abuse. Nutritional screening: No deficits noted. rb1 Tuberculosis screening: No symptoms or risk factors identified. Fall Risk None identified. Assessment: 13:08 General: Appears in no apparent distress. comfortable, Behavior is calm, cooperative, rb1 Denies fever. Pain: Complains of pain in left eye Pain currently is 3 out of 10 on a pain scale. Pain began Chaitanya. Neuro: Level of Consciousness is awake, alert, obeys commands, Oriented to person, place, time, situation. Cardiovascular: Capillary refill < 3 seconds is brisk in bilateral fingers. Respiratory: Airway is patent Respiratory effort is even, unlabored, Respiratory pattern is regular, symmetrical. GI: No signs and/or symptoms were reported involving the gastrointestinal system. : No signs and/or symptoms were reported regarding the genitourinary system. EENT: Eyes are tearing on left eye Redness noted to the left eye. Pt. reports itching and the eye was matted shut this morning. Vision is normal. . Derm: Skin is red, Redness noted to the left cheek. Pt. reports the redness on the left cheek started first then moved to the left eye. 13:50 Reassessment: Patient appears in no apparent distress at this time. No changes from tw2 previously documented assessment. Patient and/or family updated on plan of care and expected duration. Pain level reassessed. Patient is alert, oriented x 3, equal unlabored respirations, skin warm/dry/pink. Vital Signs: 12:54 BP 131 / 87; Pulse 58; Resp 18; Temp 97.9; Pulse Ox 96% on R/A; Weight 72.57 kg (R); aj1 Height 5 ft. 4 in. (162.56 cm) (R); Pain 3/10; 13:30 BP 130 / 86; Pulse 60; Resp 16; Pulse Ox 98% on R/A; rb1 12:54 Body Mass Index 27.46 (72.57 kg, 162.56 cm) aj1 ED Course: 12:09 Patient arrived in ED. as 12:53 Triage completed. aj1 12:54 Arm band placed on Patient placed in an exam room. aj1 13:01 Marylu Saab FNP-C is [facility]. snw 13:01 Shlomo Harvey MD is Attending Physician. snw 13:08 Patient has correct armband on for positive identification. Bed in low position. Call rb1 light in reach. Side rails up X 1. Pulse ox on. NIBP on. 13:09 Anjali Marcelino, RN is Primary Nurse. rb1 13:50 No provider procedures requiring assistance completed. Patient did not have IV access tw2 during this emergency room visit. Administered Medications: 13:33 Drug: Tobrex 0.3 % 1 application Route: Ophthalmic; Site: left eye; rb1 Outcome: 13:33 Discharge ordered by . snw 13:51 Discharged to home ambulatory, with significant other. tw2 13:51 Condition: stable 13:51 Discharge instructions given to patient, significant other, Instructed on discharge instructions, follow up and referral plans. Demonstrated understanding of instructions, follow-up care. 13:51 Patient left the ED. tw2 Signatures: Marry Garza RN RN aj1 Marylu Saab, MECHANIC-C MECHANIC-Csnw Sara Abel as Anjali Marcelino, RN RN rb1 Amanda Caballero RN RN tw2
[2019-09-18 14:33] VITALS: BP 131/87; TEMP 97.9; O2SAT 96
== END 2019-09-18 13:51 | disposition home or self-care (01) ==
LOC: ER 12:07
DX: H10.9 Unspecified conjunctivitis (principal); G20 Parkinson's disease; Z86.73 Personal history of transient ischemic attack (TIA), and cerebral infarction without residual deficits; Z88.1 Allergy status to other antibiotic agents; Z88.2 Allergy status to sulfonamides
CPT/HCPCS: 99283

== ENCOUNTER 2019-11-12 20:02 | Emergency (ER) | payer OTHER, MEDICARE ==
--- OUTSIDE RECORDS SUMMARY | 2019-11-12 20:04 | XMS REPORT ---
[...] Start End Date Status Dosage Date Omeprazole [facility] 87580-91 Active not defined 81-02 Tylenol # 3 NDC 0 Active not defined Xarelto [facility] 40241-81 Active not defined 77-10 Carbidopa-Levod [facility] 46365-01 Active not defined opa 12-07 Tylenol # 3 NDC 0 300/30mg PO Q Nov 03, Active one tab 4-6 HRS PRN PAIN 2019 Results No Known Results Summary Purpose eClinicalWorks Submission
--- OUTSIDE RECORDS SUMMARY | 2019-11-12 20:04 | XMS REPORT ---
:1945 [facility] Address [address] [place] [address] Dr. Degroot [address] [place] [id number] Care Team Providers Name Role Phone Unavailable Unavailable Unavailable Problems This patient has no known problems. Allergies, Adverse Reactions, Alerts This patient has no known allergies or adverse reactions. Medications This patient has no known medications.
--- OUTSIDE RECORDS SUMMARY | 2019-11-12 20:04 | XMS REPORT ---
[...] End Date Status Dosage System Date Omeprazole [facility] [id number] Active not defined Xarelto [facility] [address]-15 Active not defined Tylenol # 3 NDC 0 300/30mg PO Q Nov 03, Active one tab 4-6 HRS PRN 2018 PAIN Tylenol # 3 NDC 0 Active not defined Carbidopa-Levo [facility] [address]-12 Active not dopa defined Amoxicillin [facility] 01914704164 875 MG Orally December Active 1 tablet every 12 hrs 2018 Amoxicillin [facility] 44652878551 875 MG Orally December Active 1 tablet TID 2018 Results No Known Results Summary Purpose eClinicalWorks Submission
--- OUTSIDE RECORDS SUMMARY | 2019-11-12 20:04 | XMS REPORT ---
[...] Medications Results No Known Results Summary Purpose eClinicalPlacemeter Submission
--- OUTSIDE RECORDS SUMMARY | 2019-11-12 20:04 | XMS REPORT ---
[...] End Status Dosage System Date Date Carbidopa-Levo [facility] [address]-70 Active not dopa defined Tylenol # 3 NDC 0 Active not defined Omeprazole [facility] 25680984853 Active not defined Xarelto [facility] [address]-20 Active not defined Tylenol # 3 NDC 0 300/30mg PO Q Nov 03, Active one tab 4-6 HRS PRN 2019 PAIN Results No Known Results Summary Purpose eClinicalWorks Submission
--- OUTSIDE RECORDS SUMMARY | 2019-11-12 20:04 | XMS REPORT ---
[...] Start End Date Status Dosage Date Carbidopa-Levod [facility] 36160-91 Active not defined opa 12-07 Xarelto [facility] 84746-78 Active not defined 77-10 [place] [address]-60 Active not defined 81-02 Tylenol # 3 NDC 0 300/30mg PO Q Nov 03, Active one tab 4-6 HRS PRN PAIN 2018 Tylenol # 3 NDC 0 Active not defined Results No Known Results Summary Purpose eClinicalWorks Submission
--- OUTSIDE RECORDS SUMMARY | 2019-11-12 20:04 | XMS REPORT ---
[...] Date Date Carbidopa-Levo [facility] [address]-36 Active not dopa defined Xarelto [facility] [address]-82 Active not defined Tylenol # 3 NDC 0 Active not defined Omeprazole [facility] 63446227512 Active not defined Tylenol # 3 NDC 0 300/30mg PO Q Nov 03, Active one tab 4-6 HRS PRN 2019 PAIN Results No Known Results Summary Purpose eClinicalWorks Submission
--- OUTSIDE RECORDS SUMMARY | 2019-11-12 20:04 | XMS REPORT ---
[...] Medications Results No Known Results Summary Purpose eClinicaliList Submission
--- OUTSIDE RECORDS SUMMARY | 2019-11-12 20:05 | XMS REPORT ---
[...] Date Date Xarelto [facility] [address]-13 Active not defined Omeprazole [facility] [id number] Active not defined Tylenol # 3 NDC 0 300/30mg PO Q Nov 03, Active one tab 4-6 HRS PRN 2019 PAIN Carbidopa-Levo [facility] [address]-32 Active not dopa defined Results No Known Results Summary Purpose eClinicalWorks Submission
--- OUTSIDE RECORDS SUMMARY | 2019-11-12 20:05 | XMS REPORT ---
[...] tab 4-6 HRS PRN 2018 PAIN Xarelto [facility] [address]-71 Active not defined Amoxicillin [facility] 55860979953 875 MG Orally 1 DecemberJanuary 10, Active 1 tablet po BID 2018 Carbidopa-Levod [facility] [address]-52 Active not opa defined Omeprazole [facility] 65319348702 Active not defined Results No Known Results Summary Purpose eClinicalWorks Submission
--- OUTSIDE RECORDS SUMMARY | 2019-11-12 20:05 | XMS REPORT ---
[...] End Date Status Dosage System Date Carbidopa-Levo [facility] [address]-79 Active not dopa defined Amoxicillin [facility] 19698736078 875 MG Orally December Active 1 tablet TID 2018 Xarelto [facility] [address]-33 Active not defined Omeprazole [facility] 54486096764 Active not defined Tylenol # 3 NDC 0 300/30mg PO Q Nov 03, Active one tab 4-6 HRS PRN 2018 PAIN Results No Known Results Summary Purpose eClinicalWorks Submission
--- NOTE | 2019-11-12 20:28 | EDPHYS ---
Physician Documentation [facility] Name: Ning Coffey Age: 73 yrs Sex: Female : 1945 Arrival Date: 11/12/2019 Time: 20:05 Bed 14 Private MD: Alannah Pimentel H ED Physician Hermelindo De Luna HPI: 11/11 20:30 This 73 yrs old Female presents to ER via Ambulatory with complaints of Skin kb Tear(s). 20:31 The patient has a laceration related to: hit arm on closet door. The laceration(s) kb is(are) located on the palmar aspect of left forearm. Onset: The symptoms/episode began/occurred just prior to arrival. Associated signs and symptoms: The patient has no apparent associated signs or symptoms. The patient has not experienced similar symptoms in the past. The patient has not recently seen a physician. Pt reports she has thin skin and she got a skin tear from hitting arm on the closet door. Historical: - Allergies: 20:15 Levaquin; ll1 20:15 Sulfa (Sulfonamide Antibiotics); ll1 - Home Meds: 20:15 Xarelto 15 mg Oral tab daily [Active]; carbidopa-levodopa 25-100 mg Oral tab [Active]; ll1 Omeprazole Oral as needed [Active]; - PMHx: 20:15 CVA; Parkinsons; ll1 - PSHx: 20:15 Hysterectomy; ll1 - Immunization history:: Adult Immunizations up to date, Flu vaccine is up to date. - Social history:: Patient uses alcohol, on a daily basis. Patient/guardian denies using street drugs, tobacco products, Smoking status: Patient/guardian denies using. ROS: 20:29 Constitutional: Negative for fever, chills, and weight loss, Cardiovascular: Negative kb for chest pain, palpitations, and edema, Respiratory: Negative for shortness of breath, cough, wheezing, and pleuritic chest pain, Abdomen/GI: Negative for abdominal pain, nausea, vomiting, diarrhea, and constipation, Back: Negative for injury and pain, : Negative for injury, bleeding, discharge, and swelling, MS/Extremity: Negative for injury and deformity, Neuro: Negative for headache, weakness, numbness, tingling, and seizure. 20:29 Skin: Positive for of the palmar aspect of left forearm, skin tear. Exam: 20:29 Constitutional: This is a well developed, well nourished patient who is awake, alert, kb and in no acute distress. Head/Face: Normocephalic, atraumatic. MS/ Extremity: Pulses equal, no cyanosis. Neurovascular intact. Full, normal range of motion. Neuro: Awake and alert, GCS 15, oriented to person, place, time, and situation. Cranial nerves II-XII grossly intact. Motor strength 5/5 in all extremities. Sensory grossly intact. Cerebellar exam normal. Normal gait. 20:29 Skin: injury, skin tear to left forearm. 20:30 Respiratory: the patient does not display signs of respiratory distress, Respirations: kb normal. Vital Signs: 20:11 BP 136 / 92; Pulse 66; Resp 18; Temp 97.4; Weight 71.67 kg; Height 5 ft. 4 in. (162.56 ll1 cm); Pain 4/10; 20:11 Body Mass Index 27.12 (71.67 kg, 162.56 cm) ll1 MDM: 20:24 Patient medically screened. kb 20:28 Data reviewed: vital signs, nurses notes. Data interpreted: Pulse oximetry: on room air kb is 100 %. Interpretation: normal. Counseling: I had a detailed discussion with the patient and/or guardian regarding: the historical points, exam findings, and any diagnostic results supporting the discharge/admit diagnosis, the need for outpatient follow up, a family practitioner, to return to the emergency department if symptoms worsen or persist or if there are any questions or concerns that arise at home. ED course: Pt does not want a tetanus shot or steri-strips placed. Administered Medications: No medications were administered Disposition: 11/12/19 20:28 Discharged to Home. Impression: Skin tear left forearm. - Condition is Stable. - Discharge Instructions: Skin Tear Care, [id number]. - Medication Reconciliation Form, Thank You Letter, Antibiotic Education, Prescription Opioid Use form. - Follow up: Emergency Department; When: As needed; Reason: Worsening of condition. Follow up: Private Physician; When: 2 - 3 days; Reason: Recheck today's complaints, Continuance of care, Re-evaluation by your physician. Addendum: 11/14/2019 01:30 Co-signature as Attending Physician, Hermelindo De Luna MD. m a2 Signatures: Coco Jacobo, MOOSE-C NURSES EDUCATOR-Ckb Mert Brady Hermelindo De Luna MD MD ma2 Brigid Cat RN RN ll1 Corrections: (The following items were deleted from the chart) 11/11 20:30 20:29 Constitutional: This is a well developed, well nourished patient who is awake, kb alert, and in no acute distress. Head/Face: Normocephalic, atraumatic. Chest/axilla: Normal chest wall appearance and motion. Nontender with no deformity. No lesions are appreciated. Cardiovascular: Regular rate and rhythm with a normal S1 and S2. No gallops, murmurs, or rubs. Normal PMI, no JVD. No pulse deficits. Respiratory: Lungs have equal breath sounds bilaterally, clear to auscultation and percussion. No rales, rhonchi or wheezes noted. No increased work of breathing, no retractions or nasal flaring. Abdomen/GI: Soft, non-tender, with normal bowel sounds. No distension or tympany. No guarding or rebound. No evidence of tenderness throughout. MS/ Extremity: Pulses equal, no cyanosis. Neurovascular intact. Full, normal range of motion. Neuro: Awake and alert, GCS 15, oriented to person, place, time, and situation. Cranial nerves II-XII grossly intact. Motor strength 5/5 in all extremities. Sensory grossly intact. Cerebellar exam normal. Normal gait. kb 20:30 20:29 Constitutional: This is a well developed, well nourished patient who is awake, kb alert, and in no acute distress. Head/Face: Normocephalic, atraumatic. MS/ Extremity: Pulses equal, no cyanosis. Neurovascular intact. Full, normal range of motion. Neuro: Awake and alert, GCS 15, oriented to person, place, time, and situation. Cranial nerves II-XII grossly intact. Motor strength 5/5 in all extremities. Sensory grossly intact. Cerebellar exam normal. Normal gait. kb 20:41 20:28 11/12/2019 20:28 Discharged to Home. Impression: Skin tear left forearm. Condition is Stable. Forms are Medication Reconciliation Form, Thank You Letter, Antibiotic Education, Prescription Opioid Use. Follow up: Emergency Department; When: As needed; Reason: Worsening of condition. Follow up: Private Physician; When: 2 - 3 days; Reason: Recheck today's complaints, Continuance of care, Re-evaluation by your physician. kb
--- NOTE | 2019-11-12 20:28 | ER ---
Nurse's Notes [facility] Name: Ning Coffey Age: 73 yrs Sex: Female : 1945 Arrival Date: 11/12/2019 Time: 20:05 Bed 14 Private MD: Alannah Pimentel H Diagnosis: Skin tear left forearm Presentation: 11/11 20:11 Chief complaint: Patient states: Hit arm on door latch 30 min [employer]. Skin tear left ll1 forearm. Wrap in place. Coronavirus screen: The patient has NOT traveled to a country currently being monitored by the [facility] within the last 14 days. Proceed with normal triage procedures. Ebola Screen: Patient denies travel to an Ebola-affected area in the 21 days before illness onset. Initial Sepsis Screen: Does the patient meet any 2 criteria? No. Patient's initial sepsis screen is negative. Does the patient have a suspected source of infection? No. Patient's initial sepsis screen is negative. Risk Assessment: Do you want to hurt yourself or someone else? Patient reports no desire to harm self or others. 20:11 Method Of Arrival: Ambulatory ll1 20:11 Acuity: DANIELLE 4 ll1 20:11 Chief complaint:. ll1 20:40 Onset of symptoms was November 12, 2019. wh Historical: - Allergies: 20:15 Levaquin; ll1 20:15 Sulfa (Sulfonamide Antibiotics); ll1 - Home Meds: 20:15 Xarelto 15 mg Oral tab daily [Active]; carbidopa-levodopa 25-100 mg Oral tab [Active]; ll1 Omeprazole Oral as needed [Active]; - PMHx: 20:15 CVA; Parkinsons; ll1 - PSHx: 20:15 Hysterectomy; ll1 - Immunization history:: Adult Immunizations up to date, Flu vaccine is up to date. - Social history:: Patient uses alcohol, on a daily basis. Patient/guardian denies using street drugs, tobacco products, Smoking status: Patient/guardian denies using. Screenin:40 Abuse screen: Denies threats or abuse. Denies injuries from another. Nutritional wh screening: No deficits noted. Tuberculosis screening: No symptoms or risk factors identified. Fall Risk None identified. Assessment: 20:39 General: Appears in no apparent distress. Behavior is calm, cooperative, appropriate wh for age. Pain: Denies pain. Neuro: Level of Consciousness is awake, alert, obeys commands, Oriented to person, place, time, situation, Appropriate for age. Cardiovascular: Capillary refill < 3 seconds. Respiratory: Airway is patent Respiratory effort is even, unlabored, Respiratory pattern is regular, symmetrical. GI: Abdomen is flat, non-distended. : No signs and/or symptoms were reported regarding the genitourinary system. EENT: No signs and/or symptoms were reported regarding the EENT system. Derm: skin tear on left forearm. Musculoskeletal: Circulation, motion, and sensation intact. Vital Signs: 20:11 BP 136 / 92; Pulse 66; Resp 18; Temp 97.4; Weight 71.67 kg; Height 5 ft. 4 in. (162.56 ll1 cm); Pain 4/10; 20:11 Body Mass Index 27.12 (71.67 kg, 162.56 cm) ll1 ED Course: 20:05 Patient arrived in ED. es 20:05 Alannah Pimentel DO is Private Physician. es 20:13 Triage completed. ll1 20:16 Arm band placed on Patient placed in an exam room. ll1 20:23 [employer] is Primary Nurse. 20:24 Coco Jacobo FNP-C is PHCP. kb 20:24 Hermelindo De Luna MD is Attending Physician. kb 20:40 Patient has correct armband on for positive identification. Bed in low position. Call light in reach. Side rails up X 1. Pulse ox on. NIBP on. 20:40 No provider procedures requiring assistance completed. Patient did not have IV access during this emergency room visit. Administered Medications: No medications were administered Outcome: 20:28 Discharge ordered by . kb 20:41 Discharged to home ambulatory, with family. 20:41 Condition: stable 20:41 Discharge instructions given to patient, family, Instructed on discharge instructions, follow up and referral plans. wound care, Demonstrated understanding of instructions, follow-up care, wound care. 20:41 Patient left the ED. Signatures: Coco Jacobo FNP-C FNP-Soraya Hubbard [employer] Brigid Cat RN RN ll1 Corrections: (The following items were deleted from the chart) 20:14 20:11 BP 136 / 92; Pulse 92bpm; Resp 18bpm; Temp 97.4F; 71.67 kg; Height 5 ft. 4 in.; ll1 BMI: 27.1; Pain 4/10; ll1
[2019-11-12 21:04] VITALS: BP 136/92; TEMP 97.4
== END 2019-11-12 20:41 | disposition home or self-care (01) ==
LOC: ER 20:02
DX: S51.812A Laceration without foreign body of left forearm, initial encounter (principal); W22.8XXA Striking against or struck by other objects, initial encounter; Y93.9 Activity, unspecified; Y92.9 Unspecified place or not applicable; G20 Parkinson's disease; Z86.73 Personal history of transient ischemic attack (TIA), and cerebral infarction without residual deficits; Z79.01 Long term (current) use of anticoagulants; Z88.1 Allergy status to other antibiotic agents; Z88.2 Allergy status to sulfonamides
CPT/HCPCS: 99283

== ENCOUNTER 2020-08-19 17:29 | Emergency (ER) | payer OTHER, MEDICARE ==
--- OUTSIDE RECORDS SUMMARY | 2020-08-19 17:33 | XMS REPORT | Continuity of Care Document ---
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/23/2020 [place] thrombosis Neuro,MH (disorder) [facility] Parkinson's Active Problem 06/23/2020 [place] disease Neuro (disorder) CVA Active [facility] Medications Medication Details Route Status Patient Ordering Order Source Instructions Provider Date Carbidopa 25 MG 1 tab, PO, TID, # Active 02/21/ [place] / Levodopa 100 90 tab, 6 2019 Neuro MG Oral Tablet Refill(s), [facility]acy: [id number], 160.02, cm, 11/09/18 15:14:00 [employer], Height, 68.182, kg, 11/09/18 15:14:00 [employer], Weight Carbidopa 25 MG 1 tab, PO, TID, # Active 03/08/ [place] / Levodopa 100 90 tab, 4 2018 Neuro MG Oral Tablet Refill(s), Pharmacy: [facility] [id number] Esomeprazole 40 40 mg = 1 cap, Active ischer MG Enteric PO, Daily, 0 2017 Neuro Coated Capsule Refill(s) Carbidopa 25 MG 1 tab, PO, TID, # Active 07/20/ [place] / Levodopa 100 90 tab, 4 2017 Neuro MG Oral Tablet Refill(s), Pharmacy: [facility] [id number] Warfarin Notes: 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07/07/ [place] ensure 2013 Medical documentation of Center patient education per anticoagulation policy. Avoid large intake of vitamin-K containing foods diet. (Same As: Coumadin) atorvastatin 20 20 mg = 1 tab, Active H [place] mg oral tablet PO, Bedtime, # 30 2013 Medical tab, 3 Refill(s) Center aspirin 325 mg 325 mg = 1 tab, Active [place] tablet PO, Daily, # 100 2013 Medical tab, 3 Refill(s) Center warfarin 7.5 mg 7.5 mg, PO, Q5PM, Active [place] oral tablet # 5 tab, 0 2013 Medical Refill(s) Center OLANZapine 2.5 2.5 mg = 1 tab, Active [place] mg oral tablet PO, Q6H, 2014 Medical Agitation, 0 Center Refill(s) 0.4 mg = 1 tab, [place] Multivitamins PO, Daily, 0 2013 Medic al with Folic Acid Refill(s) Center 0.4 mg oral tablet Folic Acid 1 MG 1 mg = 1 tab, PO, Active [facility] Oral Tablet Daily, 0 2013 Medical Refill(s) Center Docusate Sodium 100 mg = 1 cap, Active [place] 100 MG Oral PO, Q12H, 0 2013 Medical Capsule Refill(s) Center benzonatate 100 100 mg = 1 cap, Active [facility] mg oral capsule PO, TID, Cough, 0 2013 Medical Refill(s) Center Acetaminophen 99.5 F, 0 [facility] 2014 Medical Tablet Center Warfarin Notes: 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 Avoid large intake of vitamin-K containing foods diet. (Same As: Coumadin) cefpodoxime 100 mg, Route: Inactive [place] PO, Drug form: 2013 Medical TAB, [id number], Center Dosing Weight 83, kg, Priority: NOW, Start date: 07/06/14 11:17:00, Duration: 7 day, Stop date: 07/12/14 23:17:00 benzonatate Notes: (Same As: No Longer [facility] Simran Red) Active 2013 Medical "Do Not Crush" Center Mag-Ox 400 Notes: (Same as: Inactive [facility] Mag-Ox 400) 2013 [facility] Magnesium oxide [place] [id number] elemental magnesium Dose=____mg magnesium oxide (___mg elemental magnesium) Lactated Ringers 1,000 mL, Rate: Inactive [place] IV 1000 mL 100 ml/hr, Infuse 2013 Med ical over: 10 hr, Center Route: IV, Dosing Weight 83 kg, Total Volume: 1,000, Start date: 07/05/14 11:26:00, Duration: 30 day, Stop date: 08/04/14 11:25:00 Lactated Ringers 1,000 mL, Rate: No Longer 07/05 [place] IV 1,000 mL 100 ml/hr, Infuse Active 2013 Me dical over: 10 hr, Center Route: IV, Dosing Weight 83 kg, Total Volume: 1,000, Priority: STAT, Start date: 07/05/14 10:06:00, Duration: 30 day, Stop date: 08/04/14 10:05:00 Magnesium 2 gm, 50 mL, Inactive [place] Sulfate Route: IVPB, Drug 2013 Medica l form: INJ, ONCE, Center Dosing Weight 83, kg, Total dose = 2 gm, Start date: 07/05/14 10:05:00, Duration: 1 doses or times, Stop date: 07/05/14 10:05:00 normal saline 1,000 mL, Rate: Inactive [facility] 0.9% IV 1,000 mL 125 ml/hr, Infuse [facility] Medical over: 8 hr, Center Route: IV, Dosing Weight 83 kg, Total Volume: 1,000, Start date: 07/05/14 9:24:00, Duration: 1 day, Stop date: 07/06/14 9:23:00 Rocephin Notes: Use with [place] Longer [place] 100ml NS mini-bag Active 2013 Medica l PLUS and infuse Center over 30 min ZyPREXA Notes: (Same as: Inactive [place] ZyPREXA) [address] [place] [address] Geodon 5 mg, Route: IM, Inactive [place] as Q4H, Dosing 2013 Medical Weight 83, kg, Center Start date: 07/04/14 21:00:00, Duration: 30 day, Stop date: 08/03/14 20:00:00 ZyPREXA Notes: (Same as: [place] Longer [place] ZyPREXA) Active [address] [place] [address] folic acid 1 mg Notes: (Same as: No Longer 07/04 [place] oral tablet Folvite) Active [address] [place] [address] Sodium Chloride 250 mL, Rate: 999 Inactive 07/04 [place] 0.9% IV 250 mL ml/hr, Infuse 2013 Med ical over: 0.3 hr, Center Route: IV, Dosing Weight 83 kg, Total Volume: 250, Start date: 07/04/14 14:45:00, Duration: 1 doses or times, Stop date: 07/04/14 15:02:00 Sodium Chloride 500 mL, Rate: 999 Inactive 07/04 [place] 0.9% IV 500 mL ml/hr, Infuse 2013 Med ical over: 0.5 hr, Center Route: IV, Dosing Weight 83 kg, Total Volume: 500, Start date: 07/04/14 14:44:00, Duration: 1 doses or times, Stop date: 07/04/14 15:13:00 Benadryl Notes: (Same as: [place]active [place] Benadryl) [address] [place] [address] Ativan Notes: (Same as: Inactive [place] Ativan) [address] [place] [address] heparin, porcine Notes: porcine No Longer [place] heparin Active [address] [place] [address] aspirin 325 mg Notes: (Do Not No Longer [place] tablet Crush) Do not Active [facility] Medical crush or chew. [place] atorvastatin Notes: (Same As: No Longer [place] Lipitor) Active 2013 [facility] sennosides, CARE HOME Notes: (Same as: No Longer 07/03 [facility] Senokot) Active [address] [place] [address] pantoprazole Notes: For IV Inactive [place] push reconstitute 2014 Medica l with 10 ml 0.9% Center sodium chloride and push over 2 minutes. (Same as: Protonix) Sodium Chloride 1,000 mL, Rate: No Longer [place] 0.154 MEQ/ML 75 ml/hr, Infuse Active [facility] Me dical Injectable over: 13.3 hr, Center Solution Route: IV, Dosing Weight 83 kg, Total Volume: 1,000, Start date: 07/03/14 16:25:00, Duration: 12 hr, Stop date: 07/04/14 4:24:00 Thiamine Notes: (Same As: No Longer [facility] mitesh Vitamin B1) Active 2013 [facility] 1 tab, Route: PO, No Longer [place] Multivitamins Drug Form: TAB, Active 2013 Va dical with Folic Acid Dosing Weight 83, [place] 0.8 mg oral kg, Daily, Start tablet date: 07/03/14 12:00:00, Duration: 30 day, Stop date: 08/02/14 9:00:00 Saline Flush Notes: (Same as: No Longer [facility] 0.9% BD Posiflush) Active 2013 [facility] pneumococcal Notes: (Same as: Inactive [facility] capsular Pneumovax 23) 2013 [facility] polysaccharide Refrigerate Cente r type 1 vaccine / pneumococcal capsular polysaccharide type 10A vaccine / pneumococcal capsular polysaccharide type 11A vaccine / pneumococcal capsular polysaccharide type 12F vaccine / pneumococcal capsular polysacchar Influenza Virus Notes: (Same as: Inactive [facility] Vaccine, Fluzone [address] [place] [address] Inactivated Quadrivalent) [place] [id number]-[id number] 07 (H3N2)-like virus ([id number] [facility] X-175C) strain / Influenza Virus Vaccine, Inactivated K-[id number] 07, IVR-148 (H1N1) strain / Influenza Virus Vaccine, Inactivated, T-Huaqdbz-8-2006 -lik Docusate Notes: (Same as: No Longer [place] velizas Colace) (Do Not Active 2013 [facility]) [place] Diltiazem Notes: (Same as: Inactive [facility] [place] Cardizem) 2013 [facility] magnesium 2 gm, 50 mL, Inactive [facility] sulfate Route: IVPB, Drug 2013 Medica l form: INJ, Q2H, Center Start date: 07/03/14 6:00:00, Duration: 2 doses or times, Stop date: 07/03/14 8:00:00 calcium 3,000 mg, 30 mL, Inactive [place] gluconate + Route: IV, ONCE, 2013 Med ical Sodium Chloride Start date: Cent er 0.9% IV 100 mL 07/03/14 6:00:00, Stop date: 07/03/14 6:00:00 Sodium Chloride 500 mL, 500 Inactive [place] 0.154 MEQ/ML ml/hr, Infuse 2013 Medic al Injectable Over: 1 hr, [place] Solution Route: IV, 500, Drug form: INJ, ONCE, Priority: STAT, Dosing Weight 83 kg, Start date: 07/03/14 3:50:00, Duration: 1 doses or times, Stop date: 07/03/14 3:50:00 Omnipaque 300 50 ml, Route: Inactive [place] INTRAARTERIAL, 2013 Medical Dosing Weight Center 79.545, kg, ONCE, Start date: 07/03/14 0:20:00, Stop date: 07/03/14 0:20:00 Saline Flush Notes: (Same as: No Longer [place] 0.9% BD Posiflush) Active 2013 Medical Center Acetaminophen Notes: Do not No Longer [facility] exceed 4 gm/day. Active 2013 Medical (Same as: Center Tylenol) Bisacodyl Notes: (Same As: No Longer [place] Dulcolax, Active 2013 Medical Bisco-Lax) Center Nicardipine Notes: Same as: No Longer [facility] Cardene Active 2013 Medical Concentration: Center (0.2 mg /1 ml ) Enalapril Notes: (Same as: No Longer [place] Vasotec-IV) Active 2013 Medical Center Labetalol 105mmHg No Longer [facility] Active [address] [place] [address] Center Sodium Chloride 1,000 mL, Rate: No Longer [facility] 0.154 MEQ/ML 75 ml/hr, Infuse Active 2013 Me dical Injectable over: 13.3 hr, [place] Solution Route: IV, Dosing Weight 79.545 kg, Total Volume: 1,000, Start date: 07/02/14 22:10:00, Duration: 30 day, Stop date: 08/01/14 22:09:00 Alteplase 64.4 mg, Route: Inactive [place] IV, ONCE, Dosing 2013 Medical Weight 79.545, Center kg, For Stroke Infusion, Start date: 07/02/14 21:58:00, Stop date: 07/02/14 21:58:00 [place] Notes: (Same as: No Longer [facility] [place] Zofran) Active [address] [place] [address] Zofran 4 mg, Route: IVP, Inactive [place] Drug form: INJ, 2013 Medical ONCE, Dosing Center Weight 79.545, kg, Priority: STAT, Start date: 07/02/14 21:54:00, Stop date: 07/02/14 21:54:00 iodixanol Special Inactive [facility] Instructions: [facility] Medical Dose = 2.2ml/kg, [place] Max dose = 150ml -- "To be infused by Radiology Staff ONLY" aspirin 0 Refill(s) No Longer [facility] Active [address] [place] [address] Saline Flush Notes: (Same as: No Longer [facility] 0.9% BD Posiflush) Active 2013 [facility] Allergies, Adverse Reactions, Alerts Substance Category Reaction Severity Reaction Status Date Comments S ource type Reported sulfa drugs Assertion Drug Active Mi jackie allergy Neuro Polysporin Assertion Drug Active Mis su allergy Neuro Immunizations Immunization Date Given Site Status Last Comments Source Updated pneumococcal 07/04/2014 Left completed [place] Mische r 23-valent vaccine deltoid Ne uro,[facility] influenza virus 07/04/2014 Right completed [place] Mis su vaccine, deltoid Neuro, inactivated [facility] Results Order Name Results Value Reference Date Interpretation Comments Brenda rce Range URINE AND Occult Bld Negative Negative 07/07 [facility] STOOL Stl (07/07/14 3:42 PM) Medic va Center ELECTROLYTE AGAP 14.5 10.0 - 07/07 [facility] S 20.0 [facility] ELECTROLYTE Potassium Lvl 4.5 3.5 - 5.1 07/07 [place] [facility] ELECTROLYTE Sodium Lvl 142 135 - 145 07/07 [place] [facility] ELECTROLYTE Calcium Lvl 8.6 8.5 - 10.5 07/07 [place] [facility] ELECTROLYTE CO2 22 24 - 32 07/07 [place] [facility] ELECTROLYTE Chloride Lvl 110 95 - 109 07/07 [place] [facility] ELECTROLYTE eGFR 58 07/07 <sup>1</sup>R [place] esult Medical Comment: The Center eGFR is [...] ELECTROLYTE Creatinine 1.0 0.5 - 1.4 07/07 [facility] s S Lvl [facility] ELECTROLYTE BUN 23 7 - 22 07/07 [facility] S [facility] ELECTROLYTE Glucose Lvl 97 70 - 99 07/07 <sup>4</sup>I [facility] nterpretive Medical Data: Adult Center reference range values reflect the clinical guidelines
of the [place] [employer]. HEMATOLOGY PT 12.7 12.0 - 07/07 [place] 14.7 [facility] HEMATOLOGY INR 0.95 0.85 - 07/07 <sup>10</sup> [facility] s 1.17 Interpretive Medical Data: Center RECOMMENDED RANGES FOR PROTIME INR:
2.0-3.0 for most medical and surgical thromboemboli c states.
2.5-3.5 for artificial heart valves and recurrent embolism.<br/ >
INR SHOULD BE USED ONLY FOR PATIENTS ON STABLE ANTICOAGULANT THERAPY. HEMATOLOGY RDW 13.8 11.5 - 07/07 [place] 14.5 [facility] HEMATOLOGY RBC 3.59 4.20 - 07/07 [place] 5.40 /2013 [facility] HEMATOLOGY WBC 12.1 3.7 - 10.4 07/07 [place] /2013 [facility] HEMATOLOGY Hgb 11.5 12.0 - 07/07 [place] 16.0 /2013 [facility] HEMATOLOGY Hct 36.0 36.0 - 07/07 [place] 48.0 /2013 [facility] HEMATOLOGY MCV 100.3 80.0 - 07/07 [place] 98.0 /2013 [facility] HEMATOLOGY MCH 32.0 27.0 - 07/07 31.0 [facility] HEMATOLOGY MCHC 31.9 32.0 - 07/07 [place] 36.0 [facility] HEMATOLOGY MPV 11.4 7.4 - 10.4 07/07 [facility] HEMATOLOGY Platelet 175 133 - 450 07/07 [facility] HEMATOLOGY Monocytes 14.9 2.0 - 12.0 07/07 [facility] HEMATOLOGY Eosinophils 3.5 0.0 - 4.0 07/07 [facility] HEMATOLOGY Basophils 0.4 0.0 - 1.0 07/07 [facility] HEMATOLOGY Lymphocytes # 3.9 1.0 - 5.5 07/07 [place] [facility] HEMATOLOGY Monocytes # 1.8 0.0 - 0.8 07/07 [facility] HEMATOLOGY Segs-Bands # 5.9 1.5 - 8.1 07/07 [facility] HEMATOLOGY Eosinophils # 0.4 0.0 - 0.5 07/07 [place] [facility] HEMATOLOGY Macrocyte 1+ None Seen 07/07 [facility] *ABN* /2013 Medical (07/07/14 1:00 AM) [facility] r HEMATOLOGY Lymphocytes 32.6 20.0 - 07/07 [place] 40.0 /2013 [facility] HEMATOLOGY Segs 48.6 45.0 - 07/07 [place] 75.0 /2013 [facility] HEMATOLOGY PT 13.9 12.0 - 07/07 [place] 14.7 [facility] HEMATOLOGY INR 1.07 0.85 - 07/07 <sup>11</sup> [facility] s 1.17 Interpretive Medical Data: Center RECOMMENDED RANGES FOR PROTIME INR:
2.0-3.0 for most medical and surgical thromboemboli c states.
2.5-3.5 for artificial heart valves and recurrent embolism.<br/ >
INR SHOULD BE USED ONLY FOR PATIENTS ON STABLE ANTICOAGULANT THERAPY. HEMATOLOGY PTT 35.0 22.9 - 07/07 <sup>13</sup> [place] 35.8 Interpretive Medical Data: Heparin Center Therapeutic Range: 57 - 92 Seconds ANEMIA Folate Lvl 14.3 >=3.0 07/06 [facility] STUDY ng/mL [facility] ANEMIA Vitamin B12 908 254 - 1320 07/06 [facility] STUDY Lv Medical [place] ANEMIA UIBC 245 110 - 370 07/06 [facility] ANEMIA % Satur Fe 18 12 - 57 07/06 [facility] ANEMIA Iron 52 30 - 160 07/06 [facility] ANEMIA TIBC 297 228 - 428 07/06 [facility] ANEMIA Transferrin 227 212 - 360 07/06 [facility] HEMATOLOGY Monocytes 15.2 2.0 - 12.0 07/06 [facility] HEMATOLOGY Eosinophils # 0.3 0.0 - 0.5 07/06 [facility] HEMATOLOGY Monocytes # 1.6 0.0 - 0.8 07/06 [facility] HEMATOLOGY Basophils 0.4 0.0 - 1.0 07/06 [facility] HEMATOLOGY Eosinophils 3.2 0.0 - 4.0 07/06 [facility] HEMATOLOGY Lymphocytes # 3.4 1.0 - 5.5 07/06 [facility] HEMATOLOGY Segs-Bands # 5.3 1.5 - 8.1 07/06 [facility] HEMATOLOGY Segs 49.6 45.0 - 07/06 [place] 75.0 [facility] HEMATOLOGY Plt Morph Normal 07/06 [facility] (07/06/14 2:30 AM) [facility] HEMATOLOGY Lymphocytes 31.6 20.0 - 07/06 [place] 40.0 [facility] HEMATOLOGY RBC Morph Normal 07/06 [facility] (07/06/14 2:30 AM) [facility] HEMATOLOGY WBC 10.6 3.7 - 10.4 07/06 Medical [place] HEMATOLOGY MCV 97.8 80.0 - 07/06 [place] 98.0 [facility] Center HEMATOLOGY Hct 37.0 36.0 - 07/06 [place] 48.0 [facility] HEMATOLOGY Hgb 12.1 12.0 - 07/06 [place] 16.0 [facility] HEMATOLOGY RBC 3.78 4.20 - 07/06 [place] 5.40 Medical Center HEMATOLOGY MCHC 32.8 32.0 - 07/06 [place] 36.0 /2014 Medical Center HEMATOLOGY MCH 32.1 27.0 - 07/06 [place] 31.0 Medical Center HEMATOLOGY RDW 13.9 11. - 07/06 14. [facility] HEMATOLOGY MPV 12.2 7.4 - 10.4 07/06 [facility] HEMATOLOGY Platelet 167 133 - 450 07/06 [facility] CARDIAC Troponin-T <0.010 0.000 - 07/05 [place] ENZYMES 0.100 [facility] CARDIAC Total CK 123 12 - 191 07/05 ENZYMES [facility] CARDIAC Troponin-I 0.02 0.00 - 07/05 [place] ENZYMES 0.40 [facility] CARDIAC CK MB Index 1.0 0.0 - 2.5 07/05 [facility] CARDIAC CK MB 1.2 0.5 - 3.6 07/05 [facility] HEMATOLOGY Basophils 0.7 0.0 - 1.0 07/05 [facility] HEMATOLOGY Eosinophils 2.4 0.0 - 4.0 07/05 Medical [place] HEMATOLOGY Segs-Bands # 5.3 1.5 - 8.1 07/05 Medical Center HEMATOLOGY Lymphocytes # 2.1 1.0 - 5.5 07/05 [facility] HEMATOLOGY Monocytes # 1.4 0.0 - 0.8 07/05 [facility] HEMATOLOGY Eosinophils # 0.2 0.0 - 0.5 07/05 [facility] HEMATOLOGY Basophils # 0.1 0.0 - 0.2 07/05 Medical Center HEMATOLOGY Segs 58.2 45.0 - 07/05 [place] 75.0 Medical Center HEMATOLOGY Monocytes 15.5 2.0 - 12.0 07/05 [facility] HEMATOLOGY Lymphocytes 23.2 20.0 - 07/05 40.0 Medical Center HEMATOLOGY MCHC 33.0 32.0 - 07/05 [place] 36.0 [facility] HEMATOLOGY RDW 14.0 11.5 - 07/05 14. Medical Center HEMATOLOGY WBC 9.1 3.7 - 10.4 07/05 [facility] Center HEMATOLOGY RBC 3.13 4.20 - 07/05 5.40 /2013 [facility] HEMATOLOGY Hgb 10.1 12.0 - 07/05 16.0 [facility] HEMATOLOGY Platelet 142 133 - 450 07/05 [facility] HEMATOLOGY MPV 12.1 7.4 - 10.4 07/05 [facility] HEMATOLOGY Hct 30.7 36.0 - 07/05 48.0 [facility] HEMATOLOGY MCH 32.3 27.0 - 07/05 31.0 [facility] HEMATOLOGY MCV 98.0 80.0 - 07/05 98.0 [facility] HEMATOLOGY Basophils # 0.1 0.0 - 0.2 07/05 [facility] CHEM PANEL Magnesium Lvl 1.6 1.8 - 2.4 07/05 [facility] CHEM PANEL Phosphorus 3.7 2.5 - 4.5 07/05 [facility] CHEM PANEL eGFR 76 07/05 <sup>2</sup>R [facility] Comment: The Center eGFR is calculated using [...] PANEL CO2 25 24 - 32 07/05 [facility] CHEM PANEL Calcium Lvl 8.3 8.5 - 10.5 07/05 [facility] CHEM PANEL Sodium Lvl 145 135 - 145 07/05 [facility] CHEM PANEL BUN 15 7 - 22 07/05 Medical Center CHEM PANEL Creatinine 0.8 0.5 - 1.4 07/05 [place] [facility] CHEM PANEL Chloride Lvl 112 95 - 109 07/05 [place] [facility] CHEM PANEL Potassium Lvl 4.5 3.5 - 5.1 07/05 [place] [facility] Center CHEM PANEL Glucose Lvl 89 70 - 99 07/05 <sup>5</sup>I nterpretive Medical Data: Adult Center reference range values reflect the clinical guidelines
of the [place] [employer]. CHEM PANEL AGAP 12.5 10.0 - 07/05 [facility] 20.0 [facility] DRUG SCREEN U Phencyc Scr Negative Negative 07/05 [place] *NA* /2013 [facility] (07/04/14 7:50 PM) Cente r DRUG SCREEN UDS Note See Note 8 07/05 <sup>8</sup>I [facility] (07/04/14 7:50 PM) nterpretive M edical Data: Drugs Center reported as positive have not been confirmed by a second
tn thod and should be used for medical [...] SCREEN U Shauna Scr Negative Negative 07/05 [place] *NA* Medical (07/04/14 7:50 PM) Cente r DRUG SCREEN U Benzodia Positive Negative 07/05 [place] *ABN* Medical (07/04/14 7:50 PM) Cente r DRUG SCREEN U Cannab Scr Negative Negative 07/05 [place] *NA* Medical (07/04/14 7:50 PM) Cente r DRUG SCREEN U Cocaine Scr Negative Negative 07/05 [place] *NA* Medical (07/04/14 7:50 PM) Cente r DRUG SCREEN U Opiate Scr Negative Negative 07/05 [place] *NA* Medical (07/04/14 7:50 PM) Cente r DRUG SCREEN U Amph Scr Negative Negative 07/05 [place] *NA* Medical (07/04/14 7:50 PM) Cente r URINE AND UA <=1.0 0.1 - 1.0 07/05 [facility] Urobilinogen mg/dL [facility] URINE AND UA RBC 1 0 - 2 07/05 [facility] URINE AND UA Mucus Few /LPF None Seen 07/05 [facility] STOOL /LPF [facility] URINE AND UA Hyal Cast 1 0 - 2 07/05 [facility] URINE AND UA WBC 9 0 - 5 07/05 [facility] URINE AND UA Glucose Negative Negative 07/05 [facility] mg/dL mg/dL [facility] URINE AND UA Ketones Negative Negative 07/05 [facility] mg/dL mg/dL [facility] URINE AND UA pH 5.0 5.0 - 8.0 07/05 [facility] URINE AND UA Protein Negative Negative 07/05 [facility] mg/dL mg/dL [facility] URINE AND UA Spec Grav 1.010 <=1.030 07/05 [facility] URINE AND UA Leuk Est Moderate Negative 07/05 [facility] STOOL *ABN* Medical (07/04/14 7:50 PM) Cente r URINE AND UA Sq Epi Few /LPF Few /LPF 07/05 [facility] URINE AND UA Bili Negative Negative 07/05 [facility] STOOL *NA* Medical (07/04/14 7:50 PM) Cente r URINE AND UA Blood Negative Negative 07/05 [facility] STOOL (07/04/14 7:50 PM) [facility] URINE AND UA Nitrite Negative Negative 07/05 [facility] STOOL (07/04/14 7:50 PM) [facility] URINE AND UA Color Yellow Yellow 07/05 [facility] STOOL *NA* Medical (07/04/14 7:50 PM) Cente r URINE AND UA Turbidity Clear Clear 07/05 [facility] STOOL (07/04/14 7:50 PM) [facility] CHEM PANEL Lactic Acid 1.0 0.5 - 2.2 07/04 l [facility] CHEM PANEL Globulin 2.5 2.0 - 4.0 07/04 [facility] CHEM PANEL A/G Ratio 1.3 0.7 - 1.6 07/04 [facility] CHEM PANEL Bili Indirect 0.3 0.0 - 1.0 07/04 [facility] CHEM PANEL Total Protein 5.7 6.4 - 8.4 07/04 [facility] CHEM PANEL Alk Phos 61 39 - 136 07/04 [facility] CHEM PANEL Albumin Lvl 3.2 3.5 - 5.0 07/04 [facility] CHEM PANEL ALT 21 0 - 65 07/04 [facility] CHEM PANEL AST 16 0 - 37 07/04 [facility] CHEM PANEL Bili Direct 0.1 0.0 - 0.3 07/04 [facility] [facility] CHEM PANEL Bili Total 0.4 0.2 - 1.3 07/04 [facility] CHEM PANEL Phosphorus 3.3 2.5 - 4.5 07/04 [facility] CHEM PANEL Magnesium Lvl 1.8 1.8 - 2.4 07/04 [facility] CHEM PANEL eGFR 66 07/04 <sup>3</sup>R [...] CHEM PANEL AGAP 11.5 10.0 - 07/04 20. [facility] CHEM PANEL Calcium Lvl 8.3 8.5 - 10.5 07/04 [facility] CHEM PANEL Sodium Lvl 144 135 - 145 07/04 [facility] CHEM PANEL Potassium Lvl 4.5 3.5 - 5.1 07/04 [place] [facility] CHEM PANEL Chloride Lvl 113 95 - 109 07/04 s [facility] CHEM PANEL CO2 24 24 - 32 07/04 [facility] CHEM PANEL Glucose Lvl 107 70 - 99 07/04 <sup>6</sup>I nterpretive Medical Data: Adult Center reference range values reflect the clinical guidelines
of the [place] [employer]. CHEM PANEL BUN 12 7 - 22 07/04 [facility] CHEM PANEL Creatinine 0.9 0.5 - 1.4 07/04 [facility] HEMATOLOGY INR 1.14 0.85 - 07/04 <sup>[place]</sup> [place] 1.17 Interpretive Medical Data: Center RECOMMENDED RANGES FOR PROTIME INR:
2.0-3.0 for most medical and surgical thromboemboli c states.
2.5-3.5 for artificial heart valves and recurrent embolism.<br/ >
INR SHOULD BE USED ONLY FOR PATIENTS ON STABLE ANTICOAGULANT THERAPY. HEMATOLOGY PTT 26.0 22.9 - 07/04 <sup>14</sup> [place] 35.8 Interpretive Medical Data: Heparin Center Therapeutic Range: 57 - 92 Seconds HEMATOLOGY PT 14.7 12.0 - 07/04 [facility] . [facility] Center PARATHYROID Ca Norm WB 1.06 1.05 - 07/04 [facility] PROFILE 10.01 [facility] PARATHYROID Ca Ion WB 1.06 1.05 - 07/04 [facility] PROFILE 10.01 Medical Center DRUG SCREEN UDS Note See Note 9 07/03 <sup>9</sup>I [facility] * nterpretive Medical (07/03/14 10:50 AM) Data: Drugs Center reported as positive have not been confirmed by a second
tn thod and should be used for medical [...] SCREEN U O[place]ate Scr Negative Negative 07/03 [place] *NA* Medical (07/03/14 10:50 AM) Cent er DRUG SCREEN U Phencyc Scr Negative Negative 07/03 [place] Medical (07/03/14 10:50 AM) Cent er DRUG SCREEN U Cocaine Scr Negative Negative 07/03 [place] *NA* Medical (07/03/14 10:50 AM) Cent er DRUG SCREEN U Benzodia Negative Negative 07/03 [place] *NA* Medical (07/03/14 10:50 AM) Cent er DRUG SCREEN U Cannab Scr Negative Negative 07/03 [place] *NA* Medical (07/03/14 10:50 AM) Cent er DRUG SCREEN U Amph Scr Negative Negative 07/03 [place] *[place] Medical (07/03/14 10:50 AM) Cent er DRUG SCREEN U Shauna Scr Negative Negative 07/03 [place] *[place] Medical (07/03/14 10:50 AM) Cent er LIPIDS CHD Risk 1.95 3.90 - 07/03 [facility] 5.80 [facility] LIPIDS VLDL 8 07/03 [facility] LIPIDS LDL 72 <=99 mg/dL 07/03 [facility] (Calculated) [facility] LIPIDS Trig 42 <=149 07/03 [facility] mg/dL [facility] LIPIDS Chol 164 <=199 07/03 [facility] mg/dL [facility] LIPIDS HDL 84 >=61 mg/dL 07/03 <sup>7</sup>[place] esult Medical Comment: Center Specimen Slightly Hemolyzed. SPECIAL Hgb A1C 4.9 <=5.6 % 07/03 [facility] CHEMISTRY [facility] URINE AND UA <=1.0 0.1 - 1.0 07/03 [facility] STOOL Urobilinogen mg/dL [facility] URINE AND UA Bacteria Occasional None Seen 07/03 [place] STOOL /HPF /HPF /2013 [facility] URINE AND UA Mucus Few /LPF None Seen 07/03 [place] STOOL /LPF /2013 [facility] URINE AND UA Amorph Occasional None Seen 07/[place] /HPF /HPF /2013 [facility] URINE AND UA Sq Epi Occasional Few /LPF 07/03 [facility] STOOL /LPF [facility] URINE AND UA WBC 4 0 - 5 07/03 [facility] STOOL [facility] URINE AND UA Nitrite Negative Negative 07/03 [facility] STOOL (07/03/14 10:50 AM) /2013 [facility] URINE AND UA Blood Negative Negative 07/03 [facility] STOOL (07/03/14 10:50 AM) [facility] URINE AND UA Ketones Negative Negative 07/03 [facility] mg/dL mg/dL [facility] URINE AND UA RBC 2 0 - 2 07/03 [facility] STOOL [facility] URINE AND UA Leuk Est Negative Negative 07/03 [facility] STOOL (07/03/14 10:50 AM) [facility] URINE AND UA Color Light Yellow Yellow 07/03 [facility] STOOL *NA* /2013 Medical (07/03/14 10:50 AM) Cent er URINE AND UA pH 5.0 5.0 - 8.0 07/03 [facility] STOOL [facility] URINE AND UA Bili Negative Negative 07/03 [facility] STOOL *NA* [facility] (07/03/14 10:50 AM) Cent er URINE AND UA Glucose Negative Negative 07/03 [facility] mg/dL mg/dL [facility] URINE AND UA Turbidity Slight Clear 07/03 [facility] *ABN* Medical (07/03/14 10:50 AM) Cent er URINE AND UA Spec Grav 1.007 <=1.030 07/03 [facility] URINE AND UA Protein Negative Negative 07/03 [facility] mg/dL mg/dL [facility] BACTERIAL - MRSA by PCR Negative 16 07/03 <sup>16</sup > [facility] (07/03/14 3:11 AM) Interpretive Medical [...] by the [facility] within the [facility]. The [facility] is authorized under the Clinical Laboratory Improvement Amendment of 1988 (CLIA-88) to perform high complexity testing. CARDIAC Troponin-I <0.02 0.00 - 07/03 [place] ENZYMES 0.40 [facility] CARDIAC Total CK 51 12 - 191 07/03 [facility] CHEM PANEL Phosphorus 2.8 2.5 - 4.5 07/03 [facility] CHEM PANEL Magnesium Lvl 1.7 1.8 - 2.4 07/03 [place] [facility] CHEM PANEL Total Protein 5.6 6.4 - 8.4 07/03 [place] [facility] CHEM PANEL Albumin Lvl 3.0 3.5 - 5.0 07/03 [place] [facility] CHEM PANEL Globulin 2.6 2.0 - 4.0 07/03 [facility] CHEM PANEL A/G Ratio 1.2 0.7 - 1.6 07/03 [facility] CHEM PANEL ALT 26 0 - 65 07/03 [facility] CHEM PANEL Alk Phos 66 39 - 136 07/03 [facility] CHEM PANEL AST 18 0 - 37 07/03 [facility] CHEM PANEL Bili Indirect 0.1 0.0 - 1.0 07/03 [place] [facility] CHEM PANEL Bili Total 0.2 0.2 - 1.3 07/03 [facility] CHEM PANEL Bili Direct 0.1 0.0 - 0.3 07/03 [facility] HEMATOLOGY PTT 28.0 22.9 - 07/03 <sup>15</sup> [place] 35.8 Interpretive Medical Data: Heparin Center Therapeutic Range: 57 - 92 Seconds PARATHYROID Ca Norm WB 1.01 1.05 - 07/03 [place] PROFILE 1. [facility] PARATHYROID Ca Ion WB 1.04 1.05 - 07/03 [place] PROFILE 1. [facility] CARDIAC Troponin-T 0.031 0.000 - 07/03 [place] ENZYMES 0.100 [facility] BLOOD BANK Antibody Scrn Negative 07/03 [place] RESULTS (07/02/14 11:20 PM) /2013 [facility] BLOOD BANK ABO/Rh O POS 07/03 [place] RESULTS [facility] CARDIAC Troponin-I <0.02 0.00 - 07/03 [place] ENZYMES 0.40 [facility] CARDIAC Total CK 59 12 - 191 07/03 [facility] [place] ENZYMES /2013 [facility] CARDIAC CK MB 0.7 0.5 - 3.6 07/03 [facility] ENZYMES [facility] CARDIAC CK MB Index 1.2 0.0 - 2.5 07/03 [facility] ENZYMES [facility] HEMATOLOGY Basophils # 0.0 0.0 - 0.2 07/03 [place] [facility] HEMATOLOGY RBC Morph Normal 07/03 [facility] (07/02/14 10:15 PM) [facility] HEMATOLOGY Plt Morph Normal 07/03 [facility] (07/02/14 10:15 PM) [facility] CHEM PANEL POC 1.2 0.5 - 1.4 07/03 [facility] Creatinine [facility] Pathology Reports No Data Provided for This Section Diagnostic Reports No Data Provided for This Section Consultation Notes No Data Provided for This Section Discharge Summaries No Data Provided for This Section History and Physicals No Data Provided for This Section Vital Signs Vital Sign Value Date Comments Source Heart Rate 87 03/08/2019 [facility] Respitory Rate 16 03/08/2019 [facility] Systolic (mm Hg) 119 03/08/2019 [facility] [place] [facility] Diastolic (mm Hg) 77 03/08/2019 [facility] Height 162.56 cm 07/20/2018 [facility] BMI Calculated 25.8 07/20/2018 [facility] Weight 68.182 07/20/2018 [facility] Heart Rate 71 07/20/2018 [facility] Respitory Rate 16 07/20/2018 [facility] Systolic (mm Hg) 124 07/20/2018 [facility] [place] Diastolic (mm Hg) 82 07/20/2018 [facility] Ne uro Systolic (mm Hg) 147 07/08/2014 [facility] Center Respitory Rate 35 07/08/2014 [facility] kami Center Diastolic (mm Hg) 74 07/08/2014 [facility] Respitory Rate 22 07/07/2014 [facility] kami Center Diastolic (mm Hg) 68 07/07/2014 [facility] Respitory Rate 20 07/07/2014 [facility] kami Center Systolic (mm Hg) 126 07/07/2014 [facility] Center Diastolic (mm Hg) 75 07/07/2014 [facility] Systolic (mm Hg) 118 07/07/2014 [facility] Heart Rate 69 07/04/2014 [facility] Heart Rate 72 07/04/2014 [facility] Heart Rate 67 07/04/2014 [facility] Height 162.56 cm 07/03/2014 [facility] Weight 83 07/03/2014 [facility] BMI Calculated 31.41 07/03/2014 [facility] Height 162.56 cm 07/03/2014 [facility] Weight 83 07/03/2014 [facility] BMI Calculated 31.41 07/03/2014 [facility] Temperature Oral (F) 97.0 F 07/03/[address] [facility] Temperature Oral (F) 97.9 F 07/03/[address] [facility] BMI Calculated 30.1 07/03/2014 [facility] Weight 79.545 07/03/2014 [facility] Height 162.56 cm 07/03/2014 [facility] Encounters Location Location Encounter Encounter Reason Attending ADM DC Stat us Source Details Type Number For Provider Date Date Visit [facility] [id number] [place] 07/03 07/08 [facility] Outpatient [id number] SONIA 12/15 Active [facility] [place] Outpatient [id number] SONIA 03/16 Active [facility] Outpatient [id number] SONIA 07/20 Active [facility] Outpatient [id number] Sonia 07/20 07/21 [facility] [place] [facility] [id number] SONIA 11/09 Active [facility] [place] Outpatient [id number] Sonia 03/08 Active [facility] [place] [facility] Outpatient [id number] Sonia 03/08 03/09 [facility] [place] [facility] [id number] Sonia 09/13 Active [facility] [place] [facility] Ambulatory [id number] Sonia 09/13 09/13 [facility] [place] [facility] [id number] Sonia 11/14 Active [facility] [place] [facility] Amb[facility] [id number] Sonia 11/14 11/14 [facility] [place] [facility] [id number] Sonia 02/21 Active [facility] [place] [facility] Outpatient [id number] Sonia 02/21 02/22 [facility] [place] Out[facility] [id number] Sonia 06/20 Active [facility] [place] Outpatient [id number] Sonia 06/20 Active [facility] [place] [facility] Outpatient [id number] Sonia 06/20 06/21 [facility] [place] [facility] [id number] Sonia 06/20 06/20 [facility] [place] [facility] [id number] Sonia 12/19 Active [facility] [place] Procedures Procedure Code Date Perfomer Comments Source Splenectomy [id number] [facility] Assessment and Plan Assessment and Plan Date Source Extracted from:Title: Progress Note * 07/08/2014 [facility] Author: Yousif Arrieta MD Date: 07/07/14 Impression and Plan Hypotension: - resolved UTI: - Cultures growing enterococcus, but not in signifcant range - pt does not have any symptoms, no feve r, WBC slightly elevated but no left shift [...] sub q. DISPO: [place] in patient rehab [facility] [place]. Pager [phone] Extracted from:Title: Clinical Document Author: Nidhi Muñiz DO Date: 07/05/14 Neurorehabilitation Consult Requesting Physician: Dr. Guzmán Consulting Physician: Dr. Muñiz Reason: Evaluate for acute inpatient rehab program Chief Complaint: fall, headache, word salad 68 yo LH F grocery shopping, fell backwa rds, caught by bystanders, did not hit head or lose consciousness, brought her home. Developed migraine headache, l visual disturbance, and near fall again, called 911, admit [facility] 07/02/14 L humerus/forearm x-rays negative for fr acture, EKG A -fib, diagnosed R MCA/collar closer lockstitch/cerebellar infarct s/p iv tpa, cta showed R M1 occlusion and R distal collar closer lockstitch occlusion s/p thrombectomy with recanalization o f RM1. Course c/b change in mental stat us -?UTI, ucx, negative, treated with ceftriaxone and hypotension for which medicine service is evaluating patient. Pt reports improving left sided strength. Pt is nervous, but not agitated. evalua luis by psychiatry, recommended for zyprexa prn ROS: denies fever/chills/suggs/cp/sob/n/v/d /new numbness or new weakness. states her vision in left eye is not as clear as right eye - started during headache prior to admit PMHX: migraine PSHX: splenectomy ALLERGIES: sulfa CURRENT MEDS: Scheduled Meds (10): 07/03/14 aspirin (aspirin 325 mg tablet) 325 mg PO Daily 07/03/14 atorvastatin 20 mg PO Bedtime 07/05/14 cefTRIAXone (Rocephin) 1 gm IVPB [id number] 07/03/14 docusate 100 mg PO Q12H 07/04/14 folic acid (folic acid 1 mg oral tablet) 1 mg PO Da thalia 07/04/14 heparin 5,000 unit SUB-Q Q8H 07/03/14 multivitamin, ([place] l Multivitamins with Folic Acid 0.8 mg oral tablet) 1 tab PO Daily 07/03/14 senna 8.6 mg PO BID 07/03/14 sodium chloride (Saline Flush 0.9%) 10 ml IVP Q12H 07/03/14 thiamine 100 mg PO Daily Unscheduled Meds: None PRN Meds (7): 07/04/14 OLANZapine (ZyPREXA) 2.5 mg PO Q6H 07/02/14 acetaminophen 650 mg PO Q4H 07/02/14 bisacodyl 10 mg LA Daily 07/02/14 enalapril 0.625 mg IVP Q6H 07/02/14 labetalol 10 mg IVP Q10Min 07/02/14 ondansetron (Zofran) 4 mg IVP Q8H 07/02/14 sodium chloride (Saline Flush 0.9%) 10 ml IVP PRN One Time Meds (1): 07/05/14 (Completed) magnesium sulfate 2 gm IVPB ONCE 25 ml/ hr Continuous Infusions (1): 07/05/14 Lactated Ringers Injection IV 1 ,000 mL (Lactated Ringers IV 1,000 mL) 1,000 mL 100 ml/hr FAMILY HX: no history of stroke SOCIAL HX: lives with , 1st floor set up, + 24 hour supervision. no tob/etoh/ivda FUNCTIONAL HX: independent with adls/ambulation, no AD VS Vitals Tmp(F) Tmp(C) Ttype BP MAP Pulse RR SpO2 FIO2 ETCO2 07/05 13:00 ---- ---- ---- 1 1564 87 74 25 --- --- --- 07/05 12:57 ---- ---- ---- - ---- --- 72 16 --- --- --- 07/05 12:28 98.7 37.06 axil ----- --- --- -- --- --- --- 07/05 12:00 ---- ---- ---- 1 55/70 100 --- -- 98 --- --- 07/05 11:00 ---- ---- ---- 1 46/80 103 80 -- 84 --- --- GEN: [...] LVEF, LA mildly dilated, no thrombus, no sh unt 07/03 CTA: 1. Segmental occlusion of the right midd le cerebral artery, M1 segment with collateralization to the right M2 and M3 segments distally. 2. Occlusion of the distal right posterior cerebral artery, P3 branches. 3. Acute ischemia of the right middle ce rebral artery territory, and right occipital lobe, posterior cerebral artery territory. 4. 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 07/02 HCT: 2. Acute right middle cerebral artery te rritory infarct involving the anterior insula. 3. Acute right CERTIFIED ALCOHOL AND DRUG COUNSELOR territory infarct. 4. Infarct of the inferior right cerebel lar hemisphere possibly acute as well. MR with [...] ap 61 ASSESSMENT:68 yo LH F admit [facility] 07/02/14 diagnosed R MCA/collar closer lockstitch/cerebellar infarct with functional deficits of subjectively decreased vision L eye, L leg>L arm weakness, L>R dysmetria. RECOMMEND: Neurorehabilitation PT/OT/ST. cleared for regular diet with thin liquids. Medical R MCA/CERTIFIED ALCOHOL AND DRUG COUNSELOR/R cerebellar hemisphere infarc t s/p iv tpa and thrombectomy: etiology likely cardioembolic per stroke team, asa/statin for secondary stroke prevention for now A fib: rate controlled ? UTI: ucx negative, consider dc ceftriaxone s/p fall: no pain, x-rays forearm/humerus negative for fract ure agitation: zyprexa prn : check pvrs every 4 hours, straight cath if >250cc Prophylaxis DVT Proph: SQH GI Proph: docusate Skin: frequent position changes every 4-6 hours to prevent ulcers Disposition Based on current functional status, pt w ill benefit from acute inpatient rehabilitation program when medically ready - prefers rehab near home. Appreciate Consult. Extracted from:Title: Clinical Document Author: Klaus Holly MD Date: 07/02/14 STROKE TEAM / NEUROLOGY - HISTORY AND PHYSICAL Attending of Record: Dr. 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 [...] cramps LYMPH/IMMUNO: No lymph node enlargement/tenderness, no heat/ cold intolerance PAST MEDICAL HISTORY: as above PAST SURGICAL HISTORY: splenectomy FAMILY MEDICAL HISTORY: noncontributory SOCIAL HISTORY: Lives with MEDICATIONS: occasionally takes aspirin ALLERGIES: sulfa drugs PHYSICAL EXAM: Physical Exam: HEAD - Normocephalic and atraumatic LUNGS - Clear to auscultation, no rales or rhonchi CVS - Rate rhythm regular, no murmu r, no carotid bruit, equal pulses bilaterally ABDOMEN - Soft, non tender, with no rmal bowel sounds. 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 Level of Consciousness; 0-alert 1-drowsy 2-stupor 3 -comatose 0 1b. LOC Questions month and age; 0-both 1-one 2-neit her 0 1c. LOC Commands open/close eyes, gr ip/release non-paretic hand; 0-both 1- one 2-neither 1 2. Best Gaze; 0-nl 1-partial 2-forced gaze 1 3. Visual Emery; 0-No visual loss. 1- Partial hemianopia 2-Complete 3-Bilateral 2 4. Facial Palsy; 0-none 1-minor 2-partial [...] 3-mute 1 12. Dysarthria; 0-nl 1-mild/mod 2-severe x-unte stable 2 13. Extinction and Inattention (former ly Neglect); 0-none 1-partial 2-complete TOTAL SCORE 13 SIGNIFICANT LABS: 24hr Labs [...] a history of DVT in the right l eg 4 years ago, presenting with dysarthria, left sided weakness, left facial droop, last seen normal at 8:15pm, concerning for an acute stroke. CTH showed no hemo rrhage and CTA showed a left M1 occlusio n. She received IV TPA at 21:48, 7.2mg bolus followed by 64.4mg infusion over 1 hour. She was taken to [place] for Solitaire thrombectomy, recanalized solitaire x1 at 12:15am. PLAN Admit to ICU. Post IV t-PA care per protocol. Goal BP post-tPA < 180/105. IV NS 75 cc/h Telemetry CXR EKG HOB flat No aspirin or heparin products for 24 hours post-t-PA, per p rotocol. Atorvastatin 80mg daily has been ordered. MRI brain to evaluate for infarct. TTE to evaluate for cardiac source of embolus. Check fasting lipid panel and HbA1c. Treat fevers and blood sugars aggressively. 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 NPO prior to bedside swallow assessment; and escalation of care as determined by nurse DVT prophylaxis with SCDs. 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 Dominguez, the fellow professional services manager. Klaus Holly MD PGY2 Neurology Resident MSO [phone] Pager [phone] Addendum by Brissa Dominguez MD on 07/03/2014 02:05 Stroke Fellow Addendum Please refer to the resident physician's note above for full details. I have discussed the case with the professional services manager resident and agree with their assessment with the following additions/exceptions: She is a 68yo left handed woman with h/o splenectomy and possible DVT 4 years ago, who presents today with acute onset of a R MCA syndrome, onset 20:15pm, witnessed by . She had dysarthria, and l eft sided weakness, en route she was not ed to be in afib (new dx). On arrival, she was slightly drowsy but oriented and communicative, signifcant left sided spatial, visual, sensory neglect, R gaze pref erence, L facial droop, dysarthria, and a left hemiparesis, NIHSS=14. She was complaining of a headache that started a week ago but now worse. She described it as a "sinus" headache. Head CT s howed old R CERTIFIED ALCOHOL AND DRUG COUNSELOR territory and R cerebell ar infarcts though she denies a h/o strokes. [...] of tPA , specifically hemorrhage which can incl ude intracranial hemorrhage. Given severity of stroke, we would recommend treating and she provided verbal consent. tPA was given at 21:48. Her CTA showed a right M1 cut off with large perfusional misma tch. Thus, the neuroIR team was also consulted to evaluate for IAT and we were in agreement that she would be a good IAT candidate. tPA infusion was interrupted f or worsened/severe headache with new [place]ern[place] sea but head CT was negative for hemorrhage. During this, her arrived and I was able to consent him for the procedure at around 22:35. She was taken to I R, procedure started 23:38 and angio dem onstarted R M1 occlusion and also incidental Acomn aneurysm; recanalization acheived at 00:15 with solitare x 1. She had a transient hypotension with anesthesia i nduction, and required intermittent pres sors during the procedure. Shortely after the procedure, she was awake, talking, following commands, resolved gaze preference, improving neglect. She was also abl e to lift her left arm antigravity acros s her chest. Her leg was not antigravity but she began to have more movement in her toes and now had some withdraw there. I spoke to her and her more to g ather a more detailed history and she suggs s a h/o migraines with visual auras which began only 1 year ago where she sees flashing lights followed by an intense headache. Upon asking specifically about her vision, she describes a left sided visu al field defect since around 4 days ago. This was followed by a headache. Around that time, she also sustained a fall from dizziness at a grocery store, fallng in to a shelf with glass, thus sustaining s ome of the cuts in her forearm but no fractures. STROKE TEAM / NEUROLOGY - NIHSS NIH Stroke Scale (NIHSS) 1a. Level of Consciousness; ___0-alert __X_1-drowsy ___2-alison por ___3-comatose 1b. LOC Questions month and age; __X_0-both ___1-one ___2-ne ither 1c. 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 Best Gaze; ___0-nl __X_1-partial ___2-forced gaze 3. Visual Emery; ___0-No visual loss. _ __1-Partial hemianopia __X_2-Complete ___3-Bilateral 4. Facial Palsy; ___0-none ___1-minor _X__2-partial ___3-com plete 5. Motor - R arm; _X__0-No drift ___1-Dr ift ___2-Some antigravity ___3-No antigravity ___4-No movement 6. Motor - R leg; _X__0-No drift ___1-Dr ift ___2-Some antigravity ___3-No antigravity ___4-No movement 7. Motor - L arm; ___0-No drift ___1-Dri ft ___2-Some antigravity __X_3-No antigravity ___4-No movement 8. Motor - L leg; ___0-No drift ___1-Dri ft ___2-Some antigravity _X__3-No antigravity ___4-No movement 9. Limb Ataxia; __X_0 absent ___1 - 1limb ___2 - 2 limbs 10. Sensory; __X_0-nl ___1-partial loss ___2-dense loss 11. Best Language; _X__0-nl ___1-mild/mod ___2-severe ___3-m dario 12. Dysarthria; ___0-nl _X__1-mild/mod ___2-severe ____x-un testable 13. 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 Etiology is likely cardioemoblic. She has a prior R CERTIFIED ALCOHOL AND DRUG COUNSELOR and R cerebellar infarct however the y radiographically appear older than jus t 4 days ago but if this event 4 days ago does represent a recent stroke, she would be at increased risk for hemorragic conversion. [] repeat head CT @ 6am to look monitor for hemorrhagic conv ersion - Post tPA vital signs and neurochecks per protocol - Goal [id number] - HOB flat, NS 125cc/hr, aggressive blood glucose control, n ormothermia - MRI Brain - TTE - A1c, [...] History Date Source Social History TypeResponse 07/03/2014 [facility] Substance Abuse Use: None Alcohol Use: Current, Type: Wine, Frequency: Daily Smoking Status Former smoker, Type: Cigarettes, Exposur e to Tobacco Smoke None, Cigarette Smoking Last 365 Days No, Reg Smoking Cessation Counseling No Social History TypeResponse 07/03/2014 [facility] Alcohol Current, Type Wine. Frequency: Daily. Substance Abuse Use: None. Smoking Status Former smoker; Type: Cigarettes; Exposur e to Tobacco Smoke None; Cigarette Smoking Last 365 Days No; Reg Smoking Cessation Counseling No entered on: 06/20/20 Family History No Data Provided for This Section Advance Directives No Data Provided for This Section Functional Status No Data Provided for This Section
--- OUTSIDE RECORDS SUMMARY | 2020-08-19 17:33 | XMS REPORT | Summary of Care ---
:1945 Author Organization [facility] Address [address] [place] [address]- phone Encounter HQ Jenae_alejandra(FIN) [id number] Date(s): 06/20/20 - 06/20/20 [facility], [place] [address] [place] [address] [phone] Attending Physician: Tad Velasquez MD Referring Physician: Tad Velasquez MD Vital Signs No data available for this section Problem List Condition Effective Dates Status Health Status Informant Atrial fibrillation(Confirmed) Active DVT (deep venous Resolved thrombosis)(Confirmed) Parkinson disease(Confirmed) Active Allergies, Adverse Reactions, Alerts Substance Reaction Severity Status sulfa drugs Active Polysporin Active Medications No data available for this section Results No data available for this section Immunizations Given and Recorded Vaccine Date Status Refusal Reason pneumococcal 23-valent vaccine 07/04/14 Given influenza virus vaccine, inactivated 07/04/14 Given Procedures Procedure Date Related Diagnosis Body Site Status Splenectomy Completed Social History Social History Type Response Alcohol Current, Type Wine. Frequen cy: Daily. Substance Abuse Use: None. Smoking Status Former smoker; Type: Cigaret susan; Exposure to Tobacco Smoke None; Cigarette Smoking Last 365 Days No; Reg Smoking Cessation Counseling No entered on: 06/20/20 Assessment and Plan No data available for this section
--- OUTSIDE RECORDS SUMMARY | 2020-08-19 17:33 | XMS REPORT | Summary of Care ---
:1945 Author Organization [facility] [place] Address [address] [place] [address]- Encounter HQ Jenae_alejandra(FIN) [id number] Date(s): 06/20/20 - 06/20/20 [facility] [address] [place] [address]- [phone] Discharge Disposition: Home or Self Care Attending Physician: Tad Velasquez MD Referring Physician: Tad Velasquez MD Vital Signs No data available for this section Problem List Condition Effective Dates Status Health Status Informant Atrial fibrillation(Confirmed) Active DVT (deep venous Resolved thrombosis)(Confirmed) Parkinson disease(Confirmed) Active Allergies, Adverse Reactions, Alerts Substance Reaction Severity Status sulfa drugs Active Polysporin Active Medications No Known Medications Results No data available for this section [...]
--- OUTSIDE RECORDS SUMMARY | 2020-08-19 17:34 | XMS REPORT | Continuity of Care Document ---
:1945 Author Organization [facility] t Address [address] [place] [id number] Care Team Providers Name Role Phone Tad Velasquez Attending Clinician Greg DORMAN, A Attending Clinician Only, Test Attending Clinician Unavailable Pimentel Attending Clinician 1, Lab Attending Clinician Unavailable Mat Attending Clinician Greg DORMAN, A Admitting Clinician Mat Admitting Clinician Problems Condition Condition Condition Status Onset Resolution Last Treating Co mments Source Name Details Category Date Date Treatment Clinician Date ACUTE Diagnosis Active 2013-092014-08-16 Mem oria STROKE 0-26 11:11:00 l ACUTE 00:00: Brandon STROKE 00 Active 07/02/2014 [facility] CVA Diagnosis Active 2013-092014-07-02 Mem oria 0-26 22:35:00 l CVA 00:00: Brandon 00 Active 07/02/2014 [facility] SARAH Diagnosis Active 2013-092014-07-03 Memoria BILLING 0-26 11:00:00 l 00:00: Brandon SARAH 00 BILLING Active 07/02/2014 [facility] Closed Closed Problem [facility] fracture Memori a of right of right l radius, radius, Outpati initial initial ent encounter encounter Clin ics Pain in Pain in Problem Active [facility] - right right Memoria wrist wrist l Outpati ent Clinics Closed Closed Problem Active [facility] - fracture fracture Memori a of right of right l radius radius Outpati with with ent routine routine Clinics healing, healing, subsequent subsequent encounter encounter Abrasion Abrasion Problem [facility] - elbow, elbow, Memoria initial initial l encounter encounter Outp ati ent Clinics Cellulitis Cellulitis Problem Active [facility] of right of right [facility] - forearm forearm [facility]oria l Outpati ent Clinics Abrasion Abrasion Problem [facility] right [facility] - elbow, elbow, Memoria subsequent subsequent l encounter encounter Outp ati ent Clinics Impetigo Impetigo Problem [facility] Streptococ Streptococ Problem Active [facility] k[facility] - infection infection [place] leonie l Outpati ent Clinics Right Right Diagnosis Active [facility] elbow pain elbow pain Moriah kes - [facility] Deep Problem Resolve 2020-06-23 Ken leonie venous d 00:46:26 l thrombosis Deep Braxton n (disorder) venous thrombosis (disorder) Res[facility] Atrial Problem Active 2020-06-23 Memor ia fibrillati 00:46:26 l on Atrial Brandon (disorder) fibrillati on (disorder) Active Problem 06/23/2020 [facility] Parkinson' Problem Active 2020-06-23 M emoria s disease 00:46:26 l (disorder) Braxton n Parkinson' s disease (disorder) Active Problem 06/23/2020 [facility] Neuro CVA Diagnosis Active 2014-08-16 Mem oria 11:11:00 l CVA [place] Active [facility] Allergies, Adverse Reactions, Alerts Allergy Allergy Status Severity Reaction(s) Onset Inactive Treating Comm ents Source Name Type Date Date Clinician Keflex Adverse Active rash [facility] sulfa sulfa Active Memoria drugs drugs [place] Polyspor Polyspor Active Memori a in in l [place] Social History Social Habit Start Date Stop Date Quantity Comments Source Social History 2014-07-03 2014-07-03 Scotty bennett 07:23:32 07:23:32 Medications Ordered Filled Start Stop Current Ordering Indication Dosage Frequency Signature Comments Components Source Medication Medication Date Date Medication? Clinician (SIG) Name Name Carbidopa Yes 1 tab, PO, Me moria 25 MG / 6-17 TID, # 90 l Levodopa 18:56: tab, 6 Brandon 100 MG Oral 00 Refill(s), Tablet Pharmacy: [id number], 160.02, cm, 11/09/18 15:14:00 PESTICIDE USE MEDICAL COORDINATOR, Height, 68.182, kg, 11/09/18 15:14:00 PESTICIDE USE MEDICAL COORDINATOR, Weight Carbidopa Yes 1 tab, PO, Me moria 25 MG / 7-02 TID, # 90 l Levodopa 19:59: tab, 4 Brandon 100 MG Oral 45 Refill(s), Tablet Pharmacy: [facility] [id number] Tylenol # 3 Tylenol # 3 Yes Ryland one tab [facility] - 00:00: Memoria 00 l [facility] Clinics Esomeprazol 2017-09 Yes 40 mg = 1 M emoria e 40 MG 1-13 cap, PO, l Enteric 21:13: Daily, 0 Braxton n Coated 00 Refill(s) Capsule Carbidopa 2017-09 Yes 1 tab, PO, Me moria 25 MG / 1-13 TID, # 90 l Levodopa 21:10: tab, 4 [place] 100 MG Oral 58 Refill(s), Tablet Pharmacy: [facility] [id number] Warfarin 2013-09 No Notes: Memoria 0-31 Nurse to l 22:00: ensure Brandon 00 documentat ion of patient education per anticoagul ation policy. Avoid large intake of vitamin-K containing foods diet. (Same As: Coumadin) atorvastati 2013-09 Yes 20 mg = 1 M emoria n 20 mg 0-31 tab, PO, l oral tablet 17:34: Bedtime, # [place] 00 30 tab, 3 Refill(s) aspirin 325 2013-09 Yes 325 mg = 1 Memoria mg tablet 0-31 tab, PO, l 17:34: Daily, # [place] 00 100 tab, 3 Refill(s) warfarin 2013-09 Yes 7.5 mg, Memori a 7.5 mg oral 0-31 PO, Q5PM, l tablet 17:34: # 5 tab, 0 Franchesca nn 00 Refill(s) OLANZapine 2013-09 Yes 2.5 mg = 1 M emoria 2.5 mg oral 0-31 tab, PO, l tablet 17:34: Q6H, [place] 00 Agitation, 0 Refill(s) 2013-09 Yes 0.4 mg = 1 Mem oria Multivitami 0-31 tab, PO, l ns with 17:34: Daily, 0 Braxton n Folic Acid 00 Refill(s) 0.4 mg oral tablet Folic Acid 2013-09 Yes 1 mg = 1 Mem oria 1 MG Oral 0-31 tab, PO, l Tablet 17:34: Daily, 0 [place] 00 Refill(s) Docusate 2013-09 Yes 100 mg = 1 Mem oria Sodium 100 0-31 cap, PO, l MG Oral 17:34: Q12H, 0 Brandon Capsule 00 Refill(s) benzonatate 2013-09 Yes 100 mg = 1 Memoria 100 mg oral 0-31 cap, PO, l capsule 17:34: TID, [place] 00 Cough, 0 Refill(s) Acetaminoph 2013-09 Yes 99.5 F, 0 Memoria en 325 MG 0-31 Refill(s) l Oral Tablet 17:34: Braxton n 00 Warfarin 2013-09 No Notes: Memoria 0-30 Nurse to l 22:00: ensure [place] 00 documentat ion of patient education per anticoagul ation policy. Avoid large intake of vitamin-K containing foods diet. (Same As: Coumadin) cefpodoxime 2013-09 No 100 mg, Mem oria 0-30 Route: PO, l 16:17: Drug form: [place] 00 TAB, [id number], Dosing Weight 83, kg, Priority: NOW, Start date: 07/06/14 11:17:00, Duration: 7 day, Stop date: 07/12/14 23:17:00 benzonatate 2013-09 No Notes: Ken leonie 0-30 (Same As: l 07:28: Tessalon Brandon 00 Perles) "Do Not Crush" Mag-Ox 400 2013-09 No Notes: Memor ia 0-29 (Same as: l 20:55: Mag-Ox [place] 00 400) Magnesium oxide 491lf=219v g elemental magnesium Dose=____m g magnesium oxide (___mg elemental magnesium) Lactated 2013-09 No 1,000 mL, Ken leonie Ringers IV 0-29 Rate: 100 l 1000 mL 16:26: ml/hr, [place] 00 Infuse over: 10 hr, Route: IV, Dosing Weight 83 kg, Total Volume: 1,000, Start date: 07/05/14 11:26:00, Duration: 30 day, Stop date: 08/04/14 11:25:00 Lactated 2013-09 No 1,000 mL, Ken leonie Ringers IV 0-29 Rate: 100 l 1,000 mL 15:06: ml/hr, [place] 00 Infuse over: 10 hr, Route: IV, Dosing Weight 83 kg, Total Volume: 1,000, Priority: STAT, Start date: 07/05/14 10:06:00, Duration: 30 day, Stop date: 08/04/14 10:05:00 Magnesium 2013-09 No 2 gm, 50 [place] leonie Sulfate 0-29 mL, Route: l 15:05: IVPB, Drug form: INJ, ONCE, Dosing Weight 83, kg, Total dose = 2 gm, Start date: 07/05/14 10:05:00, Duration: 1 doses or times, Stop date: 07/05/14 10:05:00 normal 2013-09 No 1,000 mL, Memori a saline 0.9% 0-29 Rate: 125 l IV 1,000 mL 14:24: ml/hr, Herm Infuse over: 8 hr, Route: IV, Dosing Weight 83 kg, Total Volume: 1,000, Start date: 07/05/14 9:24:00, Duration: 1 day, Stop date: 07/06/14 9:23:00 Rocephin 2013-09 No Notes: Use Mem oria 0-29 with 100ml l 13:00: NS mini-bag PLUS and infuse over 30 min ZyPREXA 2013-09 No Notes: Memoria 0-29 (Same as: l 02:00: ZyPREXA) Geodon 2013-09 No 5 mg, Memoria 0-29 Route: IM, l 02:00: Q4H, [place] 00 Dosing Weight 83, kg, Start date: 07/04/14 21:00:00, Duration: 30 day, Stop date: 08/03/14 20:00:00 ZyPREXA 2013-09 No Notes: Memoria 0-28 (Same as: l 22:08: ZyPREXA) folic acid 2013-09 No Notes: Memor ia 1 mg oral 0-28 (Same as: l tablet 22:00: Folvite) Sodium 2013-09 No 250 mL, Memoria Chloride 0-28 Rate: 999 l 0.9% IV 250 19:45: ml/hr, Herm clara mL 00 Infuse over: 0.3 hr, Route: IV, Dosing Weight 83 kg, Total Volume: 250, Start date: 07/04/14 14:45:00, Duration: 1 doses or times, Stop date: 07/04/14 15:02:00 Sodium 2013-09 No 500 mL, Memoria Chloride 0-28 Rate: 999 l 0.9% IV 500 19:44: ml/hr, Herm clara mL 00 Infuse over: 0.5 hr, Route: IV, Dosing Weight 83 kg, Total Volume: 500, Start date: 07/04/14 14:44:00, Duration: 1 doses or times, Stop date: 07/04/14 15:13:00 Benadryl 2013-09 No Notes: Memoria 0-28 (Same as: l 17:20: Benadryl) Ativan 2013-09 No Notes: Memoria 0-28 (Same as: l 09:00: Ativan) heparin, 2013-09 No Notes: Memoria porcine 0-28 porcine l 05:00: heparin aspirin 325 2013-09 No Notes: (Do Memoria mg tablet 0-28 Not Crush) l 03:00: Do not crush or chew. atorvastati 2013-09 No Notes: Ken leonie n 0-28 (Same As: l 02:00: Lipitor) sennosides, 2013-09 No Notes: Ken leonie INTERMEDIATE 0-27 (Same as: l 22:00: Senokot) pantoprazol 2013-09 No Notes: For Memoria e 0-27 IV push l 21:30: reconstitu te with 10 ml 0.9% sodium chloride and push over 2 minutes. (Same as: Protonix) Sodium 2013-09 No 1,000 mL, Memori a Chloride 0-27 Rate: 75 l 0.154 21:25: ml/hr, [place] MEQ/ML 00 Infuse Injectable over: 13.3 Solution hr, Route: IV, Dosing Weight 83 kg, Total Volume: 1,000, Start date: 07/03/14 16:25:00, Duration: 12 hr, Stop date: 07/04/14 4:24:00 Thiamine 2013-09 No Notes: Memoria 0-27 (Same As: l 17:00: Vitamin [place] 00 B1) 2013-09 No 1 tab, Memoria Multivitami 0-27 Route: PO, l ns with 17:00: Drug Form: Herm clara Folic Acid 00 TAB, 0.8 mg oral Dosing tablet Weight 83, kg, Daily, Start date: 07/03/14 12:00:00, Duration: 30 day, Stop date: 08/02/14 9:00:00 Saline 2013-09 No Notes: Memoria Flush 0.9% 0-27 (Same as: l 14:00: BD [place] 00 Posiflush) pneumococca 2013-09 No Notes: Ken leonie l capsular 0-27 (Same as: l polysacchar 14:00: Pneumovax H ermann gerardo type 1 00 23) vaccine / Refrigerat pneumococca e l capsular polysacchar gerardo type 10A vaccine / pneumococca l capsular polysacchar gerardo type 11A vaccine / pneumococca l capsular polysacchar gerardo type 12F vaccine / pneumococca l capsular polysacchar Influenza 2013-09 No Notes: Memori a Virus 0-27 (Same as: l Vaccine, 14:00: Fluzone Braxton n Inactivated 00 Quadrivale A-Igo- nt) -2006 (H3N2)-like virus ([place] [facility] [place]175C) strain / Influenza Virus Vaccine, Inactivated A-Igo- 59-2007, IVR-148 (H1N1) strain / Influenza Virus Vaccine, Inactivated , B-[place]- -2005-lik Docusate 2013-09 No Notes: Memoria 0-27 (Same as: l 14:00: Colace) [place] 00 (Do Not Crush) Diltiazem 2013-09 No Notes: Memori a 0-27 (Same as: l 13:58: Cardizem) [place] 00 magnesium 2013-09 No 2 gm, 50 Ken leonie sulfate 0-27 mL, Route: l 11:00: IVPB, Drug form: INJ, Q2H, Start date: 07/03/14 6:00:00, Duration: 2 doses or times, Stop date: 07/03/14 8:00:00 calcium 2013-09 No 3,000 mg, Memor ia gluconate + 0-27 30 mL, l Sodium 11:00: Route: IV, Franchesca nn Chloride 00 ONCE, 0.9% IV 100 Start mL date: 07/03/14 6:00:00, Stop date: 07/03/14 6:00:00 Sodium 2013-09 No 500 mL, Memoria Chloride 0-27 500 ml/hr, l 0.154 08:50: Infuse Brandon MEQ/ML 00 Over: 1 Injectable hr, Route: Solution IV, 500, Drug form: INJ, ONCE, Priority: STAT, Dosing Weight 83 kg, Start date: 07/03/14 3:50:00, Duration: 1 doses or times, Stop date: 07/03/14 3:50:00 Omnipaque 2013-09 No 50 ml, Memori a 300 0-27 Route: l 05:20: INTRAARTER Brandon 00 IAL, Dosing Weight 79.545, kg, ONCE, Start date: 07/03/14 0:20:00, Stop date: 07/03/14 0:20:00 Saline 2013-09 No Notes: Memoria Flush 0.9% 0-27 (Same as: l 03:10: BD Posiflush) Acetaminoph 2013-09 No Notes: Do M emoria en 0-27 not exceed l 03:10: 4 gm/day. [place] 00 (Same as: Tylenol) Bisacodyl 2013-09 No Notes: Memori a 0-27 (Same As: l 03:10: Dulcolax, Bisco-Lax) Nicardipine 2013-09 No Notes: Ken leonie 0-27 Same as: l 03:10: Cardene Concentrat ion: (0.2 mg /1 ml ) Enalapril 2013-09 No Notes: Memori a 0-27 (Same as: l 03:10: Vasotec-IV ) Labetalol 2013-09 No 105mmHg Ken leonie 0-27 l 03:10: [place] 00 Sodium 2013-09 No 1,000 mL, Memori a Chloride 0-27 Rate: 75 l 0.154 03:10: ml/hr, MEQ/ML 00 Infuse Injectable over: 13.3 Solution hr, Route: IV, Dosing Weight 79.545 kg, Total Volume: 1,000, Start date: 07/02/14 22:10:00, Duration: 30 day, Stop date: 08/01/14 22:09:00 Alteplase 2013-09 No 64.4 mg, Ken leonie 0-27 Route: IV, l 02:58: ONCE, Dosing Weight 79.545, kg, For Stroke Infusion, Start date: 07/02/14 21:58:00, Stop date: 07/02/14 21:58:00 Zofran 2013-09 No Notes: Memoria 0-27 (Same as: l 02:57: Zofran) [place] 00 Zofran 2013-09 No 4 mg, Memoria 0-27 Route: l 02:54: IVP, Drug form: INJ, ONCE, Dosing Weight 79.545, kg, Priority: STAT, Start date: 07/02/14 21:54:00, Stop date: 07/02/14 21:54:00 iodixanol 2013-09 No Special Memor ia 0-27 Instructio l 02:53: ns: Dose = 2.2ml/kg, Max dose = 150ml -- "To be infused by Radiology Staff ONLY" aspirin 2013-09 No 0 Memoria 0-27 Refill(s) l 02:41: [place] 00 Saline 2013-09 No Notes: Memoria Flush 0.9% 0-27 (Same as: l 02:34: BD [place] 00 Posiflush) Xarelto Xarelto Yes Ryland not [facility] Carbidopa-L Carbidopa-L Yes Ryland not [facility] ev[facility] evodopa [facility] Omeprazole Omeprazole Yes Ryland not [facility] Vital Signs Vital Name Observation Time Observation Value Comments Source Heart Rate 2019-03-08 19:24:00 [facility] [place] Respitory Rate 2019-03-08 19:24:00 Memori al [place] Systolic (mm Hg) 2019-03-08 19:24:00 Ken rial [place] Diastolic (mm Hg) 2019-03-08 19:24:00 Mem orial [place] Height 2018-07-20 20:29:00 162.56 cm [facility] [place] BMI Calculated 2018-07-20 20:29:00 Memori al [place] Weight 2018-07-20 20:29:00 [facility] [place] Heart Rate 2018-07-20 20:29:00 [facility] [place] Respitory Rate 2018-07-20 20:29:00 Memori al [place] Systolic (mm Hg) 2018-07-20 20:29:00 Ken rial [place] Diastolic (mm Hg) 2018-07-20 20:29:00 Mem orial [place] Systolic (mm Hg) 2014-07-08 00:00:00 Ken rial [place] Respitory Rate 2014-07-08 00:00:00 Memori al [place] Diastolic (mm Hg) 2014-07-08 00:00:00 Mem orial [place] Respitory Rate 2014-07-07 23:00:00 Memori al [place] Diastolic (mm Hg) 2014-07-07 22:00:00 Mem orial [place] Respitory Rate 2014-07-07 22:00:00 Memori al [place] Systolic (mm Hg) 2014-07-07 22:00:00 Ken rial [place] Diastolic (mm Hg) 2014-07-07 20:00:00 Mem orial [place] Systolic (mm Hg) 2014-07-07 20:00:00 Ken rial [place] Heart Rate 2014-07-04 10:50:00 [facility] [place] Heart Rate 2014-07-04 10:47:00 [facility] [place] Heart Rate 2014-07-04 10:33:00 [facility] [place] Height 2014-07-03 07:11:00 162.56 cm [facility] [place] Weight 2014-07-03 07:11:00 [facility] [place] BMI Calculated 2014-07-03 07:11:00 Memori al [place] Height 2014-07-03 07:10:00 162.56 cm [facility] [place] Weight 2014-07-03 07:10:00 [facility] [place] BMI Calculated 2014-07-03 07:10:00 Tamiko tellez Brandon Temperature Oral (F) 2014-07-03 03:45:00 97.0 F [facility] [place] Temperature Oral (F) 2014-07-03 03:00:00 97.9 F [facility] [place] BMI Calculated 2014-07-03 02:34:00 Tamiko tellez [place] Weight 2014-07-03 02:34:00 [facility] [place] Height 2014-07-03 02:34:00 162.56 cm [facility] [place] Procedures Procedure Date / Time Performed [facility]forming [facility] [place] Encounters Start End Encounter Admission Attending Care Care Encounter Source Date/Time Date/Time Type Type Clinicians Facility Department ID 2020-06-20 2020-06-20 Outpatient [facility]N [facility] [id number] 13:45:00 23:59:59 Tad 09 Jordy 2020-06-20 2020-06-20 Outpatient JOAQUÍN VelasquezMTSCHDANIELA [email or web address]]SCHER [id number] 13:45:00 13:45:00 Tad 08 Jordy 2020-02-29 2020-02-29 [facility] [id number] 08:41:00 11:46:00 Encounter Ryland Box [id number] [place] [id number] [facility] [id number] [place] [id number] 2020-02-28 2020-02-28 Laboratory Only, [facility] [id number] 10:06:51 10:21:51 Only Test Isauro [id number] [place] 4.2.7.2.686 [place] [id number] 2020-02-28 2020-02-28 Telephone ROSEANN Pimentel [id number] 00:00:00 00:00:00 Alannah ANAND [id number] [id number] 2020-02-24 2020-02-24 Neurology Tech 1, [facility] [id number] 15:00:04 15:15:04 Visit Isauro [id number] [place] [id number] [place] [id number] 2020-02-22 2020-02-22 Outpatient JOSE VelasquezSCHER JOSESCHER [id number] 13:45:00 23:59:59 Tad 07 Jordy 2019 2019 Outpatient JOSE VelasquezSCHER JOSESCHER [id number] 14:00:00 14:00:00 Tad 06 Jordy 2019-09-13 2019-09-13 Outpatient KALEIGH VelasquezSCHER [id number] 14:00:00 14:00:00 Tad 05 Jordy 2019-05-16 2019-05-16 Neurology Tech 1, Adc Lab [facility] [id number] 12:51:29 13:06:29 Visit Isauro [id number] [place] 4.2.7.2.686 [place] [id number] 2019-03-08 2019-03-08 Outpatient KALEIGH VelasquezSCHER [id number] 14:00:00 23:59:59 Tad 04 Jordy 2019-01-17 2019-01-17 [facility] [id number] [address] 11:00:00 11:00:00 [facility] Clinics 2018-12-31 2018-12-31 [facility] [id number] 09:30:00 09:30:00 [facility] ent Clinics 2018-12-23 2018-12-23 [facility] [id number] 14:30:00 14:30:00 [facility] ent Clinics 2018-12-20 2018-12-20 [facility] [id number] 10:18:00 10:18:00 [facility] Clinics 2018-12-20 2018-12-20 [facility] [id number] 10:17:00 10:17:00 [facility] ent Clinics 2018-12-20 2018-12-20 [facility] [id number] 09:30:00 09:30:00 [facility] Clinics 2018-12-13 2018-12-13 [facility] [id number] 09:00:00 09:00:00 [facility] Clin[facility] 2018-12-01 2018-12-01 [facility] [id number] 10:00:00 10:00:00 [facility] Clin[facility] 2018-11-08 2018-11-08 [facility] [id number] 14:30:00 14:30:00 [facility] Clinics 2018-11-05 2018-11-05 [facility] [id number] 10:15:00 10:15:00 [facility] ent Clinics 2018-07-20 2018-07-20 Outpatient KALEIGH Velasquez [email or web address]LEIGH [id number] 14:30:00 23:59:59 Tad 02 Jordy 2014-07-02 2014-07-07 Outpatient GLORIA Rivero SOUMYA [id number] 21:22:00 19:50:00 Chel-[place] 67 Results Test Description Test Time Test Comments Results Result Sourc e Comments URINE AND STOOL 2014-07-07 Negative [facility] 20:42:59 (07/07/14 3:42 [place] ) ELECTROLYTES 2014-07-07 14.5 [facility] 06:00:00 [place] ELECTROLYTES 2014-07-07 4.5 [facility] 06:00:00 [place] ELECTROLYTES 2014-07-07 142 [facility] 06:00:00 [place] ELECTROLYTES 2014-07-07 8.6 [facility] 06:00:00 [place] ELECTROLYTES 2014-07-07 22 [facility] 06:00:00 [place] ELECTROLYTES 2014-07-07 110 [facility] 06:00:00 [place] ELECTROLYTES 2014-07-07 58 [facility] 06:00:00 [place] ELECTROLYTES 2014-07-07 1.0 [facility] 06:00:00 [place] ELECTROLYTES 2014-07-07 23 [facility] 06:00:00 [place] ELECTROLYTES 2014-07-07 97 [facility] 06:00:00 [place] HEMATOLOGY 2014-07-07 06:00:00 Test Item Value Reference Range Interpretation Comme nts PT (test code = PT) 12.7 s 12.0-14.7 [facility] BinyrldJIGKVJGTQM3480-97-91 06:00:000.95[facility] 2014-07-07 06:00:0013.8[facility] QcrxnpbJVDKNZMOIH0387-19-10 06:00:003.59[facility] FfvfvndPPYZEIHXVL4470-82-13 06:00:0012.1[facility] BupjbzpPKJYTFWUHF3578-42-49 06:00:0011.5[facility] VgicvthUMHPBFEBVX2148-93-21 06:00:0036.0[facility] [place] CDTACNIZGU1248-22-00 06:00:03848.3[facility] DfpooalFLQNQDVISL7761-16-01 06:00:00 Test Item Value Reference Range Interpretation Comments MCH (test code = MCH) 32.0 pg 27.0-31.0 [facility] KhuhkacZQGHBQKGFN5392-92-26 06:00:0031.9[facility]ann[facility]MATOLOGY 2014-07-07 06:00:0011.4[facility] QfdpvqxVQHGFSANVO5673-84-55 06:00:92901Jnocgweh TzpbtttYPXTKNSQQS0441-11-22 06:00:0014.9[facility] TcfpuemCTROVIASLH3681-29-99 06:00:003.5[facility] AahbkenSOAKUTJVWE3539-79-83 06:00:000.4[facility] [place] YULCSRIEMM2702-03-66 06:00:003.9[facility] ZgrxrmcKSNOGTOXXI1061-49-24 06:00:001.8 [facility] CuylxqfJWEPSHRMWK1216-12-99 06:00:005.9[facility]ann[facility]MATOLOGY 2014-07-07 06:00:000.4[facility] RgwbvliHKWVUVKPIM8860-17-91 06:00:001+ *ABN*(07/07/14 1:00 AM)[facility] DtqfsdbSHHCCYXSGW5358-63-35 06:00:0032.6[facility] AdtdrrgXKTRDMZBXH3256-45-94 06:00:0048.6[facility] UuwljvtYMZGUOCZQT9803-75-38 00:14:38 Test Item Value Reference Range Interpretation Comments PT (test code = PT) 13.9 s 12.0-14.7 [facility] JohewkkVNWANYGDQQ6508-82-65 00:14:381.07[facility]ann[facility]MATOLOGY 2014-07-07 00:14:38 Test Item Value Reference Range Interpretation Comments PTT (test code = PTT) 35.0 s 22.9-35.8 [facility] HermannANEMIA [id number] 07:30:0014.3[facility] HermannANEMIA STUDY 2014-07-06 07:30:64039Vqyohkzt HermannANEMIA ROJDI2861-72-50 07:30:06801Hgvczuum HermannANEMIA TDQAT5672-77-13 07:30:0018[facility] HermannANEMIA NILZO8935-30-73 07:30:0052[facility] HermannANEMIA HOQCZ3041-18-03 07:30:80609Rkezmebt Brandon ANEMIA UFYIA7354-76-27 07:30:11685Qpgyomaf GzxcmdaXUVBTKOUYT5309-31-07 07:30:00 15.2[facility] BhvedjyELKOJMZNYB6532-27-08 07:30:000.3[facility] HermannHEMATOLOGY 2014-07-06 07:30:001.6[facility] UisxbmlYZUQMMTDSG5536-82-14 07:30:000.4[facility] VffjrrjMBOPJCCHQF6724-00-40 07:30:003.2[facility] SlnipfeNDAWYHPBZA2082-20-71 07:30:003.4[facility] CulvtboZSPVMKKJKL4438-31-09 07:30:005.3[facility] [place] KPBBNOJGXX9359-01-57 07:30:0049.6[facility] OsbrkyaPELXJJSLQF2098-92-50 07:30:00 Normal (07/06/14 2:30 AM)[facility] DhmroegZOVFUIVLLR6827-06-93 07:30:0031.6 [facility] UjxlxnuSGIKVBTTCV0578-06-69 07:30:00Normal (07/06/14 2:30 AM)[facility] KazvmcmSYVSULYXWT1962-19-54 07:30:0010.6[facility] CsxfaubVWBKPJMNCP6514-34-11 07:30:0097.8[facility] NuatcnvWGGDBWACIZ1789-26-23 07:30:0037.0[facility] [place] JBIDPQBAZX9606-04-61 07:30:0012.1[facility] OkkeeunFWGUNVRYXO6469-84-70 07:30:00 3.78[facility] XweprgiWPKSDGIHZO8524-20-29 07:30:0032.8[facility]annHEMATOLOGY 2014-07-06 07:30:00 Test Item Value Reference Range Interpretation Comments MCH (test code = MCH) 32.1 pg 27.0-31.0 [facility] IafqeluIEMXIWGELI8556-39-46 07:30:0013.9[facility]annHEMATOLOGY 2014-07-06 07:30:0012.2[facility] YyoeseaEVUPUEVQLS8945-40-12 07:30:06526Dvgxsxlq HermannCARDIAC CXYTUJA2083-75-91 21:20:06<0.010[facility] HermannCARDIAC FPLVVZE2718-64-44 21:20:08729Kdqhdeuv HermannCARDIAC TZRHLLI2681-58-75 21:20:06 0.02[facility]annCARDIAC COVDMCZ6635-02-39 21:20:061.0[facility] HermannCARDIAC NVCLGXT8490-57-85 21:20:061.2[facility] AkqvidpKBDZZRBHWG9631-20-02 21:20:060.7 [facility] QlzncxkTXXLBRJLPT8901-06-88 21:20:062.4[facility]annHEMATOLOGY 2014-07-05 21:20:065.3[facility] TbmynymCSCVYHIYVX0772-43-93 21:20:062.1[facility] RlibwikTKRIAOBBAH7454-76-87 21:20:061.4[facility] VbuwwvpMIBJEZAYKV9843-65-47 21:20:060.2[facility] DzxyqjvLIAFGRGEUQ8005-37-79 21:20:060.1[facility] [place] BQBQCUOQSP4843-44-12 21:20:0658.2[facility] SadrhlbPPRYZSJEZM6330-73-44 21:20:06 15.5[facility] XxykjclLRYSJUNZSM6350-04-10 21:20:0623.2[facility]annHEMATOLOGY 2014-07-05 21:20:0633.0[facility] PqiswrkRPZTZSEEQG1800-68-96 21:20:0614.0[facility] UboiobtOOZVURVASD9688-27-98 21:20:069.1[facility] EmrcojlAGYBAFSEXH7207-43-00 21:20:063.13[facility] EtdmedpFHOZJIPXPZ0860-01-36 21:20:0610.1[facility] DWLTWUILCW2392-94-60 21:20:68930Joevwqai OdsruiaATHAVDQXQW6153-75-29 21:20:06 12.1[facility] DnijcasDVWHIENUFL8349-24-58 21:20:0630.7[facility]annHEMATOLOGY 2014-07-05 21:20:06 Test Item Value Reference Range Interpretation Comments MCH (test code = MCH) 32.3 pg 27.0-31.0 [facility] UmtszwdIAQIWYYHQJ7317-98-44 21:20:0698.0[facility]annHEMATOLOGY 2014-07-05 15:35:400.1[facility]annCHEM IPCXH2365-22-49 06:00:001.6[facility]annCHEM RJEGK1111-35-43 06:00:003.7[facility]annCHEM CEGIC4274-44-70 06:00:0076[facility]annCHEM JAHAM8001-36-29 06:00:0025[facility]annCHEM XLWSP5673-82-65 06:00:008.3[facility]annCHEM TWZPL2603-95-91 06:00:03253 [facility]annCHE[facility] NEZET0720-43-62 06:00:0015[facility]annCHEM PANEL 2014-07-05 06:00:000.8[facility]annCHEM LBBCQ0434-04-65 06:00:62330Cqfnedal HermannCHEM HAOEZ4912-88-50 06:00:004.5[facility]annCHEM XEHFW4464-84-79 06:00:0089[facility]annCHEM JBLGX6774-31-11 06:00:0012.5[facility]annDRUG LKCWLR8995-19-88 00:50:00Negative *NA*(07/04/14 7:50 PM)[facility] GWGWZY0324-17-80 00:50:00See Note 8(07/04/14 7:50 PM)[facility] SCREEN 2014-07-05 00:50:00Negative *NA*(07/04/14 7:50 PM)[facility] SCREEN 2014-07-05 00:50:00Positive *ABN*(07/04/14 7:50 PM)[facility] SCREEN 2014-07-05 00:50:00Negative *NA*(07/04/14 7:50 PM)[facility] SCREEN 2014-07-05 00:50:00Negative *NA*(07/04/14 7:50 PM)[facility] SCREEN 2014-07-05 00:50:00Negative *NA*(07/04/14 7:50 PM)[facility] SCREEN 2014-07-05 00:50:00Negative *NA*(07/04/14 7:50 PM)[facility] YTCKF3672-26-86 00:50:001[facility] TWNYR6633-70-80 00:50:001 [facility] QNLCY0367-77-53 00:50:009[facility] FIVJW2757-86-15 00:50:005.0[facility] CSAYP5807-19-93 00:50:00 1.010[facility] UDIQV3450-41-86 00:50:00Moderate *ABN*(07/04/14 7:50 PM)[facility] VXWYW5205-97-69 00:50:00Negative *NA*(07/04/14 7:50 PM)[facility] AUDEF5177-25-73 00:50:00Negative (07/04/14 7:50 PM)[facility] ZBFBI3908-49-32 00:50:00Negative (07/04/14 7:50 PM)[facility] HDWKQ4759-96-61 00:50:00Yellow *NA*(07/04/14 7:50 PM)[facility] SSEGW6020-54-59 00:50:00Clear (07/04/14 7:50 PM)[facility]annCHEM VRGKV1560-35-96 22:40:001.0[facility]annCHEM PANEL 2014-07-04 22:40:002.5[facility]annCHEM UKUAG9572-72-43 22:40:001.3[facility]annCHEM UCDAZ2321-78-65 22:40:000.3[facility]annCHEM KCUKV3747-31-56 22:40:005.7[facility]annCHEM XVWDV0089-03-55 22:40:0061[facility]annCHEM ERKWO1680-36-70 22:40:003.2[facility]annCHEM DVXIO5818-33-75 22:40:0021 [facility]annCHEM BUETH4678-05-81 22:40:0016[facility]annCHEM PANEL 2014-07-04 22:40:000.1[facility]annCHEM DAZCB2468-27-99 22:40:000.4[facility]annCHEM BEMUY1907-58-95 07:45:003.3[facility]annCHEM WXMEF4545-68-38 07:45:001.8[facility]annCHEM BJPSQ9086-51-27 07:45:0066[facility]annCHEM DDTZG6064-37-75 07:45:0011.5[facility]annCHEM MHZOR2091-96-42 07:45:008.3 [facility]annCHEM HDYKN2321-37-08 07:45:48680Pjmgkafn HermannCHEM PANEL 2014-07-04 07:45:004.5[facility]annCHEM KCEEQ9926-11-05 07:45:78029Teolhvle HermannCHEM ETTUF0244-90-98 07:45:0024[facility]annCHEM BCXQL8597-59-57 07:45:15572Opwdfnbl HermannCHEM TSXOW1659-93-38 07:45:0012[facility]annCHEM YQJCV0115-24-54 07:45:000.9[facility] GomwksiBIJHZQLUIT6540-40-06 07:45:001.14 [facility] NqawgayGNNAPDRLDT0509-15-21 07:45:00 Test Item Value Reference Range Interpretation Comments PTT (test code = PTT) 26.0 s 22.9-35.8 [facility] GbohxnsKNKWCDBLTJ2044-28-10 07:45:00 Test Item Value Reference Range Interpretation Comments PT (test code = PT) 14.7 s 12.0-14.7 [facility]annPARATHYROID XWHCOIB9372-06-26 07:45:001.06[facility] [place] PARATHYROID AZCVVEB2177-05-02 07:45:001.06[facility]annDRUG MVGAUD0267-66-49 15:50:00See Note 9*NA*(07/03/14 10:50 AM)[facility]annDR[facility] XGIBVM1982-72-41 15:50:00Negative *NA*(07/03/14 10:50 AM)[facility]annDR[facility] VPYVME3084-53-34 15:50:00Negative *NA*(07/03/14 10:50 AM)[facility]annDR[facility] AGADME3425-80-14 15:50:00Negative *NA*(07/03/14 10:50 AM)[facility]annDR[facility] POLKPZ2593-30-73 15:50:00Negative *NA*(07/03/14 10:50 AM)[facility]DR[facility] VNXTZC0018-46-35 15:50:00Negative *NA*(07/03/14 10:50 AM)[facility]annDR[facility] YDINPF8793-96-73 15:50:00Negative *NA*(07/03/14 10:50 AM)[facility]annDR[facility] KJEESO9863-88-30 15:50:00Negative *NA*(07/03/14 10:50 AM)[facility] IdccfsoIAGQZW5443-90-60 15:50:001.95[facility] DnqvvnfRTKFBO2561-59-39 15:50:008[facility] HermannLIPIDS 2014-07-03 15:50:0072[facility] NcxuqicYRWHGW6497-24-93 15:50:0042[facility] [place] IUQOMB2353-09-49 15:50:26341Fgzvopji DyblkfyQTTDED5320-39-43 15:50:0084[facility] HermannSPECIAL LTJCPEQCE9729-05-30 15:50:004.9[facility]annUR[facility] AND STOOL 2014-07-03 15:50:004[facility] AND QSXCG9817-03-51 15:50:00Negative (07/03/14 10:50 AM)[facility] NVTGU5836-98-22 15:50:00Negative (07/03/14 10:50 AM)[facility] MWDSK2799-91-24 15:50:002[facility] AND TWIGC4345-09-22 15:50:00Negative (07/03/14 10:50 AM)[facility] UPFZW4302-53-23 15:50:00Light Yellow *NA*(07/03/14 10:50 AM) [facility] EVNOG4885-70-44 15:50:005.0[facility] AND OUKZE7048-96-09 15:50:00Negative *NA*(07/03/14 10:50 AM)[facility] KQHAP8108-40-26 15:50:00Slight *ABN*(07/03/14 10:50 AM)[facility] AND JIEYZ3314-38-14 15:50:001.007[facility] HermannBACTERIAL - ALHNZKFY0133-02-17 08:11:53Negative 16(07/03/14 3:11 AM)[facility] HermannCARDIAC KADYGLF6970-91-87 08:11:00<0.02[facility]annCARDIAC WCAKNMR6454-53-27 08:11:0051[facility] HermannCHEM CWAVB5836-90-76 08:11:002.8[facility] HermannCHEM YZSCE6145-33-50 08:11:001.7[facility]annCHEM TUQOX6018-82-34 08:11:005.6[facility]annCHEM TQYRW9562-54-76 08:11:003.0[facility] HermannCHEM MLMRH9615-38-13 08:11:002.6 [facility]annCHEM AXLXO0078-94-53 08:11:001.2[facility]annCHEM PANEL 2014-07-03 08:11:0026[facility] HermannCHEM DYZMB9991-12-91 08:11:0066[facility] HermannCHEM CLQDR5127-24-14 08:11:0018[facility] HermannCHEM USANT7407-54-57 08:11:000.1[facility]annCHEM NBSWZ9318-14-82 08:11:000.2[facility]annCHEM WZYGB4360-50-01 08:11:000.1[facility] NxnocgxTALZYVCAXO3639-41-98 08:11:00 Test Item Value Reference Range Interpretation Comments PTT (test code = PTT) 28.0 s 22.9-35.8 [facility]annPARATHYROID PSORUZT1272-77-25 08:11:001.01[facility] PARATHYROID AXTCCUP7717-34-50 08:11:001.04[facility] HermannCARDIAC ENZYMES 2014-07-03 06:10:000.031[facility] HermannBLOOD BANK ZJIHDOX8967-40-17 04:20:00 Negative (07/02/14 11:20 PM)[facility]annCARDIAC UPFAZQX9125-76-88 03:15:00 <0.02[facility]annCARDIAC ZHNYFBM8495-81-90 03:15:0059[facility] [place] CARDIAC QEOICWG9738-73-54 03:15:000.7[facility]annCARDIAC NNGEUFS7451-85-55 03:15:001.2[facility] RkaeenuMUULHYQPQB3592-00-26 03:15:000.0[facility] [place] JEPXIBPKXF9240-72-33 03:15:00Normal (07/02/14 10:15 PM)[facility] SIIWNMHKQT1148-15-35 03:15:00Normal (07/02/14 10:15 PM)[facility] MDUGB1065-71-50 02:34:001.2[facility] [place]
[2020-08-19] MEDS ORDERED: HYDROCODONE/APAP 5/325 MG TAB ONE (19:50)
--- NOTE | 2020-08-19 20:34 | RAD REPORT ---
EXAM DESCRIPTION: CT - Spine Lumbar Wo Con - 08/19/2020 8:13 pm CLINICAL HISTORY: LOWER BACK PAIN COMPARISON: None. TECHNIQUE: Thin section axial imaging of the lumbar spine was performed spanning T10-S3. Sagittal a nd coronal reconstruction images were generated and reviewed. All CT scans are performed using dose optimization technique as appropriate and may include automated exposure control or mA/KV adjustment according to patient size. FINDINGS: Lumbar bodies are normal in height. Lumbosacral transition body is present labeled L5 for the purposes of this study. Approximately 3 mm of anterior subluxation of L4 on L5 noted secondary to severe facet joint degenerative change. This causes a prominent pseudo bulging of disc material acro ss the central canal and into each exit foramen. Right foraminal disc bulge at L3-4 noted. No central canal disc herniation identified. No central spinal stenosis or significant degree of foraminal encr oachment seen. Elsewhere in the lumbar spine facet joint degenerative changes are present to a more m ild degree. L4-5 disc space is narrowed. No pars defects. No paraspinal soft tissue mass. SI joint degenerative changes mild. No sacral ala fracture. IMPRESSION: No compression fracture or acute lumbar vertebral body finding. Advanced facet joint degenerative change L4-5 causing mild anterior subluxation and bulging of disc m aterial. No central canal or significant foramen stenosis confirmed. Degenerative change elsewhere in the cervical spine is mild for age. No suspicion for disc herniation or significant central canal finding.
--- NOTE | 2020-08-19 20:44 | RAD REPORT ---
EXAM DESCRIPTION: CT - Thoracic Spine W/o Cont - 08/19/2020 8:14 pm CLINICAL HISTORY: Fall, back pain COMPARISON: CT lumbar spine same date TECHNIQUE: Axial 3 mm thick images of the thoracic spine were obtained with sagittal and coronal rec onstruction images generated and reviewed. All CT scans are performed using dose optimization technique as appropriate and may include automated exposure control or mA/KV adjustment according to patient size. FINDINGS: Small bilateral cervical ribs at C7. Mild wedge compression of the T8 body is present. The re are Schmorl's nodes in both of the T8 endplates as well is in the inferior T7 and superior T9 endp lates. No acute fracture line seen in T8. There is no paraspinal mass. Thoracic bodies otherwise normal in height. No lytic, sclerotic or expansile bony destructive process identifiable. Degenerative disc disease present at T7-8 and T8-9. There significant degenerative dis c and endplate change at T9-10. Prominent disc bulge or herniation is seen in the midline and right-s ided central canal T11-12. No central spinal stenosis or significant foraminal stenosis. Mild right f oraminal disc bulge at T10-11 without foramen stenosis. No paraspinal mass or hematoma. Central canal detail is inherently limited on CT imaging. IMPRESSION: Slight wedge compression deformity of the T8 body is noted with findings favoring this t o be chronic rather than acute. Thoracic vertebrae are otherwise normal in height with endplate degen erative spurring change. Concerns for acute T8 compression or occult acute bone process can be addressed with MR imaging. Prominent disc bulge or herniation midline and right side central canal T11-12. No spinal stenosis or significant foraminal encroachment.
--- NOTE | 2020-08-19 21:30 | ER ---
Nurse's Notes [facility] Name: Ning Coffey Age: 74 yrs Sex: Female : 1945 Arrival Date: 08/19/2020 Time: 17:31 Bed 19 Private MD: Diagnosis: Contusion of back wall of thorax;Contusion of lower back and pelvis Presentation: 08/19 17:36 Chief complaint: Patient states: I fell Thursday night, I don't know if I just lost my ca1 balance. I landed on my back. my back has been hurting since it happened, but a few minutes ago, I had an excruciating back pain. Denies LOC. Denies hitting head. Coronavirus screen: Client denies travel out of the [place] in the last 14 days. At this time, the client does not indicate any symptoms associated with coronavirus-19. Ebola Screen: Patient negative for fever greater than or equal to 101.5 degrees Fahrenheit, and additional compatible Ebola Virus Disease symptoms Patient denies exposure to infectious person. Patient denies travel to an Ebola-affected area in the 21 days before illness onset. No symptoms or risks identified at this time. Initial Sepsis Screen: Does the patient meet any 2 criteria? No. Patient's initial sepsis screen is negative. Does the patient have a suspected source of infection? No. Patient's initial sepsis screen is negative. Risk Assessment: Do you want to hurt yourself or someone else? Patient reports no desire to harm self or others. Onset of symptoms was August 17, 2020. 17:36 Method Of Arrival: Ambulatory ca1 17:36 Acuity: DANIELLE 3 ca1 22:11 Care prior to arrival: None. Mechanism of Injury: Fall from standing position. Trauma ll2 event details: Injury occurred in the [facility]. Historical: - Allergies: 22:13 Levaquin; ll2 22:13 Sulfa (Sulfonamide Antibiotics); ll2 22:13 Polysporin; ll2 - PMHx: 22:13 CVA; Parkinsons; ll2 - PSHx: 22:13 Hysterectomy; ll2 - Immunization history:: Adult Immunizations up to date, Flu vaccine is not up to date. - Social history:: Smoking status: Patient denies any tobacco usage or history of. - Immunization history: Last tetanus immunization: unknown. Screenin:03 Abuse screen: Denies threats or abuse. Nutritional screening: No deficits noted. ll2 Tuberculosis screening: No symptoms or risk factors identified. Fall Risk None identified. Primary Survey: 20:04 NO uncontrolled hemorrhage observed. Breathing/Chest: Respiratory pattern: regular, ll2 Respiratory effort: spontaneous. Circulation: Pulses: palpable right radial artery, right posterior tibial artery, left radial artery and left posterior tibial artery. Disability Alert. Reassessment Circulation. Reassessment Breathing/Chest Respiratory pattern Regular Disability Alert. 22:12 Exposure/Environment: There is no evidence of uncontrolled external bleeding. ll2 Assessment: 19:30 General: Appears in no apparent distress. Behavior is calm, cooperative, appropriate ll2 for age. Pain: Complains of pain in back Pain currently is 8 out of 10 on a pain scale. Neuro: Level of Consciousness is awake, alert, obeys commands, Oriented to person, place, time, situation. Cardiovascular: Patient's skin is warm and dry. Respiratory: Airway is patent Respiratory effort is even, unlabored, Respiratory pattern is regular, symmetrical. GI: No signs and/or symptoms were reported involving the gastrointestinal system. : No signs and/or symptoms were reported regarding the genitourinary system. EENT: No signs and/or symptoms were reported regarding the EENT system. Derm: Skin is intact, is healthy with good turgor, Skin is dry, Skin is pink, warm \T\ dry. Musculoskeletal: Circulation, motion, and sensation intact. Range of motion: intact in all extremities. 20:30 Reassessment: Patient and/or family updated on plan of care and expected duration. Pain ll2 level reassessed. Patient is alert, oriented x 3, equal unlabored respirations, skin warm/dry/pink. 21:32 Reassessment: Patient and/or family updated on plan of care and expected duration. Pain ll2 level reassessed. Patient is alert, oriented x 3, equal unlabored respirations, skin warm/dry/pink. 21:33 Reassessment: ERP to bedside discussing tests results. ll2 22:11 Reassessment: Patient and/or family updated on plan of care and expected duration. Pain ll2 level reassessed. Patient is alert, oriented x 3, equal unlabored respirations, skin warm/dry/pink. Vital Signs: 17:36 BP 153 / 100; Pulse 75; Resp 16 S; Temp 97.9(TE); Pulse Ox 99% on R/A; Weight 72.57 kg ca1 (R); Height 5 ft. 4 in. (162.56 cm) (R); Pain 10/10; 19:30 BP 124 / 83; Pulse 79; Resp 18; Temp 98; Pulse Ox 100% on R/A; ll2 20:30 BP 123 / 101; Pulse 88; Resp 16; Pulse Ox 99% on R/A; ll2 21:34 BP 128 / 70; Pulse 71; Resp 18; Pulse Ox 100% on R/A; ll2 17:36 Body Mass Index 27.46 (72.57 kg, 162.56 cm) ca1 [place] Coma Score: 20:04 Eye Response: spontaneous(4). Verbal Response: oriented(5). Motor Response: obeys ll2 commands(6). Total: 15. Trauma Score (Adult): 20:04 Eye Response: spontaneous(1); Verbal Response: oriented(1); Motor Response: obeys ll2 commands(2); Systolic BP: > 89 mm Hg(4); Respiratory Rate: 10 to 29 per min(4); Tim Score: 15; Trauma Score: 12 ED Course: 17:31 Patient arrived in ED. bp1 17:40 Triage completed. ca1 17:40 Arm band placed on right wrist. ca1 19:22 Sasha Jimenez, CHIDI is Primary Nurse. ll2 19:25 Orestes Brown NP is PHCP. pm1 19:25 Holden Garibay MD is Attending Physician. pm1 19:30 Patient has correct armband on for positive identification. Bed in low position. Call ll2 light in reach. Side rails up X 1. 19:30 Pulse ox on. NIBP on. ll2 20:05 Patient maintains SpO2 saturation greater than 95% on room air. ll2 20:05 Thermoregulation: warm blanket given to patient. ll2 20:14 CT Lumbar Spine Wo Con In Process Unspecified. EDMS 20:14 CT Thoracic Spine Wo Cont In Process Unspecified. EDMS 22:11 No provider procedures requiring assistance completed. Patient did not have IV access ll2 during this emergency room visit. Administered Medications: 19:40 Drug: Mark 5 mg-325 mg 1 tabs Route: PO; ll2 20:40 Follow up: Response: No adverse reaction ll2 Intake: 20:04 PO: 8ml (Water); Total: 8ml. ll2 Outcome: 21:29 Discharge ordered by . pm1 22:12 Discharged to home ambulatory. ll2 22:12 Condition: stable 22:12 Discharge instructions given to patient, Instructed on discharge instructions, follow up and referral plans. medication usage, Demonstrated understanding of instructions, follow-up care, medications, Prescriptions given X 1. 22:12 Patient's length of stay was not longer than 2 hours. 22:14 Patient left the ED. ll2 Signatures: Dispatcher [employer] EDMS Orestes Brown, CYNDEE MAINTENANCE REPRESENTATIVE pm1 [place] RN RN ca1 Sasha Jimenez RN RN ll2 [facility] [employer]: (The following items were deleted from the chart) 17:41 17:36 Chief complaint: Patient states: I fell Thursday night, I don't know if I just lost ca1 my balance. I landed on my back. my back has been hurting since it happened, but a few minutes ago, I had an excruciating back pain. ca1 22:14 17:40 Allergies: Levaquin; ca1 ll2 22:14 17:40 Allergies: Sulfa (Sulfonamide Antibiotics); ca1 ll2 22:14 17:40 Allergies: Polysporin; ca1 ll2 22:14 17:40 PMHx: CVA; ca1 ll2 22:14 17:40 PMHx: Parkinsons; ca1 ll2 22:14 17:40 PSHx: Hysterectomy; ca1 ll2
--- NOTE | 2020-08-19 21:30 | EDPHYS ---
Physician Documentation [facility] Name: Ning Coffey Age: 74 yrs Sex: Female : 1945 Arrival Date: 08/19/2020 Time: 17:31 Bed 19 Private MD: ED Physician Holden Garibay HPI: 08/19 19:34 This 74 yrs old Female presents to ER via Ambulatory with complaints of Fall pm1 Injury, Back Pain. 19:34 Details of fall: The patient fell from an upright position, while standing. Onset: The pm1 symptoms/episode began/occurred 2 day(s) ago. Associated injuries: The patient sustained upper back injury, pain, injury to the low back, pain. Severity of symptoms: in the emergency department the symptoms are unchanged. Patient with a history of CVA and Parkinson's disease was standing in her house and fell backwards on to her tile floor landing on her lower and upper back. No headache. head injury, neck pain, or LOC. Patient came into today because when she was getting up she felt some increased pain to the area that she injured from the fall two days ago. Historical: - Allergies: 22:13 Levaquin; ll2 22:13 Sulfa (Sulfonamide Antibiotics); ll2 22:13 Polysporin; ll2 - PMHx: 22:13 CVA; Parkinsons; ll2 - PSHx: 22:13 Hysterectomy; ll2 - Immunization history:: Adult Immunizations up to date, Flu vaccine is not up to date. - Social history:: Smoking status: Patient denies any tobacco usage or history of. - Immunization history: Last tetanus immunization: unknown. ROS: 19:34 Constitutional: Negative for fever, chills, and weight loss, Cardiovascular: Negative pm1 for chest pain, palpitations, and edema, Respiratory: Negative for shortness of breath, cough, wheezing, and pleuritic chest pain, Abdomen/GI: Negative for abdominal pain, nausea, vomiting, diarrhea, and constipation. 19:34 Neck: Negative for injury, pain, and swelling, MS/Extremity: Negative for injury and deformity, Skin: Negative for injury, rash, and discoloration, Neuro: Negative for headache, weakness, numbness, tingling, and seizure. 19:34 Back: Positive for pain with movement, of the thoracic area and sacrum. Exam: 19:34 Constitutional: This is a well developed, well nourished patient who is awake, alert, pm1 and in no acute distress. Head/Face: Normocephalic, atraumatic. Neck: Trachea midline, no thyromegaly or masses palpated, and no cervical lymphadenopathy. Supple, full range of motion without nuchal rigidity, or vertebral point tenderness. No Meningismus. 19:34 Skin: Warm, dry with normal turgor. Normal color with no rashes, no lesions, and no evidence of cellulitis. MS/ Extremity: Pulses equal, no cyanosis. Neurovascular intact. Full, normal range of motion. 19:34 Cardiovascular: Exam negative for acute changes, Rate: normal, Rhythm: regular, Pulses: no pulse deficits are appreciated. 19:34 Respiratory: Exam negative for acute changes, respiratory distress, shortness of breath. 19:34 Back: vertebral tenderness, is appreciated at T7, T8 and sacrum. 19:34 Neuro: Orientation: is normal, Mentation: is normal, Motor: is normal, moves all fours. Vital Signs: 17:36 BP 153 / 100; Pulse 75; Resp 16 S; Temp 97.9(TE); Pulse Ox 99% on R/A; Weight 72.57 kg ca1 (R); Height 5 ft. 4 in. (162.56 cm) (R); Pain 10/10; 19:30 BP 124 / 83; Pulse 79; Resp 18; Temp 98; Pulse Ox 100% on R/A; ll2 20:30 BP 123 / 101; Pulse 88; Resp 16; Pulse Ox 99% on R/A; ll2 21:34 BP 128 / 70; Pulse 71; Resp 18; Pulse Ox 100% on R/A; ll2 17:36 Body Mass Index 27.46 (72.57 kg, 162.56 cm) ca1 Tim Coma Score: 20:04 Eye Response: spontaneous(4). Verbal Response: oriented(5). Motor Response: obeys ll2 commands(6). Total: 15. Trauma Score (Adult): 20:04 Eye Response: spontaneous(1); Verbal Response: oriented(1); Motor Response: obeys ll2 commands(2); Systolic BP: > 89 mm Hg(4); Respiratory Rate: 10 to 29 per min(4); Tim Score: 15; Trauma Score: 12 MDM: 19:31 Patient medically screened. pm1 21:23 Data reviewed: vital signs. Data interpreted: Pulse oximetry: on room air is 100 %. pm1 Interpretation: normal. Counseling: I had a detailed discussion with the patient and/or guardian regarding: the historical points, exam findings, and any diagnostic results supporting the discharge/admit diagnosis, radiology results, the need for outpatient follow up, to return to the emergency department if symptoms worsen or persist or if there are any questions or concerns that arise at home. 08/19 19:33 Order name: CT Lumbar Spine Wo Con; Complete Time: 20:45 pm1 08/19 19:33 Order name: CT Thoracic Spine Wo Cont; Complete Time: 20:45 pm1 Administered Medications: 19:40 Drug: [place] 5 mg-325 mg 1 tabs Route: PO; ll2 20:40 Follow up: Response: No adverse reaction ll2 Disposition: 08/20 02:50 Co-signature as Attending Physician, Holden Garibay MD. [email or web address] Disposition: 08/19/20 21:29 Discharged to Home. Impression: Contusion of back wall of thorax, Contusion of lower back and pelvis. - Condition is Stable. - Discharge Instructions: Back Pain, Adult, Contusion, Fall Prevention in the Home. - Prescriptions for Tylenol- Codeine #3 300-30 mg Oral Tablet - take 2 tablets by ORAL route every 6 hours As needed; 20 tablet. - Medication Reconciliation Form, Thank You Letter, Antibiotic Education, Prescription Opioid Use form. - Follow up: Emergency Department; When: As needed; Reason: Worsening of condition. Follow up: Private Physician; When: 2 - 3 days; Reason: Recheck today's complaints, Continuance of care, Re-evaluation by your physician. - Problem is new. - Symptoms have improved. Signatures: Dispatcher [employer] EDMS Orestes Brown, CYNDEE CHICK GRADER pm1 Ida Hills RN RN Sasha Davis RN RN ll2 Holden Garibay MD MD [email or web address] Corrections: (The following items were deleted from the chart) 08/19 22: 17:40 Allergies: Levaquin; ca1 ll2 22:14 17:40 Allergies: Sulfa (Sulfonamide Antibiotics); ca1 ll2 22:14 17:40 Allergies: Polysporin; ca1 ll2 22:14 17:40 PMHx: CVA; ca1 ll2 22:14 17:40 PMHx: Parkinsons; ca1 ll2 22:14 17:40 PSHx: Hysterectomy; ca1 ll2 22:14 21:29 08/19/2020 21:29 Discharged to Home. Impression: Contusion of back wall of ll2 thorax; Contusion of lower back and pelvis. Condition is Stable. Forms are Medication Reconciliation Form, Thank You Letter, Antibiotic Education, Prescription Opioid Use. Follow up: Emergency Department; When: As needed; Reason: Worsening of condition. Follow up: Private Physician; When: 2 - 3 days; Reason: Recheck today's complaints, Continuance of care, Re-evaluation by your physician. Problem is new. Symptoms have improved. pm1
[2020-08-23 04:35] VITALS: TEMP 98
[2020-08-23 04:39] VITALS: BP 128/70; O2SAT 100
== END 2020-08-19 22:14 | disposition home or self-care (01) ==
LOC: ER 17:29
DX: S20.229A Contusion of unspecified back wall of thorax, initial encounter (principal); S30.0XXA Contusion of lower back and pelvis, initial encounter; W18.30XA Fall on same level, unspecified, initial encounter; Y93.9 Activity, unspecified; Y92.009 Unspecified place in unspecified non-institutional (private) residence as the place of occurrence of the external cause; G20 Parkinson's disease; Z88.1 Allergy status to other antibiotic agents; Z88.2 Allergy status to sulfonamides; Z88.3 Allergy status to other anti-infective agents
CPT/HCPCS: 72128; 72131; 99284

== ENCOUNTER 2020-09-11 14:27 | Emergency (ER) | payer OTHER, MEDICARE ==
--- OUTSIDE RECORDS SUMMARY | 2020-09-11 14:37 | XMS REPORT | Continuity of Care Document ---
:1945 Author Organization [employer] Care Team Providers Name Role Phone Yeexoo Information happin! 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 Parkinson's Active Problem 06/23/2020 [place] disease Neuro (disorder) CVA Active [facility] Medications Medication Details Route Status Patient Ordering Order Source Instructions Provider Date Carbidopa 25 MG 1 tab, PO, TID, # Active 02/21/ [place] / Levodopa 100 90 tab, 6 2019 Neuro MG Oral Tablet Refill(s), Pharmacy: [facility] #[id number], 160.02, cm, 11/09/18 15:14:00 [employer], Height, 68.182, kg, 11/09/18 15:14:00 [employer], Weight Carbidopa 25 MG 1 tab, PO, TID, # Active 03/08/ [place] / Levodopa 100 90 tab, 4 2018 Neuro MG Oral Tablet Refill(s), Pharmacy: [facility] [id number] Esomeprazole 40 40 mg = 1 cap, Active ischer MG Enteric PO, Daily, 0 2017 Neuro Coated Capsule Refill(s) Carbidopa 25 MG 1 tab, PO, TID, # Active 07/20/ [place] / Levodopa 100 90 tab, 4 2017 Neuro MG Oral Tablet Refill(s), Pharmacy: [facility] [id number] Warfarin Notes: 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[place] as [...] 1 mg = 1 tab, PO, Active [facility] Oral Tablet Daily, 0 2013 Medical Refill(s) Center Docusate Sodium 100 mg = 1 cap, Active [place] 100 MG Oral PO, Q12H, 0 2013 Medical Capsule Refill(s) Center benzonatate 100 100 mg = 1 cap, Active [facility] mg oral capsule PO, TID, Cough, 0 2013 Medical Refill(s) Center Acetaminophen 99.5 F, 0 [facility] 2014 Medical Tablet Center Warfarin Notes: 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 Avoid large intake of vitamin-K containing foods diet. (Same As: Coumadin) cefpodoxime 100 mg, Route: Inactive [place] PO, Drug form: 2013 Medical TAB, [id number], Center Dosing Weight 83, kg, Priority: NOW, Start date: 07/06/14 11:17:00, Duration: 7 day, Stop date: 07/12/14 23:17:00 benzonatate Notes: (Same As: No Longer [facility] Simran Red) Active 2013 Medical "Do Not Crush" Center Mag-Ox 400 Notes: (Same as: Inactive [facility] Mag-Ox 400) 2013 [facility] Magnesium oxide Tiro [id number] elemental magnesium Dose=____mg magnesium oxide (___mg elemental magnesium) Lactated Ringers 1,000 mL, Rate: Inactive [place] IV 1000 mL 100 ml/hr, Infuse 2013 Med ical over: 10 hr, Center Route: IV, Dosing Weight 83 kg, Total Volume: 1,000, Start date: 07/05/14 11:26:00, Duration: 30 day, Stop date: 08/04/14 11:25:00 Lactated Ringers 1,000 mL, Rate: No Longer 07/05 [place] IV 1,000 mL 100 ml/hr, Infuse Active 2013 Me dical over: 10 hr, Center Route: IV, Dosing Weight 83 kg, Total Volume: 1,000, Priority: STAT, Start date: 07/05/14 10:06:00, Duration: 30 day, Stop date: 08/04/14 10:05:00 Magnesium 2 gm, 50 mL, Inactive [facility] Sulfate Route: IVPB, Drug 2013 Medica l form: INJ, ONCE, Center Dosing Weight 83, kg, Total dose = 2 gm, Start date: 07/05/14 10:05:00, Duration: 1 doses or times, Stop date: 07/05/14 10:05:00 normal saline 1,000 mL, Rate: Inactive [facility] 0.9% IV 1,000 mL 125 ml/hr, Infuse Formerly named [facility] Medical over: 8 hr, Center Route: IV, Dosing Weight 83 kg, Total Volume: 1,000, Start date: 07/05/14 9:24:00, Duration: 1 day, Stop date: 07/06/14 9:23:00 Rocephin Notes: Use with [place] Longer [place] 100ml NS mini-bag Active 2013 Medica l PLUS and infuse Center over 30 min ZyPREXA Notes: (Same as: Inactive [place] as ZyPREXA) [address] [place] [address] Geodon 5 mg, Route: IM, Inactive [place] as Q4H, Dosing 2013 Medical Weight 83, kg, Center Start date: 07/04/14 21:00:00, Duration: 30 day, Stop date: 08/03/14 20:00:00 ZyPREXA Notes: (Same as: [place] Longer [place] ZyPREXA) Active [address] [place] [address] folic acid 1 mg Notes: (Same as: No Longer 07/04 [place] oral tablet Folvite) Active [address] [place] [address] Sodium Chloride 250 mL, Rate: 999 Inactive [...] Notes: (Same as: [place]active [place] Benadryl) [address] [place] [address] Ativan Notes: (Same as: Inactive [place] as Ativan) [address] [place] [address] heparin, porcine Notes: porcine No Longer [place] heparin Active [address] [place] [address] aspirin 325 mg Notes: (Do Not No Longer [place] tablet Crush) Do not Active Formerly named [facility] Medical crush or chew. Center atorvastatin Notes: (Same As: No Longer [place] Lipitor) Active 2013 [facility] sennosides, FDC Notes: (Same as: No Longer 07/03 [facility] Senokot) Active [address] [place] [address] pantoprazole Notes: For IV Inactive [place] push reconstitute 2014 Medica l with 10 ml 0.9% Center sodium chloride and push over 2 minutes. (Same as: Protonix) Sodium Chloride 1,000 mL, Rate: No Longer [place] 0.154 MEQ/ML 75 ml/hr, Infuse Active Formerly named [facility] Me dical Injectable over: 13.3 hr, Center Solution Route: IV, Dosing Weight 83 kg, Total Volume: 1,000, Start date: 07/03/14 16:25:00, Duration: 12 hr, Stop date: 07/04/14 4:24:00 Thiamine Notes: (Same As: No Longer [facility] exyazan Vitamin B1) Active 2013 [facility] 1 tab, Route: PO, No Longer [facility] Multivitamins Drug Form: TAB, Active 2013 Ia dical with Folic Acid Dosing Weight 83, Tiro 0.8 mg oral kg, Daily, Start tablet date: 07/03/14 12:00:00, Duration: 30 day, Stop date: 08/02/14 9:00:00 Saline Flush Notes: (Same as: No Longer [facility] 0.9% BD Posiflush) Active 2013 [facility] pneumococcal Notes: (Same as: Inactive [facility] capsular Pneumovax 23) 2013 [facility] polysaccharide Refrigerate Cente r type 1 vaccine / pneumococcal capsular polysaccharide type 10A vaccine / pneumococcal capsular polysaccharide type 11A vaccine / pneumococcal capsular polysaccharide type 12F vaccine / pneumococcal capsular polysacchar Influenza Virus Notes: (Same as: Inactive [facility] Vaccine, Fluzone [address] [place] [address] Inactivated Quadrivalent) Tiro [id number] 07 (H3N2)-like virus ([id number] 007 [facility] X-175C) strain / Influenza Virus Vaccine, Inactivated I-[id number] 07, IVR-148 (H1N1) strain / Influenza Virus Vaccine, Inactivated, O-Fdkwadz-5 -lik Docusate Notes: (Same as: No Longer T[place]ha velizas Colace) (Do Not Active 2013 [facility]) Tiro Diltiazem Notes: (Same as: Inactive [facility] [place] Cardizem) 2013 [facility] magnesium 2 gm, 50 mL, Inactive [facility] sulfate Route: IVPB, Drug 2013 Medica l form: INJ, Q2H, Center Start date: 07/03/14 6:00:00, Duration: 2 doses or times, Stop date: 07/03/14 8:00:00 calcium 3,000 mg, 30 mL, Inactive [place] as gluconate + Route: IV, ONCE, 2013 Med ical Sodium Chloride Start date: [facility] er 0.9% IV 100 mL 07/03/14 6:00:00, Stop date: 07/03/14 6:00:00 Sodium Chloride 500 mL, 500 Inactive [place] 0.154 MEQ/ML ml/hr, Infuse 2014 Medic al Injectable Over: 1 hr, Tiro Solution Route: IV, 500, Drug form: INJ, ONCE, Priority: STAT, Dosing Weight 83 kg, Start date: 07/03/14 3:50:00, Duration: 1 doses or times, Stop date: 07/03/14 3:50:00 Omnipaque 300 50 ml, Route: Inactive [place] INTRAARTERIAL, 2013 Medical Dosing Weight Center 79.545, kg, ONCE, Start date: 07/03/14 0:20:00, Stop date: 07/03/14 0:20:00 Saline Flush Notes: (Same as: No Longer [place] 0.9% BD Posiflush) Active 2013 Medical Center Acetaminophen Notes: Do not No Longer [facility] exceed 4 gm/day. Active 2013 Medical (Same as: Center Tylenol) Bisacodyl Notes: (Same As: No Longer [place] Dulcolax, Active 2013 Medical Bisco-Lax) Center Nicardipine Notes: Same as: No Longer [facility] Cardene Active 2013 Medical Concentration: Center (0.2 mg /1 ml ) Enalapril Notes: (Same as: No Longer [place] Vasotec-IV) Active 2013 Medical Center Labetalol 105mmHg No Longer [facility] Active 2014 [facility] Center Sodium Chloride 1,000 mL, Rate: No Longer [place] 0.154 MEQ/ML 75 ml/hr, Infuse Active 2013 Me dical Injectable over: 13.3 hr, Tiro Solution Route: IV, Dosing Weight 79.545 kg, Total Volume: 1,000, Start date: 07/02/14 22:10:00, Duration: 30 day, Stop date: 08/01/14 22:09:00 Alteplase 64.4 mg, Route: Inactive [place] IV, ONCE, Dosing 2013 Medical Weight 79.545, Center kg, For Stroke Infusion, Start date: 07/02/14 21:58:00, Stop date: 07/02/14 21:58:00 Zofran Notes: (Same as: [place] Longer [place] Zofran) Active 2013 [facility] Zofran 4 mg, Route: IVP, Inactive [place] Drug form: INJ, 2013 Medical ONCE, Dosing Center Weight 79.545, kg, Priority: STAT, Start date: 07/02/14 21:54:00, Stop date: 07/02/14 21:54:00 iodixanol Special Inactive [facility] Instructions: Formerly named [facility] Medical Dose = 2.2ml/kg, Tiro Max dose = 150ml -- "To be infused by Radiology Staff ONLY" aspirin 0 Refill(s) No Longer [facility] Active [address] [place] [address] Saline Flush Notes: (Same as: No Longer [facility] 0.9% BD Posiflush) Active 2013 [facility] Allergies, Adverse Reactions, Alerts Substance Category Reaction Severity Reaction Status Date Comments S ource type Reported sulfa drugs Assertion Drug Active Mi jackie allergy Neuro Polysporin Assertion Drug Active Mis su allergy Neuro Immunizations Immunization Date Given Site Status Last Comments Source Updated pneumococcal 07/04/2014 Left completed [place] Mische r 23-valent vaccine deltoid Ne uro,[facility] influenza virus 07/04/2014 Right completed [place] Mis su vaccine, deltoid Neuro, inactivated [facility] Results Order Name Results Value Reference Date Interpretation Comments Brenda rce Range URINE AND Occult Bld Negative Negative 07/07 [facility] STOOL Stl (07/07/14 3:42 PM) Medic nc Center ELECTROLYTE AGAP 14.5 10.0 - 07/07 [facility] S 20.0 [facility] ELECTROLYTE Potassium Lvl 4.5 3.5 - 5.1 07/07 [place] [facility] ELECTROLYTE Sodium Lvl 142 135 - 145 07/07 [place] [facility] ELECTROLYTE Calcium Lvl 8.6 8.5 - 10.5 07/07 [place] [facility] ELECTROLYTE CO2 22 24 - 32 07/07 [facility] ELECTROLYTE Chloride Lvl 110 95 - 109 07/07 [place] as [facility] ELECTROLYTE eGFR 58 07/07 <sup>1</sup>R [place] as [...] ELECTROLYTE Creatinine 1.0 0.5 - 1.4 07/07 [facility] s S Lv [facility] ELECTROLYTE BUN 23 7 - 22 07/07 [facility] S [facility] ELECTROLYTE Glucose Lvl 97 70 - 99 07/07 <sup>4</sup>I [facility] nterpretive Medical Data: Adult Center reference range values reflect the clinical guidelines
of the [place] [employer]. HEMATOLOGY PT 12.7 12.0 - 07/07 [place] 14.7 [facility] HEMATOLOGY INR 0.95 0.85 - 07/07 <sup>10</sup> [facility] s 1.17 Interpretive Medical Data: Center RECOMMENDED RANGES FOR PROTIME INR:
2.0-3.0 for most medical and surgical thromboemboli c states.
2.5-3.5 for artificial heart valves and recurrent embolism.<br/ >
INR SHOULD BE USED ONLY FOR PATIENTS ON STABLE ANTICOAGULANT THERAPY. HEMATOLOGY RDW 13.8 11.5 - 07/07 [place] 14.5 [facility] HEMATOLOGY RBC 3.59 4.20 - 07/07 [place] 5.40 /2013 [facility] HEMATOLOGY WBC 12.1 3.7 - 10.4 07/07 [facility] HEMATOLOGY Hgb 11.5 12.0 - 07/07 [place] 16.0 /2013 [facility] HEMATOLOGY Hct 36.0 36.0 - 07/07 [place] 48.0 /2013 [facility] HEMATOLOGY MCV 100.3 80.0 - 07/07 [facility] 98.0 /2013 [facility] HEMATOLOGY MCH 32.0 27.0 - 07/07 31.0 [facility] HEMATOLOGY MCHC 31.9 32.0 - 07/07 [place] 36.0 /2013 [facility] HEMATOLOGY MPV 11.4 7.4 - 10.4 07/07 [facility] HEMATOLOGY Platelet 175 133 - 450 07/07 [facility] HEMATOLOGY Monocytes 14.9 2.0 - 12.0 07/07 [facility] HEMATOLOGY Eosinophils 3.5 0.0 - 4.0 07/07 [facility] HEMATOLOGY Basophils 0.4 0.0 - 1.0 07/07 [facility] HEMATOLOGY Lymphocytes # 3.9 1.0 - 5.5 07/07 [place] [facility] HEMATOLOGY Monocytes # 1.8 0.0 - 0.8 07/07 [facility] HEMATOLOGY Segs-Bands # 5.9 1.5 - 8.1 07/07 [facility] HEMATOLOGY Eosinophils # 0.4 0.0 - 0.5 07/07 [place] [facility] HEMATOLOGY Macrocyte 1+ None Seen 07/07 [facility] *ABN* /2013 Medical (07/07/14 1:00 AM) [facility] HEMATOLOGY Lymphocytes 32.6 20.0 - 07/07 [place] 40.0 /2013 [facility] HEMATOLOGY Segs 48.6 45.0 - 07/07 [place] 75.0 /2013 [facility] HEMATOLOGY PT 13.9 12.0 - 07/07 [place] 14.7 [facility] HEMATOLOGY INR 1.07 0.85 - 07/07 <sup>11</sup> [place] 1.17 Interpretive Medical Data: Center [...] Seconds ANEMIA Folate Lvl 14.3 >=3.0 07/06 [facility] STUDY ng/mL [facility] ANEMIA Vitamin B12 908 254 - 1320 07/06 [facility] STUDY Lvl [facility] ANEMIA UIBC 245 110 - 370 07/06 [facility] ANEMIA % [place] Fe 18 12 - 57 07/06 [facility] ANEMIA Iron 52 30 - 160 07/06 [facility] ANEMIA TIBC 297 228 - 428 07/06 [facility] ANEMIA Transferrin 227 212 - 360 07/06 [facility] HEMATOLOGY Monocytes 15.2 2.0 - 12.0 07/06 [facility] HEMATOLOGY Eosinophils # 0.3 0.0 - 0.5 07/06 [facility] HEMATOLOGY Monocytes # 1.6 0.0 - 0.8 07/06 [facility] HEMATOLOGY Basophils 0.4 0.0 - 1.0 07/06 [facility] HEMATOLOGY Eosinophils 3.2 0.0 - 4.0 07/06 [facility] HEMATOLOGY Lymphocytes # 3.4 1.0 - 5.5 07/06 [facility] HEMATOLOGY Segs-Bands # 5.3 1.5 - 8.1 07/06 [facility] HEMATOLOGY Segs 49.6 45.0 - 07/06 [place] 75.0 [facility] HEMATOLOGY Plt Morph Normal 07/06 [facility] (07/06/14 2:30 AM) [facility] HEMATOLOGY Lymphocytes 31.6 20.0 - 07/06 [place] 40.0 Medical Tiro HEMATOLOGY RBC Morph Normal 07/06 [facility] (07/06/14 2:30 AM) [facility] HEMATOLOGY WBC 10.6 3.7 - 10.4 07/06 Medical [place] HEMATOLOGY MCV 97.8 80.0 - 07/06 [place] 98.0 Medical [place] HEMATOLOGY Hct 37.0 36.0 - 07/06 [place] 48.0 [facility] HEMATOLOGY Hgb 12.1 12.0 - 07/06 [place] 16.0 [facility] HEMATOLOGY RBC 3.78 4.20 - 07/06 [place] 5.40 Medical Center HEMATOLOGY MCHC 32.8 32.0 - 07/06 [place] 36.0 Medical Center HEMATOLOGY MCH 32.1 27.0 - 07/06 [place] 31.0 Medical Center HEMATOLOGY RDW 13.9 11. - 07/06 14. [facility] HEMATOLOGY MPV 12.2 7.4 - 10.4 07/06 [facility] HEMATOLOGY Platelet 167 133 - 450 07/06 [facility] CARDIAC Troponin-T <0.010 0.000 - 07/05 [place] ENZYMES 0.100 [facility] CARDIAC Total CK 123 12 - 191 07/05 ENZYMES [facility] CARDIAC Troponin-I 0.02 0.00 - 07/05 [place] ENZYMES 0.40 [facility] CARDIAC CK MB Index 1.0 0.0 - 2.5 07/05 [facility] CARDIAC CK MB 1.2 0.5 - 3.6 07/05 [facility] HEMATOLOGY Basophils 0.7 0.0 - 1.0 07/05 [facility] HEMATOLOGY Eosinophils 2.4 0.0 - 4.0 07/05 Medical [facility] HEMATOLOGY Segs-Bands # 5.3 1.5 - 8.1 07/05 Medical Center HEMATOLOGY Lymphocytes # 2.1 1.0 - 5.5 07/05 [facility] HEMATOLOGY Monocytes # 1.4 0.0 - 0.8 07/05 [facility] HEMATOLOGY Eosinophils # 0.2 0.0 - 0.5 07/05 [facility] HEMATOLOGY Basophils # 0.1 0.0 - 0.2 07/05 Medical Center HEMATOLOGY Segs 58.2 45.0 - 07/05 [place] 75.0 Medical Center HEMATOLOGY Monocytes 15.5 2.0 - 12.0 07/05 [facility] HEMATOLOGY Lymphocytes 23.2 20.0 - 07/05 40.0 Medical Center HEMATOLOGY MCHC 33.0 32.0 - 07/05 [place] 36.0 [facility] Center HEMATOLOGY RDW 14.0 11.5 - 07/05 [place] 14. Medical Center HEMATOLOGY WBC 9.1 3.7 - 10.4 07/05 Medical Center HEMATOLOGY RBC 3.13 4.20 - 07/05 5.40 /2013 [facility] HEMATOLOGY Hgb 10.1 12.0 - 07/05 16.0 [facility] HEMATOLOGY Platelet 142 133 - 450 07/05 [facility] HEMATOLOGY MPV 12.1 7.4 - 10.4 07/05 [facility] HEMATOLOGY Hct 30.7 36.0 - 07/05 48.0 [facility] HEMATOLOGY MCH 32.3 27.0 - 07/05 31.0 [facility] HEMATOLOGY MCV 98.0 80.0 - 07/05 98.0 [facility] HEMATOLOGY Basophils # 0.1 0.0 - 0.2 07/05 [facility] CHEM PANEL Magnesium Lvl 1.6 1.8 - 2.4 07/05 [facility] CHEM PANEL Phosphorus 3.7 2.5 - 4.5 07/05 [facility] CHEM PANEL eGFR 76 07/05 <sup>2</sup>R [facility] Comment: The Center eGFR is calculated [...] PANEL CO2 25 24 - 32 07/05 [facility] CHEM PANEL Calcium Lvl 8.3 8.5 - 10.5 07/05 [facility] CHEM PANEL Sodium Lvl 145 135 - 145 07/05 [facility] CHEM PANEL BUN 15 7 - 22 07/05 Medical Center CHEM PANEL Creatinine 0.8 0.5 - 1.4 07/05 [place] Lvl [facility] CHEM PANEL Chloride Lvl 112 95 - 109 07/05 [place] [facility] CHEM PANEL Potassium Lvl 4.5 3.5 - 5.1 07/05 [place] [facility] Center CHEM PANEL Glucose Lvl 89 70 - 99 07/05 <sup>5</sup>I nterpretive Medical Data: Adult Center reference range values reflect the clinical guidelines
of the [place] [employer]. CHEM PANEL AGAP 12.5 10.0 - 07/05 [facility] 20.0 [facility] Center DRUG SCREEN U Phencyc Scr Negative Negative 07/05 [place] *NA* /2013 [facility] (07/04/14 7:50 PM) Cente r DRUG SCREEN UDS Note See Note 8 07/05 <sup>8</sup>I [facility] (07/04/14 7:50 PM) nterpretive M edical Data: Drugs Center reported as positive have not been confirmed by a second
ct thod and should be used for medical [...] 200 ng/mL
Diogo zodiazepines 300 ng/mL
Alexis mariaf ernanda metabolites 300 ng/mL
Opi ates 300 ng/mL
[...] AND UA <=1.0 0.1 - 1.0 07/05 [facility] Urobilinogen mg/dL [facility] URINE AND UA RBC 1 0 - 2 07/05 [facility] URINE AND UA Mucus Few /LPF None Seen 07/05 [facility] STOOL /LPF [facility] URINE AND UA Hyal Cast 1 0 - 2 07/05 [facility] URINE AND UA WBC 9 0 - 5 07/05 [facility] URINE AND UA Glucose Negative Negative 07/05 [facility] mg/dL mg/dL [facility] URINE AND UA Ketones Negative Negative 07/05 [facility] mg/dL mg/dL [facility] URINE AND UA pH 5.0 5.0 - 8.0 07/05 [facility] URINE AND UA Protein Negative Negative 07/05 [facility] mg/dL mg/dL [facility] URINE AND UA Spec Grav 1.010 <=1.030 07/05 [facility] URINE AND UA Leuk Est Moderate Negative 07/05 [facility] STOOL *ABN* Medical (07/04/14 7:50 PM) Cente r URINE AND UA Sq Epi Few /LPF Few /LPF 07/05 [facility] URINE AND UA Bili Negative Negative 07/05 [facility] STOOL *NA* Medical (07/04/14 7:50 PM) Cente r URINE AND UA Blood Negative Negative 07/05 [facility] STOOL (07/04/14 7:50 PM) [facility] URINE AND UA Nitrite Negative Negative 07/05 [facility] STOOL (07/04/14 7:50 PM) [facility] URINE AND UA Color Yellow Yellow 07/05 [facility] STOOL *NA* Medical (07/04/14 7:50 PM) Cente r URINE AND UA Turbidity Clear Clear 07/05 [facility] STOOL (07/04/14 7:50 PM) [facility] CHEM PANEL Lactic Acid 1.0 0.5 - 2.2 07/04 l [facility] CHEM PANEL Globulin 2.5 2.0 - 4.0 07/04 [facility] CHEM PANEL A/G Ratio 1.3 0.7 - 1.6 07/04 [facility] CHEM PANEL Bili Indirect 0.3 0.0 - 1.0 07/04 [facility] CHEM PANEL Total Protein 5.7 6.4 - 8.4 07/04 [facility] CHEM PANEL Alk Phos 61 39 - 136 07/04 [facility] CHEM PANEL Albumin Lvl 3.2 3.5 - 5.0 07/04 [facility] CHEM PANEL ALT 21 0 - 65 07/04 [facility] CHEM PANEL AST 16 0 - 37 07/04 [facility] CHEM PANEL Bili Direct 0.1 0.0 - 0.3 07/04 [facility] CHEM PANEL Bili Total 0.4 0.2 - 1.3 07/04 [facility] CHEM PANEL Phosphorus 3.3 2.5 - 4.5 07/04 [facility] CHEM PANEL Magnesium Lvl 1.8 1.8 - 2.4 07/04 [facility] CHEM PANEL eGFR 66 07/04 <sup>3</sup>R esult [...] PANEL AGAP 11.5 10.0 - 07/04 . [facility] CHEM PANEL Calcium Lvl 8.3 8.5 - 10.5 07/04 [facility] CHEM PANEL Sodium Lvl 144 135 - 145 07/04 [facility] CHEM PANEL Potassium Lvl 4.5 3.5 - 5.1 07/04 [place] [facility] CHEM PANEL Chloride Lvl 113 95 - 109 07/04 s [facility] CHEM PANEL CO2 24 24 - 32 07/04 [facility] CHEM PANEL Glucose Lvl 107 70 - 99 07/04 <sup>6</sup>I nterpretive Medical Data: Adult Center reference range values reflect the clinical guidelines
of the [place] [employer]. CHEM PANEL BUN 12 7 - 22 07/04 [facility] CHEM PANEL Creatinine 0.9 0.5 - 1.4 07/04 [facility] HEMATOLOGY INR 1.14 0.85 - 07/04 <sup>12</sup> [...] Seconds HEMATOLOGY PT 14.7 12.0 - 07/04 [facility] . Medical Center PARATHYROID Ca Norm WB 1.06 1.05 - 07/04 [facility] PROFILE 10.01 [facility] Center PARATHYROID Ca Ion WB 1.06 1.05 - 07/04 [facility] PROFILE 10.01 Medical Center DRUG SCREEN UDS Note See Note 9 07/03 <sup>9</sup>I [facility] * nterpretive Medical (07/03/14 10:50 AM) Data: Drugs Center reported as positive have not been confirmed by a second
ct thod and should be used for medical [...] Opiate Scr Negative Negative 07/03 [place] * Medical (07/03/14 10:50 AM) Cent er DRUG [...] LIPIDS CHD Risk 1.95 3.90 - 07/03 [facility] 5.80 /2013 [facility] LIPIDS VLDL 8 07/03 [facility] LIPIDS LDL 72 <=99 mg/dL 07/03 [facility] (Calculated) [facility] LIPIDS Trig 42 <=149 07/03 [facility] mg/dL [facility] LIPIDS Chol 164 <=199 07/03 [facility] mg/dL [facility] LIPIDS HDL 84 >=61 mg/dL 07/03 <sup>7</sup>R s esult Medical Comment: Center Specimen Slightly Hemolyzed. SPECIAL Hgb A1C 4.9 <=5.6 % 07/03 [facility] CHEMISTRY [facility] URINE AND UA <=1.0 0.1 - 1.0 07/03 [facility] STOOL Urobilinogen mg/dL [facility] URINE AND UA Bacteria Occasional None Seen 07/03 [place] STOOL /HPF /HPF /2013 [facility] URINE AND UA Mucus Few /LPF None Seen 07/03 [place] STOOL /LPF /2013 [facility] URINE AND UA Amorph Occasional [place] /HPF /HPF /2013 [facility] URINE AND UA Sq Epi Occasional Few /LPF 07/03 [facility] STOOL /LPF [facility] URINE AND UA WBC 4 0 - 5 07/03 [facility] STOOL [facility] URINE AND UA Nitrite Negative Negative 07/03 [facility] STOOL (07/03/14 10:50 AM) /2013 [facility] URINE AND UA Blood Negative Negative 07/03 [facility] STOOL (07/03/14 10:50 AM) [facility] URINE AND UA Ketones Negative Negative 07/03 [facility] mg/dL mg/dL [facility] URINE AND UA RBC 2 0 - 2 07/03 [facility] URINE AND UA Leuk Est Negative Negative 07/03 [facility] STOOL (07/03/14 10:50 AM) [facility] URINE AND UA Color Light Yellow Yellow 07/03 [facility] STOOL *NA* /2013 Medical (07/03/14 10:50 AM) Cent er URINE AND UA pH 5.0 5.0 - 8.0 07/03 [facility] STOOL [facility] URINE AND UA Bili Negative Negative 07/03 [facility] *NA* [facility] (07/03/14 10:50 AM) Cent er URINE AND UA Glucose Negative Negative 07/03 [facility] mg/dL mg/dL [facility] URINE AND UA Turbidity Slight Clear 07/03 [facility] *ABN* Medical (07/03/14 10:50 AM) Cent er URINE AND UA Spec Grav 1.007 <=1.030 07/03 [facility] URINE AND UA Protein Negative Negative 07/03 [facility] mg/dL mg/dL [facility] BACTERIAL - MRSA by PCR Negative 16 07/03 <sup>16</sup > [facility] [place] [place] (07/03/14 3:11 AM) Interpretive Medical Data: Center [...] by the Molecular Diagnostic Laboratory within the [facility]. The [facility] Diagnostic Laboratory is authorized under the Clinical Laboratory Improvement Amendment of 1988 (CLIA-88) to perform high complexity testing. CARDIAC Troponin-I <0.02 0.00 - 1027 [place] ENZYMES 0.40 [facility] CARDIAC Total CK 51 12 - 191 07/03 [facility] CHEM PANEL Phosphorus 2.8 2.5 - 4.5 07/03 [facility] CHEM PANEL Magnesium Lvl 1.7 1.8 - 2.4 07/03 xa [facility] CHEM PANEL Total Protein 5.6 6.4 - 8.4 07/03 [facility] CHEM PANEL Albumin Lvl 3.0 3.5 - 5.0 07/03 a s [facility] CHEM PANEL Globulin 2.6 2.0 - 4.0 07/03 [facility] CHEM PANEL A/G Ratio 1.2 0.7 - 1.6 07/03 [facility] CHEM PANEL ALT 26 0 - 65 07/03 [facility] CHEM PANEL Alk Phos 66 39 - 136 07/03 [facility] CHEM PANEL AST 18 0 - 37 07/03 [facility] CHEM PANEL Bili Indirect 0.1 0.0 - 1.0 07/03 xa [facility] CHEM PANEL Bili Total 0.2 0.2 - 1.3 07/03 [facility] CHEM PANEL Bili Direct 0.1 0.0 - 0.3 07/03 [facility] HEMATOLOGY PTT 28.0 22.9 - 07/03 <sup>15</sup> [place] 35.8 Interpretive Medical Data: Heparin Center Therapeutic Range: 57 - 92 Seconds PARATHYROID Ca Norm WB 1.01 1.05 - 07/03 [place] PROFILE 1. [facility] PARATHYROID Ca Ion WB 1.04 1.05 - 07/03 [place] PROFILE 1. [facility] CARDIAC Troponin-T 0.031 0.000 - 07/03 [place] ENZYMES 0.100 [facility] BLOOD BANK Antibody Scrn Negative 07/03 [place] RESULTS (07/02/14 11:20 PM) /2013 [facility] BLOOD BANK ABO/Rh O POS 07/03 [place] RESULTS [facility] CARDIAC Troponin-I <0.02 0.00 - 07/03 [place] ENZYMES 0.40 [facility] CARDIAC Total CK 59 12 - 191 07/03 [facility] [place] ENZYMES /2014 [facility] CARDIAC CK MB 0.7 0.5 - 3.6 07/03 [facility] ENZYMES [facility] CARDIAC CK MB Index 1.2 0.0 - 2.5 07/03 [facility] ENZYMES [facility] HEMATOLOGY Basophils # 0.0 0.0 - 0.2 07/03 [place] [facility] HEMATOLOGY RBC Morph Normal 07/03 [facility] (07/02/14 10:15 PM) [facility] HEMATOLOGY Plt Morph Normal 07/03 [facility] (07/02/14 10:15 PM) [facility] CHEM PANEL POC 1.2 0.5 - 1.4 07/03 [facility] Creatinine [facility] Pathology Reports No Data Provided for This Section Diagnostic Reports No Data Provided for This Section Consultation Notes No Data Provided for This Section Discharge Summaries No Data Provided for This Section History and Physicals No Data Provided for This Section Vital Signs Vital Sign Value Date Comments Source Heart Rate 87 03/08/2019 [facility] Respitory Rate 16 03/08/2019 [facility] Systolic (mm Hg) 119 03/08/2019 [facility] Diastolic (mm Hg) 77 03/08/2019 [facility] u[facility] Height 162.56 cm 07/20/2018 [facility] BMI Calculated 25.8 07/20/2018 [facility] Weight 68.182 07/20/2018 [facility] Heart Rate 71 07/20/2018 [facility] Respitory Rate 16 07/20/2018 [facility] Systolic (mm Hg) 124 07/20/2018 [facility] Diastolic (mm Hg) 82 07/20/2018 [facility] u[facility] Systolic (mm Hg) 147 07/08/2014 [facility] dical Center Respitory Rate 35 07/08/2014 [facility] kami Center Diastolic (mm Hg) 74 07/08/2014 [facility] [place] [facility] edical Center Respitory Rate 22 07/07/2014 [facility] Center Diastolic (mm Hg) 68 07/07/2014 [facility] [place] [facility] edical Center Respitory Rate 20 07/07/2014 [facility]ami Center Systolic (mm Hg) 126 07/07/2014 [facility] dical Center Diastolic (mm Hg) 75 07/07/2014 [facility] [place] [facility] edical Center Systolic (mm Hg) 118 07/07/2014 [facility] dical Center Heart Rate 69 07/04/2014 [place] [facility] Heart Rate 72 07/04/2014 [facility] Heart Rate 67 07/04/2014 [place] [facility] Height 162.56 cm 07/03/2014 [place] [facility] Weight 83 07/03/2014 [place] [facility] BMI Calculated 31.41 07/03/2014 [facility] Height 162.56 cm 07/03/2014 [place] [facility] Weight 83 07/03/2014 [place] [facility] BMI Calculated 31.41 07/03/2014 [facility] Temperature Oral (F) 97.0 F 07/03/2014 [facility] Temperature Oral (F) 97.9 F 07/03/2014 [facility] BMI Calculated 30.1 07/03/2014 [facility] Weight 79.545 07/03/2014 [place] [facility] Height 162.56 cm 07/03/2014 [place] [facility] Encounters Location Location Encounter Encounter Reason Attending ADM [place] Stat us Source Details Type Number For Provider Date Date Visit [facility] [id number] [place] 07/03 07/08 [facility] Outpatient [id number] SONIA 12/15 Active [facility] Outpatient [id number] SONIA 03/16 Active [facility] Outpatient [id number] SONIA 07/20 Active [facility] [place] [facility] Outpatient [id number] Sonia 07/20 07/21 [facility] [place] Outpatient [id number] SONIA 11/09 Active [facility] [place] Outpatient [id number] Sonia 03/08 Active [facility] [place] [facility] Outpatient [id number] Sonia 03/08 03/09 [facility] [place] Outpatient [id number] Sonia 09/13 Active [facility] [place] [facility] Ambulatory [id number] Sonia 09/13 09/13 [facility] /2019 [facility] [place] Outpatient [id number] Sonia 11/14 Active [facility] [place] [facility] Amb[facility] [id number] Sonia 11/14 11/14 [facility] [place] Outpatient [id number] Sonia 02/21 Active [facility] [place] [facility] Outpatient [id number] Sonia 02/21 02/22 [facility] [place] Outpatient [id number] Sonia 06/20 Active [facility] [place] Outpatient [id number] Sonia 06/20 Active [facility] [place] [facility] Outpatient [id number] Sonia 06/20 06/21 [facility] [place] [facility] Amb[facility] [id number] Sonia 06/20 06/20 [facility] Pre[facility] [place] Outpatient [id number] Sonia 12/19 Active [facility] [place] Procedures Procedure Code Date Perfomer Comments Source Splenectomy [id number] [facility] Assessment and Plan Assessment and Plan Date Source Extracted from:Title: Progress Note * 07/08/2014 [facility] Author: Yousif Arrieta MD Date: 07/07/14 [...] sub q. DISPO: [place] in patient rehab [facility] hospitalist is consult. Pager [phone] Extracted from:Title: Clinical Document Author: Nidhi Muñiz [...] and near fall again, called 911, admit [facility] 07/02/14 L humerus/forearm x-rays negative for fr acture, EKG A -fib, diagnosed R MCA/group program manager/cerebellar infarct s/p iv tpa, cta showed R M1 occlusion and R distal group program manager occlusion s/p thrombectomy with recanalization o f [...] Bedtime 07/05/14 cefTRIAXone (Rocephin) 1 gm IVPB [id number] 07/03/14 docusate 100 mg PO Q12H 07/04/14 [...] mg PO Q4H 07/02/14 bisacodyl 10 mg [place] Daily 07/02/14 enalapril 0.625 mg IVP Q6H [...] involving the anterior insula. 3. 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 4. Infarct of the inferior [...] ap 61 ASSESSMENT:68 yo LH F admit [facility] 07/02/14 diagnosed R MCA/group program manager/cerebellar infarct with functional deficits of subjectively decreased vision L eye, L leg>L arm weakness, L>R dysmetria. RECOMMEND: Neurorehabilitation PT/OT/ST. cleared for regular diet with thin liquids. 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 Treat fevers and blood sugars aggressively. 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 NPO prior to bedside swallow assessment; and escalation of care as determined by nurse DVT prophylaxis with SCDs. ======== THE FOLLOWING WERE PRESENT ON ADMISSION: STUDENT LIFE ADVISOR -Hemiparesis or Hemiplegia ACUTE STROKE BENCHMARKS: TIME PATIENT LAST SEEN NORMAL 20:15 CODE STROKE ACTIVATION (CARE4 COMPUTER TIME) approximately 21:25 NEUROLOGY RESIDENT ARRIVAL AT THE BEDSIDE (CARE4 COMPUTER T BERNICE) 21:30 IV TPA BOLUS (TIME AND DOSE) 21:48 7.2mg IV TPA INFUSION (TIME AND DOSE) 21:49 64.4mg DELAYS IN THE CODE STROKE PROCESS none The patient was discussed with Dr. Dominguez, the fellow control officer manager. Klaus Holly MD PGY2 Neurology Resident MSO [phone] Pager [phone] Addendum by Brissa Dominguez MD on 07/03/2014 02:05 Stroke Fellow Addendum Please refer to the resident physician's note above for full details. I have discussed the case with the control officer manager resident and agree with their assessment [...] headache. Head CT s howed old R BAR AND FILLER ASSEMBLER territory and R cerebell ar infarcts though [...] ___2-ne ither 1c. LOC Commands open/close eyes, mental health program specialist/r elease non-paretic hand; __X_0-both ___1-one ___2-neither 2. [...] likely cardioemoblic. She has a prior R BAR AND FILLER ASSEMBLER and R cerebellar infarct however the y radiographically appear older than jus t 4 days ago but if this event 4 days ago does represent a recent stroke, she would be at increased risk for hemorragic conversion. [] repeat head CT @ 6am to look monitor for hemorrhagic conv ersion - Post tPA vital signs and neurochecks per protocol - Goal [id number] - HOB flat, NS 125cc/hr, aggressive blood [...] History Date Source Social History TypeResponse 07/03/[address] [facility] [...]
--- OUTSIDE RECORDS SUMMARY | 2020-09-11 14:39 | XMS REPORT | Continuity of Care Document ---
:1945 Author Organization [facility] t Address [address] [place] [address] Care Team Providers Name Role Phone Tad Velasquez Attending Clinician Greg DORMAN, A Attending Clinician Only, Test Attending Clinician Unavailable Pimentel Attending Clinician 1, Lab Attending Clinician Unavailable Mat Attending Clinician Greg DORMAN, A Admitting Clinician Rivero Admitting Clinician Problems Condition Condition Condition Status Onset Resolution Last Treating Co mments Source Name Details Category Date Date Treatment Clinician Date ACUTE Diagnosis Active 2013-092014-08-16 Mem oria STROKE 0-26 11:11:00 l ACUTE 00:00: [place] STROKE 00 Active 07/02/2014 [facility] CVA Diagnosis Active 2013-092014-07-02 Mem oria 0-26 22:35:00 l CVA 00:00: [place] 00 Active 07/02/2014 [facility] SARAH Diagnosis Active 2013-092014-07-03 Memoria BILLING 0-26 11:00:00 l 00:00: [place] SARAH 00 BILLING Active 07/02/2014 [facility] Closed Closed Problem Active [facility] [...] (disorder) venous thrombosis (disorder) [facility] Atrial Problem Active 2020-06-23 Memor ia fibrillati 00:46:26 l on Atrial [place] (disorder) fibrillati on (disorder) Active Problem 06/23/2020 [facility] Parkinson' Problem Active 2020-06-23 M emoria s disease 00:46:26 l (disorder) Braxton n Parkinson' s disease (disorder) Active Problem 06/23/2020 [facility] CVA Diagnosis Active 2014-08-16 Mem oria 11:11:00 l CVA [place] Active [facility] Allergies, Adverse Reactions, Alerts Allergy Allergy Status Severity Reaction(s) Onset Inactive Treating Comm ents Source Name Type Date Date Clinician Keflex Adverse Active rash [facility] sulfa sulfa Active Memoria drugs drugs quincy [place] Polyspor Polyspor Active Memori a in in l [place] Social History Social Habit Start Date Stop Date Quantity Comments Source Social History 2014-07-03 2014-07-03 Scotty bennett 07:23:32 07:23:32 Medications Ordered Filled Start Stop Current Ordering Indication Dosage Frequency Signature Comments Components Source Medication Medication Date Date Medication? 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, Weight Carbidopa Yes 1 tab, PO, Me moria 25 MG / 7-02 TID, # 90 l Levodopa 19:59: tab, 4 [place] 100 MG Oral 45 Refill(s), Tablet Pharmacy: [facility] [id number] Tylenol # 3 Tylenol # 3 Yes Ryland one tab [facility]: [facility] 00 [facility] Esomeprazol 2017-09 Yes 40 mg = 1 M emoria e 40 MG 1-13 cap, PO, l Enteric 21:13: Daily, 0 Braxton n Coated 00 Refill(s) Capsule Carbidopa 2017-09 Yes 1 tab, PO, Me moria 25 MG / 1-13 TID, # 90 l Levodopa 21:10: tab, 4 [place] 100 MG Oral 58 Refill(s), Tablet Pharmacy: [facility] [id number] Warfarin 2013-09 No Notes: Memoria 0-31 Nurse to l 22:00: ensure [place] 00 documentat ion of patient education per anticoagul ation policy. Avoid large intake of vitamin-K containing foods diet. (Same As: Coumadin) atorvastati 2013-09 Yes 20 mg = 1 M emoria n 20 mg 0-31 tab, PO, l oral tablet 17:34: Bedtime, # [place] 00 30 tab, 3 Refill(s) aspirin 325 2013-09 Yes 325 mg = 1 Memoria mg tablet 0-31 tab, PO, l 17:34: Daily, # [place] 00 100 tab, 3 Refill(s) warfarin 2013-09 Yes 7.5 mg, Memori a 7.5 mg oral 0-31 PO, Q5PM, l tablet 17:34: # 5 tab, 0 Franchesca nn 00 Refill(s) OLANZapine 2013-09 Yes 2.5 mg = 1 M emoria 2.5 mg oral 0-31 tab, PO, l tablet 17:34: Q6H, [place] 00 Agitation, 0 Refill(s) 2013-09 Yes 0.4 mg = 1 Mem oria Multivitami 0-31 tab, PO, l ns with 17:34: Daily, 0 Braxton n Folic Acid 00 Refill(s) 0.4 mg oral tablet Folic Acid 2013-09 Yes 1 mg = 1 Mem oria 1 MG Oral 0-31 tab, PO, l Tablet 17:34: Daily, 0 [place] 00 Refill(s) Docusate 2013-09 Yes 100 mg = 1 Mem oria Sodium 100 0-31 cap, PO, l MG Oral 17:34: Q12H, 0 [place] Capsule 00 Refill(s) benzonatate 2013-09 Yes 100 mg = 1 Memoria 100 mg oral 0-31 cap, PO, l capsule 17:34: TID, [place] 00 Cough, 0 Refill(s) Acetaminoph 2013-09 Yes 99.5 F, 0 Memoria en 325 MG 0-31 Refill(s) l Oral Tablet 17:34: Braxton n 00 Warfarin 2013-09 No Notes: Memoria 0-30 Nurse to l 22:00: ensure [place] 00 documentat ion of patient education per anticoagul ation policy. Avoid large intake of vitamin-K containing foods diet. (Same As: Coumadin) cefpodoxime 2013-09 No 100 mg, Mem oria 0-30 Route: PO, l 16:17: Drug form: [place] 00 TAB, [id number], Dosing Weight 83, kg, Priority: NOW, Start date: 07/06/14 11:17:00, Duration: 7 day, Stop date: 07/12/14 23:17:00 benzonatate 2013-09 No Notes: Ken leonie 0-30 (Same As: l 07:28: Tessalon [place] 00 Neda) "Do Not Crush" Mag-Ox 400 2013-09 No Notes: Memor ia 0-29 (Same as: l 20:55: Mag-Ox [place] 00 400) Magnesium oxide 593bb=913b g elemental magnesium Dose=____m g magnesium oxide (___mg elemental magnesium) Lactated 2013-09 No 1,000 mL, Ken leonie Ringers IV 0-29 Rate: 100 l 1000 mL 16:26: ml/hr, [place] 00 Infuse over: 10 hr, Route: IV, Dosing Weight 83 kg, Total Volume: 1,000, Start date: 07/05/14 11:26:00, Duration: 30 day, Stop date: 08/04/14 11:25:00 Lactated 2013-09 No 1,000 mL, Ken leonie Ringers IV 0-29 Rate: 100 l 1,000 mL 15:06: ml/hr, [place] 00 Infuse over: 10 hr, Route: IV, [...] 125 l IV 1,000 mL 14:24: ml/hr, Infuse over: 8 hr, Route: IV, [...] Memoria 0-29 Route: IM, l 02:00: Q4H, Dosing Weight 83, kg, Start date: [...] Lipitor) sennosides, 2013-09 No Notes: Ken leonie ALF 0-27 (Same as: l 22:00: Senokot) pantoprazol 2013-09 No Notes: For Memoria e 0-27 IV push l 21:30: reconstitu te with 10 ml 0.9% sodium chloride and push over 2 minutes. (Same as: Protonix) Sodium 2014-1 No 1,000 mL, Memori a Chloride 0-27 Rate: 75 l 0.154 21:25: ml/hr, [place] MEQ/ML 00 Infuse Injectable over: 13.3 Solution hr, Route: IV, Dosing Weight 83 kg, Total Volume: 1,000, Start date: 07/03/14 16:25:00, Duration: 12 hr, Stop date: 07/04/14 4:24:00 Thiamine 2013-09 No Notes: Memoria 0-27 (Same As: l 17:00: Vitamin [place] 00 B1) 2013-09 No 1 tab, Memoria Multivitami 0-27 Route: PO, l ns with 17:00: Drug Form: Herm clara Folic Acid 00 TAB, 0.8 mg oral Dosing tablet Weight 83, kg, Daily, Start date: 07/03/14 12:00:00, Duration: 30 day, Stop date: 08/02/14 9:00:00 Saline 2013-09 No Notes: Memoria Flush 0.9% 0-27 (Same as: l 14:00: BD [place] 00 Posiflush) pneumococca 2013-09 No Notes: Ken [...] 14:00: Fluzone Braxton n Inactivated 00 [place] A-[place]- nt) -2006 (H3N2)-like virus (A-[place]- -2006 [facility] X-175C) strain / Influenza Virus Vaccine, Inactivated A-[place]- 59-2007, IVR-148 (H1N1) strain / Influenza Virus Vaccine, Inactivated , B-[place]- -2006-lik Docusate 2013-09 No Notes: Memoria 0-27 (Same as: l 14:00: Colace) [place] 00 (Do Not Crush) Diltiazem 2013-09 No [...] 0-27 not exceed l 03:10: 4 gm/day. [place] 00 (Same as: Tylenol) Bisacodyl 2013-09 No Notes: Memori a 0-27 (Same As: l 03:10: Dulcolax, Bisco-Lax) Nicardipine 2013-09 No Notes: Ken leonie 0-27 Same as: l 03:10: Cardene Concentrat ion: (0.2 mg /1 ml ) Enalapril 2013-09 No Notes: Memori a 0-27 (Same as: l 03:10: Vasotec-IV [place] 00 ) Labetalol 2013-09 No 105mmHg Ken leonie 0-27 l 03:10: [place] 00 Sodium 2013-09 No 1,000 mL, Memori [...] Memoria 0-27 (Same as: l 02:57: Zofran) [place] 00 Zofran 2013-09 No 4 mg, Memoria [...] No 0 Memoria 0-27 Refill(s) l 02:41: [place] 00 Saline 2013-09 No Notes: Memoria Flush [...] Comments Source Heart Rate 2019-03-08 19:24:00 [facility] [place] Respitory Rate 2019-03-08 19:24:00 Memori al [place] Systolic (mm Hg) 2019-03-08 19:24:00 Ken rial [place] Diastolic (mm Hg) 2019-03-08 19:24:00 Mem orial [place] Height 2018-07-20 20:29:00 162.56 cm [facility] [place] BMI Calculated 2018-07-20 20:29:00 Memori al [place] Weight 2018-07-20 20:29:00 [facility] [place] Heart Rate 2018-07-20 20:29:00 [facility] [place] Respitory Rate 2018-07-20 20:29:00 Memori al [place] Systolic (mm Hg) 2018-07-20 20:29:00 Ken rial [place] Diastolic (mm Hg) 2018-07-20 20:29:00 Mem orial [place] Systolic (mm Hg) 2014-07-08 00:00:00 Ken rial [place] Respitory Rate 2014-07-08 00:00:00 Memori al Rbandon Diastolic (mm Hg) 2014-07-08 00:00:00 Mem orial [place] Respitory Rate 2014-07-07 23:00:00 Memori al [place] Diastolic (mm Hg) 2014-07-07 22:00:00 Mem orial [place] Respitory Rate 2014-07-07 22:00:00 Memori al [place] Systolic (mm Hg) 2014-07-07 22:00:00 Ken rial [place] Diastolic (mm Hg) 2014-07-07 20:00:00 Mem orial [place] Systolic (mm Hg) 2014-07-07 20:00:00 Ken rial [place] Heart Rate 2014-07-04 10:50:00 [facility] [place] Heart Rate 2014-07-04 10:47:00 [facility] [place] Heart Rate 2014-07-04 10:33:00 [facility] [place] Height 2014-07-03 07:11:00 162.56 cm [facility] [place] Weight 2014-07-03 07:11:00 [facility] [place] BMI Calculated 2014-07-03 07:11:00 Memori al [place] Height 2014-07-03 07:10:00 162.56 cm [facility] [place] Weight 2014-07-03 07:10:00 [facility] [place] BMI Calculated 2014-07-03 07:10:00 Tamiko tellez [place] Temperature Oral (F) 2014-07-03 03:45:00 97.0 F [facility] [place] Temperature Oral (F) 2014-07-03 03:00:00 97.9 F [facility] [place] BMI Calculated 2014-07-03 02:34:00 Tamiko tellez [place] Weight 2014-07-03 02:34:00 [facility] [place] Height 2014-07-03 02:34:00 162.56 cm [facility] [place] Procedures Procedure Date / Time Performed Performing Clinician [facility] e Splenectomy [facility] [place] Encounters Start End Encounter Admission Attending Care Care Encounter Source Date/Time Date/Time Type Type Clinicians Facility Department ID 2020-06-20 2020-06-20 [id number] 13:45:00 23:59:59 Tad 09 Jordy 2020-06-20 2020-06-20 [id number] 13:45:00 13:45:00 Tad 08 Jordy 2020-02-29 2020-02-29 [facility] [id number] 08:41:00 11:46:00 Encounter Ryland [id number] [place] [id number] [place] [address] [id number] [place] 071 2020-02-28 2020-02-28 Laboratory Only, [place] [id number] 10:06:51 10:21:51 Only Test Isauro [id number] [place] 4.2.7.2.686 [place] [id number] 2020-02-28 2020-02-28 Telephone ROSEANN Pimentel [id number] 00:00:00 00:00:00 Alannah ANAND [id number] [id number] 2020-02-24 2020-02-24 Residential Recycle Driver 1, [facility] [id number] 15:00:04 15:15:04 Visit Isauro [id number] [place] [id number] [place] [id number] 2020-02-22 2020-02-22 Outpatient JOSE VelasquezSCHER JOSESCHER [id number] 13:45:00 23:59:59 Tad 07 Jordy 2019 2019 Outpatient JOSE VelasquezSCHER JOSESCHER [id number] 14:00:00 14:00:00 Tad 06 Jordy 2019-09-13 2019-09-13 Outpatient KALEIGH VelasquezSCHER [id number] 14:00:00 14:00:00 Tad 05 Jordy 2019-05-16 2019-05-16 Residential Recycle Driver 1, [facility] Lab [facility] [id number] 12:51:29 13:06:29 Visit Isauro [id number] [place] 4.2.7.2.686 [place] [id number] 2019-03-08 2019-03-08 Outpatient KALEIGH VelasquezSCHER [id number] 14:00:00 23:59:59 Tad 04 Jordy 2019-01-17 2019-01-17 [facility] [id number] [facility] 11:00:00 11:00[facility]00 [facility] 2018-12-31 2018-12-31 [facility] [id number] 09:30:00 09:30:00 [facility] Clinics 2018-12-23 2018-12-23 [facility] [id number] 14:30:00 14:30:00 [facility] 2018-12-20 2018-12-20 [facility] [id number] 10:18:00 10:18:00 [facility] 2018-12-20 2018-12-20 [facility] [id number] 10:17:00 10:17:00 [facility] ent Clinics 2018-12-20 2018-12-20 [facility] [id number] 09:30:00 09:30:00 [facility] 2018-12-13 2018-12-13 [facility] [id number] 09:00:00 09:00:00 [facility] 2018-12-01 2018-12-01 [facility] [id number] 10:00:00 10:00:00 [facility] 2018-11-08 2018-11-08 [facility] [id number] 14:30:00 14:30:00 [facility] 2018-11-05 2018-11-05 [facility] [id number] 10:15:00 10:15:00 [facility] 2018-07-20 2018-07-20 [id number] 14:30:00 23:59:[address] [place] [address] 2014-07-02 2014-07-07 Outpatient GLORIA Rivero [facility] [id number] 21:22:00 19:50:00 Raffaeleu-Lima 67 Results Test Description Test Time Test Comments Results Result Sourc e Comments URINE AND STOOL 2014-07-07 Negative [facility] 20:42:59 (07/07/14 3:42 [place] ) ELECTROLYTES 2014-07-07 14.5 [facility] 06:00:00 [place] ELECTROLYTES 2014-07-07 4.5 [facility] 06:00:00 [place] ELECTROLYTES 2014-07-07 142 [facility] 06:00:00 [place] ELECTROLYTES 2014-07-07 8.6 [facility] 06:00:00 [place] ELECTROLYTES 2014-07-07 22 [facility] 06:00:00 [place] ELECTROLYTES 2014-07-07 110 [facility] 06:00:00 [place] ELECTROLYTES 2014-07-07 58 [facility] 06:00:00 [place] ELECTROLYTES 2014-07-07 1.0 [facility] 06:00:00 [place] ELECTROLYTES 2014-07-07 23 [facility] 06:00:00 [place] ELECTROLYTES 2014-07-07 97 [facility] 06:00:00 [place] HEMATOLOGY 2014-07-07 06:00:00 Test Item Value Reference Range Interpretation Comme nts PT (test code = PT) 12.7 s 12.0-14.7 [facility] PzzgojhARSFNBPBJF6524-35-34 06:00:000.95[facility] 2014-07-07 06:00:0013.8[facility] WsqpfpmYVSJNXWWDT0505-24-23 06:00:003.59[facility] OzlrtllVBISDOAGTV5188-68-54 06:00:0012.1[facility] WanjwmyNAPLNOBWOB4159-57-64 06:00:0011.5[facility] YgsbnsnQWAZDAWNCS0661-68-09 06:00:0036.0[facility] [place] RJPODUTVTL7694-32-64 06:00:45479.3[facility] VluzbgrCHLNDHGUTY6535-89-37 06:00:00 Test Item Value Reference Range Interpretation Comments MCH (test code = MCH) 32.0 pg 27.0-31.0 [facility] ZxmunieZJUTIZTVOD4519-17-97 06:00:0031.9[facility]ann[facility]MATOLOGY 2014-07-07 06:00:0011.4[facility] ZukvedqXQAXOPOLAU0890-44-33 06:00:51544Cfvzhdml RrapgmnXWIMJUUCDZ1563-01-85 06:00:0014.9[facility] HyafgmsBYTLTSHAJB7837-24-66 06:00:003.5[facility] OrwbicvSWKCLBOGSE2657-87-81 06:00:000.4[facility] [place] PEOKIIOAYC9120-01-82 06:00:003.9[facility] IldezsiKKSXRCSMKN1940-95-83 06:00:001.8 [facility] RfftjtqMFDTXNLRND9911-86-22 06:00:005.9[facility]ann[facility]MATOLOGY 2014-07-07 06:00:000.4[facility] QbfinszWHXMJSTAYU1184-66-90 06:00:001+ *ABN*(07/07/14 1:00 AM)[facility] VmblwdxRUXKZYGWME3151-59-26 06:00:0032.6[facility] PkiqwxyLGNFTKHEPW6720-73-92 06:00:0048.6[facility] MzempztLKNIGPXEZJ9799-54-44 00:14:38 Test Item Value Reference Range Interpretation Comments PT (test code = PT) 13.9 s 12.0-14.7 [facility] ButvufgAHATRDFJQF0472-33-27 00:14:381.07[facility]annHEMATOLOGY 2014-07-07 00:14:38 Test Item Value Reference Range Interpretation Comments PTT (test code = PTT) 35.0 s 22.9-35.8 [facility] HermannANEMIA EUUOC0801-16-13 07:30:0014.3[facility] HermannANEMIA STUDY 2014-07-06 07:30:24253Auswkane HermannANEMIA FZRUK9378-05-81 07:30:75945Ltschjds HermannANEMIA OTTYN7944-77-75 07:30:0018[facility] HermannANEMIA ZNGRH3531-33-08 07:30:0052[facility] HermannANEMIA LEBQZ0592-11-54 07:30:45960Ynoywkgu [place] ANEMIA TPATL2711-85-92 07:30:84591Wplxukho XqricygFXFSRXAVYN4064-98-36 07:30:00 15.2[facility] UnqrxomWMLJJHPFJF0470-73-24 07:30:000.3[facility]annHEMATOLOGY 2014-07-06 07:30:001.6[facility] DjdlyboHDGACMQCQY5515-85-47 07:30:000.4[facility] KusuulwBNSYIPFHYP6580-80-34 07:30:003.2[facility] UagnafxELVGWXZNVQ3560-14-74 07:30:003.4[facility] BdywkfoVNMSCLBYRF4731-08-95 07:30:005.3[facility] [place] EDKBBHESFM6170-07-48 07:30:0049.6[facility] GkpmcyxLLPXKWVIHJ1311-71-13 07:30:00 Normal (07/06/14 2:30 AM)[facility] WyuuravENSPBFWQKD4336-15-79 07:30:0031.6 [facility] LodoxxpRHYPQQYGJX8499-19-29 07:30:00Normal (07/06/14 2:30 AM)[facility] RwntlxsGRHWBAFWNG1191-80-87 07:30:0010.6[facility] ZtcsuicZZXGTSGQBH8016-17-54 07:30:0097.8[facility] XqhxlvqHZJBGMHSRO2709-20-60 07:30:0037.0[facility] [place] BQFFGSASAH7420-26-21 07:30:0012.1[facility] JllvaxsXLWQQETOEB4832-32-82 07:30:00 3.78[facility] GkywmioCBLKGHTTHO3589-36-74 07:30:0032.8[facility] HermannHEMATOLOGY 2014-07-06 07:30:00 Test Item Value Reference Range Interpretation Comments MCH (test code = MCH) 32.1 pg 27.0-31.0 [facility] ZwrcpexTGJKNWGBGV1047-26-47 07:30:0013.9[facility] HermannHEMATOLOGY 2014-07-06 07:30:0012.2[facility] TywyisiVSQABCEYYO4803-58-37 07:30:63961Dksqpvws HermannCARDIAC RKTYVTQ7237-65-18 21:20:06<0.010[facility] HermannCARDIAC CCARWHQ1298-02-80 21:20:86011Oabesjjk HermannCARDIAC SRMXCQV6072-61-26 21:20:06 0.02[facility] HermannCARDIAC ORCMHCJ6331-49-56 21:20:061.0[facility] HermannCARDIAC BRLZXCV6886-43-90 21:20:061.2[facility] XlqyovgDSJYLHEWJN8129-57-88 21:20:060.7 Memorial DarwowiGVCOAQQTJS1713-78-27 21:20:062.4[facility] HermannHEMATOLOGY 2014-07-05 21:20:065.3[facility] BnluvnvZDMHTJNKTF8774-07-14 21:20:062.1[facility] UyhojqiUKEOQKYMNG2026-06-49 21:20:061.4[facility] TnxgwbqIMIZRBFLWO3072-13-42 21:20:060.2[facility] UogxemiWIJXDEIESN4551-19-11 21:20:060.1[facility] [place] LYTQNBBAER3020-66-86 21:20:0658.2[facility] XbqeadcGNWGZFIIGK9345-93-73 21:20:06 15.5[facility] BtrupsgLDCOPNMHUD5591-45-77 21:20:0623.2[facility] HermannHEMATOLOGY 2014-07-05 21:20:0633.0[facility] EewowjpXEPPQMCQGM7008-83-72 21:20:0614.0[facility] DgfcssbXFQXNZEDUR5937-74-75 21:20:069.1[facility] GpzpxzaNLDYJSRVKJ0773-45-92 21:20:063.13[facility] ImtsnrsWNNBCSUEKF1993-65-14 21:20:0610.1[facility] [place] MNIRPLJEWL6305-24-43 21:20:32920Txgfwrti ZqmmtgjAORYHHLOVN5663-86-47 21:20:06 12.1[facility] YaopxgsUXIEOMUGUS2095-61-98 21:20:0630.7[facility] HermannHEMATOLOGY 2014-07-05 21:20:06 Test Item Value Reference Range Interpretation Comments MCH (test code = MCH) 32.3 pg 27.0-31.0 [facility] PegpswqKJNRQZBYDH1173-11-52 21:20:0698.0[facility] HermannHEMATOLOGY 2014-07-05 15:35:400.1[facility] HermannCHEM NLBHL5076-74-48 06:00:001.6[facility] HermannCHEM FMXJJ7446-87-89 06:00:003.7[facility] HermannCHEM XGVSN0065-38-58 06:00:0076[facility] HermannCHEM CYHSD6674-37-92 06:00:0025[facility] HermannCHEM VHZIZ3221-88-60 06:00:008.3[facility] HermannCHEM VLCIS3195-56-10 06:00:84186 [facility] HermannCHEM EXUGL3486-02-50 06:00:0015[facility] HermannCHEM PANEL 2014-07-05 06:00:000.8[facility] HermannCHEM NLHGI6022-81-99 06:00:68579Eoxcbpez HermannCHEM IMEMW6020-04-05 06:00:004.5[facility] HermannCHEM PYALJ1833-00-16 06:00:0089[facility] HermannCHEM IQRLE8438-16-73 06:00:0012.5[facility] HermannDRUG CYBIPT6615-26-94 00:50:00Negative *NA*(07/04/14 7:50 PM)[facility] HermannDRUG TFUMER6815-72-75 00:50:00See Note 8(07/04/14 7:50 PM)[facility]annDRUG SCREEN 2014-07-05 00:50:00Negative *NA*(07/04/14 7:50 PM)[facility]annDRUG SCREEN 2014-07-05 00:50:00Positive *ABN*(07/04/14 7:50 PM)[facility]annDRUG SCREEN 2014-07-05 00:50:00Negative *NA*(07/04/14 7:50 PM)[facility]annDRUG SCREEN 2014-07-05 00:50:00Negative *NA*(07/04/14 7:50 PM)[facility]annDRUG SCREEN 2014-07-05 00:50:00Negative *NA*(07/04/14 7:50 PM)[facility]annDRUG SCREEN 2014-07-05 00:50:00Negative *NA*(07/04/14 7:50 PM)[facility]annUR[facility] AND UIHBW8587-48-81 00:50:001[facility]annURINE AND XKZWC6157-81-01 00:50:001 [facility]ann[facility] AND WNHHA0509-88-62 00:50:009[facility]ann[facility] AND CMABM9283-46-37 00:50:005.0[facility]ann[facility] AND LXERG5210-90-12 00:50:00 1.010[facility]ann[facility] AND ATYAC2195-84-48 00:50:00Moderate *ABN*(07/04/14 7:50 PM)[facility] RHRGR9728-13-76 00:50:00Negative *NA*(07/04/14 7:50 PM)[facility] NAGLZ0142-27-25 00:50:00Negative (07/04/14 7:50 PM)[facility] BTZHE4980-40-73 00:50:00Negative (07/04/14 7:50 PM)[facility] AND IQYGQ1991-16-08 00:50:00Yellow *NA*(07/04/14 7:50 PM)[facility] AND BAIID3751-89-35 00:50:00Clear (07/04/14 7:50 PM)[facility] HermannCHEM VLLYI7794-65-18 22:40:001.0[facility] HermannCHEM PANEL 2014-07-04 22:40:002.5[facility] HermannCHEM VPIVQ3262-43-20 22:40:001.3[facility] HermannCHEM RMYVI2584-23-01 22:40:000.3[facility] HermannCHEM DCQWD6098-16-21 22:40:005.7[facility] HermannCHEM ZBPSQ4957-61-70 22:40:0061[facility] HermannCHEM JUKIX4878-85-56 22:40:003.2[facility] HermannCHEM WYWMC1153-03-35 22:40:0021 [facility] HermannCHEM LMPOG6306-10-64 22:40:0016[facility] HermannCHEM PANEL 2014-07-04 22:40:000.1[facility]annCHE[facility] LSMNM0864-71-31 22:40:000.4[facility]annCHE[facility] CVTUN6075-60-03 07:45:003.3[facility]annCHE[facility] UQWEX9182-22-54 07:45:001.8[facility]annCHE[facility] GKSSW7398-23-62 07:45:0066[facility]CHE[facility] NVVLU7252-73-84 07:45:0011.5[facility]annCHEM ICUKL3437-84-62 07:45:008.3 [facility]annCHE[facility] EOJFR2514-05-39 07:45:70066Nqoquhck HermannCHEM PANEL 2014-07-04 07:45:004.5[facility]annCHEM LOTTS0159-34-69 07:45:89010Rgekxyzi HermannCHEM NXJVT1655-68-41 07:45:0024[facility]annCHE[facility] PTOHR1184-33-37 07:45:36931Lzeyojgg HermannCHEM ZBFXB1495-81-27 07:45:0012[facility]annCHEM XWJFA2817-70-22 07:45:000.9[facility] SgijiwiPTPPGPXRLE0470-40-76 07:45:001.14 [facility] LydgipcTZXQDYCWLD3303-61-48 07:45:00 Test Item Value Reference Range Interpretation Comments PTT (test code = PTT) 26.0 s 22.9-35.8 [facility] IncijlzKFZMPYQJSV2347-50-49 07:45:00 Test Item Value Reference Range Interpretation Comments PT (test code = PT) 14.7 s 12.0-14.7 [facility]annPARATHYROID OIZSYQH7741-64-09 07:45:001.06[facility] PARATHYROID VBXTFMY0207-37-43 07:45:001.06[facility]annDR[facility] QAPJIW1446-24-71 15:50:00See Note 9*NA*(07/03/14 10:50 AM)[facility] [id number] 15:50:00Negative *NA*(07/03/14 10:50 AM)[facility] GFZRZD8311-69-57 15:50:00Negative *NA*(07/03/14 10:50 AM)[facility] OAAHPJ5764-74-74 15:50:00Negative *NA*(07/03/14 10:50 AM)[facility] CBPIMW2646-42-31 15:50:00Negative *NA*(07/03/14 10:50 AM)[facility] RVJDTV3899-23-96 15:50:00Negative *NA*(07/03/14 10:50 AM)[facility] FNUSBI2406-16-19 15:50:00Negative *NA*(07/03/14 10:50 AM)[facility]annDR[facility] ADWEDP7760-06-46 15:50:00Negative *NA*(07/03/14 10:50 AM)[facility] WwzldhxIAPOPL6106-36-04 15:50:001.95[facility] AmexgrkMXWBZY0621-87-34 15:50:008[facility] HermannLIPIDS 2014-07-03 15:50:0072[facility] QuhbrspZVHPHL9298-87-63 15:50:0042[facility] GOUWKK0850-61-64 15:50:93590Novqtnho RxhgowbZKMQUW0390-87-30 15:50:0084[facility]annSPECIAL KRNWYTSUN4487-06-01 15:50:004.9[facility]annURINE AND STOOL 2014-07-03 15:50:004[facility] AND TGPKM0626-58-35 15:50:00Negative (07/03/14 10:50 AM)[facility] JBHKG4873-92-55 15:50:00Negative (07/03/14 10:50 AM)[facility] UOPQD4459-20-57 15:50:002[facility]UR[facility] AND YPKJQ2229-17-21 15:50:00Negative (07/03/14 10:50 AM)[facility] [id number] 15:50:00Light Yellow *NA*(07/03/14 10:50 AM) [facility] [id number] 15:50:005.0[facility] [id number] 15:50:00Negative *NA*(07/03/14 10:50 AM)[facility] [id number] 15:50:00Slight *ABN*(07/03/14 10:50 AM)[facility] [id number] 15:50:001.007[facility]BACT[facility] - [id number] 08:11:53Negative 16(07/03/14 3:11 AM)[facility] [id number] 08:11:00<0.02[facility] [id number] 08:11:0051[facility]annCHE[facility] [id number] 08:11:002.8[facility] [id number] 08:11:001.7[facility]ann[facility] [id number] 08:11:005.6[facility] [id number] 08:11:003.0[facility] [id number] 08:11:002.6 [facility] [id number] 08:11:001.2[facility]ann[facility] PANEL 2014-07-03 08:11:0026[facility]annCHE[facility] [id number] 08:11:0066[facility]CHE[facility] [id number] 08:11:0018[facility]annCHE[facility] [id number] 08:11:000.1[facility] [id number] 08:11:000.2[facility]ann[facility] [id number] 08:11:000.1[facility] [id number] 08:11:00 Test Item Value Reference Range Interpretation Comments PTT (test code = PTT) 28.0 s 22.9-35.8 [facility]ATHYRO[facility] [id number] 08:11:001.01[facility] PARATHYROID [id number] 08:11:001.04[facility] ENZYMES 2014-07-03 06:10:000.031[facility] [id number] 04:20:00 Negative (07/02/14 11:20 PM)[facility] [id number] 03:15:00 <0.02[facility] [id number] 03:15:0059[facility] CARDIAC [id number] 03:15:000.7[facility] [id number] 03:15:001.2[facility] [id number] 03:15:000.0[facility] [id number] 03:15:00Normal (07/02/14 10:15 PM)[facility] [id number] 03:15:00Normal (07/02/14 10:15 PM)[facility] [id number] 02:34:001.2[facility]
[2020-09-11 15:25] LABS: Absolute Lymphocytes (CBC) 2.3 K/uL (0.7-4.9); Basophils % 0.7 % (0-1.3); Hematocrit 41.3 % (36.0-45.0); Lymphocytes % 29.1 % (15.3-44.8); MPV 10.6 fL (7.6-11.3); RBC Red Blood Cell Count 4.31 M/uL (3.86-4.86)
[2020-09-11 15:29] LABS: Protime INR 1.49
--- NOTE | 2020-09-11 15:30 | RAD REPORT ---
EXAM DESCRIPTION: RAD - Chest Single View - 09/11/2020 3:16 pm CLINICAL HISTORY: CHEST PAIN COMPARISON: None TECHNIQUE: AP portable chest image was obtained 09/11/2020 3:16 pm . FINDINGS: Lungs are clear. Heart and vasculature are normal. No measurable pleural effusion and no p neumothorax. No acute bony abnormality seen. Remodeling changes are present from prior proximal right humerus injury. No acute aortic findings suspected. IMPRESSION: No acute cardiopulmonary process.
[2020-09-11 15:55] LABS: ALT/SGPT 14 U/L (12-78); AST/SGOT 15 U/L (15-37); Albumin 3.4 g/dL (3.4-5.0); Alkaline Phosphatase 118 U/L (45-117); BUN Blood Urea Nitrogen 24 mg/dL (7-18); Bicarbonate 30 mmol/L (21-32); Bilirubin Direct 0.1 mg/dL (0-0.2); Bilirubin Total 0.5 mg/dL (0.2-1.0); Glucose Level 103 mg/dL (74-106); Lipase 79 U/L (73-393); Magnesium 2.3 mg/dL (1.8-2.4); NT PRO-BNP 551 pg/mL (<125); Potassium 4.2 mmol/L (3.5-5.1); Protein, Total 7.1 g/dL (6.4-8.2); Sodium Level 143 mmol/L (136-145); Troponin (Emerg Dept Use Only) < 0.02 ng/mL (0.0-0.045)
--- NOTE | 2020-09-11 16:55 | RAD REPORT ---
EXAM DESCRIPTION: CT - Abdomen Pelvis W Contrast - 09/11/2020 4:27 pm CLINICAL HISTORY: ABD PAIN COMPARISON: CT ABD PELVIS W CONTRAST dated 07/29/2008 TECHNIQUE: Biphasic, helical CT imaging of the abdomen and pelvis was performed following 100 ml non -ionic IV contrast. No oral contrast administered. All CT scans are performed using dose optimization technique as appropriate and may include automated exposure control or mA/KV adjustment according to patient size. FINDINGS: No suspicious findings in the lung bases. Liver and pancreas show no suspicious findings. No normal spleen is present. There is a 2-3 centimete r focus of remnant splenic tissue. Patient had a large intra splenic hematoma in 2007. The spleen may be infarcted or may have been resected. Small bowel bladder is present there is mild enhancement wit hout thickening of the gallbladder alston. Gallstones can be occult. No wall thickening, edema or rajeev cholecystic fluid. No biliary tree dilatation. Minimal hiatal hernia present. Symmetric renal function is seen with no hydronephrosis or suspicious renal mass. No pyelonephritis o r acute parenchymal process. No bladder abnormalities. No adrenal abnormalities. Uterus is absent. Pe lvic floor laxity is present. Atrophic ovaries are seen. No adnexal mass. No dilated bowel loops or bowel wall thickening. Appendix is normal. No free air, free fluid or infla mmatory stranding. No mass or bulky lymphadenopathy. No omental thickening. Patient has a small fat only right supraumbilical hernia. No acute component. No suspicious bony findings. IMPRESSION: Contrast enhanced CT abdomen and pelvis showing no acute or emergent finding. Gallbladder wall minimal enhancement seen without thickening or edema. No pericholecystic fluid. Gall stones can be occult on CT imaging. No biliary tree abnormality. 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 There is a small 2-3 centimeter sized remnant splenic nod ule.
--- NOTE | 2020-09-11 17:48 | RAD REPORT ---
EXAM DESCRIPTION: US - Abdomen Exam Limited - 09/11/2020 5:31 pm CLINICAL HISTORY: EPIGASTRIC PAIN COMPARISON: Abdomen Pelvis W Contrast dated 09/11/2020 FINDINGS: No gallstones, sludge or other abnormalities within the gallbladder lumen. There is no wal l thickening or pericholecystic fluid. No common duct stone or biliary tree dilatation identified. IMPRESSION: Normal gallbladder and biliary tree ultrasound.
[2020-09-11 18:11] LABS: Urine Blood TRACE (NEG); Urine Glucose NEGATIVE (NEG); Urine Protein NEGATIVE (NEG); Urine Specific Gravity 1.025 (1.005-1.030)
--- NOTE | 2020-09-11 20:27 | EDPHYS ---
Physician Documentation [facility] Name: Ning Coffey Age: 74 yrs Sex: Female : 1945 Arrival Date: 09/11/2020 Time: 14:29 Bed 19 Private MD: ED Physician Raz Freire HPI: 09/11 14:52 This 74 yrs old Female presents to ER via Ambulatory with complaints of Chest pm1 Pain, Back Pain. 14:52 The patient or guardian reports chest pain that is located primarily in the epigastric pm1 area. Onset: just prior to arrival, today. The pain does not radiate. Associated signs and symptoms: The patient has no apparent associated signs or symptoms, Pertinent negatives: cough, diaphoresis, dizziness, headache, nausea, near syncope, palpitations, shortness of breath, syncope, vomiting. The chest pain is described as sharp. Duration: The patient or guardian reports a single episode, that is now resolved. Modifying factors: The symptoms are alleviated by nothing. the symptoms are aggravated by nothing. Severity of pain: in the emergency department the pain has resolved. The patient has not experienced similar symptoms in the past. The patient has not recently seen a physician. Chest pain lasted 5 minutes. Patient reports sensation of gas pain to bilateral flank area. Historical: - Allergies: 14:37 Levaquin; tw2 14:37 Polysporin; tw2 14:37 Sulfa (Sulfonamide Antibiotics); tw2 - Home Meds: 14:37 Xarelto 15 mg Oral tab daily [Active]; Omeprazole Oral as needed [Active]; tw2 carbidopa-levodopa 25-100 mg Oral tab [Active]; - PMHx: 14:37 Parkinsons; CVA; tw2 - PSHx: 14:37 Hysterectomy; tw2 - Immunization history:: Adult Immunizations. - Social history:: Smoking status: . ROS: 14:52 Constitutional: Negative for fever, chills, and weight loss, Neck: Negative for injury, pm1 pain, and swelling. 14:52 Respiratory: Negative for shortness of breath, cough, wheezing, and pleuritic chest pain, Abdomen/GI: Negative for abdominal pain, nausea, vomiting, diarrhea, and constipation, Back: Negative for injury and pain, : Negative for injury, bleeding, discharge, and swelling, MS/Extremity: Negative for injury and deformity, Skin: Negative for injury, rash, and discoloration, Neuro: Negative for headache, weakness, numbness, tingling, and seizure. 14:52 Cardiovascular: Positive for chest pain, Negative for edema, orthopnea, palpitations. Exam: 14:52 Constitutional: This is a well developed, well nourished patient who is awake, alert, pm1 and in no acute distress. Head/Face: Normocephalic, atraumatic. 14:52 Back: No spinal tenderness. No costovertebral tenderness. Full range of motion. Skin: Warm, dry with normal turgor. Normal color with no rashes, no lesions, and no evidence of cellulitis. MS/ Extremity: Pulses equal, no cyanosis. Neurovascular intact. Full, normal range of motion. 14:52 Chest/axilla: Exam negative for acute changes, Inspection: normal, Palpation: is normal. 14:52 Cardiovascular: Exam negative for acute changes, Rate: normal, Rhythm: irregular, Pulses: no pulse deficits are appreciated, Heart sounds: normal, Edema: is not appreciated. 14:52 Respiratory: Exam negative for acute changes, respiratory distress, shortness of breath, Breath sounds: are clear throughout. 14:52 Abdomen/GI: Inspection: abdomen appears normal, Palpation: soft, in all quadrants, moderate abdominal tenderness, in the epigastric area. 14:52 Neuro: Exam negative for acute changes, Orientation: is normal, Mentation: is normal, Motor: is normal, moves all fours, Sensation: is normal, no obvious gross deficits. Vital Signs: 14:36 BP 136 / 94; Pulse 92; Resp 18; Temp 99.3(TE); Pulse Ox 97% on R/A; Weight 71.67 kg; tw2 Pain 0/10; 16:00 BP 157 / 97; Pulse 103; Resp 23; Pulse Ox 98% ; bp 17:00 BP 143 / 92; Pulse 89; Resp 24; Pulse Ox 99% ; bp 18:38 BP 149 / 84; Pulse 87; Resp 20 S; Pulse Ox 100% on R/A; ca1 20:57 BP 137 / 108; Pulse 86; Resp 16; Pulse Ox 99% on R/A; zb MDM: 14:51 Patient medically screened. pm1 17:28 Data reviewed: vital signs. Data interpreted: Pulse oximetry: on room air is 99 %. pm1 Interpretation: normal. 18:50 Refusal of service: The patient/guardian displays adequate decision making capability pm1 and despite a detailed discussion of alternatives, benefits, risks, and consequences refuses: Admission to the hospital for further work-up and treatment, Patient wants to go home now and does not want to wait for a repeat troponin now. 18:53 ED course: Patient decided to wait for the repeat troponin. pm1 20:25 Counseling: I had a detailed discussion with the patient and/or guardian regarding: lab pm1 results, negative second troponin. Explained to the patient despite the negative troponin I still wanted to admit her for cardiac evaluation. Patient does not want to stay in the hospital and wants to go home. 09/11 14:51 Order name: Basic Metabolic Panel; Complete Time: 15:56 pm1 09/11 14:51 Order name: CBC with Diff; Complete Time: 15:33 pm1 09/11 14:51 Order name: LFT's; Complete Time: 15:56 pm1 09/11 14:51 Order name: Magnesium; Complete Time: 15:56 pm1 09/11 14:51 Order name: NT PRO-BNP; Complete Time: 15:56 pm1 09/11 14:51 Order name: PT-INR; Complete Time: 15:52 pm1 09/11 14:51 Order name: Troponin (emerg Dept Use Only); Complete Time: 15:56 pm1 09/11 14:51 Order name: XRAY Chest (1 view); Complete Time: 15:33 pm1 09/11 14:51 Order name: EKG; Complete Time: 14:51 pm1 09/11 14:51 Order name: Lipase; Complete Time: 15:56 pm1 09/11 15:54 Order name: CT Abd/Pelvis - IV Contrast Only; Complete Time: 17:03 pm1 09/11 16:10 Order name: Urine Dipstick--Ancillary (enter results); Complete Time: 18:32 bd 09/11 17:06 Order name: US Abdomen Limited; Complete Time: 17:48 pm1 09/11 18:33 Order name: Troponin (emerg Dept Use Only): Draw at 1930; Complete Time: 20:15 pm1 09/11 14:51 Order name: Cardiac monitoring; Complete Time: 15:08 pm1 09/11 14:51 Order name: EKG - Nurse/Tech; Complete Time: 15:07 pm1 09/11 14:51 Order name: IV Saline Lock; Complete Time: 15:21 pm1 09/11 14:51 Order name: Labs collected and sent; Complete Time: 15:21 pm1 09/11 14:51 Order name: O2 Per Protocol; Complete Time: 14:53 pm1 09/11 14:51 Order name: O2 Sat Monitoring; Complete Time: 14:53 pm1 09/11 14:51 Order name: Urine Dipstick-Ancillary (obtain specimen); Complete Time: 16:38 pm1 Administered Medications: No medications were administered Disposition: 09/12 06:55 Co-signature as Attending Physician, Raz Freire MD I agree with the assessment and dyan plan of care. Disposition: 09/11/20 20:27 Discharged to Home. Impression: Chest pain, unspecified. - Condition is Stable. - Discharge Instructions: Nonspecific Chest Pain. - Medication Reconciliation Form, Thank You Letter, Antibiotic Education, Prescription Opioid Use form. - Follow up: Emergency Department; When: As needed; Reason: Worsening of condition. Follow up: Private Physician; When: 2 - 3 days; Reason: Recheck today's complaints, Continuance of care, Re-evaluation by your physician. Follow up: Waldemar Hu MD; When: Upon discharge from the Emergency Department; Reason: Recheck today's complaints, Continuance of care, Re-evaluation by your physician. - Problem is new. - Symptoms have improved. Signatures: Dispatcher [employer] Raz Cottrell MD MD cha Marinas, Patrick, CYNDEE [employer]WOR[employer] CHIEF ENGINEER pm1 Amanda Caballero RN RN tw2 Viviana Stoll RN RN zb Corrections: (The following items were deleted from the chart) 09/11 20:28 20:27 09/11/2020 20:27 Discharged to Home. Impression: Chest pain, unspecified. pm1 Condition is Stable. Forms are Medication Reconciliation Form, Thank You Letter, Antibiotic Education, Prescription Opioid Use. Follow up: Emergency Department; When: As needed; Reason: Worsening of condition. Follow up: Private Physician; When: 2 - 3 days; Reason: Recheck today's complaints, Continuance of care, Re-evaluation by your physician. Problem is new. Symptoms have improved. pm1 20:59 20:28 09/11/2020 20:27 Discharged to Home. Impression: Chest pain, unspecified. zb Condition is Stable. Discharge Instructions: Nonspecific Chest Pain. Forms are Medication Reconciliation Form, Thank You Letter, Antibiotic Education, Prescription Opioid Use. Follow up: Emergency Department; When: As needed; Reason: Worsening of condition. Follow up: Private Physician; When: 2 - 3 days; Reason: Recheck today's complaints, Continuance of care, Re-evaluation by your physician. Follow up: Waldemar Hu; When: Upon discharge from the Emergency Department; Reason: Recheck today's complaints, Continuance of care, Re-evaluation by your physician. Problem is new. Symptoms have improved. pm1
--- NOTE | 2020-09-11 20:27 | ER ---
Nurse's Notes [facility] Name: Ning Coffey Age: 74 yrs Sex: Female : 1945 Arrival Date: 09/11/2020 Time: 14:29 Bed 19 Private MD: Diagnosis: Chest pain, unspecified Presentation: 09/11 14:36 Chief complaint: Patient states: i had horrible severe pain right in the middle of my tw2 chest 20 minutes, i have had horrible gas the last couple of days. Coronavirus screen: At this time, the client does not indicate any symptoms associated with coronavirus-19. Ebola Screen: Patient denies travel to an Ebola-affected area in the 21 days before illness onset. Initial Sepsis Screen: Does the patient meet any 2 criteria? HR > 90 bpm. No. Patient's initial sepsis screen is negative. Does the patient have a suspected source of infection? No. Patient's initial sepsis screen is negative. Risk Assessment: Do you want to hurt yourself or someone else? Patient reports no desire to harm self or others. Onset of symptoms was September 11, 2020. 14:36 Method Of Arrival: Ambulatory tw2 14:36 Acuity: DANIELLE 3 tw2 Triage Assessment: 14:37 General: Appears in no apparent distress. obese, well groomed, Behavior is calm, tw2 cooperative, appropriate for age. Pain: Denies pain. Cardiovascular: Reports chest pain. Historical: - Allergies: 14:37 Levaquin; tw2 14:37 Polysporin; tw2 14:37 Sulfa (Sulfonamide Antibiotics); tw2 - Home Meds: 14:37 Xarelto 15 mg Oral tab daily [Active]; Omeprazole Oral as needed [Active]; tw2 carbidopa-levodopa 25-100 mg Oral tab [Active]; - PMHx: 14:37 Parkinsons; CVA; tw2 - PSHx: 14:37 Hysterectomy; tw2 - Immunization history:: Adult Immunizations. - Social history:: Smoking status: . Screenin:45 Abuse screen: Denies threats or abuse. Denies injuries from another. Nutritional bp screening: No deficits noted. Tuberculosis screening: No symptoms or risk factors identified. Fall Risk None identified. Assessment: 14:36 General: SEE TRIAGE NOTE. bp 15:35 Reassessment: No changes from previously documented assessment. Patient and/or family bp updated on plan of care and expected duration. Pain level reassessed. Patient is alert, oriented x 3, equal unlabored respirations, skin warm/dry/pink. UOP PENDING. 17:28 Reassessment: Patient appears in no apparent distress at this time. Patient and/or bp family updated on plan of care and expected duration. Pain level reassessed. Patient is alert, oriented x 3, equal unlabored respirations, skin warm/dry/pink. U/S COMPLETE. 18:38 Reassessment: Patient appears in no apparent distress at this time. Patient and/or ca1 family updated on plan of care and expected duration. Pain level reassessed. Patient is alert, oriented x 3, equal unlabored respirations, skin warm/dry/pink. For repeat trop at 1930. 19:15 Reassessment: REPORT TO PEREZ MURILLO. bp 19:20 General: Appears in no apparent distress. comfortable. Pain: Denies pain. Neuro: Level zb of Consciousness is awake, alert, obeys commands, Oriented to person, place, time, situation. Cardiovascular: Capillary refill < 3 seconds in bilateral fingers Patient's skin is warm and dry. Respiratory: Airway is patent Respiratory effort is even, unlabored, Respiratory pattern is regular, symmetrical. GI: Abdomen is round non-distended. : No signs and/or symptoms were reported regarding the genitourinary system. EENT: No signs and/or symptoms were reported regarding the EENT system. Derm: Skin is intact, is thin, Skin is dry, Skin is normal, Skin temperature is warm. Musculoskeletal: Circulation, motion, and sensation intact. Capillary refill Range of motion: intact in all extremities. 20:20 Reassessment: Patient appears in no apparent distress at this time. No changes from zb previously documented assessment. Patient and/or family updated on plan of care and expected duration. Pain level reassessed. pt awaiting d/c. no c/o of pain at this time. 20:57 Reassessment: d/c instructions given. no c/o. aox4. pt ambulatory. no distress at this zb time. Vital Signs: 14:36 BP 136 / 94; Pulse 92; Resp 18; Temp 99.3(TE); Pulse Ox 97% on R/A; Weight 71.67 kg; tw2 Pain 0/10; 16:00 BP 157 / 97; Pulse 103; Resp 23; Pulse Ox 98% ; bp 17:00 BP 143 / 92; Pulse 89; Resp 24; Pulse Ox 99% ; bp 18:38 BP 149 / 84; Pulse 87; Resp 20 S; Pulse Ox 100% on R/A; ca1 20:57 BP 137 / 108; Pulse 86; Resp 16; Pulse Ox 99% on R/A; zb ED Course: 14:29 Patient arrived in ED. ag3 14:37 Triage completed. tw2 14:38 Arm band placed on. tw2 14:42 Orestes Brown, CYNDEE is PHCP. pm1 14:42 Raz Freire MD is Attending Physician. pm1 14:50 Fredy Terry, RN is Primary Nurse. bp 15:06 Patient has correct armband on for positive identification. Placed in gown. Bed in low mh5 position. Call light in reach. Side rails up X 1. Warm blanket given. court monitor on. Pulse ox on. NIBP on. 15:07 EKG done, by ED staff, reviewed by Orestes Brown NP. mh5 15:10 Missed attempt(s): 20 gauge in right antecubital area. Bleeding controlled, band aid ca1 applied, catheter tip intact. 15:16 XRAY Chest (1 view) In Process Unspecified. EDMS 15:21 Initial lab(s) drawn, by nd, sent to lab. Inserted saline lock: 22 gauge in left ca1 forearm, using aseptic technique. Blood collected. Patient maintains SpO2 saturation greater than 95% on room air. 16:27 CT Abd/Pelvis - IV Contrast Only In Process Unspecified. EDMS 17:32 US Abdomen Limited In Process Unspecified. EDMS 17:48 Urine Dipstick--Ancillary (enter results) Sent. bp 19:33 Primary Nurse role handed off by Fredy Terry, CHIDI sg 20:27 Viviana Stoll, CHIDI is Primary Nurse. zb 20:28 Waldemar Hu MD is Referral Physician. pm1 20:58 No provider procedures requiring assistance completed. IV discontinued, intact, zb bleeding controlled, No redness/swelling at site. Pressure dressing applied. Administered Medications: No medications were administered Outcome: 20:27 Discharge ordered by . pm1 20:59 Discharged to home ambulatory. zb 20:59 Condition: stable 20:59 Discharge instructions given to patient, Instructed on discharge instructions, follow up and referral plans. Demonstrated understanding of instructions, follow-up care. 20:59 Patient left the ED. sharon Signatures: Dispatcher [employer] EDMS Edy Mckeon, RN RN sg Orestes Brown, GIFTS OFFICER GIFTS OFFICER pm1 Amanda Caballero RN RN tw2 Mimi Abel 5 Fredy Terry RN RN bp Irina Holly 3 [place] RN RN ca1 Viviana Stoll RN RN zlaney
[2020-09-11 21:06] VITALS: TEMP 99.3
[2020-09-11 21:12] VITALS: BP 137/108; O2SAT 99
--- NOTE | 2020-09-12 17:33 | EKG ---
Test Date: 2020-09-11 Test Time: 14:59:36 Airline Transport Pilot: MIKEL MEASUREMENT RESULTS: Intervals: Rate: 78 NC: QRSD: 80 QT: 376 QTc: 428 [place]: P: NC: QRS: -5 T: 38 INTERPRETIVE STATEMENTS: Atrial fibrillation Nonspecific ST and T wave abnormality Abnormal ECG Compared to ECG 07/29/2008 17:15:03 ST (T wave) deviation now present Sinus rhythm no longer present Ventricular premature complex(es) no longer present Left ventricular hypertrophy no longer present T-wave abnormality no longer present Electronically Signed On 09-12-20 17:31:45 LOG PEELER by Waldemar Hu
== END 2020-09-11 20:59 | disposition home or self-care (01) ==
LOC: ER 14:27
DX: R07.9 Chest pain, unspecified (principal); Z20.828 Contact with and (suspected) exposure to other viral communicable diseases; G20 Parkinson's disease; Z86.73 Personal history of transient ischemic attack (TIA), and cerebral infarction without residual deficits; Z79.01 Long term (current) use of anticoagulants; Z88.1 Allergy status to other antibiotic agents; Z88.2 Allergy status to sulfonamides; Z88.3 Allergy status to other anti-infective agents
CPT/HCPCS: 93005; 85025; 80048; 36415; 83735; 85610; 80076; 81003; 84484 ×2; 83690; 83880; 74177; 71045; 76705; 99285; Q9967

== ENCOUNTER 2021-09-11 13:54 | Emergency (ER) | payer OTHER, MEDICARE ==
--- OUTSIDE RECORDS SUMMARY | 2021-09-11 13:58 | XMS REPORT | Continuity of Care Document ---
:1945 Author Organization [facility] t Address [address] [place] [address] Care Team Providers Name Role Phone RYLAND WRIGHT Attending Clinician Unavailable Huber BARRIENTOS Attending Clinician Unavailable Greg DORMAN, A Attending Clinician Only, Test Attending Clinician Unavailable Pimentel Attending Clinician 1, Lab Attending Clinician Unavailable GREG, Yvon Admitting Clinician Unavailable Greg DORMAN, A Admitting Clinician Payers Payer Name Policy Type Policy Number Effective Date Expiration Date [facility] [place] A \T\ [id number] 2010-11-05 B 00:00:00 [facility] [id number] 2016-09-07 MEDICARE SUPPLEMENT 00:00:00 Problems Condition Condition Condition Status Onset Resolution Last Treating Co mments Source Name Details Category Date Date Treatment Clinician Date No known No known Disease Unive rs active active ity of problems problems [facility] Allergies, Adverse Reactions, Alerts Allergy Allergy Status Severity Reaction(s) Onset Inactive Treating Comm ents Source Name Type Date Date Clinician BACITRAC DRUG Active Rash 2020-0 Univers IN-POLYM 6-22 ity of YXIN B 00:00: [address] Bacitrac Propensi Active Rash 2020-0 Univer s in-Polym ty to 6- ity of yxin B adverse 00:00: [place] reaction 00 Medical s Branch DOXYCYCL DRUG Active Rash Univers INE INGREDI 05-24 ity of 00:00: [place] 00 Medical Branch LEVOFLOX DRUG Active Unknown-Cmnt Un gabby ACIN INGREDI 05-24 ity of 00:00: [place] 00 Medical Branch Doxycycl Propensi Active Rash Univer s ine ty to 05-24 ity of adverse 00:00: [place] reaction 00 Medical s Branch Levoflox Propensi Active Unknown - Uni vers acin ty to See comments 05-24 ity of adverse 00:00: [place] reaction 00 Medical s Branch SULFA Drug Active Anaphylaxis Unive rs (SULFONA Class 7-18 ity of MIDE 00:00: [place] ANTIBIOT 00 Medical ICS) Branch Sulfa Propensi Active Anaphylaxis Uni vers (Sulfona ty to 7-18 ity of mide adverse 00:00: [place] Antibiot reaction 00 Medica l ics) s Branch Keflex Adverse Active rash [facility] Social History Social Habit Start Date Stop Date Quantity Comments Source [facility] History [facility] Alcohol Binge Medical Bra [facility] Exposure to Not sure [facility] SARS-CoV-2 (event) Medica l Branch Alcohol intake 2020-02-27 2020-02-27 [facility] 00:00:00 00:00:00 Medical Branch History [facility] 2019-05-24 2019-05-24 5 [facility] Alcohol Frequency 00:00:00 00:00:00 Medical Branch History [facility] 2019-05-24 2019-05-24 1 [facility] Alcohol Std Drinks 00:00:00 00:00:00 Medica l Branch Smoking Status Start Date Stop Date Source Former smoker 2020-02-27 00:00:00 2020-02-27 00:00:00 [facility] Medical Branch Medications Ordered Filled Start Stop Current Ordering Indication Dosage Frequency Signature Comments Components Source Medication Medication Date Date Medication? Clinician (SIG) Name Name acetaminoph Yes 1{tbl} Take 1 Un gabby en-codeine 6-24 tablet by ity of (TYLENOL 18:23: mouth [place] #3) 300-30 35 every 4 Medica l mg tablet (four) Branch hours as needed. rivaroxaban 2020-0 Yes 10mg Take 10 mg Univers tablet 6-24 by mouth ity of 18:23: daily. [address] carbidopa-l 2020-0 Yes 1{tbl} Take 1 Un gabby evodopa 6-24 tablet by ity of 25-100 mg 18:23: mouth 2 [place] tablet 35 (two) Medical times [place] daily. omeprazole 2020-0 Yes 20mg Take 20 mg U nivers 20 mg 6-24 by mouth ity of capsule 18:23: daily. [address] lactated 2020-0 Yes 1000mL at 75 Univer s ringers IV 6-24 mL/hr, ity of infusion 16:45: 1,000 [place], [place] 1[place]000 [place] 00 IV Medical Infusion, Branch CONTINUOUS , Starting Thu02/29/20 at 1145, Until Discontinu ed, Routine, PACU rivaroxaban 2020-0 2020- No 15mg Take 15 mg Univers (XARELTO) 6-24 06-24 by mouth ity o f tablet 16:31: 00:00 daily. [place] 47 :00 [facility] neomycin-po 2020-0 Yes PRN, Univer s lymyxin-dex 6-24 Starting ity of amethasone 16:13: Thu [place] (MAXITROL) 02/29/20 at [facility] 3.5 1113, [place] mg/g-10,000 Until unit/g-0.1 Discontinu % ed, ophthalmic Routine, ointment Intra-op sodium 2020-0 Yes PRN, Univers chloride 6-24 Starting ity of (NS) 16:12: Thu [place] injection 02/29/20 at [facility] 1112, Branch Until Discontinu ed, Routine, Intra-op gentamicin 2020-0 Yes PRN, Univers injection -24 Starting ity of 16:12: Thu [place] 00 02/29/20 at [place] [id number], Branch Until Discontinu ed, ALE, Intra-op dexamethaso 2020-0 Yes PRN, Univer s ne 6-24 Starting ity of (DECADRON 16:12: Thu [place] PHOSPHATE) 02/29/20 at [facility] ical injection 1112, Branch Until Discontinu ed, Routine, Intra-op ceFAZolin 2020-0 Yes PRN, Univers (ANCEF) 6-24 Starting ity of injection 16:12: Thu [place] 00 02/29/20 at Medical 1112, Branch Until Discontinu ed, ALE, Intra-op DUOVISC 2020-0 Yes PRN, Univers (DUOVISC 02-28 Starting ity of VISCO 16:08: Thu ELASTIC) 3 02/29/20 at [facility] ical %-4 %(0.5 1108, Branch mL) 1 % Until (0.55 mL) Discontinu intraocular ed, injection Routine, Intra-op carbachoL 2020-0 Yes PRN, Univers (MIOSTAT) 02-28 Starting ity of 0.01 % 16:08: Thu intraocular 00 02/29/20 at [place] dical injection 1108, Branch Until Discontinu ed, Routine, Intra-op EPINEPHrine 2020-0 Yes PRN, Univer s 1:1,000 (1 02-28 Starting ity o f mg/mL) 16:02: Thu (ADRENALIN) 02/29/20 at [place] dical injection 1102, Branch Until Discontinu ed, Routine, Intra-op balanced 2020-0 Yes PRN, Univers salt irrig 02-28 Starting ity o f soln comb1 16:01: Thu (BSS PLUS) 02/29/20 at [facility] ical ophthalmic 1101, Branch solution Until 500 mL bag Discontinu ed, Routine, Intra-op water for 2019-0 Yes PRN, Univers irrigation 02-28 Starting ity o f irrigation 15:55: Thu [place] solution 02/29/20 at Medic al 1055, Branch Until Discontinu ed, Routine, Intra-op Hyaluronida 2020-0 Yes PRN, Univer s se, Human 02-28 Starting ity of Recomb. 15:50: Thu (HYLENEX) 02/29/20 at [facility] kami injection 1050, Branch Until Discontinu ed, Routine, Intra-op eye block 2020-0 Yes PRN, Univers syringe 11 02-28 Starting ity o f mL 15:50: Thu02/29/20 at [facility] 1050, Branch Until Discontinu ed, Intra-op lactated 2020-0 2020- No 1000mL at [address] [place] [address] rs ringers IV 24 06-24 mL/hr, ity of infusion 14:00: 14:23 1,000 mL, [place] as 1,000 mL 00 :00 IV Medical Infusion, Branch ONCE, 1 dose, 02/29/20 at 0900, Routine, DSU Pre-op mydriatic 2020-0 2020- No .5mL 0.5 mL, Univ ers #5 02-28 Left Eye, ity of ophthalmic 14:00: 14:24 ONCE, 1 [place] as solution 00 :00 dose, Thu Medica l 0.5 mL 02/29/20 at Branch syringe 0900, Routine acetaminoph 2020-0 Yes 1{tbl} Take 1 Un gabby en-codeine 6-22 tablet by ity of (TYLENOL 15:01: mouth [place] #3) 300-30 28 every 4 Medica l mg tablet (four) Branch hours as needed. rivaroxaban 2020-0 Yes 10mg Take 10 mg Univers tablet 6-22 by mouth ity of 15:01: daily. [address] carbidopa-l 2020-0 Yes 1{tbl} Take 1 Un gabby evodopa 6-22 tablet by ity of 25-100 mg 15:01: mouth 2 [place] tablet 28 (two) Medical times Branch daily. omeprazole 2020-0 Yes 20mg Take 20 mg U nivers 20 mg 6-22 by mouth ity of capsule 15:01: daily. [address] rivaroxaban 2020-0 Yes 15mg Take 15 mg Univers (XARELTO) 6-22 by mouth ity of tablet 15:01: daily. [address] acetaminoph 2020-0 Yes 1{tbl} Take 1 Un gabby en-codeine 6-22 tablet by ity of (TYLENOL 15:01: mouth [place] #3) 300-30 28 every 4 Medica l mg tablet (four) Branch hours as needed. rivaroxaban 2020-0 Yes 10mg Take 10 mg Univers tablet 6-22 by mouth ity of 15:01: daily. [address] carbidopa-l 2020-0 Yes 1{tbl} Take 1 Un gabby evodopa 6-22 tablet by ity of 25-100 mg 15:01: mouth 2 [place] tablet 28 (two) Medical times Branch daily. omeprazole 2020-0 Yes 20mg Take 20 mg U nivers 20 mg 6-22 by mouth ity of capsule 15:01: daily. [address] rivaroxaban 2020-0 Yes 15mg Take 15 mg Univers (XARELTO) 6-22 by mouth ity of tablet 15:01: daily. [address] acetaminoph 2020-0 Yes 1{tbl} Take 1 Un gabby en-codeine 1-10 tablet by ity of (TYLENOL 17:15: mouth [place] #3) 300-30 13 every 4 Medica l mg tablet (four) Branch hours as needed. rivaroxaban 2019-0 Yes 10mg Take 10 mg Univers tablet 1-10 by mouth ity of 17:15: daily. [place] [address] [facility] carbidopa-l 2020-0 Yes 1{tbl} Take 1 Un gabby evodopa 1-10 tablet by ity of 25-100 mg 17:15: mouth 2 [place] tablet 13 (two) Medical times Branch daily. omeprazole 2019-0 Yes 20mg Take 20 mg U nivers 20 mg 1-10 by mouth ity of capsule 17:15: daily. [address] rivaroxaban 2020-0 Yes 15mg Take 15 mg Univers (XARELTO) 1-10 by mouth ity of tablet 17:15: daily. [address] Tylenol # 3 Tylenol # 3 2019-0 Yes Ryland one tab [facility] pentazocine 2015-0 Yes 1{tbl} Take 1 Un gabby -naloxone 7-20 tablet by ity o f (TALWIN NX) 00:00: mouth [place] 50-0.5 mg 00 every 4 Medical tablet (four) Branch hours as needed for Pain. pentazocine 2015- Yes 1{tbl} Take 1 Un gabby -naloxone 7-20 tablet by ity o f (TALWIN NX) 00:00: mouth [place] 50-0.5 mg 00 every 4 Medical tablet (four) Branch hours as needed for Pain. pentazocine 2015-0 Yes 1{tbl} Take 1 Un gabby -naloxone 7-20 tablet by ity o f (TALWIN NX) 00:00: mouth [place] 50-0.5 mg 00 every 4 Medical tablet (four) Branch hours as needed for Pain. pentazocine 2015- Yes 1{tbl} Take 1 Un gabby -naloxone 7-20 tablet by ity o f (TALWIN NX) 00:00: mouth [place] 50-0.5 mg 00 every 4 Medical tablet (four) Branch hours as needed for Pain. pentazocine Yes 1{tbl} Take 1 Un gabby -naloxone 7-20 tablet by ity o f (TALWIN NX) 00:00: mouth [place] 50-0.5 mg 00 every 4 Medical tablet (four) Branch hours as needed for Pain. acetaminoph Yes 1{tbl} Take 1 Un gabby en-codeine 7-18 tablet by ity of (TYLENOL 19:54: mouth [place] #3) 300-30 18 every 4 Medica l mg tablet (four) Branch hours as needed. XARELTO 15 Yes TK 1 T PO U nivers mg tablet 7-10 D ity of 00:00: [place] 00 Medical Branch XARELTO 15 Yes TK 1 T PO U nivers mg tablet 7-10 D ity of 00:00: [place] 00 Medical Branch XARELTO 15 Yes TK 1 T PO U nivers mg tablet 7-10 D ity of 00:00: [place] 00 Medical Branch XARELTO 15 Yes TK 1 T PO U nivers mg tablet 7-10 D ity of 00:00: [place] 00 Medical Branch XARELTO 15 Yes TK 1 T PO U nivers mg tablet 7-10 D ity of 00:00: [place] 00 Medical Branch levofloxaci Yes TK 1 T PO U nivers n 5-05 D. ity of (LEVAQUIN) 00:00: [place] 500 mg 00 Medical tablet Branch levofloxaci 0 Yes TK 1 T PO U nivers n 5-05 D. ity of (LEVAQUIN) 00:00: [place] 500 mg 00 Medical tablet Branch levofloxaci 0 Yes TK 1 T PO U nivers n 5-05 D. ity of (LEVAQUIN) 00:00: [place] 500 mg 00 Medical tablet Branch levofloxaci 0 Yes TK 1 T PO U nivers n 5-05 D. ity of (LEVAQUIN) 00:00: [place] 500 mg 00 Medical tablet Branch levofloxaci Yes TK 1 T PO U nivers n 5-05 D. ity of (LEVAQUIN) 00:00: [place] 500 mg 00 Medical tablet Branch Xarelto Xarelto Yes Ryland not [facility] Carbidopa-L Carbidopa-L Yes Ryland not [facility] evodopa evodopa [place] defined [facility] Omeprazole Omeprazole Yes Ryland not [facility] Vital Signs Vital Name Observation Time Observation Value Comments Source Heart rate 2020-02-29 16:35:00 91 /min [facility] [place] [facility] [place] Respiratory rate 2020-02-29 16:35:00 20 /min [facility] [place] [facility] Branch Oxygen saturation in 2020-02-29 16:35:00 99 /min University of Arterial blood by [facility] Pulse oximetry Branch Systolic blood 2020-02-29 14:20:00 124 mm[Hg] Univer sity of pressure [facility] Branch Diastolic blood 2020-02-29 14:20:00 59 mm[Hg] Unive rsity of pressure [facility] Body temperature 2020-02-29 14:20:00 36.06 Emma Univ [facility] [place] [facility] [place] Body height 2020-02-27 14:45:00 160 cm [facility] [place] [facility] Body weight 2020-02-27 14:45:00 72.576 kg [facility] [place] [facility] BMI 2020-02-27 14:45:00 28.34 kg/m2 Universi ty of [facility] Heart rate 2020-02-29 16:35:00 91 /min [facility] [place] [facility] Respiratory rate 2020-02-29 16:35:00 20 /min Univ ersity of [facility] Branch Oxygen saturation in 2020-02-29 16:35:00 99 /min University of Arterial blood by [facility] Pulse oximetry Branch Systolic blood 2020-02-29 14:20:00 124 mm[Hg] Univer sity of pressure [place] [facility] Diastolic blood 2020-02-29 14:20:00 59 mm[Hg] Unive rsity of pressure [facility] Body temperature 2020-02-29 14:20:00 36.06 Emma [facility] [place] [facility] Body height 2020-02-27 14:45:00 160 cm [facility] [place] [facility] [place] Body weight 2020-02-27 14:45:00 72.576 kg [facility] [place] [facility] BMI 2020-02-27 14:45:00 28.34 kg/m2 [facility] Medical [place] Procedures Procedure Date / Time Performed Performing Clinician [place] e COVID-19 (ID NOW 2020-02-28 15:38:00 Ryland Wright [facility] RAPID TESTING) [facility] Encounters Start End Encounter Admission Attending Care Care Encounter Source Date/Time Date/Time Type Type Clinicians Facility Department ID 2021-07-05 Outpatient Yuli [facility] VÍCTOR [id number] Univers 00:26:55 RYLAND [facility] 2021-09-02 2021-09-02 ambulatory [facility] [id number] [facility]00 [facility] 2020-11-19 2020-11-19 [facility] [id number] Univers 14:00:00 14:00:00 BRIAN [id number] [facility] 2020-11-19 2020-11-19 [facility] [id number] Univers 14:00:00 14:00:00 BRIAN [facility] 2020-10-29 2020-10-29 Outpatient [facility] [id number] Univers 14:40:00 14:40:00 [id number] [facility] 2020-10-29 2020-10-29 [facility] [id number] Univers 14:40:00 14:40:00 BRIAN [facility] 2020-02-29 2020-02-29 [facility] [id number] Univers 08:41:00 11:46:00 Encounter R[place] [id number] [id number] Med ical [address] 2020-02-29 2020-02-29 [facility] [id number] 08:41:00 11:46:00 Encounter Ryland Box [id number] [place] [id number] Surgical [id number] [place] [id number] 2020-02-28 2020-02-28 Outpatient R [facility] [id number] Univers 13:00:00 13:00:00 [id number] ity [facility] 2020-02-28 2020-02-28 Laboratory Only, Adc Test [facility] [id number] Univers 10:06:51 10:21:51 Only Ryland Wright [id number] 0 ity of [place] [id number] [facility] [id number] [address] 2020-02-28 2020-02-28 Laboratory Only, [facility] [id number] 10:06:51 10:21:51 Only Test Ivel [id number] [place] [id number] [place] [id number] [facility] 2020-02-28 2020-02-28 Outpatient R GREG [facility] [id number] Univers 10:00:00 10:00:00 RYLAND itlauren [facility] 2020-02-28 2020-02-28 Telephone ROSEANN Pimentel [id number] [facility] 00:00:00 00:00:00 Sneha-Jens CHENG [id number] ity of [facility] [id number] [place] [id number] [address] 2020-02-28 2020-02-28 Telephone ROSEANN Pimentel [id number] 00:00:00 00:00:00 Sneha-Jens CHENG [id number] [facility] [id number] 2020-02-24 2020-02-24 Golf Instructor 1, [facility] [id number] Univers 15:00:04 15:15:04 Visit Ryland Wright Ivel [id number] 0 ity of [place] [id number] [facility] [id number] [address] 2020-02-24 2020-02-24 Golf Instructor 1, [facility] [id number] 15:00:04 15:15:04 Visit Ivel [id number] [place] [id number] [place] [id number] [facility] 2020-02-24 2020-02-24 Outpatient R [facility] [id number] Univers 15:00:00 15:00:00 [id number] [facility] 2020-02-24 2020-02-24 Outpatient R GREG [facility] [id number] Univers 15:00:00 15:00:00 RYLAND [facility] 2019-05-16 2019-05-16 Golf Instructor 1, Adc Lab [facility] [id number] [facility] 12:51:29 13:06:29 Visit Ryland Wright Isauro [id number] 0 [facility] [id number] [facility] [id number] [address] 2019-05-16 2019-05-16 Golf Instructor 1, Adc Lab [facility] [id number] 12:51:29 13:06:29 Visit Isauro [id number] [place] [id number] [place] [id number] [facility] 2019-01-17 2019-01-17 [facility] [id number] 11:00:00 11:00:00 [facility] ent Clinics 2018-12-31 2018-12-31 [facility] [id number] 09:30:00 09:30:00 t [facility] ent Clinics 2018-12-23 2018-12-23 [facility] [id number] 14:30:00 14:30:00 t [facility] ent Clinics 2018-12-20 2018-12-20 [facility] [id number] 10:18:00 10:18:00 t [facility] ent Clinics 2018-12-20 2018-12-20 [facility] [id number] 10:17:00 10:17:00 t [facility] ent Clinics 2018-12-20 2018-12-20 Outpatient Augie Ghosht [id number] 09:30:00 09:30:00 t [facility] ent [facility] 2018-12-13 2018-12-13 Outpatient Augie Ghosht [id number] 09:00:00 09:00:00 t [facility] ent [facility] 2018-12-01 2018-12-01 Outpatient Augie Ghosht [id number] 10:00:00 10:00:00 t [facility] ent [facility] 2018-11-08 2018-11-08 Outpatient Augie Ghosht [id number] 14:30:00 14:30:00 t [facility] ent [facility] 2018-11-05 2018-11-05 Outpatient Augie Ghosht [id number] 10:15:00 10:15:00 t [facility] ent [facility] Results Test Description Test Time Test Comments Results Result Comments Source COVID-19 (ID NOW RAPID TESTING) 2020-02-28 16:17:00 Test Item Value Reference Range Interpretation Comme nts SARS-CoV-2 Rapid ID NOW (test code Not Detected Not Detected = 38083-3) LIZETH (test code = LIZETH) ID NOW COVID-19 Assay is an isothermal nucleic acid amplification test intended for the qualitative detection of nucleic acid from SARS-CoV-2 viral RNA in nasopharyngeal (RESEARCH COMPLIANCE SPECIALIST) specimens. It is used under Emergency Use Authorization (EUA) by FDA. The limit of detection (LOD) of the assay is 125 Genome Equivalents/mL. A positive result is indicative of the presence of SARS-CoV-2 RNA. ?Clinical correlation with patient history and other diagnostic information is necessary to determine patient infection status. A negative (Not Detected) result does not preclude SARS-CoV-2 infection. In patients with clinical symptoms and other tests that are consistent with SARS-CoV-2 infection, negative results should be treated as presumptive negative and a new specimen should be tested with alternative PCR molecular test. Invalid: Please collect a new specimen for repeat patient testing if clinically indicated. Lab Interpretation (test code = Normal 40787-0) [facility]
--- NOTE | 2021-09-11 14:59 | RAD REPORT ---
EXAM DESCRIPTION: CT - Head Brain Wo Cont - 09/11/2021 2:34 pm CLINICAL HISTORY: Dizziness COMPARISON: 2016 TECHNIQUE: Computed axial tomography of the head was obtained. IV contrast was not requested. All CT scans are performed using dose optimization technique as appropriate and may include automated exposure control or mA/KV adjustment according to patient size. FINDINGS: An intracranial bleed is not seen . The ventricles are normal in caliber. No extra-axial fluid collection is noted. 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 Cerebral atrophy. Old right cerebellar infarct Fluid within the sinuses/ mastoids is not seen. IMPRESSION: No acute intracranial abnormality is seen. If patient's symptoms persist MRI of the bra in would be recommended.
[2021-09-11] MEDS ORDERED: ONDANSETRON 4 MG (ODT) TAB ONE (15:14)
[2021-09-11] MEDS ORDERED: MECLIZINE HCL 12.5 MG TAB ONE (15:14)
--- NOTE | 2021-09-11 15:45 | ER ---
Nurse's Notes [facility] Name: Ning Coffey Age: 75 yrs Sex: Female : 1945 Arrival Date: 09/11/2021 Time: 13:56 Bed 16 Private MD: Diagnosis: Unspecified injury of head, initial encounter;Concussion without loss of consciousness;Postconcussional syndrome Presentation: 09/11 14:19 Chief complaint: Patient states: Yesterday a chair fell out from under me and I fell ld1 and hit my head. I am nauseous and having vertigo. Pt reports taking xarelto, denies LOC. Coronavirus screen: At this time, the client does not indicate any symptoms associated with coronavirus-19. Ebola Screen: No symptoms or risks identified at this time. Initial Sepsis Screen: Does the patient meet any 2 criteria? No. Patient's initial sepsis screen is negative. Does the patient have a suspected source of infection? No. Patient's initial sepsis screen is negative. Risk Assessment: Do you want to hurt yourself or someone else? Patient reports no desire to harm self or others. Onset of symptoms was September 11, 2021. 14:19 Method Of Arrival: Wheelchair ld1 14:19 Acuity: DANIELLE 3 ld1 Triage Assessment: 14:24 General: Appears in no apparent distress. comfortable, Behavior is calm, cooperative, ld1 appropriate for age. Pain: Denies pain. Neuro: Level of Consciousness is awake, alert, obeys commands, Oriented to person, place, time, situation. Respiratory: Airway is patent Respiratory effort is even, unlabored. 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 - Social history:: Smoking status: Patient denies any tobacco usage or history of. Patient/guardian denies using alcohol. - Family history:: not pertinent. - Hospitalizations: : No recent hospitalization is reported. Screenin:50 Abuse screen: Denies threats or abuse. Nutritional screening: No deficits noted. jh6 Tuberculosis screening: No symptoms or risk factors identified. Fall Risk Fall in past 12 months (25 points). Primary Survey: 14:51 NO uncontrolled hemorrhage observed. Breathing/Chest: Respiratory pattern:. jh6 Circulation: Cardiac rhythm: sinus rhythm. Assessment: 14:48 General: Appears in no apparent distress. comfortable, Behavior is calm, cooperative. jh6 Pain: Complains of pain in scalp Pain currently is 5 out of 10 on a pain scale. Quality of pain is described as throbbing, Pain began suddenly, Is continuous. Neuro: Reports dizziness. Cardiovascular: No deficits noted. Respiratory: No deficits noted. GI: Reports nausea. 16:15 Reassessment: Patient and/or family updated on plan of care and expected duration. Pain jh6 level reassessed. Patient states feeling better. Pain: Denies pain. 16:21 General: pt able to ambulate with little assistance. states that the nausea is not as jh6 bad as it was. . Vital Signs: 14:19 BP 144 / 90; Pulse 77; Resp 18; Temp 97.8(O); Pulse Ox 100% on R/A; Weight 71.21 kg; ld1 Height 5 ft. 3 in. (160.02 cm); Pain 0/10; 14:49 BP 150 / 91; Pulse 76; Resp 18; Pulse Ox 100% ; Pain 5/10; jh6 16:00 BP 160 / 0; jh6 16:10 BP 147 / 88; Pulse 77; Resp 18; Pulse Ox 100% ; Pain 0/10; jh6 14:19 Body Mass Index 27.81 (71.21 kg, 160.02 cm) ld1 Vitals: 14:49 Cardiac Rhythm Assessment Regular. jh6 Odonnell Coma Score: 14:45 Eye Response: spontaneous(4). Verbal Response: oriented(5). Motor Response: obeys jh6 commands(6). Total: 15. 15:18 Eye Response: spontaneous(4). Verbal Response: oriented(5). Motor Response: obeys rn commands(6). Total: 15. 15:44 Eye Response: spontaneous(4). Verbal Response: oriented(5). Motor Response: obeys rn commands(6). Total: 15. ED Course: 13:56 Patient arrived in ED. mr 14:22 Triage completed. ld1 14:24 Arm band placed on left wrist. ld1 14:34 CT Head Brain wo Cont In Process Unspecified. EDME 14:48 Chery Wetzel, RN is Primary Nurse. 6 14:50 No apparent distress. jh6 14:50 No provider procedures requiring assistance completed. jh6 14:51 Bed in low position. Call light in reach. Side rails up X 1. 6 14:54 Shlomo Harvey MD is Attending Physician. rn Administered Medications: 15:16 Drug: Meclizine 50 mg Route: PO; [facility] 16:00 Follow up: Response: No adverse reaction [facility] 15:16 Drug: Ondansetron 4 mg Route: PO; [facility] 16:00 Follow up: BP 160 / 0; Response: Nausea is decreased [facility] Outcome: 15:44 Discharge ordered by . rn 16:22 Discharged to home ambulatory. [facility] 16:22 Condition: improved 16:22 Discharge instructions given to patient, Instructed on discharge instructions, follow up and referral plans. Demonstrated understanding of instructions, follow-up care, medications, Prescriptions given X 2. 16:23 Patient left the ED. [facility] Signatures: Dispatcher [employer] EDME Sofia Toribio mr Shlomo Harvey MD MD rn Dibbern, Lauren, RN RN ld1 Chery Wetzel, RN RN 6
--- NOTE | 2021-09-11 15:45 | EDPHYS ---
Physician Documentation [facility] Name: Ning Coffey Age: 75 yrs Sex: Female : 1945 Arrival Date: 09/11/2021 Time: 13:56 Bed 16 Private MD: ED Physician Shlomo Harvey HPI: 09/11 15:18 This 75 yrs old Female presents to ER via Wheelchair with complaints of Fall Injury. rn 15:18 This 75 yrs old Female presents to ER via Wheelchair with complaints of Head injury. rn 15:18 The patient or guardian reports injury. The complaints affect the left frontal area and rn left temporal area. Context of injury: The problem was sustained at home, resulted from a fall. Onset: The symptoms/episode began/occurred yesterday. Associated signs and symptoms: Loss of consciousness: This patient did not experience any loss of consciousness. Pertinent positives: Dizziness, Pertinent negatives: double vision, incontinence, neck pain, seizure, shortness of breath. Severity of symptoms: At their worst the symptoms were mild, in the emergency department the symptoms are unchanged. The patient has not experienced similar symptoms in the past. The patient has not recently seen a physician. Patient reports was sitting on a rolling chair that gave way yesterday at about 5:30 PM, fell to ground and hit the left temporoparietal region of head. No LOC. Thinks hit head either on floor or safe door. Patient takes anticoagulation and wanted to make sure that she was okay. Reports nausea and dizziness that is worse when bends over or turns head to the left. Denies focal neurological complaint.. 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 - Social history:: Smoking status: Patient denies any tobacco usage or history of. Patient/guardian denies using alcohol. - Family history:: not pertinent. - Hospitalizations: : No recent hospitalization is reported. ROS: 15:18 Constitutional: Negative for fever, chills, and weight loss, Eyes: Negative for injury, rn pain, redness, and discharge, Neck: Negative for injury, pain, and swelling, Cardiovascular: Negative for chest pain, palpitations, and edema, Respiratory: Negative for shortness of breath, cough, wheezing, and pleuritic chest pain, Abdomen/GI: Negative for abdominal pain, diarrhea, and constipation, Back: Negative for injury and pain, MS/Extremity: Negative for injury and deformity, Skin: Negative for injury, rash, and discoloration, Neuro: Negative for weakness, numbness, tingling, and seizure. Exam: 15:18 Constitutional: This is a well developed, well nourished patient who is awake, alert, rn and in no acute distress. Head/Face: Normocephalic, small contusion to the left parietal scalp without depression or hematoma Eyes: Periorbital areas with no swelling, redness, or edema. Neck: No cervical tenderness Cardiovascular: Regular rate and rhythm. No pulse deficits. Respiratory: No increased work of breathing, no retractions or nasal flaring. Skin: Warm, dry with normal turgor. Normal color with no rashes, no lesions, and no evidence of cellulitis. MS/ Extremity: Pulses equal, no cyanosis. Neurovascular intact. Full, normal range of motion. Equal circumference. Neuro: Awake and alert, GCS 15, oriented to person, place, time, and situation. Cranial nerves II-XII grossly intact. Motor strength 5/5 in all extremities. Sensory grossly intact. Cerebellar exam normal. Vital Signs: 14:19 BP 144 / 90; Pulse 77; Resp 18; Temp 97.8(O); Pulse Ox 100% on R/A; Weight 71.21 kg; ld1 Height 5 ft. 3 in. (160.02 cm); Pain 0/10; 14:49 BP 150 / 91; Pulse 76; Resp 18; Pulse Ox 100% ; Pain 5/10; jh6 16:00 BP 160 / 0; jh6 16:10 BP 147 / 88; Pulse 77; Resp 18; Pulse Ox 100% ; Pain 0/10; jh6 14:19 Body Mass Index 27.81 (71.21 kg, 160.02 cm) ld1 Tim Coma Score: 14:45 Eye Response: spontaneous(4). Verbal Response: oriented(5). Motor Response: obeys jh6 commands(6). Total: 15. 15:18 Eye Response: spontaneous(4). Verbal Response: oriented(5). Motor Response: obeys rn commands(6). Total: 15. 15:44 Eye Response: spontaneous(4). Verbal Response: oriented(5). Motor Response: obeys rn commands(6). Total: 15. MDM: 14:54 Patient medically screened. rn 15:44 Differential diagnosis: Contusion of Hematoma on Intracranial bleed- Concussion rn cerebral contusion. Data reviewed: vital signs, nurses notes, radiologic studies, CT scan, and as a result, I will discharge patient. Counseling: I had a detailed discussion with the patient and/or guardian regarding: the historical points, exam findings, and any diagnostic results supporting the discharge/admit diagnosis, radiology results, the need for outpatient follow up, to return to the emergency department if symptoms worsen or persist or if there are any questions or concerns that arise at home. Response to treatment: the patient's symptoms have mildly improved after treatment, and as a result, I will discharge patient. Special discussion: Based on the patient's history, exam and DX evaluation, there is no indication for emergent intervention or inpatient TX. It is understood by the patient/guardian that if the SXs persist or worsen they need to return immediately for re-evaluation. I discussed with the patient/guardian in detail that at this point there is no indication for admission to the hospital. It is understood, however, that if the symptoms persist or worsen the patient needs to return immediately for re-evaluation. 09/11 14:24 Order name: CT Head Brain wo Cont; Complete Time: 15:03 ld1 Administered Medications: 15:16 Drug: Meclizine 50 mg Route: PO; [facility] 16:00 Follow up: Response: No adverse reaction [facility] 15:16 Drug: Ondansetron 4 mg Route: PO; [facility] 16:00 Follow up: BP 160 / 0; Response: Nausea is decreased [facility] Disposition Summary: 09/11/21 15:44 Discharge Ordered Location: Home rn Problem: new rn Symptoms: have improved rn Condition: Stable rn Diagnosis - Unspecified injury of head, initial encounter rn - Concussion without loss of consciousness rn - Postconcussional syndrome rn Followup: rn - With: Private Physician - When: As needed - Reason: Recheck today's complaints, Re-evaluation by your physician Discharge Instructions: - Discharge Summary Sheet rn - Head Injury, Adult rn - Post-Concussion Syndrome rn Forms: - Medication Reconciliation Form rn - Thank You Letter rn - Antibiotic rn pediatric icu - Prescription Opioid Use rn Prescriptions: - ondansetron 4 mg Oral tablet,disintegrating - take 1 tablet by ORAL route every 8 hours As needed; 15 tablet; Refills: 0, rn Product Selection Permitted - Meclizine 25 mg Oral Tablet - take 1 tablet by ORAL route every 8 hours As needed; 20 tablet; Refills: 0, rn Product Selection Permitted Signatures: Dispatcher [employer] EDShlomo Vilalseñor MD MD rn Dibbern, Lauren RN RN ld1 Chery Wetzel RN RN jh6
[2021-09-11 16:28] VITALS: TEMP 97.8; O2SAT 100
[2021-09-11 16:32] VITALS: BP 147/88
== END 2021-09-11 16:23 | disposition home or self-care (01) ==
LOC: ER 13:54
DX: S06.0X0A Concussion without loss of consciousness, initial encounter (principal); W07.XXXA Fall from chair, initial encounter; Y93.9 Activity, unspecified; Y92.9 Unspecified place or not applicable; Z88.6 Allergy status to analgesic agent; Z88.2 Allergy status to sulfonamides
CPT/HCPCS: 70450; 99283; J8597

== ENCOUNTER 2021-10-11 17:26 | Emergency (ER) | payer OTHER, MEDICARE ==
--- OUTSIDE RECORDS SUMMARY | 2021-10-11 17:29 | XMS REPORT | Continuity of Care Document ---
:1945 Author Organization [facility] t Address [address] [place] [address] Care Team Providers Name Role Phone GANGA HARDWICK Attending Clinician Unavailable GREG, A Attending Clinician Unavailable Huber BARRIENTOS Attending Clinician Unavailable Greg DORMAN, A Attending Clinician Only, Test Attending Clinician Unavailable Pimenetl Attending Clinician 1, Lab Attending Clinician Unavailable GREG, A Admitting Clinician Unavailable Greg DORMAN, A Admitting Clinician Payers Payer Name Policy Type Policy Number Effective Date Expiration Date S [facility] MEDICARE PART A \T\ [id number] 2010 B 00:00:00 [facility] [id number] 2016 MEDICARE SUPPLEMENT 00:00:00 Problems Condition Condition Condition Status Onset Resolution Last Treating Co mments Source Name Details Category Date Date Treatment Clinician Date No known No known Disease Unive rs active active ity of problems problems [facility] Allergies, Adverse Reactions, Alerts Allergy Allergy Status Severity Reaction(s) Onset Inactive Treating Comm ents Source Name Type Date Date Clinician BACITRAC DRUG Active Rash 2020-0 Univers IN-POLYM 6- ity of YXIN B 00:00: [address] Bacitrac Propensi Active Rash 2020-0 Univer s in-Polym ty to 02-26 ity of yxin B adverse 00:00: [place] [...] Date Quantity Comments Source Sex Assigned At [facility] Medical Branch History [facility] Alcohol Binge Medical [facility] Exposure to Not sure [facility] SARS-CoV-2 (event) Medica l Branch Alcohol intake 2020-02-27 2020-02-27 [facility] 00:00:00 00:00:00 Medical Branch History [facility] 2019-05-24 2019-05-24 5 [facility] Alcohol Frequency 00:00:00 00:00:00 Medical Branch History [facility] 2019-05-24 2019-05-24 1 [place] o [facility] Alcohol Std Drinks 00:00:00 00:00:00 Medica l Branch Smoking Status Start Date Stop Date Source Former smoker 2020-02-27 00:00:00 2020-02-27 00:00:00 [facility] Medical Branch Medications Ordered Filled Start Stop Current Ordering Indication Dosage Frequency Signature Comments Components Source Medication Medication Date Date Medication? Clinician (SIG) Name Name acetaminoph Yes 1{tbl} Take 1 Un gabby en-codeine 6-24 tablet by ity of (TYLENOL 18:23: mouth [place] #3) 300-30 35 every 4 Medica l mg tablet (four) Branch hours as needed. rivaroxaban 2020-0 Yes 10mg Take 10 mg Univers tablet 6-24 by mouth ity of 18:23: daily. [address] carbidopa-l 2020-0 Yes 1{tbl} Take 1 Un gabby evodopa 6-24 tablet by ity of 25-100 mg 18:23: mouth 2 [place] tablet 35 (two) Medical times Branch daily. omeprazole 2020-0 Yes 20mg Take 20 mg U nivers 20 mg 6-24 by mouth ity of capsule 18:23: daily. [address] lactated 2020-0 Yes 1000mL at 75 Univer s ringers IV 6-24 mL/hr, ity of infusion 16:45: 1,000 [place] 1[place]000 [place] 00 IV Medical Infusion, Branch CONTINUOUS , Starting Thu02/29/20 at 1145, Until Discontinu ed, Routine, PACU rivaroxaban 2020-0 2020- No 15mg Take 15 mg Univers (XARELTO) 6-24 06-24 by mouth ity o f tablet 16:31: 00:00 daily. [place] 47 :[address] [facility] neomycin-po 2020-0 Yes PRN, Univer s lymyxin-dex 6-24 Starting ity of amethasone 16:13: Thu [place] (MAXITROL) 02/29/20 at [facility] ica 3.5 1113, Branch mg/g-10,000 Until unit/g-0.1 Discontinu % ed, ophthalmic Routine, ointment Intra-op sodium 2020-0 Yes PRN, Univers chloride 6-24 Starting ity of (NS) 16:12: Thu [place] injection 02/29/20 at [facility] 1112, Branch Until Discontinu ed, Routine, Intra-op gentamicin 2020-0 Yes PRN, Univers injection 6-24 Starting ity of 16:12: Thu [place] 00 02/29/20 at [place] [id number], Branch Until Discontinu ed, ALE, Intra-op dexamethaso 2020-0 Yes PRN, Univer s ne 6-24 Starting ity of (DECADRON 16:12: Thu [place] PHOSPHATE) 02/29/20 at [facility] ical injection 1112, Branch Until Discontinu ed, Routine, Intra-op ceFAZolin 2020-0 Yes PRN, Univers (ANCEF) 6-24 Starting ity of injection 16:12: Thu [place] 02/29/20 at Medical 1112, Branch Until Discontinu ed, ALE, Intra-op DUOVISC 2020-0 Yes PRN, Univers (DUOVISC 02-28 Starting ity of VISCO 16:08: Thu ELASTIC) 3 02/29/20 at [facility] ical %-4 %(0.5 1108, Branch mL) 1 % Until (0.55 mL) Discontinu intraocular ed, injection Routine, Intra-op carbachoL 2020-0 Yes PRN, Univers (MIOSTAT) 02-28 Starting ity of 0.01 % 16:08: Thu [place] intraocular 00 02/29/20 at [place] dical injection 1108, Branch Until Discontinu ed, Routine, Intra-op EPINEPHrine 2020-0 Yes PRN, Univer s 1:1,000 (1 02-28 Starting ity o f mg/mL) 16:02: Thu [place] (ADRENALIN) 02/29/20 at [place] dical injection 1102, Branch Until Discontinu ed, Routine, Intra-op balanced 2020-0 Yes PRN, Univers salt irrig 02-28 Starting ity o f soln comb1 16:01: Thu [place] (BSS PLUS) 02/29/20 at [facility] ical ophthalmic 1101, Branch solution Until 500 mL bag Discontinu ed, Routine, Intra-op water for 2019-0 Yes PRN, Univers irrigation 02-28 Starting ity o f irrigation 15:55: Thu [place] solution 02/29/20 at Medic al 1055, Branch Until Discontinu ed, Routine, Intra-op Hyaluronida 2020-0 Yes PRN, Univer s se, Human 02-28 Starting ity of Recomb. 15:50: Thu (HYLENEX) 02/29/20 at [facility] kaim injection 1050, Branch Until Discontinu ed, Routine, Intra-op eye block 2020-0 Yes PRN, Univers syringe 11 02-28 Starting ity o f mL 15:50: Thu [place] 02/29/20 at Medical 1050, Branch Until Discontinu ed, Intra-op lactated 2020-0 2020- No 1000mL at Unive rs ringers IV -24 06-24 mL/hr, ity of infusion 14:00: 14:23 1,000 mL, [place] as 1,000 mL 00 :00 IV Medical Infusion, Branch ONCE, 1 dose, 02/29/20 at 0900, Routine, DSU Pre-op mydriatic 2020-0 2020- No .5mL 0.5 mL, Univ ers #5 02-2824 Left Eye, ity of ophthalmic 14:00: 14:24 ONCE, 1 [place] solution 00 :00 dose, Thu Medica l 0.5 mL 02/29/20 at Branch syringe 0900, Routine acetaminoph 2020-0 Yes 1{tbl} Take 1 Un gabby en-codeine 6-22 tablet by ity of (TYLENOL 15:01: mouth [place] #3) 300-30 28 every 4 Medica l mg tablet (four) Branch hours as needed. rivaroxaban 2020-0 Yes 10mg Take 10 mg Univers tablet 6-22 by mouth ity of 15:01: daily. [address] carbidopa-l 2020-0 Yes 1{tbl} Take 1 Un gabby evodopa 6-22 tablet by ity of 25-100 mg 15:01: mouth 2 [place] tablet 28 (two) Medical times Branch daily. omeprazole 2020-0 Yes 20mg Take 20 mg U nivers 20 mg 6-22 by mouth ity of capsule 15:01: daily. [address] rivaroxaban 2020-0 Yes 15mg Take 15 mg Univers (XARELTO) 6-22 by mouth ity of tablet 15:01: daily. [address] acetaminoph 2020-0 Yes 1{tbl} Take 1 Un gab[place] en-codeine 6-22 tablet by ity of (TYLENOL 15:01: mouth [place] #3) 300-30 28 every 4 Medica l mg tablet (four) Branch hours as needed. rivaroxaban 2020-0 Yes 10mg Take 10 mg Univers tablet 6-22 by mouth ity of 15:01: daily. [address] carbidopa-l 2020-0 Yes 1{tbl} Take 1 Un gab[place] evodopa 6-22 tablet by ity of 25-100 mg 15:01: mouth 2 [place] tablet 28 (two) Medical times Branch daily. omeprazole 2020-0 Yes 20mg Take 20 mg U nivers 20 mg 6-22 by mouth ity of capsule 15:01: daily. [place] 28 Medical Branch rivaroxaban 2020-0 Yes 15mg Take 15 mg Univers (XARELTO) 6-22 by mouth ity of tablet 15:01: daily. [address] acetaminoph 2020-0 Yes 1{tbl} Take 1 Un gabby en-codeine 1-10 tablet by ity of (TYLENOL 17:15: mouth [place] #3) 300-30 13 every 4 Medica l mg tablet (four) Branch hours as needed. rivaroxaban 2020-0 Yes 10mg Take 10 mg Univers tablet 1-10 by mouth ity of 17:15: daily. [place] 13 [facility] Branch carbidopa-l 2020-0 Yes 1{tbl} Take 1 Un gab[place] evodopa 1-10 tablet by ity of 25-100 mg 17:15: mouth 2 [place] tablet 13 (two) Medical times Branch daily. omeprazole 2020-0 Yes 20mg Take 20 mg U nivers 20 mg 1-10 by mouth ity of capsule 17:15: daily. [address] rivaroxaban 2020-0 Yes 15mg Take 15 mg Univers (XARELTO) 1-10 by mouth ity of tablet 17:15: daily. [address] Tylenol # 3 Tylenol # 3 [...] -naloxone 7-20 tablet by ity o f (MYNOR NX) 00:00: mouth [place] 50-0.5 mg 00 [...] 00:00: [place] 00 Medical Branch XARELTO 15 0 Yes TK 1 T PO U nivers mg tablet 7-10 D ity of 00:00: [place] 00 Medical Branch XARELTO 15 0 Yes TK 1 T PO U nivers mg tablet 7-10 D ity of 00:00: [place] 00 Medical Branch levofloxaci 2015-0 Yes TK 1 T PO U nivers n 5-05 D. ity of (LEVAQUIN) 00:00: [place] 500 mg 00 Medical tablet Branch levofloxaci 2015-0 Yes TK 1 T PO U nivers n 5-05 D. ity of (LEVAQUIN) 00:00: [place] 500 mg 00 Medical tablet Branch levofloxaci 2015-0 Yes TK 1 T PO U nivers n 5-05 D. ity of (LEVAQUIN) 00:00: [place] 500 mg 00 Medical tablet Branch levofloxaci 2015-0 Yes TK 1 T PO U nivers n 5-05 D. ity of (LEVAQUIN) 00:00: [place] 500 mg 00 Medical tablet Branch levofloxaci 2015-0 Yes TK 1 T PO U nivers [...] 2020-02-29 16:35:00 91 /min Universi ty of [facility] [place] [facility] Respiratory rate 2020-02-29 16:35:00 20 /min Univ ersity of [facility] [place] [facility] Oxygen saturation in 2020-02-29 16:35:00 99 /min University of Arterial blood by [facility] Pulse oximetry Branch Systolic blood 2020-02-29 14:20:00 124 mm[Hg] Univer sity of pressure [facility] [place] [facility] Diastolic blood 2020-02-29 14:20:00 59 mm[Hg] Unive rsity of [facility] Body temperature 2020-02-29 14:20:00 36.06 Emma [facility] ersity of [facility] [place] [facility] Body height 2020-02-27 14:45:00 160 cm Universi ty of [place] [facility] Body weight 2020-02-27 14:45:00 72.576 kg Universi ty of [facility] Branch BMI 2020-02-27 14:45:00 28.34 kg/m2 Universi ty of [facility] [place] [facility] Heart rate 2020-02-29 16:35:00 91 /min Universi ty of [facility] Branch Respiratory rate 2020-02-29 16:35:00 20 /min Univ ersity of [facility] [place] [facility] Oxygen saturation in 2020-02-29 16:35:00 99 /min University of Arterial blood by [facility] Pulse oximetry Branch Systolic blood 2020-02-29 14:20:00 124 mm[Hg] Univer sity of pressure [facility] Branch Diastolic blood 2020-02-29 14:20:00 59 mm[Hg] Unive rsity of pressure [facility] [place] [facility] Body temperature 2020-02-29 14:20:00 36.06 Emma Univ ersity of [facility] Body height 2020-02-27 14:45:00 160 cm Universi ty of [place] [facility] [place] Body weight 2020-02-27 14:45:00 72.576 kg Universi ty of [facility] Branch BMI 2020-02-27 14:45:00 28.34 kg/m2 [facility] Medical Branch Procedures Procedure Date / Time Performed Performing Clinician Camden RODRIGESID-19 (ID NOW 2020-02-28 15:38:00 Ryland Wright [facility] RAPID TESTING) Medical [place] Encounters Start End Encounter Admission Attending Care Care Encounter Source Date/Time Date/Time Type Type Clinicians Facility Department ID 2021-10-02 Outpatient [facility] [id number] 14:[facility]18 [id number] [facility] 2021-10-02 [facility] [id number] 14:28[facility]29 [id number] [facility] 2021-10-[address] [facility] [id number] [facility] 14:27:48 [id number] [facility] 2021-10-[address] [facility] [id number] [facility] 12[facility]57:13 [id number] [facility] 2021-07-05 Outpatient Yuli WRIGHT [facility] VÍCTOR [id number] Univers 00:26:55 RYLAND [facility] 2021-09-02 2021-09-[address] [facility] [id number] [facility] 2020-11-19 2020-11-19 Outpatient Yuli BARRIENTOS [facility] [id number] Univers 14:00:00 14:00:00 BRIAN [id number] [facility] 2020-11-19 2020-11-19 Outpatient Yuli BARRIENTOS [facility] [id number] Univers 14:00:00 14:00:00 BRIAN [facility] 2020-10-29 2020-10-29 Outpatient [facility] [id number] Univers 14:40:00 14:40:00 [id number] [facility] 2020-10-29 2020-10-29 Outpatient Yuli BARRIENTOS [facility] [id number] Univers 14:40:00 14:40:00 BRIAN [facility] 2020-02-29 2020-02-29 [facility] [id number] Univers 08:41:00 11:46:00 Encounter Ryland Box [id number] [facility] of [facility] 4.2.7.2.686 [place] [facility] [id number] [address] 2020-02-29 2020-02-29 [facility] [id number] 08:41:00 11:46:00 Encounter Ryland Box [id number] [facility] [id number] Surgical [id number] [place] [address] 2020-02-28 2020-02-28 Outpatient R [facility] [id number] Univers 13:00:00 13:00:00 [id number] [facility] 2020-02-28 2020-02-28 Laboratory Only, [facility] Test [facility] [id number] Univers 10:06:51 10:21:51 Only Ryland Wright 350.1.13.1 0 [facility] 4.2.7.2.686 [facility] [place] [id number] [address] 2020-02-28 2020-02-28 Laboratory Only, [facility] [id number] 10:06:51 10:21:51 Only Test Isauro [id number] [facility] 4.2.7.2.686 [place] [id number] [facility] 2020-02-28 2020-02-28 Outpatient R [facility] [id number] Univers 10:00:00 10:00:00 RYLAND ity [facility] 2020-02-28 2020-02-28 Telephone ROSEANN Pimentel [id number] Univers 00:00:00 00:00:00 Sneha-Jens CHENG [id number] ity of [facility] 4.2.7.2.686 [place] as [id number] [address] 2020-02-28 2020-02-28 Telephone ROSEANN Pimentel [id number] 00:00:00 00:00:00 Sneha-Jens CHENG [id number] [facility] 4.2.7.2.686 [id number] 2020-02-24 2020-02-24 Drawer Fitter 1, [facility] [place] [id number] Univers 15:00:04 15:15:04 Visit Ryland Wright 350.1.13.1 0 [facility] 4.2.7.2.686 [facility] [id number] [address] 2020-02-24 2020-02-24 Drawer Fitter 1, Adc Lab [facility] [id number] 15:00:04 15:15:04 Visit [place] [id number] [facility] 4.2.7.2.686 [place] [id number] 2020-02-24 2020-02-24 Outpatient R [facility] [id number] Univers 15:00:00 15:00:00 [id number] [facility] 2020-02-24 2020-02-24 Outpatient R GREG [facility] [id number] Univers 15:00:00 15:00:00 RYLAND [facility] 2019-05-16 2019-05-16 Drawer Fitter 1, Adc Lab [facility] [id number] Univers 12:51:29 13:06:29 Visit Ryland Wright 350.1.13.1 0 [facility] 4.2.7.2.686 [facility] [id number] [address] 2019-05-16 2019-05-16 Drawer Fitter 1, Adc Lab [facility] [id number] 12:51:29 13:06:29 Visit [place] [id number] [facility] [id number] [place] [id number] 2019-01-17 2019-01-17 [facility] [id number] 11:00:00 11:00:00 [facility] 2018-12-31 2018-12-31 [facility] [id number] 09:30:00 09:30:00 t [facility] 2018-12-23 2018-12-23 [facility] [id number] 14:30:00 14:30:00 t [facility] 2018-12-20 2018-12-20 [facility] [id number] 10:18:00 10:18:00 t [facility] 2018-12-20 2018-12-20 [facility] [id number] 10:17:00 10:17:00 t [facility] 2018-12-20 2018-12-20 [facility] [id number] 09:30:00 09:30:00 t [facility] 2018-12-13 2018-12-13 [facility] [id number] 09:00:00 09:00:00 t [facility] 2018-12-01 2018-12-01 [facility] [id number] 10:00:00 10:00:00 t [facility] ent [facility] 2018-11-08 2018-11-08 [facility] [id number] 14:30:00 14:30:00 t [facility] 2018-11-05 2018-11-05 [facility] [id number] 10:15:00 10:15:00 t [facility] ent [facility] Results Test Description Test Time Test Comments Results Result Comments Source COVID-19 (ID NOW RAPID TESTING) 2020-02-28 16:17:00 Test Item Value Reference Range Interpretation Comme nts SARS-CoV-2 Rapid ID NOW (test code Not Detected Not Detected = 91797-9) LIZETH (test code = LIZETH) ID NOW COVID-19 Assay is an isothermal nucleic acid amplification test intended for the qualitative detection of nucleic acid from SARS-CoV-2 viral RNA in nasopharyngeal ([employer] P[employer]) specimens. It is used under Emergency Use [...] indicated. Lab Interpretation (test code = Normal 70903-0) [facility]
[2021-10-11] MEDS ORDERED: ACETAMINOPHEN 325 MG TABLET ONE (17:57)
[2021-10-11] MEDS ORDERED: HYDROCODONE/APAP 5/325 MG TAB ONE ×2 (18:01→19:25)
--- NOTE | 2021-10-11 18:50 | RAD REPORT ---
EXAM DESCRIPTION: CT - CTHCSPWOC - 10/11/2021 6:11 pm CLINICAL HISTORY: Trauma, head and neck injury. fall COMPARISON: Thoracic Spine W/o Cont dated 08/19/2020; Head C Spine Mpr Wo Con dated 11/10/2016 TECHNIQUE: Axial 5 mm thick images of the head were obtained. Axial 2 mm thick images of the cervical spine were obtained with sagittal and coronal reconstruction images generated and reviewed. All CT scans are performed using dose optimization technique as appropriate and may include automated exposure control or mA/KV adjustment according to patient size. FINDINGS: CT HEAD WITHOUT CONTRAST: No acute hemorrhage, hydrocephalus or extra-axial collection is identified.Mild brain atrophy is seen . Gliosis is seen in the right occipital pole compatible with old remote infarct. Small remote infarc t also seen right cerebellar hemisphere. The paranasal sinuses and mastoids are clear. The calvarium is intact. CT CERVICAL SPINE WITHOUT CONTRAST: No fracture or subluxation.Mild lower cervical spondylosis.No prevertebral soft tissues swelling is i dentified. IMPRESSION: No acute intracranial or cervical spine findings.
--- NOTE | 2021-10-11 18:51 | RAD REPORT ---
EXAM DESCRIPTION: CT - CTFB CLINICAL HISTORY: fall Trauma, fall, facial pain and swelling COMPARISON: Facial Bones W/ Mpr dated 11/10/2016 TECHNIQUE: Axial 2 mm thick images of the face were obtained with sagittal and coronal reconstructio n images. All CT scans are performed using dose optimization technique as appropriate and may include automated exposure control or mA/KV adjustment according to patient size. FINDINGS: No acute facial bone fracture is seen.The mandible is intact. The globes and orbital contents are grossly unremarkable.The paranasal sinuses and mastoids are clear . IMPRESSION: Negative for facial bone fracture.
--- NOTE | 2021-10-11 19:13 | EDPHYS ---
Physician Documentation [facility] Name: Ning Coffey Age: 75 yrs Sex: Female : 1945 Arrival Date: 10/11/2021 Time: 17:26 Bed 13 Private MD: ED Physician Skyler Melo HPI: 10/11 17:55 This 75 yrs old Female presents to ER via Ambulatory with complaints of Fall Injury. cp 17:55 Details of fall: The patient fell from an upright position, while walking, and struck a cp carpeted surface. Onset: The symptoms/episode began/occurred just prior to arrival. Associated injuries: The patient sustained injury to the head, abrasion, contusion, swelling, tenderness. 17:55 Severity of symptoms: in the emergency department the symptoms are unchanged, despite cp home interventions. Historical: - Allergies: 17:43 Levaquin; jl7 17:43 Polysporin; jl7 17:43 Sulfa (Sulfonamide Antibiotics); jl7 - Home Meds: 17:43 Xarelto oral [Active]; carbidopa-levodopa Oral [Active]; jl7 - PMHx: 17:43 CVA; Parkinsons; jl7 - PSHx: 17:43 hysterectomy; Splenectomy; jl7 - Immunization history:: Adult Immunizations up to date, Client reports receiving the 2nd dose of the Covid vaccine. - Immunization history: Last tetanus immunization: < 10 years ago. - Social history:: Smoking status: Patient denies any tobacco usage or history of. ROS: 18:00 Neuro: Positive for headache. cp 18:00 Constitutional: Negative for body aches, chills, fever, poor PO intake. cp 18:00 Neck: Negative for pain with movement, pain at rest, stiffness, bony tenderness. cp 18:00 Cardiovascular: Negative for chest pain, palpitations. 18:00 Respiratory: Negative for cough, shortness of breath, wheezing. 18:00 Abdomen/GI: Negative for abdominal pain, vomiting, diarrhea, constipation. 18:00 Back: Negative for pain at rest, pain with movement. 18:00 MS/extremity: Negative for injury or acute deformity, decreased range of motion, paresthesias. 18:00 All other systems are negative. Exam: 18:05 Constitutional: The patient appears in no acute distress, alert, awake, cp non-diaphoretic, non-toxic, well developed, well nourished, uncomfortable. 18:05 Head/face: Noted is abrasion(s), that are mild, of the forehead, nose and mouth, cp swelling, that is mild, of the nose and mouth. 18:05 Eyes: Periorbital structures: appear normal, Pupils: equal, round, and reactive to light and accomodation, Extraocular movements: intact throughout, Conjunctiva: normal, no exudate, no injection, Lids and lashes: appear normal, bilaterally. 18:05 ENT: External ear(s): are unremarkable, Ear canal(s): are normal, clear, TM's: dullness, bilaterally, Nose: External nose: abrasion is noted, swelling is noted, Nasal septum: is midline, no septal hematoma appreciated, bleeding, is not appreciated, Mouth: Lips: moist, mild swelling of upper lip, Posterior pharynx: Airway: no evidence of obstruction, patent, Dental exam: no acute changes. 18:05 Neck: C-spine: vertebral tenderness, that is mild, appreciated at C6 and C7, crepitus, is not appreciated, ROM/movement: is normal, is supple, without pain, no range of motions limitations, no nuchal rigidity. 18:05 Chest/axilla: Inspection: normal. 18:05 Cardiovascular: Rate: normal, Rhythm: regular. 18:05 Respiratory: the patient does not display signs of respiratory distress, Respirations: normal, no use of accessory muscles, no retractions, labored breathing, is not present, Breath sounds: are clear throughout, no decreased breath sounds, no stridor, no wheezing. 18:05 Abdomen/GI: Exam negative for discomfort, distension, guarding, Inspection: abdomen appears normal. 18:05 Back: pain, is absent, ROM is normal. 18:05 Musculoskeletal/extremity: Extremities: all appear grossly normal, with no appreciated pain with palpation. 18:05 Neuro: Orientation: to person, place \T\ time. Mentation: is normal, Motor: moves all fours, strength is normal, Sensation: is normal, Gait: is steady. Vital Signs: 17:38 BP 159 / 114; Pulse 88; Resp 15; Temp 97.7; Pulse Ox 100% ; Weight 71.21 kg; Height 5 jl7 ft. 3 in. (160.02 cm); Pain 10/10; 17:40 BP 159 / 114; Pulse 88; Resp 15; Temp 97.7; Pulse Ox 100% on R/A; Weight 71.21 kg; jl7 Height 5 ft. 3 in. (160.02 cm); Pain 10/10; 17:40 Body Mass Index 27.81 (71.21 kg, 160.02 cm) jl7 [place] Coma Score: 17:40 Eye Response: spontaneous(4). Verbal Response: oriented(5). Motor Response: obeys jl7 commands(6). Total: 15. Trauma Score (Adult): 17:40 Eye Response: spontaneous(1); Verbal Response: oriented(1); Motor Response: obeys jl7 commands(2); Systolic BP: > 89 mm Hg(4); Respiratory Rate: 10 to 29 per min(4); [place] Score: 15; Trauma Score: 12 MDM: 17:47 Patient medically screened. cp 18:00 Differential diagnosis: abrasion, closed head injury, contusion, fracture, laceration, cp multiple trauma. 19:12 Data reviewed: vital signs, nurses notes, radiologic studies, CT scan. cp 19:12 Counseling: I had a detailed discussion with the patient and/or guardian regarding: the cp historical points, exam findings, and any diagnostic results supporting the discharge/admit diagnosis, radiology results, to return to the emergency department if symptoms worsen or persist or if there are any questions or concerns that arise at home. Special discussion: Based on the patient's history, exam and DX evaluation, there is no indication for emergent intervention or inpatient TX. It is understood by the patient/guardian that if the SXs persist or worsen they need to return immediately for re-evaluation. 10/11 17:48 Order name: CT Head C Spine; Complete Time: 18:57 cp 10/11 17:48 Order name: CT Facial Bones W/O Con; Complete Time: 18:57 cp Administered Medications: 18:02 Drug: Tylenol 650 mg Route: PO; ic1 19:15 Drug: HYDROcodone-acetaminophen 5 mg-325 mg 1 tabs {Note: Given by day shift nurse.} ll3 Route: PO; 19:33 Follow up: Response: No adverse reaction ll3 Disposition: 19:20 Chart complete. cp 10/12 16:08 Co-signature as Attending Physician, Skyler Melo MD I agree with the assessment and kdr plan of care. Disposition Summary: 10/11/21 19:12 Discharge Ordered Location: Home cp Problem: new cp Symptoms: have improved cp Condition: Stable cp Diagnosis - Abrasion of unspecified part of head cp - Fall on same level, unspecified cp Followup: cp - With: Private Physician - When: 2 - 3 days - Reason: Recheck today's complaints Discharge Instructions: - Discharge Summary Sheet cp - Head Injury, Adult cp - Fall Prevention in the Home, Adult cp Forms: - Medication Reconciliation Form cp - Thank You Letter cp - Antibiotic Education cp - Prescription Opioid Use cp Signatures: Dispatcher [employer] EDMS Skyler Melo MD MD kdr Raz Arredondo PA PA cp Wendy Renteria, RN RN jl7 Meghan Jones RN RN ll3 Vielka Biswas RN RN ic1
--- NOTE | 2021-10-11 19:13 | ER ---
Nurse's Notes [facility] Name: Ning Coffey Age: 75 yrs Sex: Female : 1945 Arrival Date: 10/11/2021 Time: 17:26 Bed 13 Private MD: Diagnosis: Abrasion of unspecified part of head;Fall on same level, unspecified Presentation: 10/11 17:38 Chief complaint: Patient states: Tripped over a rug and fell face first down, swelling jl7 and abrasions noted to bridge of nose, forehead and lip, states "I heard a crunch when I hit." reports taking Xarelto. Coronavirus screen: At this time, the client does not indicate any symptoms associated with coronavirus-19. Ebola Screen: No symptoms or risks identified at this time. Initial Sepsis Screen: Does the patient meet any 2 criteria? No. Patient's initial sepsis screen is negative. Does the patient have a suspected source of infection? No. Patient's initial sepsis screen is negative. Risk Assessment: Do you want to hurt yourself or someone else? Patient reports no desire to harm self or others. Onset of symptoms was October 11, 2021 at 17:00. 17:38 Method Of Arrival: Ambulatory jl7 17:38 Acuity: DANIELLE 2 jl7 17:40 Care prior to arrival: None. Mechanism of Injury: Fall from standing position. Trauma jl7 event details: Injury occurred in the [facility], Injury occurred: at home. Injury occurred: October 11, 2021 Injury occurred at: 17:00. Triage Assessment: 17:43 General: Appears in no apparent distress. uncomfortable, Behavior is calm, cooperative, jl7 appropriate for age. Pain: Complains of pain in face Pain currently is 10 out of 10 on a pain scale. Historical: - Allergies: 17:43 Levaquin; jl7 17:43 Polysporin; jl7 17:43 Sulfa (Sulfonamide Antibiotics); jl7 - Home Meds: 17:43 Xarelto oral [Active]; carbidopa-levodopa Oral [Active]; jl7 - PMHx: 17:43 CVA; Parkinsons; jl7 - PSHx: 17:43 hysterectomy; Splenectomy; jl7 - Immunization history:: Adult Immunizations up to date, Client reports receiving the 2nd dose of the Covid vaccine. - Immunization history: Last tetanus immunization: < 10 years ago. - Social history:: Smoking status: Patient denies any tobacco usage or history of. Screenin:40 Abuse screen: Denies threats or abuse. Denies injuries from another. Tuberculosis jl7 screening: No symptoms or risk factors identified. Primary Survey: 17:40 NO uncontrolled hemorrhage observed. A: The patient is alert. Airway: patent. jl7 Breathing/Chest: Respiratory pattern: regular, Respiratory effort: spontaneous, unlabored, Chest inspection: symmetrical rise and fall of the chest. Circulation: Pulses: palpable right radial artery and left radial artery. Skin color: pink, Skin temperature: warm. Disability Alert. Exposure/Environment: There is no evidence of uncontrolled external bleeding. Obvious injury(ies) are noted at this time: Swelling and minor abrasion noted to bridge of nose, forehead and lips. Assessment: 18:02 Reassessment: C-collar applied to pt. Pt wheeled to CT scan. ic1 Vital Signs: 17:38 BP 159 / 114; Pulse 88; Resp 15; Temp 97.7; Pulse Ox 100% ; Weight 71.21 kg; Height 5 jl7 ft. 3 in. (160.02 cm); Pain 10/10; 17:40 BP 159 / 114; Pulse 88; Resp 15; Temp 97.7; Pulse Ox 100% on R/A; Weight 71.21 kg; jl7 Height 5 ft. 3 in. (160.02 cm); Pain 10/10; 17:40 Body Mass Index 27.81 (71.21 kg, 160.02 cm) jl7 [place] Coma Score: 17:40 Eye Response: spontaneous(4). Verbal Response: oriented(5). Motor Response: obeys jl7 commands(6). Total: 15. Trauma Score (Adult): 17:40 Eye Response: spontaneous(1); Verbal Response: oriented(1); Motor Response: obeys jl7 commands(2); Systolic BP: > 89 mm Hg(4); Respiratory Rate: 10 to 29 per min(4); Tim Score: 15; Trauma Score: 12 ED Course: 17:26 Patient arrived in ED. as 17:40 Triage completed. jl7 17:40 Patient has correct armband on for positive identification. jl7 17:40 Patient maintains SpO2 saturation greater than 95% on room air. Thermoregulation: warm jl7 blanket given to patient. 17:43 Arm band placed on right wrist. jl7 17:44 Raz Arredondo PA is PHCP. cp 17:44 Skyler Melo MD is Attending Physician. cp 18:10 CT Head C Spine In Process Unspecified. EDMS 18:10 CT Facial Bones W/O Con In Process Unspecified. EDMS 19:32 No provider procedures requiring assistance completed. Patient did not have IV access ll3 during this emergency room visit. Administered Medications: 18:02 Drug: Tylenol 650 mg Route: PO; ic1 19:15 Drug: HYDROcodone-acetaminophen 5 mg-325 mg 1 tabs {Note: Given by day shift nurse.} ll3 Route: PO; 19:33 Follow up: Response: No adverse reaction ll3 Outcome: 19:12 Discharge ordered by MD. cp 19:32 Discharged to home ambulatory, with friend. ll3 19:32 Condition: stable 19:32 Discharge instructions given to patient, family, Instructed on discharge instructions, follow up and referral plans. Demonstrated understanding of instructions, follow-up care. 19:33 Patient left the ED. ll3 Signatures: Dispatcher [employer] EDMS Sara Abel as Raz Arredondo PA PA cp Leal, Jahala, RN RN jl7 Meghan Jones RN RN ll3 Vielka Biswas RN RN ic1
[2021-10-11 19:37] VITALS: BP 159/114; TEMP 97.7; O2SAT 100
== END 2021-10-11 19:33 | disposition home or self-care (01) ==
LOC: ER 17:26
DX: S00.81XA Abrasion of other part of head, initial encounter (principal); W18.30XA Fall on same level, unspecified, initial encounter; G20 Parkinson's disease; Z79.01 Long term (current) use of anticoagulants; Z88.1 Allergy status to other antibiotic agents; Z88.2 Allergy status to sulfonamides; Z88.8 Allergy status to other drugs, medicaments and biological substances
CPT/HCPCS: 70450; 70486; 72125; 76377; 99284

== ENCOUNTER 2022-01-09 17:43 | Emergency (ER) | payer OTHER, MEDICARE ==
--- OUTSIDE RECORDS SUMMARY | 2022-01-09 17:46 | XMS REPORT | Continuity of Care Document ---
:1945 Author Organization [facility] t Address [address] [place] [address] Care Team Providers Name Role Phone GANGA HARDWICK Attending Clinician Unavailable GREG, A Attending Clinician Unavailable Huber BARRIENTOS Attending Clinician Unavailable Greg DORMAN, A Attending Clinician Only, Test Attending Clinician Unavailable Pimentel Attending Clinician 1, Lab Attending Clinician Unavailable GREG, A Admitting Clinician Unavailable Greg DORMAN, A Admitting Clinician Payers Payer Name Policy Type Policy Number Effective Date Expiration Date [facility] [place] A \T\ [id number] 2010 B 00:00:00 [facility] [id number] 2016 MEDICARE SUPPLEMENT 00:00:00 Problems Condition Condition Condition Status Onset Resolution Last Treating Co mments Source Name Details Category Date Date Treatment Clinician Date No known No known Disease Unive rs active active ity of problems problems [facility] Allergies, Adverse Reactions, Alerts Allergy Allergy Status Severity Reaction(s) Onset Inactive Treating Comm ents Source Name Type Date Date Clinician BACITRAC DRUG Active Rash 2020-0 Univers IN-POLYM 6- ity of YXIN B 00:00: [address] Bacitrac Propensi Active Rash 2020-0 Univer [...] [facility] History [facility] Alcohol Binge Medical Bra [facility] Exposure to Not sure [facility] SARS-CoV-2 (event) Medica l Branch Alcohol intake 2020-02-27 2020-02-27 [facility] 00:00:00 00:00:00 Medical Branch History [facility] 2019-05-24 2019-05-24 5 [facility] Alcohol Frequency 00:00:00 00:00:00 Medical Branch History [facility] 2019-05-24 2019-05-24 1 [facility] Alcohol Std Drinks 00:00:00 00:00:00 Medica l Branch Smoking Status Start Date Stop Date Source Former smoker 2020-02-27 00:00:00 2020-02-27 00:00:00 [facility] Medical Branch Medications Ordered Filled Start Stop Current Ordering Indication Dosage Frequency Signature Comments Components Source Medication Medication Date Date Medication? Clinician (SIG) Name Name acetaminoph Yes 1{tbl} Take 1 Un gabby en-codeine 6-24 tablet by ity of (TYLENOL 18:23: mouth [place] #3) 300-30 35 every 4 Medica l mg tablet (four) Branch hours as needed. rivaroxaban 2020-0 Yes 10mg Take 10 mg Univers tablet 6-24 by mouth ity of 18:23: daily. [address] carbidopa-l 2020-0 Yes 1{tbl} Take 1 Un gabby evodopa 6-24 tablet by ity of 25-100 mg 18:23: mouth 2 [place] tablet 35 (two) Medical times Branch daily. omeprazole 2020-0 Yes 20mg Take 20 mg U nivers 20 mg 6-24 by mouth ity of capsule 18:23: daily. [address] lactated 2020-0 Yes 1000mL at 75 Univer s ringers IV 6-24 mL/hr, ity of infusion 16:45: 1,000 [place], [place] 1[place]000 [place] 00 IV Medical Infusion, Branch CONTINUOUS , Starting Thu02/29/20 at 1145, Until Discontinu ed, Routine, PACU rivaroxaban 2020-0 2020- No 15mg Take 15 mg Univers (XARELTO) 6-24 06-24 by mouth ity o f tablet 16:31: 00:00 daily. [place] 47 :00 [facility] Branch neomycin-po 2020-0 Yes PRN, Univer s lymyxin-dex 6-24 Starting ity of amethasone 16:13: Thu [place] (MAXITROL) 02/29/20 at [facility] ica 3.5 1113, Branch mg/g-10,000 Until unit/g-0.1 Discontinu % ed, ophthalmic Routine, ointment Intra-op sodium 2020-0 Yes PRN, Univers chloride 6-24 Starting ity of (NS) 16:12: Thu [place] injection 02/29/20 at [facility] 1112, Branch Until Discontinu ed, Routine, Intra-op gentamicin 2020-0 Yes PRN, Univers injection 6-24 Starting ity of 16:12: Thu [place] 00 02/29/20 at [place] [id number], Branch Until Discontinu ed, ALE, Intra-op dexamethaso 2020-0 Yes PRN, Univer s ne 6-24 Starting ity of (DECADRON 16:12: Wed [place] PHOSPHATE) 02/29/20 at [facility] ical injection 1112, Branch Until Discontinu ed, Routine, Intra-op ceFAZolin 2020-0 Yes PRN, Univers (ANCEF) 6-24 Starting ity of injection 16:12: Thu [place] 00 02/29/20 at Medical 1112, Branch Until Discontinu ed, ALE, Intra-op DUOVISC 2020-0 Yes PRN, Univers (DUOVISC 02-28 Starting ity of VISCO 16:08: Thu ELASTIC) 3 02/29/20 at [facility] ical %-4 %(0.5 1108, Branch mL) 1 % Until (0.55 mL) Discontinu intraocular ed, injection Routine, Intra-op carbachoL 2020-0 Yes PRN, Univers (MIOSTAT) 02-28 Starting ity of 0.01 % 16:08: Thu intraocular 00 02/29/20 at Ne dical injection 1108, Branch Until Discontinu ed, Routine, Intra-op EPINEPHrine 2020-0 Yes PRN, Univer s 1:1,000 (1 02-28 Starting ity o f mg/mL) 16:02: Thu [place] (ADRENALIN) 02/29/20 at Ne dical injection 1102, Branch Until Discontinu ed, Routine, Intra-op balanced 2020-0 Yes PRN, Univers salt irrig 02-28 Starting ity o f soln comb1 16:01: Thu (BSS PLUS) 02/29/20 at [facility] ical ophthalmic 1101, Branch solution Until 500 mL bag Discontinu ed, Routine, Intra-op water for 2019-0 Yes PRN, Univers irrigation 02-28 Starting ity o f irrigation 15:55: Thu [place] solution 02/29/20 at Medic al 1055, Branch Until Discontinu ed, Routine, Intra-op Hyaluronida 2020-0 Yes PRN, Univer s se, Human 02-28 Starting ity of Recomb. 15:50: Thu (HYLENEX) 02/29/20 at [facility] kami injection 1050, Branch Until Discontinu ed, Routine, Intra-op eye block 2020-0 Yes PRN, Univers syringe 11 02-28 Starting ity o f mL 15:50: Thu [place] 02/29/20 at Medical 1050, Branch Until Discontinu ed, Intra-op lactated 2020-0 2020- No 1000mL at [address] [place], [place] [id number] rs ringers IV -24 06-24 mL/hr, ity [...] tablet by ity of (TYLENOL 15:01: mouth [place] #3) 300-30 28 every 4 Medica l mg tablet (four) Branch hours as needed. rivaroxaban 2020-0 Yes 10mg Take 10 mg Univers tablet 6-22 by mouth ity of 15:01: daily. [address] carbidopa-l 2020-0 Yes 1{tbl} Take 1 Un gabby evodopa 6-22 tablet by ity of 25-100 mg 15:01: mouth 2 [place] tablet 28 (two) Medical times Branch daily. omeprazole 2020-0 Yes 20mg Take 20 mg U nivers 20 mg 6-22 by mouth ity of capsule 15:01: daily. [address] rivaroxaban 2020-0 Yes 15mg Take 15 mg Univers (XARELTO) 6-22 by mouth ity of tablet 15:01: daily. [address] acetaminoph 2020-0 Yes 1{tbl} Take 1 Un gabby en-codeine 6-22 tablet by ity of (TYLENOL 15:01: mouth [place] #3) 300-30 28 every 4 Medica l mg tablet (four) Branch hours as needed. rivaroxaban 2020-0 Yes 10mg Take 10 mg Univers tablet 6-22 by mouth ity of 15:01: daily. [address] carbidopa-l 2020-0 Yes 1{tbl} Take 1 Un gabby evodopa 6-22 tablet by ity of 25-100 mg 15:01: mouth 2 [place] tablet 28 (two) Medical times Branch daily. omeprazole 2020-0 Yes 20mg Take 20 mg U nivers 20 mg 6-22 by mouth ity of capsule 15:01: daily. [address] rivaroxaban 2020-0 Yes 15mg Take 15 mg Univers (XARELTO) 6-22 by mouth ity of tablet 15:01: daily. [address] acetaminoph 2020-0 Yes 1{tbl} Take 1 Un gabby en-codeine 1-10 tablet by ity of (TYLENOL 17:15: mouth [place] #3) 300-30 13 every 4 Medica l mg tablet (four) Branch hours as needed. rivaroxaban 2020-0 Yes 10mg Take 10 mg Univers tablet 1-10 by mouth ity of 17:15: daily. [place] 13 [facility] carbidopa-l 2020-0 Yes 1{tbl} Take 1 Un gabby evodopa 1-10 tablet by ity of 25-100 mg 17:15: mouth 2 [place] tablet 13 (two) Medical times Branch daily. omeprazole 2020-0 Yes 20mg Take 20 mg U nivers 20 mg 1-10 by mouth ity of capsule 17:15: daily. [address] rivaroxaban 2020-0 Yes 15mg Take 15 mg Univers (XARELTO) 1-10 by mouth ity of tablet 17:15: daily. [address] Tylenol # 3 Tylenol # 3 [...] Branch hours as needed for Pain. pentazocine 2016-0 Yes 1{tbl} Take 1 Un gabby -naloxone [...] Pain. pentazocine Yes 1{tbl} Take 1 Un gabyb -naloxone 7-20 tablet by ity o f [...] 2020-02-29 16:35:00 91 /min Universi ty of [facility] Respiratory rate 2020-02-29 16:35:00 20 /min Univ ersity of [facility] Oxygen saturation in 2020-02-29 16:35:00 99 /min University of Arterial blood by [facility] [place] [facility] Pulse oximetry Branch Systolic blood 2020-02-29 14:20:00 124 mm[Hg] Univer sity of pressure [facility] Diastolic blood 2020-02-29 14:20:00 59 mm[Hg] Unive rsity of [facility] Body temperature 2020-02-29 14:20:00 36.06 [facility] ersity of [facility] Body height 2020-02-27 14:45:00 160 cm Universi ty of [facility] Body weight 2020-02-27 14:45:00 72.576 kg Universi ty of [facility] BMI 2020-02-27 14:45:00 28.34 kg/m2 Universi ty [facility] Heart rate 2020-02-29 16:35:00 91 /min Universi ty [facility] Branch Respiratory rate 2020-02-29 16:35:00 20 /min Univ ersity of [facility] Oxygen saturation in 2020-02-29 16:35:00 99 /min University of Arterial blood by [facility] [place] [facility] Pulse oximetry Branch Systolic blood 2020-02-29 14:20:00 124 mm[Hg] Univer sity of pressure [facility] Branch Diastolic blood 2020-02-29 14:20:00 59 mm[Hg] Unive rsity of pressure [facility] Body temperature 2020-02-29 14:20:00 36.06 Emma Univ ersity of [facility] Body height 2020-02-27 14:45:00 160 cm Universi ty of [facility] Body weight 2020-02-27 14:45:00 72.576 kg Universi ty of [facility] BMI 2020-02-27 14:45:00 28.34 kg/m2 [facility] Medical [place] Procedures Procedure Date / Time Performed Performing Clinician Camden RODRIGESID-19 (ID NOW 2020-02-28 15:38:00 Ryland Wright [facility] RAPID TESTING) Medical [place] Encounters Start End Encounter Admission Attending Care Care Encounter Source Date/Time Date/Time Type Type Clinicians Facility Department ID 2021-10-02 Outpatient GANGA HARDWICK [facility] [id number] [facility] 14:29:18 [id number] [facility] 2021-10-02 Outpatient GANGA HARDWICK [facility] [id number] [facility] 14:28:29 [id number] [facility] 2021[facility]10-02 Outpatient GANGA HARDWICK [facility] [id number] [facility] 14:27:48 [id number] [facility] 2021-10-02 Outpatient GANGA HARDWICK [facility] [id number] [facility] 12:57:13 [id number] [facility] 2021-07-05 Outpatient Yuli WRIGHT [place]UST VÍCTOR [id number] Univers 00:26:55 RYLAND [facility] 2021-09-02 2021-09-02 ambulatory [facility] [id number] [facility] 00[facility]00 [facility] 2020-11-19 2020-11-19 Outpatient Yuli BARRIENTOS [facility] [id number] Univers 14:00:00 14:00:00 BRIAN [id number] [facility] 2020-11-19 2020-11-19 Outpatient Yuli BARRIENTOS [facility] [id number] Univers 14:00:00 14:00:00 BRIAN [facility] 2020-10-29 2020-10-29 Outpatient [facility] [id number] Univers 14:40:00 14:40:00 [id number] [facility] 2020-10-29 2020-10-29 Outpatient Yuli BARRIENTOS [facility] [id number] Univers 14:40:00 14:40:00 BRIAN [facility] 2020-02-29 2020-02-29 [facility] [id number] 08:41:00 11:46:00 Encounter Ryland [place] [id number] [place] 4.2.7.2.686 Surgical [id number] [place] [id number] 2020-02-29 2020-02-29 [facility] [id number] Univers 08:41:00 11:46:00 Encounter Ryland Sanz [place] [id number] ity of [place] 4.2.7.2.686 [place] Surgical [id number] Med [address] 2020-02-28 2020-02-28 Outpatient R [facility] [id number] Univers 13:00:00 13:00:00 [id number] ity [facility] 2020-02-28 2020-02-28 Laboratory Only, [facility] [id number] 10:06:51 10:21:51 Only Test Isauro [id number] [place] 4.2.7.2.686 Friend [id number] [facility] 2020-02-28 2020-02-28 Laboratory Only, [facility] Test RUST 1.2.840. [id number] [facility] 10:06:51 10:21:51 Only Ryland Wright 350.1.13.1 0 ity of [place] 4.2.7.2.686 [place] Friend [id number] [facility] [address] [place] 2020-02-28 2020-02-28 Outpatient [facility] [id number] Univers 10:00:00 10:00:00 RYLAND ity [facility] 2020-02-28 2020-02-28 Telephone ROSEANN Pimentel [id number] Univers 00:00:00 00:00:00 Sneha-Jens MONAEY [id number] ity of [facility] 4.2.7.2.686 [place] as [id number] [facility] 019 Branch 2020-02-28 2020-02-28 Telephone ROSEANN Pimentel [id number] 00:00:00 00:00:00 Sneha-Jens CHENG [id number] [facility] 4.2.7.2.686 [id number] 2020-02-24 2020-02-24 Depilatory Painter 1, Adc Lab [place] [id number] Univers 15:00:04 15:15:04 Visit Ryland Wright 350.1.13.1 0 ity of [place] 4.2.7.2.686 [facility] [id number] [address] 2020-02-24 2020-02-24 Depilatory Painter 1, Adc Lab [place] [id number] 15:00:04 15:15:04 Visit [place] [id number] [place] 4.2.7.2.686 Friend [id number] [facility] 2020-02-24 2020-02-24 Outpatient R [facility] [id number] Univers 15:00:00 15:00:[id number] [place] [address] 2020-02-24 2020-02-24 Outpatient R GREG [facility] [id number] Univers 15:00:00 15:00:00 RYLAND [facility] 2019-05-16 2019-05-16 Depilatory Painter 1, Adc Lab [place] [id number] Univers 12:51:29 13:06:29 Visit Ryland Wright 350.1.13.1 0 ity of [place] 4.2.7.2.686 [facility] [id number] [address] 2019-05-16 2019-05-16 Depilatory Painter 1, Adc Lab [place] [id number] 12:51:29 13:06:29 Visit [place] 350.1.13.10 [place] 4.2.7.2.686 Friend [id number] [facility] 2019-01-17 2019-01-17 Outpatient [facility] [id number] 11:00:00 11:00:00 t [facility] 2018-12-31 2018-12-31 [place] [facility] [place] [id number] 09:30:00 09:30:00 t [facility] ent Clinics 2018-12-23 2018-12-23 [place] [facility] [id number] 14:30:00 14:30:00 t [facility] ent [facility] 2018-12-20 2018-12-20 [facility] [id number] 10:18:00 10:18:00 t [facility] 2018-12-20 2018-12-20 [facility] [id number] 10:17:00 10:17:00 t [facility] 2018-12-20 2018-12-20 [facility] [id number] 09:30:00 09:30:00 t [facility] 2018-12-13 2018-12-13 [facility] [id number] 09:00:00 09:00:00 t [facility] 2018-12-01 2018-12-01 [facility] [id number] 10:00:00 10:00:00 t [facility] ent [facility] 2018-11-08 2018-11-08 [facility] [id number] 14:30:00 14:30:00 t [facility] 2018-11-05 2018-11-05 [facility] [id number] 10:15:00 10:15:00 t Bone [facility] Results Test Description Test Time Test Comments Results Result Comments Source COVID-19 (ID NOW RAPID TESTING) 2020-02-28 16:17:00 Test Item Value Reference Range Interpretation Comme nts SARS-CoV-2 Rapid ID NOW (test code Not Detected Not Detected = 55802-3) LIZETH (test code = LIZETH) ID NOW COVID-19 Assay is an isothermal nucleic acid amplification test intended for the qualitative detection of nucleic acid from SARS-CoV-2 viral RNA in nasopharyngeal (BREAD PAN GREASER) specimens. It is used under Emergency Use [...] indicated. Lab Interpretation (test code = Normal 33824-2) [facility]
--- NOTE | 2022-01-09 18:09 | EDPHYS ---
Physician Documentation [facility] Name: Ning Coffey Age: 76 yrs Sex: Female : 1945 Arrival Date: 01/09/2022 Time: 17:45 Bed Waiting Private MD: ALEXANDER Physician Raz Freire HPI: 01/09 19:29 This 76 yrs old Female presents to ER via Ambulatory with complaints of Skin Tear(s) - jh7 right arm. 19:29 Onset: The symptoms/episode began/occurred 1 hour(s) ago. Patient bumped the corner of [facility] her couch with her right arm. She states that there is a sharp part that it caused a laceration. She cleansed the wound prior to arrival but wanted to get it looked at. She reports that her tetanus is current.. Historical: - Allergies: 18:04 Levaquin; ab2 18:04 Polysporin; ab2 18:04 Sulfa (Sulfonamide Antibiotics); ab2 - PMHx: 18:04 CVA; Parkinsons; ab2 - PSHx: 18:04 hysterectomy; Splenectomy; ab2 - Immunization history:: Adult Immunizations up to date. - Social history:: Smoking status: Patient denies any tobacco usage or history of. ROS: 19:29 Constitutional: Negative for fever, chills, and weight loss, Cardiovascular: Negative jh7 for chest pain, palpitations, and edema, Respiratory: Negative for shortness of breath, cough, wheezing, and pleuritic chest pain, MS/Extremity: Negative for injury and deformity, Neuro: Negative for headache, weakness, numbness, tingling, and seizure. 19:29 Skin: Positive for avulsion. Exam: 19:29 Skin: injury, avulsion(s), of the dorsal aspect of right forearm, 2 cm avulsion jh7 laceration with a flap present on the dorsal right forearm. There is no active bleeding, swelling, or erythema noted.. 19:34 Constitutional: This is a well developed, well nourished patient who is awake, alert, jh7 and in no acute distress. Neck: Trachea midline, no thyromegaly or masses palpated, and no cervical lymphadenopathy. Supple, full range of motion without nuchal rigidity, or vertebral point tenderness. No Meningismus. Cardiovascular: Regular rate and rhythm with a normal S1 and S2. No gallops, murmurs, or rubs. Normal PMI, no JVD. No pulse deficits. Respiratory: Lungs have equal breath sounds bilaterally, clear to auscultation and percussion. No rales, rhonchi or wheezes noted. No increased work of breathing, no retractions or nasal flaring. Back: No spinal tenderness. No costovertebral tenderness. Full range of motion. MS/ Extremity: Pulses equal, no cyanosis. Neurovascular intact. Full, normal range of motion. Neuro: Awake and alert, GCS 15, oriented to person, place, time, and situation. Motor strength 5/5 in all extremities. Sensory grossly intact. Normal gait. Vital Signs: 18:02 BP 151 / 99; Pulse 92; Resp 18; Temp 98.7; Pulse Ox 99% on R/A; Weight 71.21 kg; Height ab2 5 ft. 3 in. (160.02 cm); Pain 4/10; 18:02 Body Mass Index 27.81 (71.21 kg, 160.02 cm) ab2 MDM: 18:08 Patient medically screened. [facility] 19:29 Differential diagnosis: Avulsion. Data reviewed: vital signs, nurses notes. Data [facility] interpreted: Pulse oximetry: is 99 %. Interpretation: normal. ED course: The wound was cleansed and bandaged in the ER. The patient remained stable throughout the entire ER visit. She was advised to monitor for signs and symptoms of infection such as redness, swelling, purulent drainage, or fever. she was advised to initiate the prescribed antibiotic only if she experiences signs and symptoms of infection. If the symptoms continue despite antibiotic therapy, she is to return to the ER. She was encouraged to keep the wound clean and covered at home. The patient understood the plan of care.. 01/09 18:07 Order name: Wound dressing [facility] Administered Medications: No medications were administered Disposition Summary: 01/09/22 18:08 Discharge Ordered Location: Home [facility] Problem: new [facility] Symptoms: are unchanged [facility] Condition: Stable 7 Diagnosis - Arm Laceration Right/Open wound forearm jh7 Followup: 7 - With: Private Physician - When: 5 - 6 days - Reason: Recheck today's complaints Discharge Instructions: - Discharge Summary Sheet 7 - Deep Skin Avulsion 7 - Wound Care, Adult [facility] Forms: - Medication Reconciliation Form [facility] - Thank You Letter 7 - Antibiotic Education [facility] - Prescription Opioid Use [facility] Prescriptions: - cephalexin 500 mg Oral capsule - take 1 capsule by ORAL route every 12 hours for 10 days; 14 capsule; Refills: [facility] 0, Product Selection Permitted - mupirocin 2 % Topical ointment - apply 1 application by TOPICAL route 3 times per day; 1 tube; Refills: 0, [facility] Product Selection Permitted Signatures: Matt Chang Jennifer, SLOT MACHINE KEY PERSON SLOT MACHINE KEY PERSON [facility]
--- NOTE | 2022-01-09 18:09 | ER ---
Nurse's Notes [facility] Name: Ning Coffey Age: 76 yrs Sex: Female : 1945 Arrival Date: 01/09/2022 Time: 17:45 Bed Waiting [facility] MD: Diagnosis: Arm Laceration Right/Open wound forearm Presentation: 01/09 18:02 Chief complaint: Patient states: "I hit the corner of the couch and ripped my skin ab2 open.". Coronavirus screen: Vaccine status: Patient reports receiving the 2nd dose of the covid vaccine. Client denies travel out of the [place] in the last 14 days. At this time, the client does not indicate any symptoms associated with coronavirus-19. Ebola Screen: Patient negative for fever greater than or equal to 101.5 degrees Fahrenheit, and additional compatible Ebola Virus Disease symptoms Patient denies exposure to infectious person. Patient denies travel to an Ebola-affected area in the 21 days before illness onset. No symptoms or risks identified at this time. Initial Sepsis Screen: Does the patient meet any 2 criteria? No. Patient's initial sepsis screen is negative. Does the patient have a suspected source of infection? No. Patient's initial sepsis screen is negative. Risk Assessment: Do you want to hurt yourself or someone else? Patient reports no desire to harm self or others. Onset of symptoms is unknown. 18:02 Method Of Arrival: Ambulatory ab2 18:02 Acuity: DANIELLE 4 ab2 Triage Assessment: 18:04 General: Appears in no apparent distress. uncomfortable, Behavior is appropriate for ab2 age, anxious. Pain: Complains of pain in right arm Pain currently is 7 out of 10 on a pain scale. EENT: No deficits noted. No signs and/or symptoms were reported regarding the EENT system. Neuro: Level of Consciousness is awake, alert, obeys commands, Oriented to person, place, time, situation, Appropriate for age Cook Helper Fruit are equal bilaterally Moves all extremities. Gait is steady, Speech is normal. Cardiovascular: No deficits noted. Respiratory: Airway is patent Respiratory effort is even, unlabored, Respiratory pattern is regular, symmetrical. GI: No deficits noted. No signs and/or symptoms were reported involving the gastrointestinal system. : No deficits noted. No signs and/or symptoms were reported regarding the genitourinary system. Derm: Wound noted dorsal aspect of right forearm Wound is Skin tear. Historical: - Allergies: 18:04 Levaquin; ab2 18:04 Polysporin; ab2 18:04 Sulfa (Sulfonamide Antibiotics); ab2 - PMHx: 18:04 CVA; Parkinsons; ab2 - PSHx: 18:04 hysterectomy; Splenectomy; ab2 - Immunization history:: Adult Immunizations up to date. - Social history:: Smoking status: Patient denies any tobacco usage or history of. Screenin:05 Abuse screen: Denies threats or abuse. Denies injuries from another. Nutritional ab2 screening: No deficits noted. Tuberculosis screening: No symptoms or risk factors identified. Fall Risk None identified. Vital Signs: 18:02 BP 151 / 99; Pulse 92; Resp 18; Temp 98.7; Pulse Ox 99% on R/A; Weight 71.21 kg; Height ab2 5 ft. 3 in. (160.02 cm); Pain 4/10; 18:02 Body Mass Index 27.81 (71.21 kg, 160.02 cm) ab2 ED Course: 17:45 Patient arrived in ED. am2 18:04 Triage completed. ab2 18:05 Arm band placed on left wrist. ab2 18:06 [facility] jh7 18:06 Raz Freire MD is Attending Physician. 7 18:06 Patient has correct armband on for positive identification. Bed in low position. Call ab2 light in reach. Side rails up X2. 18:06 No provider procedures requiring assistance completed. ab2 18:19 Dressings: Kerlix X 1; dorsal aspect of right forearm non-adherent dressing x 1 dorsal ab2 aspect of right forearm. Wound care: to skin tear located on dorsal aspect of right forearm was cleaned with dressed with 4X4s, Kerlix, Vaseline gauze. 18:20 Patient did not have IV access during this emergency room visit. ab2 Administered Medications: No medications were administered Outcome: 18:08 Discharge ordered by . [facility] 18:20 Discharged to home ambulatory. ab2 18:20 Condition: good 18:20 Discharge instructions given to patient, Instructed on discharge instructions, follow up and referral plans. medication usage, Demonstrated understanding of instructions, follow-up care, medications, Prescriptions given X 2. 18:20 Patient left the ED. ab2 Signatures: Ivelisse Hannon am2 Matt Chang2 Chery Galan FNP FNP jh7
[2022-01-09 19:14] VITALS: BP 151/99; TEMP 98.7; O2SAT 99
== END 2022-01-09 18:20 | disposition home or self-care (01) ==
LOC: ER 17:43
DX: S51.811A Laceration without foreign body of right forearm, initial encounter (principal); W26.8XXA Contact with other sharp object(s), not elsewhere classified, initial encounter; G20 Parkinson's disease; Z86.73 Personal history of transient ischemic attack (TIA), and cerebral infarction without residual deficits; Z88.1 Allergy status to other antibiotic agents; Z88.2 Allergy status to sulfonamides; Z88.3 Allergy status to other anti-infective agents
CPT/HCPCS: 99283

== ENCOUNTER → 2023-11-30 | Emergency (ER) | payer MEDICARE, OTHER ==
[~2023-11-30] MED LIST: HYDROCODONE/APAP 5/325 MG TAB ONE
--- NOTE | 2023-11-30 14:15 | RAD REPORT ---
EXAM DESCRIPTION: CT - Head C Spine Mpr Wo Con - 11/30/2023 1:56 pm CLINICAL HISTORY: Head and neck injury status post fall. Head and neck pain COMPARISON: 2021 TECHNIQUE: Computed axial tomography of the head and cervical spine was obtained. Sagittal and coronal reconstruction was performed. All CT scans are performed using dose optimization technique as appropriate and may include automated exposure control or mA/KV adjustment according to patient size. FINDINGS: Large right periorbital hematoma. Right globe is intact. 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 An intracranial bleed is not seen. The ventricles are normal in caliber. An extra-axial fluid collection is not noted. Fluid within the visualized sinuses and mastoids is not seen A cervical fracture is not visualized. No dislocation is noted. Spondylosis. Minimal chronic depression deformity T2 vertebral body IMPRESSION: No acute intracranial abnormality is seen. A cervical fracture is not visualized. If the patient continues to have symptoms to suggest intracranial /spinal cord pathology then MRI wou ld be recommended
--- NOTE | 2023-11-30 14:49 | EDPHYS ---
Physician Documentation [facility] Name: Ning Coffey Age: 78 yrs Sex: Female : 1945 Arrival Date: 11/30/2023 Time: 13:22 Bed 11 Private MD: ED Physician Skyler Mcgarry HPI: 11/29 14:49 This 78 yrs old Female presents to ER via Ambulatory with complaints of Fall Injury, ms3 Eye Injury, Eye Swelling. 14:49 78-year-old female with past medical history of stroke presents to the emergency ms3 department after falling when her lost his balance and she tried to catch him. Patient states when they were falling the walker wheel hit her in the head. Patient denies loss of consciousness. Patient endorses taking Xarelto. Patient states her right orbit is swollen and the pain is a 10/10 and throbbing. Historical: - Allergies: 13:33 Levaquin; mb9 13:33 Polysporin; mb9 13:33 Sulfa (Sulfonamide Antibiotics); mb9 - Home Meds: 13:33 Xarelto Oral [Active]; mb9 14:36 Carbidopa-Levodopa Oral [Active]; tl4 - PMHx: 13:33 CVA; Parkinsons; mb9 - PSHx: 13:33 hysterectomy; Splenectomy; mb9 - Immunization history:: Adult Immunizations up to date. - Social history:: Smoking status: Patient denies any tobacco usage or history of. ROS: 14:49 Constitutional: Negative for fever, and chills. Neck: Negative for injury, pain, and ms3 swelling, Cardiovascular: Negative for chest pain, and palpitations. Respiratory: Negative for shortness of breath, cough, wheezing, and pleuritic chest pain, Abdomen/GI: Negative for abdominal pain, nausea, vomiting, diarrhea, and constipation, 14:49 Skin: Positive for ecchymosis, Exam: 14:49 Constitutional: This is a well developed, well nourished patient who is awake, alert, ms3 and in no acute distress. Neck: Trachea midline, no cervical lymphadenopathy. Supple, full range of motion without nuchal rigidity, or vertebral point tenderness. No Meningismus. Chest/axilla: Normal chest wall appearance and motion. Nontender with no deformity. Cardiovascular: Regular rate and rhythm with a normal S1 and S2. No gallops, murmurs, or rubs. Normal PMI, no JVD. No pulse deficits. Respiratory: Lungs have equal breath sounds bilaterally, clear to auscultation and percussion. No rales, rhonchi or wheezes noted. No increased work of breathing, no retractions or nasal flaring. Abdomen/GI: Soft, non-tender, with normal bowel sounds. No distension or tympany. No guarding or rebound. No evidence of tenderness throughout. 14:49 Head/face: Noted is contusion, that is deep, of the right eye and right cheek, Vital Signs: 13:34 BP 122 / 72; Pulse 78; Resp 16; Temp 98; Pulse Ox 96% on R/A; Weight 70.31 kg; Height 5 mb9 ft. 5 in. ; 14:34 BP 140 / 94; Pulse 105; Resp 18; Pulse Ox 100% on R/A; tl4 15:26 BP 131 / 88; Pulse 92; Resp 18; Temp 97.9(TE); Pulse Ox 98% on R/A; Pain 8/10; tl4 13:34 Body Mass Index 25.79 (70.31 kg, 165.1 cm) mb9 15:26 Pain Scale: Adult tl4 MDM: 13:46 Patient medically screened. ms3 14:49 Differential diagnosis: closed head injury, contusion, fracture. Data reviewed: vital ms3 signs, nurses notes, radiologic studies, and as a result, I will discharge patient. I considered the following discharge prescriptions or medication management in the emergency department Medications were administered in the Emergency Department. See MAR. Independent interpretation of the following test(s) in the Emergency Department CT Scan: My interpretation is CT head without contrast images reviewed do not reveal intracranial hemorrhage. Counseling: I had a detailed discussion with the patient and/or guardian regarding the historical points, exam findings, and any diagnostic results supporting the discharge/admit diagnosis, radiology results, the need for outpatient follow up, to return to the emergency department if symptoms worsen or persist or if there are any questions or concerns that arise at home. Special discussion: I discussed with the patient/guardian in detail that at this point there is no indication for admission to the hospital. It is understood, however, that if the symptoms persist or worsen the patient needs to return immediately for re-evaluation. ED course: Discussed imaging results with patient. Discussed symptomatic care of hematoma. Patient to follow-up with primary care physician in 2 to 3 days. Patient understands and agrees with plan. All questions were answered. Return precautions discussed include worsening symptoms, or any other concerns. On reevaluation patient is alert and oriented x 4, no apparent distress, nontoxic-appearing, speaking full sentences.. 11/29 13:44 Order name: CT Head C Spine; Complete Time: 14:36 ms3 Administered Medications: 15:16 Drug: HYDROcodone-acetaminophen PO 5 mg-325 mg 1 tabs PO once Route: PO; tl4 15:25 Follow up: Response: No adverse reaction; Medication administered at discharge. tl4 Disposition Summary: 11/30/23 14:48 Discharge Ordered Notes: Location: Home ms3 Condition: Stable ms3 Diagnosis - Hematoma ms3 - Fall on same level from slipping, tripping and stumbling with subsequent striking ms3 against object Followup: ms3 - With: Private Physician - When: 2 - 3 days - Reason: Recheck today's complaints Discharge Instructions: - Discharge Summary Sheet ms3 - Hematoma, [id number] ms3 - Fall Prevention in the Home, Adult ms3 Forms: - Medication Reconciliation Form ms3 - Thank You Letter ms3 - Antibiotic Education ms3 - Prescription Opioid Use ms3 - Patient Portal Instructions ms3 - Leadership Thank You Letter ms3 Signatures: Dispatcher [employer] EDSkyler Cage DO DO ms3 Sofia Barrera RN RN mb9 Mitchell Baker RN RN tl4
--- NOTE | 2023-11-30 14:49 | ER ---
Nurse's Notes [facility] Name: Ning Coffey Age: 78 yrs Sex: Female : 1945 Arrival Date: 11/30/2023 Time: 13:22 Bed 11 Private MD: Diagnosis: Hematoma;Fall on same level from slipping, tripping and stumbling with subsequent striking against object Presentation: 11/29 13:34 Chief complaint: Patient states: "I was helping my up and he started to fall. mb9 His walker hit me in the right eye and I fell with him. I didn't hit my head and no LOC. I am on Xarelto and my right eye is swollen/bruised now". Coronavirus screen: At this time, the client does not indicate any symptoms associated with coronavirus-19. Ebola Screen: No symptoms or risks identified at this time. Initial Sepsis Screen: Does the patient meet any 2 criteria? No. Patient's initial sepsis screen is negative. Does the patient have a suspected source of infection? No. Patient's initial sepsis screen is negative. Risk Assessment: Do you want to hurt yourself or someone else? Patient reports no desire to harm self or others. Onset of symptoms was November 30, 2023. 13:34 Method Of Arrival: Ambulatory mb9 13:34 Acuity: DANIELLE 3 mb9 Triage Assessment: 13:34 General: Appears in no apparent distress. Behavior is calm, cooperative. Pain: mb9 Complains of pain in face. Derm: Bruising that is dark purple, on right eye. Musculoskeletal: Swelling present in right eye. Historical: - Allergies: 13:33 Levaquin; mb9 13:33 Polysporin; mb9 13:33 Sulfa (Sulfonamide Antibiotics); mb9 - Home Meds: 13:33 Xarelto Oral [Active]; mb9 14:36 Carbidopa-Levodopa Oral [Active]; tl4 - PMHx: 13:33 CVA; Parkinsons; mb9 - PSHx: 13:33 hysterectomy; Splenectomy; mb9 - Immunization history:: Adult Immunizations up to date. - Social history:: Smoking status: Patient denies any tobacco usage or history of. Screenin:34 [facility] ED Fall Risk Assessment (Adult) History of falling in the last 3 months, tl4 including since admission No falls in past 3 months (0 pts) Confusion or Disorientation No (0 pts) Intoxicated or Sedated No (0 pts) Impaired Gait No (0 pts) Mobility Assist Device Used No (0 pt) Altered Elimination No (0 pt) Score/Fall Risk Level 0 - 2 = Low Risk Oriented to surroundings, Maintained a safe environment, Educated pt \\T\\ family on fall prevention, incl call for assistance when getting out of bed, Assessed \\T\\ reinforced patient's understanding of fall precautions, Hourly rounding (assess needs \\T\\ fall precautionary measures) done, Used ambulatory aids as needed (educated on \\T\\ assisted with), Used gait belt as appropriate. Abuse screen: Denies threats or abuse. Denies injuries from another. Nutritional screening: No deficits noted. Tuberculosis screening: No symptoms or risk factors identified. Assessment: 13:55 General: Appears in no apparent distress. Behavior is calm, cooperative. Pain: tl4 Complains of pain in face. Neuro: Level of Consciousness is awake, alert, obeys commands, Oriented to person, place, time, situation, Public Works Inspector are equal bilaterally Moves all extremities. Gait is steady, Speech is normal, Facial symmetry appears normal. Cardiovascular: Capillary refill < 3 seconds Patient's skin is warm and dry. Respiratory: Airway is patent Trachea midline Respiratory effort is even, unlabored, Respiratory pattern is regular, symmetrical, Breath sounds are clear bilaterally. GI: No deficits noted. No signs and/or symptoms were reported involving the gastrointestinal system. : No deficits noted. No signs and/or symptoms were reported regarding the genitourinary system. EENT: Reports decreased vision. Derm: No signs and/or symptoms reported regarding the dermatologic system. Musculoskeletal: discoloration to right side of face. 14:40 Reassessment: No changes from previously documented assessment. Patient and/or family tl4 updated on plan of care and expected duration. Pain level reassessed. Patient is alert, oriented x 3, equal unlabored respirations, skin warm/dry/pink. Vital Signs: 13:34 BP 122 / 72; Pulse 78; Resp 16; Temp 98; Pulse Ox 96% on R/A; Weight 70.31 kg; Height 5 mb9 ft. 5 in. ; 14:34 BP 140 / 94; Pulse 105; Resp 18; Pulse Ox 100% on R/A; tl4 15:26 BP 131 / 88; Pulse 92; Resp 18; Temp 97.9(TE); Pulse Ox 98% on R/A; Pain 8/10; tl4 13:34 Body Mass Index 25.79 (70.31 kg, 165.1 cm) mb9 15:26 Pain Scale: Adult tl4 ED Course: 13:24 Patient arrived in ED. im 13:30 Skyler Mcgarry DO is Attending Physician. ms3 13:33 Arm band placed on. mb9 13:35 Triage completed. mb9 13:47 Mitchell Baker, RN is Primary Nurse. tl4 13:58 CT Head C Spine In Process Unspecified. EDMS 14:05 Warm blanket given. tl4 14:35 Patient has correct armband on for positive identification. Bed in low position. Call tl4 light in reach. Side rails up X2. Adult w/ patient. Provided Education on: ED process. Client placed on continuous cardiac and pulse oximetry monitoring. NIBP monitoring applied. Door closed. Noise minimized. Lights dimmed. Moved to private room. Warm blanket given. 14:36 No provider procedures requiring assistance completed. Patient did not have IV access tl4 during this emergency room visit. Administered Medications: 15:16 Drug: HYDROcodone-acetaminophen PO 5 mg-325 mg 1 tabs PO once Route: PO; tl4 15:25 Follow up: Response: No adverse reaction; Medication administered at discharge. tl4 Medication: 14:34 VIS not applicable for this client. tl4 Outcome: 14:48 Discharge ordered by MD. ms3 15:26 Discharged to home via wheelchair, with family, tl4 15:26 Condition: stable 15:26 Discharge instructions given to patient, Instructed on discharge instructions, follow up and referral plans. medication usage, Demonstrated understanding of instructions, follow-up care, medications, 15:27 Patient left the ED. tl4 Signatures: Dispatcher [employer] EDMS Skyelr Mcgarry DO DO ms3 Sofia Barrera, RN RN mb9 Dona Miller Mitchell Baker, CHIDI RN tl4
[2023-11-30 15:46] VITALS: BP 131/88; TEMP 97.9; O2SAT 98
== END ==
LOC: ER 13:22
DX: S00.11XA Contusion of right eyelid and periocular area, initial encounter (principal); W01.198A Fall on same level from slipping, tripping and stumbling with subsequent striking against other object, initial encounter; Z86.73 Personal history of transient ischemic attack (TIA), and cerebral infarction without residual deficits; Z79.01 Long term (current) use of anticoagulants; G20.A1 Parkinson's disease without dyskinesia, without mention of fluctuations; Z88.1 Allergy status to other antibiotic agents; Z88.2 Allergy status to sulfonamides
CPT/HCPCS: 70450; 72125; 99283

== ENCOUNTER 2024-07-16 07:30 | Emergency (ER) | payer OTHER ==
[2024-07-16] MEDS ORDERED: HYDROCODONE/APAP 5/325 MG TAB ONE (07:57)
--- NOTE | 2024-07-16 08:59 | RAD REPORT ---
Exam:Hand Right 3 View HISTORY: Right hand pain FINDINGS: Mildly displaced fracture proximal aspect of the fifth proximal phalanx. No dislocation
--- NOTE | 2024-07-16 09:08 | ER ---
Nurse's Notes [facility] Name: Ning Coffey Age: 78 yrs Sex: Female : 1945 Arrival Date: 07/16/2024 Time: 07:30 Bed 14 Private MD: Diagnosis: Fracture of proximal fifth phalanx Presentation: 07/16 07:41 Chief complaint: Right hand pain 8/10 and bruising after mechanical fall from standing hb last night. Pt was attempting to sit on couch and missed. Coronavirus screen: At this time, the client does not indicate any symptoms associated with coronavirus-19. Ebola Screen: No symptoms or risks identified at this time. Initial Sepsis Screen: Does the patient meet any 2 criteria? No. Patient's initial sepsis screen is negative. Does the patient have a suspected source of infection? No. Patient's initial sepsis screen is negative. Risk Assessment: Do you want to hurt yourself or someone else? Patient reports no desire to harm self or others. Onset of symptoms was July 15, 2024. 07:41 Method Of Arrival: Ambulatory hb 07:41 Acuity: DANIELLE 4 hb Triage Assessment: 09:45 Injury Description: Bruise sustained to right hand. db Historical: - Allergies: 07:44 Levaquin; hb 07:44 Polysporin; hb 07:44 Sulfa (Sulfonamide Antibiotics); hb - PMHx: 07:44 CVA; Parkinsons; hb - PSHx: 07:44 hysterectomy; Splenectomy; hb - Immunization history:: Adult Immunizations up to date. - Infectious Disease History:: Denies. - Social history:: Smoking status: Patient denies any tobacco usage or history of. - Family history:: not pertinent. Screenin:09 [facility] ED Fall Risk Assessment (Adult) History of falling in the last 3 months, db including since admission Yes- single mechanical fall (1 pt) Confusion or Disorientation No (0 pts) Intoxicated or Sedated No (0 pts) Impaired Gait No (0 pts) Mobility Assist Device Used No (0 pt) Altered Elimination No (0 pt) Score/Fall Risk Level 0 - 2 = Low Risk Oriented to surroundings, Maintained a safe environment. Abuse screen: Denies threats or abuse. Denies injuries from another. Nutritional screening: No deficits noted. Tuberculosis screening: No symptoms or risk factors identified. Assessment: 08:08 Reassessment: Patient appears in no apparent distress at this time. Patient and/or db family updated on plan of care and expected duration. Pain level reassessed. Patient is alert, oriented x 3, equal unlabored respirations, skin warm/dry/pink. General: Appears in no apparent distress. comfortable, Behavior is calm, cooperative. Pain: Complains of pain in right hand. Neuro: Level of Consciousness is awake, alert, obeys commands, Oriented to person, place, time, situation. Respiratory: Airway is patent Respiratory effort is even, unlabored, Respiratory pattern is regular, symmetrical. Derm: Bruising that is dark purple, on right hand. Musculoskeletal: Circulation, motion, and sensation intact. Capillary refill < 3 seconds, Range of motion: intact in all extremities, Swelling present in right hand. 09:43 Reassessment: Patient appears in no apparent distress at this time. Patient and/or db family updated on plan of care and expected duration. Pain level reassessed. Patient is alert, oriented x 3, equal unlabored respirations, skin warm/dry/pink. NEURO INTACT. General: Appears in no apparent distress. comfortable, Behavior is calm, cooperative, appropriate for age. General: Appears. Vital Signs: 07:41 BP 150 / 90; Pulse 76; Resp 16; Temp 97.8; Pulse Ox 96% on R/A; Weight 62.6 kg; Height hb 5 ft. 3 in. ; Pain 8/10; 09:00 BP 132 / 90; Pulse 59; Resp 16; Pulse Ox 96% on R/A; db 07:41 Body Mass Index 24.45 (62.60 kg, 160.02 cm) hb 07:41 Pain Scale: Adult hb ED Course: 07:33 Patient arrived in ED. mg5 07:33 Ash Cardenas MD is Attending Physician. rt 07:44 Triage completed. hb 07:44 Arm band placed on. hb 07:55 Marlene Jasso, RN is Primary Nurse. db 08:09 Patient has correct armband on for positive identification. Bed in low position. Call db light in reach. Side rails up X 1. Pulse ox on. NIBP on. Pillow given. 08:22 Hand Right 3 View XRAY In Process Unspecified. EDMS 09:38 Aluminum finger splint applied to little finger right hand. em1 09:43 Provided Education on: DISCHARGE AND FOLLOWUP. db :43 No provider procedures requiring assistance completed. Patient did not have IV access db during this emergency room visit. Administered Medications: 08:00 Drug: HYDROcodone-acetaminophen PO 5 mg-325 mg 1 tabs PO once Route: PO; db 09:00 Follow up: Response: No adverse reaction db Medication: 08:09 VIS not applicable for this client. db Outcome: :08 Discharge ordered by . rt : Discharged to home ambulatory, with family, db : Condition: stable :43 Discharge instructions given to patient, family, Instructed on discharge instructions, follow up and referral plans. :45 Patient left the ED. db Signatures: Dispatcher [employer] EDMS Jose Abel em1 Brandi Castillo, CHIDI RN Marlene Kerr RN RN db Ash Cardenas MD MD rt Martha Hutchins mg5
--- NOTE | 2024-07-16 09:09 | EDPHYS ---
Physician Documentation [facility] Name: Ning Coffey Age: 78 yrs Sex: Female : 1945 Arrival Date: 07/16/2024 Time: 07:30 Bed 14 Private MD: ED Physician Ash Cardenas HPI: 07/16 09:55 This 78 yrs old Female presents to ER via Ambulatory with complaints of Hand Injury. rt 09:55 Patient presents to the ED with an injury to the right hand. Patient states that around rt 1:00, she went to sit down on a couch, she missed the couch hitting her hand on the ground bending her fingers backwards. Denies other injury, acute complaints, symptoms are aching nature, nonradiating, mild in severity, no other aggravating or alleviating factors.. Historical: - Allergies: 07:44 Levaquin; hb 07:44 Polysporin; hb 07:44 Sulfa (Sulfonamide Antibiotics); hb - PMHx: 07:44 CVA; Parkinsons; hb - PSHx: 07:44 hysterectomy; Splenectomy; hb - Immunization history:: Adult Immunizations up to date. - Infectious Disease History:: Denies. - Social history:: Smoking status: Patient denies any tobacco usage or history of. - Family history:: not pertinent. ROS: 09:55 Constitutional: Negative for fever, chills, and weight loss, Cardiovascular: Negative rt for chest pain, palpitations, and edema, Respiratory: Negative for shortness of breath, cough, wheezing, and pleuritic chest pain, Abdomen/GI: Negative for abdominal pain, nausea, vomiting, diarrhea, and constipation, Neuro: Negative for headache, weakness, numbness, tingling, and seizure, 09:55 MS/extremity: Positive for contusion, pain, Exam: 09:55 Constitutional: This is a well developed, well nourished patient who is awake, alert, rt and in no acute distress. Head/Face: Normocephalic, atraumatic. Chest/axilla: Normal chest wall appearance and motion. Nontender with no deformity. No lesions are appreciated. Cardiovascular: Regular rate and rhythm with a normal S1 and S2. No gallops, murmurs, or rubs. Normal PMI, no JVD. No pulse deficits. Respiratory: Lungs have equal breath sounds bilaterally, clear to auscultation and percussion. No rales, rhonchi or wheezes noted. No increased work of breathing, no retractions or nasal flaring. Abdomen/GI: Soft, non-tender, with normal bowel sounds. No distension or tympany. No guarding or rebound. No evidence of tenderness throughout. 09:55 Musculoskeletal/extremity: Bruising noted over the right first metacarpal, fourth and fifth digits proximally. No deformities noted, no tenderness on the wrist, elbow, good diamond sizer and sorter strength, full range of motion, pulses, motor, sensation intact. Vital Signs: 07:41 BP 150 / 90; Pulse 76; Resp 16; Temp 97.8; Pulse Ox 96% on R/A; Weight 62.6 kg; Height hb 5 ft. 3 in. ; Pain 8/10; 09:00 BP 132 / 90; Pulse 59; Resp 16; Pulse Ox 96% on R/A; db 07:41 Body Mass Index 24.45 (62.60 kg, 160.02 cm) hb 07:41 Pain Scale: Adult hb MDM: 07:40 Medical Screening Exam initiated rt 09:55 Differential diagnosis: Fracture, contusion, sprain. Data reviewed: vital signs, nurses rt notes, radiologic studies. I considered the following discharge prescriptions or medication management in the emergency department Medications were administered in the Emergency Department. See MAR. Independent interpretation of the following test(s) in the Emergency Department X-Ray: My interpretation is Phalanx fracture seen on my interpretation of x-ray images. Counseling: I had a detailed discussion with the patient and/or guardian regarding the historical points, exam findings, and any diagnostic results supporting the discharge/admit diagnosis, radiology results, the need for outpatient follow up, to return to the emergency department if symptoms worsen or persist or if there are any questions or concerns that arise at home. Response to treatment: the patient's symptoms have markedly improved after treatment. 07/16 07:44 Order name: Hand Right 3 View XRAY; Complete Time: 09:03 rt 07/16 09:07 Order name: Finger Splint; Complete Time: 09:38 rt Administered Medications: 08:00 Drug: HYDROcodone-acetaminophen PO 5 mg-325 mg 1 tabs PO once Route: PO; db 09:00 Follow up: Response: No adverse reaction db Disposition Summary: 11/09/24 09:08 Discharge Ordered Notes: Location: Home rt Problem: new rt Symptoms: have improved rt Condition: Stable rt Diagnosis - Fracture of proximal fifth phalanx rt Followup: rt - With: Private Physician - When: 5 - 6 days - Reason: Discharge Instructions: - Discharge Summary Sheet rt - Finger Fracture, Adult rt Forms: - Medication Reconciliation Form rt - Antibiotic Education rt - Prescription Opioid Use rt - Patient Portal Instructions rt - Leadership Thank You Letter rt Signatures: Dispatcher [employer] Brandi Ritter, RN RN Marlene Kerr, RN RN db Ash Cardenas MD MD rt
[2024-07-16 09:50] VITALS: TEMP 97.8; O2SAT 96
[2024-07-16 09:51] VITALS: BP 132/90
== END 2024-07-16 09:45 | disposition home or self-care (01) ==
LOC: ER 07:30
PROC: 2W3JX1Z Immobilization of Right Finger using Splint (ICD-10-PCS; principal; 2024-07-16)
DX: S62.616A Displaced fracture of proximal phalanx of right little finger, initial encounter for closed fracture (principal)
CPT/HCPCS: 99284

== ENCOUNTER 2024-09-28 13:33 | Emergency (ER) | payer OTHER ==
--- NOTE | 2024-09-28 14:41 | RAD REPORT ---
EXAMINATION: ONE VIEW CHEST XR CLINICAL INDICATION: CHEST PAIN TECHNIQUE: Frontal chest projection is submitted. Examination is limited by patient positioning and t echnique. COMPARISON: 09/11/2020 FINDINGS: The lungs are well inflated and clear. The heart is upper limit of normal in size. No displaced fract ures identified. IMPRESSION: No acute intrathoracic abnormalities.
[2024-09-28 15:08] LABS: Absolute Basophils 0.1 K/uL (0-0.5); Absolute Eosinophils 0.2 K/uL (0-0.5); Absolute Lymphocytes (CBC) 1.9 K/uL (0.7-4.9); Absolute Monocytes 1.7 K/uL (0.1-1.3); Basophils % 0.6 % (0-1.3); Eosinophils % 1.4 % (0-4.4); Hematocrit 42.2 % (36.0-45.0); Hemoglobin 14.1 g/dL (12.0-15.0); Lymphocytes % 17.6 % (15.3-44.8); MCH 32.4 pg (27.0-35.0); MCHC 33.3 g/dL (32.0-36.0); MCV 97.2 fL (80-100); MPV 10.2 fL (7.6-11.3); Monocytes % 15.5 % (3.3-12.3); Neutrophils % 64.9 % (41.7-73.7); Nucleated Red Blood Cells % 0.1 % (0-0); Platelets 220 thou/uL (152-406); RBC Red Blood Cell Count 4.34 M/uL (3.86-4.86); Red Cell Distribution Width 13.9 % (12.1-15.2)
[2024-09-28] MEDS ORDERED: KETOROLAC 30 MG/ML INJ ONE (15:18)
[2024-09-28] MEDS ORDERED: DIAZEPAM 10 MG/2 ML INJ SYRINGE ONE (15:18)
[2024-09-28 15:25] LABS: Anion Gap 8.2 mEq/L (5.0-15.0); Troponin High Sensitivity 6.2 pg/mL (<58.9)
[2024-09-28 15:26] LABS: Potassium 4.2 mEq/L (3.5-5.1)
--- NOTE | 2024-09-28 15:47 | EDPHYS ---
Physician Documentation [facility] Name: Ning Coffey Age: 78 yrs Sex: Female : 1945 Arrival Date: 09/28/2024 Time: 13:33 Bed 16 Private MD: ED Physician Raymond Beach HPI: 09/28 13:45 This 78 yrs old Female presents to ER via Wheelchair with complaints of Chest ec2 Pain, Anxiety. 13:45 Patient with a history of anxiety as well as parkinsonism arrives today for chest pain. ec2 Reports that she is been having several days of symptoms. Reports no shortness of breath.No specific alleviating or exacerbating factors.. Historical: - Allergies: 13:39 Levaquin; ld1 13:39 Polysporin; ld1 13:39 Sulfa (Sulfonamide Antibiotics); ld1 - PMHx: 13:39 CVA; Parkinsons; Anxiety; ld1 - PSHx: 13:39 hysterectomy; Splenectomy; ld1 - Immunization history:: Adult Immunizations up to date. - Infectious Disease History:: Denies. - Social history:: Smoking status: Patient denies any tobacco usage or history of. ROS: 13:45 Constitutional: as per hpi ec2 Exam: 13:45 Constitutional: GEN: NAD Head: atraumatic Eyes: EOMI Ears: External ears are ec2 normal. CV: regular rate LUNGS: no respiratory distress ABD: non-distended SKIN: no evidence of rashes MSK: no evidence of trauma Vital Signs: 13:38 Pulse 79; Resp 18; Temp 97.8(TE); Pulse Ox 98% on R/A; Height 5 ft. 4 in. ; Pain 8/10; ld1 13:38 BP 150 / 110; ld1 16:07 BP 135 / 86; Pulse 76; Resp 17; Pulse Ox 98% ; Pain 0/10; ll1 13:38 Pain Scale: Adult ld1 16:07 Pain Scale: Adult ll1 MDM: 13:34 Medical Screening Exam initiated ec2 13:45 Data reviewed: vital signs, nurses notes. ED course: Patient arrives today for ec2 evaluation of chest pain. Examination is unrevealing. Patient reports history of anxiety, will treat for such as well as pain. Will obtain cardiac profile.. 14:51 ED course: EKG independently reviewed and interpreted by me, shows atrial fibrillation, ec2 rate of 87, no acute ST segment elevations, intervals are nonactionable.. 15:46 ED course: Troponin within normal ranges. CBC reassuring, metabolic profile is ec2 nonactionable. I suspect anxiety causing patient's symptoms today. Will discharge home. Return precautions given.. 09/28 13:39 Order name: Basic Metabolic Panel; Complete Time: 15:45 ec2 09/28 13:39 Order name: CBC with Diff; Complete Time: 15:45 ec2 09/28 13:39 Order name: Troponin HS; Complete Time: 15:45 ec2 09/28 13:39 Order name: XRAY Chest (1 view); Complete Time: 15:07 ec2 09/28 13:39 Order name: Cardiac monitoring; Complete Time: 14:53 ec2 09/28 13:39 Order name: EKG - Nurse/Tech; Complete Time: 14:53 ec2 09/28 13:39 Order name: IV Saline Lock; Complete Time: 14:53 ec2 09/28 13:39 Order name: Labs collected and sent; Complete Time: 14:53 ec2 09/28 13:39 Order name: O2 Per Protocol; Complete Time: 14:53 ec2 09/28 13:39 Order name: O2 Sat Monitoring; Complete Time: 14:53 ec2 Administered Medications: 15:28 Drug: Diazepam IVP 2 mg IVP once Route: IVP; Site: right forearm; cm10 16:10 Follow up: Response: No adverse reaction; Anxiety decreased; RASS: Alert and Calm (0) ll1 15:28 Drug: Ketorolac IVP 15 mg IVP once Route: IVP; Site: right forearm; cm10 16:10 Follow up: Response: No adverse reaction ll1 Disposition Summary: 09/28/24 15:47 Discharge Ordered Notes: Location: Home ec2 Condition: Stable ec2 Diagnosis - Generalized anxiety disorder ec2 Followup: ec2 - With: Private Physician - When: - Reason: Re-evaluation by your physician Discharge Instructions: - Discharge Summary Sheet ec2 - Panic Attack, [id number] ec2 Forms: - Medication Reconciliation Form ec2 - Antibiotic Education ec2 - Prescription Opioid Use ec2 - Patient Portal Instructions ec2 - Leadership Thank You Letter ec2 Prescriptions: - Meclizine 25 mg Oral Tablet - take 1 tablet ORAL route every 8 hours As needed; 30 tablet; Refills: 0, ec2 Product Selection Permitted Signatures: Dispatcher [employer] EDMeena Cage RN RN ld1 Ebony Abel RN RN cm10 Raymond Beach MD MD ec2 Brigid Cat RN ll1 Corrections: (The following items were deleted from the chart) 13:39 13:39 BASIC METABOLIC PANEL+C.LAB.BRZ ordered. EDMS EDMS 13:39 13:39 CBC+H.LAB.BRZ ordered. EDMS EDMS 13:39 13:39 Troponin High Sensitivity+C.LAB.BRZ ordered. EDMS EDMS 13:39 13:39 Chest Single View+RAD.RAD.BRZ ordered. EDMS EDMS 13:45 13:45 Patient with a history of anxiety as well as parkinsonism arrives today for chest ec2 pain. Reports that she is been having several days of symptoms. Reports no shortness of breath.. ec2
--- NOTE | 2024-09-28 15:47 | ER ---
Nurse's Notes [facility] Name: Ning Coffey Age: 78 yrs Sex: Female : 1945 Arrival Date: 09/28/2024 Time: 13:33 Bed 16 Private MD: Diagnosis: Generalized anxiety disorder Presentation: 09/28 13:38 Chief complaint: Patient states: Chest pain X 1 day. Coronavirus screen: At this time, ld1 the client does not indicate any symptoms associated with coronavirus-19. Ebola Screen: No symptoms or risks identified at this time. Initial Sepsis Screen: Does the patient meet any 2 criteria? No. Patient's initial sepsis screen is negative. Does the patient have a suspected source of infection? No. Patient's initial sepsis screen is negative. Risk Assessment: Do you want to hurt yourself or someone else? Patient reports no desire to harm self or others. Onset of symptoms was September 28, 2024. 13:38 Method Of Arrival: Wheelchair ld1 13:38 Acuity: DANIELLE 3 ld1 Triage Assessment: 13:39 General: Appears in no apparent distress. comfortable, Behavior is calm, cooperative, ld1 appropriate for age. Pain: Complains of pain in chest Pain does not radiate. Pain currently is 8 out of 10 on a pain scale. Quality of pain is described as throbbing, Pain began 1 day ago. Is continuous. EENT: No signs and/or symptoms were reported regarding the EENT system. Neuro: Level of Consciousness is awake, alert, obeys commands, Oriented to person, place, time, situation. Cardiovascular: Capillary refill < 3 seconds Patient's skin is warm and dry. Respiratory: Airway is patent Respiratory effort is even, unlabored. GI: Abdomen is round non-distended. : No signs and/or symptoms were reported regarding the genitourinary system. Derm: No signs and/or symptoms reported regarding the dermatologic system. Musculoskeletal: No signs and/or symptoms reported regarding the musculoskeletal system. Historical: - Allergies: 13:39 Levaquin; ld1 13:39 Polysporin; ld1 13:39 Sulfa (Sulfonamide Antibiotics); ld1 - PMHx: 13:39 CVA; Parkinsons; Anxiety; ld1 - PSHx: 13:39 hysterectomy; Splenectomy; ld1 - Immunization history:: Adult Immunizations up to date. - Infectious Disease History:: Denies. - Social history:: Smoking status: Patient denies any tobacco usage or history of. Screenin:08 [facility] ED Fall Risk Assessment (Adult) History of falling in the last 3 months, ll1 including since admission No falls in past 3 months (0 pts) Confusion or Disorientation No (0 pts) Intoxicated or Sedated No (0 pts) Impaired Gait Yes (1 pt) Mobility Assist Device Used Yes (1 pt) Altered Elimination No (0 pt) Score/Fall Risk Level 0 - 2 = Low Risk Maintained a safe environment, Hourly rounding (assess needs \T\ fall precautionary measures) done. Abuse screen: Denies threats or abuse. Nutritional screening: No deficits noted. Tuberculosis screening: No symptoms or risk factors identified. Assessment: 14:14 Reassessment: Patient and/or family updated on plan of care and expected duration. Pain ll1 level reassessed. 16:07 Reassessment: No changes from previously documented assessment. Patient and/or family ll1 updated on plan of care and expected duration. Pain level reassessed. Patient is alert, oriented x 3, equal unlabored respirations, skin warm/dry/pink. Vital Signs: 13:38 Pulse 79; Resp 18; Temp 97.8(TE); Pulse Ox 98% on R/A; Height 5 ft. 4 in. ; Pain 8/10; ld1 13:38 BP 150 / 110; ld1 16:07 BP 135 / 86; Pulse 76; Resp 17; Pulse Ox 98% ; Pain 0/10; ll1 13:38 Pain Scale: Adult ld1 16:07 Pain Scale: Adult ll1 ED Course: 13:34 Patient arrived in ED. ec2 13:34 Raymond Beach MD is Attending Physician. ec2 13:39 Triage completed. ld1 13:39 Arm band placed on right wrist. ld1 14:11 Ebony Abel, CHIDI is Primary Nurse. cm10 14:14 Patient placed in an exam room, on a stretcher. ll1 14:14 Door closed. Warm blanket given. ll1 14:15 Provided Education on: ER procedures and process. ll1 14:35 XRAY Chest (1 view) In Process Unspecified. EDMS 14:53 Basic Metabolic Panel Sent. cm10 14:53 CBC with Diff Sent. cm10 14:53 Troponin HS Sent. cm10 14:53 Initial lab(s) drawn, by me, sent to lab. EKG done, by ED staff, reviewed by Raymond Beach MD. Inserted saline lock: 20 gauge in right forearm, using aseptic technique. Blood collected. Flushed with 10 mL NS. 16:07 No provider procedures requiring assistance completed. IV discontinued, intact, ll1 bleeding controlled, No redness/swelling at site. Pressure dressing applied. 16:08 Patient has correct armband on for positive identification. Bed in low position. Call 1 light in reach. Client placed on continuous cardiac and pulse oximetry monitoring. NIBP monitoring applied. traffic monitor specialist on. Administered Medications: 15:28 Drug: Diazepam IVP 2 mg IVP once Route: IVP; Site: right forearm; cm10 16:10 Follow up: Response: No adverse reaction; Anxiety decreased; RASS: Alert and Calm (0) 1 15:28 Drug: Ketorolac IVP 15 mg IVP once Route: IVP; Site: right forearm; cm10 16:10 Follow up: Response: No adverse reaction ll1 Medication: 16:09 VIS not applicable for this client. ll1 Outcome: 15:47 Discharge ordered by . ec2 16:08 Discharged to home via wheelchair, 1 16:08 Condition: stable 16:08 Discharge instructions given to patient, family, Instructed on discharge instructions, follow up and referral plans. medication usage, Demonstrated understanding of instructions, follow-up care, medications, Prescriptions given X 1, 16:10 Patient left the ED. ll1 Signatures: Dispatcher [employer] Brigid Weber RN RN ll1 Meena Mcgarry RN RN ld1 Ebony Abel, RN RN Raymond Pena MD MD ec2
[2024-09-28 17:49] VITALS: TEMP 97.8; O2SAT 98
[2024-09-28 17:50] VITALS: BP 135/86
--- NOTE | 2024-09-30 15:12 | EKG ---
Test Date: 2024-09-28 Test Time: 14:49:21 General Assistant: NISHI MEASUREMENT RESULTS: Intervals: Rate: 87 HI: QRSD: 92 QT: 360 QTc: 433 [place]: P: HI: QRS: 17 T: 37 INTERPRETIVE STATEMENTS: Atrial fibrillation with a competing junctional pacemaker Abnormal ECG Compared to ECG 09/11/2020 14:59:36 ST (T wave) deviation no longer present Electronically Signed On 09-30-24 15:07:18 DIRECTOR INBOUND SALES by Dale Daniels
== END 2024-09-28 16:10 | disposition home or self-care (01) ==
LOC: ER 13:33
DX: F41.1 Generalized anxiety disorder (principal); G20.A1 Parkinson's disease without dyskinesia, without mention of fluctuations
CPT/HCPCS: 93005; 85025; 80048; 36415; 84484; 71045; 96375; 96374; 99285; J3360

== ENCOUNTER 2024-10-17 07:35 | Day surgery (SDC) | payer OTHER ==
[2024-10-13 15:18] LABS: Absolute Eosinophils 0.1 K/uL (0-0.5); Absolute Lymphocytes (CBC) 1.6 K/uL (0.7-4.9); Absolute Monocytes 1.1 K/uL (0.1-1.3); Absolute Neutrophil 5.2 K/uL (1.8-8.0); Basophils % 0.5 % (0-1.3); Eosinophils % 1.8 % (0-4.4); Hematocrit 40.2 % (36.0-45.0); Hemoglobin 13.6 g/dL (12.0-15.0); Lymphocytes % 19.9 % (15.3-44.8); MCH 32.4 pg (27.0-35.0); MCHC 33.7 g/dL (32.0-36.0); MCV 96.2 fL (80-100); MPV 10.3 fL (7.6-11.3); Monocytes % 13.2 % (3.3-12.3); Neutrophils % 64.6 % (41.7-73.7); Nucleated Red Blood Cells % 0.1 % (0-0); Platelets 236 thou/uL (152-406); RBC Red Blood Cell Count 4.18 M/uL (3.86-4.86)
[2024-10-13 15:19] LABS: PT Prothrombin Time 12.8 SECONDS (9.4-12.5); PTT, Activated Partial Thromb 29.2 SECONDS (24.3-36.9); Protime INR 1.22
--- NOTE | 2024-10-14 13:40 | EKG ---
Test Date: 2024-10-13 Test Time: 15:50:23 Cloth Desizing Range Operator Chief: PATT MEASUREMENT RESULTS: Intervals: Rate: 57 NM: QRSD: 96 QT: 426 QTc: 414 [place]: P: NM: QRS: 48 T: 71 INTERPRETIVE STATEMENTS: Atrial fibrillation with slow ventricular response Abnormal ECG Compared to ECG 09/28/2024 14:49:21 No significant changes Electronically Signed On 10-14-24 13:38:22 ORNAMENTAL PLASTERER HELPER by Dale Daniels
[2024-10-17] MEDS ORDERED: NA CHLORIDE 0.9% 500 ML ONE (07:44)
[2024-10-17] MEDS ORDERED: HEPARIN 10,000 UNIT/10 ML VIAL IV ONE (08:33)
[2024-10-17] MEDS ORDERED: MIDAZOLAM HCL 2 MG/2 ML INJ ONE (08:33)
[2024-10-17] MEDS ORDERED: HEPA 1000U/500MLS 2,000 UNIT/1,000 ML BAG IV ONE (08:33)
[2024-10-17] MEDS ORDERED: TICAGRELOR 90 MG TABLET PO ONE (08:34)
[2024-10-17] MEDS ORDERED: HEPARIN 5000 UNIT/ML 1 ML VIAL ONE (08:34)
[2024-10-17] MEDS ORDERED: NALOXONE 0.4 MG/ML VIAL ONE (08:34)
[2024-10-17] MEDS ORDERED: ATROPINE SULF 1 MG/10 ML SYR IV ONE (08:34)
[2024-10-17] MEDS ORDERED: CLOPIDOGREL 75 MG TABLET ONE (08:34)
[2024-10-17] MEDS ORDERED: ASPIRIN 325 MG TAB ONE (08:34)
[2024-10-17] MEDS ORDERED: FENTANYL CITR 100 MCG/2 ML ONE (08:34)
[2024-10-17] MEDS ORDERED: FLUMAZENIL 0.1 MG/ML (5 mL VIAL) IV ONE (08:35)
[2024-10-17] MEDS ORDERED: LIDOCAINE 1% 20 ML MDV ONE (08:37)
[2024-10-17] MEDS ORDERED: VERAPAMIL HCL 10 MG/4 ML VIAL IV ONE (09:30)
[2024-10-17] MEDS ORDERED: MORPHINE 4 MG/ML SYR ONE (11:33)
[2024-10-17 12:21] VITALS: TEMP 97.5
[2024-10-17 14:22] VITALS: BP 149/84; O2SAT 98
--- NOTE | 2024-10-17 21:13 | OP ---
Date of Procedure: 10/17/2024 Surgeon: Silvio Jennings Procedures Performed: 1. Left heart catheterization. 2. Selective coronary angiogram. Indication For Procedure: Abnormal stress test. Complications: None. Estimated Blood Loss: Less than 50 cc. Access: Right radial, closed by TR band and right common femoral artery, closed by Mynx. Sedation Time: 20 minutes with 2 of Versed and 50 of fentanyl. Description Of Procedure: After risks, benefits, and alternatives were explained to the patient, the patient agreed to proceed with the procedure and signed informed consent. The patient was brought b k to the qc lab technician, prepped and draped in sterile fashion. Time-out was performed. Sedation was ad ministered. Next, right radial access was obtained using ultrasound-guided micropuncture technique. [place] 4 catheter was advanced over a J-wire. The patient had a lot of spasm in her elbow, so we dec ided to get the right common femoral artery access with a 6-[place] sheath. JL4 catheter was advanced over J-wire to the aortic root. Selective angiogram of the left system was done. That catheter was later exchanged for a JR4 catheter to the LV cavity. LVEDP was obtained. Pullback did not show any gradient. Same catheter was used for selective angiogram of the right coronary systems. At the end of procedure, catheter was removed. Sheath was removed. Mynx was applied. Hemostasis achieved. Th e patient was moved back to recovery in stable condition. Findings: 1. Left main: Normal. 2. LAD: Proximal mild luminal regularities with mid 20% to 30% disease, then mild luminal irregulari ties. 3. Left circumflex: Normal. 4. RCA: Normal. Assessment And Plan: Mild mid left anterior descending disease. Plan will be to continue medical management. ZEFERINO/INEZ Voice ID: [id number] Report ID: [id number]
== END 2024-10-17 13:15 | disposition home or self-care (01) ==
LOC: CCL 07:35
PROVIDERS: ATTEND Internal Medicine Interventional Cardiology
DX: I25.10 Atherosclerotic heart disease of native coronary artery without angina pectoris (principal); I50.32 Chronic diastolic (congestive) heart failure; I48.21 Permanent atrial fibrillation; Z87.891 Personal history of nicotine dependence; Z79.01 Long term (current) use of anticoagulants; Z79.899 Other long term (current) drug therapy; Z88.1 Allergy status to other antibiotic agents; Z88.2 Allergy status to sulfonamides; Z88.8 Allergy status to other drugs, medicaments and biological substances
CPT/HCPCS: 93005; 85025; 80048; 36415; 85610; 85730; 93458; 76937; C1893; Q9966; J1644; J2003; J2250; J3010; J7040; C1760; 99152; 99153; J0461; J2310

== ENCOUNTER 2024-11-11 13:42 | Emergency (ER) | payer OTHER ==
[2024-11-11] MEDS ORDERED: FENTANYL CITR 100 MCG/2 ML ONE ×2 (14:10→15:39)
[2024-11-11] MEDS ORDERED: ONDANSETRON 4 MG/2 ML VIAL ONE ×2 (14:11→15:40)
[2024-11-11] MEDS ORDERED: NA CHLORIDE 0.9% 1,000 ML ONE (14:11)
[2024-11-11 14:31] LABS: Absolute Eosinophils 0.4 K/uL (0-0.5); Absolute Lymphocytes (CBC) 1.2 K/uL (0.7-4.9); Absolute Monocytes 1.5 K/uL (0.1-1.3); Absolute Neutrophil 9.2 K/uL (1.8-8.0); Basophils % 0.4 % (0-1.3); Eosinophils % 3.5 % (0-4.4); Hematocrit 36.3 % (36.0-45.0); Hemoglobin 12.1 g/dL (12.0-15.0); MCH 32.3 pg (27.0-35.0); MCHC 33.4 g/dL (32.0-36.0); MCV 96.5 fL (80-100); MPV 10.6 fL (7.6-11.3); Monocytes % 11.8 % (3.3-12.3); Neutrophils % 74.3 % (41.7-73.7); Nucleated Red Blood Cells % 0.1 % (0-0); Platelets 228 thou/uL (152-406); RBC Red Blood Cell Count 3.76 M/uL (3.86-4.86); Red Cell Distribution Width 14.1 % (12.1-15.2)
--- NOTE | 2024-11-11 14:39 | RAD REPORT ---
EXAMINATION: Forearm Right CLINICAL INDICATION: Female, 78 years old. PAIN COMPARISON: No prior exam. VIEWS: Two views FINDINGS: No acute fracture. No significant focal degenerative change. Other: n/a IMPRESSION: No acute osseous abnormality involving the right forearm.
--- NOTE | 2024-11-11 14:40 | RAD REPORT ---
EXAM: Chest Single View HISTORY: 78 years Female COUGH COMPARISON: 09/28/2024 FINDINGS: LUNGS/PLEURA: The left lung is clear. Decreased lung volumes on the right may be due to some areas of subsegmental atelectasis. No definite acute process. CARDIAC/MEDIASTINUM: Stable enlargement. UPPER ABDOMEN: No significant abnormality. BONES: No acute abnormality. LINES/TUBES/OTHER: N/A IMPRESSION: Question increased atelectasis in the right lung. The left lung is clear. A chest CT is pending at [facility] of interpretation.
[2024-11-11] MEDS ORDERED: CARBIDOPA/LEVODOPA 25/100 TAB PO ONE (15:46)
--- NOTE | 2024-11-11 15:55 | RAD REPORT ---
EXAM: Chest Abdomen Pelvis W Cont CLINICAL INDICATION: Female, 78 years TRAUMA TECHNIQUE: CT chest, abdomen and pelvis was performed, with IV contrast, as per department protocol. Axial, sagittal and coronal reconstructions were obtained. One or more of the following dose reduction techniques were used: Automated exposure control, adjustment of the mA and/or kV according to the patient size, and/or iterative reconstruction. Unless otherwise specified, incidental findings do not require dedicated imaging follow-up. [id number]. COMPARISON: CT head and neck 11/30/2023, CT abdomen/pelvis on 01/24/2021 FINDINGS: THORAX: LOWER NECK AND CHEST WALL: Multiple thyroid nodules, the largest measuring 1.7 cm. These have been se en on prior CTs going back to at least 2021. LUNGS AND AIRWAYS: Mild nodular and groundglass opacities are present in the right middle lobe and to lesser extent the right upper and right lower lobe. Discrete nodules present in the right middle lobe measuring 7 mm. No prior chest CT for comparison.Motion artifact limits evaluation for pulmonary nodule detection. PLEURA: No pleural effusion. No pneumothorax. MEDIASTINUM AND LYMPH NODES: No mediastinal mass or fluid collection. Normal size mediastinal, hilar, and axillary lymph nodes. THORACIC AORTA: No thoracic aortic aneurysm. Atherosclerotic changes are present. PULMONARY ARTERIES: Caliber is within normal limits. HEART: Mild cardiomegaly. Mild coronary artery calcifications.No significant pericardial effusion. ABDOMEN/PELVIS: UPPER GI: No significant abnormality. LIVER: Hyper attenuating lesion right hepatic lobe was present on the CT from 09/11/2020 and benign. GALLBLADDER/BILE DUCTS: No biliary ductal dilatation.? PANCREAS: No mass, ductal dilation, or rajeev-pancreatic fluid. SPLEEN: Splenectomy ADRENALS: No adrenal masses. KIDNEYS AND URETERS: No hydronephrosis.No suspicious renal mass.No renal calculi. ABDOMINAL AORTA AND OTHER VESSELS: Mild atherosclerotic changes. PERITONEUM: No abnormal free fluid. No free air. LYMPH NODES: No pathologic lymphadenopathy. ABDOMINAL WALL: Unremarkable SMALL BOWEL/COLON: Small bowel has normal course and caliber. No colonic wall thickening or pericolon ic inflammatory changes.Normal appendix. Mild diverticulosis without diverticulitis. Mild formed colonic stool burden. URINARY BLADDER: Underdistended but grossly unremarkable. REPRODUCTIVE ORGANS: Uterus surgically absent. No adnexal abnormality. COMBINED: MUSCULOSKELETAL: Mild compression deformities are present at T2, T3, T8 which are favored chronic. Ri b fractures involving the right second, third, fourth, fifth, sixth, seventh, and eighth ribs. The right third fourth and fifth rib fractures are segmental. The rib fractures are most displaced by one half shaft width. ADDITIONAL FINDINGS: None. IMPRESSION: Right second through eighth rib fractures with segmental third through fifth rib fractures. No pneumo thorax. There is at most one half shaft width of maximal displacement. Age indeterminate but favored chronic thoracic compression fractures. MRI could better establish acui ty if clinically indicated. Solid right middle lobe pulmonary nodule measuring 7mm. Recommend 6 month follow-up chest CT.
[2024-11-11 16:03] LABS: Sqamous Epithelial <5 /HPF (None Seen); Urine Bacteria <20 /HPF (<20); Urine Bilirubin NEGATIVE (Negative); Urine Blood 1+ (Negative); Urine Clarity Extremely Turbid (Clear); Urine Color Yellow (Yellow); Urine Crystals Unidentified Few /HPF (None Seen); Urine Culture Reflex Order NOT NEEDED; Urine Glucose NEGATIVE (Negative); Urine Ketones NEGATIVE (Negative); Urine Microscopic Reflex YN ORDER UMIC; Urine Nitrite NEGATIVE (Negative); Urine Protein TRACE (Negative); Urine Urobilinogen 1+ (Normal); Urine WBC <5 /HPF (<5); Urine WBC Clump Rare /HPF (None Seen); Urine Yeast (Budding) Trace /HPF (None Seen); Urine pH 5.5 (5.0-7.0)
--- NOTE | 2024-11-11 16:05 | RAD REPORT ---
EXAMINATION: CT HEAD WITHOUT CONTRAST CT CERVICAL SPINE WITHOUT CONTRAST CLINICAL INDICATION: Female, 78 years old. TRAUMA TECHNIQUE: Axial CT images from the skull base to the vertex without intravenous contrast. Axial CT i mages through the cervical spine were obtained without intravenous contrast. Sagittal and coronal reformatted images were created from the data set. Coronal and sagittal reformatted images were creat ed from the data set. One or more of the following dose reduction techniques were used: Automated exposure control, adjustment of the mA and/or kV according to patient size, and/or iterative reconstr uction. Unless otherwise specified, incidental findings do not require dedicated imaging follow-up. [id number]. COMPARISON: 11/30/2023 FINDINGS: Head: INTRACRANIAL: No acute intracranial hemorrhage. Ex vacuo dilatation of the ventricular system. No mas s effect or midline shift. Mild chronic small vessel ischemic changes.Severe cerebral atrophy. Remote right occipital lobe infarct. VASCULATURE: No visualized abnormalities in the arteries or dural venous sinuses. SCALP/SKULL: No calvarial fracture identified. Right parietal scalp hematoma. SINUSES: The visualized paranasal sinuses are mostly clear. No significant mastoid fluid. Cervical spine: ALIGNMENT: The cervical spine has normal alignment without scoliosis or spondylolisthesis. BONE: Vertebral body heights are maintained. No aggressive osseous lesions. DEGENERATIVE: Multilevel cervical spondylosis with evidence of bilateral neural foraminal narrowing. No high grade central spinal stenosis. Neural foraminal narrowing is most pronounced bilaterally at C5-6. SOFT TISSUE: No significant abnormalities in the soft tissue of the neck. The visualized lung apices are clear. IMPRESSION: No acute intracranial abnormality. No acute fracture or traumatic malalignment of the cervical spine.
[2024-11-11 16:11] LABS: PT Prothrombin Time 16.9 SECONDS (10.0-13.0)
[2024-11-11 16:12] LABS: Protime INR 1.51
[2024-11-11] MEDS ORDERED: MORPHINE 2 MG/ML SYR ONE ×2 (16:14→17:37)
--- NOTE | 2024-11-11 16:19 | EDPHYS ---
Physician Documentation [facility] Name: Ning Coffey Age: 78 yrs Sex: Female : 1945 Arrival Date: 11/11/2024 Time: 13:42 Bed 12 Private MD: ED Physician Raz Freire HPI: 11/11 15:32 This 78 yrs old Female presents to ER via EMS with complaints of Fall Injury. dyan 15:32 Details of fall: The patient fell from a height, down approximately 3 stairs. Onset: [facility] The symptoms/episode began/occurred just prior to arrival. Associated injuries: The patient sustained injury to the head, injury to the chest, injury to the abdomen. Severity of symptoms: At their worst the symptoms were mild, in the emergency department the symptoms are unchanged. The patient has experienced similar episodes in the past, multiple times. Historical: - Allergies: 14:00 Levaquin; hb 14:00 Polysporin; hb 14:00 Sulfa (Sulfonamide Antibiotics); hb - Home Meds: 14:00 Eliquis oral [Active]; hb - PMHx: 14:00 Anxiety; CVA; Parkinsons; hb - PSHx: 14:00 hysterectomy; Splenectomy; hb - Immunization history:: Adult Immunizations up to date. - Infectious Disease History:: Denies. - Immunization history: Last tetanus immunization: - up to date. - Social history:: Smoking status: Patient denies any tobacco usage or history of. ROS: 15:34 Constitutional: Negative for fever, chills, and weight loss, Eyes: Negative for injury, dyan pain, redness, and discharge, ENT: Negative for injury, pain, and discharge, Neck: Negative for injury, pain, and swelling, Cardiovascular: Negative for chest pain, palpitations, and edema, Respiratory: Negative for shortness of breath, cough, wheezing, and pleuritic chest pain, Abdomen/GI: Negative for abdominal pain, nausea, vomiting, diarrhea, and constipation, Back: Negative for injury and pain, : Negative for injury, bleeding, discharge, and swelling, Skin: Negative for injury, rash, and discoloration, Neuro: Negative for headache, weakness, numbness, tingling, and seizure, Psych: Negative for depression, anxiety, suicide ideation, homicidal ideation, and hallucinations, Allergy/Immunology: Negative for hives, rash, and allergies, Endocrine: Negative for neck swelling, polydipsia, polyuria, polyphagia, and marked weight changes, Hematologic/Lymphatic: Negative for swollen nodes, abnormal bleeding, and unusual bruising, 15:34 MS/extremity: Positive for decreased range of motion, pain, tenderness, of the face, Exam: 15:34 Constitutional: This is a well developed, well nourished patient who is awake, alert, dyan and in no acute distress. Eyes: Pupils equal round and reactive to light, extra-ocular motions intact. Lids and lashes normal. Conjunctiva and sclera are non-icteric and not injected. Cornea within normal limits. Periorbital areas with no swelling, redness, or edema. ENT: Nares patent. No nasal discharge, no septal abnormalities noted. Tympanic membranes are normal and external auditory canals are clear. Oropharynx with no redness, swelling, or masses, exudates, or evidence of obstruction, uvula midline. Mucous membranes moist. Neck: Trachea midline, no thyromegaly or masses palpated, and no cervical lymphadenopathy. Supple, full range of motion without nuchal rigidity, or vertebral point tenderness. No Meningismus. Chest/axilla: Normal chest wall appearance and motion. Nontender with no deformity. No lesions are appreciated. Cardiovascular: Regular rate and rhythm with a normal S1 and S2. No gallops, murmurs, or rubs. Normal PMI, no JVD. No pulse deficits. Respiratory: Lungs have equal breath sounds bilaterally, clear to auscultation and percussion. No rales, rhonchi or wheezes noted. No increased work of breathing, no retractions or nasal flaring. Abdomen/GI: Soft, non-tender, with normal bowel sounds. No distension or tympany. No guarding or rebound. No evidence of tenderness throughout. Back: No spinal tenderness. No costovertebral tenderness. Full range of motion. Skin: Warm, dry with normal turgor. Normal color with no rashes, no lesions, and no evidence of cellulitis. MS/ Extremity: Pulses equal, no cyanosis. Neurovascular intact. Full, normal range of motion., bilateral aka Neuro: Awake and alert, GCS 15, oriented to person, place, time, and situation. Cranial nerves II-XII grossly intact. Motor strength 5/5 in all extremities. Sensory grossly intact. Cerebellar exam normal. Normal gait. Psych: Awake, alert, with orientation to person, place and time. Behavior, mood, and affect are within normal limits. 15:34 Head/face: Noted is contusion, hematoma, that is mild, of the right temporal area, 15:46 ECG was reviewed by the Attending Physician. [facility] Vital Signs: 13:58 BP 74 / 57; Pulse 77; Resp 16; Temp 98; Pulse Ox 96% on 2 lpm NC; Pain 7/10; hb 15:30 BP 154 / 87; Pulse 77; Resp 21; Pulse Ox 97% ; Pain 10/10; hb 16:35 BP 147 / 76; Pulse 72; Resp 21; Pulse Ox 98% on 2 lpm NC; Pain 8/10; hb 17:45 BP 136 / 76; Pulse 70; Resp 19; Pulse Ox 98% on R/A; hb 13:58 Pain Scale: Adult hb 15:30 Pain Scale: Adult hb 16:35 Pain Scale: Adult hb [place] Coma Score: 15:00 Eye Response: spontaneous(4). Motor Response: obeys commands(6). Verbal Response: hb oriented(5). Total: 15. 15:35 Eye Response: spontaneous(4). Motor Response: obeys commands(6). Verbal Response: dyan oriented(5). Total: 15. Trauma Score (Adult): 14:15 Eye Response: spontaneous(1); Verbal Response: oriented(1); Motor Response: obeys hb commands(2); Systolic BP: > 89 mm Hg(4); Respiratory Rate: 10 to 29 per min(4); [place] Score: 15; Trauma Score: 12 15:00 Eye Response: spontaneous(1); Verbal Response: oriented(1); Motor Response: obeys hb commands(2); Systolic BP: > 89 mm Hg(4); Respiratory Rate: 10 to 29 per min(4); Tim Score: 15; Trauma Score: 12 16:00 Eye Response: spontaneous(1); Verbal Response: oriented(1); Motor Response: obeys hb commands(2); Systolic BP: > 89 mm Hg(4); Respiratory Rate: 10 to 29 per min(4); Tim Score: 15; Trauma Score: 12 MDM: 13:51 Medical Screening Exam initiated dyan 13:51 Medical Screening Exam initiated dyan 15:35 Differential diagnosis: Contusion of head, Hematoma on Laceration of Intracranial dyan bleed- Concussion without LOC. cerebral contusion. Differential Diagnosis altered mental status, flu. Differential diagnosis: abrasion, closed head injury, contusion, fracture, laceration, multiple trauma, sprain, strain. Data reviewed: vital signs, nurses notes, lab test result(s), radiologic studies, CT scan, plain films. Consideration of Admission/Observation Escalation of care including admission/observation considered. I considered the following discharge prescriptions or medication management in the emergency department Medications were administered in the Emergency Department. See MAR. Independent interpretation of the following test(s) in the Emergency Department X-Ray: My interpretation is cxr, forearm, ct traumagram. Test considered but Not performed: MRI: no mri brain. Historians other than the Patient: EMS: ems well informed. Care significantly affected by the following chronic conditions: cva , weakness, falls, parkinsons. Counseling: I had a detailed discussion with the patient and/or guardian regarding the historical points, exam findings, and any diagnostic results supporting the discharge/admit diagnosis, lab results, radiology results, the need for outpatient follow up, for definitive care, a family practitioner. 11/11 13:54 Order name: Basic Metabolic Panel [facility] 11/11 13:54 Order name: CBC with Diff; Complete Time: 15:40 [facility] 11/11 13:54 Order name: LFT's 11/11 13:54 Order name: Magnesium dyan 11/11 13:54 Order name: NT PRO-BNP [facility] 11/11 13:54 Order name: PT-INR; Complete Time: 16:20 [facility] 11/11 13:54 Order name: Troponin HS [facility] 11/11 13:54 Order name: Lipase [facility] 11/11 13:54 Order name: Urinalysis w/ reflexes; Complete Time: 16:20 [facility] 11/11 13:54 Order name: XRAY Chest (1 view); Complete Time: 15:40 [facility] 11/11 14:00 Order name: Head C Spine Mpr Wo Con; Complete Time: 16:20 [facility] 11/11 14:01 Order name: Chest Abdomen Pelvis W Cont; Complete Time: 16:20 [facility] 11/11 14:22 Order name: Forearm Right XRAY; Complete Time: 15:40 [facility] 11/11 13:54 Order name: EKG - Nurse/Tech; Complete Time: 15:55 [facility] 11/11 13:54 Order name: IV Saline Lock; Complete Time: 14:07 [facility] 11/11 13:54 Order name: Labs collected and sent; Complete Time: 15:55 [facility] 11/11 13:54 Order name: O2 Per Protocol; Complete Time: 14:07 [facility] 11/11 13:54 Order name: O2 Sat Monitoring; Complete Time: 14:07 [facility] 11/11 14:35 Order name: Labs - recollect needed: blue and green; Complete Time: 15:54 bc6 11/11 15:39 Order name: Vital Signs; Complete Time: 15:54 [facility] 11/11 16:20 Order name: NPO; Complete Time: 16:46 [facility] EC:46 Rate is 79 beats/min. Rhythm is irregularly irregular. QRS [place] is Normal. CO interval dyan is normal. QRS interval is normal. QT interval is normal. No Q waves. T waves are Normal. No ST changes noted. Clinical impression: Atrial Fibrillation. Interpreted by me. Reviewed by me. Administered Medications: 14:36 Drug: NS 0.9% IV 500 ml 500 ml IV at 1 bolus once; to be given as a bolus over 30 hb minutes Volume: 500 ml; Route: IV; Rate: 1 bolus; Site: left antecubital; 15:05 Follow up: Response: No adverse reaction; IV Status: Completed infusion; IV Intake: hb 500ml 14:36 Drug: NS 0.9% IV 500 ml 500 ml IV at 125 ml/hr once; to be given as a bolus over 30 hb minutes Volume: 500 ml; Route: IV; Rate: 125 ml/hr; Site: left antecubital; 17:45 Follow up: Response: No adverse reaction; IV Status: Infusion continued upon transfer; hb IV Intake: 500ml 14:36 Drug: fentaNYL (PF) IVP 25 mcg IVP once Route: IVP; Site: left antecubital; hb 15:00 Follow up: Response: No adverse reaction hb 14:37 Drug: Ondansetron IVP 4 mg IVP once; over 2 minutes Route: IVP; Site: left antecubital; hb 15:00 Follow up: Response: No adverse reaction hb 15:54 Drug: NS 0.9% IV 500 ml 500 ml IV at 1 bolus once; to be given as a bolus over 30 hb minutes Volume: 500 ml; Route: IV; Rate: 1 bolus; Site: left antecubital; 16:15 Follow up: Response: No adverse reaction; IV Status: Completed infusion; IV Intake: hb 500ml 15:54 Drug: fentaNYL (PF) IVP 25 mcg IVP once Route: IVP; Site: left antecubital; hb 16:15 Follow up: Response: No adverse reaction hb 15:55 Drug: Carbidopa-Levodopa PO Oral Disintegrating Tablet 25 mg-100 mg 1 tabs PO once hb Route: PO; 16:45 Follow up: Response: No adverse reaction hb 16:23 Drug: morphine IVP or IV 2 mg IVP once over 4 mins Route: IVP; Infused Over: 4 mins; hb Site: left antecubital; 17:00 Follow up: Response: No adverse reaction hb 16:23 Drug: Ondansetron IVP 4 mg IVP once; over 2 minutes Route: IVP; Site: left antecubital; hb 17:00 Follow up: Response: No adverse reaction hb 17:45 Follow up: Response: Medication administered at discharge. hb 17:45 Drug: morphine IVP or IV 2 mg IVP once over 4 mins Route: IVP; Infused Over: 4 mins; hb Site: left antecubital; 17:50 Follow up: Response: Medication administered at discharge. hb Disposition Summary: 11/11/24 16:18 Transfer Ordered Notes: Transfer Location: [facility] dyan Reason: Higher level of care dyan Condition: Stable dyan Problem: new dyan Symptoms: have improved dyan Accepting Physician: alex vauxhall(11/11/24 17:55) ap3 Diagnosis - Fall (on) (from) other stairs and steps dyan - Parkinson's disease dyan - Multiple fractures of ribs, right side - 2-8 th rib fractures, 3-5 segmental dyan fractures - Persistent atrial fibrillation dyan - MCC (current) use of anticoagulants - eliquis dyan - Solitary pulmonary nodule dyan - Unspecified injury of head, initial encounter - right scalp hematoma dyan Discharge Instructions: - Discharge Summary Sheet dyan - Atelectasis, Adult dyan - Atrial Fibrillation dyan - Head Injury, Adult dyan - How to Use an Incentive Spirometer dyan - Head Injury, Adult, [id number] dyan - Atrial Fibrillation, [id number] dyan - Parkinson's Disease, [id number] dyan - Incentive Spirometer Record [facility] Forms: - Medication Reconciliation Form dyan - SBAR form dyan Prescriptions: - Motrin IB 200 mg Oral tablet - take 2 tablet ORAL route every 6 hours As needed as needed with food; 26 dyan tablet; Refills: 0, Product Selection Permitted - Tylenol-Codeine #3 300mg-30mg Oral tablet - take 1 tablet ORAL route every 4 hours As needed prn severe pain, fall dyan percautoins; 16 tablet; Refills: 0, Product Selection Permitted Signatures: Dispatcher [employer] EDMS Raz Freire MD MD cha Baxter, Heather, RN RN hb Ivelisse Salas RN RN ap3 Iris Rubin6 Corrections: (The following items were deleted from the chart) 13:55 13:55 BASIC METABOLIC PANEL+C.LAB.BRZ ordered. EDMS EDMS 13:55 13:55 CBC+H.LAB.BRZ ordered. EDMS EDMS 13:55 13:55 HEPATIC FUNCTION+C.LAB.BRZ ordered. EDMS EDMS 13:55 13:55 MAGNESIUM+C.LAB.BRZ ordered. EDMS EDMS 13:55 13:55 PROBNP+C.LAB.BRZ ordered. EDMS EDMS 13:55 13:55 PROTIME (+INR)+COAG.LAB.BRZ ordered. EDMS EDMS 13:55 13:55 Troponin High Sensitivity+C.LAB.BRZ ordered. EDMS EDMS 13:55 13:55 LIPASE+C.LAB.BRZ ordered. EDMS EDMS 13:55 13:55 Urinalysis+U.LAB.BRZ ordered. EDMS EDMS 13:55 13:55 Chest Single View+RAD.RAD.BRZ ordered. EDMS EDMS 13:55 13:55 Head C Spine CAP W Con+CT.RAD.BRZ ordered. EDMS EDMS 14:22 14:22 Forearm Right+RAD.RAD.BRZ ordered. EDMS EDMS 15:40 15:40 IS+RC.RAD.BRZ ordered. EDMS EDMS 16:27 16:18 to danita zaidi dyan 16:32 16:27 to danita zaidi dyan 17:55 16:32 to danita zaidi ap3
--- NOTE | 2024-11-11 16:19 | ER ---
Nurse's Notes [facility] Name: Ning Coffey Age: 78 yrs Sex: Female : 1945 Arrival Date: 11/11/2024 Time: 13:42 Bed 12 Private MD: Diagnosis: Fall (on) (from) other stairs and steps;Parkinson's disease;Multiple fractures of ribs, right side-2-8 th rib fractures, 3-5 segmental fractures;Persistent atrial fibrillation;nursing home (current) use of anticoagulants-eliquis;Solitary pulmonary nodule;Unspecified injury of head, initial encounter-right scalp hematoma Presentation: 11/11 13:58 Chief complaint: EMS states: Right lateral chest wall pain after mechanical fall down 4 hb stairs this afternoon. Found on tile floor by neighbor. Negative LOC. C Collar in place. Right forearm splint in place from fall yesterday. Fentanyl 100 mcg and Zofran 4mg IVP administered to 20g [employer]AC [employer]. Coronavirus screen: At this time, the client does not indicate any symptoms associated with coronavirus-19. Ebola Screen: No symptoms or risks identified at this time. Initial Sepsis Screen: Does the patient meet any 2 criteria? No. Patient's initial sepsis screen is negative. Does the patient have a suspected source of infection? No. Patient's initial sepsis screen is negative. Risk Assessment: Do you want to hurt yourself or someone else? Patient reports no desire to harm self or others. Onset of symptoms was November 11, 2024. 13:58 Method Of Arrival: EMS: [facility] 13:58 Acuity: DANIELLE 2 hb 14:00 Care prior to arrival: Medication(s) given: Fentanyl 50 mcg x 2, Zofran 4 mg IVP. hb Mechanism of Injury: Fall down 4 steps. Trauma event details: Injury occurred in the [facility], Injury occurred: at home. Injury occurred: November 11, 2024. Trauma Activation: Not Applicable Physician: ED Physician; Name: ; Notified At: ; Arrived At: Physician: General Surgeon; Name: ; Notified At: ; Arrived At: Physician: Radiology; Name: ; Notified At: ; Arrived At: Physician: Respiratory; Name: ; Notified At: ; Arrived At: Physician: Lab; Name: ; Notified At: ; Arrived At: Historical: - Allergies: 14:00 Levaquin; hb 14:00 Polysporin; hb 14:00 Sulfa (Sulfonamide Antibiotics); hb - Home Meds: 14:00 Eliquis oral [Active]; hb - PMHx: 14:00 Anxiety; CVA; Parkinsons; hb - PSHx: 14:00 hysterectomy; Splenectomy; hb - Immunization history:: Adult Immunizations up to date. - Infectious Disease History:: Denies. - Immunization history: Last tetanus immunization: - up to date. - Social history:: Smoking status: Patient denies any tobacco usage or history of. Screenin:00 [facility] ED Fall Risk Assessment (Adult) History of falling in the last 3 months, hb including since admission Yes- physiologic fall (2 pts) Confusion or Disorientation No (0 pts) Intoxicated or Sedated Yes (3 pts) Impaired Gait Yes (1 pt) Mobility Assist Device Used No (0 pt) Altered Elimination No (0 pt) Score/Fall Risk Level 3 or more points = High Risk Oriented to surroundings, Maintained a safe environment, Educated pt \T\ family on fall prevention, incl call for assistance when getting out of bed. Nutritional screening: No deficits noted. 14:45 Abuse screen: Denies threats or abuse. Denies injuries from another. Tuberculosis hb screening: No symptoms or risk factors identified. Primary Survey: 14:00 NO uncontrolled hemorrhage observed. A: The client is awake and alert. The airway is hb patent. Breathing/Chest: Respiratory effort: spontaneous, Respiratory pattern: tachypnea. Circulation: No external hemorrhage present. Regular and strong central pulse, skin warm/dry/normal color. Disability Client is alert. Exposure/Environment: There is no evidence of uncontrolled external bleeding. A warming method has been applied: A warm blanket has been provided to the patient. 15:00 Reassessment Alertness and Airway: Awake and alert. The airway is patent. Breathing: hb Respiratory effort Spontaneous Respiratory pattern Tachypnea Chest inspection Symmetrical Circulation: No external hemorrhage noted. Regular and strong central pulse, skin warm/dry/normal color. Disability: Alert. 16:00 Reassessment Alertness and Airway: Awake and alert. The airway is patent. Breathing: hb Respiratory effort Spontaneous Labored Respiratory pattern Tachypnea Chest inspection Symmetrical Circulation: No external hemorrhage noted. Regular and strong central pulse, skin warm/dry/normal color. Disability: Alert. Assessment: 14:15 General: Appears in no apparent distress. uncomfortable, Behavior is cooperative, hb anxious, restless. Pain: Pain currently is 10 out of 10 on a pain scale. Neuro: GCS 15. EENT: No signs and/or symptoms were reported regarding the EENT system. Cardiovascular: Patient's skin is warm and dry. Respiratory: Respiratory effort is labored, Respiratory pattern is symmetrical, tachypnea. GI: No signs and/or symptoms were reported involving the gastrointestinal system. : No signs and/or symptoms were reported regarding the genitourinary system. Derm: Skin is pink, warm \T\ dry. Musculoskeletal: Reports severe right lateral chest wall pain. 15:15 Reassessment: Patient appears in no apparent distress at this time. No changes from hb previously documented assessment. Patient and/or family updated on plan of care and expected duration. Pain level reassessed. 16:15 Reassessment: No changes from previously documented assessment. Patient and/or family hb updated on plan of care and expected duration. Pain level reassessed. 16:46 Reassessment: Report called to Rosalva MURILLO at [facility]. hb 17:45 Reassessment: Patient appears in no apparent distress at this time. No changes from hb previously documented assessment. Patient and/or family updated on plan of care and expected duration. Pain level reassessed. Vital Signs: 13:58 BP 74 / 57; Pulse 77; Resp 16; Temp 98; Pulse Ox 96% on 2 lpm NC; Pain 7/10; hb 15:30 BP 154 / 87; Pulse 77; Resp 21; Pulse Ox 97% ; Pain 10/10; hb 16:35 BP 147 / 76; Pulse 72; Resp 21; Pulse Ox 98% on 2 lpm NC; Pain 8/10; hb 17:45 BP 136 / 76; Pulse 70; Resp 19; Pulse Ox 98% on R/A; hb 13:58 Pain Scale: Adult hb 15:30 Pain Scale: Adult hb 16:35 Pain Scale: Adult hb Tim Coma Score: 15:00 Eye Response: spontaneous(4). Motor Response: obeys commands(6). Verbal Response: hb oriented(5). Total: 15. 15:35 Eye Response: spontaneous(4). Motor Response: obeys commands(6). Verbal Response: dyan oriented(5). Total: 15. Trauma Score (Adult): 14:15 Eye Response: spontaneous(1); Verbal Response: oriented(1); Motor Response: obeys hb commands(2); Systolic BP: > 89 mm Hg(4); Respiratory Rate: 10 to 29 per min(4); Tim Score: 15; Trauma Score: 12 15:00 Eye Response: spontaneous(1); Verbal Response: oriented(1); Motor Response: obeys hb commands(2); Systolic BP: > 89 mm Hg(4); Respiratory Rate: 10 to 29 per min(4); [place] Score: 15; Trauma Score: 12 16:00 Eye Response: spontaneous(1); Verbal Response: oriented(1); Motor Response: obeys hb commands(2); Systolic BP: > 89 mm Hg(4); Respiratory Rate: 10 to 29 per min(4); Tim Score: 15; Trauma Score: 12 ED Course: 13:51 Patient arrived in ED. dyan 13:51 Raz Freire MD is Attending Physician. dyan 13:57 Brandi Castillo, RN is Primary Nurse. hb 14:00 Triage completed. hb 14:00 Arm band placed on. hb 14:00 Provided Education on: medications, use of call light . hb 14:00 Thermoregulation: warm blanket given to patient. hb 14:26 Initial lab(s) drawn, by me, sent to lab. Maintain EMS IV. Dressing intact. Good blood hb return noted. Site clean \T\ dry. Gauge \T\ site: 20g LAC. Flushed with 10 mL NS. 14:31 XRAY Chest (1 view) In Process Unspecified. EDMS 14:31 Forearm Right XRAY In Process Unspecified. EDMS 14:45 Patient has correct armband on for positive identification. Bed in low position. Call hb light in reach. 14:45 Oxygen administration via nasal cannula \T\ 2L/min. hb 15:20 Head C Spine Mpr Wo Con In Process Unspecified. EDMS 15:20 Chest Abdomen Pelvis W Cont In Process Unspecified. EDMS 16:25 initiated and received acceptance with Chery Limon [facility]. bc6 16:53 Steve with [facility] given ETA of 1 hour. bc6 16:55 Sarihha with [facility] given 1 hr ETA. bc6 17:05 Lyla with [facility] accepted transfer with 30 minute ETA. bc6 17:45 No provider procedures requiring assistance completed. Patient transferred, IV remains hb in place. Administered Medications: 14:36 Drug: NS 0.9% IV 500 ml 500 ml IV at 1 bolus once; to be given as a bolus over 30 hb minutes Volume: 500 ml; Route: IV; Rate: 1 bolus; Site: left antecubital; 15:05 Follow up: Response: No adverse reaction; IV Status: Completed infusion; IV Intake: hb 500ml 14:36 Drug: NS 0.9% IV 500 ml 500 ml IV at 125 ml/hr once; to be given as a bolus over 30 hb minutes Volume: 500 ml; Route: IV; Rate: 125 ml/hr; Site: left antecubital; 17:45 Follow up: Response: No adverse reaction; IV Status: Infusion continued upon transfer; hb IV Intake: 500ml 14:36 Drug: fentaNYL (PF) IVP 25 mcg IVP once Route: IVP; Site: left antecubital; hb 15:00 Follow up: Response: No adverse reaction hb 14:37 Drug: Ondansetron IVP 4 mg IVP once; over 2 minutes Route: IVP; Site: left antecubital; hb 15:00 Follow up: Response: No adverse reaction hb 15:54 Drug: NS 0.9% IV 500 ml 500 ml IV at 1 bolus once; to be given as a bolus over 30 hb minutes Volume: 500 ml; Route: IV; Rate: 1 bolus; Site: left antecubital; 16:15 Follow up: Response: No adverse reaction; IV Status: Completed infusion; IV Intake: hb 500ml 15:54 Drug: fentaNYL (PF) IVP 25 mcg IVP once Route: IVP; Site: left antecubital; hb 16:15 Follow up: Response: No adverse reaction hb 15:55 Drug: Carbidopa-Levodopa PO Oral Disintegrating Tablet 25 mg-100 mg 1 tabs PO once hb Route: PO; 16:45 Follow up: Response: No adverse reaction hb 16:23 Drug: morphine IVP or IV 2 mg IVP once over 4 mins Route: IVP; Infused Over: 4 mins; hb Site: left antecubital; 17:00 Follow up: Response: No adverse reaction hb 16:23 Drug: Ondansetron IVP 4 mg IVP once; over 2 minutes Route: IVP; Site: left antecubital; hb 17:00 Follow up: Response: No adverse reaction hb 17:45 Follow up: Response: Medication administered at discharge. hb 17:45 Drug: morphine IVP or IV 2 mg IVP once over 4 mins Route: IVP; Infused Over: 4 mins; hb Site: left antecubital; 17:50 Follow up: Response: Medication administered at discharge. Medication: 17:45 VIS not applicable for this client. hb Intake: 15:05 IV: 500ml; Total: 500ml. hb 16:00 PO: 25ml; Total: 525ml. hb 16:15 IV: 500ml; Total: 1025ml. hb 17:45 IV: 500ml; Total: 1525ml. hb Output: 16:00 Urine: 200ml (Voided); Total: 200ml. hb Outcome: 16:18 ER care complete, transfer ordered by MD. zaidi 17:45 Transferred by ground EMS to [facility], 17:45 Condition: stable 17:45 Instructed on the need for transfer, Demonstrated understanding of instructions, 17:45 Patient's length of stay in the Emergency Department was greater than 2 hours. awaiting hb acceptance and transport Patient's length of stay extended due to 17:55 Patient left the ED. ap3 Signatures: Dispatcher [employer] Raz Perez MD MD cha Baxter, Heather, RN Ivelisse Mendez RN RN ap3 Iris Rubin 6
[2024-11-11 16:21] LABS: ALT/SGPT < 14 U/L (13-56); AST/SGOT 65 U/L (15-37); Albumin 2.9 g/dL (3.4-5.0); Albumin/Globulin Ratio 0.9 (1.1-1.8); Alkaline Phosphatase 82 U/L (45-117); Anion Gap 10.5 mEq/L (5.0-15.0); BUN Blood Urea Nitrogen 22 mg/dL (7-18); Bicarbonate 27 mEq/L (21-32); Bilirubin Direct 0.2 mg/dL (0-0.2); Bilirubin Indirect, Calculated 0.4 mg/dL (0.2-0.8); Bilirubin Total 0.6 mg/dL (0.2-1.0); Globulin 3.4 g/dL (2.3-3.5); Glomerular Filtration Rate 86 ml/min (=/>90); Glucose Level 116 mg/dL (74-106); Lipase 32 U/L (13-75); Magnesium 2.1 mg/dL (1.6-2.4); NT PRO-BNP 853 pg/mL (<450); Potassium 4.5 mEq/L (3.5-5.1); Protein, Total 6.3 g/dL (6.4-8.2); Sodium Level 141 mEq/L (136-145); Troponin High Sensitivity 12.9 pg/mL (<58.9)
[2024-11-11 18:19] VITALS: TEMP 98
[2024-11-11 18:28] VITALS: BP 147/76; O2SAT 98
== END 2024-11-11 17:55 | disposition short-term general hospital (02) ==
LOC: ER 13:42
DX: S22.41XA Multiple fractures of ribs, right side, initial encounter for closed fracture (principal); S00.03XA Contusion of scalp, initial encounter; W10.9XXA Fall (on) (from) unspecified stairs and steps, initial encounter; R91.1 Solitary pulmonary nodule; I48.19 Other persistent atrial fibrillation; Z79.01 Long term (current) use of anticoagulants; G20.A1 Parkinson's disease without dyskinesia, without mention of fluctuations
CPT/HCPCS: 96361; 85025; 81001; 80048; 36415; 83735; 85610; 80076; 84484; 83690; 83880; 70450; 72125; 71260; 74177; 71045; 73090; 96375; 96374; 99285; Q9967; J3010 ×2; J2270 ×2; J2405 ×2; J7030; 93005